=== PATIENT | male | born 1955 | race Caucasian/White ===

== ENCOUNTER 2023-09-27 21:27 | Observation (INO) | payer BC, SELFPAY ==
[2023-09-27] VITALS (19 sets, daily range): BP systolic 153–190; BP diastolic 83–103; PULSE 57–66; RESP 17–28; TEMP 36.4; O2SAT 88–98; BMI 28.4
--- NOTE | 2023-09-27 21:41 | ED_ITS ---
HPI - SOB/Dyspnea General Chief Complaint: Shortness of Breath/Dyspnea Stated Complaint: sob Time Seen by Provider: 09/27/23 21:35 History of Present Illness HPI Narrative: history of CHF and A. fib. Presents complaining of dyspnea for the past week. No fever. Frequent cough. No cigarettes for 40 years. No fever. Has chronic left shoulder pain. No chest pain MD elicited complaint: shortness of breath and cough Pertinent past history: congestive heart failure Related Data Home Medications Medication Instructions Recorded Confirmed apixaban 5 mg tablet (Eliquis) 5 mg PO BID 09/27/23 09/27/23 furosemide 20 mg tablet 20 mg PO QAM 09/27/23 09/27/23 losartan 50 mg tablet 50 mg PO QAM 09/27/23 09/27/23 metoprolol succinate 100 mg 200 mg PO BID 09/27/23 09/27/23 tablet,extended release 24 hr potassium chloride 20 mEq 20 meq PO DAILY 09/27/23 09/27/23 tablet,extended release spironolactone 25 mg tablet 25 mg PO DAILY 09/27/23 09/27/23 Allergies Allergy/AdvReac Type Severity Reaction Status Date / Time No Known Drug Allergies Allergy Verified 09/27/23 21:31 Review of Systems ROS Status of ROS 10 or more systems reviewed and unremarkable except as noted in history and below Exam Constitutional Vital Signs, click to edit/add: Last Vital Signs Temp 97.5 F L 09/27/23 21:31 Pulse 76 09/28/23 00:00 Resp 18 09/28/23 00:00 BP 153/83 H 09/27/23 23:30 Pulse Ox 98 09/28/23 00:00 O2 Del Method Nasal Cannula 09/27/23 23:48 O2 Flow Rate 4 09/27/23 23:48 Common normals: no apparent distress, average body habitus, oriented x3, healthy appearing, alert and well nourished Eye Common normals: EOMs intact bilaterally and conjunctivae normal Respiratory Common normals: normal respiratory effort, no retractions and no use of accessory muscles Effort & inspection: audible wheezes Cardio Common normals: regular rate, regular rhythm, S1 normal heart sound and S2 no rmal heart sound GI Common normals: Normal to inspection, nondistended, normoactive bowel sounds present, soft to palpation and non-tender Extremity Common normals: normal to inspection, full ROM and normal capillary refill Neuro Common normals: oriented x3, CN's II-XII intact bilaterally, moves all extremities and no focal motor deficits Psych Appearance: grossly normal Course Vital Signs Vital signs: Vital Signs Temperature 97.5 F L 09/27/23 21:31 Pulse Rate 63 09/27/23 21:31 Respiratory Rate 20 09/27/23 21:31 Blood Pressure 190/88 H 09/27/23 21:31 Pulse Oximetry 88 L 09/27/23 21:31 Oxygen Delivery Method Room Air 09/27/23 21:31 Temperature 97.5 F L 09/27/23 21:31 Pulse Rate 76 09/28/23 00:00 Respiratory Rate 18 09/28/23 00:00 Blood Pressure 153/83 H 09/27/23 23:30 Pulse Oximetry 98 09/28/23 00:00 Oxygen Delivery Method Nasal Cannula 09/27/23 23:48 Oxygen Delivery Flow Rate 4 09/27/23 23:48 MDM - SOB/Dyspnea MDM Narrative Medical decision making narrative: patient has history of CHF and A. fib . Arrives short of breath and found to have pulse ox RA 88%. Exam with mild diffuse wheeze. No complaint of chest pain. Cxray with mild cardiomegaly. Treated with solumedro and albuterol NMT x2. Wheezing improved but not resolved. Troponin neg x 2. Patient is still requiring supplemental 02. Discussed with the hospitalist and will plan admission Lab Data Labs: Lab Results 09/27/23 Range/Units 21:40 WBC 12.6 H (4.0-11.0) 10^3/uL RBC 4.67 L (4.70-6.10) 10^6/uL Hgb 15.5 (14.0-18.0) g/dL Hct 44.6 (42.0-54.0) % MCV 95.5 H (80.0-94.0) fL MCH 33.2 (25.9-34.0) pg MCHC 34.8 (29.9-35.2) g/dL RDW 13.1 (11.0-15.0) % Plt Count 199 (150-450) 10^3/uL MPV 10.1 (9.5-13.5) fL Neut % (Auto) 62.0 (43.0-75.0) % Lymph % (Auto) 20.2 L (20.5-60.0) % [place] % (Auto) 8.8 (1.7-12.0) % Eos % (Auto) 7.5 H (0.9-7.0) % Baso % (Auto) 1.2 (0.2-2.0) % Neut # (Auto) 7.8 H (1.4-6.5) 10^3/uL Lymph # (Auto) 2.6 (1.2-3.8) 10^3/uL [place] # (Auto) 1.1 H (0.3-0.8) 10^3/uL Eos # (Auto) 0.9 H (0.0-0.7) 10^3/uL Baso # (Auto) 0.2 H (0.0-0.1) 10^3/uL Abs Immat Gran (auto) 0.04 H (0.00-0.03) 10^3/uL Imm/Tot Granulo (auto) 0.3 (0.0-0.5) % Sodium 138 (136-145) mmol/L Potassium 4.2 (3.5-5.1) mmol/L Chloride 100 (98-107) mmol/L Carbon Dioxide 33.8 H (21.0-32.0) mmol/L Anion Gap 8.4 BUN 20.0 H (7.0-18.0) mg/dL Creatinine 1.04 (0.70-1.30) mg/dL Est GFR ( Amer) >60 (>=60) Est GFR (Non-Af Amer) >60 (>=60) BUN/Creatinine Ratio 19.2 Glucose 99 (74-106) mg/dL Calcium 9.6 (8.5-10.1) mg/dL Troponin I High Sens 10.2 (4.0-76.1) pg/mL NT-Pro-B Natriuret Pep 37.0 (<=900.0) pg/mL Discharge Plan Discharge Chief Complaint: Shortness of Breath/Dyspnea Clinical Impression: Congestive heart failure, Hypoxemia, Acute bronchospasm Patient Disposition: Admitted as Observation
--- NOTE | 2023-09-27 21:44 | ECG_ITS ---
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
--- NOTE | 2023-09-27 21:44 | XR_ITS ---
The [address] [address] Patient Name: GARRY STREETER MRN: [id number] date: 1955 Sex: M Assigned Patient Location: ED.MAIN Current Patient Location: ER Accession/Order Number: [id number] Exam Date: 09/27/2023 22:06 Report Date: 09/27/2023 22:34 At the request of: ASTRID GAR Procedure: XR chest 1V EXAM: XR chest 1V HISTORY: short of breath COMPARISON: Chest x-ray 01/15/2023 TECHNIQUE: Single frontal view chest x-ray FINDINGS: Newly developing abnormal 1.8 cm nodular density at the right lower lung region. Mildly enlarged cardiac silhouette. No large pleural effusion, pneumothorax, or acute bony abnormality. XR/XR chest 1V IMPRESSION: Newly developing abnormal 1.8 cm nodular density at the right lower lung region. Recommend CT chest to evaluate for any underlying pulmonary nodule, nodular lung infiltrate, versus summation artifact. Mildly enlarged cardiac silhouette, similar to prior exam. Electronically authenticated by: GARRY GALLAGHER Date: 09/27/2023 22:34
[2023-09-27 21:49] LABS: Basophils Absolute Auto 0.2 10^3/uL (0.0-0.1); Basophils Percent Auto 1.2 % (0.2-2.0); Eosinophils Absolute Auto 0.9 10^3/uL (0.0-0.7); Eosinophils Percent Auto 7.5 % (0.9-7.0); Hematocrit 44.6 % (42.0-54.0); Hemoglobin 15.5 g/dL (14.0-18.0); Immature Granulocytes Abs Auto 0.04 10^3/uL (0.00-0.03); Immature Granulocytes Pct Auto 0.3 % (0.0-0.5); Lymphocytes Absolute Auto 2.6 10^3/uL (1.2-3.8); Lymphocytes Percent Auto 20.2 % (20.5-60.0); Mean Corpuscular HGB Conc 34.8 g/dL (29.9-35.2); Mean Corpuscular Hemoglobin 33.2 pg (25.9-34.0); Mean Corpuscular Volume 95.5 fL (80.0-94.0); Mean Platelet Volume 10.1 fL (9.5-13.5); Monocytes Absolute Auto 1.1 10^3/uL (0.3-0.8); Monocytes Percent Auto 8.8 % (1.7-12.0); Neutrophils Absolute Auto 7.8 10^3/uL (1.4-6.5); Platelet Count 199 10^3/uL (150-450); Red Blood Count 4.67 10^6/uL (4.70-6.10); Red Cell Distribution Width 13.1 % (11.0-15.0); White Blood Count 12.6 10^3/uL (4.0-11.0)
[2023-09-27] MEDS: METHYLPREDNISOLONE SOD SUCC PF 125 MG/2 ML VIAL IVP (22:00)
[2023-09-27 22:10] LABS: Anion Gap 8.4; BUN Creatinine Ratio 19.2; Calcium 9.6 mg/dL (8.5-10.1); Carbon Dioxide 33.8 mmol/L (21.0-32.0); Chloride 100 mmol/L (98-107); Estimated GFR (African America >60 (>=60); Estimated GFR (Non-African Ame >60 (>=60); Glucose 99 mg/dL (74-106); Potassium 4.2 mmol/L (3.5-5.1); Sodium 138 mmol/L (136-145); Troponin I High Sensitivity 10.2 pg/mL (4.0-76.1)
[2023-09-27] MEDS: ALBUTEROL SULFATE 2.5 MG/3 ML VIAL NEB IH ×2 (23:12→23:48)
--- NOTE | 2023-09-27 23:34 | PC.NURSE ---
Pt reports productive cough after breathing treatment, reports breathing improvement. Lung sounds have improved, still wheezing throughout all lung bases.
--- NOTE | 2023-09-27 23:43 | PC.NURSE ---
RN increased O2 needs to 6L nC, pt stating around 93%. Dr Anthony made aware. Additional breathing treatment ordered. RT made aware.
[2023-09-28] VITALS (35 sets, daily range): BP systolic 116–154; BP diastolic 65–88; PULSE 62–96; RESP 13–24; TEMP 36.6–36.7; O2SAT 87–98; BMI 27.1
[2023-09-28 00:53] LABS: Troponin I High Sensitivity 9.4 pg/mL (4.0-76.1)
--- NOTE | 2023-09-28 01:24 | W.PM.TELEPN ---
Progress Note: Subjective Subjective Interval history: 68yo man with a PMHx of CHF presented to the ED with shortness of breath and wheezing. He states that his symptoms started about 2 weeks ago and have slowly been worsening. He has had wheezing, a dry cough initially and now a cough with clear sputum. He denies any fevers, chills, N/V/D/C, chest pain. He has decreased exercise tolerance and was only able to walk about 25 feet before needing to stop. He denies any exposure to chemicals or any recent viral illnesses. Exam Constitutional Vital Signs, click to edit/add: Last Vital Signs Temp 97.5 F L 09/27/23 21:31 Pulse 68 09/28/23 01:00 Resp 18 09/28/23 01:00 BP 153/83 H 09/27/23 23:30 Pulse Ox 96 09/28/23 01:00 O2 Del Method Nasal Cannula 09/27/23 23:48 O2 Flow Rate 4 09/27/23 23:48 Documenting provider has reviewed patient's vital signs: yes Common normals: no apparent distress, average body habitus, oriented x3, no limitations, healthy appearing, alert and well nourished [facility] Common normals: normocephalic, head/scalp atraumatic, hearing grossly normal bilaterally, external ears normal and external nose normal Eye Common normals: PERRL, EOMs intact bilaterally, conjunctivae normal, no scleral icterus, normal visual horn by confrontation and fundi normal bilaterally Neck & C-Spine Common normals: full ROM, no lymphadenopathy, supple, no meningeal signs and no JVD Lymph Lymphatic: no lymphadenopathy noted Chest Common normals: inspection of chest normal and palpation of chest normal Respiratory Common normals: normal respiratory effort, no retractions and no use of accessory muscles Effort & inspection: audible wheezes Cardio Common normals: no JVD, regular rate, regular rhythm, S1 normal heart sound, S2 normal heart sound, no gallops, no clicks, no murmurs, no rub and peripheral pulses 2+ throughout GI Common normals: Normal to inspection, nondistended, normoactive bowel sounds present, soft to palpation and non-tender Extremity Common normals: normal to inspection, full ROM, normal capillary refill, no joint enlargement, no clubbing, cyanosis or edema, no calf tenderness and no pedal edema Progress Note: Objective Labs Labs: Short CBC 09/27/23 Range/Units 21:40 WBC 12.6 H (4.0-11.0) 10^3/uL Hgb 15.5 (14.0-18.0) g/dL Hct 44.6 (42.0-54.0) % Plt Count 199 (150-450) 10^3/uL BMP 09/27/23 21:40 Sodium 138 Potassium 4.2 Chloride 100 Carbon Dioxide 33.8 H BUN 20.0 H Creatinine 1.04 Glucose 99 Calcium 9.6 Progress Note: A&P Assessment and Plan (1) Acute bronchospasm: Assessment and Plan: He presented with wheezing and acute respiratory failure with hypoxia. He does not appear ot be volume overloaded and there is not an obvious infiltrate on imaging. Most likely this is bronchospasm, although he is only a remote smoker. - admit to hospitalist service - c/w supplemental oxygen - c/w methylprednisolone and duonebs - wean oxygen as tolerate (2) Congestive heart failure: Assessment and Plan: Does not appear to be volume overloaded. - c/w spironolactone, losartan - c/w metoprolol - c/w furosemide - I/O, daily weights - keep K >3 and Mg >2 (3) Atrial fibrillation: (4) High blood pressure: Assessment and Plan: Stable. - c/w metoprolol - c/w apixaban Telemedicine Attestation Telemedicine Attestation I conducted this encounter from [place] via secure live, [id number] video conference with the patient, located at [facility] with [facility] . Prior to the interview, the risks and benefits of telemedicine were discussed with the patient and verbal consent was obtained.
--- NOTE | 2023-09-28 01:57 | PC.NURSE ---
Bedside report given to ZOILA Carreon. Pt transported by this RN to bed 219.
[2023-09-28] MEDS: METHYLPREDNISOLONE SOD SUCC PF 40 MG/ML VIAL IVP ×2 (05:04→14:31)
[2023-09-28 05:46] LABS: Basophils Percent Auto 0.3 % (0.2-2.0); Eosinophils Percent Auto 0.2 % (0.9-7.0); Hematocrit 43.6 % (42.0-54.0); Immature Granulocytes Abs Auto 0.07 10^3/uL (0.00-0.03); Immature Granulocytes Pct Auto 0.7 % (0.0-0.5); Lymphocytes Absolute Auto 0.8 10^3/uL (1.2-3.8); Lymphocytes Percent Auto 7.6 % (20.5-60.0); Mean Corpuscular HGB Conc 34.4 g/dL (29.9-35.2); Mean Corpuscular Hemoglobin 32.8 pg (25.9-34.0); Mean Corpuscular Volume 95.2 fL (80.0-94.0); Mean Platelet Volume 10.3 fL (9.5-13.5); Monocytes Absolute Auto 0.1 10^3/uL (0.3-0.8); Monocytes Percent Auto 0.6 % (1.7-12.0); Neutrophils Percent Auto 90.6 % (43.0-75.0); Platelet Count 194 10^3/uL (150-450); Red Blood Count 4.58 10^6/uL (4.70-6.10); Red Cell Distribution Width 12.9 % (11.0-15.0)
[2023-09-28 06:00] LABS: Anion Gap 11.1; BUN Creatinine Ratio 21.4; Calcium 9.3 mg/dL (8.5-10.1); Carbon Dioxide 31.2 mmol/L (21.0-32.0); Chloride 100 mmol/L (98-107); Estimated GFR (African America >60 (>=60); Estimated GFR (Non-African Ame >60 (>=60); Glucose 157 mg/dL (74-106); Potassium 4.3 mmol/L (3.5-5.1); Sodium 138 mmol/L (136-145)
--- NOTE | 2023-09-28 06:44 | CT_ITS ---
[address] [address] Patient Name: GARRY STREETER MRN: [id number] date: 1955 Sex: M Assigned Patient Location: MS Current Patient Location: MS Accession/Order Number: [id number] Exam Date: 09/28/2023 07:40 Report Date: 09/28/2023 08:10 At the request of: SHAIKH JOSE MARIA Procedure: CT chest wo con EXAMINATION: CT chest wo con HISTORY: SOB, abnormal CHESTxr COMPARISON: Plain film 09/27/2023 TECHNIQUE: Multi-planar CT images were created with IV contrast. Axial, Coronal, and Sagittal images. Dose reduction techniques were achieved by using automated exposure control and/or adjustment of mA and/or kV according to patient size and/or use of iterative reconstruction technique. FINDINGS: LUNGS: Scattered punctate subcentimeter pulmonary nodules the largest is subpleural measuring 5.7 mm right lower lobe axial image 58, nonspecific. No focal right basilar nodule or mass to correspond to the plain film findings. Mild peribronchial thickening with no endobronchial filling or bronchiectasis PLEURA: No mass, effusion, or pneumothorax. VASCULATURE: No abnormality. FELIPA: No mass or adenopathy. MEDIASTINUM: No mass or adenopathy. CARDIAC: No enlargement or pericardial effusion. Minimal coronary atherosclerosis AORTA: No aneurysm or dissection. CHEST WALL: No mass or axillary adenopathy. BONES: No bone lesion or fracture. LIMITED ABDOMEN: Bilateral renal cortical hypodensities possibly cysts OTHER: Negative. CT/CT chest wo con IMPRESSION: No focal nodule or mass in the right lung base to correspond to the plain film findings, likely representing resolved atelectasis Scattered subcentimeter nonspecific pulmonary nodules measuring up to 5.7 mm Electronically authenticated by: NICK CABRALES Date: 09/28/2023 08:10
[2023-09-28] MEDS: METOPROLOL SUCCINATE 100 MG TAB.ER.24H 200 MG PO (08:48)
[2023-09-28] MEDS: FUROSEMIDE 40 MG/4 ML VIAL IVP (08:48)
[2023-09-28] MEDS: SPIRONOLACTONE 25 MG TABLET PO (08:49)
[2023-09-28] MEDS: APIXABAN 5 MG TABLET PO (08:49)
[2023-09-28] MEDS: POTASSIUM CHLORIDE 10 MEQ ER TABLET 20 MEQ PO (08:49)
[2023-09-28] MEDS: LOSARTAN POTASSIUM 50 MG TABLET PO (08:49)
[2023-09-28] MEDS: IPRATROPIUM/ALBUTEROL SULFATE 3 ML AMPUL.NEB IH ×4 (11:10→23:13)
--- NOTE | 2023-09-28 11:32 | PM.HP ---
H&P: HPI History of Present Illness Chief complaint: shortness of breath Narrative: 68 y o male with no formal diagnosis of COPD, former smoker, presents with one week hx of worsening SOB, cough with sputum, chest congestion, x 1 week. 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 He was evaluated in ED and w/u indicated acute resp failure with hypoxia. Patient was admitted for it and started on inhaled bronchodilators, systemic steroids. He reports feeling slightly better compared to when he came in. Earlier today, his sats were still in 87-88% on RA. During exam, I noted he had a wet sounding cough and was struggling with intermittent cough spells. Denies fever, chills, nausea, vomiting Review of Systems ROS Status of ROS 10 or more systems reviewed and unremarkable except as noted in history and below [facility] Medical History (Updated 09/28/23 @ 11:39 by Shaikh Segun MD) Atrial fibrillation ?I48.91 - Unspecified atrial fibrillation (ICD-10) Chronic systolic HF (heart failure) ?I50.22 - Chronic systolic (congestive) heart failure (ICD-10) Congestive heart failure ?I50.9 - Heart failure, unspecified (ICD-10) High blood pressure ?I10 - Essential (primary) hypertension (ICD-10) HTN (hypertension) ?I10 - Essential (primary) hypertension (ICD-10) 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 Highest level of school completed/degree received: high school graduate Are you now , , , , never or living with a partner: In a typical week, how many times do you talk on the telephone with family, friends, or neighbors: once per week How often do you get together with friends or relatives: once per week How often do you attend sikh or adventist services: never Do you belong to any clubs or organizations such as sikh groups unions, fraternal or athletic groups, or school groups: yes Total score: 2 Score interpretation: A score of greater than or equal to 2 indicates the lowest level of social isolation. Little interest or pleasure in doing things: not at all Feeling down, depressed, or hopeless: not at all Feel stressed/tense/nervous/anxious/difficulty sleeping: not at all Do you think of yourself as: straight/heterosexual Gender Identity: male Meds Home Medications and Allergies Home Medications Medication Instructions Recorded Confirmed Type apixaban 5 mg tablet (Eliquis) 5 mg PO BID 09/27/23 09/27/23 History furosemide 20 mg tablet 20 mg PO QAM 09/27/23 09/27/23 History losartan 50 mg tablet 50 mg PO QAM 09/27/23 09/27/23 History metoprolol succinate 100 mg 200 mg PO BID 09/27/23 09/27/23 History tablet,extended release 24 hr potassium chloride 20 mEq 20 meq PO DAILY 09/27/23 09/27/23 History tablet,extended release spironolactone 25 mg tablet 25 mg PO DAILY 09/27/23 09/27/23 History Allergies Allergy/AdvReac Type Severity Reaction Status Date / Time No Known Drug Allergies Allergy Verified 09/27/23 21:31 Exam Constitutional Vital Signs, click to edit/add: Last Vital Signs Temp 97.9 F 09/28/23 04:01 Pulse 63 09/28/23 11:11 Resp 20 09/28/23 01:50 BP 139/84 09/28/23 08:50 Pulse Ox 90 L 09/28/23 11:11 O2 Del Method Nasal Cannula 09/28/23 11:11 O2 Flow Rate 1 09/28/23 11:11 Documenting provider has reviewed patient's vital signs: yes Common normals: no apparent distress and oriented x3 General appearance: cooperative HENMT Common normals: normocephalic and head/scalp atraumatic Head and scalp: normocephalic and atraumatic Eye Common normals: conjunctivae normal and no scleral icterus Conjunctiva: conjunctiva(e) normal Respiratory Common normals: normal respiratory effort Effort & inspection: able to speak in complete sentences and actively coughing Auscultation: wheezes expiratory wheezes and throughout Cardio Common normals: regular rate, S1 normal heart sound and S2 normal heart sound Rate: regular rate Heart sounds: S1 normal and S2 normal GI Common normals: Normal to inspection, nondistended, normoactive bowel sounds present, soft to palpation, non-tender and no hepatosplenomegaly Palpation: soft and no hepatosplenomegaly Extremity Common normals: no clubbing, cyanosis or edema Neuro Common normals: oriented x3, moves all extremities and no focal motor deficits Psych Common normals: mental status grossly normal, denies hallucinations, denies homicidal ideation and denies suicidal ideation Results Labs Labs: Short CBC 09/27/23 09/28/23 Range/Units 21:40 04:48 WBC 12.6 H 10.0 (4.0-11.0) 10^3/uL Hgb 15.5 15.0 (14.0-18.0) g/dL Hct 44.6 43.6 (42.0-54.0) % Plt Count 199 194 (150-450) 10^3/uL BMP 09/27/23 09/28/23 21:40 04:48 Sodium 138 138 Potassium 4.2 4.3 Chloride 100 100 Carbon Dioxide 33.8 H 31.2 BUN 20.0 H 22.0 H Creatinine 1.04 1.03 Glucose 99 157 H Calcium 9.6 9.3 Assessment and Plan Assessment and Plan (1) Acute respiratory failure with hypoxia: Assessment and Plan: 87-88 % on RA. No formal diagnosis of COPD. But based on exam, evidence of bronchospasm, wheezing. No consolidative process on CT Suspect acute bronchospasm due to exposure to dust/fumes Feeling better. But still hypoxic with generalized wheezing. Wean off O2 as tolerated. (2) Bronchospasm with bronchitis, acute: Assessment and Plan: No formal diagnosis of COPD. But based on exam, evidence of bronchospasm, wheezing. No consolidative process on CT Suspect acute bronchospasm due to exposure to dust/fumes Feeling better. But still hypoxic with generalized wheezing. Wean off O2 as tolerated. C/w solumedrol, duonebs. On Azithromycin. Mucinex to help with cough. Test for legionella, covid. (3) Atrial fibrillation: Assessment and Plan: On Eliquis for AC. Monitor. on TOprol. (4) HTN (hypertension): Assessment and Plan: BP stable. C/w home meds. (5) Chronic systolic HF (heart failure): Assessment and Plan: Was scheduled for outpatient ECHO. Does not appear to be volume overload. C/w PO lasix. C/w valsartan, aldactone and toprol.
[2023-09-28] MEDS: AZITHROMYCIN 250 MG TABLET 500 MG PO (12:14)
[2023-09-28] MEDS: GUAIFENESIN 600 MG TAB.ER.12H PO (12:14)
--- NOTE | 2023-09-28 12:36 | CM.NOTE ---
Rounded with Dr. Cast. Pt. may have need for home oxygen. international operations manager Karina to meet with patient to discuss DME provider if Oxygen is needed. No other anticipated discharge needs at this time.
[2023-09-28 12:51] LABS: SARS-CoV-2 Ag NEGATIVE (NEGATIVE)
[2023-09-28] MEDS: ACETAMINOPHEN 325 MG TABLET 650 MG PO (14:46)
[2023-09-28 16:11] LABS: SARS-CoV-2 NAA NOT DETECTED (NOT DETECTE)
[2023-09-29] VITALS (13 sets, daily range): BP systolic 121–135; BP diastolic 69–75; PULSE 54–97; RESP 16–18; TEMP 36.3; O2SAT 90–96
[2023-09-29] MEDS: ACETAMINOPHEN 325 MG TABLET 650 MG PO ×2 (00:02→06:00)
[2023-09-29] MEDS: APIXABAN 5 MG TABLET PO ×2 (00:02→08:27)
[2023-09-29] MEDS: METOPROLOL SUCCINATE 100 MG TAB.ER.24H 200 MG PO ×2 (00:02→08:26)
[2023-09-29] MEDS: GUAIFENESIN 600 MG TAB.ER.12H PO ×2 (00:02→08:27)
[2023-09-29] MEDS: METHYLPREDNISOLONE SOD SUCC PF 40 MG/ML VIAL IVP ×2 (00:03→05:57)
[2023-09-29] MEDS: IPRATROPIUM/ALBUTEROL SULFATE 3 ML AMPUL.NEB IH ×2 (06:51→11:15)
[2023-09-29] MEDS: AZITHROMYCIN 250 MG TABLET 500 MG PO (08:26)
[2023-09-29] MEDS: SPIRONOLACTONE 25 MG TABLET PO (08:27)
[2023-09-29] MEDS: LOSARTAN POTASSIUM 50 MG TABLET PO (08:27)
[2023-09-29] MEDS: FUROSEMIDE 40 MG TABLET PO (08:27)
[2023-09-29] MEDS: POTASSIUM CHLORIDE 10 MEQ ER TABLET 20 MEQ PO (08:27)
--- NOTE | 2023-09-29 11:28 | CM.NOTE ---
Anticipated discharge today. Reported to me that the patient does not qualify for home oxygen. Anticipated discharge home today, no needs
--- NOTE | 2023-09-29 11:44 | PM.DS1 ---
DS: Providers Provider Date of admission: 09/28/23 11:30 Primary care physician: PAN RODRIGUEZ Attending physician on discharge: Shaikh Segun Discharging clinician: Shaikh Segun Anticipated date of discharge: 09/29/23 DS: Diagnosis Discharge Diagnosis (1) Acute respiratory failure with hypoxia: Assessment and plan: On RA now. Acute resp failure likely sec to bronchospasm with bronchtitis. He will need outpatient PFTs to /ro COPD once he has fully recovered. (2) Bronchospasm with bronchitis, acute: Assessment and plan: No former/prior hx of COPD but former smoker, presented with increased cough, generalized wheezing with no evidence of PNA. Suspect undiagnosed COPD and will need outpatient PFTs Will d/c on oral prednisone, ventolin as needed along with PO azithroymcin (3) Atrial fibrillation: Assessment and plan: Chronic, stable. C/w Eliquis (4) HTN (hypertension): Assessment and plan: Stable. (5) Chronic systolic HF (heart failure): Assessment and plan: Euvolemic. C/w home meds. Stable (6) Pulmonary nodule: Assessment and plan: Incidental finding on CT chest. Former smoker. Repeat CT chest 6-12 months to ensure stability. Defer to PCP DS: Summary Hospital Course Hospital Course: 68 y o male with no formal diagnosis of COPD, former smoker, presented with one week hx of worsening SOB, cough with sputum, chest congestion, x 1 week. 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 He was evaluated in ED and w/u indicated acute resp failure with hypoxia. Patient was admitted for it and started on inhaled bronchodilators, systemic steroids. Negative COVID PCR. CT chest - no evidence of Pneumonia. 5.7 mm lung nodule that will need outpatient f/u and repeat CT chest in 6-12 months. Patient clinically improved and was doing well today on RA. Stable for d/c Status at Discharge Functional status at discharge: independent ambulation Time Spent with Patient Time attestation: Total time spent providing and/or coordinating discharge services: Time spent: greater than 30 minutes Exam Constitutional Vital Signs, click to edit/add: Last Vital Signs Temp 97.4 F L 09/29/23 05:22 Pulse 64 09/29/23 11:16 Resp 16 09/29/23 11:16 BP 128/69 09/29/23 08:27 Pulse Ox 90 L 09/29/23 11:16 O2 Del Method Room Air 09/29/23 11:16 O2 Flow Rate 2 09/29/23 06:52 Documenting provider has reviewed patient's vital signs: yes Common normals: no apparent distress and oriented x3 General appearance: cooperative HENMT Common normals: normocephalic and head/scalp atraumatic Head and scalp: normocephalic and atraumatic Eye Common normals: conjunctivae normal and no scleral icterus Conjunctiva: conjunctiva(e) normal Respiratory Common normals: normal respiratory effort and clear to auscultation bilaterally Effort & inspection: able to speak in complete sentences Auscultation: clear to auscultation bilaterally Cardio Common normals: regular rate, S1 normal heart sound and S2 normal heart sound Rate: regular rate Heart sounds: S1 normal and S2 normal GI Common normals: Normal to inspection, nondistended, normoactive bowel sounds present, soft to palpation, non-tender and no hepatosplenomegaly Palpation: soft and no hepatosplenomegaly Extremity Common normals: no clubbing, cyanosis or edema Neuro Common normals: oriented x3, moves all extremities and no focal motor deficits Psych Common normals: mental status grossly normal, denies hallucinations, denies homicidal ideation and denies suicidal ideation DS: Data Data Completed and Pending Labs on day of discharge: Labs from last 24 hours 09/28/23 12:10 SARS-CoV-2 (PCR) Negative SARS-CoV-2 RNA (GÓMEZ) Not detected Discharge Plan Discharge Disposition: Home, Self-Care Discharge Medications: New prednisone 20 mg tablet 20 mg PO BID 3 Days Qty: 6 0RF albuterol sulfate [Ventolin HFA] 90 mcg/actuation HFA aerosol inhaler 2 inh inhalation Q4H PRN (Reason: shortness of breath or wheezing) Qty: 6.7 0RF azithromycin 250 mg tablet 250 mg PO DAILY Qty: 3 0RF Continued metoprolol succinate 100 mg tablet extended release 24 hr 200 mg PO BID losartan 50 mg tablet 50 mg PO QAM Eliquis 5 mg tablet 5 mg PO BID potassium chloride 20 mEq tablet extended release 20 meq PO DAILY furosemide 20 mg tablet 20 mg PO QAM spironolactone 25 mg tablet 25 mg PO DAILY Activity: increase activity as tolerated and resume usual activities as tolerated Diet: advance to your usual diet Forms: Portal Instructions Follow Up Appointments: Nursing to schedule follow up appointment with PCP and ensure they address lung nodule and Dr. Cast recommends outpatient lung function testing.
== END 2023-09-29 12:45 | disposition home or self-care (01) ==
LOC: ER 09-28 01:20 → MS 09-28 11:26
PROVIDERS: Internal Medicine; Admitting Provider Internal Medicine; Emergency Provider Internal Medicine; PCP Nurse Practitioner Primary Care; Visit Provider Internal Medicine
DX: J20.9 Acute bronchitis, unspecified (principal); J96.01 Acute respiratory failure with hypoxia; I48.91 Unspecified atrial fibrillation; I11.0 Hypertensive heart disease with heart failure; I50.22 Chronic systolic (congestive) heart failure; R91.1 Solitary pulmonary nodule; Z79.01 Long term (current) use of anticoagulants; Z79.899 Other long term (current) drug therapy; Z87.891 Personal history of nicotine dependence; Z20.822 Contact with and (suspected) exposure to COVID-19
CPT/HCPCS: 36415; 71045; 71250; 80048; 83880; 84484; 85025; 87635; 87811; 93005; 94640; 94667; 94668; 94761; 96374; 96376; 99285; G0378; J2920; J2930; Q3014

== ENCOUNTER 2023-10-08 13:52 | Outpatient (OUT) | payer BC, MEDICARE, SELFPAY ==
--- OUTSIDE RECORDS SUMMARY | 2023-11-09 20:09 | XMS_ITS | CCD ---
Author Name Unknown Address [address] [place] [address] Organization [facility] Care Team Providers Care Granite Setter Name Role Phone TAVIA [place] Attending Unavailable ALGHOSYLVIAANI, MOHSHRADDHA Consulting Unavailable MISC, DR NARANJO Primary Care Unavailable ALGHOTHANI, LEANDROAMAPatience Attending Unavailable ALGHOTHANI, MOHAMAD Admitting Unavailable ALGHOTHANI, MOHAMAD Consulting Unavailable MISC, DR NARANJO Primary Care Unavailable ALGHOTHANI, MOHAMAD Attending Unavailable ALGHOTHANI, MOHAMAD Admitting Unavailable GRILLIS ., DR TAVIA Garcia Consulting Unavaila ble MISC, DR NARANJO Primary Care Unavailable GRILLIS ., DR TAVIA Garcia Attending Unavaila ble GRILLIS ., DR TAVIA Garcia Admitting Unavaila ble WESTNICK Consulting Unavailable NADERER, DR ANDREI Hermosillo Attending Unavailable NADERER, DR ANDREI Hermosillo Admitting Unavailable MISC, DR NARANJO Primary Care Unavailable NADERER, DR ANDREI Hermosillo Consulting Unavailable MOUKARBEL, DR KIRKPATRICK Consulting Unavailable SACHIN ., YANN Consulting Unavailable GRILLIS ., DR TAVIA Garcia Consulting Unavaila ble MISC, DR NARANJO Primary Care Unavailable GRILLIS ., DR TAVIA Garcia Attending Unavaila ble GRILLIS ., DR TAVIA Garcia Admitting Unavaila ble ELAN, IVONNE WESLEY Consulting Unava ilable GEMBUS, DAYNA Consulting Unavailable NEFCYLUZMA Consulting Unavailable MISC, DR NARANJO Primary Care Unavailable SHAMMO, WARREN Attending Unavailable SHAMMO, WARREN Admitting Unavailable SHAMMO, WARREN Consulting Unavailable JAMES, SARAH Consulting Unavailable SHAMMO, WARREN Primary Care Unavailable JAMES, SARAH Attending Unavailable JAMES, SARAH Admitting Unavailable MISC, DR NARANJO Consulting Unavailable MISC, DR NARANJO Primary Care Unavailable MISC, DR NARANJO Attending Unavailable MISC, DR NARANJO Admitting Unavailable ZIEBER, DR MURPHY Moore Consulting Unavailable MISC, DR NARANJO Primary Care Unavailable ALGHOTHANI, LEANDROAMAD Attending Unavailable ALGHOTHANI, MOHAMAD Admitting Unavailable SARAH RAMIREZ Attending Unavailable MEET LEE Attending Unavailable MARTIN SPENCER Attending Unavailable TACHO HOLLAND Attending Unavailable Allergies Allergy Classification Reported Allergen(s) Allergy Type Date of Onset Reaction(s) Facility (2 sources) Acetaminophen; Translations: [ACETAMINOPHEN] Drug Allergy 09-15-2022 [facility] Repository Problems Active Problems Problem Classification Problem Date Documented Da te Episodic/Chronic Cardiac dysrhythmias (10 sources) Paroxysmal atrial fibrillation; Translations: [Unspecified atrial fibrillation] Onset: 05-14-2022 Chronic Congestive heart failure; nonhypertensive (11 sources) Chronic systolic (congestive) heart failure; Translations: [Acute systolic (congestive) heart failure] Onset: 05-04-2022 Chronic Diverticulosis and diverticulitis (1 source) Diverticulosis of large intestine without perforation or abscess without bleeding; Translations: [DVRTCLOS LG INT NO PERF/ABSC W/O BL] Onset: 11-01-2022 Chronic Essential hypertension (6 sources) Essential (primary) hypertension; Translations: [ESSENTIAL PRIMARY HYPERTENSION] Onset: 01-15-2023 Chronic Heart valve disorders (1 source) Rheumatic disorders of both mitral and tricuspid valves; Translations: [RHEUMATIC D/O MITRAL TRICUSPID VALV] Onset: 08-09-2022 Chronic Other circulatory disease (1 source) Other specified symptoms and signs involving the circulatory and respiratory systems; Translations: [OTH SPEC SX SIGNS INVLV CIRC RS] Onset: 01-20-2023 Episodic Other nutritional; endocrine; and metabolic disorders (1 source) Obesity, unspecified; Translations: [OBESITY UNSPECIFIED] Onset: 05-04-2022 Chronic Other nutritional; endocrine; and metabolic disorders (1 source) Body mass index (BMI) 31.0-31.9, adult; Translations: [BODY MASS INDEX BMI 31.0-31.9 ADULT] Onset: 05-04-2022 Chronic Karla-; endo-; and myocarditis; cardiomyopathy (except that caused by tuberculosis or sexually transmitted disease) (4 sources) Other cardiomyopathies; Translations: [Endocarditis, valve unspecified] Onset: 08-30-2023 Chronic Unclassified (1 source) CONTACT W/AND (SUSP) EXPOS COVID-19; Translations: [CONTACT W/AND (SUSP) EXPOS COVID-19] Onset: 10-31-2022 Past or Other Problems Problem Classification Problem Date Documented Da te Episodic/Chronic Other aftercare (1 source) residential (current) use of anticoagulants; Translations: [SENIOR LIVING CURRNT USE ANTICOAGULANTS] Onset: 11-01-2022 Episodic Other and unspecified benign neoplasm (1 source) Benign neoplasm of sigmoid colon; Translations: [BENIGN NEOPLASM OF SIGMOID COLON] Onset: 11-01-2022 Episodic Other and unspecified benign neoplasm (1 source) Benign lipomatous neoplasm of other sites; Translations: [JOSE LUIS LIPOMATOUS NEOPLASM OTH SITES] Onset: 11-01-2022 Episodic Other gastrointestinal disorders (4 sources) Diarrhea, unspecified; Translations: [DIARRHEA UNSPECIFIED] Onset: 10-28-2022 Episodic Other lower respiratory disease (2 sources) Shortness of breath; Translations: [Shortness of breath] Onset: 07-25-2022 Episodic Other non-traumatic joint disorders (1 source) Pain in left knee; Translations: [PAIN IN LEFT KNEE] Onset: 05-19-2022 Episodic Other non-traumatic joint disorders (1 source) Effusion, left knee; Translations: [EFFUSION LEFT KNEE] Onset: 05-04-2022 Episodic Residual codes; unclassified (1 source) Family history of malignant neoplasm of digestive organs; Translations: [FAM HX MALIG NEOPLASM DIGESTIV ORGN] Onset: 11-01-2022 Episodic Residual codes; unclassified (2 sources) Localized edema; Translations: [Localized edema] Onset: 07-25-2022 Episodic Screening and history of mental health and substance abuse codes (1 source) Personal history of nicotine dependence; Translations: [PERSONAL HISTORY OF NICOTINE DEPEND] Onset: 05-04-2022 Episodic Results Test Name Value Interpretation Reference Range Facil ity 36on 11-05-2023 36 I dont see a specifi c reason why he could not be started on it so should be fine Normal [facility] Telephoneon 11-04-2023 Telephone [id number] Ben Streeter W 1955 M Date Provider Department Center 11/04/2023 MONICA BARRIENTOS C[facility] Family History Problem Relation Age of Onset Colon cancer Brother Family Status - Relation Status Age at Brother Normal [facility] Office Visiton 08-30-2023 Follow-up visit [id number] Ben Streeter rt W 1955 M Date Provider Department Center 08/30/2023 [id number] SPENCER [facility] Esha Champion Family History Problem Relation Age of Onset Colon cancer Brother Family Status - Relation Status Age at Brother Level of Service:09861 [place] OFFICE/OUTPATIENT ESTABLISHED MOD MDM 30-39 MIN Normal [facility] Office Visiton 03-22-2023 Follow-up visit [id number] Ben Streeter rt W 1955 M Date Provider Department Center 03/22/2023 [id number] LEANDROSHRADDHA [facility] Family History Problem Relation Age of Onset Colon cancer Brother Family Status - Relation Status Age at Brother Level of Service:07698 [place] OFFICE/OUTPATIENT ESTABLISHED MOD MDM 30-39 MIN Reason for Visit and Comments: Follow-up [445732] - f/u echo Normal [facility] ECHOCARDIO M/2D COMPLETEon 0 03-01-2023 ECHOCARDIO M/2D COMPLETE Patient: GARRY STREETER Exam Date: 03/01/2023 : 1955 Gender:M Ordering : SARAH RAMIREZ Admission #: [id number] Family : WARREN JOYNER SEAM STEAMER-C Order #: [id number] CLICK HERE TO VIEW EXAM ECHOCARDIOGRAM REPORT PROCEDURE: CARDIO PULMONARY ECHOCARDIO M/2D COMP INDICATIONS: Chronic systolic heart failure, Paroxysmal Afib COMPARISON: None. DESCRIPTION: COMPLETE ECHOCARDIOGRAM Real-time transthoracic echocardiography with 2D, M-mode, spectral and color flow Doppler performed. QUALITY: Technical quality was good. LEFT VENTRICLE: Normal chamber size. Mild concentric left ventricular hypertrophy. LV EF: Global left ventricular systolic function is normal. Calculated left ventricular ejection fraction is 55% DIASTOLIC: Grade 2, moderate diastolic dysfunction. ATRIAL SEPTUM: Inadequately seen. LEFT ATRIUM: Severe dilatation. RIGHT ATRIUM: Moderate dilatation. RIGHT VENTRICLE: Normal chamber size. Normal right ventricular systolic function. TRICUSPID VALVE: Normal mobility and thickness. Mild regurgitation. Mild pulmonary hypertension. RVSP 42mmHg MITRAL VALVE: Normal mobility and thickness. No mitral valve prolapse. No evidence of mitral valve stenosis. There is no mitral annular calcification. Mild mitral regurgitation. AORTIC VALVE: Normal trileaflet appearance. No visible sclerosis. Normal leaflet mobility. No evidence of aortic valve stenosis. Mild aortic regurgitation. AORTIC ROOT: Normal diameter and appearance. PULMONIC VALVE: Normal thickness and mobility. No stenosis. Mild regurgitation. PERICARDIUM: Anterior free space; trivial effusion versus fat pad. IVC: Collapses with inspirations. Normal size CONCLUSION: Global left ventricular systolic function is normal; visually estimated ejection fraction is 55 to 60%. No significant wall motion abnormalities. Mild left ventricular hypertrophy. Grade 2 diastolic dysfunction. Biatrial enlargement. Right ventricle is normal in size and systolic function. Mild tricuspid regurgitation. Mildly elevated right ventricular systolic pressure. Mild mitral, aortic, and pulmonic regurgitation. Anterior free space; trivial effusion versus fat pad. Adult Echocardiography Procedure Report Left Ventricle LVEDD (3.7 - 5.6 cm): 4.91 cm LVESD (2.2 - 4.0 cm): 3.55 cm LVIVS thickness (0.6 - 1.2 cm): 1.32 cm LVPW thickness (0.5 - 1.0 cm): 1.32 cm e': 0.09 m/s E - e': 6.73 LVOT Max Gradient: 3.24 mm[Hg] Peak Velocity (LVOT): 0.90 m/s Mean Velocity (LVOT): 0.59 m/s LVOT Diameter 2.51 cm Left Atrium LA Volume Index (2D A2C): 111.68 ml, 111.68 ml Left Atrium Systolic Dimension: 4.95 cm Mitral Valve MV E to A Ratio: 1.09 Mitral Valve A-Wave Peak Velocity: 0.58 m/s Mitral Valve E-Wave Peak Velocity: 0.63 m/s Right Ventricle RV Internal Diastolic Dimension: 3.25 cm Aorta AO Root Diam: 3.55 cm Ascending Ao Diam: 3.37 cm Aortic Valve AoV Area (Peak Jose): 4.00 cm2, 4.00 cm2 AoV Area (VTI): 4.58 cm2, 4.58 cm2 Peak Velocity(Antegrade Flow): 1.11 m/s Peak Gradient(Antegrade Flow): 4.92 mm[Hg] Mean Velocity(Antegrade Flow): 0.66 m/s Mean Gradient(Antegrade Flow): 2.02 mm[Hg] Velocity Time Integral: 22.85 cm Tricuspid Valve Peak Velocity (Regurgitant Flow): 2.56 m/s, 2.48 m/s, 3.14 m/s Peak Velocity: 0.45 m/s Pulmonic Valve Mean Gradient: 2.78 mm[Hg], 2.94 mm[Hg] Mean Velocity: 0.77 m/s, 0.78 m/s Peak Velocity: 1.28 m/s, 1.37 m/s Peak Gradient: 6.58 mm[Hg], 7.52 mm[Hg] Right Atrium Right Atrium Systolic Pressure: 60.97 ml, 60.97 ml Dictated by: Justen Baumann M.D. on 03/01/2023 at 09:17 Approved by: Justen Baumann M.D. on 03/01/2023 at 09:21 Normal [facility] Office Visiton 02-03-2023 Follow-up visit [id number] Ben Streeter rt W 1955 M Date Provider Department Center 02/03/2023 SARAH KHAN [facility] Family History Problem Relation Age of Onset Colon cancer Brother Family Status - Relation Status Age at Brother Level of Service:52222 [place] OFFICE/OUTPATIENT ESTABLISHED MOD MDM 30-39 MIN Reason for Visit and Comments: Med Refill [370818] Atrial Fibrillation [80] Congestive Heart Failure [127] Normal [facility] BNPon 01-15-2023 Natriuretic peptide B (Bld) [Mass/Vol] 20.0 pg/mL Normal <=900.0 [facility] Comment on above: Performed By: #### B SEAM STEAMER, MG, CMP #### [facility] [address] [place] [address] Dr. Miah Veloz HEMOGRAM AND PLATELon 2022 Hematocrit (Bld) [Volume fraction] 41.3 % Critically low 42.0-54.0 [facility] Comment on above: Performed By: #### B SEAM STEAMER, CMP, HSTROPN #### [facility] [address] [place] [address] Dr. Miah Veloz Hemoglobin (Bld) [Mass/Vol] 14.2 g/dL Normal 14.0-18. 0 [facility] Comment on above: Performed By: #### B SEAM STEAMER, CMP, HSTROPN #### [facility] [address] [address] [address] Miah Veloz MCH (RBC) [Entitic mass] 31.5 pg Normal 25.9-34.0 [facility] Comment on above: Performed By: #### B SEAM STEAMER, CMP, HSTROPN #### [facility] [address] [place] [address] Dr. Miah Veloz MCHC (RBC) [Mass/Vol] 34.4 g/dL Normal 29.9-35.2 [facility] Comment on above: Performed By: #### B SEAM STEAMER, CMP, HSTROPN #### [facility] [address] [place] [address] Dr. Miah Veloz MCV (RBC) [Entitic vol] 91.6 fL Normal 80.0-94.0 [facility] Comment on above: Performed By: #### B SEAM STEAMER, CMP, HSTROPN #### [facility] [address] [place] [address] Dr. Miah Veloz PLT 173 103/ul Normal 150-450 [facility] Comment on above: Performed By: #### B SEAM STEAMER, CMP, HSTROPN #### [facility] [address] [place] [address] Dr. Miah Veloz RBC 4.51 106/ul Critically low 4.70-6.10 [facility] Comment on above: Performed By: #### B SEAM STEAMER, CMP, HSTROPN #### [facility] [address] [place] [address] Dr. Miah Veloz WBC 5.8 103/ul Normal 4.0-11.0 [facility] Comment on above: Performed By: #### B SEAM STEAMER, CMP, HSTROPN #### [facility] [address] [place] [address] Dr. Miah Veloz MAGNESIUMon 01-15-2023 Magnesium [Mass/Vol] 1.9 mg/dL Normal 1.8-2.4 [facility] Comment on above: Performed By: #### B SEAM STEAMER, MG, CMP #### [facility] [address] [place] [address] Dr. Miah Veloz PROF 14(COMP METB)on 023 Albumin [Mass/Vol] 3.8 g/dL Normal 3.4-5.0 [facility] Comment on above: Performed By: #### B SEAM STEAMER, MG, CMP #### [facility] [address] [place] [address] Dr. Miah Veloz Albumin/Globulin [Mass ratio] 0.9 {ratio} Normal [facility] Comment on above: Performed By: #### B SEAM STEAMER, MG, CMP #### [facility] [address] [place] [address] Dr. Miah Veloz ALP [Catalytic activity/Vol] 86 U/L Normal 46-116 [facility] Comment on above: Performed By: #### B SEAM STEAMER, MG, CMP #### [facility] [address] [place] [address] Dr. Miah Veloz ALT [Catalytic activity/Vol] 26 U/L Normal 16-63 [facility] Comment on above: Performed By: #### B SEAM STEAMER, MG, CMP #### [facility] [address] [place] [address] Dr. Miah Veloz Anion gap [Moles/Vol] 11.3 mmol/L Normal [facility] Comment on above: Performed By: #### B SEAM STEAMER, MG, CMP #### [facility] [address] [place] [address] Dr. Miah Veloz AST [Catalytic activity/Vol] 18 U/L Normal 15-37 [facility] Comment on above: Performed By: #### B SEAM STEAMER, MG, CMP #### [facility] [address] [place] [address] Dr. Miah Veloz Bilirubin [Mass/Vol] 0.6 mg/dL Normal 0.2-1.0 [facility] Comment on above: Performed By: #### B SEAM STEAMER, MG, CMP #### [facility] [address] [place] [address] Dr. Miah Veloz Calcium [Mass/Vol] 9.4 mg/dL Normal 8.5-10.1 [facility] Comment on above: Performed By: #### B SEAM STEAMER, MG, CMP #### [facility] [address] [place] [address] Dr. Miah Veloz Chloride [Moles/Vol] 105 mmol/L Normal 98-107 [facility] Comment on above: Performed By: #### B SEAM STEAMER, MG, CMP #### [facility] [address] [place] [address] Dr. Miah Veloz CO2 [Moles/Vol] 30.2 mmol/L Normal 21.0-32.0 [facility] Comment on above: Performed By: #### B SEAM STEAMER, MG, CMP #### [facility] [address] [place] [address] Dr. Miah Veloz Creatinine [Mass/Vol] 0.88 mg/dL Normal 0.70-1.30 [facility] Comment on above: Performed By: #### B SEAM STEAMER, MG, CMP #### [facility] [address] [place] [address] Dr. Miah Veloz EGFR-AF IRANIAN >60 Normal >=60 [facility] Comment on above: Performed By: #### B SEAM STEAMER, MG, CMP #### [facility] [address] [place] [address] Dr. Miah Veloz EGFR-NON AF IRANIAN >60 Normal >=60 [facility] Comment on above: Performed By: #### B SEAM STEAMER, MG, CMP #### [facility] [address] [place] [address] Dr. Miah Veloz Globulin (S) [Mass/Vol] 4.1 g/dL Normal [facility] Comment on above: Performed By: #### B SEAM STEAMER, MG, CMP #### [facility] [address] [place] [address] Dr. Miah Veloz Glucose [Mass/Vol] 98 mg/dL Normal 74-106 [facility] Comment on above: Performed By: #### B SEAM STEAMER, MG, CMP #### [facility] [address] [place] [address] Dr. Miah Veloz Potassium [Moles/Vol] 4.5 mmol/L Normal 3.5-5.1 [facility] Comment on above: Performed By: #### B SEAM STEAMER, MG, CMP #### [facility] [address] [place] [address] Dr. Miah Veloz Protein [Mass/Vol] 7.9 g/dL Normal 6.4-8.2 [facility] Comment on above: Performed By: #### B SEAM STEAMER, MG, CMP #### [facility] [address] [place] [address] Dr. Miah Veloz Sodium [Moles/Vol] 142 mmol/L Normal 136-145 [facility] Comment on above: Performed By: #### B SEAM STEAMER, MG, CMP #### [facility] [address] [place] [address] Dr. Miah Veloz Urea nitrogen [Mass/Vol] 15.0 mg/dL Normal 7.0-18.0 [facility] Comment on above: Performed By: #### B SEAM STEAMER, MG, CMP #### [facility] [address] [place] [address] Dr. Miah Veloz Urea nitrogen/Creatinine [Mass ratio] 17.0 mg/mg Normal [facility] Comment on above: Performed By: #### B SEAM STEAMER, MG, CMP #### [facility] [address] [place] [address] Dr. Miah Veloz XR CHEST 2 Von 01-15-2023 XR CHEST 2 V EXAM: XR CHEST 2 V HISTORY: Cardiovascular symptoms COMPARISON: None. TECHNIQUE: Upright PA and lateral chest x-ray FINDINGS: The heart is borderline enlarged which may be exaggerated by shallow inspiration. The vasculature is not distended. Subtle opacity at the right lung base indicates atelectasis or infiltrate. There is no other evidence of a focal infiltrate, effusion or pneumothorax. Degenerative changes are seen in the spine. IMPRESSION: Mild cardiac enlargement which may be exaggerated by shallow inspiration. There is no evidence of overt cardiac decompensation. Subtle opacity at the right lung base suggest atelectasis or infiltrate. A follow-up study encouraging the patient to take a deep inspiration in the upright position is recommended. Electronically authenticated by: LUZMA PHAM Date: 2023-01-15 12:47 Normal [facility] SURGICAL PATH REPORTon 10-29 SURGICAL PATH REPORT [facility] Department of Pathology [address] [place] [id number] Name: GARRY STREETER : 1955 Financial [id number] Number: Gender Male Locatio INDIO MILLRY : n: Admit 67 years Attending TAVIA [place] Age: Provider: Ordering TAVIA [place] Provider: Consulti Surgical Pathology Report ng: ACCESSION: COLLECTED DATE/TIME: RECEIVED DATE/TIME: PATHOLOGIST: [id number] 10/28/2022 11:24 EST 10/28/2022 11:24 EST MATT PELAEZ MD Final Diagnosis Report for [facility] [place] (A) SIGMOID POLYP AT 40 CM: - TUBULAR ADENOMA. (B) DESCENDING COLON, BIOPSY: - COLONIC MUCOSA, NO DIAGNOSTIC ABNORMALITY RECOGNIZED. COMMENT: Evidence of microscopic colitis is not seen. (C) POLYP AT 20 CM: - SUBMUCOSAL LIPOMA. MATT PELAEZ PATHOLOGIST (Electronic Signature) Date Verified 10/29/2022 LN Clinical Data PRE-OP DIAGNOSIS: Not specified POST-OP DIAGNOSIS: Diarrhea PROCEDURES: Colonoscopy with biopsy, hot snare polypectomies SPECIMEN: (A) 40 cm sigmoid polyp (B) Descending colon biopsy (C) Polyp at 20 cm / Ambulatory surgery ____ Print 10/29/2022 14:17 EST Number: Date/Time: [facility] Department of Pathology [address] [place] [phone] Name: GARRY STREETER : 1955 Financial [id number] Number: Gender Male Dimas BORJAS MILLRY : n: Admit 67 years Attending TAVIA OH Age: Provider: Ordering TAVIA OH Provider: Mikei Surgical Pathology Report ng: ACCESSION: COLLECTED DATE/TIME: RECEIVED DATE/TIME: PATHOLOGIST: [id number] 10/28/2022 11:24 EST 10/28/2022 11:24 EST MATT PELAEZ MD Gross Description (A) Labeled 40 cm sigmoid polyp. Received in formalin on a sponge is a single irregular spencer segment of soft tissue measuring 1.0 x 0.8 x 0.8 cm bisected longitudinally. The specimen is entirely submitted in one cassette. (B) Labeled descending colon biopsy. Received in formalin on a sponge is a single irregular spencer segment of soft tissue measuring 0.5 x 0.3 x 0.3 cm. The specimen is entirely submitted in one cassette. (C) Labeled polyp at 20 cm. Received in formalin on a sponge is a single irregular spencer segment of soft tissue measuring 2.0 x 1.8 x 1.6 cm. The area of attachment is inked in blue. The segment is trisected and entirely submitted in three cassette. MP/ald 10/28/2022 Tissue pathology report for: [facility], [address] [place] [address]; PATHOLOGY SERVICES PROVIDED BY [employer] (CLIA #[id number]) in cooperation with [facility] at [address] [place] [address] ( CLIA #[id number]) Codes CPT CODE: 36177W4 ____ Print 10/29/2022 14:17 EST Number: Date/Time: [facility] Comment on above: Performed By: #### 9 [id number] #### [facility] [address] [place] [address] Support Merchandiser: Matt Pelaez MD Cov[facility]-19 [facility] ([facility]on SARS-CoV-2 (COVID-19) RNA GÓMEZ+probe Ql (Unsp spec) Not detected Normal NOT DETECTED [facility] Comment on above: Result Comment: This test is not yet approved or cleared by the [place] FDA. When there are no FDA-approved or cleared tests available, and other criteria are met, FDA can make tests available under an emergency access mechanism called an Emergency Use Authorization (EUA). The EUA for this test is supported by the [place] of Health and Human Service's (HHS's) declaration that circumstances exist to justify the emergency use of in vitro diagnostics for the detection and/or diagnosis of the virus that causes COVID-19. This EUA will remain in effect (meaning this test can be used) for the duration of the COVID-19 declaration justifying emergency of IVDs, unless it is terminated or revoked by FDA (after which the test may no longer be used). When diagnostic testing is negative, the possibility of a false negative should be considered in the context of a patient's recent exposures and the presence of clinical signs and symptoms consistent with SARS-CoV-2. Performed By: #### C VDTBH #### [facility] [address] [place] [address] Dr. Miah Veloz CBC AUTO DIFFon 08-10-2022 BASO # 0.1 103/ul Normal 0.0-0.1 [facility] Comment on above: Performed By: #### B SEAM STEAMER, CMP, HSTROPN #### [facility] [address] [address] [address] Miah Veloz Basophils/100 WBC (Bld) 0.7 % Normal 0.2-2.0 [facility] Comment on above: Performed By: #### B SEAM STEAMER, CMP, HSTROPN #### [facility] [address] [place] [address] Dr. Miah Veloz EO # 0.4 103/ul Normal 0.0-0.7 [facility] Comment on above: Performed By: #### B SEAM STEAMER, CMP, HSTROPN #### [facility] [address] [place] [address] Dr. Miah Veloz Eosinophils/100 WBC (Bld) 4.1 % Normal 0.9-7.0 [facility] Comment on above: Performed By: #### B SEAM STEAMER, CMP, HSTROPN #### [facility] [address] [place] [address] Dr. Miah Veloz Erythrocyte distribution wid th (RBC) [Ratio] 16.0 % Critically high 11.0-15.0 [facility] pital Comment on above: Performed By: #### B SEAM STEAMER, CMP, HSTROPN #### [facility] [address] [place] [address] Dr. Miah Veloz Hematocrit (Bld) [Volume fraction] 41.2 % Critically low 42.0-54.0 [facility] Comment on above: Performed By: #### B SEAM STEAMER, CMP, HSTROPN #### [facility] [address] [place] [address] Dr. Miah Veloz Hemoglobin (Bld) [Mass/Vol] 14.1 g/dL Normal 14.0-18. 0 [facility] Comment on above: Performed By: #### B SEAM STEAMER, CMP, HSTROPN #### [facility] [address] [place] [address] Dr. Miah Veloz IG # 0.03 10e3/ul Normal 0.00-0.03 [facility] Comment on above: Performed By: #### B SEAM STEAMER, CMP, HSTROPN #### [facility] [address] [place] [address] Dr. Miah Veloz IG % 0.3 % Normal 0.0-0.5 [facility]ital Comment on above: Performed By: #### B SEAM STEAMER, CMP, HSTROPN #### [facility] [address] [place] [address] Dr. Miah Veloz LYMPH # 2.8 103/ul Normal 1.2-3.8 [facility] Comment on above: Performed By: #### B SEAM STEAMER, CMP, HSTROPN #### [facility] [address] [place] [address] Dr. Miah Veloz Lymphocytes/100 WBC (Bld) 28.5 % Normal 20.5-60.0 [facility] Comment on above: Performed By: #### B SEAM STEAMER, CMP, HSTROPN #### [facility] [address] [place] [address] Dr. Miah Veloz MANUAL DIFF REQ NO Normal [facility] Comment on above: Performed By: #### B SEAM STEAMER, CMP, HSTROPN #### [facility] [address] [place] [address] Dr. Miah Veloz MCH (RBC) [Entitic mass] 32.4 pg Normal 25.9-34.0 [facility] Comment on above: Performed By: #### B SEAM STEAMER, CMP, HSTROPN #### [facility] [address] [place] [address] Dr. Miah Veloz MCHC (RBC) [Mass/Vol] 34.2 g/dL Normal 29.9-35.2 [facility] Comment on above: Performed By: #### B SEAM STEAMER, CMP, HSTROPN #### [facility] [address] [place] [address] Dr. Miah Veloz MCV (RBC) [Entitic vol] 94.7 fL Critically high 80.0-94 .0 [facility] Comment on above: Performed By: #### B SEAM STEAMER, CMP, HSTROPN #### [facility] [address] [place] [address] Dr. Miah Veloz MONO # 0.8 103/ul Normal 0.3-0.8 [facility] Comment on above: Performed By: #### B SEAM STEAMER, CMP, HSTROPN #### [facility] [address] [place] [address] Dr. Miah Veloz Monocytes/100 WBC (Bld) 7.6 % Normal 1.7-12.0 [facility] Comment on above: Performed By: #### B SEAM STEAMER, CMP, HSTROPN #### [facility] [address] [place] [address] Dr. Miah Veloz NEUT # 5.8 103/ul Normal 1.4-6.5 [facility] Comment on above: Performed By: #### B SEAM STEAMER, CMP, HSTROPN #### [facility] [address] [place] [address] Dr. Miah Veloz Neutrophils/100 WBC (Bld) 58.8 % Normal 43.0-75.0 [facility] Comment on above: Performed By: #### B SEAM STEAMER, CMP, HSTROPN #### [facility] [address] [place] [address] Dr. Miah Veloz Platelet mean volume (Bld) [ Entitic vol] 10.3 fL Normal 9.5-13.5 [facility] Comment on above: Performed By: #### B SEAM STEAMER, CMP, HSTROPN #### [facility] [address] [place] [address] Dr. Miah Veloz PLT 184 103/ul Normal 150-450 [facility] Comment on above: Performed By: #### B SEAM STEAMER, CMP, HSTROPN #### [facility] [address] [place] [address] Dr. Miah Veloz RBC 4.35 106/ul Critically low 4.70-6.10 [facility] Comment on above: Performed By: #### B SEAM STEAMER, CMP, HSTROPN #### [facility] [address] [place] [address] Dr. Miah Veloz WBC 9.9 103/ul Normal 4.0-11.0 [facility] Comment on above: Performed By: #### B SEAM STEAMER, CMP, HSTROPN #### [facility] [address] [place] [address] Dr. Miah Veloz PROF CHEM 8 (BAS METB)on Anion gap [Moles/Vol] 13.2 mmol/L Normal [facility] Comment on above: Performed By: #### B SEAM STEAMER, CMP, HSTROPN #### [facility] [address] [place] [address] Dr. Miah Veloz Calcium [Mass/Vol] 8.8 mg/dL Normal 8.5-10.1 [facility] Comment on above: Performed By: #### B SEAM STEAMER, CMP, HSTROPN #### [facility] [address] [place] [address] Dr. Miah Veloz Chloride [Moles/Vol] 107 mmol/L Normal 98-107 [facility] Comment on above: Performed By: #### B SEAM STEAMER, CMP, HSTROPN #### [facility] [address] [place] [address] Dr. Miah Veloz CO2 [Moles/Vol] 25.5 mmol/L Normal 21.0-32.0 [facility] Comment on above: Performed By: #### B SEAM STEAMER, CMP, HSTROPN #### [facility] [address] [place] [address] Dr. Miah Veloz Creatinine [Mass/Vol] 1.37 mg/dL Critically high 0.70-1.30 [facility] Comment on above: Performed By: #### B SEAM STEAMER, CMP, HSTROPN #### [facility] [address] [place] [address] Dr. Miah Veloz EGFR-AF IRANIAN >60 Normal >=60 [facility] Comment on above: Performed By: #### B SEAM STEAMER, CMP, HSTROPN #### [facility] [address] [place] [address] Dr. Miah Veloz EGFR-NON AF IRANIAN 52 mL/min/1.73m2 Critically low >=60 [facility] Comment on above: Performed By: #### B SEAM STEAMER, CMP, HSTROPN #### [facility] [address] [place] [address] Dr. Miah Veloz Glucose [Mass/Vol] 103 mg/dL Normal 74-106 [facility] Comment on above: Performed By: #### B SEAM STEAMER, CMP, HSTROPN #### [facility] [address] [place] [address] Dr. Miah Veloz Potassium [Moles/Vol] 4.7 mmol/L Normal 3.5-5.1 [facility] Comment on above: Performed By: #### B SEAM STEAMER, CMP, HSTROPN #### [facility] [address] [address] [address] Miah Veloz Sodium [Moles/Vol] 141 mmol/L Normal 136-145 [facility] Comment on above: Performed By: #### B SEAM STEAMER, CMP, HSTROPN #### [facility] [address] [address] [address] Miah Veloz Urea nitrogen [Mass/Vol] 32.0 mg/dL Critically high 7.0-18 .0 [facility] Comment on above: Performed By: #### B SEAM STEAMER, CMP, HSTROPN #### [facility] [address] [address] [address] Miah Veloz Urea nitrogen/Creatinine [Mass ratio] 23.4 mg/mg Normal [facility] Comment on above: Performed By: #### B SEAM STEAMER, CMP, HSTROPN #### [facility] [address] [address] [address] Miah Veloz ECHOCARDIO M/2D COMPLETEon 0 08-05-2022 ECHOCARDIO M/2D COMPLETE Patient: GARRY STREETER Exam Date: 08/05/2022 : 1955 Gender:M [id number] Family : Order #: [id number] CLICK HERE TO VIEW EXAM ECHOCARDIOGRAM REPORT PROCEDURE: CARDIO PULMONARY ECHOCARDIO M/2D COMP INDICATIONS: Acute systolic heart failure, Atrial Fibrillation COMPARISON: None. DESCRIPTION: COMPLETE ECHOCARDIOGRAM Real-time transthoracic echocardiography with 2D, M-mode, spectral and color flow Doppler performed. QUALITY: Technical quality was adequate. 72 204# 122/78 HR LEFT VENTRICLE: Normal chamber size. Normal left ventricular wall thickness. LV EF: Global left ventricular systolic function is severely decreased. Visual estimation of left ventricular ejection fraction is 20 - 25%. Global left ventricular hypokinesis. Apical trabeculation noted. No obvious left ventricular thrombus. DIASTOLIC: Not adequately assessed due to heart rhythm. ATRIAL SEPTUM: Inadequately seen. LEFT ATRIUM: Severe dilatation. RIGHT ATRIUM: Moderate dilatation. RIGHT VENTRICLE: Mild dilatation. Normal right ventricular systolic function. TRICUSPID VALVE: Normal mobility and thickness. Mild to moderate regurgitation. Doppler studies reveal mildly (35-45) elevated right sided pressures. RVSP 35 mmHg MITRAL VALVE: Normal mobility and thickness. No evidence of mitral valve stenosis. Mild mitral annular calcification. Mild mitral regurgitation. AORTIC VALVE: No evidence of aortic valve stenosis. Mild focal aortic valve sclerosis. Mild aortic regurgitation. AORTIC ROOT: Normal diameter and appearance. The ascending aorta is at upper normal limits in size. PULMONIC VALVE: Normal thickness and mobility. No stenosis. Trivial regurgitation. PERICARDIUM: No evidence of pericardial effusion. IVC: Collapses with inspirations. IVC is normal in size. CONCLUSION: Global left ventricular systolic function is severely reduced; visually estimated ejection fraction is 20 to 25%. Diffuse global hypokinesis. Biatrial enlargement. The right ventricle is dilated with normal systolic function. Mild to moderate tricuspid regurgitation. Mildly elevated right-sided pressures. Mild mitral regurgitation. Mild aortic regurgitation. Adult Echocardiography Procedure Report Left Ventricle LVEDD (3.7 - 5.6 cm): 5.54 cm LVESD (2.2 - 4.0 cm): 4.95 cm LVPW thickness (0.5 - 1.0 cm): 0.82 cm Left Ventricular Ejection Fraction: 22.98 %, 22.98 % Left Atrium Mitral Valve Right Ventricle Aorta Aortic Valve Peak Velocity (Antegrade Flow): 1.36 m/s Tricuspid Valve TV Mean Gradient: 0.99 mm[Hg] Peak Velocity (Regurgitant Flow): 0.54 m/s, 0.45 m/s Mean Velocity: 0.50 m/s Pulmonic Valve Right Atrium Dictated by: Justen Baumann M.D. on 08/05/2022 at 14:29 Approved by: Justen Baumann M.D. on 08/05/2022 at 14:32 Normal [facility] PROF 14(COMP METB)on 022 Albumin [Mass/Vol] 3.4 g/dL Normal 3.4-5.0 [facility] Comment on above: Performed By: #### B SEAM STEAMER, CMP, HSTROPN #### [facility] [address] [place] [address] Dr. Miah Veloz Albumin/Globulin [Mass ratio] 0.9 {ratio} Normal [facility] Comment on above: Performed By: #### B SEAM STEAMER, CMP, HSTROPN #### [facility] [address] [address] [address] Miah Veloz ALP [Catalytic activity/Vol] 73 U/L Normal 46-116 [facility] Comment on above: Performed By: #### B SEAM STEAMER, CMP, HSTROPN #### [facility] [address] [address] [address] Miah Veloz ALT [Catalytic activity/Vol] 31 U/L Normal 16-63 [facility] Comment on above: Performed By: #### B SEAM STEAMER, CMP, HSTROPN #### [facility] [address] [place] [address] Dr. Miah Veloz Anion gap [Moles/Vol] 13.6 mmol/L Normal [facility] Comment on above: Performed By: #### B SEAM STEAMER, CMP, HSTROPN #### [facility] [address] [place] [address] Dr. Miah Veloz AST [Catalytic activity/Vol] 14 U/L Critically low 15- 37 [facility] Comment on above: Performed By: #### B SEAM STEAMER, CMP, HSTROPN #### [facility] [address] [place] [address] Dr. Miah Veloz Bilirubin [Mass/Vol] 0.6 mg/dL Normal 0.2-1.0 [facility] Comment on above: Performed By: #### B SEAM STEAMER, CMP, HSTROPN #### [facility] [address] [place] [address] Dr. Miah Veloz Calcium [Mass/Vol] 8.8 mg/dL Normal 8.5-10.1 [facility] Comment on above: Performed By: #### B SEAM STEAMER, CMP, HSTROPN #### [facility] [address] [place] [address] Dr. Miah Veloz Chloride [Moles/Vol] 105 mmol/L Normal 98-107 [facility] Comment on above: Performed By: #### B SEAM STEAMER, CMP, HSTROPN #### [facility] [address] [place] [address] Dr. Miah Veloz CO2 [Moles/Vol] 27.7 mmol/L Normal 21.0-32.0 [facility] Comment on above: Performed By: #### B SEAM STEAMER, CMP, HSTROPN #### [facility] [address] [place] [address] Dr. Miah Veloz Creatinine [Mass/Vol] 1.17 mg/dL Normal 0.70-1.30 [facility] Comment on above: Performed By: #### B SEAM STEAMER, CMP, HSTROPN #### [facility] [address] [place] [address] Dr. Miah Veloz EGFR-AF IRANIAN >60 Normal >=60 [facility] Comment on above: Performed By: #### B SEAM STEAMER, CMP, HSTROPN #### [facility] [address] [place] [address] Dr. Miah Veloz EGFR-NON AF IRANIAN >60 Normal >=60 [facility] Comment on above: Performed By: #### B SEAM STEAMER, CMP, HSTROPN #### [facility] [address] [place] [address] Dr. Miah Veloz Globulin (S) [Mass/Vol] 3.9 g/dL [facility] Comment on above: Performed By: #### B SEAM STEAMER, CMP, HSTROPN #### [facility] [address] [place] [address] Dr. Miah Veloz Glucose [Mass/Vol] 138 mg/dL Critically high 74-106 [facility] Comment on above: Performed By: #### B SEAM STEAMER, CMP, HSTROPN #### [facility] [address] [place] [address] Dr. Miah Veloz Potassium [Moles/Vol] 4.3 mmol/L Normal 3.5-5.1 [facility] Comment on above: Performed By: #### B SEAM STEAMER, CMP, HSTROPN #### [facility] [address] [place] [address] Dr. Miah Veloz Protein [Mass/Vol] 7.3 g/dL Normal 6.4-8.2 [facility] Comment on above: Performed By: #### B SEAM STEAMER, CMP, HSTROPN #### [facility] [address] [address] [address] Miah Veloz Sodium [Moles/Vol] 142 mmol/L Normal 136-145 [facility] Comment on above: Performed By: #### B SEAM STEAMER, CMP, HSTROPN #### [facility] [address] [address] [address] Miah Veloz Urea nitrogen [Mass/Vol] 25.0 mg/dL Critically high 7.0-18 .0 [facility] Comment on above: Performed By: #### B SEAM STEAMER, CMP, HSTROPN #### [facility] [address] [place] [address] Dr. Miah Veloz Urea nitrogen/Creatinine [Mass ratio] 21.4 mg/mg Normal [facility] Comment on above: Performed By: #### B SEAM STEAMER, CMP, HSTROPN #### [facility] [address] [address] [address] Miah Veloz US BRANDO DOP LEG BILon 022 US BRANDO DOP LEG DELORES EXAMINATION: US BRANDO DOP LEG DELORES HISTORY: Atrial fibrillation ; left knee pain for one month COMPARISON: No relevant comparison available. FINDINGS: REGION: Bilateral lower extremities. THROMBI: None. COMPRESSIBILITY: Normal compressibility. FLOW: Normal waveform and antegrade flow between 5 and 20 cm/s. OTHER: 2.6 x 2.5 x 1.3 cm complex fluid collection posterior to the knee. IMPRESSION: 1. No deep vein thrombus within the right or left lower extremity. 2. Fluid collection posterior to left knee, nonspecific but most likely a Paredes's cyst. Consider MRI of the left knee for evaluation of soft tissues if clinically indicated. Electronically authenticated by: MURPHY GRIFFIN Date: 2022-05-14 16:51 Normal [facility] l CBC AUTO DIFFon 04-28-2022 BASO # 0.1 103/ul Normal 0.0-0.1 [facility] Comment on above: Performed By: #### C BC #### [facility] [address] [place] [address] Dr. Miah Veloz Basophils/100 WBC (Bld) 0.7 % Normal 0.2-2.0 [facility] Comment on above: Performed By: #### C BC #### [facility] [address] [place] [address] Dr. Miah Veloz EO # 0.2 103/ul Normal 0.0-0.7 [facility] Comment on above: Performed By: #### C BC #### [facility] [address] [place] [address] Dr. Miah Veloz Eosinophils/100 WBC (Bld) 2.9 % Normal 0.9-7.0 [facility] Comment on above: Performed By: #### C BC #### [facility] [address] [place] [address] Dr. Miah Veloz Erythrocyte distribution wid th (RBC) [Ratio] 13.2 % Normal 11.0-15.0 [facility] Comment on above: Performed By: #### C BC #### [facility] [address] [place] [address] Dr. Miah Veloz Hematocrit (Bld) [Volume fraction] 36.9 % Critically low 42.0-54.0 [facility] Comment on above: Performed By: #### C BC #### [facility] [address] [place] [address] Dr. Miah Veloz Hemoglobin (Bld) [Mass/Vol] 12.4 g/dL Critically low 14.0 -18.0 [facility] Comment on above: Performed By: #### C BC #### [facility] [address] [place] [address] Dr. Miah Veloz IG # 0.03 10e3/ul Normal 0.00-0.03 [facility] Comment on above: Performed By: #### C BC #### [facility] [address] [place] [address] Dr. Miah Veloz IG % 0.4 % Normal 0.0-0.5 [facility] Comment on above: Performed By: #### C BC #### [facility] [address] [address] [address] Miah Veloz LYMPH # 1.8 103/ul Normal 1.2-3.8 [facility] Comment on above: Performed By: #### C BC #### [facility] [address] [place] [address] Dr. Miah Veloz Lymphocytes/100 WBC (Bld) 23.0 % Normal 20.5-60.0 [facility] Comment on above: Performed By: #### C BC #### [facility] [address] [place] [address] Dr. Miah Veloz MANUAL DIFF REQ NO Normal [facility] Comment on above: Performed By: #### C BC #### [facility] [address] [place] [address] Dr. Miah Veloz MCH (RBC) [Entitic mass] 32.3 pg Normal 25.9-34.0 [facility] Comment on above: Performed By: #### C BC #### [facility] [address] [place] [address] Dr. Miah Veloz MCHC (RBC) [Mass/Vol] 33.6 g/dL Normal 29.9-35.2 [facility] Comment on above: Performed By: #### C BC #### [facility] [address] [place] [address] Dr. Miah Veloz MCV (RBC) [Entitic vol] 96.1 fL Critically high 80.0-94 .0 [facility] Comment on above: Performed By: #### C BC #### [facility] [address] [place] [address] Dr. Miah Veloz MONO # 0.8 103/ul Normal 0.3-0.8 [facility] Comment on above: Performed By: #### C BC #### [facility] [address] [place] [address] Dr. Miah Velzo Monocytes/100 WBC (Bld) 10.2 % Normal 1.7-12.0 [facility] Comment on above: Performed By: #### C BC #### [facility] [address] [address] [address] Miah Veloz NEUT # 4.8 103/ul Normal 1.4-6.5 [facility] Comment on above: Performed By: #### C BC #### [facility] [address] [address] [address] Miah Veloz Neutrophils/100 WBC (Bld) 62.8 % Normal 43.0-75.0 [facility] Comment on above: Performed By: #### C BC #### [facility] [address] [address] [address] Miah Veloz Platelet mean volume (Bld) [ Entitic vol] 10.2 fL Normal 9.5-13.5 [facility] Comment on above: Performed By: #### C BC #### [facility] [address] [address] [address] Miah Veloz PLT 224 103/ul Normal 150-450 [facility]al Comment on above: Performed By: #### C BC #### [facility] [address] [address] [address] Miah Veloz RBC 3.84 106/ul Critically low 4.70-6.10 [facility] Comment on above: Performed By: #### C BC #### [facility] [address] [address] [address] Miah Veloz WBC 7.7 103/ul Normal 4.0-11.0 [facility] Comment on above: Performed By: #### C BC #### [facility] [address] [address] [address] Miah Veloz PROF CHEM 8 (BAS METB)on Anion gap [Moles/Vol] 14.4 mmol/L Normal [facility] Comment on above: Performed By: #### B SEAM STEAMER, CMP, HSTROPN #### [facility] [address] [address] [address] Miah Veloz Calcium [Mass/Vol] 8.3 mg/dL Critically low 8.5-10.1 [facility] Comment on above: Performed By: #### B SEAM STEAMER, CMP, HSTROPN #### [facility] [address] [address] [address] Miah Veloz Chloride [Moles/Vol] 106 mmol/L Normal 98-107 [facility] Comment on above: Performed By: #### B SEAM STEAMER, CMP, HSTROPN #### [facility] [address] [address] [address] Miah Veloz CO2 [Moles/Vol] 27.0 mmol/L Normal 21.0-32.0 [facility] Comment on above: Performed By: #### B SEAM STEAMER, CMP, HSTROPN #### [facility] [address] [place] [address] Dr. Miah Veloz Creatinine [Mass/Vol] 1.12 mg/dL Normal 0.70-1.30 [facility] Comment on above: Performed By: #### B SEAM STEAMER, CMP, HSTROPN #### [facility] [address] [place] [address] Dr. Miah Veloz EGFR-AF IRANIAN >60 Normal >=60 [facility] Comment on above: Performed By: #### B SEAM STEAMER, CMP, HSTROPN #### [facility] [address] [place] [address] Dr. Miah Veloz EGFR-NON AF IRANIAN >60 Normal >=60 [facility] Comment on above: Performed By: #### B SEAM STEAMER, CMP, HSTROPN #### [facility] [address] [place] [address] Dr. Miah Veloz Glucose [Mass/Vol] 103 mg/dL Normal 74-106 [facility] Comment on above: Performed By: #### B SEAM STEAMER, CMP, HSTROPN #### [facility] [address] [address] [address] Miah Veloz Potassium [Moles/Vol] 3.4 mmol/L Critically low 3.5-5.1 [facility] Comment on above: Performed By: #### B SEAM STEAMER, CMP, HSTROPN #### [facility] [address] [place] [address] Dr. Miah Veloz Sodium [Moles/Vol] 144 mmol/L Normal 136-145 [facility] Comment on above: Performed By: #### B SEAM STEAMER, CMP, HSTROPN #### [facility] [address] [place] [address] Dr. Miah Veloz Urea nitrogen [Mass/Vol] 21.0 mg/dL Critically high 7.0-18 .0 [facility] Comment on above: Performed By: #### B SEAM STEAMER, CMP, HSTROPN #### [facility] [address] [place] [address] Dr. Miah Veloz Urea nitrogen/Creatinine [Mass ratio] 18.8 mg/mg Normal [facility] Comment on above: Performed By: #### B SEAM STEAMER, CMP, HSTROPN #### [facility] [address] [place] [address] Dr. Miah Veloz CBC AUTO DIFFon 04-27-2022 BASO # 0.0 103/ul Normal 0.0-0.1 [facility] Comment on above: Performed By: #### B SEAM STEAMER, CMP, HSTROPN #### [facility] [address] [place] [address] Dr. Miah Veloz Basophils/100 WBC (Bld) 0.4 % Normal 0.2-2.0 [facility] Comment on above: Performed By: #### B SEAM STEAMER, CMP, HSTROPN #### [facility] [address] [place] [address] Dr. Miah Veloz EO # 0.2 103/ul Normal 0.0-0.7 [facility] Comment on above: Performed By: #### B SEAM STEAMER, CMP, HSTROPN #### [facility] [address] [place] [address] Dr. Miah Veloz Eosinophils/100 WBC (Bld) 3.2 % Normal 0.9-7.0 [facility] Comment on above: Performed By: #### B SEAM STEAMER, CMP, HSTROPN #### [facility] [address] [place] [address] Dr. Miah Veloz Erythrocyte distribution wid th (RBC) [Ratio] 13.6 % Normal 11.0-15.0 [facility] Comment on above: Performed By: #### B SEAM STEAMER, CMP, HSTROPN #### [facility] [address] [place] [address] Dr. Miah Veloz Hematocrit (Bld) [Volume fraction] 36.7 % Critically low 42.0-54.0 [facility] Comment on above: Performed By: #### B SEAM STEAMER, CMP, HSTROPN #### [facility] [address] [place] [address] Dr. Miah Veloz Hemoglobin (Bld) [Mass/Vol] 12.0 g/dL Critically low 14.0 -18.0 [facility] Comment on above: Performed By: #### B SEAM STEAMER, CMP, HSTROPN #### [facility] [address] [place] [address] Dr. Miah Veloz IG # 0.02 10e3/ul Normal 0.00-0.03 [facility] Comment on above: Performed By: #### B SEAM STEAMER, CMP, HSTROPN #### [facility] [address] [place] [address] Dr. Miah Veloz IG % 0.3 % Normal 0.0-0.5 [facility] Comment on above: Performed By: #### B SEAM STEAMER, CMP, HSTROPN #### [facility] [address] [place] [address] Dr. Miah Veloz LYMPH # 1.6 103/ul Normal 1.2-3.8 [facility] Comment on above: Performed By: #### B SEAM STEAMER, CMP, HSTROPN #### [facility] [address] [place] [address] Dr. Miah Veloz Lymphocytes/100 WBC (Bld) 22.2 % Normal 20.5-60.0 [facility] Comment on above: Performed By: #### B SEAM STEAMER, CMP, HSTROPN #### [facility] [address] [place], [place] [address] Dr. Miah Veloz MANUAL DIFF REQ NO Normal [facility] Comment on above: Performed By: #### B SEAM STEAMER, CMP, HSTROPN #### [facility] [address] [place] [address] Dr. Miah Veloz MCH (RBC) [Entitic mass] 32.3 pg Normal 25.9-34.0 [facility] Comment on above: Performed By: #### B SEAM STEAMER, CMP, HSTROPN #### [facility] [address] [place] [address] Dr. Miah Veloz MCHC (RBC) [Mass/Vol] 32.7 g/dL Normal 29.9-35.2 [facility] Comment on above: Performed By: #### B SEAM STEAMER, CMP, HSTROPN #### [facility] [address] [place] [address] Dr. Miah Veloz MCV (RBC) [Entitic vol] 98.7 fL Critically high 80.0-94 .0 [facility] Comment on above: Performed By: #### B SEAM STEAMER, CMP, HSTROPN #### [facility] [address] [place] [address] Dr. Miah Veloz MONO # 0.7 103/ul Normal 0.3-0.8 [facility] Comment on above: Performed By: #### B SEAM STEAMER, CMP, HSTROPN #### [facility] [address] [place] [address] Dr. Miah Veloz Monocytes/100 WBC (Bld) 9.1 % Normal 1.7-12.0 [facility] Comment on above: Performed By: #### B SEAM STEAMER, CMP, HSTROPN #### [facility] [address] [place] [address] Dr. Miah Veloz NEUT # 4.6 103/ul Normal 1.4-6.5 [facility] Comment on above: Performed By: #### B SEAM STEAMER, CMP, HSTROPN #### [facility] [address] [place] [address] Dr. Miah Veloz Neutrophils/100 WBC (Bld) 64.8 % Normal 43.0-75.0 [facility] Comment on above: Performed By: #### B SEAM STEAMER, CMP, HSTROPN #### [facility] [address] [place] [address] Dr. Miah Veloz Platelet mean volume (Bld) [ Entitic vol] 10.2 fL Normal 9.5-13.5 [facility] Comment on above: Performed By: #### B SEAM STEAMER, CMP, HSTROPN #### [facility] [address] [place] [address] Dr. Miah Veloz PLT 200 103/ul Normal 150-450 [facility] Comment on above: Performed By: #### B SEAM STEAMER, CMP, HSTROPN #### [facility] [address] [place] [address] Dr. Miah Veloz RBC 3.72 106/ul Critically low 4.70-6.10 [facility] Comment on above: Performed By: #### B SEAM STEAMER, CMP, HSTROPN #### [facility] [address] [place] [address] Dr. Miah Veloz WBC 7.1 103/ul Normal 4.0-11.0 [facility] Comment on above: Performed By: #### B SEAM STEAMER, CMP, HSTROPN #### [facility] [address] [place] [address] Dr. Miah Veloz ECHOCARDIO M/2D COMPLETEon 0 04-27-2022 ECHOCARDIO M/2D COMPLETE Patient: GARRY STREETER Exam Date: 04/27/2022 : 1955 Gender:M Ordering : DR ANDREI ORONA . Admission #: [id number] Family : Order #: [id number] CLICK HERE TO VIEW EXAM ECHOCARDIOGRAM REPORT PROCEDURE: CARDIO PULMONARY ECHOCARDIO M/2D COMP INDICATIONS: Atrial fibrillation, pulmonary edema, shortness of breath COMPARISON: None. DESCRIPTION: COMPLETE ECHOCARDIOGRAM Real-time transthoracic echocardiography with 2D, M-mode, spectral and color flow Doppler performed. QUALITY: Technical quality was good. LEFT VENTRICLE: Normal chamber size. Borderline left ventricular hypertrophy. Left ventricular systolic function is difficult to assess due to rhythm but appears to be mildly to moderately reduced. LV EF: Mildly to moderately reduced left ventricular ejection fraction, (40%). DIASTOLIC: Not adequately assessed due to heart rhythm. ATRIAL SEPTUM: Visually appears intact. LEFT ATRIUM: Mild dilatation. RIGHT ATRIUM: Moderate dilatation. RIGHT VENTRICLE: Normal chamber size. Preserved right ventricular systolic function. TRICUSPID VALVE: Normal mobility and thickness. No stenosis with trivial regurgitation. Doppler studies reveal mildly (35-45) elevated right sided pressures. RVSP 44 mmHg MITRAL VALVE: Normal mobility and thickness. No evidence of mitral valve stenosis. There is no mitral annular calcification. Mild mitral regurgitation. AORTIC VALVE: Normal trileaflet appearance. No visible sclerosis. Normal leaflet mobility. No evidence of aortic valve stenosis. Trivial aortic regurgitation. AORTIC ROOT: Normal diameter and appearance. PULMONIC VALVE: Normal thickness and mobility. No stenosis. No regurgitation. PERICARDIUM: No evidence of pericardial effusion. IVC: Dilated IVC (2.47 cm), with no collapse. PLEURA: CONCLUSION: 1. Left ventricular systolic function is difficult to assess due to rhythm but appears to be mildly to moderately reduced. LVEF is 40%. 2. Mild mitral regurgitation. 3. Mildly elevated right-sided pressures. RVSP is 44 mmHg. 4. No pericardial effusion. Adult Echocardiography Procedure Report Left Ventricle LVEDD (3.7 - 5.6 cm): 5.59 cm LVESD (2.2 - 4.0 cm): 4.21 cm LVIVS thickness (0.6 - 1.2 cm): 1.14 cm LVPW thickness (0.5 - 1.0 cm): 9.13 mm LVOT Area (cm2): 4.91 cm2 LVOT Diameter 2.50 cm Left Ventricular Ejection Fraction: 40 % Left Atrium LA Volume Index (2D A2C): 35.50 ml/m2 Left Atrium Systolic Dimension: 4.60 cm Left Atrium Systolic Area(A2C): 24.80 cm2 Left Atrium Systolic Area(A4C): 22.40 cm2 Left Atrium Systolic Volume(A2C): 93703 mm3 Left Atrium Systolic Volume(A4C): 51541 mm3 Mitral Valve Mitral Valve E-Wave Peak Velocity: 76.50 cm/s Mitral Valve E-Wave Peak Velocity: 99.20 cm/s Right Ventricle Aorta AO Root Diam: 3.60 cm Aortic Valve AoV Area (Peak Jose): 2.87 cm2 Peak Velocity(Antegrade Flow): 152.00 cm/s Peak Gradient(Antegrade Flow): 9 mm[Hg] Tricuspid Valve Peak Velocity (Regurgitant Flow): 232.00 cm/s Pulmonic Valve Peak Velocity: 99.60 cm/s Peak Gradient: 4 mm[Hg] Right Atrium Dictated by: Zaki Palacios M.D. on 04/27/2022 at 16:54 Approved by: Zaki Palacios M.D. on 04/27/2022 at 16:58 Normal [facility] PROF CHEM 8 (BAS METB)on Anion gap [Moles/Vol] 13.3 mmol/L Normal [facility] Comment on above: Performed By: #### B MP #### [facility] [address] [place] [address] Dr. Miah Veloz Calcium [Mass/Vol] 8.2 mg/dL Critically low 8.5-10.1 [facility] Comment on above: Performed By: #### B MP #### [facility] [address] [place] [address] Dr. Miah Veloz Chloride [Moles/Vol] 107 mmol/L Normal 98-107 [facility] Comment on above: Performed By: #### B MP #### [facility] [address] [place] [address] Dr. Miah Veloz CO2 [Moles/Vol] 27.5 mmol/L Normal 21.0-32.0 [facility] Comment on above: Performed By: #### B MP #### [facility] [address] [place] [address] Dr. Miah Veloz Creatinine [Mass/Vol] 0.97 mg/dL Normal 0.70-1.30 [facility] Comment on above: Performed By: #### B MP #### [facility] [address] [place] [address] Dr. Miah Veloz EGFR-AF IRANIAN >60 Normal >=60 [facility] Comment on above: Performed By: #### B MP #### [facility] [address] [place] [address] Dr. Miah Veloz EGFR-NON AF IRANIAN >60 Normal >=60 [facility] Comment on above: Performed By: #### B MP #### [facility] [address] [place] [address] Dr. Miah Veloz Glucose [Mass/Vol] 102 mg/dL Normal 74-106 [facility] Comment on above: Performed By: #### B MP #### [facility] [address] [address] [address] Miah Veloz Potassium [Moles/Vol] 3.8 mmol/L Normal 3.5-5.1 [facility] Comment on above: Performed By: #### B MP #### [facility] [address] [place] [address] Dr. Miah Veloz Sodium [Moles/Vol] 144 mmol/L Normal 136-145 [facility] Comment on above: Performed By: #### B MP #### [facility] [address] [place] [address] Dr. Miah Veloz Urea nitrogen [Mass/Vol] 17.0 mg/dL Normal 7.0-18.0 [facility] Comment on above: Performed By: #### B MP #### [facility] [address] [place] [address] Dr. Miah Veloz Urea nitrogen/Creatinine [Mass ratio] 17.5 mg/mg Normal [facility] Comment on above: Performed By: #### B MP #### [facility] [address] [place] [address] Dr. Miah Veloz BNPon 04-26-2022 Natriuretic peptide B (Bld) [Mass/Vol] 1105.0 pg/mL Critically high <=900.0 [facility] Comment on above: Performed By: #### B SEAM STEAMER, CMP, HSTROPN #### [facility] [address] [place] [address] Dr. Miah Veloz CBC AUTO DIFFon 04-26-2022 BASO # 0.0 103/ul Normal 0.0-0.1 [facility] Comment on above: Performed By: #### C BC #### [facility] [address] [place] [address] Dr. Miah Veloz Basophils/100 WBC (Bld) 0.6 % Normal 0.2-2.0 [facility] Comment on above: Performed By: #### C BC #### [facility] [address] [place] [address] Dr. Miah Veloz EO # 0.2 103/ul Normal 0.0-0.7 [facility] Comment on above: Performed By: #### C BC #### [facility] [address] [place] [address] Dr. Miah Veloz Eosinophils/100 WBC (Bld) 2.1 % Normal 0.9-7.0 [facility] Comment on above: Performed By: #### C BC #### [facility] [address] [place] [address] Dr. Miah Veloz Erythrocyte distribution wid th (RBC) [Ratio] 13.7 % Normal 11.0-15.0 [facility] Comment on above: Performed By: #### C BC #### [facility] [address] [place] [address] Dr. Miah Veloz Hematocrit (Bld) [Volume fraction] 39.3 % Critically low 42.0-54.0 [facility] Comment on above: Performed By: #### C BC #### [facility] [address] [place] [address] Dr. Miah Veloz Hemoglobin (Bld) [Mass/Vol] 13.0 g/dL Critically low 14.0 -18.0 [facility] Comment on above: Performed By: #### C BC #### [facility] [address] [place] [address] Dr. Miah Veloz IG # 0.02 10e3/ul Normal 0.00-0.03 [facility] Comment on above: Performed By: #### C BC #### [facility] [address] [place] [address] Dr. Miah Veloz IG % 0.3 % Normal 0.0-0.5 [facility] Comment on above: Performed By: #### C BC #### [facility] [address] [address] [address] Miha Veloz LYMPH # 1.1 103/ul Critically low 1.2-3.[address] [facility] Comment on above: Performed By: #### C BC #### [facility] [address] [address] [address] Miah Veloz Lymphocytes/100 WBC (Bld) 16.1 % Critically low 20.5-6 0.0 [facility] Comment on above: Performed By: #### C BC #### [facility] [address] [address] [address] Miah Veloz MANUAL DIFF REQ NO Normal [facility] Comment on above: Performed By: #### C BC #### [facility] [address] [place] [address] Dr. Miah Veloz MCH (RBC) [Entitic mass] 32.7 pg Normal 25.9-34.0 [facility] Comment on above: Performed By: #### C BC #### [facility] [address] [address] [address] Miah Veloz MCHC (RBC) [Mass/Vol] 33.1 g/dL Normal 29.9-35.2 [facility] Comment on above: Performed By: #### C BC #### [facility] [address] [place] [address] Dr. Miah Veloz MCV (RBC) [Entitic vol] 98.7 fL Critically high 80.0-94 .0 [facility] Comment on above: Performed By: #### C BC #### [facility] [address] [address] [address] Miah Veloz MONO # 0.5 103/ul Normal 0.3-0.8 [facility] Comment on above: Performed By: #### C BC #### [facility] [address] [address] [address] Miah Veloz Monocytes/100 WBC (Bld) 7.6 % Normal 1.7-12.0 [facility] Comment on above: Performed By: #### C BC #### [facility] [address] [place] [address] Dr. Miah Veloz NEUT # 5.2 103/ul Normal 1.4-6.5 [facility] Comment on above: Performed By: #### C BC #### [facility] [address] [address] [address] Miah Veloz Neutrophils/100 WBC (Bld) 73.3 % Normal 43.0-75.0 [facility] Comment on above: Performed By: #### C BC #### [facility] [address] [address] [address] Miah Veloz Platelet mean volume (Bld) [ Entitic vol] 10.7 fL Normal 9.5-13.5 [facility] Comment on above: Performed By: #### C BC #### [facility] [address] [place] [address] Dr. Miah Veloz PLT 200 103/ul Normal 150-450 [facility] Comment on above: Performed By: #### C BC #### [facility] [address] [place] [address] Dr. Miah Veloz RBC 3.98 106/ul Critically low 4.70-6.10 [facility] Comment on above: Performed By: #### C BC #### [facility] [address] [place] [address] Dr. Miah Veloz WBC 7.1 103/ul Normal 4.0-11.0 [facility] Comment on above: Performed By: #### C BC #### [facility] [address] [place] [address] Dr. Miah Veloz CTA CHEST WO W CONon 022 CTA CHEST WO W CON EXAMINATION: CTA SANDRO ST WO W CON HISTORY: SHORTNESS OF BREATH COMPARISON: No relevant comparison available. TECHNIQUE: Axial, Coronal, and Sagittal images were created without and with IV contrast. Dose reduction techniques were achieved by using automated exposure control and/or adjustment of mA and/or kV according to patient size and/or use of iterative reconstruction technique. FINDINGS: LUNGS: Mild scattered groundglass opacities with a basilar and peripheral predominance. No focal infiltrate. Moderate diffuse peribronchial thickening. PLEURA: 4.3 cm right and 2.7 cm left pleural effusions without associated atelectasis VASCULATURE: Normal postcontrast opacification of the central pulmonary arterial tree FELIPA: Normal sized bilateral hilar lymph nodes MEDIASTINUM: Increased number of normal and borderline enlarged lymph nodes the largest is subcarinal measuring 3.3 x 2.2 cm CARDIAC: No cardiomegaly. No pericardial effusion. Mild coronary atherosclerosis. AORTA: No aneurysm or dissection. CHEST WALL: No mass or axillary adenopathy. BONES: No bone lesion or fracture. LIMITED ABDOMEN: Bilateral renal cortical hypodensities the larger lesions are likely cysts OTHER: Negative. IMPRESSION: No central pulmonary thromboembolic disease Scattered basilar and peripheral groundglass opacities with bilateral pleural effusions and peribronchial thickening. Consider pulmonary edema Electronically authenticated by: NICK CABRALES Date: 2022-04-26 10:50 Normal [facility] Covid-19 PCR (CVDTB)on SARS-CoV-2 (COVID-19) RNA GÓMEZ+probe Ql (Unsp spec) Not detected Normal NOT DETECTED [facility] Comment on above: Result Comment: When diagnostic testing is negative, the possibility of a false negative should be considered in the context of a patient's recent exposures and the presence of clinical signs and symptoms consistent with SARS-CoV-2. This test is not yet approved or cleared by the [place] FDA. When there are no FDA-approved or cleared tests available, and other criteria are met, FDA can make tests available under an emergency access mechanism called an Emergency Use Authorization (EUA). The EUA for this test is supported by the [place] of Health and Human Service's declaration that circumstances exist to justify the emergency use of in vitro diagnostics for the detection and/or diagnosis of the virus that causes COVID-19. This EUA will remain in effect for the duration of the COVID-19 declaration justifying emergency of IVDs, unless it is terminated or revoked by the FDA (after which the test may no longer be used). Performed By: #### B SEAM STEAMER, CMP, HSTROPN #### [facility] [address] [place] [address] Dr. Miah Veloz PROF 14(COMP METB)on 022 Albumin [Mass/Vol] 3.1 g/dL Critically low 3.4-5.0 [facility] Comment on above: Performed By: #### B SEAM STEAMER, CMP, HSTROPN #### [facility] [address] [place] [address] Dr. Miah Veloz Albumin/Globulin [Mass ratio] 0.9 {ratio} Normal [facility] Comment on above: Performed By: #### B SEAM STEAMER, CMP, HSTROPN #### [facility] [address] [place] [address] Dr. Miah Veloz ALP [Catalytic activity/Vol] 54 U/L Normal 46-116 [facility] Comment on above: Performed By: #### B SEAM STEAMER, CMP, HSTROPN #### [facility] [address] [place] [address] Dr. Miah Veloz ALT [Catalytic activity/Vol] 63 U/L Normal 16-63 [facility] Comment on above: Performed By: #### B SEAM STEAMER, CMP, HSTROPN #### [facility] [address] [place] [address] Dr. Miah Veloz Anion gap [Moles/Vol] 13.9 mmol/L Normal [facility] Comment on above: Performed By: #### B SEAM STEAMER, CMP, HSTROPN #### [facility] [address] [place] [address] Dr. Miah Veloz AST [Catalytic activity/Vol] 32 U/L Normal 15-37 [facility] Comment on above: Performed By: #### B SEAM STEAMER, CMP, HSTROPN #### [facility] [address] [place] [address] Dr. Miah Veloz Calcium [Mass/Vol] 8.7 mg/dL Normal 8.5-10.1 [facility] Comment on above: Performed By: #### B SEAM STEAMER, CMP, HSTROPN #### [facility] [address] [place] [address] Dr. Miah Veloz Chloride [Moles/Vol] 108 mmol/L Critically high 98-107 [facility] Comment on above: Performed By: #### B SEAM STEAMER, CMP, HSTROPN #### [facility] [address] [place] [address] Dr. Miah Veloz CO2 [Moles/Vol] 24.3 mmol/L Normal 21.0-32.0 [facility] Comment on above: Performed By: #### B SEAM STEAMER, CMP, HSTROPN #### [facility] [address] [place] [address] Dr. Miah Veloz Creatinine [Mass/Vol] 0.90 mg/dL Normal 0.70-1.30 [facility] Comment on above: Performed By: #### B SEAM STEAMER, CMP, HSTROPN #### [facility] [address] [place] [address] Dr. Miah Veloz EGFR-AF IRANIAN >60 Normal >=60 [facility] Comment on above: Performed By: #### B SEAM STEAMER, CMP, HSTROPN #### [facility] [address] [place] [address] Dr. Miah Veloz EGFR-NON AF IRANIAN >60 Normal >=60 [facility] Comment on above: Performed By: #### B SEAM STEAMER, CMP, HSTROPN #### [facility] [address] [place] [address] Dr. Miah Veloz Globulin (S) [Mass/Vol] 3.6 g/dL [facility] Comment on above: Performed By: #### B SEAM STEAMER, CMP, HSTROPN #### [facility] [address] [place] [address] Dr. Miah Veloz Glucose [Mass/Vol] 146 mg/dL Critically high 74-106 [facility] Comment on above: Performed By: #### B SEAM STEAMER, CMP, HSTROPN #### [facility] [address] [place] [address] Dr. Miah Veloz Potassium [Moles/Vol] 4.2 mmol/L Normal 3.5-5.1 [facility] Comment on above: Performed By: #### B SEAM STEAMER, CMP, HSTROPN #### [facility] [address] [place] [address] Dr. Miah Veloz Protein [Mass/Vol] 6.7 g/dL Normal 6.4-8.2 [facility] Comment on above: Performed By: #### B SEAM STEAMER, CMP, HSTROPN #### [facility] [address] [place] [address] Dr. Miah Veloz Sodium [Moles/Vol] 142 mmol/L Normal 136-145 [facility] [place] [facility] Comment on above: Performed By: #### B SEAM STEAMER, CMP, HSTROPN #### [facility] [address] [place] [address] Dr. Miah Veloz Urea nitrogen [Mass/Vol] 19.0 mg/dL Critically high 7.0-18 .0 [facility] Comment on above: Performed By: #### B SEAM STEAMER, CMP, HSTROPN #### [facility] [address] [place] [address] Dr. Miah Veloz Urea nitrogen/Creatinine [Mass ratio] 21.1 mg/mg Normal [facility] Comment on above: Performed By: #### B SEAM STEAMER, CMP, HSTROPN #### [facility] [address] [place] [address] Dr. Miah Veloz PROTIMEon 04-26-2022 INR Coag (PPP) [Relative time] 1.20 {INR} Normal [facility] Comment on above: Performed By: #### B SEAM STEAMER, CMP, HSTROPN #### [facility] [address] [place] [address] Dr. Miah Veloz INR GUIDELINES SEE BELOW Normal [facility] Comment on above: Result Comment: JENNIFER RED INR: 2.0 - 3.0 CONDITIONS NOT LISTED BELOW 2.5 - 3.5 FOR PROSTHETIC HEART VALVE REPLACEMENT 2.5 - 3.5 RECURRENT THROMBOSIS Performed By: #### B SEAM STEAMER, CMP, HSTROPN #### [facility] [address] [place] [address] Dr. Miah Veloz PT Coag (PPP) [Time] 12.8 s Critically high 9.0-11.6 [facility] Comment on above: Performed By: #### B SEAM STEAMER, CMP, HSTROPN #### [facility] [address] [place], [place] [address] Dr. Miah Veloz PTTon 04-26-2022 aPTT Coag (Bld) [Time] 28.5 s Normal 22.3-36.2 [facility] Comment on above: Performed By: #### B SEAM STEAMER, CMP, HSTROPN #### [facility] [address] [place], [place] [address] Dr. Miah Veloz TROPONIN, HIGH SENSITIVITYon 04-26-2022 HSTROP 24.7 pg/mL Normal 4.0-76.1 [facility] Comment on above: Result Comment: CUT- OFF POINTS HAVE BEEN ESTABLISHED BASED ON THE FOURTH UNIVERSAL DEFINITIONS OF MYOCARDIAL INFARCTION. THE UPPER REFERENCE LIMIT (URL) OF TROPONIN, DEFINED THE 99TH PERCENTILE OF cTnI DISTRIBUTION IN A REFERENCE POPULATION, HAS BEEN CONFIRMED THE DECISION THRESHOLD FOR CO DIAGNOSIS. Performed By: #### B SEAM STEAMER, CMP, HSTROPN #### [facility] [address] [place] [address] [address] Miah Veloz Encounters Encounter Date Encounter Type Care Provider Facility Start: 10-22-2023 End: 10-22-2023 ambulatory MEET [facility] Start: 08-30-2023 End: 08-30-2023 ambulatory MARTIN SPENCER [facility] Start: 03-22-2023 End: 03-22-2023 ambulatory TACHO [facility] Start: 03-01-2023 End: 03-02-2023 ambulatory SARAH RAMIREZ Facility:[facility] Start: 02-03-2023 End: 02-03-2023 ambulatory SARAH RAMIREZ [facility] Start: 01-15-2023 End: 01-16-2023 ambulatory LUZMA PHAM Facility:[facility] Start: 10-31-2022 Encounter for preprocedural laboratory examination DR TAVIA [place] . [facility] Start: 10-28-2022 End: 10-29-2022 ambulatory TAVIA [place] Facility:[facility] Start: 10-28-2022 End: 10-28-[address] [place] . Facility:[facility] Start: 10-24-2022 End: 10-25-[address] [place] . Facility:[facility] Start: 10-24-2022 End: 10-25-2022 Encounter for preprocedural laboratory examination DR TAVIA [place] . Facility:[facility] Start: 08-12-2022 Encounter for other preprocedural examination TACHO HOLLAND [facility] Start: 08-10-2022 End: 08-11-2022 ambulatory LEANDROBARPatience PRADEEPSYLVIABARBARA Facility:[facility] Start: 08-10-2022 End: 08-11-2022 Encounter for other preprocedural examination TACHO HOLLAND Facility:[facility] Start: 08-05-2022 End: 08-06-2022 ambulatory TACHO HOLLAND Facility:[facility] Start: 05-14-2022 End: 05-15-[address] DOCTOR FREED Facility:[facility] Start: 04-26-2022 End: 04-28-2022 Evaluation and management of inpatient [facility] Facility:[facility] Procedures Date Procedure Procedure Detail Performing Clinician Start: 03-22-2023 Follow-up visit Follow-up TACHO HOLLAND Payers Date Payer Category Payer Medicare [id number] 1961 Unknown [id number] 1955 Unknown [id number] .16.84 [id number] 1955 Unknown [id number] .. [id number] 1955 Unknown [id number] ..[id number] 1955 Unknown [id number] ..[id number] 1953 Unknown [id number] ..[id number] 1953 Unknown [id number] ..[id number] 1953 Unknown [id number] 2..84 [id number] 1955 Unknown [id number] 2.16.84 [id number] 1955 Unknown [id number] 2.16.84 [id number] Clinical Notes 04-26-2022 to 10-22-2023 Note Date & Type Note Facility 10-22-2023 Note Patient here for [facility] for afib w/ RVR. He was sent to the ED when he came for his echo, but HR was in the 150's. Echo was not done while inpatient. Denies syncope and bleeding on Eliquis. Does feel palpitations when HR is elevated. Gets lightheaded upon standing up. Patient thinks the pain in his left foot is from elevated HR and BP. Review of Systems Cardiovascular: Positive for dyspnea on exertion, leg swelling (LLE, gout) and palpitations. Respiratory: Positive for cough and wheezing. Skin: Positive for itching. Musculoskeletal: Positive for gout. Gastrointestinal: Positive for diarrhea. Neurological: Positive for light-headedness (upon standing up). All other systems reviewed and are negative. [facility] 08-30-2023 Note [facility] CARDIOLOGY PROGR ESS NOTE HPI: Garry Streeter is a 68 y.o. male past medical history of heart failure improved ejection fraction, paroxysmal atrial fibrillation, hypertension, and valvular heart disease seen in follow-up. Update: 03/22/2023 Pt is here for med check F/U for [facility] pt states he stopped taking some of his meds due to having Diarrhea more then 3 times a day pt also stated he was having problems walking due to gout. Patient adamantly denies any cardiac complaints or concerns. Patient denies any chest pain or shortness of breath. Patient denies any lower extremity edema, orthopnea, or proximal nocturnal dyspnea. No near-syncope or syncope. No dizziness or lightheadedness. Patient tells me he is taking all of his medications as prescribed. He is adamant about this. He said he can be forgetful of the names, but he is sure he is taking everything that is prescribed for him. Reviewed most recent echo performed after last appointment. EF has recovered to 55 to 60% Update: 08/30/2023 Has been doing well Does not monitor blood pressure at home He has been having a lot of phlegm with coughing ongoing for about a year Sleeping in a different room from his due to cough Has difficulty laying flat at night Denies chest pain, LE edema, or palpitations Review of Systems 10 point ROS is performed and is negative unless otherwise specified in HPI Visit Vitals BP (!) 171/96 (BP Location: Right arm, Patient Position: Sitting) Pulse 57 Ht 1.829 m (6') Wt 96.2 kg (212 lb) SpO2 96% BMI 28.75 kg/m??? Smoking Status Former BSA 2.21 m??? Allergies Allergen Reactions Tylenol [Acetaminophen] Other Skin bumps Medications: Current Outpatient Medications on File Prior to Visit Medication Sig Dispense Refill apixaban (Eliquis) 5 mg tablet Take 1 tablet (5 mg) by mouth in the morning and at bedtime. 60 tablet 11 fexofenadine HCl (MUCINEX ALLERGY ORAL) Take by mouth. metoprolol succinate XL (Toprol-XL) 100 mg 24 hr tablet Take 2 tablets (200 mg) by mouth in the morning and at bedtime. 180 tablet 3 spironolactone (Aldactone) 25 mg tablet Take 1 tablet by mouth in the morning. [DISCONTINUED] lisinopril 20 mg tablet Take 20 mg by mouth in the morning. [DISCONTINUED] furosemide (Lasix) 20 mg tablet Take 1 tablet by mouth in the morning. [DISCONTINUED] sacubitriL-valsartan (Entresto) 24-26 mg tablet Take 1 tablet by mouth in the morning and at bedtime. (Patient not taking: Reported on 08/30/2023) 60 tablet 11 No current facility-administered medications on file prior to visit. Physical Exam: Constitutional: Appearance: Normal appearance. Without apparent distress HENT: Head: Normocephalic and atraumatic. Nose: Nose normal. Mouth/Throat: Mouth: Mucous membranes are moist. Eyes: Extraocular Movements: Extraocular movements intact. Conjunctiva/sclera: Conjunctivae normal. Neck: Vascular: No JVD. Cardiovascular: Rate and Rhythm: Normal rate and regular rhythm. Pulses: . Heart sounds: Normal heart sounds, S1 normal and S2 normal. Pulmonary: Effort: Pulmonary effort is normal. Breath sounds: Scattered expiratory wheezes throughout Abdominal: General: Bowel sounds are normal. Palpations: Abdomen is soft. Musculoskeletal: General: Normal range of motion. Cervical back: Normal range of motion. Right lower leg: No edema. Left lower leg: No edema. Skin: General: Skin is warm and dry. Capillary Refill: Capillary refill takes less than 2 seconds. Neurological: General: No focal deficit present. Mental Status: alert and oriented to person, place, and time. Psychiatric: Mood and Affect: Mood normal. Behavior: Behavior normal. Thought Content: Thought content normal. Judgment: Judgment normal. Labs: States he just had labs drawn with his PCP 01/15/2023- CBC stable Renal function normal BUN 15, creatinine 0.88 Potassium normal 4.5 Liver function normal proBNP was normal at 20 Last lab values have been reviewed CV Testing: Echo: 03/01/2023 Global left ventricular systolic function is normal; visually estimated ejection fraction is 55 to 60%. No significant wall motion abnormalities. Mild left ventricular hypertrophy. Grade 2 diastolic dysfunction. Biatrial enlargement. Right ventricle is normal in size and systolic function. Mild tricuspid regurgitation. Mild elevated right ventricular systolic pressure. Mild mitral aortic and pulmonic regurgitation. Chest x-ray 01/15/2023- Cardiac Cath Report 08/12/2022 Performing Physicians: -Tacho Holland MD Procedures Performed: -Bilateral selective coronary angiography -Limited right radial and right subclavian angiography Final Impressions: -Patent coronary arteries Recommendations: -Optimization of medical management -Aggressive risk factor modification -Proceed with YOVANY/Cardioversion -Follow up with Cardiology as scheduled YOVANY/CV Conclusions: Biphasic cardio (more content not included)... [facility] 08-30-2023 Note Patient here for 6 m o follow up chronic systolic heart failure, PAF, and hypertension. C/o itchy spots on his skin and thinks it's his medications. C/o coughing and wheezing since being on lisinopril. He was on Entresto prior. Denies chest pain, SOB, palpitations, and bleeding on Eliquis. Review of Systems Respiratory: Positive for cough and wheezing. Skin: Positive for itching. Gastrointestinal: Positive for diarrhea. All other systems reviewed and are negative. [facility] 03-22-2023 Note [facility] CARDIOLOGY PROGR ESS NOTE HPI: Garry Streeter is a 68 y.o. male here for Follow-up (f/u echo) Known h/o Chronic systolic heart failure, Paroxysmal atrial fib Pt is here for med check F/U for [facility] pt states he stopped taking some of his meds due to having Diarrhea more then 3 times a day pt also stated he was having problems walking due to gout. Patient adamantly denies any cardiac complaints or concerns. Patient denies any chest pain or shortness of breath. Patient denies any lower extremity edema, orthopnea, or proximal nocturnal dyspnea. No near-syncope or syncope. No dizziness or lightheadedness. Patient tells me he is taking all of his medications as prescribed. He is adamant about this. He said he can be forgetful of the names, but he is sure he is taking everything that is prescribed for him. Reviewed most recent echo performed after last appointment. EF has recovered to 55 to 60% Review of Systems 10 point ROS is performed and is negative unless otherwise specified in HPI Visit Vitals BP 147/90 (BP Location: Left arm, Patient Position: Sitting, BP Cuff Size: Adult) Pulse 60 Ht 1.829 m (6') Wt 101 kg (221 lb 9.6 oz) SpO2 95% BMI 30.05 kg/m??? Smoking Status Former BSA 2.27 m??? Allergies Allergen Reactions Tylenol [Acetaminophen] Other Skin bumps Medications: Current Outpatient Medications on File Prior to Visit Medication Sig Dispense Refill apixaban (Eliquis) 5 mg tablet Take 1 tablet by mouth in the morning and at bedtime. furosemide (Lasix) 20 mg tablet Take 1 tablet by mouth in the morning. lisinopril 20 mg tablet Take 20 mg by mouth in the morning. spironolactone (Aldactone) 25 mg tablet Take 1 tablet by mouth in the morning. sacubitriL-valsartan (Entresto) 24-26 mg tablet Take 1 tablet by mouth in the morning and at bedtime. 60 tablet 11 No current facility-administered medications on file prior to visit. Physical Exam: Constitutional: Appearance: Normal appearance. Without apparent distress HENT: Head: Normocephalic and atraumatic. Nose: Nose normal. Mouth/Throat: Mouth: Mucous membranes are moist. Eyes: Extraocular Movements: Extraocular movements intact. Conjunctiva/sclera: Conjunctivae normal. Neck: Vascular: No JVD. Cardiovascular: Rate and Rhythm: Normal rate and regular rhythm. Pulses: Dorsalis pedis pulses are 3 on the right side and 3on the left side. Posterior tibial pulses are 3 on the right side and 3 on the left side. Heart sounds: Normal heart sounds, S1 normal and S2 normal. Pulmonary: Effort: Pulmonary effort is normal. Breath sounds: Scattered wheezes throughout Abdominal: General: Bowel sounds are normal. Palpations: Abdomen is soft. Musculoskeletal: General: Normal range of motion. Cervical back: Normal range of motion. Right lower leg: No edema. Left lower leg: No edema. Skin: General: Skin is warm and dry. Capillary Refill: Capillary refill takes less than 2 seconds. Neurological: General: No focal deficit present. Mental Status: alert and oriented to person, place, and time. Psychiatric: Mood and Affect: Mood normal. Behavior: Behavior normal. Thought Content: Thought content normal. Judgment: Judgment normal. Labs: States he just had labs drawn with his PCP 01/15/2023- CBC stable Renal function normal BUN 15, creatinine 0.88 Potassium normal 4.5 Liver function normal proBNP was normal at 20 Last lab values have been reviewed CV Testing: Chest x-ray 01/15/2023- Cardiac Cath Report 08/12/2022 Performing Physicians: -Tacho Holland MD Procedures Performed: -Bilateral selective coronary angiography -Limited right radial and right subclavian angiography Final Impressions: -Patent coronary arteries Recommendations: -Optimization of medical management -Aggressive risk factor modification -Proceed with YOVANY/Cardioversion -Follow up with Cardiology as scheduled YOVANY/CV Conclusions: Biphasic cardioversion was performed at 360 J, the patient was converted to sinus rhythm Valvular Assessment LVOT 0.7 - 1.1 m/sec Aortic Valve 1.0 - 1.7 m/sec Mitral Valve 0.6 - 1.3 m/sec Tricuspid Valve 0.3 - 0.7 m/sec Pulmonic Valve 0.6 - 0.9 m/sec Regurgitation Mild MildMod Trivial No Findings Left Ventricle: The left ventricle appears enlarged. Global left ventricular systolic function is severely reduced. Left ventricular wall thickness is normal. Right Ventricle: The right ventricle is normal in size. Right ventricular systolic function appears reduced. Left Atrium: The left atrium appears enlarged. Left Atrium Appendage: Normal left atrial appendage, no thrombus seen. IAS: No intracardiac shunt by Doppler color flow. Right Atrium: The right atrium appears enlarged. Chiari's network seen in right atrium. Mitral Valve: The mitral valve is normal in mobility and thickness. Mild to moderate mitral regurgitation. Aortic Valve: The aortic valve is normal. Mild aor (more content not included)... [facility] 02-03-2023 Note No edema today [facility] 02-03-2023 Note Stable [facility] 02-03-2023 Note EKG today-Sinus manny ycardia with PACs/PVCs- And artifact, Otherwise normal EKG He is adamant he is still taking Eliquis anticoagulation, Pharmacy denies that he is filled Eliquis or metoprolol in the last 6 months. Discussed with patient risk for stroke with paroxysmal atrial fib- He states he has cardia Monitor at home and he has not had any A-fib [facility] 02-03-2023 Note [facility] I-II Currently appears euvolemic, Without exacerbation Pharmacy states only medication he is taking is lisinopril Patient does not seem to understand previous diagnosis of systolic heart failure and reduced ejection fraction. This time I am unsure which of the medications caused his diarrhea as a side effect, Therefore, for now we will get echocardiogram to assess cardiac function and ejection fraction. We had discussion about uncontrolled hypertension, systolic heart failure, reduced ejection fraction and I am not sure that he will take any medications that I prescribed today because he pretty much denies any of this Previous history And is only concerned about diarrhea and being able to fish this coming summer. Provided with heart failure booklet Return to clinic with Dr. Holland for further conversation and medication management Staff To obtain recent labs from PCP [facility] 02-03-2023 Note [facility] CARDIOLOGY PROGR ESS NOTE HPI: Garry Streeter is a 67 y.o. male here for Med Refill, Atrial Fibrillation, and Congestive Heart Failure Known h/o Chronic systolic heart failure, Paroxysmal atrial fib, edema, and noncompliance to med regimen. Pt is here for med check F[facility] pt states he stopped taking some of his meds due to having Diarrhea more then 3 times a day pt also stated he was having problems walking due to gout. Patient reports last summer after starting heart failure regimenHe was having frequent diarrhea therefore he stopped almost all of his medicines. Denied any hospitalizations since last visit. Does admit shortness of breath and lung congestion at night. Denies shortness of breath with exertion, chest pain, palpitations, or bleeding tendencies. States he has continued to take Eliquis anticoagulation- And states he still takes 3 medications a day but he cannot remember what they are at this time. Staff called pharmacy- [facility] and patient states this is his only pharmacy they state the only thing he has filled in the last 6 months is lisinopril. Review of Systems Gastrointestinal: Positive for diarrhea. All other systems reviewed and are negative. Visit Vitals BP 153/76 (BP Location: Right arm, Patient Position: Sitting) Pulse 61 Ht 1.829 m (6') Wt 95.9 kg (211 lb 6.4 oz) BMI 28.67 kg/m??? Smoking Status Former BSA 2.21 m??? Allergies Allergen Reactions Tylenol [Acetaminophen] Other Skin bumps Medications: Current Outpatient Medications on File Prior to Visit Medication Sig Dispense Refill lisinopril 20 mg tablet Take 20 mg by mouth in the morning. apixaban (Eliquis) 5 mg tablet Take 1 tablet by mouth in the morning and at bedtime. furosemide (Lasix) 20 mg tablet Take 1 tablet by mouth in the morning. metoprolol succinate XL (Toprol-XL) 100 mg 24 hr tablet Take 2 tablets by mouth in the morning. Increase to 1.5 tablets daily then 2 tablets daily sacubitriL-valsartan (Entresto) 24-26 mg tablet Take 1 tablet by mouth in the morning and at bedtime. (Patient not taking: Reported on 02/03/2023) 60 tablet 11 spironolactone (Aldactone) 25 mg tablet Take 1 tablet by mouth in the morning. [DISCONTINUED] colchicine 0.6 mg tablet Take 1 tablet by mouth in the morning. No current facility-administered medications on file prior to visit. Physical Exam: Constitutional: Appearance: Normal appearance. Without apparent distress HENT: Head: Normocephalic and atraumatic. Nose: Nose normal. Mouth/Throat: Mouth: Mucous membranes are moist. Eyes: Extraocular Movements: Extraocular movements intact. Conjunctiva/sclera: Conjunctivae normal. Neck: Vascular: No JVD. Cardiovascular: Rate and Rhythm: Normal rate and regular rhythm. Pulses: Dorsalis pedis pulses are 3 on the right side and 3on the left side. Posterior tibial pulses are 3 on the right side and 3 on the left side. Heart sounds: Normal heart sounds, S1 normal and S2 normal. Pulmonary: Effort: Pulmonary effort is normal. Breath sounds: Scattered wheezes throughout Abdominal: General: Bowel sounds are normal. Palpations: Abdomen is soft. Musculoskeletal: General: Normal range of motion. Cervical back: Normal range of motion. Right lower leg: No edema. Left lower leg: No edema. Skin: General: Skin is warm and dry. Capillary Refill: Capillary refill takes less than 2 seconds. Neurological: General: No focal deficit present. Mental Status: alert and oriented to person, place, and time. Psychiatric: Mood and Affect: Mood normal. Behavior: Behavior normal. Thought Content: Thought content normal. Judgment: Judgment normal. Labs: States he just had labs drawn with his PCP 01/15/2023- CBC stable Renal function normal BUN 15, creatinine 0.88 Potassium normal 4.5 Liver function normal proBNP was normal at 20 Last lab values have been reviewed CV Testing: Chest x-ray 01/15/2023- Cardiac Cath Report 08/12/2022 Performing Physicians: -Tacho Holland MD Procedures Performed: -Bilateral selective coronary angiography -Limited right radial and right subclavian angiography Final Impressions: -Patent coronary arteries Recommendations: -Optimization of medical management -Aggressive risk factor modification -Proceed with YOVANY/Cardioversion -Follow up with Cardiology as scheduled YOVANY/CV Conclusions: Biphasic cardioversion was performed at 360 J, the patient was converted to sinus rhythm Valvular Assessment LVOT 0.7 - 1.1 m/sec Aortic Valve 1.0 - 1.7 m/sec Mitral Valve 0.6 - 1.3 m/sec Tricuspid Valve 0.3 - 0.7 m/sec Pulmonic Valve 0.6 - 0.9 m/sec Regurgitation Mild MildMod Trivial No Findings Left Ventricle: The left ventricle appears enlarged. Global left ventricular systolic function is severely reduced. Left ventricular wall thickness is normal. Right Ventricle: The right ventricle is normal in size. Right ventricular syst (more content not included)... [facility] 02-03-2023 Note Pt is here for med c heck F/U [facility] pt states he stop take some of his meds due to having Diarrhea more then 3 times a day pt also stated he was having problems walking due to gout. Review of Systems Gastrointestinal: Positive for diarrhea. All other systems reviewed and are negative. [facility] 04-26-2022 Note PROCEDURE: XR KNEE L T 4V or > COMPARISON: None. HISTORY: Swelling FINDINGS: BONES:No fracture, acute abnormality, or significant arthropathy. SOFT TISSUES:Negative. No visible soft tissue swelling. EFFUSION:Moderate suprapatellar joint effusion OTHER: Negative. IMPRESSION: Moderate joint effusion Electronically authenticated by: NICK CABRALES Date: 2022-04-26 10:09 [facility] Summary Purpose Family History No Family History Records FoundNo Family History Records FoundNo Family History Records Found Advance Directives No Advanced Directives Records FoundNo Advanced Directives Records FoundNo Advanced Directives Records Found Additional Source Comments (unrecognized sect ion and content) No Status Records FoundNo Status Records FoundNo Status Records Found INFORMATION SOURCE (unrecogn ized section and content) DATE CREATED AUTHOR 10/30/2022 [facility] DATE CREATED AUTHOR AUTHOR'S ORGANIZ ATION 03/17/2023 [facility] DATE CREATED AUTHOR AUTHOR'S ORGANIZ ATION 11/07/2023 [facility] FOR RECORDS PERTAINING TO PATIENTS WHO ARE OR HAVE BEEN ENROLLED IN A CHEMICAL DEPENDENCY/SUBSTANCEABUSE PROGRAM, SOME INFORMATION MAY BE OMITTED. This clinical summary was aggregated from multiple sources. Caution should be exercised in using it in the provision of clinical care. This summary normalizes information from multiple sources, and as a consequence, information in this document may materially change the coding, format and clinical context of patient data. In addition, data may be omitted in some cases. CLINICAL DECISIONS SHOULD BE BASED ON THE PRIMARY CLINICAL RECORDS. [facility]. provides no warranty or guarantee of the accuracy or completeness of information in this document.
== END 2023-10-08 13:53 | disposition home or self-care (01) ==
LOC: CARD 13:52
PROVIDERS: PCP Nurse Practitioner Primary Care; Visit Provider Nurse Practitioner Primary Care
DX: Z53.9 Procedure and treatment not carried out, unspecified reason (principal)

== ENCOUNTER 2023-10-08 14:09 | Observation (INO) | payer BC, SELFPAY ==
[2023-10-08] VITALS (74 sets, daily range): BP systolic 115–167; BP diastolic 82–118; PULSE 77–175; RESP 7–34; TEMP 36.4–36.7; O2SAT 93–100; BMI 29.9; BMI 28.2
--- NOTE | 2023-10-08 14:17 | ECG_ITS ---
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: : 1955 Requested By: WARREN JOYNER Order Number: [id number] Reading MD: THONY BARNES Measurements Intervals [place] Rate: 169 P: -[id number] MS: -[id number] QRS: 5 QRSD: 76 T: 15 QT: 346 QTc: 438 Interpretive Statements 62321 Atrial fibrillation with rapid ventricular response [address] depression, probably digitalis effect 33107 Twave abnormality, possible anterior ischemia or digitalis effect 9150 abnormal ECG Compared to ECG 09/27/2023 21:36:30 ST (T wave) deviation now present Possible ischemia now present Sinus rhythm no longer present First degree AV block no longer present Myocardial infarct finding no longer present Electronically Signed On 10-10-2023 19:31:16 EST by THONY BARNES
--- NOTE | 2023-10-08 14:18 | XR_ITS ---
The [address] [address] Patient Name: GARRY STREETER MRN: [id number] date: 1955 Sex: M Assigned Patient Location: ED.MAIN Current Patient Location: ER Accession/Order Number: [id number] Exam Date: 10/08/2023 14:30 Report Date: 10/08/2023 14:53 At the request of: CORINA MACE Procedure: XR chest 1V EXAM: XR chest 1V at 1428 hours HISTORY: heart racing COMPARISON: 09/27/2023 TECHNIQUE: AP upright portable chest x-ray FINDINGS: The cardiac silhouette remains borderline enlarged without evidence of overt cardiac decompensation. The vasculature is not distended. No acute infiltrate, effusion or pneumothorax is identified. The previously identified subtle nodule at the right lung base is not visualized in the current study. The osseous structures are grossly intact. XR/XR chest 1V IMPRESSION: Borderline cardiac enlargement without overt cardiac decompensation. A focal infiltrate is not identified. The overall appearance of the chest is essentially unchanged. Electronically authenticated by: LUZMA PHAM Date: 10/08/2023 14:53
[2023-10-08] MEDS: 0.9 % SODIUM CHLORIDE 1,000 ML 999 ML IV (14:35)
[2023-10-08 14:36] LABS: Basophils Absolute Auto 0.1 10^3/uL (0.0-0.1); Basophils Percent Auto 0.5 % (0.2-2.0); Eosinophils Absolute Auto 0.3 10^3/uL (0.0-0.7); Hematocrit 40.8 % (42.0-54.0); Hemoglobin 14.5 g/dL (14.0-18.0); Immature Granulocytes Abs Auto 0.04 10^3/uL (0.00-0.03); Immature Granulocytes Pct Auto 0.4 % (0.0-0.5); Lymphocytes Absolute Auto 2.3 10^3/uL (1.2-3.8); Lymphocytes Percent Auto 24.6 % (20.5-60.0); Mean Corpuscular HGB Conc 35.5 g/dL (29.9-35.2); Mean Corpuscular Hemoglobin 32.9 pg (25.9-34.0); Mean Corpuscular Volume 92.5 fL (80.0-94.0); Mean Platelet Volume 10.2 fL (9.5-13.5); Monocytes Absolute Auto 0.8 10^3/uL (0.3-0.8); Neutrophils Absolute Auto 5.8 10^3/uL (1.4-6.5); Neutrophils Percent Auto 62.5 % (43.0-75.0); Platelet Count 170 10^3/uL (150-450); Red Blood Count 4.41 10^6/uL (4.70-6.10); Red Cell Distribution Width 12.9 % (11.0-15.0); White Blood Count 9.2 10^3/uL (4.0-11.0)
[2023-10-08] MEDS: DILTIAZEM HCL 25 MG/5 ML VIAL 20 MG IV (14:50)
[2023-10-08 14:55] LABS: D Dimer 0.55 mg/L FEU (<=0.59)
[2023-10-08] MEDS: dilTIAZem HCL 125 MG in 0.9 % SODIUM CHLORIDE 100 ML IV (15:02)
[2023-10-08 15:04] LABS: Anion Gap 14.4; BUN Creatinine Ratio 22.6; Calcium 8.7 mg/dL (8.5-10.1); Carbon Dioxide 26.7 mmol/L (21.0-32.0); Chloride 104 mmol/L (98-107); Estimated GFR (African America >60 (>=60); Estimated GFR (Non-African Ame >60 (>=60); Glucose 112 mg/dL (74-106); Potassium 4.1 mmol/L (3.5-5.1); Sodium 141 mmol/L (136-145); Troponin I High Sensitivity 17.6 pg/mL (4.0-76.1)
--- NOTE | 2023-10-08 15:11 | ED_ITS ---
HPI - General Adult General Chief complaint: Chest Pain Stated complaint: HEART RACING Time Seen by Provider: 10/08/23 14:14 Source: patient Mode of arrival: walk-in Limitations: no limitations History of Present Illness HPI narrative: Patient was at [facility] to get an ECHO when he was found to have fast HR and was sent to the ED for evaluation. He told me that this morning he felt his HR increase but I didn't have any other symptoms . He told me that he was able to doa lot of vigorous work at the home yesterday and I felt good . The patient told me that he stopped taking his meds yesterday - he took some of the morning meds but not all - because he developed an itchy rash and was concerned about side effects. His PCP is Dr Joyner and he sees Dr Gillespie @[facility] cardiology. No recent illness or injury. He was evaluated in the ED and placed on antibiotic. Related Data Home Medications Medication Instructions Recorded Confirmed apixaban 5 mg tablet (Eliquis) 5 mg PO BID 09/27/23 10/08/23 furosemide 20 mg tablet 20 mg PO QAM 09/27/23 10/08/23 losartan 50 mg tablet 50 mg PO QAM 09/27/23 10/08/23 metoprolol succinate 100 mg 200 mg PO BID 09/27/23 10/08/23 tablet,extended release 24 hr potassium chloride 20 mEq 20 meq PO DAILY 09/27/23 10/08/23 tablet,extended release spironolactone 25 mg tablet 25 mg PO DAILY 09/27/23 10/08/23 Previous Rx's Medication Instructions Recorded albuterol sulfate 90 mcg/actuation 2 inh inhalation Q4H PRN shortness 09/29/23 aerosol inhaler (Ventolin HFA) of breath or wheezing #6.7 grams Allergies Allergy/AdvReac Type Severity Reaction Status Date / Time No Known Drug Allergies Allergy Verified 09/27/23 21:31 [facility] Medical History (Updated 10/08/23 @ 15:16 by Corina Mace) Atrial fibrillation ?I48.91 - Unspecified atrial fibrillation (ICD-10) Chronic systolic HF (heart failure) ?I50.22 - Chronic systolic (congestive) heart failure (ICD-10) Congestive heart failure ?I50.9 - Heart failure, unspecified (ICD-10) High blood pressure ?I10 - Essential (primary) hypertension (ICD-10) HTN (hypertension) ?I10 - Essential (primary) hypertension (ICD-10) 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 or athletic groups, or school groups: yes Total score: 2 Score interpretation: A score of greater than or equal to 2 indicates the lowest level of social isolation. Little interest or pleasure in doing things: not at all Feeling down, depressed, or hopeless: not at all Feel stressed/tense/nervous/anxious/difficulty sleeping: not at all Do you think of yourself as: straight/heterosexual Gender Identity: male Exam Narrative Exam Narrative: Nurses notes and vital signs reviewed and patient is not hypoxic. afebrile General: Well-appearing and in no apparent distress. Skin: Warm, dry, no pallor noted. No rash. Head: Normocephalic, atraumatic. Neck: Supple, non-tender. Eye: Pupils are equal, round and EOMI. No scleral icterus. Ears, Nose, Mouth, and Throat: TM are clear, no nasal mucosal hypertrophy. Oral mucosa is moist, no posterior oropharynx erythema, uvula is mid-line Cardiovascular: rapid atrial fibrillation. Respiratory: No accessory muscle use or respiratory distress. Lungs are clear to auscultation, no wheezing, rales or rhonchi Chest Wall: no tenderness Back: No midline thoracic or lumbar vertebral tenderness. No CVA tenderness Musculoskeletal: normal ROM, no calf or popliteal tenderness, no lower extremity edema/swelling GI: Abdomen is soft, non-distended. Normal bowel sounds. No masses appreciated. No tenderness to palpation. No rebound, guarding, or rigidity noted. Neurological: A&O x4. No cranial nerve dysfunction observed. No truncal ataxia. Moves all extremities. Sensation intact. Psychiatric: Cooperative and interactive. Normal mood and affect. Constitutional Vital Signs, click to edit/add: Last Vital Signs Temp 97.6 F 10/08/23 14:18 Pulse 172 H 10/08/23 14:18 Resp 18 10/08/23 14:18 BP 167/98 H 10/08/23 14:18 Pulse Ox 99 10/08/23 14:18 O2 Del Method Room Air 10/08/23 14:18 Course Vital Signs Vital signs: Vital Signs Temperature 97.6 F 10/08/23 14:18 Pulse Rate 172 H 10/08/23 14:18 Respiratory Rate 18 10/08/23 14:18 Blood Pressure 167/98 H 10/08/23 14:18 Pulse Oximetry 99 10/08/23 14:18 Oxygen Delivery Method Room Air 10/08/23 14:18 Temperature 97.6 F 10/08/23 14:18 Pulse Rate 172 H 10/08/23 14:18 Respiratory Rate 18 10/08/23 14:18 Blood Pressure 167/98 H 10/08/23 14:18 Pulse Oximetry 99 10/08/23 14:18 Oxygen Delivery Method Room Air 10/08/23 14:18 Medical Decision Making Lab Data Lab results reviewed: Yes I reviewed the patient's lab results Labs: Lab Results 10/08/23 Range/Units 14:28 WBC 9.2 (4.0-11.0) 10^3/uL RBC 4.41 L (4.70-6.10) 10^6/uL Hgb 14.5 (14.0-18.0) g/dL Hct 40.8 L (42.0-54.0) % MCV 92.5 (80.0-94.0) fL MCH 32.9 (25.9-34.0) pg MCHC 35.5 H (29.9-35.2) g/dL RDW 12.9 (11.0-15.0) % Plt Count 170 (150-450) 10^3/uL MPV 10.2 (9.5-13.5) fL Neut % (Auto) 62.5 (43.0-75.0) % Lymph % (Auto) 24.6 (20.5-60.0) % [place] % (Auto) 9.0 (1.7-12.0) % Eos % (Auto) 3.0 (0.9-7.0) % Baso % (Auto) 0.5 (0.2-2.0) % Neut # (Auto) 5.8 (1.4-6.5) 10^3/uL Lymph # (Auto) 2.3 (1.2-3.8) 10^3/uL [place] # (Auto) 0.8 (0.3-0.8) 10^3/uL Eos # (Auto) 0.3 (0.0-0.7) 10^3/uL Baso # (Auto) 0.1 (0.0-0.1) 10^3/uL Abs Immat Gran (auto) 0.04 H (0.00-0.03) 10^3/uL Imm/Tot Granulo (auto) 0.4 (0.0-0.5) % D-Dimer 0.55 (<=0.59) mg/L FEU Sodium 141 (136-145) mmol/L Potassium 4.1 (3.5-5.1) mmol/L Chloride 104 (98-107) mmol/L Carbon Dioxide 26.7 (21.0-32.0) mmol/L Anion Gap 14.4 BUN 24.0 H (7.0-18.0) mg/dL Creatinine 1.06 (0.70-1.30) mg/dL Est GFR ( Amer) >60 (>=60) Est GFR (Non-Af Amer) >60 (>=60) BUN/Creatinine Ratio 22.6 Glucose 112 H (74-106) mg/dL Calcium 8.7 (8.5-10.1) mg/dL Troponin I High Sens 17.6 (4.0-76.1) pg/mL NT-Pro-B Natriuret Pep 132.0 (<=900.0) pg/mL Imaging Data Chest x-ray: Radiologist's impression: Patient Name: GARRY STREETER MRN: [id number] date: 1955 Sex: M Assigned Patient Location: ED.MAIN Current Patient Location: ER Accession/Order Number: [id number] Exam Date: 10/08/2023 14:30 Report Date: 10/08/2023 14:53 At the request of: CORINA MACE Procedure: XR chest 1V EXAM: XR chest 1V at 1428 hours HISTORY: heart racing COMPARISON: 09/27/2023 TECHNIQUE: AP upright portable chest x-ray FINDINGS: The cardiac silhouette remains borderline enlarged without evidence of overt cardiac decompensation. The vasculature is not distended. No acute infiltrate, effusion or pneumothorax is identified. The previously identified subtle nodule at the right lung base is not visualized in the current study. The osseous structures are grossly intact. IMPRESSION: Borderline cardiac enlargement without overt cardiac decompensation. A focal infiltrate is not identified. The overall appearance of the chest is essentially unchanged. Electronically authenticated by: LUZMA PHAM Date: 10/08/2023 14:53 ECG Data Attestation: I personally reviewed and interpreted this ECG as follows: Interpretation: EKG interpretation: Emergency Department physician interpretation. rapid atrial fibrillation at 169bpm. Normal axis, Non-specific ST changes with no ST segment elevation or depression. Discharge Plan Discharge Chief Complaint: Chest Pain Clinical Impression: Atrial fibrillation with rapid ventricular response Time of Disposition Decision: 15:13 Prescriptions / Home Meds: No Action metoprolol succinate 100 mg tablet extended release 24 hr 200 mg PO BID losartan 50 mg tablet 50 mg PO QAM Eliquis 5 mg tablet 5 mg PO BID potassium chloride 20 mEq tablet extended release 20 meq PO DAILY furosemide 20 mg tablet 20 mg PO QAM spironolactone 25 mg tablet 25 mg PO DAILY albuterol sulfate [Ventolin HFA] 90 mcg/actuation HFA aerosol inhaler 2 inh inhalation Q4H PRN (Reason: shortness of breath or wheezing) Qty: 6.7 0RF Referrals: WARREN JOYNER APRN [Primary Care Provider] - 1 week
--- NOTE | 2023-10-08 15:47 | PC.NURSE ---
Pt reports not taking his Metoprolol since yesterday morning . He is supposed to take it twice a day. Pt states he has been having a lot of side effects from one of his meds and he thought it might be that one. Pt reports burning itchy skin, increased phlegm and lightheadedness. Endorsed to Dr Trevino
--- NOTE | 2023-10-08 16:29 | PM.HP ---
H&P: HPI History of Present Illness Chief complaint: HEART RACING Narrative: patient is a 68-year-old male with past medical history of atrial fibrillation, chronic congestive heart failure who presented to get an echocardiogram today and was found to have an elevated heart rate and was sent to the emergency room. Patient reports he stopped taking his medications yesterday for concern about his rash. He notes that he felt his heart racing but denied any shortness of breath, dizziness, chest pain. 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 In the emergency department patient was found to be in atrial fibrillation with RVR. ProBNP was within normal range, troponin was within normal range, electrolytes were within normal range and CBC was appropriate. Chest x-ray showed mild cardiomegaly otherwise no other acute processes. Patient was given a bolus of Cardizem and placed on a Cardizem drip. Patient was admitted to the hospital for further evaluation and treatment. patient has a history of atrial fibrillation diagnosed in with successful cardioversion that same October. Atrial fibrillation started again about a month ago. Patient's PCP is Dr Jackson and he sees Dr Gillespie @[facility] cardi[facility]. Review of Systems ROS Narrative ROS: a complete review of systems were reviewed with patient and are positive as below or listed in History of Chief Complaint. General: no fever, chills, night sweats Head: no headache, trauma, visual changes, nausea or vomiting Skin: no reported rashes, itching or sores Eyes: no blurriness of vision Ears: no reported hearing loss, vertigo, earache, or tinnitus Throat: no sore throat, hoarseness, swelling of neck, or tongue pain Heart: heart racing, no chest pain Lungs: no shortness of breath or cough GI: no diarrhea or vomiting/nausea Urinary: no urinary urgency, frequency or pain Neuro: no numbness or tingling HEM: no bleeding issues or bruising ENDO: no thyroid problems Psych: no anxiety or depression [facility] Medical History Atrial fibrillation ?I48.91 - Unspecified atrial fibrillation (ICD-10) Chronic systolic HF (heart failure) ?I50.22 - Chronic systolic (congestive) heart failure (ICD-10) Congestive heart failure ?I50.9 - Heart failure, unspecified (ICD-10) Encounter for cardioversion procedure ?Z01.89 - Encounter for other specified special examinations (ICD-10) High blood pressure ?I10 - Essential (primary) hypertension (ICD-10) HTN (hypertension) ?I10 - Essential (primary) hypertension (ICD-10) 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 Highest level of school completed/degree received: high school graduate Are you now , , , , never or living with a partner: In a typical week, how many times do you talk on the telephone with family, friends, or neighbors: once per week How often do you get together with friends or relatives: once per week How often do you attend faith or taoist services: never Do you belong to any clubs or organizations such as faith groups unions, fraternal or athletic groups, or school groups: yes Total score: 2 Score interpretation: A score of greater than or equal to 2 indicates the lowest level of social isolation. Little interest or pleasure in doing things: not at all Feeling down, depressed, or hopeless: not at all Feel stressed/tense/nervous/anxious/difficulty sleeping: not at all Do you think of yourself as: straight/heterosexual Gender Identity: male Meds Home Medications and Allergies Home Medications Medication Instructions Recorded Confirmed Type apixaban 5 mg tablet (Eliquis) 5 mg PO BID 09/27/23 10/08/23 History furosemide 20 mg tablet 20 mg PO QAM 09/27/23 10/08/23 History losartan 50 mg tablet 50 mg PO QAM 09/27/23 10/08/23 History metoprolol succinate 100 mg 200 mg PO BID 09/27/23 10/08/23 History tablet,extended release 24 hr potassium chloride 20 mEq 20 meq PO DAILY 09/27/23 10/08/23 History tablet,extended release spironolactone 25 mg tablet 25 mg PO DAILY 09/27/23 10/08/23 History albuterol sulfate 90 mcg/actuation 2 inh inhalation Q4H PRN shortness 09/29/23 10/08/23 Rx aerosol inhaler (Ventolin HFA) of breath or wheezing #6.7 grams Allergies Allergy/AdvReac Type Severity Reaction Status Date / Time No Known Drug Allergies Allergy Verified 09/27/23 21:31 Exam Narrative Exam Narrative: General: Patient is alert, and oriented to person, place and time with normal affect, proper hygiene Skin: some erythematous papules on both sides of face Head: atraumatic, acephalic Eyes: PERRLA, no nystagmus present, conjunctiva clear, no scleral icterus Ears: normal gross auditory acuity Nose: symmetric, no discharge, no maxillary or frontal sinus tenderness Mouth/Throat: no erythema, exudate, or tonsillar enlargement, normal dentition Neck: no masses palpated, normal thyroid Heart: irregular rate and irregular rhythm, no murmurs/rubs/gallops Lungs: no audible wheezes, crackles and normal breath sounds all lung horn Abdomen: Normal audible bowel sounds, no distension, No palpable masses, no organomegaly, no rebound/guarding/ or rigidity Musculoskeletal: no swelling bilateral lower extremities Neuro: CN II-X grossly intact Constitutional Vital Signs, click to edit/add: Last Vital Signs Temp 98.0 F 10/08/23 16:24 Pulse 140 H 10/08/23 16:24 Resp 16 10/08/23 16:24 BP 118/84 10/08/23 16:24 Pulse Ox 96 10/08/23 16:24 O2 Del Method Room Air 10/08/23 16:24 O2 Flow Rate 2 10/08/23 14:30 Results Labs Labs: Short CBC 10/08/23 Range/Units 14:28 WBC 9.2 (4.0-11.0) 10^3/uL Hgb 14.5 (14.0-18.0) g/dL Hct 40.8 L (42.0-54.0) % Plt Count 170 (150-450) 10^3/uL BMP 10/08/23 14:28 Sodium 141 Potassium 4.1 Chloride 104 Carbon Dioxide 26.7 BUN 24.0 H Creatinine 1.06 Glucose 112 H Calcium 8.7 Assessment and Plan Assessment and Plan (1) Atrial fibrillation with rapid ventricular response: Assessment and Plan: TSH, ha1c, lipids ordered for morning. Electrolytes, trop, proBNP normal range. Chest Xray normal. Heart rate 160's, and rhythm is Afib. Admitted to ICU for closer care, continue Cardizem drip and transition to oral once controlled, restart home meds including metoprolol. continue eliquis. (2) Chronic systolic HF (heart failure): Assessment and Plan: no signs of acute chf. continue home meds. (3) HTN (hypertension): Assessment and Plan: continue home meds (4) Psoriasiform dermatitis: Plan patient is a full code continue eliquis for DVT prophylaxis patient was placed in observation status and is not expected to stay more than 2 midnights
[2023-10-08] MEDS: METOPROLOL SUCCINATE 100 MG TAB.ER.24H 200 MG PO (21:04)
[2023-10-08] MEDS: APIXABAN 5 MG TABLET PO (21:04)
[2023-10-09] VITALS (93 sets, daily range): BP systolic 100–132; BP diastolic 62–78; PULSE 65–101; RESP 5–39; TEMP 36.4; O2SAT 97
[2023-10-09] MEDS: ACETAMINOPHEN 325 MG TABLET 650 MG PO ×2 (02:06→06:04)
[2023-10-09] MEDS: dilTIAZem HCL 125 MG in 0.9 % SODIUM CHLORIDE 100 ML 10 MG IV (02:15)
[2023-10-09 04:59] LABS: Basophils Absolute Auto 0.1 10^3/uL (0.0-0.1); Basophils Percent Auto 0.7 % (0.2-2.0); Eosinophils Absolute Auto 0.5 10^3/uL (0.0-0.7); Eosinophils Percent Auto 5.5 % (0.9-7.0); Hematocrit 38.4 % (42.0-54.0); Hemoglobin 13.1 g/dL (14.0-18.0); Immature Granulocytes Abs Auto 0.02 10^3/uL (0.00-0.03); Immature Granulocytes Pct Auto 0.2 % (0.0-0.5); Lymphocytes Absolute Auto 2.6 10^3/uL (1.2-3.8); Lymphocytes Percent Auto 29.5 % (20.5-60.0); Mean Corpuscular HGB Conc 34.1 g/dL (29.9-35.2); Mean Corpuscular Hemoglobin 32.6 pg (25.9-34.0); Mean Corpuscular Volume 95.5 fL (80.0-94.0); Mean Platelet Volume 10.3 fL (9.5-13.5); Monocytes Absolute Auto 0.6 10^3/uL (0.3-0.8); Monocytes Percent Auto 7.1 % (1.7-12.0); Neutrophils Absolute Auto 4.9 10^3/uL (1.4-6.5); Platelet Count 151 10^3/uL (150-450); Red Blood Count 4.02 10^6/uL (4.70-6.10); White Blood Count 8.7 10^3/uL (4.0-11.0)
[2023-10-09 06:07] LABS: Estimated Average Glucose 123 mg/dL; Glycohemoglobin A1C 5.9 % (4.5-6.2)
[2023-10-09 06:11] LABS: Alanine Aminotransferase 23 U/L (16-63); Albumin Globulin Ratio 0.8; Albumin Level 2.7 g/dL (3.4-5.0); Alkaline Phosphatase 60 U/L (46-116); Anion Gap 12.5; BUN Creatinine Ratio 17.8; Bilirubin Total 0.6 mg/dL (0.2-1.0); Calcium 8.4 mg/dL (8.5-10.1); Carbon Dioxide 25.7 mmol/L (21.0-32.0); Chloride 105 mmol/L (98-107); Chol HDL Ratio 4.8; Cholesterol 163 mg/dL (<=200); Estimated GFR (African America >60 (>=60); Estimated GFR (Non-African Ame >60 (>=60); Globulin 3.5 g/dL; Glucose 107 mg/dL (74-106); HDL Cholesterol 34 mg/dL (40-60); Potassium 4.2 mmol/L (3.5-5.1); Sodium 139 mmol/L (136-145); Thyroid Stimulating Hormone 1.125 uIU/mL (0.358-3.740); Total Protein 6.2 g/dL (6.4-8.2); Triglycerides 255 mg/dL (<=150)
[2023-10-09 06:12] LABS: Aspartate Amino Transferase <15 U/L (15-37)
[2023-10-09] MEDS: LOSARTAN POTASSIUM 50 MG TABLET PO (08:14)
[2023-10-09] MEDS: POTASSIUM CHLORIDE 10 MEQ ER TABLET 20 MEQ PO (08:14)
[2023-10-09] MEDS: FUROSEMIDE 20 MG TABLET PO (08:14)
[2023-10-09] MEDS: METOPROLOL SUCCINATE 100 MG TAB.ER.24H 200 MG PO (08:14)
[2023-10-09] MEDS: APIXABAN 5 MG TABLET PO (08:14)
[2023-10-09] MEDS: SPIRONOLACTONE 25 MG TABLET PO (08:15)
--- NOTE | 2023-10-09 09:27 | PM.DS1 ---
DS: Providers Provider Date of admission: 10/08/23 15:50 Primary care physician: PAN RODRIGUEZ Consults: 10/08/23 16:20 Physical Therapy Eval and Treat Routine Reason for consultation: weakness Has provider been notified: No DS: Diagnosis Discharge Diagnosis (1) Atrial fibrillation with rapid ventricular response: (2) Chronic systolic HF (heart failure): (3) HTN (hypertension): (4) Psoriasiform dermatitis: Plan (1) Atrial fibrillation with rapid ventricular response: (2) Chronic systolic HF (heart failure): (3) HTN (hypertension): (4) Psoriasiform dermatitis: (5) iron deficiency anemia (6) hyperglycemia (7) hypocalcemia (8) hypertriglyceridemia (9) moderate protein calorie malnutrition DS: Summary Hospital Course Hospital Course: Scented to the hospital to get echocardiogram, found a heart rate in the 160s, patient had been off of his metoprolol 200 mg p.o. twice daily for the last day. Patient was transferred to the ER. Given Cardizem bolus which did not improve his heart rate significantly so placed on Cardizem drip. Transferred to the ICU. Once in the ICU his heart rate did improve once restarting his oral metoprolol. This morning's been able to be weaned off of Cardizem drip. Restarted on his oral metoprolol. He feels back to his normal self. He is still in atrial fibrillation. Old echocardiogram does confirm significantly large left and right atria. Patient likely in and out of atrial fibrillation. Already anticoagulated. At this point we will discharge patient home in improving condition. Medications see list. Follow-up with PCP within the next week. Complete echocardiogram as an outpatient Time Spent with Patient Time attestation: Total time spent providing and/or coordinating discharge services: Exam Constitutional Vital Signs, click to edit/add: Last Vital Signs Temp 97.6 F 10/09/23 04:46 Pulse 80 10/09/23 09:00 Resp 18 10/09/23 04:46 BP 110/69 10/09/23 04:46 Pulse Ox 97 10/09/23 05:10 O2 Del Method Room Air 10/09/23 05:10 O2 Flow Rate 2 10/08/23 14:30 DS: Data Data Completed and Pending Labs on day of discharge: Labs from last 24 hours 10/09/23 10/08/23 04:43 14:28 WBC 8.7 9.2 RBC 4.02 L 4.41 L Hgb 13.1 L 14.5 Hct 38.4 L 40.8 L MCV 95.5 H 92.5 MCH 32.6 32.9 MCHC 34.1 35.5 H RDW 13.0 12.9 Plt Count 151 170 MPV 10.3 10.2 Neut % (Auto) 57.0 62.5 Lymph % (Auto) 29.5 24.6 [place] % (Auto) 7.1 9.0 Eos % (Auto) 5.5 3.0 Baso % (Auto) 0.7 0.5 Neut # (Auto) 4.9 5.8 Lymph # (Auto) 2.6 2.3 [place] # (Auto) 0.6 0.8 Eos # (Auto) 0.5 0.3 Baso # (Auto) 0.1 0.1 Abs Immat Gran (auto) 0.02 0.04 H Imm/Tot Granulo (auto) 0.2 0.4 D-Dimer 0.55 Sodium 139 141 Potassium 4.2 4.1 Chloride 105 104 Carbon Dioxide 25.7 26.7 Anion Gap 12.5 14.4 BUN 18.0 24.0 H Creatinine 1.01 1.06 Est GFR ( Amer) >60 >60 Est GFR (Non-Af Amer) >60 >60 BUN/Creatinine Ratio 17.8 22.6 Glucose 107 H 112 H Estimat Average Glucose 123 Hemoglobin A1c 5.9 Calcium 8.4 L 8.7 Magnesium 2.0 Total Bilirubin 0.6 AST <15 L ALT 23 Alkaline Phosphatase 60 Troponin I High Sens 17.6 NT-Pro-B Natriuret Pep 812.0 132.0 Total Protein 6.2 L Albumin 2.7 L Globulin 3.5 Albumin/Globulin Ratio 0.8 Triglycerides 255 H Cholesterol 163 LDL Cholesterol, Calc 78.0 VLDL Cholesterol 51.0 HDL Cholesterol 34 L Cholesterol/HDL Ratio 4.8 TSH 1.125 Discharge Plan Discharge Disposition: Home, Self-Care Condition: Fair Discharge Medications: Continued metoprolol succinate 100 mg tablet extended release 24 hr 200 mg PO BID losartan 50 mg tablet 50 mg PO QAM Eliquis 5 mg tablet 5 mg PO BID potassium chloride 20 mEq tablet extended release 20 meq PO DAILY furosemide 20 mg tablet 20 mg PO QAM spironolactone 25 mg tablet 25 mg PO DAILY albuterol sulfate [Ventolin HFA] 90 mcg/actuation HFA aerosol inhaler 2 inh inhalation Q4H PRN (Reason: shortness of breath or wheezing) Qty: 6.7 0RF Forms: Portal Instructions Follow Up Appointments: left message at [facility] office to call pt to schedule f/u appt.
--- NOTE | 2023-10-11 15:34 | CM.DCFOLLOWU ---
Person spoke with: Wesly How are you feeling? Much better besides working out in the cold. How is your pain? None Did you understand your discharge instructions? Yes Do you have any questions about your discharge instructions? No Were you given any prescriptions at discharge? No Were you able to get your prescriptions filled? N/A Do you understand how to take your medications as ordered? yes Do you have any questions about your follow up appointment and do you plan to keep your follow up appointment? Calling to clarify I have 2 appointments scheduled. Pt given cardiology phone number. Is there anything else that you would like to discuss? No Questions/Comments/Concerns/Other:
--- OUTSIDE RECORDS SUMMARY | 2023-11-09 20:10 | XMS_ITS | CCD ---
Author Name Unknown Address [address] [place] [address] Organization [facility] Care Team Providers Care Vamp Seamer Name Role Phone TAVIA [place] Attending Unavailable ALGHOSYLVIAANI, MOHSHRADDHA Consulting Unavailable MISC, DR NARANJO Primary Care Unavailable ALGHOTHANI, LEANDROAMAPatienec Attending Unavailable ALGHOTHANI, MOHAMAD Admitting Unavailable ALGHOTHANI, [...] WARREN Admitting Unavailable SHAMMO, WARREN Consulting Unavailable JAMSE, SARAH Consulting Unavailable SHAMMO, WARREN Primary Care [...] Acetaminophen; Translations: [ACETAMINOPHEN] Drug Allergy 09-15-2022 [facility] Problems Active Problems Problem Classification Problem [...] Da te Episodic/Chronic Other aftercare (1 source) FDC (current) use of anticoagulants; Translations: [FDC CURRNT USE ANTICOAGULANTS] Onset: 11-01-2022 Episodic Other [...] on it so should be fine Normal [facility] Telephoneon 11-04-2023 Telephone [id number] Ben Streeter W 1955 M Date Provider Department Center 11/04/2023 MONICA BARRIENTOS CARD [facility] Family History Problem Relation Age of Onset Colon cancer Brother Family Status - Relation Status Age at Brother Normal [facility] Office Visiton 08-30-2023 Follow-up visit [id number] Ben Streeter rt W 1955 M Date Provider Department Center 08/30/2023 [id number] SPENCER [facility] Esha Champion Family History Problem Relation Age of Onset Colon cancer Brother Family Status - Relation Status Age at Brother Level of Service:19580 [place] OFFICE/OUTPATIENT ESTABLISHED MOD MDM 30-39 MIN Normal [facility] Office Visiton 03-22-2023 Follow-up visit [id number] Ben Streeter rt W 1955 M Date Provider Department Center 03/22/2023 [id number] LEANDROSHRADDHA [facility] Family History Problem Relation Age of Onset Colon cancer Brother Family Status - Relation Status Age at Brother Level of Service:99471 [place] OFFICE/OUTPATIENT ESTABLISHED MOD MDM 30-39 MIN Reason for Visit and Comments: Follow-up [878602] - f/u echo Normal [facility] ECHOCARDIO M/2D COMPLETEon 0 03-01-2023 ECHOCARDIO M/2D COMPLETE Patient: GARRY STREETER Exam Date: 03/01/2023 : 1955 Gender:M Ordering : SARAH RAMIREZ Admission #: [id number] Family : WARREN JOYNER BURR BENCH OPERATOR-C Order #: [id number] CLICK HERE TO VIEW EXAM ECHOCARDIOGRAM REPORT [...] Baumann M.D. on 03/01/2023 at 09:21 Normal [facility] Office Visiton 02-03-2023 Follow-up visit [id number] Ben Streeter rt W 1955 M Date Provider Department Center 02/03/2023 SARAH KHAN [facility] Family History Problem Relation Age of Onset Colon cancer Brother Family Status - Relation Status Age at Brother Level of Service:74030 [place] OFFICE/OUTPATIENT ESTABLISHED MOD MDM 30-39 MIN Reason for Visit and Comments: Med Refill [105313] Atrial Fibrillation [80] Congestive Heart Failure [127] Normal [facility] BNPon 01-15-2023 Natriuretic peptide B (Bld) [Mass/Vol] 20.0 pg/mL Normal <=900.0 [facility] Comment on above: Performed By: #### B BURR BENCH OPERATOR, MG, CMP #### [facility] [address] [place] [address] Dr. Miah Veloz HEMOGRAM AND PLATELon 2022 Hematocrit (Bld) [Volume fraction] 41.3 % Critically low 42.0-54.0 [facility] Comment on above: Performed By: #### B BURR BENCH OPERATOR, CMP, HSTROPN #### [facility] [address] [place] [address] Dr. Miah Veloz Hemoglobin (Bld) [Mass/Vol] 14.2 g/dL Normal 14.0-18. 0 [facility] Comment on above: Performed By: #### B BURR BENCH OPERATOR, CMP, HSTROPN #### [facility] [address] [address] [address] Miah Veloz MCH (RBC) [Entitic mass] 31.5 pg Normal 25.9-34.0 [facility] Comment on above: Performed By: #### B BURR BENCH OPERATOR, CMP, HSTROPN #### [facility] [address] [place] [address] Dr. Miah Veloz MCHC (RBC) [Mass/Vol] 34.4 g/dL Normal 29.9-35.2 [facility] Comment on above: Performed By: #### B BURR BENCH OPERATOR, CMP, HSTROPN #### [facility] [address] [place] [address] Dr. Miah Veloz MCV (RBC) [Entitic vol] 91.6 fL Normal 80.0-94.0 [facility] Comment on above: Performed By: #### B BURR BENCH OPERATOR, CMP, HSTROPN #### [facility] [address] [place] [address] Dr. Miah Veloz PLT 173 103/ul Normal 150-[address] [facility] Comment on above: Performed By: #### B BURR BENCH OPERATOR, CMP, HSTROPN #### [facility] [address] [place] [address] Dr. Miah Veloz RBC 4.51 106/ul Critically low 4.70-6.10 [facility] Comment on above: Performed By: #### B BURR BENCH OPERATOR, CMP, HSTROPN #### [facility] [address] [place] [address] Dr. Miah Veloz WBC 5.8 103/ul Normal 4.0-11.[address] [facility] Comment on above: Performed By: #### B BURR BENCH OPERATOR, CMP, HSTROPN #### [facility] [address] [place] [address] Dr. Miah Veloz MAGNESIUMon 01-15-2023 Magnesium [Mass/Vol] 1.9 mg/dL Normal 1.8-2.4 [facility] Comment on above: Performed By: #### B BURR BENCH OPERATOR, MG, CMP #### [facility] [address] [place] [address] Dr. Miah Veloz PROF 14(COMP METB)on 023 Albumin [Mass/Vol] 3.8 g/dL Normal 3.4-5.0 [facility] Comment on above: Performed By: #### B BURR BENCH OPERATOR, MG, CMP #### [facility] [address] [place] [address] Dr. Miah Veloz Albumin/Globulin [Mass ratio] 0.9 {ratio} Normal [facility] Comment on above: Performed By: #### B BURR BENCH OPERATOR, MG, CMP #### [facility] [address] [place] [address] Dr. Miah Veloz ALP [Catalytic activity/Vol] 86 U/L Normal 46-116 [facility] Comment on above: Performed By: #### B BURR BENCH OPERATOR, MG, CMP #### [facility] [address] [place] [address] Dr. Miah Veloz ALT [Catalytic activity/Vol] 26 U/L Normal 16-63 [facility] Comment on above: Performed By: #### B BURR BENCH OPERATOR, MG, CMP #### [facility] [address] [place] [address] Dr. Miah Veloz Anion gap [Moles/Vol] 11.3 mmol/L Normal [facility] Comment on above: Performed By: #### B BURR BENCH OPERATOR, MG, CMP #### [facility] [address] [place] [address] Dr. Miah Veloz AST [Catalytic activity/Vol] 18 U/L Normal 15-37 [facility] Comment on above: Performed By: #### B BURR BENCH OPERATOR, MG, CMP #### [facility] [address] [place] [address] Dr. Miah Veloz Bilirubin [Mass/Vol] 0.6 mg/dL Normal 0.2-1.0 [facility] Comment on above: Performed By: #### B BURR BENCH OPERATOR, MG, CMP #### [facility] [address] [place] [address] Dr. Miah Veloz Calcium [Mass/Vol] 9.4 mg/dL Normal 8.5-10.1 [facility] Comment on above: Performed By: #### B BURR BENCH OPERATOR, MG, CMP #### [facility] [address] [place] [address] Dr. Miah Veloz Chloride [Moles/Vol] 105 mmol/L Normal 98-107 [facility] Comment on above: Performed By: #### B BURR BENCH OPERATOR, MG, CMP #### [facility] [address] [place] [address] Dr. Miah Velzo CO2 [Moles/Vol] 30.2 mmol/L Normal 21.0-32.0 [facility] Comment on above: Performed By: #### B BURR BENCH OPERATOR, MG, CMP #### [facility] [address] [place] [address] Dr. Miah Veloz Creatinine [Mass/Vol] 0.88 mg/dL Normal 0.70-1.30 [facility] Comment on above: Performed By: #### B BURR BENCH OPERATOR, MG, CMP #### [facility] [address] [place] [address] Dr. Miah Veloz EGFR-AF AUSTRIAN >60 Normal >=60 [facility] Comment on above: Performed By: #### B BURR BENCH OPERATOR, MG, CMP #### [facility] [address] [place] [address] Dr. Miah Veloz EGFR-NON AF AUSTRIAN >60 Normal >=60 [facility] Comment on above: Performed By: #### B BURR BENCH OPERATOR, MG, CMP #### [facility] [address] [place] [address] Dr. Miah Veloz Globulin (S) [Mass/Vol] 4.1 g/dL Normal [facility] Comment on above: Performed By: #### B BURR BENCH OPERATOR, MG, CMP #### [facility] [address] [place] [address] Dr. Miah Veloz Glucose [Mass/Vol] 98 mg/dL Normal 74-106 [facility] Comment on above: Performed By: #### B BURR BENCH OPERATOR, MG, CMP #### [facility] [address] [place] [address] Dr. Miah Veloz Potassium [Moles/Vol] 4.5 mmol/L Normal 3.5-5.1 [facility] Comment on above: Performed By: #### B BURR BENCH OPERATOR, MG, CMP #### [facility] [address] [place] [address] Dr. Miah Veloz Protein [Mass/Vol] 7.9 g/dL Normal 6.4-8.2 [facility] Comment on above: Performed By: #### B BURR BENCH OPERATOR, MG, CMP #### [facility] [address] [place] [address] Dr. Miah Veloz Sodium [Moles/Vol] 142 mmol/L Normal 136-145 [facility] Comment on above: Performed By: #### B BURR BENCH OPERATOR, MG, CMP #### [facility] [address] [place] [address] Dr. Miah Veloz Urea nitrogen [Mass/Vol] 15.0 mg/dL Normal 7.0-18.0 [facility] Comment on above: Performed By: #### B BURR BENCH OPERATOR, MG, CMP #### [facility] [address] [place] [address] Dr. Miah Veloz Urea nitrogen/Creatinine [Mass ratio] 17.0 mg/mg Normal [facility] Comment on above: Performed By: #### B BURR BENCH OPERATOR, MG, CMP #### [facility] [address] [place] [address] Dr. Miah Vleoz XR CHEST 2 Von 01-15-2023 XR CHEST [...] LUZMA PHAM Date: 2023-01-15 12:47 Normal [facility] SURGICAL PATH REPORTon 10-29 SURGICAL PATH REPORT [facility] Department of Pathology [address] [place] [id number] Name: GARRY STREETER : 1955 Financial [id number] Number: Gender Male Locatio [place] : n: Admit 67 years Attending TAVIA [place] Age: Provider: Ordering TAVIA [place] Provider: Consulti Surgical Pathology Report ng: ACCESSION: COLLECTED DATE/TIME: RECEIVED DATE/TIME: PATHOLOGIST: [id number] 10/28/2022 11:24 EST 10/28/2022 11:24 EST MATT PELAEZ MD Final Diagnosis Report for [facility] [place] [place] (A) SIGMOID POLYP AT 40 CM: [...] ____ Print 10/29/2022 14:17 EST Number: Date/Time: [facility] Department of Pathology [address] [place] [id number] [phone] Name: GARRY STREETER : 1955 Financial [id number] Number: Gender Male Dim[place] : n: Admit 67 years Attending TAVIA [place] Age: Provider: Ordering TAVIA [place] Provider: Mikei Surgical Pathology Report ng: ACCESSION: COLLECTED DATE/TIME: RECEIVED DATE/TIME: PATHOLOGIST: [id number] 10/28/2022 11:24 EST 10/28/2022 11:24 EST MATT [...] MP/ald 10/28/2022 Tissue pathology report for: [facility], [address] [place] [address]; PATHOLOGY SERVICES PROVIDED BY [employer] (CLIA #[id number]) in cooperation with [facility] at [address] [place] [address] ( CLIA #[id number]) Codes CPT CODE: 48084O5 ____ Print 10/29/2022 14:17 EST Number: Date/Time: [facility] Comment on above: Performed By: #### [id number] #### [facility] [address] [place] [address] Parimutuel Cashier: Matt Pelaez MD Covid-19 PCR ([facility])on SARS-CoV-2 (COVID-19) RNA GÓMEZ+probe Ql (Unsp spec) Not detected Normal NOT DETECTED [facility] Comment on above: Result Comment: This test is not yet approved or cleared by the [place] FDA. When there are no FDA-approved or cleared tests available, and other criteria are met, FDA can make tests available under an emergency access mechanism called an Emergency Use Authorization (EUA). The EUA for this test is supported by the [place] of Health and Human Service's (HHS's) declaration [...] SARS-CoV-2. Performed By: #### C VDTBH #### [facility] [address] [place] [address] Dr. Miah Veloz CBC AUTO DIFFon 08-10-2022 BASO # 0.1 103/ul Normal 0.0-0.1 [facility] Comment on above: Performed By: #### B BURR BENCH OPERATOR, CMP, HSTROPN #### [facility] [address] [address] [address] Miah Veloz Basophils/100 WBC (Bld) 0.7 % Normal 0.2-2.0 [facility] Comment on above: Performed By: #### B BURR BENCH OPERATOR, CMP, HSTROPN #### [facility] [address] [place] [address] Dr. Miah Veloz EO # 0.4 103/ul Normal 0.0-0.7 [facility] Comment on above: Performed By: #### B BURR BENCH OPERATOR, CMP, HSTROPN #### [facility] [address] [place] [address] Dr. Miah Veloz Eosinophils/100 WBC (Bld) 4.1 % Normal 0.9-7.0 [facility] Comment on above: Performed By: #### B BURR BENCH OPERATOR, CMP, HSTROPN #### [facility] [address] [place] [address] Dr. Miah Veloz Erythrocyte distribution wid th (RBC) [Ratio] 16.0 % Critically high 11.0-15.0 [facility] pital Comment on above: Performed By: #### B BURR BENCH OPERATOR, CMP, HSTROPN #### [facility] [address] [place] [address] Dr. Miah Veloz Hematocrit (Bld) [Volume fraction] 41.2 % Critically low 42.0-54.0 [facility] p[facility] Comment on above: Performed By: #### B BURR BENCH OPERATOR, CMP, HSTROPN #### [facility] [address] [place] [address] Dr. Miah Veloz Hemoglobin (Bld) [Mass/Vol] 14.1 g/dL Normal 14.0-18. 0 [facility] Comment on above: Performed By: #### B BURR BENCH OPERATOR, CMP, HSTROPN #### [facility] [address] [place] [address] Dr. Miah Veloz IG # 0.03 10e3/ul Normal 0.00-0.03 [facility] Comment on above: Performed By: #### B BURR BENCH OPERATOR, CMP, HSTROPN #### [facility] [address] [place] [address] Dr. Miah Veloz IG % 0.3 % Normal 0.0-0.[address] [facility] Comment on above: Performed By: #### B BURR BENCH OPERATOR, CMP, HSTROPN #### [facility] [address] [place] [address] Dr. Miah Veloz LYMPH # 2.8 103/ul Normal 1.2-3.[address] [facility] Comment on above: Performed By: #### B BURR BENCH OPERATOR, CMP, HSTROPN #### [facility] [address] [place] [address] Dr. Miah Veloz Lymphocytes/100 WBC (Bld) 28.5 % Normal 20.5-60.0 [facility] Comment on above: Performed By: #### B BURR BENCH OPERATOR, CMP, HSTROPN #### [facility] [address] [place] [address] Dr. Miah Veloz MANUAL DIFF REQ NO Normal [facility] Comment on above: Performed By: #### B BURR BENCH OPERATOR, CMP, HSTROPN #### [facility] [address] [place] [address] Dr. Miah Veloz MCH (RBC) [Entitic mass] 32.4 pg Normal 25.9-34.0 [facility] Comment on above: Performed By: #### B BURR BENCH OPERATOR, CMP, HSTROPN #### [facility] [address] [place] [address] Dr. Miah Veloz MCHC (RBC) [Mass/Vol] 34.2 g/dL Normal 29.9-35.2 [facility] Comment on above: Performed By: #### B BURR BENCH OPERATOR, CMP, HSTROPN #### [facility] [address] [place] [address] Dr. Miah Veloz MCV (RBC) [Entitic vol] 94.7 fL Critically high 80.0-94 .0 [facility] Comment on above: Performed By: #### B BURR BENCH OPERATOR, CMP, HSTROPN #### [facility] [address] [place] [address] Dr. Miah Veloz MONO # 0.8 103/ul Normal 0.3-0.8 [facility] Comment on above: Performed By: #### B BURR BENCH OPERATOR, CMP, HSTROPN #### [facility] [address] [place] [address] Dr. Miah Veloz Monocytes/100 WBC (Bld) 7.6 % Normal 1.7-12.0 [facility] Comment on above: Performed By: #### B BURR BENCH OPERATOR, CMP, HSTROPN #### [facility] [address] [place] [address] Dr. Miah Veloz NEUT # 5.8 103/ul Normal 1.4-6.[address] [facility] Comment on above: Performed By: #### B BURR BENCH OPERATOR, CMP, HSTROPN #### [facility] [address] [place] [address] Dr. Miah Veloz Neutrophils/100 WBC (Bld) 58.8 % Normal 43.0-75.0 [facility] Comment on above: Performed By: #### B BURR BENCH OPERATOR, CMP, HSTROPN #### [facility] [address] [place] [address] Dr. Miah Veloz Platelet mean volume (Bld) [ Entitic vol] 10.3 fL Normal 9.5-13.5 [facility] pital Comment on above: Performed By: #### B BURR BENCH OPERATOR, CMP, HSTROPN #### [facility] [address] [place] [address] Dr. Miah Veloz PLT 184 103/ul Normal 150-[address] [facility] Comment on above: Performed By: #### B BURR BENCH OPERATOR, CMP, HSTROPN #### [facility] [address] [place] [address] Dr. Miah Veloz RBC 4.35 106/ul Critically low 4.70-6.10 [facility] Comment on above: Performed By: #### B BURR BENCH OPERATOR, CMP, HSTROPN #### [facility] [address] [place] [address] Dr. Miah Veloz WBC 9.9 103/ul Normal 4.0-11.[address] [facility] Comment on above: Performed By: #### B BURR BENCH OPERATOR, CMP, HSTROPN #### [facility] [address] [place] [address] Dr. Miah Veloz PROF CHEM 8 (BAS METB)on Anion gap [Moles/Vol] 13.2 mmol/L Normal [facility] Comment on above: Performed By: #### B BURR BENCH OPERATOR, CMP, HSTROPN #### [facility] [address] [place] [address] Dr. Miah Veloz Calcium [Mass/Vol] 8.8 mg/dL Normal 8.5-10.1 [facility] Comment on above: Performed By: #### B BURR BENCH OPERATOR, CMP, HSTROPN #### [facility] [address] [place] [address] Dr. Miah Veloz Chloride [Moles/Vol] 107 mmol/L Normal 98-107 [facility] Comment on above: Performed By: #### B BURR BENCH OPERATOR, CMP, HSTROPN #### [facility] [address] [place] [address] Dr. Miah Veloz CO2 [Moles/Vol] 25.5 mmol/L Normal 21.0-32.0 [facility] Comment on above: Performed By: #### B BURR BENCH OPERATOR, CMP, HSTROPN #### [facility] [address] [place] [address] Dr. Miah Veloz Creatinine [Mass/Vol] 1.37 mg/dL Critically high 0.70-1.30 [facility] Comment on above: Performed By: #### B BURR BENCH OPERATOR, CMP, HSTROPN #### [facility] [address] [place] [address] Dr. Miah Veloz EGFR-AF AUSTRIAN >60 Normal >=60 [facility] Comment on above: Performed By: #### B BURR BENCH OPERATOR, CMP, HSTROPN #### [facility] [address] [place] [address] Dr. Miah Veloz EGFR-NON AF AUSTRIAN 52 mL/min/1.73m2 Critically low >=60 [facility] Comment on above: Performed By: #### B BURR BENCH OPERATOR, CMP, HSTROPN #### [facility] [address] [place] [address] Dr. Miah Veloz Glucose [Mass/Vol] 103 mg/dL Normal 74-106 [facility] Comment on above: Performed By: #### B BURR BENCH OPERATOR, CMP, HSTROPN #### [facility] [address] [place] [address] Dr. Miah Veloz Potassium [Moles/Vol] 4.7 mmol/L Normal 3.5-5.1 [facility] Comment on above: Performed By: #### B BURR BENCH OPERATOR, CMP, HSTROPN #### [facility] [address] [address] [address] Miah Veloz Sodium [Moles/Vol] 141 mmol/L Normal 136-145 [facility] Comment on above: Performed By: #### B BURR BENCH OPERATOR, CMP, HSTROPN #### [facility] [address] [address] [address] Miah Veloz Urea nitrogen [Mass/Vol] 32.0 mg/dL Critically high 7.0-18 .0 [facility] Comment on above: Performed By: #### B BURR BENCH OPERATOR, CMP, HSTROPN #### [facility] [address] [address] [address] Miah Veloz Urea nitrogen/Creatinine [Mass ratio] 23.4 mg/mg Normal [facility] Comment on above: Performed By: #### B BURR BENCH OPERATOR, CMP, HSTROPN #### [facility] [address] [address] [address] Miah Veloz ECHOCARDIO M/2D COMPLETEon 0 08-05-2022 ECHOCARDIO M/2D COMPLETE Patient: GARRY STREETER Exam Date: 08/05/2022 : 1955 Gender:M [facility] #: [id number] Family : Order #: [id number] CLICK HERE TO VIEW EXAM ECHOCARDIOGRAM REPORT [...] M.D. on 08/05/2022 at 14:32 Normal [facility] PROF 14(COMP METB)on 022 Albumin [Mass/Vol] 3.4 g/dL Normal 3.4-5.0 [facility] Comment on above: Performed By: #### B BURR BENCH OPERATOR, CMP, HSTROPN #### [facility] [address] [place] [address] Dr. Miah Veloz Albumin/Globulin [Mass ratio] 0.9 {ratio} Normal [facility] Comment on above: Performed By: #### B BURR BENCH OPERATOR, CMP, HSTROPN #### [facility] [address] [address] [address] Miah Veloz ALP [Catalytic activity/Vol] 73 U/L Normal 46-116 [facility] Comment on above: Performed By: #### B BURR BENCH OPERATOR, CMP, HSTROPN #### [facility] [address] [address] [address] Miah Veloz ALT [Catalytic activity/Vol] 31 U/L Normal 16-63 [facility] Comment on above: Performed By: #### B BURR BENCH OPERATOR, CMP, HSTROPN #### [facility] [address] [place] [address] Dr. Miah Veloz Anion gap [Moles/Vol] 13.6 mmol/L Normal [facility] Comment on above: Performed By: #### B BURR BENCH OPERATOR, CMP, HSTROPN #### [facility] [address] [place] [address] Dr. Miah Veloz AST [Catalytic activity/Vol] 14 U/L Critically low 15- 37 [facility] Comment on above: Performed By: #### B BURR BENCH OPERATOR, CMP, HSTROPN #### [facility] [address] [place] [address] Dr. Miah Veloz Bilirubin [Mass/Vol] 0.6 mg/dL Normal 0.2-1.0 [facility] Comment on above: Performed By: #### B BURR BENCH OPERATOR, CMP, HSTROPN #### [facility] [address] [place] [address] Dr. Miah Veloz Calcium [Mass/Vol] 8.8 mg/dL Normal 8.5-10.1 [facility] Comment on above: Performed By: #### B BURR BENCH OPERATOR, CMP, HSTROPN #### [facility] [address] [place] [address] Dr. Miah Veloz Chloride [Moles/Vol] 105 mmol/L Normal 98-107 [facility] Comment on above: Performed By: #### B BURR BENCH OPERATOR, CMP, HSTROPN #### [facility] [address] [place] [address] Dr. Miah Veloz CO2 [Moles/Vol] 27.7 mmol/L Normal 21.0-32.0 [facility] Comment on above: Performed By: #### B BURR BENCH OPERATOR, CMP, HSTROPN #### [facility] [address] [place] [address] Dr. Miah Veloz Creatinine [Mass/Vol] 1.17 mg/dL Normal 0.70-1.30 [facility] Comment on above: Performed By: #### B BURR BENCH OPERATOR, CMP, HSTROPN #### [facility] [address] [place] [address] Dr. Miah Veloz EGFR-AF AUSTRIAN >60 Normal >=60 [facility] Comment on above: Performed By: #### B BURR BENCH OPERATOR, CMP, HSTROPN #### [facility] [address] [place] [address] Dr. Miha Veloz EGFR-NON AF AUSTRIAN >60 Normal >=60 [facility] Comment on above: Performed By: #### B BURR BENCH OPERATOR, CMP, HSTROPN #### [facility] [address] [place] [address] Dr. Miah Veloz Globulin (S) [Mass/Vol] 3.9 g/dL Normal [facility] Comment on above: Performed By: #### B BURR BENCH OPERATOR, CMP, HSTROPN #### [facility] [address] [place] [address] Dr. Miah Veloz Glucose [Mass/Vol] 138 mg/dL Critically high 74-106 [facility] Comment on above: Performed By: #### B BURR BENCH OPERATOR, CMP, HSTROPN #### [facility] [address] [place] [address] Dr. Miah Veloz Potassium [Moles/Vol] 4.3 mmol/L Normal 3.5-5.1 [facility] Comment on above: Performed By: #### B BURR BENCH OPERATOR, CMP, HSTROPN #### [facility] [address] [place] [address] Dr. Miah Veloz Protein [Mass/Vol] 7.3 g/dL Normal 6.4-8.2 [facility] Comment on above: Performed By: #### B BURR BENCH OPERATOR, CMP, HSTROPN #### [facility] [address] [address] [address] Miah Veloz Sodium [Moles/Vol] 142 mmol/L Normal 136-145 [facility] Comment on above: Performed By: #### B BURR BENCH OPERATOR, CMP, HSTROPN #### [facility] [address] [address] [address] Miah Veloz Urea nitrogen [Mass/Vol] 25.0 mg/dL Critically high 7.0-18 .0 [facility] Comment on above: Performed By: #### B BURR BENCH OPERATOR, CMP, HSTROPN #### [facility] [address] [place] [address] Dr. Miah Veloz Urea nitrogen/Creatinine [Mass ratio] 21.4 mg/mg Normal [facility] Comment on above: Performed By: #### B BURR BENCH OPERATOR, CMP, HSTROPN #### [facility] [address] [address] [address] Miah Veloz US BRANDO DOP LEG [...] MURPHY GRIFFIN Date: 2022-05-14 16:51 Normal [facility] CBC AUTO DIFFon 04-28-2022 BASO # 0.1 103/ul Normal 0.0-0.[address] [facility] Comment on above: Performed By: #### C BC #### [facility] [address] [place] [address] Dr. Miah Veloz Basophils/100 WBC (Bld) 0.7 % Normal 0.2-2.0 [facility] Comment on above: Performed By: #### C BC #### [facility] [address] [place] [address] Dr. Miah Veloz EO # 0.2 103/ul Normal 0.0-0.[address] [facility] Comment on above: Performed By: #### C BC #### [facility] [address] [place] [address] Dr. Miah Veloz Eosinophils/100 WBC (Bld) 2.9 % Normal 0.9-7.0 [facility] Comment on above: Performed By: #### C BC #### [facility] [address] [place] [address] Dr. Miah Veloz Erythrocyte distribution wid th (RBC) [Ratio] 13.2 % Normal 11.0-15.0 [facility] Comment on above: Performed By: #### C BC #### [facility] [address] [place] [address] Dr. Miah Veloz Hematocrit (Bld) [Volume fraction] 36.9 % Critically low 42.0-54.0 [facility] Comment on above: Performed By: #### C BC #### [facility] [address] [place] [address] Dr. Miah Veloz Hemoglobin (Bld) [Mass/Vol] 12.4 g/dL Critically low 14.0 -18.0 [facility] Comment on above: Performed By: #### C BC #### [facility] [address] [place] [address] Dr. Miah Veloz IG # 0.03 10e3/ul Normal 0.00-0.03 [facility] Comment on above: Performed By: #### C BC #### [facility] [address] [place] [address] Dr. Miah Veloz IG % 0.4 % Normal 0.0-0.[address] [facility] Comment on above: Performed By: #### C BC #### [facility] [address] [address] [address] Miah Veloz LYMPH # 1.8 103/ul Normal 1.2-3.8 [facility] Comment on above: Performed By: #### C BC #### [facility] [address] [place] [address] Dr. Miah Veloz Lymphocytes/100 WBC (Bld) 23.0 % Normal 20.5-60.0 [facility] Comment on above: Performed By: #### C BC #### [facility] [address] [place] [address] Dr. Miah Veloz MANUAL DIFF REQ NO Normal [facility] Comment on above: Performed By: #### C BC #### [facility] [address] [place] [address] Dr. Miah Veloz MCH (RBC) [Entitic mass] 32.3 pg Normal 25.9-34.0 [facility] Comment on above: Performed By: #### C BC #### [facility] [address] [place] [address] Dr. Miah Veloz MCHC (RBC) [Mass/Vol] 33.6 g/dL Normal 29.9-35.2 [facility] Comment on above: Performed By: #### C BC #### [facility] [address] [place] [address] Dr. Miah Veloz MCV (RBC) [Entitic vol] 96.1 fL Critically high 80.0-94 .0 [facility] Comment on above: Performed By: #### C BC #### [facility] [address] [place] [address] Dr. Miah Veloz MONO # 0.8 103/ul Normal 0.3-0.8 [facility] Comment on above: Performed By: #### C BC #### [facility] [address] [place] [address] Dr. Miah Veloz Monocytes/100 WBC (Bld) 10.2 % Normal 1.7-12.0 [facility] Comment on above: Performed By: #### C BC #### [facility] [address] [address] [address] Miah Veloz NEUT # 4.8 103/ul Normal 1.4-6.[address] [facility] Comment on above: Performed By: #### C BC #### [facility] [address] [address] [address] Miah Veloz Neutrophils/100 WBC (Bld) 62.8 % Normal 43.0-75.0 [facility] Comment on above: Performed By: #### C BC #### [facility] [address] [address] [address] Miah Veloz Platelet mean volume (Bld) [ Entitic vol] 10.2 fL Normal 9.5-13.5 [facility] Comment on above: Performed By: #### C BC #### [facility] [address] [address] [address] Miah Veloz PLT 224 103/ul Normal 150-[address] [facility] Comment on above: Performed By: #### C BC #### [facility] [address] [address] [address] Miah Veloz RBC 3.84 106/ul Critically low 4.70-6.10 [facility] Comment on above: Performed By: #### C BC #### [facility] [address] [address] [address] Miah Veloz WBC 7.7 103/ul Normal 4.0-11.[address] [facility] Comment on above: Performed By: #### C BC #### [facility] [address] [address] [address] Miah Veloz PROF CHEM 8 (BAS METB)on Anion gap [Moles/Vol] 14.4 mmol/L Normal [facility] Comment on above: Performed By: #### B BURR BENCH OPERATOR, CMP, HSTROPN #### [facility] [address] [address] [address] Miah Veloz Calcium [Mass/Vol] 8.3 mg/dL Critically low 8.5-10.1 [facility] Comment on above: Performed By: #### B BURR BENCH OPERATOR, CMP, HSTROPN #### [facility] [address] [address] [address] Miah Veloz Chloride [Moles/Vol] 106 mmol/L Normal 98-107 [facility] Comment on above: Performed By: #### B BURR BENCH OPERATOR, CMP, HSTROPN #### [facility] [address] [address] [address] Miah Veloz CO2 [Moles/Vol] 27.0 mmol/L Normal 21.0-32.0 [facility] Comment on above: Performed By: #### B BURR BENCH OPERATOR, CMP, HSTROPN #### [facility] [address] [place] [address] Dr. Miah Veloz Creatinine [Mass/Vol] 1.12 mg/dL Normal 0.70-1.30 [facility] Comment on above: Performed By: #### B BURR BENCH OPERATOR, CMP, HSTROPN #### [facility] [address] [place] [address] Dr. Miah Veloz EGFR-AF AUSTRIAN >60 Normal >=60 [facility] Comment on above: Performed By: #### B BURR BENCH OPERATOR, CMP, HSTROPN #### [facility] [address] [place] [address] Dr. Miah Veloz EGFR-NON AF AUSTRIAN >60 Normal >=60 [facility] Comment on above: Performed By: #### B BURR BENCH OPERATOR, CMP, HSTROPN #### [facility] [address] [place] [address] Dr. Miah Veloz Glucose [Mass/Vol] 103 mg/dL Normal 74-106 [facility] Comment on above: Performed By: #### B BURR BENCH OPERATOR, CMP, HSTROPN #### [facility] [address] [address] [address] Miah Veloz Potassium [Moles/Vol] 3.4 mmol/L Critically low 3.5-5.1 [facility] Comment on above: Performed By: #### B BURR BENCH OPERATOR, CMP, HSTROPN #### [facility] [address] [place] [address] Dr. Miah Veloz Sodium [Moles/Vol] 144 mmol/L Normal 136-145 [facility] Comment on above: Performed By: #### B BURR BENCH OPERATOR, CMP, HSTROPN #### [facility] [address] [place] [address] Dr. Miah Veloz Urea nitrogen [Mass/Vol] 21.0 mg/dL Critically high 7.0-18 .0 [facility] Comment on above: Performed By: #### B BURR BENCH OPERATOR, CMP, HSTROPN #### [facility] [address] [place] [address] Dr. Miah Veloz Urea nitrogen/Creatinine [Mass ratio] 18.8 mg/mg Normal [facility] Comment on above: Performed By: #### B BURR BENCH OPERATOR, CMP, HSTROPN #### [facility] [address] [place] [address] Dr. Miah Veloz CBC AUTO DIFFon 04-27-2022 BASO # 0.0 103/ul Normal 0.0-0.1 [facility] Comment on above: Performed By: #### B BURR BENCH OPERATOR, CMP, HSTROPN #### [facility] [address] [place] [address] Dr. Miah Veloz Basophils/100 WBC (Bld) 0.4 % Normal 0.2-2.0 [facility] Comment on above: Performed By: #### B BURR BENCH OPERATOR, CMP, HSTROPN #### [facility] [address] [place] [address] Dr. Miah Veloz EO # 0.2 103/ul Normal 0.0-0.7 [facility] Comment on above: Performed By: #### B BURR BENCH OPERATOR, CMP, HSTROPN #### [facility] [address] [place] [address] Dr. Miah Veloz Eosinophils/100 WBC (Bld) 3.2 % Normal 0.9-7.0 [facility] Comment on above: Performed By: #### B BURR BENCH OPERATOR, CMP, HSTROPN #### [facility] [address] [place] [address] Dr. Miah Veloz Erythrocyte distribution wid th (RBC) [Ratio] 13.6 % Normal 11.0-15.0 [facility] Comment on above: Performed By: #### B BURR BENCH OPERATOR, CMP, HSTROPN #### [facility] [address] [place] [address] Dr. Miah Veloz Hematocrit (Bld) [Volume fraction] 36.7 % Critically low 42.0-54.0 [facility] Comment on above: Performed By: #### B BURR BENCH OPERATOR, CMP, HSTROPN #### [facility] [address] [place] [address] Dr. Miah Veloz Hemoglobin (Bld) [Mass/Vol] 12.0 g/dL Critically low 14.0 -18.0 [facility] Comment on above: Performed By: #### B BURR BENCH OPERATOR, CMP, HSTROPN #### [facility] [address] [place] [address] Dr. Miah Veloz IG # 0.02 10e3/ul Normal 0.00-0.03 [facility] Comment on above: Performed By: #### B BURR BENCH OPERATOR, CMP, HSTROPN #### [facility] [address] [place] [address] Dr. Miah Veloz IG % 0.3 % Normal 0.0-0.[address] [facility] Comment on above: Performed By: #### B BURR BENCH OPERATOR, CMP, HSTROPN #### [facility] [address] [place] [address] Dr. Miah Veloz LYMPH # 1.6 103/ul Normal 1.2-3.[address] [facility] Comment on above: Performed By: #### B BURR BENCH OPERATOR, CMP, HSTROPN #### [facility] [address] [place] [address] Dr. Miah Veloz Lymphocytes/100 WBC (Bld) 22.2 % Normal 20.5-60.0 [facility] Comment on above: Performed By: #### B BURR BENCH OPERATOR, CMP, HSTROPN #### [facility] [address] [place], [place] [id number] Dr. Miah Veloz MANUAL DIFF REQ NO Normal [facility] Comment on above: Performed By: #### B BURR BENCH OPERATOR, CMP, HSTROPN #### [facility] [address] [place] [address] Dr. Miah Veloz MCH (RBC) [Entitic mass] 32.3 pg Normal 25.9-34.0 [facility] Comment on above: Performed By: #### B BURR BENCH OPERATOR, CMP, HSTROPN #### [facility] [address] [place] [address] Dr. Miah Veloz MCHC (RBC) [Mass/Vol] 32.7 g/dL Normal 29.9-35.2 [facility] Comment on above: Performed By: #### B BURR BENCH OPERATOR, CMP, HSTROPN #### [facility] [address] [place] [address] Dr. Miah Veloz MCV (RBC) [Entitic vol] 98.7 fL Critically high 80.0-94 .0 [facility] Comment on above: Performed By: #### B BURR BENCH OPERATOR, CMP, HSTROPN #### [facility] [address] [place] [address] Dr. Miah Veloz MONO # 0.7 103/ul Normal 0.3-0.[address] [facility] Comment on above: Performed By: #### B BURR BENCH OPERATOR, CMP, HSTROPN #### [facility] [address] [place] [address] Dr. Miah Veloz Monocytes/100 WBC (Bld) 9.1 % Normal 1.7-12.0 [facility] Comment on above: Performed By: #### B BURR BENCH OPERATOR, CMP, HSTROPN #### [facility] [address] [place] [address] Dr. Miah Veloz NEUT # 4.6 103/ul Normal 1.4-6.[address] [facility] Comment on above: Performed By: #### B BURR BENCH OPERATOR, CMP, HSTROPN #### [facility] [address] [place] [address] Dr. Miah Veloz Neutrophils/100 WBC (Bld) 64.8 % Normal 43.0-75.0 [facility] Comment on above: Performed By: #### B BURR BENCH OPERATOR, CMP, HSTROPN #### [facility] [address] [place] [address] Dr. Miah Veloz Platelet mean volume (Bld) [ Entitic vol] 10.2 fL Normal 9.5-13.5 [facility] Comment on above: Performed By: #### B BURR BENCH OPERATOR, CMP, HSTROPN #### [facility] [address] [place] [address] Dr. Miah Veloz PLT 200 103/ul Normal 150-[address] [facility] Comment on above: Performed By: #### B BURR BENCH OPERATOR, CMP, HSTROPN #### [facility] [address] [place] [address] Dr. Miah Veloz RBC 3.72 106/ul Critically low 4.70-6.10 [facility] Comment on above: Performed By: #### B BURR BENCH OPERATOR, CMP, HSTROPN #### [facility] [address] [place] [address] Dr. Miah Veloz WBC 7.1 103/ul Normal 4.0-11.0 [facility] Comment on above: Performed By: #### B BURR BENCH OPERATOR, CMP, HSTROPN #### [facility] [address] [place] [address] Dr. Miah Veloz ECHOCARDIO M/2D COMPLETEon 0 04-27-2022 ECHOCARDIO M/2D COMPLETE Patient: GARRY STREETER Exam Date: 04/27/2022 : 1955 Gender:M Ordering : DR ANDREI ORONA . Admission #: [id number] Family : Order #: [id number] CLICK HERE TO VIEW EXAM ECHOCARDIOGRAM REPORT [...] Area(A4C): 22.40 cm2 Left Atrium Systolic Volume(A2C): 31930 mm3 Left Atrium Systolic Volume(A4C): 95219 mm3 Mitral Valve Mitral Valve E-Wave Peak [...] Palacios M.D. on 04/27/2022 at 16:58 Normal [facility] PROF CHEM 8 (BAS METB)on Anion gap [Moles/Vol] 13.3 mmol/L Normal [facility] Comment on above: Performed By: #### B MP #### [facility] [address] [place] [address] Dr. Miah Veloz Calcium [Mass/Vol] 8.2 mg/dL Critically low 8.5-10.1 [facility] Comment on above: Performed By: #### B MP #### [facility] [address] [place] [address] Dr. Miah Veloz Chloride [Moles/Vol] 107 mmol/L Normal 98-107 [facility] Comment on above: Performed By: #### B MP #### [facility] [address] [place] [address] Dr. Miah Veloz CO2 [Moles/Vol] 27.5 mmol/L Normal 21.0-32.0 [facility] Comment on above: Performed By: #### B MP #### [facility] [address] [place] [address] Dr. Miah Veloz Creatinine [Mass/Vol] 0.97 mg/dL Normal 0.70-1.30 [facility] Comment on above: Performed By: #### B MP #### [facility] [address] [place] [address] Dr. Miah Veloz EGFR-AF AUSTRIAN >60 Normal >=60 [facility] Comment on above: Performed By: #### B MP #### [facility] [address] [place] [address] Dr. Miah Veloz EGFR-NON AF AUSTRIAN >60 Normal >=60 [facility] Comment on above: Performed By: #### B MP #### [facility] [address] [place] [address] Dr. Miah Veloz Glucose [Mass/Vol] 102 mg/dL Normal 74-106 [facility] Comment on above: Performed By: #### B MP #### [facility] [address] [address] [address] Miah Veloz Potassium [Moles/Vol] 3.8 mmol/L Normal 3.5-5.1 [facility] Comment on above: Performed By: #### B MP #### [facility] [address] [place] [address] Dr. Miah Veloz Sodium [Moles/Vol] 144 mmol/L Normal 136-145 [facility] Comment on above: Performed By: #### B MP #### [facility] [address] [place] [address] Dr. Miah Veloz Urea nitrogen [Mass/Vol] 17.0 mg/dL Normal 7.0-18.0 [facility] Comment on above: Performed By: #### B MP #### [facility] [address] [place] [address] Dr. Miah Veloz Urea nitrogen/Creatinine [Mass ratio] 17.5 mg/mg Normal [facility] Comment on above: Performed By: #### B MP #### [facility] [address] [place] [address] Dr. Miah Veloz BNPon 04-26-2022 Natriuretic peptide B (Bld) [Mass/Vol] 1105.0 pg/mL Critically high <=900.0 [facility] Comment on above: Performed By: #### B BURR BENCH OPERATOR, CMP, HSTROPN #### [facility] [address] [place] [address] Dr. Miah Veloz CBC AUTO DIFFon 04-26-2022 BASO # 0.0 103/ul Normal 0.0-0.[address] [facility] Comment on above: Performed By: #### C BC #### [facility] [address] [place] [address] Dr. Miah Veloz Basophils/100 WBC (Bld) 0.6 % Normal 0.2-2.0 [facility] Comment on above: Performed By: #### C BC #### [facility] [address] [place] [address] Dr. Miah Veloz EO # 0.2 103/ul Normal 0.0-0.[address] [facility] Comment on above: Performed By: #### C BC #### [facility] [address] [place] [address] Dr. Miah Veloz Eosinophils/100 WBC (Bld) 2.1 % Normal 0.9-7.0 [facility] Comment on above: Performed By: #### C BC #### [facility] [address] [place] [address] Dr. Miah Veloz Erythrocyte distribution wid th (RBC) [Ratio] 13.7 % Normal 11.0-15.0 [facility] Comment on above: Performed By: #### C BC #### [facility] [address] [place] [address] Dr. Miah Veloz Hematocrit (Bld) [Volume fraction] 39.3 % Critically low 42.0-54.0 [facility] Comment on above: Performed By: #### C BC #### [facility] [address] [place] [address] Dr. Miah Veloz Hemoglobin (Bld) [Mass/Vol] 13.0 g/dL Critically low 14.0 -18.0 [facility] Comment on above: Performed By: #### C BC #### [facility] [address] [place] [address] Dr. Miah Veloz IG # 0.02 10e3/ul Normal 0.00-0.03 [facility] Comment on above: Performed By: #### C BC #### [facility] [address] [place] [address] Dr. Miah Veloz IG % 0.3 % Normal 0.0-0.[address] [facility] Comment on above: Performed By: #### C BC #### [facility] [address] [address] [address] Miah Veloz LYMPH # 1.1 103/ul Critically low 1.2-3.8 [facility] Comment on above: Performed By: #### C BC #### [facility] [address] [address] [address] Miah Veloz Lymphocytes/100 WBC (Bld) 16.1 % Critically low 20.5-6 0.0 [facility] Comment on above: Performed By: #### C BC #### [facility] [address] [address] [address] Miah Veloz MANUAL DIFF REQ NO Normal [facility] Comment on above: Performed By: #### C BC #### [facility] [address] [place] [address] Dr. Miah Veloz MCH (RBC) [Entitic mass] 32.7 pg Normal 25.9-34.0 [facility] Comment on above: Performed By: #### C BC #### [facility] [address] [address] [address] Miah Veloz MCHC (RBC) [Mass/Vol] 33.1 g/dL Normal 29.9-35.2 [facility] Comment on above: Performed By: #### C BC #### [facility] [address] [place] [address] Dr. Miah Veloz MCV (RBC) [Entitic vol] 98.7 fL Critically high 80.0-94 .0 [facility] Comment on above: Performed By: #### C BC #### [facility] [address] [address] [address] Miah Veloz MONO # 0.5 103/ul Normal 0.3-0.8 [facility] Comment on above: Performed By: #### C BC #### [facility] [address] [address] [address] Miah Velzo Monocytes/100 WBC (Bld) 7.6 % Normal 1.7-12.0 [facility] Comment on above: Performed By: #### C BC #### [facility] [address] [place] [address] Dr. Miah Veloz NEUT # 5.2 103/ul Normal 1.4-6.[address] [facility] Comment on above: Performed By: #### C BC #### [facility] [address] [address] [address] Miah Veloz Neutrophils/100 WBC (Bld) 73.3 % Normal 43.0-75.0 [facility] Comment on above: Performed By: #### C BC #### [facility] [address] [address] [address] Miah Veloz Platelet mean volume (Bld) [ Entitic vol] 10.7 fL Normal 9.5-13.5 [facility] Comment on above: Performed By: #### C BC #### [facility] [address] [place] [address] Dr. Miah Veloz PLT 200 103/ul Normal 150-[address] [facility] Comment on above: Performed By: #### C BC #### [facility] [address] [place] [address] Dr. Miah Veloz RBC 3.98 106/ul Critically low 4.70-6.10 [facility] Comment on above: Performed By: #### C BC #### [facility] [address] [place] [address] Dr. Miah Veloz WBC 7.1 103/ul Normal 4.0-11.[address] [facility] Comment on above: Performed By: #### C BC #### [facility] [address] [place] [address] Dr. Miah Veloz CTA CHEST WO W [...] NICK CABRALES Date: 2022-04-26 10:50 Normal [facility] Covid-19 PCR (CVDTB)on SARS-CoV-2 (COVID-19) RNA GÓMEZ+probe Ql (Unsp spec) Not detected Normal NOT DETECTED [facility] Comment on above: Result Comment: [...] for this test is supported by the [place] of Health and Human Service's declaration that [...] longer be used). Performed By: #### B BURR BENCH OPERATOR, CMP, HSTROPN #### [facility] [address] [place] [address] Dr. Miah Veloz PROF 14(COMP METB)on 022 Albumin [Mass/Vol] 3.1 g/dL Critically low 3.4-5.0 [facility] Comment on above: Performed By: #### B BURR BENCH OPERATOR, CMP, HSTROPN #### [facility] [address] [place] [address] Dr. Miah Veloz Albumin/Globulin [Mass ratio] 0.9 {ratio} Normal [facility] Comment on above: Performed By: #### B BURR BENCH OPERATOR, CMP, HSTROPN #### [facility] [address] [place] [address] Dr. Miah Veloz ALP [Catalytic activity/Vol] 54 U/L Normal 46-116 [facility] Comment on above: Performed By: #### B BURR BENCH OPERATOR, CMP, HSTROPN #### [facility] [address] [place] [address] Dr. Miah Veloz ALT [Catalytic activity/Vol] 63 U/L Normal 16-63 [facility] Comment on above: Performed By: #### B BURR BENCH OPERATOR, CMP, HSTROPN #### [facility] [address] [place] [address] Dr. Miah Veloz Anion gap [Moles/Vol] 13.9 mmol/L Normal [facility] Comment on above: Performed By: #### B BURR BENCH OPERATOR, CMP, HSTROPN #### [facility] [address] [place] [address] Dr. Miah Veloz AST [Catalytic activity/Vol] 32 U/L Normal 15-37 [facility] Comment on above: Performed By: #### B BURR BENCH OPERATOR, CMP, HSTROPN #### [facility] [address] [place] [address] Dr. Miah Veloz Calcium [Mass/Vol] 8.7 mg/dL Normal 8.5-10.1 [facility] Comment on above: Performed By: #### B BURR BENCH OPERATOR, CMP, HSTROPN #### [facility] [address] [place] [address] Dr. Miah Veloz Chloride [Moles/Vol] 108 mmol/L Critically high 98-107 [facility] Comment on above: Performed By: #### B BURR BENCH OPERATOR, CMP, HSTROPN #### [facility] [address] [place] [address] Dr. Miah Veloz CO2 [Moles/Vol] 24.3 mmol/L Normal 21.0-32.0 [facility] Comment on above: Performed By: #### B BURR BENCH OPERATOR, CMP, HSTROPN #### [facility] [address] [place] [address] Dr. Miah Veloz Creatinine [Mass/Vol] 0.90 mg/dL Normal 0.70-1.30 [facility] Comment on above: Performed By: #### B BURR BENCH OPERATOR, CMP, HSTROPN #### [facility] [address] [place] [address] Dr. Miah Veloz EGFR-AF AUSTRIAN >60 Normal >=60 [facility] Comment on above: Performed By: #### B BURR BENCH OPERATOR, CMP, HSTROPN #### [facility] [address] [place] [address] Dr. Miah Veloz EGFR-NON AF AUSTRIAN >60 Normal >=60 [facility] Comment on above: Performed By: #### B BURR BENCH OPERATOR, CMP, HSTROPN #### [facility] [address] [place] [address] Dr. Miah Veloz Globulin (S) [Mass/Vol] 3.6 g/dL Normal [facility] Comment on above: Performed By: #### B BURR BENCH OPERATOR, CMP, HSTROPN #### [facility] [address] [place] [address] Dr. Miah Veloz Glucose [Mass/Vol] 146 mg/dL Critically high 74-106 [facility] Comment on above: Performed By: #### B BURR BENCH OPERATOR, CMP, HSTROPN #### [facility] [address] [place] [address] Dr. Miah Veloz Potassium [Moles/Vol] 4.2 mmol/L Normal 3.5-5.1 [facility] Comment on above: Performed By: #### B BURR BENCH OPERATOR, CMP, HSTROPN #### [facility] [address] [place] [address] Dr. Miah Veloz Protein [Mass/Vol] 6.7 g/dL Normal 6.4-8.2 [facility] Comment on above: Performed By: #### B BURR BENCH OPERATOR, CMP, HSTROPN #### [facility] [address] [place] [address] Dr. Miah Veloz Sodium [Moles/Vol] 142 mmol/L Normal 136-145 [facility] Comment on above: Performed By: #### B BURR BENCH OPERATOR, CMP, HSTROPN #### [facility] [address] [place] [address] Dr. Miah Veloz Urea nitrogen [Mass/Vol] 19.0 mg/dL Critically high 7.0-18 .0 [facility] Comment on above: Performed By: #### B BURR BENCH OPERATOR, CMP, HSTROPN #### [facility] [address] [place] [address] Dr. Miah Veloz Urea nitrogen/Creatinine [Mass ratio] 21.1 mg/mg Normal [facility] Comment on above: Performed By: #### B BURR BENCH OPERATOR, CMP, HSTROPN #### [facility] [address] [place] [address] Dr. Miah Veloz PROTIMEon 04-26-2022 INR Coag (PPP) [Relative time] 1.20 {INR} Normal [facility] Comment on above: Performed By: #### B BURR BENCH OPERATOR, CMP, HSTROPN #### [facility] [address] [place] [address] Dr. Miah Veloz INR GUIDELINES SEE BELOW Normal [facility] Comment on above: Result Comment: JENNIFER RED INR: 2.0 - 3.0 CONDITIONS NOT LISTED BELOW 2.5 - 3.5 FOR PROSTHETIC HEART VALVE REPLACEMENT 2.5 - 3.5 RECURRENT THROMBOSIS Performed By: #### B BURR BENCH OPERATOR, CMP, HSTROPN #### [facility] [address] [place] [address] Dr. Miah Veloz PT Coag (PPP) [Time] 12.8 s Critically high 9.0-11.6 [facility] Comment on above: Performed By: #### B BURR BENCH OPERATOR, CMP, HSTROPN #### [facility] [address] [place], [place] [address] Dr. Miah Veloz PTTon 04-26-2022 aPTT Coag (Bld) [Time] 28.5 s Normal 22.3-36.2 [facility] Comment on above: Performed By: #### B BURR BENCH OPERATOR, CMP, HSTROPN #### [facility] [address] [place], [place] [address] Dr. Miah Veloz TROPONIN, HIGH SENSITIVITYon 04-26-2022 HSTROP 24.7 pg/mL Normal 4.0-76.1 [facility] Comment on above: Result Comment: CUT- OFF POINTS HAVE BEEN ESTABLISHED BASED ON THE FOURTH UNIVERSAL DEFINITIONS OF MYOCARDIAL INFARCTION. THE UPPER REFERENCE LIMIT (URL) OF TROPONIN, DEFINED THE 99TH PERCENTILE OF cTnI DISTRIBUTION IN A REFERENCE POPULATION, HAS BEEN CONFIRMED THE DECISION THRESHOLD FOR WA DIAGNOSIS. Performed By: #### B BURR BENCH OPERATOR, CMP, HSTROPN #### [facility] [address] [place] [address] [address] Miah Veloz Encounters Encounter Date Encounter Type Care Provider Facility Start: 10-22-2023 End: 10-22-2023 ambulatory [facility] [place] [facility] Start: 08-30-2023 End: 08-30-2023 ambulatory MARTIN SPENCER [facility] Start: 03-22-2023 End: 03-22-2023 ambulatory [facility] Start: 03-01-2023 End: 03-02-2023 ambulatory SARAH RAMIREZ Facility:[facility] Start: 02-03-2023 End: 02-03-2023 ambulatory SARAH RAMIREZ [facility] Start: 01-15-2023 End: 01-16-2023 ambulatory LUZMA PHAM Facility:[facility] Start: 10-31-2022 Encounter for preprocedural laboratory examination DR [place] . [facility] Start: 10-28-2022 End: 10-29-2022 ambulatory [place]AVIA [place] Facility:[facility] Start: 10-28-2022 End: 10-28-[address] [place] . Facility:[facility] Start: 10-24-2022 End: 10-25-[address] [place] . Facility:[facility] Start: 10-24-2022 End: 10-25-2022 Encounter for preprocedural laboratory examination DR [place] . Facility:[facility] Start: 08-12-2022 Encounter for other preprocedural examination TACHO HOLLAND [facility] Start: 08-10-2022 End: 08-11-2022 ambulatory LEANDROBARPatience PRADEEPSYLVIABARBARA Facility:[facility] Start: 08-10-2022 End: 08-11-2022 Encounter for other preprocedural examination TACHO HOLLAND Facility:[facility] Start: 08-05-2022 End: 08-06-2022 ambulatory TACHO HOLLAND Facility:[facility] Start: 05-14-2022 End: 05-15-[address] DOCTOR FREED Facility:[facility] Start: 04-26-2022 End: 04-28-2022 Evaluation and management of inpatient [facility] Facility:[facility] Procedures Date Procedure Procedure Detail Performing Clinician Start: 03-22-2023 Follow-up visit Follow-up TACHO HOLLAND Payers Date Payer Category Payer Medicare [id number] 1961 Unknown [id number] 1955 Unknown [id number] .16.84 [id number] 1955 Unknown [id number] .. [id number] 1955 Unknown [id number] ..[id number] 1955 Unknown [id number] ..[id number] 1953 Unknown [id number] ..[id number] 1953 Unknown [id number] ..[id number] 1953 Unknown [id number] 2..84 [id number] 1955 Unknown [id number] 2.16.84 [id number] 1955 Unknown [id number] 2.16.84 [id number] Clinical Notes 04-26-2022 to 10-22-2023 Note Date & Type Note Facility 10-22-2023 Note Patient here for [facility] for afib w/ RVR. He was sent [...] All other systems reviewed and are negative. [facility] 08-30-2023 Note [facility]TP CARDIOLOGY PROGR ESS NOTE HPI: Garry Streeter is a 68 y.o. male past medical history of heart failure improved ejection fraction, paroxysmal atrial fibrillation, hypertension, and valvular heart disease seen in follow-up. Update: 03/22/2023 Pt is here for med check F/U for [facility] pt states he stopped taking some [...] Conclusions: Biphasic cardio (more content not included)... [facility] 08-30-2023 Note Patient here for 6 [...] All other systems reviewed and are negative. [facility] 03-22-2023 Note UTP CARDIOLOGY PROGR ESS [...] normal. Mild aor (more content not included)... [facility] 02-03-2023 Note No edema today [facility] 02-03-2023 Note Stable [facility] 02-03-2023 Note EKG today-Sinus manny ycardia with PACs/PVCs- And artifact, Otherwise normal EKG He is adamant he is still taking Eliquis anticoagulation, Pharmacy denies that he is filled Eliquis or metoprolol in the last 6 months. Discussed with patient risk for stroke with paroxysmal atrial fib- He states he has cardia Monitor at home and he has not had any A-fib [facility] 02-03-2023 Note [facility] I-II Currently appears [...] Staff To obtain recent labs from PCP [facility] 02-03-2023 Note UTP CARDIOLOGY PROGR ESS NOTE HPI: Garry Streeter is a 67 y.o. male here for Med Refill, Atrial Fibrillation, and Congestive Heart Failure Known h/o Chronic systolic heart failure, Paroxysmal atrial fib, edema, and noncompliance to med regimen. Pt is here for med check F/U for [facility] pt states he stopped taking some [...] this time. Staff called pharmacy- [facility] and patient states this is his only [...] Right ventricular syst (more content not included)... [facility] 02-03-2023 Note Pt is here for med c heck F/U [facility] pt states he stop take some of his meds due to having Diarrhea more then 3 times a day pt also stated he was having problems walking due to gout. Review of Systems Gastrointestinal: Positive for diarrhea. All other systems reviewed and are negative. [facility] 04-26-2022 Note PROCEDURE: XR KNEE L T 4V or > COMPARISON: None. HISTORY: Swelling FINDINGS: BONES:No fracture, acute abnormality, or significant arthropathy. SOFT TISSUES:Negative. No visible soft tissue swelling. EFFUSION:Moderate suprapatellar joint effusion OTHER: Negative. IMPRESSION: Moderate joint effusion Electronically authenticated by: NICK CABRALES Date: 2022-04-26 10:09 [facility] Summary Purpose Family History No Family History Records FoundNo Family History Records FoundNo Family History Records Found Advance Directives No Advanced Directives Records FoundNo Advanced Directives Records FoundNo Advanced Directives Records Found Additional Source Comments (unrecognized sect ion and content) No Status Records FoundNo Status Records FoundNo Status Records Found INFORMATION SOURCE (unrecogn ized section and content) DATE CREATED AUTHOR 10/30/2022 [facility] DATE CREATED AUTHOR AUTHOR'S ORGANIZ ATION 03/17/2023 [facility] DATE CREATED AUTHOR AUTHOR'S ORGANIZ ATION 11/07/2023 [facility] FOR RECORDS PERTAINING TO PATIENTS WHO [...] BE BASED ON THE PRIMARY CLINICAL RECORDS. [employer] [facility]. provides no warranty or guarantee of the accuracy or completeness of information in this document.
--- OUTSIDE RECORDS SUMMARY | 2023-11-09 20:12 | XMS_ITS | CCD ---
Author Name Unknown Address [address] [place] [address] Organization [facility] Care Team Providers Care Tracer Clerk Name Role Phone TAVIA [place] Attending Unavailable [...] Acetaminophen; Translations: [ACETAMINOPHEN] Drug Allergy 09-15-2022 [facility] Repository Problems Active Problems Problem Classification Problem [...] Da te Episodic/Chronic Other aftercare (1 source) assisted (current) use of anticoagulants; Translations: [PRISON CURRNT USE ANTICOAGULANTS] Onset: 11-01-2022 Episodic Other [...] on it so should be fine Normal [facility] Telephoneon 11-04-2023 Telephone [id number] Ben Streeter W 1955 M Date Provider Department Center 11/04/2023 MONICA BARRIENTOS CARD [facility] Family History Problem Relation Age of Onset Colon cancer Brother Family Status - Relation Status Age at Brother Normal [facility] Office Visiton 08-30-2023 Follow-up visit [id number] Ben Streeter rt W 1955 M Date Provider Department Center 08/30/2023 [id number] SPENCER [facility] Esha Champion Family History Problem Relation Age of Onset Colon cancer Brother Family Status - Relation Status Age at Brother Level of Service:01662 [place] OFFICE/OUTPATIENT ESTABLISHED MOD MDM 30-39 MIN Normal [facility] Office Visiton 03-22-2023 Follow-up visit [id number] Ben Streeter rt W 1955 M Date Provider Department Center 03/22/2023 [id number] LEANDROSHRADDHA [facility] Family History Problem Relation Age of Onset Colon cancer Brother Family Status - Relation Status Age at Brother Level of Service:29653 [place] OFFICE/OUTPATIENT ESTABLISHED MOD MDM 30-39 MIN Reason for Visit and Comments: Follow-up [550183] - f/u echo Normal [facility] ECHOCARDIO M/2D COMPLETEon 0 03-01-2023 ECHOCARDIO M/2D COMPLETE Patient: GARRY STREETER Exam Date: 03/01/2023 : 1955 Gender:M Ordering : SARAH RAMIREZ Admission #: [id number] Family : WARREN JOYNER CAR SEAT MAKER-C Order #: [id number] CLICK HERE TO VIEW EXAM ECHOCARDIOGRAM REPORT [...] Baumann M.D. on 03/01/2023 at 09:21 Normal [facility] Office Visiton 02-03-2023 Follow-up visit [id number] Ben Streeter rt W 1955 M Date Provider Department Center 02/03/2023 SARAH KHAN [facility] Family History Problem Relation Age of Onset Colon cancer Brother Family Status - Relation Status Age at Brother Level of Service:63086 [place] OFFICE/OUTPATIENT ESTABLISHED MOD MDM 30-39 MIN Reason for Visit and Comments: Med Refill [217693] Atrial Fibrillation [80] Congestive Heart Failure [127] Normal [facility] BNPon 01-15-2023 Natriuretic peptide B (Bld) [Mass/Vol] 20.0 pg/mL Normal <=900.0 [facility] Comment on above: Performed By: #### B CAR SEAT MAKER, MG, CMP #### [facility] [address] [place] [address] Dr. Miah Veloz HEMOGRAM AND PLATELon 2022 Hematocrit (Bld) [Volume fraction] 41.3 % Critically low 42.0-54.0 [facility] Comment on above: Performed By: #### B CAR SEAT MAKER, CMP, HSTROPN #### [facility] [address] [place] [address] Dr. Miah Veloz Hemoglobin (Bld) [Mass/Vol] 14.2 g/dL Normal 14.0-18. 0 [facility] Comment on above: Performed By: #### B CAR SEAT MAKER, CMP, HSTROPN #### [facility] [address] [address] [address] Miah Veloz MCH (RBC) [Entitic mass] 31.5 pg Normal 25.9-34.0 [facility] Comment on above: Performed By: #### B CAR SEAT MAKER, CMP, HSTROPN #### [facility] [address] [place] [address] Dr. Miah Veloz MCHC (RBC) [Mass/Vol] 34.4 g/dL Normal 29.9-35.2 [facility] Comment on above: Performed By: #### B CAR SEAT MAKER, CMP, HSTROPN #### [facility] [address] [place] [address] Dr. Miah Veloz MCV (RBC) [Entitic vol] 91.6 fL Normal 80.0-94.0 [facility] Comment on above: Performed By: #### B CAR SEAT MAKER, CMP, HSTROPN #### [facility] [address] [place] [address] Dr. Miha Veloz PLT 173 103/ul Normal 150-450 [facility] Comment on above: Performed By: #### B CAR SEAT MAKER, CMP, HSTROPN #### [facility] [address] [place] [address] Dr. iMah Veloz RBC 4.51 106/ul Critically low 4.70-6.10 [facility] Comment on above: Performed By: #### B CAR SEAT MAKER, CMP, HSTROPN #### [facility] [address] [place] [address] Dr. Miah Veloz WBC 5.8 103/ul Normal 4.0-11.0 [facility] Comment on above: Performed By: #### B CAR SEAT MAKER, CMP, HSTROPN #### [facility] [address] [place] [address] Dr. Miah Veloz MAGNESIUMon 01-15-2023 Magnesium [Mass/Vol] 1.9 mg/dL Normal 1.8-2.4 [facility] Comment on above: Performed By: #### B CAR SEAT MAKER, MG, CMP #### [facility] [address] [place] [address] Dr. Miah Veloz PROF 14(COMP METB)on 023 Albumin [Mass/Vol] 3.8 g/dL Normal 3.4-5.0 [facility] Comment on above: Performed By: #### B CAR SEAT MAKER, MG, CMP #### [facility] [address] [place] [address] Dr. Miah Veloz Albumin/Globulin [Mass ratio] 0.9 {ratio} Normal [facility] Comment on above: Performed By: #### B CAR SEAT MAKER, MG, CMP #### [facility] [address] [place] [address] Dr. Miah Veloz ALP [Catalytic activity/Vol] 86 U/L Normal 46-116 [facility] Comment on above: Performed By: #### B CAR SEAT MAKER, MG, CMP #### [facility] [address] [place] [address] Dr. Miah Veloz ALT [Catalytic activity/Vol] 26 U/L Normal 16-63 [facility] Comment on above: Performed By: #### B CAR SEAT MAKER, MG, CMP #### [facility] [address] [place] [address] Dr. Miah Veloz Anion gap [Moles/Vol] 11.3 mmol/L Normal [facility] Comment on above: Performed By: #### B CAR SEAT MAKER, MG, CMP #### [facility] [address] [place] [address] Dr. Miah Veloz AST [Catalytic activity/Vol] 18 U/L Normal 15-37 [facility] Comment on above: Performed By: #### B CAR SEAT MAKER, MG, CMP #### [facility] [address] [place] [address] Dr. Miah Veloz Bilirubin [Mass/Vol] 0.6 mg/dL Normal 0.2-1.0 [facility] Comment on above: Performed By: #### B CAR SEAT MAKER, MG, CMP #### [facility] [address] [place] [address] Dr. Miah Veloz Calcium [Mass/Vol] 9.4 mg/dL Normal 8.5-10.1 [facility] Comment on above: Performed By: #### B CAR SEAT MAKER, MG, CMP #### [facility] [address] [place] [address] Dr. Miah Veloz Chloride [Moles/Vol] 105 mmol/L Normal 98-107 [facility] Comment on above: Performed By: #### B CAR SEAT MAKER, MG, CMP #### [facility] [address] [place] [address] Dr. Miah Veloz CO2 [Moles/Vol] 30.2 mmol/L Normal 21.0-32.0 [facility] Comment on above: Performed By: #### B CAR SEAT MAKER, MG, CMP #### [facility] [address] [place] [address] Dr. Miah Veloz Creatinine [Mass/Vol] 0.88 mg/dL Normal 0.70-1.30 [facility] Comment on above: Performed By: #### B CAR SEAT MAKER, MG, CMP #### [facility] [address] [place] [address] Dr. Miah Veloz EGFR-AF CYPRIOT >60 Normal >=60 [facility] Comment on above: Performed By: #### B CAR SEAT MAKER, MG, CMP #### [facility] [address] [place] [address] Dr. Miah Veloz EGFR-NON AF CYPRIOT >60 Normal >=60 [facility] Comment on above: Performed By: #### B CAR SEAT MAKER, MG, CMP #### [facility] [address] [place] [address] Dr. Miah Veloz Globulin (S) [Mass/Vol] 4.1 g/dL Normal [facility] Comment on above: Performed By: #### B CAR SEAT MAKER, MG, CMP #### [facility] [address] [place] [address] Dr. Miah Veloz Glucose [Mass/Vol] 98 mg/dL Normal 74-106 [facility] Comment on above: Performed By: #### B CAR SEAT MAKER, MG, CMP #### [facility] [address] [place] [address] Dr. Miah Veloz Potassium [Moles/Vol] 4.5 mmol/L Normal 3.5-5.1 [facility] Comment on above: Performed By: #### B CAR SEAT MAKER, MG, CMP #### [facility] [address] [place] [address] Dr. Miah Veloz Protein [Mass/Vol] 7.9 g/dL Normal 6.4-8.2 [facility] Comment on above: Performed By: #### B CAR SEAT MAKER, MG, CMP #### [facility] [address] [place] [address] Dr. Miah Veloz Sodium [Moles/Vol] 142 mmol/L Normal 136-145 [facility] Comment on above: Performed By: #### B CAR SEAT MAKER, MG, CMP #### [facility] [address] [place] [address] Dr. Miah Veloz Urea nitrogen [Mass/Vol] 15.0 mg/dL Normal 7.0-18.0 [facility] Comment on above: Performed By: #### B CAR SEAT MAKER, MG, CMP #### [facility] [address] [place] [address] Dr. Miah Veloz Urea nitrogen/Creatinine [Mass ratio] 17.0 mg/mg Normal [facility] Comment on above: Performed By: #### B CAR SEAT MAKER, MG, CMP #### [facility] [address] [place] [address] Dr. Miah Veloz XR CHEST 2 Von [...] LUZMA PHAM Date: 2023-01-15 12:47 Normal [facility] SURGICAL PATH REPORTon 10-29 SURGICAL PATH REPORT [facility] Department of Pathology [address] [place] [phone] Name: GARRY STREETER : 1955 Financial [id number] Number: Gender Male Locatio [place] : n: Admit 67 years Attending TAVIA [place] Age: Provider: Ordering TAVIA [place] Provider: Consulti Surgical Pathology Report ng: ACCESSION: COLLECTED DATE/TIME: RECEIVED DATE/TIME: PATHOLOGIST: [id number] 10/28/2022 11:24 EST 10/28/2022 11:24 EST MATT PELAEZ MD Final Diagnosis Report for [facility] [place] (A) SIGMOID POLYP AT 40 CM: [...] ____ Print 10/29/2022 14:17 EST Number: Date/Time: [facility] Department of Pathology [address] [place] [id number] [phone] Name: GARRY STREETER : 1955 Financial [id number] Number: Gender Male Dimas [place]ORJAS [place] : n: Admit 67 years Attending TAVIA [place] Age: Provider: Ordering TAVIA [place] Provider: Mikei Surgical Pathology Report ng: ACCESSION: COLLECTED DATE/TIME: RECEIVED DATE/TIME: PATHOLOGIST: [id number] 10/28/2022 11:24 EST 10/28/2022 11:24 EST MATT PEALEZ MD Gross Description (A) Labeled 40 cm [...] MP/ald 10/28/2022 Tissue pathology report for: [facility], [address] [place] [address]; PATHOLOGY SERVICES PROVIDED BY [facility] (CLIA #[id number]) in cooperation with [facility] at [address] [place] [address] ( CLIA #[id number]) Codes CPT CODE: [id number] ____ Print 10/29/2022 14:17 EST Number: Date/Time: [facility] Comment on above: Performed By: #### [id number] #### [facility] Services [address] [place] [address] Curing Pickling Packer: Matt Pelaez MD [facility]on SARS-CoV-2 (COVID-19) RNA GÓMEZ+probe Ql (Unsp spec) Not detected Normal NOT DETECTED [facility] Comment on above: Result Comment: This test is not yet approved or cleared by the [place] FDA. When there are no FDA-approved or cleared tests available, and other criteria are met, FDA can make tests available under an emergency access mechanism called an Emergency Use Authorization (EUA). The EUA for this test is supported by the [place] of Health and Human Service's (HHS's) declaration [...] SARS-CoV-2. Performed By: #### C VDTBH #### [facility] [address] [place] [address] Dr. Miah Veloz CBC AUTO DIFFon 08-10-2022 BASO # 0.1 103/ul Normal 0.0-0.1 [facility] Comment on above: Performed By: #### B CAR SEAT MAKER, CMP, HSTROPN #### [facility] [address] [address] [address] Miah Veloz Basophils/100 WBC (Bld) 0.7 % Normal 0.2-2.0 [facility] Comment on above: Performed By: #### B CAR SEAT MAKER, CMP, HSTROPN #### [facility] [address] [place] [address] Dr. Miah Veloz EO # 0.4 103/ul Normal 0.0-0.7 [facility] Comment on above: Performed By: #### B CAR SEAT MAKER, CMP, HSTROPN #### [facility] [address] [place] [address] Dr. Miah Veloz Eosinophils/100 WBC (Bld) 4.1 % Normal 0.9-7.0 [facility] Comment on above: Performed By: #### B CAR SEAT MAKER, CMP, HSTROPN #### [facility] [address] [place] [address] Dr. Miah Veloz Erythrocyte distribution wid th (RBC) [Ratio] 16.0 % Critically high 11.0-15.0 [facility] Comment on above: Performed By: #### B CAR SEAT MAKER, CMP, HSTROPN #### [facility] [address] [place] [address] Dr. Miah Veloz Hematocrit (Bld) [Volume fraction] 41.2 % Critically low 42.0-54.0 [facility] Comment on above: Performed By: #### B CAR SEAT MAKER, CMP, HSTROPN #### [facility] [address] [place] [address] Dr. Miah Veloz Hemoglobin (Bld) [Mass/Vol] 14.1 g/dL Normal 14.0-18. 0 [facility] Comment on above: Performed By: #### B CAR SEAT MAKER, CMP, HSTROPN #### [facility] [address] [place] [address] Dr. Miah Veloz IG # 0.03 10e3/ul Normal 0.00-0.03 [facility] Comment on above: Performed By: #### B CAR SEAT MAKER, CMP, HSTROPN #### [facility] [address] [place] [address] Dr. Miah Veloz IG % 0.3 % Normal 0.0-0.5 [facility] Comment on above: Performed By: #### B CAR SEAT MAKER, CMP, HSTROPN #### [facility] [address] [place] [address] Dr. Miah Veloz LYMPH # 2.8 103/ul Normal 1.2-3.8 [facility] Comment on above: Performed By: #### B CAR SEAT MAKER, CMP, HSTROPN #### [facility] [address] [place] [address] Dr. Miah Veloz Lymphocytes/100 WBC (Bld) 28.5 % Normal 20.5-60.0 [facility] Comment on above: Performed By: #### B CAR SEAT MAKER, CMP, HSTROPN #### [facility] [address] [place] [address] Dr. Miah Veloz MANUAL DIFF REQ NO Normal [facility] Comment on above: Performed By: #### B CAR SEAT MAKER, CMP, HSTROPN #### [facility] [address] [place] [address] Dr. Miah Veloz MCH (RBC) [Entitic mass] 32.4 pg Normal 25.9-34.0 [facility] Comment on above: Performed By: #### B CAR SEAT MAKER, CMP, HSTROPN #### [facility] [address] [place] [address] Dr. Miah Veloz MCHC (RBC) [Mass/Vol] 34.2 g/dL Normal 29.9-35.2 [facility] Comment on above: Performed By: #### B CAR SEAT MAKER, CMP, HSTROPN #### [facility] [address] [place] [address] Dr. Miah Veloz MCV (RBC) [Entitic vol] 94.7 fL Critically high 80.0-94 .0 [facility] Comment on above: Performed By: #### B CAR SEAT MAKER, CMP, HSTROPN #### [facility] [address] [place] [address] Dr. Miah Veloz MONO # 0.8 103/ul Normal 0.3-0.8 [facility] Comment on above: Performed By: #### B CAR SEAT MAKER, CMP, HSTROPN #### [facility] [address] [place] [address] Dr. Miah Veloz Monocytes/100 WBC (Bld) 7.6 % Normal 1.7-12.0 [facility] Comment on above: Performed By: #### B CAR SEAT MAKER, CMP, HSTROPN #### [facility] [address] [place] [address] Dr. Miah Veloz NEUT # 5.8 103/ul Normal 1.4-6.5 [facility] Comment on above: Performed By: #### B CAR SEAT MAKER, CMP, HSTROPN #### [facility] [address] [place] [address] Dr. Miah Veloz Neutrophils/100 WBC (Bld) 58.8 % Normal 43.0-75.0 [facility] Comment on above: Performed By: #### B CAR SEAT MAKER, CMP, HSTROPN #### [facility] [address] [place] [address] Dr. Miah Veloz Platelet mean volume (Bld) [ Entitic vol] 10.3 fL Normal 9.5-13.5 [facility] Comment on above: Performed By: #### B CAR SEAT MAKER, CMP, HSTROPN #### [facility] [address] [place] [address] Dr. Miah Veloz PLT 184 103/ul Normal 150-450 [facility] Comment on above: Performed By: #### B CAR SEAT MAKER, CMP, HSTROPN #### [facility] [address] [place] [address] Dr. Miah Veloz RBC 4.35 106/ul Critically low 4.70-6.10 [facility] Comment on above: Performed By: #### B CAR SEAT MAKER, CMP, HSTROPN #### [facility] [address] [place] [address] Dr. Miah Veloz WBC 9.9 103/ul Normal 4.0-11.0 [facility] Comment on above: Performed By: #### B CAR SEAT MAKER, CMP, HSTROPN #### [facility] [address] [place] [address] Dr. Miah Veloz PROF CHEM 8 (BAS METB)on Anion gap [Moles/Vol] 13.2 mmol/L Normal [facility] Comment on above: Performed By: #### B CAR SEAT MAKER, CMP, HSTROPN #### [facility] [address] [place] [address] Dr. Miah Veloz Calcium [Mass/Vol] 8.8 mg/dL Normal 8.5-10.1 [facility] Comment on above: Performed By: #### B CAR SEAT MAKER, CMP, HSTROPN #### [facility] [address] [place] [address] Dr. Miah Veloz Chloride [Moles/Vol] 107 mmol/L Normal 98-107 [facility] Comment on above: Performed By: #### B CAR SEAT MAKER, CMP, HSTROPN #### [facility] [address] [place] [address] Dr. Miah Veloz CO2 [Moles/Vol] 25.5 mmol/L Normal 21.0-32.0 [facility] Comment on above: Performed By: #### B CAR SEAT MAKER, CMP, HSTROPN #### [facility] [address] [place] [address] Dr. Miah Veloz Creatinine [Mass/Vol] 1.37 mg/dL Critically high 0.70-1.30 [facility] Comment on above: Performed By: #### B CAR SEAT MAKER, CMP, HSTROPN #### [facility] [address] [place] [address] Dr. Miah Veloz EGFR-AF CYPRIOT >60 Normal >=60 [facility] Comment on above: Performed By: #### B CAR SEAT MAKER, CMP, HSTROPN #### [facility] [address] [place] [address] Dr. Miah Veloz EGFR-NON AF CYPRIOT 52 mL/min/1.73m2 Critically low >=60 [facility] Comment on above: Performed By: #### B CAR SEAT MAKER, CMP, HSTROPN #### [facility] [address] [place] [address] Dr. Miah Veloz Glucose [Mass/Vol] 103 mg/dL Normal 74-106 [facility] Comment on above: Performed By: #### B CAR SEAT MAKER, CMP, HSTROPN #### [facility] [address] [place] [address] Dr. Miah Veloz Potassium [Moles/Vol] 4.7 mmol/L Normal 3.5-5.1 [facility] Comment on above: Performed By: #### B CAR SEAT MAKER, CMP, HSTROPN #### [facility] [address] [address] [address] Miah Veloz Sodium [Moles/Vol] 141 mmol/L Normal 136-145 [facility] Comment on above: Performed By: #### B CAR SEAT MAKER, CMP, HSTROPN #### [facility] [address] [address] [address] Miah Veloz Urea nitrogen [Mass/Vol] 32.0 mg/dL Critically high 7.0-18 .0 [facility] Comment on above: Performed By: #### B CAR SEAT MAKER, CMP, HSTROPN #### [facility] [address] [address] [address] Miah Veloz Urea nitrogen/Creatinine [Mass ratio] 23.4 mg/mg Normal [facility] Comment on above: Performed By: #### B CAR SEAT MAKER, CMP, HSTROPN #### [facility] [address] [address] [address] Miah Veloz ECHOCARDIO M/2D COMPLETEon 0 08-05-2022 ECHOCARDIO M/2D COMPLETE Patient: GARRY STREETER Exam Date: 08/05/2022 : 1955 Gender:M [facility] #: [id number] Family : Order #: [id number] CLICK HERE TO VIEW EXAM ECHOCARDIOGRAM REPORT [...] M.D. on 08/05/2022 at 14:32 Normal [facility] PROF 14(COMP METB)on 022 Albumin [Mass/Vol] 3.4 g/dL Normal 3.4-5.0 [facility] Comment on above: Performed By: #### B CAR SEAT MAKER, CMP, HSTROPN #### [facility] [address] [place] [address] Dr. Miah Veloz Albumin/Globulin [Mass ratio] 0.9 {ratio} Normal [facility] Comment on above: Performed By: #### B CAR SEAT MAKER, CMP, HSTROPN #### [facility] [address] [address] [address] Miah Veloz ALP [Catalytic activity/Vol] 73 U/L Normal 46-116 [facility] Comment on above: Performed By: #### B CAR SEAT MAKER, CMP, HSTROPN #### [facility] [address] [address] [address] Miah Veloz ALT [Catalytic activity/Vol] 31 U/L Normal 16-63 [facility] Comment on above: Performed By: #### B CAR SEAT MAKER, CMP, HSTROPN #### [facility] [address] [place] [address] Dr. Miah Veloz Anion gap [Moles/Vol] 13.6 mmol/L Normal [facility] Comment on above: Performed By: #### B CAR SEAT MAKER, CMP, HSTROPN #### [facility] [address] [place] [address] Dr. Miah Veloz AST [Catalytic activity/Vol] 14 U/L Critically low 15- 37 [facility] Comment on above: Performed By: #### B CAR SEAT MAKER, CMP, HSTROPN #### [facility] [address] [place] [address] Dr. Miah Veloz Bilirubin [Mass/Vol] 0.6 mg/dL Normal 0.2-1.0 [facility] Comment on above: Performed By: #### B CAR SEAT MAKER, CMP, HSTROPN #### [facility] [address] [place] [address] Dr. Miah Veloz Calcium [Mass/Vol] 8.8 mg/dL Normal 8.5-10.1 [facility] Comment on above: Performed By: #### B CAR SEAT MAKER, CMP, HSTROPN #### [facility] [address] [place] [address] Dr. Miah Veloz Chloride [Moles/Vol] 105 mmol/L Normal 98-107 [facility] Comment on above: Performed By: #### B CAR SEAT MAKER, CMP, HSTROPN #### [facility] [address] [place] [address] Dr. Miah Veloz CO2 [Moles/Vol] 27.7 mmol/L Normal 21.0-32.0 [facility] Comment on above: Performed By: #### B CAR SEAT MAKER, CMP, HSTROPN #### [facility] [address] [place] [address] Dr. Miah Veloz Creatinine [Mass/Vol] 1.17 mg/dL Normal 0.70-1.30 [facility] Comment on above: Performed By: #### B CAR SEAT MAKER, CMP, HSTROPN #### [facility] [facility] [address] [place] [address] Dr. Miah Veloz EGFR-AF CYPRIOT >60 Normal >=60 [facility] Comment on above: Performed By: #### B CAR SEAT MAKER, CMP, HSTROPN #### [facility] [address] [place] [address] Dr. Miah Veloz EGFR-NON AF CYPRIOT >60 Normal >=60 [facility] Comment on above: Performed By: #### B CAR SEAT MAKER, CMP, HSTROPN #### [facility] [address] [place] [address] Dr. Miah Veloz Globulin (S) [Mass/Vol] 3.9 g/dL Normal [facility] Comment on above: Performed By: #### B CAR SEAT MAKER, CMP, HSTROPN #### [facility] [address] [place] [address] Dr. Miah Veloz Glucose [Mass/Vol] 138 mg/dL Critically high 74-106 [facility] Comment on above: Performed By: #### B CAR SEAT MAKER, CMP, HSTROPN #### [facility] [address] [place] [address] Dr. Miah Veloz Potassium [Moles/Vol] 4.3 mmol/L Normal 3.5-5.1 [facility] Comment on above: Performed By: #### B CAR SEAT MAKER, CMP, HSTROPN #### [facility] [address] [place] [address] Dr. Miah Veloz Protein [Mass/Vol] 7.3 g/dL Normal 6.4-8.2 [facility] Comment on above: Performed By: #### B CAR SEAT MAKER, CMP, HSTROPN #### [facility] [address] [address] [address] Miah Veloz Sodium [Moles/Vol] 142 mmol/L Normal 136-145 [facility] Comment on above: Performed By: #### B CAR SEAT MAKER, CMP, HSTROPN #### [facility] [address] [address] [address] Miah Veloz Urea nitrogen [Mass/Vol] 25.0 mg/dL Critically high 7.0-18 .0 [facility] Comment on above: Performed By: #### B CAR SEAT MAKER, CMP, HSTROPN #### [facility] [address] [place] [address] Dr. Miah Veloz Urea nitrogen/Creatinine [Mass ratio] 21.4 mg/mg Normal [facility] Comment on above: Performed By: #### B CAR SEAT MAKER, CMP, HSTROPN #### [facility] [address] [address] [address] Miah Veloz US BRANDO DOP LEG [...] MURPHY GRIFFIN Date: 2022-05-14 16:51 Normal [facility] CBC AUTO DIFFon 04-28-2022 BASO # 0.1 103/ul Normal 0.0-0.1 [facility] Comment on above: Performed By: #### C BC #### [facility] [address] [place] [address] Dr. Miah Veloz Basophils/100 WBC (Bld) 0.7 % Normal 0.2-2.0 [facility] Comment on above: Performed By: #### C BC #### [facility] [address] [place] [address] Dr. Miah Veloz EO # 0.2 103/ul Normal 0.0-0.7 [facility] Comment on above: Performed By: #### C BC #### [facility] [address] [place] [address] Dr. Miah Veloz Eosinophils/100 WBC (Bld) 2.9 % Normal 0.9-7.0 [facility] Comment on above: Performed By: #### C BC #### [facility] [address] [place] [address] Dr. Miah Veloz Erythrocyte distribution wid th (RBC) [Ratio] 13.2 % Normal 11.0-15.0 [facility] Comment on above: Performed By: #### C BC #### [facility] [address] [place] [address] Dr. Miah Veloz Hematocrit (Bld) [Volume fraction] 36.9 % Critically low 42.0-54.0 [facility] Comment on above: Performed By: #### C BC #### [facility] [address] [place] [address] Dr. Miah Veloz Hemoglobin (Bld) [Mass/Vol] 12.4 g/dL Critically low 14.0 -18.0 [facility] Comment on above: Performed By: #### C BC #### [facility] [address] [place] [address] Dr. Miah Veloz IG # 0.03 10e3/ul Normal 0.00-0.03 [facility] Comment on above: Performed By: #### C BC #### [facility] [address] [place] [address] Dr. Miah Veloz IG % 0.4 % Normal 0.0-0.5 [facility] Comment on above: Performed By: #### C BC #### [facility] [address] [address] [address] Miah Veloz LYMPH # 1.8 103/ul Normal 1.2-3.[address] [facility] Comment on above: Performed By: #### C BC #### [facility] [address] [place] [address] Dr. Miah Veloz Lymphocytes/100 WBC (Bld) 23.0 % Normal 20.5-60.0 [facility] Comment on above: Performed By: #### C BC #### [facility] [address] [place] [address] Dr. Miah Veloz MANUAL DIFF REQ NO Normal [facility] Comment on above: Performed By: #### C BC #### [facility] [address] [place] [address] Dr. Miah Vleoz MCH (RBC) [Entitic mass] 32.3 pg Normal 25.9-34.0 [facility] Comment on above: Performed By: #### C BC #### [facility] [address] [place] [address] Dr. Miah Veloz MCHC (RBC) [Mass/Vol] 33.6 g/dL Normal 29.9-35.2 [facility] Comment on above: Performed By: #### C BC #### [facility] [address] [place] [address] Dr. Miah Veloz MCV (RBC) [Entitic vol] 96.1 fL Critically high 80.0-94 .0 [facility] Comment on above: Performed By: #### C BC #### [facility] [address] [place] [address] Dr. Miah Veloz MONO # 0.8 103/ul Normal 0.3-0.[address] [facility] Comment on above: Performed By: #### C BC #### [facility] [address] [place] [address] Dr. Miah Veloz Monocytes/100 WBC (Bld) 10.2 % Normal 1.7-12.0 [facility] Comment on above: Performed By: #### C BC #### [facility] [address] [address] [address] Miah Veloz NEUT # 4.8 103/ul Normal 1.4-6.5 [facility] Comment on above: Performed By: #### C BC #### [facility] [address] [address] [address] Miah Veloz Neutrophils/100 WBC (Bld) 62.8 % Normal 43.0-75.0 [facility] Comment on above: Performed By: #### C BC #### [facility] [address] [address] [address] Miah Veloz Platelet mean volume (Bld) [ Entitic vol] 10.2 fL Normal 9.5-13.5 [facility] Comment on above: Performed By: #### C BC #### [facility] [address] [address] [address] Miah Veloz PLT 224 103/ul Normal 150-450 [facility] Comment on above: Performed By: #### C BC #### [facility] [address] [address] [address] Miah Veloz RBC 3.84 106/ul Critically low 4.70-6.10 [facility] Comment on above: Performed By: #### C BC #### [facility] [address] [address] [address] Miah Veloz WBC 7.7 103/ul Normal 4.0-11.0 [facility] Comment on above: Performed By: #### C BC #### [facility] [address] [address] [address] Miah Veloz PROF CHEM 8 (BAS METB)on Anion gap [Moles/Vol] 14.4 mmol/L Normal [facility] Comment on above: Performed By: #### B CAR SEAT MAKER, CMP, HSTROPN #### [facility] [address] [address] [address] Miah Veloz Calcium [Mass/Vol] 8.3 mg/dL Critically low 8.5-10.1 [facility] Comment on above: Performed By: #### B CAR SEAT MAKER, CMP, HSTROPN #### [facility] [address] [address] [address] Miah Veloz Chloride [Moles/Vol] 106 mmol/L Normal 98-107 [facility] Comment on above: Performed By: #### B CAR SEAT MAKER, CMP, HSTROPN #### [facility] [address] [address] [address] Miah Veloz CO2 [Moles/Vol] 27.0 mmol/L Normal 21.0-32.0 [facility] Comment on above: Performed By: #### B CAR SEAT MAKER, CMP, HSTROPN #### [facility] [address] [place] [address] Dr. Miah Veloz Creatinine [Mass/Vol] 1.12 mg/dL Normal 0.70-1.30 [facility] Comment on above: Performed By: #### B CAR SEAT MAKER, CMP, HSTROPN #### [facility] [address] [place] [address] Dr. Miah Veloz EGFR-AF CYPRIOT >60 Normal >=60 [facility] Comment on above: Performed By: #### B CAR SEAT MAKER, CMP, HSTROPN #### [facility] [address] [place] [address] Dr. Miah Veloz EGFR-NON AF CYPRIOT >60 Normal >=60 [facility] Comment on above: Performed By: #### B CAR SEAT MAKER, CMP, HSTROPN #### [facility] [address] [place] [address] Dr. Miah Veloz Glucose [Mass/Vol] 103 mg/dL Normal 74-106 [facility] Comment on above: Performed By: #### B CAR SEAT MAKER, CMP, HSTROPN #### [facility] [address] [address] [address] Miah Veloz Potassium [Moles/Vol] 3.4 mmol/L Critically low 3.5-5.1 [facility] Comment on above: Performed By: #### B CAR SEAT MAKER, CMP, HSTROPN #### [facility] [address] [place] [address] Dr. Miah Veloz Sodium [Moles/Vol] 144 mmol/L Normal 136-145 [facility] Comment on above: Performed By: #### B CAR SEAT MAKER, CMP, HSTROPN #### [facility] [address] [place] [address] Dr. Miah Veloz Urea nitrogen [Mass/Vol] 21.0 mg/dL Critically high 7.0-18 .0 [facility] Comment on above: Performed By: #### B CAR SEAT MAKER, CMP, HSTROPN #### [facility] [address] [place] [address] Dr. Miah Veloz Urea nitrogen/Creatinine [Mass ratio] 18.8 mg/mg Normal [facility] Comment on above: Performed By: #### B CAR SEAT MAKER, CMP, HSTROPN #### [facility] [address] [place] [address] Dr. Miah Veloz CBC AUTO DIFFon 04-27-2022 BASO # 0.0 103/ul Normal 0.0-0.[address] [facility] Comment on above: Performed By: #### B CAR SEAT MAKER, CMP, HSTROPN #### [facility] [address] [place] [address] Dr. Miah Veloz Basophils/100 WBC (Bld) 0.4 % Normal 0.2-2.0 [facility] Comment on above: Performed By: #### B CAR SEAT MAKER, CMP, HSTROPN #### [facility] [address] [place] [address] Dr. Miah Veloz EO # 0.2 103/ul Normal 0.0-0.7 [facility] Comment on above: Performed By: #### B CAR SEAT MAKER, CMP, HSTROPN #### [facility] [address] [place] [address] Dr. Miah Veloz Eosinophils/100 WBC (Bld) 3.2 % Normal 0.9-7.0 [facility] Comment on above: Performed By: #### B CAR SEAT MAKER, CMP, HSTROPN #### [facility] [address] [place] [address] Dr. Miah Veloz Erythrocyte distribution wid th (RBC) [Ratio] 13.6 % Normal 11.0-15.0 [facility] Comment on above: Performed By: #### B CAR SEAT MAKER, CMP, HSTROPN #### [facility] [address] [place] [address] Dr. Miah Veloz Hematocrit (Bld) [Volume fraction] 36.7 % Critically low 42.0-54.0 [facility] Comment on above: Performed By: #### B CAR SEAT MAKER, CMP, HSTROPN #### [facility] [address] [place] [address] Dr. Miah Veloz Hemoglobin (Bld) [Mass/Vol] 12.0 g/dL Critically low 14.0 -18.0 [facility] Comment on above: Performed By: #### B CAR SEAT MAKER, CMP, HSTROPN #### [facility] [address] [place] [address] Dr. Miah Veloz IG # 0.02 10e3/ul Normal 0.00-0.03 [facility] Comment on above: Performed By: #### B CAR SEAT MAKER, CMP, HSTROPN #### [facility] [address] [place] [address] Dr. Miah Veloz IG % 0.3 % Normal 0.0-0.5 [facility] Comment on above: Performed By: #### B CAR SEAT MAKER, CMP, HSTROPN #### [facility] [address] [place] [address] Dr. Miah Veloz LYMPH # 1.6 103/ul Normal 1.2-3.8 [facility] Comment on above: Performed By: #### B CAR SEAT MAKER, CMP, HSTROPN #### [facility] [address] [place] [address] Dr. Miah Veloz Lymphocytes/100 WBC (Bld) 22.2 % Normal 20.5-60.0 [facility] Comment on above: Performed By: #### B CAR SEAT MAKER, CMP, HSTROPN #### [facility] [address] [place], [place] [id number] Dr. Miah Veloz MANUAL DIFF REQ NO Normal [facility] Comment on above: Performed By: #### B CAR SEAT MAKER, CMP, HSTROPN #### [facility] [address] [place] [address] Dr. Miah Veloz MCH (RBC) [Entitic mass] 32.3 pg Normal 25.9-34.0 [facility] Comment on above: Performed By: #### B CAR SEAT MAKER, CMP, HSTROPN #### [facility] [address] [place] [address] Dr. Miah Veloz MCHC (RBC) [Mass/Vol] 32.7 g/dL Normal 29.9-35.2 [facility] Comment on above: Performed By: #### B CAR SEAT MAKER, CMP, HSTROPN #### [facility] [address] [place] [address] Dr. Miah Veloz MCV (RBC) [Entitic vol] 98.7 fL Critically high 80.0-94 .0 [facility] Comment on above: Performed By: #### B CAR SEAT MAKER, CMP, HSTROPN #### [facility] [address] [place] [address] Dr. Miah Veloz MONO # 0.7 103/ul Normal 0.3-0.8 [facility] Comment on above: Performed By: #### B CAR SEAT MAKER, CMP, HSTROPN #### [facility] [address] [place] [address] Dr. Miah Veloz Monocytes/100 WBC (Bld) 9.1 % Normal 1.7-12.0 [facility] Comment on above: Performed By: #### B CAR SEAT MAKER, CMP, HSTROPN #### [facility] [address] [place] [address] Dr. Miah Veloz NEUT # 4.6 103/ul Normal 1.4-6.5 [facility] Comment on above: Performed By: #### B CAR SEAT MAKER, CMP, HSTROPN #### [facility] [address] [place] [address] Dr. Miah Veloz Neutrophils/100 WBC (Bld) 64.8 % Normal 43.0-75.0 [facility] Comment on above: Performed By: #### B CAR SEAT MAKER, CMP, HSTROPN #### [facility] [address] [place] [address] Dr. Miah Veloz Platelet mean volume (Bld) [ Entitic vol] 10.2 fL Normal 9.5-13.5 [facility] Comment on above: Performed By: #### B CAR SEAT MAKER, CMP, HSTROPN #### [facility] [address] [place] [address] Dr. Miah Veloz PLT 200 103/ul Normal 150-450 [facility] Comment on above: Performed By: #### B CAR SEAT MAKER, CMP, HSTROPN #### [facility] [address] [place] [address] Dr. Miah Veloz RBC 3.72 106/ul Critically low 4.70-6.10 [facility] Comment on above: Performed By: #### B CAR SEAT MAKER, CMP, HSTROPN #### [facility] [address] [place] [address] Dr. Miah Veloz WBC 7.1 103/ul Normal 4.0-11.0 [facility] Comment on above: Performed By: #### B CAR SEAT MAKER, CMP, HSTROPN #### [facility] [address] [place] [address] Dr. Miah Veloz ECHOCARDIO M/2D COMPLETEon 0 04-27-2022 ECHOCARDIO M/2D COMPLETE Patient: GARRY STREETER Exam Date: 04/27/2022 : 1955 Gender:M Ordering : DR ANDREI ORONA . Admission #: [id number] Family : Order #: [id number] CLICK HERE TO VIEW EXAM ECHOCARDIOGRAM REPORT [...] Area(A4C): 22.40 cm2 Left Atrium Systolic Volume(A2C): 75968 mm3 Left Atrium Systolic Volume(A4C): 95092 mm3 Mitral Valve Mitral Valve E-Wave Peak [...] Palacios M.D. on 04/27/2022 at 16:58 Normal [facility] PROF CHEM 8 (BAS METB)on Anion gap [Moles/Vol] 13.3 mmol/L Normal [facility] Comment on above: Performed By: #### B MP #### [facility] [address] [place] [address] Dr. Miah Veloz Calcium [Mass/Vol] 8.2 mg/dL Critically low 8.5-10.1 [facility] Comment on above: Performed By: #### B MP #### [facility] [address] [place] [address] Dr. Miah Veloz Chloride [Moles/Vol] 107 mmol/L Normal 98-107 [facility] Comment on above: Performed By: #### B MP #### [facility] [address] [place] [address] Dr. Miah Veloz CO2 [Moles/Vol] 27.5 mmol/L Normal 21.0-32.0 [facility] Comment on above: Performed By: #### B MP #### [facility] [address] [place] [address] Dr. Miah Veloz Creatinine [Mass/Vol] 0.97 mg/dL Normal 0.70-1.30 [facility] Comment on above: Performed By: #### B MP #### [facility] [address] [place] [address] Dr. Miah Veloz EGFR-AF CYPRIOT >60 Normal >=60 [facility] Comment on above: Performed By: #### B MP #### [facility] [address] [place] [address] Dr. Miah Veloz EGFR-NON AF CYPRIOT >60 Normal >=60 [facility] Comment on above: Performed By: #### B MP #### [facility] [address] [place] [address] Dr. Miah Veloz Glucose [Mass/Vol] 102 mg/dL Normal 74-106 [facility] Comment on above: Performed By: #### B MP #### [facility] [address] [address] [address] Miah Veloz Potassium [Moles/Vol] 3.8 mmol/L Normal 3.5-5.1 [facility] Comment on above: Performed By: #### B MP #### [facility] [address] [place] [address] Dr. Miah Veloz Sodium [Moles/Vol] 144 mmol/L Normal 136-145 [facility] Comment on above: Performed By: #### B MP #### [facility] [address] [place] [address] Dr. Miah Veloz Urea nitrogen [Mass/Vol] 17.0 mg/dL Normal 7.0-18.0 [facility] Comment on above: Performed By: #### B MP #### [facility] [address] [place] [address] Dr. Miah Veloz Urea nitrogen/Creatinine [Mass ratio] 17.5 mg/mg Normal [facility] Comment on above: Performed By: #### B MP #### [facility] [address] [place] [address] Dr. Miah Veloz BNPon 04-26-2022 Natriuretic peptide B (Bld) [Mass/Vol] 1105.0 pg/mL Critically high <=900.0 [facility] Comment on above: Performed By: #### B CAR SEAT MAKER, CMP, HSTROPN #### [facility] [address] [place] [address] Dr. Miah Veloz CBC AUTO DIFFon 04-26-2022 BASO # 0.0 103/ul Normal 0.0-0.1 [facility] Comment on above: Performed By: #### C BC #### [facility] [address] [place] [address] Dr. Miah Veloz Basophils/100 WBC (Bld) 0.6 % Normal 0.2-2.0 [facility] Comment on above: Performed By: #### C BC #### [facility] [address] [place] [address] Dr. Miah Veloz EO # 0.2 103/ul Normal 0.0-0.7 [facility] Comment on above: Performed By: #### C BC #### [facility] [address] [place] [address] Dr. Miah Veloz Eosinophils/100 WBC (Bld) 2.1 % Normal 0.9-7.0 [facility] Comment on above: Performed By: #### C BC #### [facility] [address] [place] [address] Dr. Miah Veloz Erythrocyte distribution wid th (RBC) [Ratio] 13.7 % Normal 11.0-15.0 [facility] Comment on above: Performed By: #### C BC #### [facility] [address] [place] [address] Dr. Miah Veloz Hematocrit (Bld) [Volume fraction] 39.3 % Critically low 42.0-54.0 [facility] Comment on above: Performed By: #### C BC #### [facility] [address] [place] [address] Dr. Miah Veloz Hemoglobin (Bld) [Mass/Vol] 13.0 g/dL Critically low 14.0 -18.0 [facility] Comment on above: Performed By: #### C BC #### [facility] [address] [place] [address] Dr. Miah Veloz IG # 0.02 10e3/ul Normal 0.00-0.03 [facility] Comment on above: Performed By: #### C BC #### [facility] [address] [place] [address] Dr. Miah Veloz IG % 0.3 % Normal 0.0-0.5 [facility] Comment on above: Performed By: #### C BC #### [facility] [address] [address] [address] Miah Veloz LYMPH # 1.1 103/ul Critically low 1.2-3.8 [facility] Comment on above: Performed By: #### C BC #### [facility] [address] [address] [address] Miah Veloz Lymphocytes/100 WBC (Bld) 16.1 % Critically low 20.5-6 0.0 [facility] Comment on above: Performed By: #### C BC #### [facility] [address] [address] [address] Miah Veloz MANUAL DIFF REQ NO Normal [facility] Comment on above: Performed By: #### C BC #### [facility] [address] [place] [address] Dr. Miah Veloz MCH (RBC) [Entitic mass] 32.7 pg Normal 25.9-34.0 [facility] Comment on above: Performed By: #### C BC #### [facility] [address] [address] [address] Miah Veloz MCHC (RBC) [Mass/Vol] 33.1 g/dL Normal 29.9-35.2 [facility] Comment on above: Performed By: #### C BC #### [facility] [address] [place] [address] Dr. Miah Veloz MCV (RBC) [Entitic vol] 98.7 fL Critically high 80.0-94 .0 [facility] Comment on above: Performed By: #### C BC #### [facility] [address] [address] [address] Miah Veloz MONO # 0.5 103/ul Normal 0.3-0.8 [facility] Comment on above: Performed By: #### C BC #### [facility] [address] [address] [address] Miah Veloz Monocytes/100 WBC (Bld) 7.6 % Normal 1.7-12.0 [facility] Comment on above: Performed By: #### C BC #### [facility] [address] [place] [address] Dr. Miah Veloz NEUT # 5.2 103/ul Normal 1.4-6.5 [facility] Comment on above: Performed By: #### C BC #### [facility] [address] [address] [address] Miah Veloz Neutrophils/100 WBC (Bld) 73.3 % Normal 43.0-75.0 [facility] Comment on above: Performed By: #### C BC #### [facility] [address] [address] [address] Miah Veloz Platelet mean volume (Bld) [ Entitic vol] 10.7 fL Normal 9.5-13.5 [facility] Comment on above: Performed By: #### C BC #### [facility] [address] [place] [address] Dr. Miah Veloz PLT 200 103/ul Normal 150-450 [facility] Comment on above: Performed By: #### C BC #### [facility] [address] [place] [address] Dr. Miah Veloz RBC 3.98 106/ul Critically low 4.70-6.10 [facility] Comment on above: Performed By: #### C BC #### [facility] [address] [place] [address] Dr. Miah Veloz WBC 7.1 103/ul Normal 4.0-11.0 [facility] Comment on above: Performed By: #### C BC #### [facility] [address] [place] [address] Dr. Miah Veloz CTA CHEST WO W [...] thickening. Consider pulmonary edema Electronically authenticated by: NCIK CABRALES Date: 2022-04-26 10:50 Normal [facility] Covid-19 PCR (CVDTB)on SARS-CoV-2 (COVID-19) RNA GÓMEZ+probe Ql (Unsp spec) Not detected Normal NOT DETECTED [facility] Comment on above: Result Comment: When diagnostic [...] for this test is supported by the [place] of Health and Human Service's declaration that [...] longer be used). Performed By: #### B CAR SEAT MAKER, CMP, HSTROPN #### [facility] [address] [place] [address] Dr. Miah Veloz PROF 14(COMP METB)on 022 Albumin [Mass/Vol] 3.1 g/dL Critically low 3.4-5.0 [facility] Comment on above: Performed By: #### B CAR SEAT MAKER, CMP, HSTROPN #### [facility] [address] [place] [address] Dr. Miah Veloz Albumin/Globulin [Mass ratio] 0.9 {ratio} Normal [facility] Comment on above: Performed By: #### B CAR SEAT MAKER, CMP, HSTROPN #### [facility] [address] [place] [address] Dr. Miah Veloz ALP [Catalytic activity/Vol] 54 U/L Normal 46-116 [facility] Comment on above: Performed By: #### B CAR SEAT MAKER, CMP, HSTROPN #### [facility] [address] [place] [address] Dr. Miah Veloz ALT [Catalytic activity/Vol] 63 U/L Normal 16-63 [facility] Comment on above: Performed By: #### B CAR SEAT MAKER, CMP, HSTROPN #### [facility] [address] [place] [address] Dr. Miah Veloz Anion gap [Moles/Vol] 13.9 mmol/L Normal [facility] Comment on above: Performed By: #### B CAR SEAT MAKER, CMP, HSTROPN #### [facility] [address] [place] [address] Dr. Miah Veloz AST [Catalytic activity/Vol] 32 U/L Normal 15-37 [facility] Comment on above: Performed By: #### B CAR SEAT MAKER, CMP, HSTROPN #### [facility] [address] [place] [address] Dr. Miah Veloz Calcium [Mass/Vol] 8.7 mg/dL Normal 8.5-10.1 [facility] Comment on above: Performed By: #### B CAR SEAT MAKER, CMP, HSTROPN #### [facility] [address] [place] [address] Dr. Miah Veloz Chloride [Moles/Vol] 108 mmol/L Critically high 98-107 [facility] Comment on above: Performed By: #### B CAR SEAT MAKER, CMP, HSTROPN #### [facility] [address] [place] [address] Dr. Miah Veloz CO2 [Moles/Vol] 24.3 mmol/L Normal 21.0-32.0 [facility] Comment on above: Performed By: #### B CAR SEAT MAKER, CMP, HSTROPN #### [facility] [address] [place] [address] Dr. Miah Veloz Creatinine [Mass/Vol] 0.90 mg/dL Normal 0.70-1.30 [facility] Comment on above: Performed By: #### B CAR SEAT MAKER, CMP, HSTROPN #### [facility] [address] [place] [address] Dr. Miah Veloz EGFR-AF CYPRIOT >60 Normal >=60 [facility] Comment on above: Performed By: #### B CAR SEAT MAKER, CMP, HSTROPN #### [facility] [address] [place] [address] Dr. Miah Veloz EGFR-NON AF CYPRIOT >60 Normal >=60 [facility] Comment on above: Performed By: #### B CAR SEAT MAKER, CMP, HSTROPN #### [facility] [address] [place] [address] Dr. Miah Veloz Globulin (S) [Mass/Vol] 3.6 g/dL Normal [facility] Comment on above: Performed By: #### B CAR SEAT MAKER, CMP, HSTROPN #### [facility] [address] [place] [address] Dr. Miah Veloz Glucose [Mass/Vol] 146 mg/dL Critically high 74-106 [facility] Comment on above: Performed By: #### B CAR SEAT MAKER, CMP, HSTROPN #### [facility] [address] [place] [address] Dr. Miah Veloz Potassium [Moles/Vol] 4.2 mmol/L Normal 3.5-5.1 [facility] Comment on above: Performed By: #### B CAR SEAT MAKER, CMP, HSTROPN #### [facility] [address] [place] [address] Dr. Miah Veloz Protein [Mass/Vol] 6.7 g/dL Normal 6.4-8.2 [facility] Comment on above: Performed By: #### B CAR SEAT MAKER, CMP, HSTROPN #### [facility] [address] [place] [address] Dr. Miah Veloz Sodium [Moles/Vol] 142 mmol/L Normal 136-145 [facility] Comment on above: Performed By: #### B CAR SEAT MAKER, CMP, HSTROPN #### [facility] [address] [place] [address] Dr. Miah Veloz Urea nitrogen [Mass/Vol] 19.0 mg/dL Critically high 7.0-18 .0 [facility] Comment on above: Performed By: #### B CAR SEAT MAKER, CMP, HSTROPN #### [facility] [address] [place] [address] Dr. Miah Veloz Urea nitrogen/Creatinine [Mass ratio] 21.1 mg/mg Normal [facility] Comment on above: Performed By: #### B CAR SEAT MAKER, CMP, HSTROPN #### [facility] [address] [place] [address] Dr. Miah Veloz PROTIMEon 04-26-2022 INR Coag (PPP) [Relative time] 1.20 {INR} Normal [facility] Comment on above: Performed By: #### B CAR SEAT MAKER, CMP, HSTROPN #### [facility] [address] [place] [address] Dr. Miah Veloz INR GUIDELINES SEE BELOW Normal [facility] Comment on above: Result Comment: JENNIFER RED INR: 2.0 - 3.0 CONDITIONS NOT LISTED BELOW 2.5 - 3.5 FOR PROSTHETIC HEART VALVE REPLACEMENT 2.5 - 3.5 RECURRENT THROMBOSIS Performed By: #### B CAR SEAT MAKER, CMP, HSTROPN #### [facility] [address] [place] [address] Dr. Miah Veloz PT Coag (PPP) [Time] 12.8 s Critically high 9.0-11.6 [facility] Comment on above: Performed By: #### B CAR SEAT MAKER, CMP, HSTROPN #### [facility] [address] [place], [place] [address] Dr. Miah Veloz PTTon 04-26-2022 aPTT Coag (Bld) [Time] 28.5 s Normal 22.3-36.[address] [facility] Comment on above: Performed By: #### B CAR SEAT MAKER, CMP, HSTROPN #### [facility] [address] [place], [place] [address] Dr. Miah Veloz TROPONIN, HIGH SENSITIVITYon 04-26-2022 HSTROP 24.7 pg/mL Normal 4.0-76.1 [place] Comment on above: Result Comment: CUT- OFF POINTS HAVE BEEN ESTABLISHED BASED ON THE FOURTH UNIVERSAL DEFINITIONS OF MYOCARDIAL INFARCTION. THE UPPER REFERENCE LIMIT (URL) OF TROPONIN, DEFINED THE 99TH PERCENTILE OF cTnI DISTRIBUTION IN A REFERENCE POPULATION, HAS BEEN CONFIRMED THE DECISION THRESHOLD FOR AL DIAGNOSIS. Performed By: #### B CAR SEAT MAKER, CMP, HSTROPN #### [facility] [address] [place] [address] [address] Miah Veloz Encounters Encounter Date Encounter Type Care Provider Facility Start: 10-22-2023 End: 10-22-2023 ambulatory MEET [facility] Start: 08-30-2023 End: 08-30-2023 ambulatory MARTIN SPENCER [facility] Start: 03-22-2023 End: 03-22-2023 ambulatory TACHO [facility] Start: 03-01-2023 End: 03-02-2023 ambulatory SARAH RAMIREZ Facility:[facility] Start: 02-03-2023 End: 02-03-2023 ambulatory SARAH RAMIREZ [facility] Start: 01-15-2023 End: 01-16-2023 ambulatory LUZMA PHAM Facility:[facility] Start: 10-31-2022 Encounter for preprocedural laboratory examination DR TAVIA [place] . [facility] Start: 10-28-2022 End: 10-29-2022 ambulatory TAVIA [place] Facility:[facility] Start: 10-28-2022 End: 10-28-[address] [place] . Facility:[facility] Start: 10-24-2022 End: 10-25-[address] [place] . Facility:[facility] Start: 10-24-2022 End: 10-25-2022 Encounter for preprocedural laboratory examination DR TAVIA [place] . Facility:[facility] Start: 08-12-2022 Encounter for other preprocedural examination TACHO HOLLAND [facility] Start: 08-10-2022 End: 08-11-2022 ambulatory LEANDROBARPatience PRADEEPSYLVIABARBARA Facility:[facility] Start: 08-10-2022 End: 08-11-2022 Encounter for other preprocedural examination TACHO HOLLAND Facility:[facility] Start: 08-05-2022 End: 08-06-2022 ambulatory TACHO HOLLAND Facility:[facility] Start: 05-14-2022 End: 05-15-[address] DOCTOR FREED Facility:[facility] Start: 04-26-2022 End: 04-28-2022 Evaluation and management of inpatient [facility] Facility:[facility] Procedures Date Procedure Procedure Detail Performing Clinician Start: 03-22-2023 Follow-up visit Follow-up TACHO HOLLAND Payers Date Payer Category Payer Medicare [id number] 1961 Unknown [id number] 1955 Unknown [id number] [id number] 1955 Unknown [id number] .. [id number] 1955 Unknown [id number] 1955 Unknown [id number] ..[id number] 1953 Unknown [id number] ..[id number] 1953 Unknown [id number] ..[id number] 1953 Unknown [id number] 2..84 [id number] 1955 Unknown [id number] 2.16.84 [id number] 1955 Unknown [id number] 2.16.84 [id number] Clinical Notes 04-26-2022 to 10-22-2023 Note Date & Type Note Facility 10-22-2023 Note Patient here for [facility] for afib w/ RVR. He was sent [...] All other systems reviewed and are negative. [facility] 08-30-2023 Note [facility]TP CARDIOLOGY PROGR ESS NOTE HPI: Garry Streeter is a 68 y.o. male past medical history of heart failure improved ejection fraction, paroxysmal atrial fibrillation, hypertension, and valvular heart disease seen in follow-up. Update: 03/22/2023 Pt is here for med check [facility] pt states he stopped taking some of [...] Conclusions: Biphasic cardio (more content not included)... [facility] 08-30-2023 Note Patient here for 6 [...] All other systems reviewed and are negative. [facility] 03-22-2023 Note UTP CARDIOLOGY PROGR ESS [...] normal. Mild aor (more content not included)... [facility] 02-03-2023 Note No edema today [facility] 02-03-2023 Note Stable [facility] 02-03-2023 Note EKG today-Sinus manny ycardia with PACs/PVCs- And artifact, Otherwise normal EKG He is adamant he is still taking Eliquis anticoagulation, Pharmacy denies that he is filled Eliquis or metoprolol in the last 6 months. Discussed with patient risk for stroke with paroxysmal atrial fib- He states he has cardia Monitor at home and he has not had any A-fib [facility] 02-03-2023 Note [facility] I-II Currently appears [...] Staff To obtain recent labs from PCP [facility] 02-03-2023 Note UTP CARDIOLOGY PROGR ESS NOTE HPI: Garry Streeter is a 67 y.o. male here for Med Refill, Atrial Fibrillation, and Congestive Heart Failure Known h/o Chronic systolic heart failure, Paroxysmal atrial fib, edema, and noncompliance to med regimen. Pt is here for med check [facility] pt states he stopped taking some of [...] this time. Staff called pharmacy- [facility] [place] and patient states this is his only [...] Right ventricular syst (more content not included)... [facility] 02-03-2023 Note Pt is here for med c heck F/U [facility] pt states he stop take some of his meds due to having Diarrhea more then 3 times a day pt also stated he was having problems walking due to gout. Review of Systems Gastrointestinal: Positive for diarrhea. All other systems reviewed and are negative. [facility] 04-26-2022 Note PROCEDURE: XR KNEE L T 4V or > COMPARISON: None. HISTORY: Swelling FINDINGS: BONES:No fracture, acute abnormality, or significant arthropathy. SOFT TISSUES:Negative. No visible soft tissue swelling. EFFUSION:Moderate suprapatellar joint effusion OTHER: Negative. IMPRESSION: Moderate joint effusion Electronically authenticated by: NICK CABRALES Date: 2022-04-26 10:09 [facility] Summary Purpose Family History No Family History Records FoundNo Family History Records FoundNo Family History Records Found Advance Directives No Advanced Directives Records FoundNo Advanced Directives Records FoundNo Advanced Directives Records Found Additional Source Comments (unrecognized sect ion and content) No Status Records FoundNo Status Records FoundNo Status Records Found INFORMATION SOURCE (unrecogn ized section and content) DATE CREATED AUTHOR 10/30/2022 [facility] DATE CREATED AUTHOR AUTHOR'S ORGANIZ ATION 03/17/2023 [facility] DATE CREATED AUTHOR AUTHOR'S ORGANIZ ATION 11/07/2023 [facility] FOR RECORDS PERTAINING TO PATIENTS WHO ARE [...] BE BASED ON THE PRIMARY CLINICAL RECORDS. [employer] [facility]. provides no warranty or guarantee of the accuracy or completeness of information in this document.
--- OUTSIDE RECORDS SUMMARY | 2023-11-09 20:16 | XMS_ITS | CCD ---
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 Name Role Phone TAVIA [place] Attending Unavailable [...] Acetaminophen; Translations: [ACETAMINOPHEN] Drug Allergy 09-15-2022 [facility] Problems Active Problems Problem Classification [...] Da te Episodic/Chronic Other aftercare (1 source) prison (current) use of anticoagulants; Translations: [CORRECTION CURRNT USE ANTICOAGULANTS] Onset: 11-01-2022 Episodic Other [...] on it so should be fine Normal [facility] Telephoneon 11-04-2023 Telephone [id number] Ben Streeter W 1955 M Date Provider Department Center 11/04/2023 [facility]OS [facility] Family History Problem Relation Age of Onset Colon cancer Brother Family Status - Relation Status Age at Brother Normal [facility] Office Visiton 08-30-2023 Follow-up visit [id number] Ben Streeter rt W 1955 M Date Provider Department Center 08/30/2023 [id number] SPENCER [facility] Esha Champion Family History Problem Relation Age of Onset Colon cancer Brother Family Status - Relation Status Age at Brother Level of Service:19103 [place] OFFICE/OUTPATIENT ESTABLISHED MOD MDM 30-39 MIN Normal [facility] Office Visiton 03-22-2023 Follow-up visit [id number] Ben Streeter rt W 1955 M Date Provider Department Center 03/22/2023 [id number] LEANDROSHRADDHA [facility] Family History Problem Relation Age of Onset Colon cancer Brother Family Status - Relation Status Age at Brother Level of Service:11650 [place] OFFICE/OUTPATIENT ESTABLISHED MOD MDM 30-39 MIN Reason for Visit and Comments: Follow-up [990974] - f/u echo Normal [facility] ECHOCARDIO M/2D COMPLETEon 0 03-01-2023 ECHOCARDIO M/2D COMPLETE Patient: GARRY STREETER Exam Date: 03/01/2023 : 1955 Gender:M Ordering : SARAH RAMIREZ Admission #: [id number] Family : WARREN JOYNER INSIDE 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 on 03/01/2023 at 09:21 Normal [facility] Office Visiton 02-03-2023 Follow-up visit [id number] Ben Streeter rt W 1955 M Date Provider Department Center 02/03/[address] [facility] Family History Problem Relation Age of Onset Colon cancer Brother Family Status - Relation Status Age at Brother Level of Service:12405 [place] OFFICE/OUTPATIENT ESTABLISHED MOD MDM 30-39 MIN Reason for Visit and Comments: Med Refill [130392] Atrial Fibrillation [80] Congestive Heart Failure [127] Normal [facility] BNPon 01-15-2023 Natriuretic peptide B (Bld) [Mass/Vol] 20.0 pg/mL Normal <=900.0 [facility]wa Comment on above: Performed By: #### B INSIDE SALES ACCOUNT MANAGER, MG, CMP #### [facility] [address] [place] [address] Dr. Miah Veloz HEMOGRAM AND PLATELon 2022 Hematocrit (Bld) [Volume fraction] 41.3 % Critically low 42.0-54.0 [facility] Comment on above: Performed By: #### B INSIDE SALES ACCOUNT MANAGER, CMP, HSTROPN #### [facility] [address] [place] [address] Dr. Miah Veloz Hemoglobin (Bld) [Mass/Vol] 14.2 g/dL Normal 14.0-18. 0 [facility] Comment on above: Performed By: #### B INSIDE SALES ACCOUNT MANAGER, CMP, HSTROPN #### [facility] [address] [address] [address] Miah Veloz MCH (RBC) [Entitic mass] 31.5 pg Normal 25.9-34.0 [facility] Comment on above: Performed By: #### B INSIDE SALES ACCOUNT MANAGER, CMP, HSTROPN #### [facility] [address] [place] [address] Dr. Miah Veloz MCHC (RBC) [Mass/Vol] 34.4 g/dL Normal 29.9-35.2 [facility] Comment on above: Performed By: #### B INSIDE SALES ACCOUNT MANAGER, CMP, HSTROPN #### [facility] [address] [place] [address] Dr. Miah Veloz MCV (RBC) [Entitic vol] 91.6 fL Normal 80.0-94.0 [facility] Comment on above: Performed By: #### B INSIDE SALES ACCOUNT MANAGER, CMP, HSTROPN #### [facility] [address] [place] [address] Dr. Miah Veloz PLT 173 103/ul Normal 150-[address] [facility] Comment on above: Performed By: #### B INSIDE SALES ACCOUNT MANAGER, CMP, HSTROPN #### [facility] [address] [place] [address] Dr. Miah Veloz RBC 4.51 106/ul Critically low 4.70-6.[address] [facility] Comment on above: Performed By: #### B INSIDE SALES ACCOUNT MANAGER, CMP, HSTROPN #### [facility] [address] [place] [address] Dr. Miah Veloz WBC 5.8 103/ul Normal 4.0-11.[address] [facility] Comment on above: Performed By: #### B INSIDE SALES ACCOUNT MANAGER, CMP, HSTROPN #### [facility] [address] [place] [address] Dr. Miah Veloz MAGNESIUMon 01-15-2023 Magnesium [Mass/Vol] 1.9 mg/dL Normal 1.8-2.4 [facility] Comment on above: Performed By: #### B INSIDE SALES ACCOUNT MANAGER, MG, CMP #### [facility] [address] [place] [address] Dr. Miah Veloz PROF 14(COMP METB)on 023 Albumin [Mass/Vol] 3.8 g/dL Normal 3.4-5.0 [facility] Comment on above: Performed By: #### B INSIDE SALES ACCOUNT MANAGER, MG, CMP #### [facility] [address] [place] [address] Dr. Miah Veloz Albumin/Globulin [Mass ratio] 0.9 {ratio} Normal [facility] Comment on above: Performed By: #### B INSIDE SALES ACCOUNT MANAGER, MG, CMP #### [facility] [address] [place] [address] Dr. Miah Veloz ALP [Catalytic activity/Vol] 86 U/L Normal 46-116 [facility] Comment on above: Performed By: #### B INSIDE SALES ACCOUNT MANAGER, MG, CMP #### [facility] [address] [place] [address] Dr. iMah Veloz ALT [Catalytic activity/Vol] 26 U/L Normal 16-63 [facility] Comment on above: Performed By: #### B INSIDE SALES ACCOUNT MANAGER, MG, CMP #### [facility] [address] [place] [address] Dr. Miah Veloz Anion gap [Moles/Vol] 11.3 mmol/L Normal [facility] Comment on above: Performed By: #### B INSIDE SALES ACCOUNT MANAGER, MG, CMP #### [facility] [address] [place] [address] Dr. Miah Veloz AST [Catalytic activity/Vol] 18 U/L Normal 15-37 [facility] Comment on above: Performed By: #### B INSIDE SALES ACCOUNT MANAGER, MG, CMP #### [facility] [address] [place] [address] Dr. Miah Veloz Bilirubin [Mass/Vol] 0.6 mg/dL Normal 0.2-1.0 [facility] Comment on above: Performed By: #### B INSIDE SALES ACCOUNT MANAGER, MG, CMP #### [facility] [address] [place] [address] Dr. Miah Veloz Calcium [Mass/Vol] 9.4 mg/dL Normal 8.5-10.1 [facility] Comment on above: Performed By: #### B INSIDE SALES ACCOUNT MANAGER, MG, CMP #### [facility] [address] [place] [address] Dr. Miah Veloz Chloride [Moles/Vol] 105 mmol/L Normal 98-107 [facility] Comment on above: Performed By: #### B INSIDE SALES ACCOUNT MANAGER, MG, CMP #### [facility] [address] [place] [address] Dr. Miah Veloz CO2 [Moles/Vol] 30.2 mmol/L Normal 21.0-32.0 [facility] Comment on above: Performed By: #### B INSIDE SALES ACCOUNT MANAGER, MG, CMP #### [facility] [address] [place] [address] Dr. Miah Veloz Creatinine [Mass/Vol] 0.88 mg/dL Normal 0.70-1.30 [facility] Comment on above: Performed By: #### B INSIDE SALES ACCOUNT MANAGER, MG, CMP #### [facility] [address] [place] [address] Dr. Miah Veloz EGFR-AF CITIZEN OF [place] >60 Normal >=60 [facility] Comment on above: Performed By: #### B INSIDE SALES ACCOUNT MANAGER, MG, CMP #### [facility] [address] [place] [address] Dr. Miah Veloz EGFR-NON AF CITIZEN OF [place] >60 Normal >=60 [facility] Comment on above: Performed By: #### B INSIDE SALES ACCOUNT MANAGER, MG, CMP #### [facility] [address] [place] [address] Dr. Miah Veloz Globulin (S) [Mass/Vol] 4.1 g/dL Normal [facility] Comment on above: Performed By: #### B INSIDE SALES ACCOUNT MANAGER, MG, CMP #### [facility] [address] [place] [address] Dr. Miah Veloz Glucose [Mass/Vol] 98 mg/dL Normal 74-106 [facility] Comment on above: Performed By: #### B INSIDE SALES ACCOUNT MANAGER, MG, CMP #### [facility] [address] [place] [address] Dr. Miah Veloz Potassium [Moles/Vol] 4.5 mmol/L Normal 3.5-5.1 [facility] Comment on above: Performed By: #### B INSIDE SALES ACCOUNT MANAGER, MG, CMP #### [facility] [address] [place] [address] Dr. Miah Veloz Protein [Mass/Vol] 7.9 g/dL Normal 6.4-8.2 [facility] Comment on above: Performed By: #### B INSIDE SALES ACCOUNT MANAGER, MG, CMP #### [facility] [address] [place] [address] Dr. Miah Veloz Sodium [Moles/Vol] 142 mmol/L Normal 136-145 [facility] Comment on above: Performed By: #### B INSIDE SALES ACCOUNT MANAGER, MG, CMP #### [facility] [address] [place] [address] Dr. Miah Veloz Urea nitrogen [Mass/Vol] 15.0 mg/dL Normal 7.0-18.0 [facility] Comment on above: Performed By: #### B INSIDE SALES ACCOUNT MANAGER, MG, CMP #### [facility] [address] [place] [address] Dr. Miah Veloz Urea nitrogen/Creatinine [Mass ratio] 17.0 mg/mg Normal [facility] Comment on above: Performed By: #### B INSIDE SALES ACCOUNT MANAGER, MG, CMP #### [facility] [address] [place] [address] Dr. Miah Veloz XR CHEST 2 Von [...] LUZMA PHAM Date: 2023-01-15 12:47 Normal [facility] SURGICAL PATH REPORTon 10-29 SURGICAL PATH REPORT [facility] Department of Pathology [address] [place] [id number] [phone] Name: GARRY STREETER : 1955 Financial [id number] Number: Gender Male Locatio [place] : n: Admit 67 years Attending TAVIA [place] Age: Provider: Ordering TAVIA [place] Provider: Consulti Surgical Pathology Report ng: ACCESSION: COLLECTED DATE/TIME: RECEIVED DATE/TIME: PATHOLOGIST: [id number] 10/28/2022 11:24 EST 10/28/2022 11:24 EST MATT PELAEZ MD Final Diagnosis Report for [facility] [place] (A) SIGMOID POLYP AT 40 CM: [...] ____ Print 10/29/2022 14:17 EST Number: Date/Time: [facility] Department of Pathology [address] [place] [id number] Name: GARRY STREETER : 1955 Financial [id number] Number: Gender Male [place] : n: Admit 67 years Attending TAVIA [place] Age: Provider: Ordering TAVIA [place] Provider: Mikei Surgical Pathology Report ng: ACCESSION: COLLECTED DATE/TIME: RECEIVED DATE/TIME: PATHOLOGIST: [id number] 10/28/2022 11:24 EST 10/28/2022 11:24 EST MATT [...] MP/ald 10/28/2022 Tissue pathology report for: [facility], [address] [place] [address]; PATHOLOGY SERVICES PROVIDED BY [employer] (CLIA #[id number]) in cooperation with [facility] at [address] [place] [address] ( CLIA #[id number]) Codes CPT CODE: [id number] ____ Print 10/29/2022 14:17 EST Number: Date/Time: [facility] Comment on above: Performed By: #### 9 [id number] #### [facility] Services [address] [place] [address] Nurse Leader: Matt Pelaez MD [facility]on SARS-CoV-2 (COVID-19) RNA GÓMEZ+probe Ql (Unsp spec) Not detected Normal NOT DETECTED [facility] Comment on above: Result Comment: This test is not yet approved or cleared by the [place] FDA. When there are no FDA-approved or cleared tests available, and other criteria are met, FDA can make tests available under an emergency access mechanism called an Emergency Use Authorization (EUA). The EUA for this test is supported by the [place] of Health and Human Service's (HHS's) declaration [...] SARS-CoV-2. Performed By: #### C VDTBH #### [facility] [address] [place] [address] Dr. Miah Veloz CBC AUTO DIFFon 08-10-2022 BASO # 0.1 103/ul Normal 0.0-0.1 [facility] ospital Comment on above: Performed By: #### B INSIDE SALES ACCOUNT MANAGER, CMP, HSTROPN #### [facility] [address] [address] [address] Miah Veloz Basophils/100 WBC (Bld) 0.7 % Normal 0.2-2.0 [facility] Comment on above: Performed By: #### B INSIDE SALES ACCOUNT MANAGER, CMP, HSTROPN #### [facility] [address] [place] [address] Dr. Miah Veloz EO # 0.4 103/ul Normal 0.0-0.7 [facility] Comment on above: Performed By: #### B INSIDE SALES ACCOUNT MANAGER, CMP, HSTROPN #### [facility] [address] [place] [address] Dr. Miah Veloz Eosinophils/100 WBC (Bld) 4.1 % Normal 0.9-7.0 [facility] Comment on above: Performed By: #### B INSIDE SALES ACCOUNT MANAGER, CMP, HSTROPN #### [facility] [address] [place] [address] Dr. Miah Veloz Erythrocyte distribution wid th (RBC) [Ratio] 16.0 % Critically high 11.0-15.0 [facility] pital Comment on above: Performed By: #### B INSIDE SALES ACCOUNT MANAGER, CMP, HSTROPN #### [facility] [address] [place] [address] Dr. Miah Veloz Hematocrit (Bld) [Volume fraction] 41.2 % Critically low 42.0-54.0 [facility] Comment on above: Performed By: #### B INSIDE SALES ACCOUNT MANAGER, CMP, HSTROPN #### [facility] [address] [place] [address] Dr. Miah Veloz Hemoglobin (Bld) [Mass/Vol] 14.1 g/dL Normal 14.0-18. 0 [facility] Comment on above: Performed By: #### B INSIDE SALES ACCOUNT MANAGER, CMP, HSTROPN #### [facility] [address] [place] [address] Dr. Miah Veloz IG # 0.03 10e3/ul Normal 0.00-0.03 [facility] Comment on above: Performed By: #### B INSIDE SALES ACCOUNT MANAGER, CMP, HSTROPN #### [facility] [address] [place] [address] Dr. Miah Veloz IG % 0.3 % Normal 0.0-0.[address] [facility]spital Comment on above: Performed By: #### B INSIDE SALES ACCOUNT MANAGER, CMP, HSTROPN #### [facility] [address] [place] [address] Dr. Miah Veloz LYMPH # 2.8 103/ul Normal 1.2-3.[address] [facility] Comment on above: Performed By: #### B INSIDE SALES ACCOUNT MANAGER, CMP, HSTROPN #### [facility] [address] [place] [address] Dr. Miah Veloz Lymphocytes/100 WBC (Bld) 28.5 % Normal 20.5-60.0 [facility] Comment on above: Performed By: #### B INSIDE SALES ACCOUNT MANAGER, CMP, HSTROPN #### [facility] [address] [place] [address] Dr. Miah Veloz MANUAL DIFF REQ NO Normal [facility] Comment on above: Performed By: #### B INSIDE SALES ACCOUNT MANAGER, CMP, HSTROPN #### [facility] [address] [place] [address] Dr. Miah Veloz MCH (RBC) [Entitic mass] 32.4 pg Normal 25.9-34.0 [facility] Comment on above: Performed By: #### B INSIDE SALES ACCOUNT MANAGER, CMP, HSTROPN #### [facility] [address] [place] [address] Dr. Miah Veloz MCHC (RBC) [Mass/Vol] 34.2 g/dL Normal 29.9-35.2 [facility] Comment on above: Performed By: #### B INSIDE SALES ACCOUNT MANAGER, CMP, HSTROPN #### [facility] [address] [place] [address] Dr. Miah Veloz MCV (RBC) [Entitic vol] 94.7 fL Critically high 80.0-94 .0 [facility] Comment on above: Performed By: #### B INSIDE SALES ACCOUNT MANAGER, CMP, HSTROPN #### [facility] [address] [place] [address] Dr. Miah Veloz MONO # 0.8 103/ul Normal 0.3-0.8 [facility] Comment on above: Performed By: #### B INSIDE SALES ACCOUNT MANAGER, CMP, HSTROPN #### [facility] [address] [place] [address] Dr. Miah Veloz Monocytes/100 WBC (Bld) 7.6 % Normal 1.7-12.0 [facility] Comment on above: Performed By: #### B INSIDE SALES ACCOUNT MANAGER, CMP, HSTROPN #### [facility] [address] [place] [address] Dr. Miah Veloz NEUT # 5.8 103/ul Normal 1.4-6.[address] [facility] Comment on above: Performed By: #### B INSIDE SALES ACCOUNT MANAGER, CMP, HSTROPN #### [facility] [address] [place] [address] Dr. Miah Veloz Neutrophils/100 WBC (Bld) 58.8 % Normal 43.0-75.0 [facility] Comment on above: Performed By: #### B INSIDE SALES ACCOUNT MANAGER, CMP, HSTROPN #### [facility] [address] [place] [address] Dr. Miah Veloz Platelet mean volume (Bld) [ Entitic vol] 10.3 fL Normal 9.5-13.5 [facility] pital Comment on above: Performed By: #### B INSIDE SALES ACCOUNT MANAGER, CMP, HSTROPN #### [facility] [address] [place] [address] Dr. Miah Veloz PLT 184 103/ul Normal 150-[address] [facility] Comment on above: Performed By: #### B INSIDE SALES ACCOUNT MANAGER, CMP, HSTROPN #### [facility] [address] [place] [address] Dr. Miah Veloz RBC 4.35 106/ul Critically low 4.70-6.[address] [facility] Comment on above: Performed By: #### B INSIDE SALES ACCOUNT MANAGER, CMP, HSTROPN #### [facility] [address] [place] [address] Dr. Miah Veloz WBC 9.9 103/ul Normal 4.0-11.[address] [facility] Comment on above: Performed By: #### B INSIDE SALES ACCOUNT MANAGER, CMP, HSTROPN #### [facility] [address] [place] [address] Dr. Miah Veloz PROF CHEM 8 (BAS METB)on Anion gap [Moles/Vol] 13.2 mmol/L Normal [facility] Comment on above: Performed By: #### B INSIDE SALES ACCOUNT MANAGER, CMP, HSTROPN #### [facility] [address] [place] [address] Dr. Miah Veloz Calcium [Mass/Vol] 8.8 mg/dL Normal 8.5-10.1 [facility] Comment on above: Performed By: #### B INSIDE SALES ACCOUNT MANAGER, CMP, HSTROPN #### [facility] [address] [place] [address] Dr. Miah Veloz Chloride [Moles/Vol] 107 mmol/L Normal 98-107 [facility] Comment on above: Performed By: #### B INSIDE SALES ACCOUNT MANAGER, CMP, HSTROPN #### [facility] [address] [place] [address] Dr. Miah Veloz CO2 [Moles/Vol] 25.5 mmol/L Normal 21.0-32.0 [facility] Comment on above: Performed By: #### B INSIDE SALES ACCOUNT MANAGER, CMP, HSTROPN #### [facility] [address] [place] [address] Dr. Miah Veloz Creatinine [Mass/Vol] 1.37 mg/dL Critically high 0.70-1.30 [facility] Comment on above: Performed By: #### B INSIDE SALES ACCOUNT MANAGER, CMP, HSTROPN #### [facility] [address] [place] [address] Dr. Miah Veloz EGFR-AF CITIZEN [place] >60 Normal >=60 [facility] Comment on above: Performed By: #### B INSIDE SALES ACCOUNT MANAGER, CMP, HSTROPN #### [facility] [address] [place] [address] Dr. Miah Veloz EGFR-NON AF CITIZEN OF [place] 52 mL/min/1.73m2 Critically low >=60 [facility] Comment on above: Performed By: #### B INSIDE SALES ACCOUNT MANAGER, CMP, HSTROPN #### [facility] [address] [place] [address] Dr. Miah Veloz Glucose [Mass/Vol] 103 mg/dL Normal 74-106 [facility] Comment on above: Performed By: #### B INSIDE SALES ACCOUNT MANAGER, CMP, HSTROPN #### [facility] [address] [place] [address] Dr. Miah Veloz Potassium [Moles/Vol] 4.7 mmol/L Normal 3.5-5.1 [facility] Comment on above: Performed By: #### B INSIDE SALES ACCOUNT MANAGER, CMP, HSTROPN #### [facility] [address] [address] [address] Miah Veloz Sodium [Moles/Vol] 141 mmol/L Normal 136-145 [facility] Comment on above: Performed By: #### B INSIDE SALES ACCOUNT MANAGER, CMP, HSTROPN #### [facility] [address] [address] [address] Miah Veloz Urea nitrogen [Mass/Vol] 32.0 mg/dL Critically high 7.0-18 .0 [facility] Comment on above: Performed By: #### B INSIDE SALES ACCOUNT MANAGER, CMP, HSTROPN #### [facility] [address] [address] [address] Miah Veloz Urea nitrogen/Creatinine [Mass ratio] 23.4 mg/mg Normal [facility] Comment on above: Performed By: #### B INSIDE SALES ACCOUNT MANAGER, CMP, HSTROPN #### [facility] [address] [address] [address] Miah Veloz ECHOCARDIO M/2D COMPLETEon 0 08-05-2022 ECHOCARDIO M/2D COMPLETE Patient: GARRY STREETER Exam Date: 08/05/2022 : 1955 Gender:M [facility] #: [id number] Family : Order #: [id number] CLICK HERE TO VIEW EXAM ECHOCARDIOGRAM REPORT [...] M.D. on 08/05/2022 at 14:32 Normal [facility] PROF 14(COMP METB)on 022 Albumin [Mass/Vol] 3.4 g/dL Normal 3.4-5.0 [facility] Comment on above: Performed By: #### B INSIDE SALES ACCOUNT MANAGER, CMP, HSTROPN #### [facility] [address] [place] [address] Dr. Miah Veloz Albumin/Globulin [Mass ratio] 0.9 {ratio} Normal [facility] Comment on above: Performed By: #### B INSIDE SALES ACCOUNT MANAGER, CMP, HSTROPN #### [facility] [address] [address] [address] Miah Veloz ALP [Catalytic activity/Vol] 73 U/L Normal 46-116 [facility] Comment on above: Performed By: #### B INSIDE SALES ACCOUNT MANAGER, CMP, HSTROPN #### [facility] [address] [address] [address] Miah Veloz ALT [Catalytic activity/Vol] 31 U/L Normal 16-63 [facility] Comment on above: Performed By: #### B INSIDE SALES ACCOUNT MANAGER, CMP, HSTROPN #### [facility] [address] [place] [address] Dr. Miah Veloz Anion gap [Moles/Vol] 13.6 mmol/L Normal [facility] Comment on above: Performed By: #### B INSIDE SALES ACCOUNT MANAGER, CMP, HSTROPN #### [facility] [address] [place] [address] Dr. Miah Veloz AST [Catalytic activity/Vol] 14 U/L Critically low 15- 37 [facility] Comment on above: Performed By: #### B INSIDE SALES ACCOUNT MANAGER, CMP, HSTROPN #### [facility] [address] [place] [address] Dr. Miah Veloz Bilirubin [Mass/Vol] 0.6 mg/dL Normal 0.2-1.0 [facility] Comment on above: Performed By: #### B INSIDE SALES ACCOUNT MANAGER, CMP, HSTROPN #### [facility] [facility] [address] [place] [address] Dr. Miah Veloz Calcium [Mass/Vol] 8.8 mg/dL Normal 8.5-10.1 [facility] Comment on above: Performed By: #### B INSIDE SALES ACCOUNT MANAGER, CMP, HSTROPN #### [facility] [address] [place] [address] Dr. Miah Veloz Chloride [Moles/Vol] 105 mmol/L Normal 98-107 [facility] Comment on above: Performed By: #### B INSIDE SALES ACCOUNT MANAGER, CMP, HSTROPN #### [facility] [address] [place] [address] Dr. Miah Veloz CO2 [Moles/Vol] 27.7 mmol/L Normal 21.0-32.0 [facility] Comment on above: Performed By: #### B INSIDE SALES ACCOUNT MANAGER, CMP, HSTROPN #### [facility] [address] [place] [address] Dr. Miah Veloz Creatinine [Mass/Vol] 1.17 mg/dL Normal 0.70-1.30 [facility] Comment on above: Performed By: #### B INSIDE SALES ACCOUNT MANAGER, CMP, HSTROPN #### [facility] [address] [place] [address] Dr. Miah Veloz EGFR-AF CITIZEN OF [place] >60 Normal >=60 [facility] Comment on above: Performed By: #### B INSIDE SALES ACCOUNT MANAGER, CMP, HSTROPN #### [facility] [address] [place] [address] Dr. Miah Veloz EGFR-NON AF CITIZEN OF [place] >60 Normal >=60 [facility] Comment on above: Performed By: #### B INSIDE SALES ACCOUNT MANAGER, CMP, HSTROPN #### [facility] [address] [place] [address] Dr. Miah Veloz Globulin (S) [Mass/Vol] 3.9 g/dL Normal [facility] Comment on above: Performed By: #### B INSIDE SALES ACCOUNT MANAGER, CMP, HSTROPN #### [facility] [address] [place] [address] Dr. Miah Veloz Glucose [Mass/Vol] 138 mg/dL Critically high 74-106 [facility] Comment on above: Performed By: #### B INSIDE SALES ACCOUNT MANAGER, CMP, HSTROPN #### [facility] [address] [place] [address] Dr. Miah Veloz Potassium [Moles/Vol] 4.3 mmol/L Normal 3.5-5.1 [facility] Comment on above: Performed By: #### B INSIDE SALES ACCOUNT MANAGER, CMP, HSTROPN #### [facility] [address] [place] [address] Dr. Miah Veloz Protein [Mass/Vol] 7.3 g/dL Normal 6.4-8.2 [facility] Comment on above: Performed By: #### B INSIDE SALES ACCOUNT MANAGER, CMP, HSTROPN #### [facility] [address] [address] [address] Miah Veloz Sodium [Moles/Vol] 142 mmol/L Normal 136-145 [facility] Comment on above: Performed By: #### B INSIDE SALES ACCOUNT MANAGER, CMP, HSTROPN #### [facility] [address] [address] [address] Miah Veloz Urea nitrogen [Mass/Vol] 25.0 mg/dL Critically high 7.0-18 .0 [facility] Comment on above: Performed By: #### B INSIDE SALES ACCOUNT MANAGER, CMP, HSTROPN #### [facility] [address] [place] [address] Dr. Miah Veloz Urea nitrogen/Creatinine [Mass ratio] 21.4 mg/mg Normal [facility] Comment on above: Performed By: #### B INSIDE SALES ACCOUNT MANAGER, CMP, HSTROPN #### [facility] [address] [address] [address] Miah Veloz US BRANDO DOP LEG [...] MURPHY GRIFFIN Date: 2022-05-14 16:51 Normal [facility] l CBC AUTO DIFFon 04-28-2022 BASO # 0.1 103/ul Normal 0.0-0.[address] [facility] Comment on above: Performed By: #### C BC #### [facility] [address] [place] [address] Dr. Miah Veloz Basophils/100 WBC (Bld) 0.7 % Normal 0.2-2.0 [facility] Comment on above: Performed By: #### C BC #### [facility] [address] [place] [address] Dr. Miah Veloz EO # 0.2 103/ul Normal 0.0-0.[address] [facility] Comment on above: Performed By: #### C BC #### [facility] [address] [place] [address] Dr. Miah Veloz Eosinophils/100 WBC (Bld) 2.9 % Normal 0.9-7.0 [facility] Comment on above: Performed By: #### C BC #### [facility] [address] [place] [address] Dr. Miah Veloz Erythrocyte distribution wid th (RBC) [Ratio] 13.2 % Normal 11.0-15.[address] [facility] Comment on above: Performed By: #### C BC #### [facility] [address] [place] [address] Dr. Miah Veloz Hematocrit (Bld) [Volume fraction] 36.9 % Critically low 42.0-54.[address] [facility] Comment on above: Performed By: #### C BC #### [facility] [address] [place] [address] Dr. Miah Veloz Hemoglobin (Bld) [Mass/Vol] 12.4 g/dL Critically low 14.0 -18.0 [facility] Comment on above: Performed By: #### C BC #### [facility] [address] [place] [address] Dr. Miah Veloz IG # 0.03 10e3/ul Normal 0.00-0.03 [facility] Comment on above: Performed By: #### C BC #### [facility] [address] [place] [address] Dr. Miah Veloz IG % 0.4 % Normal 0.0-0.[address] [facility] Comment on above: Performed By: #### C BC #### [facility] [address] [address] [address] Miah Veloz LYMPH # 1.8 103/ul Normal 1.2-3.8 [facility] Comment on above: Performed By: #### C BC #### [facility] [address] [place] [address] Dr. Miah Veloz Lymphocytes/100 WBC (Bld) 23.0 % Normal 20.5-60.0 [facility] Comment on above: Performed By: #### C BC #### [facility] [address] [place] [address] Dr. Miah Veloz MANUAL DIFF REQ NO Normal [facility] Comment on above: Performed By: #### C BC #### [facility] [address] [place] [address] Dr. Miah Veloz MCH (RBC) [Entitic mass] 32.3 pg Normal 25.9-34.0 [facility] Comment on above: Performed By: #### C BC #### [facility] [address] [place] [address] Dr. Miah Veloz MCHC (RBC) [Mass/Vol] 33.6 g/dL Normal 29.9-35.2 [facility] Comment on above: Performed By: #### C BC #### [facility] [address] [place] [address] Dr. Miah Veloz MCV (RBC) [Entitic vol] 96.1 fL Critically high 80.0-94 .0 [facility] Comment on above: Performed By: #### C BC #### [facility] [address] [place] [address] Dr. Miah Veloz MONO # 0.8 103/ul Normal 0.3-0.8 [facility] Comment on above: Performed By: #### C BC #### [facility] [address] [place] [address] Dr. Miah Veloz Monocytes/100 WBC (Bld) 10.2 % Normal 1.7-12.0 [facility] Comment on above: Performed By: #### C BC #### [facility] [address] [address] [address] Miah Veloz NEUT # 4.8 103/ul Normal 1.4-6.[address] [facility] Comment on above: Performed By: #### C BC #### [facility] [address] [address] [address] Miah Veloz Neutrophils/100 WBC (Bld) 62.8 % Normal 43.0-75.0 [facility] Comment on above: Performed By: #### C BC #### [facility] [address] [address] [address] Miah Veloz Platelet mean volume (Bld) [ Entitic vol] 10.2 fL Normal 9.5-13.[address] [facility] Comment on above: Performed By: #### C BC #### [facility] [address] [address] [address] Miah Veloz PLT 224 103/ul Normal 150-[address] [facility] Comment on above: Performed By: #### C BC #### [facility] [address] [address] [address] Miah Veloz RBC 3.84 106/ul Critically low 4.70-6.[address] [facility] Comment on above: Performed By: #### C BC #### [facility] [address] [address] [address] Miah Veloz WBC 7.7 103/ul Normal 4.0-11.[address] [facility] Comment on above: Performed By: #### C BC #### [facility] [address] [address] [address] Miah Veloz PROF CHEM 8 (BAS METB)on Anion gap [Moles/Vol] 14.4 mmol/L Normal [facility] Comment on above: Performed By: #### B INSIDE SALES ACCOUNT MANAGER, CMP, HSTROPN #### [facility] [address] [address] [address] Miah Veloz Calcium [Mass/Vol] 8.3 mg/dL Critically low 8.5-10.1 [facility] Comment on above: Performed By: #### B INSIDE SALES ACCOUNT MANAGER, CMP, HSTROPN #### [facility] [address] [address] [address] Maih Veloz Chloride [Moles/Vol] 106 mmol/L Normal 98-107 [facility] Comment on above: Performed By: #### B INSIDE SALES ACCOUNT MANAGER, CMP, HSTROPN #### [facility] [address] [address] [address] Miah Veloz CO2 [Moles/Vol] 27.0 mmol/L Normal 21.0-32.0 [facility] Comment on above: Performed By: #### B INSIDE SALES ACCOUNT MANAGER, CMP, HSTROPN #### [facility] [address] [place] [address] Dr. Miah Veloz Creatinine [Mass/Vol] 1.12 mg/dL Normal 0.70-1.30 [facility] Comment on above: Performed By: #### B INSIDE SALES ACCOUNT MANAGER, CMP, HSTROPN #### [facility] [address] [place] [address] Dr. Miah Veloz EGFR-AF CITIZEN [place] >60 Normal >=60 [facility] Comment on above: Performed By: #### B INSIDE SALES ACCOUNT MANAGER, CMP, HSTROPN #### [facility] [address] [place] [address] Dr. Miah Veloz EGFR-NON AF CITIZEN OF [place] >60 Normal >=60 [facility] Comment on above: Performed By: #### B INSIDE SALES ACCOUNT MANAGER, CMP, HSTROPN #### [facility] [address] [place] [address] Dr. iMah Veloz Glucose [Mass/Vol] 103 mg/dL Normal 74-106 [facility] Comment on above: Performed By: #### B INSIDE SALES ACCOUNT MANAGER, CMP, HSTROPN #### [facility] [address] [address] [address] Miah Veloz Potassium [Moles/Vol] 3.4 mmol/L Critically low 3.5-5.1 [facility] Comment on above: Performed By: #### B INSIDE SALES ACCOUNT MANAGER, CMP, HSTROPN #### [facility] [address] [place] [address] Dr. Miah Veloz Sodium [Moles/Vol] 144 mmol/L Normal 136-145 [facility] Comment on above: Performed By: #### B INSIDE SALES ACCOUNT MANAGER, CMP, HSTROPN #### [facility] [address] [place] [address] Dr. Miah Veloz Urea nitrogen [Mass/Vol] 21.0 mg/dL Critically high 7.0-18 .0 [facility] Comment on above: Performed By: #### B INSIDE SALES ACCOUNT MANAGER, CMP, HSTROPN #### [facility] [address] [place] [address] Dr. Miah Veloz Urea nitrogen/Creatinine [Mass ratio] 18.8 mg/mg Normal [facility] Comment on above: Performed By: #### B INSIDE SALES ACCOUNT MANAGER, CMP, HSTROPN #### [facility] [address] [place] [address] Dr. Miah Veloz CBC AUTO DIFFon 04-27-2022 BASO # 0.0 103/ul Normal 0.0-0.1 [facility] Comment on above: Performed By: #### B INSIDE SALES ACCOUNT MANAGER, CMP, HSTROPN #### [facility] [address] [place] [address] Dr. Miah Veloz Basophils/100 WBC (Bld) 0.4 % Normal 0.2-2.0 [facility] Comment on above: Performed By: #### B INSIDE SALES ACCOUNT MANAGER, CMP, HSTROPN #### [facility] [address] [place] [address] Dr. Miah Veloz EO # 0.2 103/ul Normal 0.0-0.7 [facility] Comment on above: Performed By: #### B INSIDE SALES ACCOUNT MANAGER, CMP, HSTROPN #### [facility] [address] [place] [address] Dr. Miah Veloz Eosinophils/100 WBC (Bld) 3.2 % Normal 0.9-7.0 [facility] Comment on above: Performed By: #### B INSIDE SALES ACCOUNT MANAGER, CMP, HSTROPN #### [facility] [address] [place] [address] Dr. Miah Veloz Erythrocyte distribution wid th (RBC) [Ratio] 13.6 % Normal 11.0-15.[address] [facility] Comment on above: Performed By: #### B INSIDE SALES ACCOUNT MANAGER, CMP, HSTROPN #### [facility] [address] [place] [address] Dr. Miah Veloz Hematocrit (Bld) [Volume fraction] 36.7 % Critically low 42.0-54.[address] [facility] Comment on above: Performed By: #### B INSIDE SALES ACCOUNT MANAGER, CMP, HSTROPN #### [facility] [address] [place] [address] Dr. Miah Veloz Hemoglobin (Bld) [Mass/Vol] 12.0 g/dL Critically low 14.0 -18.0 [facility] Comment on above: Performed By: #### B INSIDE SALES ACCOUNT MANAGER, CMP, HSTROPN #### [facility] [address] [place] [address] Dr. Miah Veloz IG # 0.02 10e3/ul Normal 0.00-0.03 [facility] Comment on above: Performed By: #### B INSIDE SALES ACCOUNT MANAGER, CMP, HSTROPN #### [facility] [address] [place] [address] Dr. Miah Veloz IG % 0.3 % Normal 0.0-0.[address] [facility] Comment on above: Performed By: #### B INSIDE SALES ACCOUNT MANAGER, CMP, HSTROPN #### [facility] [address] [place] [address] Dr. Miah Veloz LYMPH # 1.6 103/ul Normal 1.2-3.[address] [facility] Comment on above: Performed By: #### B INSIDE SALES ACCOUNT MANAGER, CMP, HSTROPN #### [facility] [address] [place] [address] Dr. Miah Veloz Lymphocytes/100 WBC (Bld) 22.2 % Normal 20.5-60.0 [facility] Comment on above: Performed By: #### B INSIDE SALES ACCOUNT MANAGER, CMP, HSTROPN #### [facility] [address] [place], [place] [id number] Dr. Miah Veloz MANUAL DIFF REQ NO Normal [facility] Comment on above: Performed By: #### B INSIDE SALES ACCOUNT MANAGER, CMP, HSTROPN #### [facility] [address] [place] [address] Dr. Miah Veloz MCH (RBC) [Entitic mass] 32.3 pg Normal 25.9-34.0 [facility] Comment on above: Performed By: #### B INSIDE SALES ACCOUNT MANAGER, CMP, HSTROPN #### [facility] [address] [place] [address] Dr. Miah Veloz MCHC (RBC) [Mass/Vol] 32.7 g/dL Normal 29.9-35.2 [facility] Comment on above: Performed By: #### B INSIDE SALES ACCOUNT MANAGER, CMP, HSTROPN #### [facility] [address] [place] [address] Dr. Miah Veloz MCV (RBC) [Entitic vol] 98.7 fL Critically high 80.0-94 .0 [facility] Comment on above: Performed By: #### B INSIDE SALES ACCOUNT MANAGER, CMP, HSTROPN #### [facility] [address] [place] [address] Dr. Miah Veloz MONO # 0.7 103/ul Normal 0.3-0.[address] [facility] Comment on above: Performed By: #### B INSIDE SALES ACCOUNT MANAGER, CMP, HSTROPN #### [facility] [address] [place] [address] Dr. Miah Veloz Monocytes/100 WBC (Bld) 9.1 % Normal 1.7-12.0 [facility] Comment on above: Performed By: #### B INSIDE SALES ACCOUNT MANAGER, CMP, HSTROPN #### [facility] [address] [place] [address] Dr. Miah Veloz NEUT # 4.6 103/ul Normal 1.4-6.[address] [facility] Comment on above: Performed By: #### B INSIDE SALES ACCOUNT MANAGER, CMP, HSTROPN #### [facility] [address] [place] [address] Dr. Miah Veloz Neutrophils/100 WBC (Bld) 64.8 % Normal 43.0-75.0 [facility] Comment on above: Performed By: #### B INSIDE SALES ACCOUNT MANAGER, CMP, HSTROPN #### [facility] [address] [place] [address] Dr. Miah Veloz Platelet mean volume (Bld) [ Entitic vol] 10.2 fL Normal 9.5-13.[address] [facility] Comment on above: Performed By: #### B INSIDE SALES ACCOUNT MANAGER, CMP, HSTROPN #### [facility] [address] [place] [address] Dr. Miah Veloz PLT 200 103/ul Normal 150-[address] [facility] Comment on above: Performed By: #### B INSIDE SALES ACCOUNT MANAGER, CMP, HSTROPN #### [facility] [address] [place] [address] Dr. Miah Veloz RBC 3.72 106/ul Critically low 4.70-6.[address] [facility] Comment on above: Performed By: #### B INSIDE SALES ACCOUNT MANAGER, CMP, HSTROPN #### [facility] [address] [place] [address] Dr. Miah Veloz WBC 7.1 103/ul Normal 4.0-11.0 [facility] Comment on above: Performed By: #### B INSIDE SALES ACCOUNT MANAGER, CMP, HSTROPN #### [facility] [address] [place] [address] Dr. Miah Veloz ECHOCARDIO M/2D COMPLETEon 0 04-27-2022 ECHOCARDIO M/2D COMPLETE Patient: GARRY STREETER Exam Date: 04/27/2022 : 1955 Gender:M Ordering : DR ANDREI ORONA . Admission #: [id number] Family : Order #: [id number] CLICK HERE TO VIEW EXAM ECHOCARDIOGRAM REPORT [...] Area(A4C): 22.40 cm2 Left Atrium Systolic Volume(A2C): 32939 mm3 Left Atrium Systolic Volume(A4C): 93939 mm3 Mitral Valve Mitral Valve E-Wave Peak [...] Palacios M.D. on 04/27/2022 at 16:58 Normal [facility] PROF CHEM 8 (BAS METB)on Anion gap [Moles/Vol] 13.3 mmol/L Normal [facility] Comment on above: Performed By: #### B MP #### [facility] [address] [place] [address] Dr. Miah Veloz Calcium [Mass/Vol] 8.2 mg/dL Critically low 8.5-10.1 [facility] Comment on above: Performed By: #### B MP #### [facility] [address] [place] [address] Dr. Miah Veloz Chloride [Moles/Vol] 107 mmol/L Normal 98-107 [facility] Comment on above: Performed By: #### B MP #### [facility] [address] [place] [address] Dr. Miah Veloz CO2 [Moles/Vol] 27.5 mmol/L Normal 21.0-32.0 [facility] Comment on above: Performed By: #### B MP #### [facility] [address] [place] [address] Dr. Miah Veloz Creatinine [Mass/Vol] 0.97 mg/dL Normal 0.70-1.30 [facility] Comment on above: Performed By: #### B MP #### [facility] [address] [place] [address] Dr. Miah Veloz EGFR-AF CITIZ[place] >60 Normal >=60 [facility] Comment on above: Performed By: #### B MP #### [facility] [address] [place] [address] Dr. Miah Veloz EGFR-NON AF CITIZEN OF [place] >60 Normal >=60 [facility] Comment on above: Performed By: #### B MP #### [facility] [address] [place] [address] Dr. Miah Veloz Glucose [Mass/Vol] 102 mg/dL Normal 74-106 [facility] Comment on above: Performed By: #### B MP #### [facility] [address] [address] [address] Miah Veloz Potassium [Moles/Vol] 3.8 mmol/L Normal 3.5-5.1 [facility] Comment on above: Performed By: #### B MP #### [facility] [address] [place] [address] Dr. Miah Veloz Sodium [Moles/Vol] 144 mmol/L Normal 136-145 [facility] Comment on above: Performed By: #### B MP #### [facility] [address] [place] [address] Dr. Miah Veloz Urea nitrogen [Mass/Vol] 17.0 mg/dL Normal 7.0-18.0 [facility] Comment on above: Performed By: #### B MP #### [facility] [address] [place] [address] Dr. Miah Veloz Urea nitrogen/Creatinine [Mass ratio] 17.5 mg/mg Normal [facility] Comment on above: Performed By: #### B MP #### [facility] [address] [place] [address] Dr. Miah Veloz BNPon 04-26-2022 Natriuretic peptide B (Bld) [Mass/Vol] 1105.0 pg/mL Critically high <=900.0 [facility] Comment on above: Performed By: #### B INSIDE SALES ACCOUNT MANAGER, CMP, HSTROPN #### [facility] [address] [place] [address] Dr. Miah Veloz CBC AUTO DIFFon 04-26-2022 BASO # 0.0 103/ul Normal 0.0-0.[address] [facility] Comment on above: Performed By: #### C BC #### [facility] [address] [place] [address] Dr. Miah Veloz Basophils/100 WBC (Bld) 0.6 % Normal 0.2-2.0 [facility] Comment on above: Performed By: #### C BC #### [facility] [address] [place] [address] Dr. Miah Veloz EO # 0.2 103/ul Normal 0.0-0.[address] [facility] Comment on above: Performed By: #### C BC #### [facility] [address] [place] [address] Dr. Miah Veloz Eosinophils/100 WBC (Bld) 2.1 % Normal 0.9-7.0 [facility] Comment on above: Performed By: #### C BC #### [facility] [address] [place] [address] Dr. Miah Veloz Erythrocyte distribution wid th (RBC) [Ratio] 13.7 % Normal 11.0-15.[address] [facility] Comment on above: Performed By: #### C BC #### [facility] [address] [place] [address] Dr. Miah Veloz Hematocrit (Bld) [Volume fraction] 39.3 % Critically low 42.0-54.[address] [facility] Comment on above: Performed By: #### C BC #### [facility] [address] [place] [address] Dr. Miah Veloz Hemoglobin (Bld) [Mass/Vol] 13.0 g/dL Critically low 14.0 -18.0 [facility] Comment on above: Performed By: #### C BC #### [facility] [address] [place] [address] Dr. Miah Veloz IG # 0.02 10e3/ul Normal 0.00-0.03 [facility] Comment on above: Performed By: #### C BC #### [facility] [address] [place] [address] Dr. Miah Veloz IG % 0.3 % Normal 0.0-0.[address] [facility] Comment on above: Performed By: #### C BC #### [facility] [address] [address] [address] Miah Veloz LYMPH # 1.1 103/ul Critically low 1.2-3.8 [facility] Comment on above: Performed By: #### C BC #### [facility] [address] [address] [address] Miah Veloz Lymphocytes/100 WBC (Bld) 16.1 % Critically low 20.5-6 0.0 [facility] Comment on above: Performed By: #### C BC #### [facility] [address] [address] [address] Miah Veloz MANUAL DIFF REQ NO Normal [facility] Comment on above: Performed By: #### C BC #### [facility] [address] [place] [address] Dr. Miah Veloz MCH (RBC) [Entitic mass] 32.7 pg Normal 25.9-34.0 [facility] Comment on above: Performed By: #### C BC #### [facility] [address] [address] [address] Miah Veloz MCHC (RBC) [Mass/Vol] 33.1 g/dL Normal 29.9-35.2 [facility] Comment on above: Performed By: #### C BC #### [facility] [address] [place] [address] Dr. Miah Veloz MCV (RBC) [Entitic vol] 98.7 fL Critically high 80.0-94 .0 [facility] Comment on above: Performed By: #### C BC #### [facility] [address] [address] [address] Miah Veloz MONO # 0.5 103/ul Normal 0.3-0.8 [facility] Comment on above: Performed By: #### C BC #### [facility] [address] [address] [address] Miah Veloz Monocytes/100 WBC (Bld) 7.6 % Normal 1.7-12.0 [facility] Comment on above: Performed By: #### C BC #### [facility] [address] [place] [address] Dr. Miah Veloz NEUT # 5.2 103/ul Normal 1.4-6.[address] [facility] Comment on above: Performed By: #### C BC #### [facility] [address] [address] [address] Miah Veloz Neutrophils/100 WBC (Bld) 73.3 % Normal 43.0-75.0 [facility] Comment on above: Performed By: #### C BC #### [facility] [address] [address] [address] Miah Veloz Platelet mean volume (Bld) [ Entitic vol] 10.7 fL Normal 9.5-13.[address] [facility] Comment on above: Performed By: #### C BC #### [facility] [address] [place] [address] Dr. Miah Veloz PLT 200 103/ul Normal 150-[address] [facility] Comment on above: Performed By: #### C BC #### [facility] [address] [place] [address] Dr. Miah Veloz RBC 3.98 106/ul Critically low 4.70-6.[address] [facility] Comment on above: Performed By: #### C BC #### [facility] [address] [place] [address] Dr. Miah Veloz WBC 7.1 103/ul Normal 4.0-11.[address] [facility] Comment on above: Performed By: #### C BC #### [facility] [address] [place] [address] Dr. Miah Veloz CTA CHEST WO W [...] NICK CABRALES Date: 2022-04-26 10:50 Normal [facility] Covid-19 PCR (CVDTB)on SARS-CoV-2 (COVID-19) RNA GÓMEZ+probe Ql (Unsp spec) Not detected Normal NOT DETECTED [facility] Comment on above: Result Comment: When diagnostic [...] for this test is supported by the [employer] of [employer] and Human Service's declaration that [...] longer be used). Performed By: #### B INSIDE SALES ACCOUNT MANAGER, CMP, HSTROPN #### [facility] [address] [place] [address] Dr. Miah Veloz PROF 14(COMP METB)on 022 Albumin [Mass/Vol] 3.1 g/dL Critically low 3.4-5.0 [facility] Comment on above: Performed By: #### B INSIDE SALES ACCOUNT MANAGER, CMP, HSTROPN #### [facility] [address] [place] [address] Dr. Miah Veloz Albumin/Globulin [Mass ratio] 0.9 {ratio} Normal [facility] Comment on above: Performed By: #### B INSIDE SALES ACCOUNT MANAGER, CMP, HSTROPN #### [facility] [address] [place] [address] Dr. Miah Veloz ALP [Catalytic activity/Vol] 54 U/L Normal 46-116 [facility] Comment on above: Performed By: #### B INSIDE SALES ACCOUNT MANAGER, CMP, HSTROPN #### [facility] [address] [place] [address] Dr. Miah Veloz ALT [Catalytic activity/Vol] 63 U/L Normal 16-63 [facility] Comment on above: Performed By: #### B INSIDE SALES ACCOUNT MANAGER, CMP, HSTROPN #### [facility] [address] [place] [address] Dr. Miah Veloz Anion gap [Moles/Vol] 13.9 mmol/L Normal [facility] Comment on above: Performed By: #### B INSIDE SALES ACCOUNT MANAGER, CMP, HSTROPN #### [facility] [address] [place] [address] Dr. Miah Veloz AST [Catalytic activity/Vol] 32 U/L Normal 15-37 [facility] Comment on above: Performed By: #### B INSIDE SALES ACCOUNT MANAGER, CMP, HSTROPN #### [facility] [address] [place] [address] Dr. Miah Veloz Calcium [Mass/Vol] 8.7 mg/dL Normal 8.5-10.1 [facility] Comment on above: Performed By: #### B INSIDE SALES ACCOUNT MANAGER, CMP, HSTROPN #### [facility] [address] [place] [address] Dr. Miah Veloz Chloride [Moles/Vol] 108 mmol/L Critically high 98-107 [facility] Comment on above: Performed By: #### B INSIDE SALES ACCOUNT MANAGER, CMP, HSTROPN #### [facility] [address] [place] [address] Dr. Miah Veloz CO2 [Moles/Vol] 24.3 mmol/L Normal 21.0-32.0 [facility] Comment on above: Performed By: #### B INSIDE SALES ACCOUNT MANAGER, CMP, HSTROPN #### [facility] [address] [place] [address] Dr. Miah Veloz Creatinine [Mass/Vol] 0.90 mg/dL Normal 0.70-1.30 [facility] Comment on above: Performed By: #### B INSIDE SALES ACCOUNT MANAGER, CMP, HSTROPN #### [facility] [address] [place] [address] Dr. Miah Veloz EGFR-AF CITIZEN OF [place] >60 Normal >=60 [facility] Comment on above: Performed By: #### B INSIDE SALES ACCOUNT MANAGER, CMP, HSTROPN #### [facility] [address] [place] [address] Dr. Miah Veloz EGFR-NON AF CITIZEN OF [place] >60 Normal >=60 [facility] Comment on above: Performed By: #### B INSIDE SALES ACCOUNT MANAGER, CMP, HSTROPN #### [facility] [address] [place] [address] Dr. Miah Veloz Globulin (S) [Mass/Vol] 3.6 g/dL Normal [facility] Comment on above: Performed By: #### B INSIDE SALES ACCOUNT MANAGER, CMP, HSTROPN #### [facility] [address] [place] [address] Dr. Miah Veloz Glucose [Mass/Vol] 146 mg/dL Critically high 74-106 [facility] Comment on above: Performed By: #### B INSIDE SALES ACCOUNT MANAGER, CMP, HSTROPN #### [facility] [address] [place] [address] Dr. Miah Veloz Potassium [Moles/Vol] 4.2 mmol/L Normal 3.5-5.1 [facility] Comment on above: Performed By: #### B INSIDE SALES ACCOUNT MANAGER, CMP, HSTROPN #### [facility] [address] [place] [address] Dr. Miah Veloz Protein [Mass/Vol] 6.7 g/dL Normal 6.4-8.2 [facility] Comment on above: Performed By: #### B INSIDE SALES ACCOUNT MANAGER, CMP, HSTROPN #### [facility] [address] [place] [address] Dr. Miah Veloz Sodium [Moles/Vol] 142 mmol/L Normal 136-145 [facility] Comment on above: Performed By: #### B INSIDE SALES ACCOUNT MANAGER, CMP, HSTROPN #### [facility] [address] [place] [address] Dr. Miah Veloz Urea nitrogen [Mass/Vol] 19.0 mg/dL Critically high 7.0-18 .0 [facility] Comment on above: Performed By: #### B INSIDE SALES ACCOUNT MANAGER, CMP, HSTROPN #### [facility] [address] [place] [address] Dr. Miah Veloz Urea nitrogen/Creatinine [Mass ratio] 21.1 mg/mg Normal [facility] Comment on above: Performed By: #### B INSIDE SALES ACCOUNT MANAGER, CMP, HSTROPN #### [facility] [address] [place] [address] Dr. Miah Veloz PROTIMEon 04-26-2022 INR Coag (PPP) [Relative time] 1.20 {INR} Normal [facility] Comment on above: Performed By: #### B INSIDE SALES ACCOUNT MANAGER, CMP, HSTROPN #### [facility] [address] [place] [address] Dr. Miah Veloz INR GUIDELINES SEE BELOW Normal [facility] Comment on above: Result Comment: JENNIFER RED INR: 2.0 - 3.0 CONDITIONS NOT LISTED BELOW 2.5 - 3.5 FOR PROSTHETIC HEART VALVE REPLACEMENT 2.5 - 3.5 RECURRENT THROMBOSIS Performed By: #### B INSIDE SALES ACCOUNT MANAGER, CMP, HSTROPN #### [facility] [address] [place] [address] Dr. Miah Veloz PT Coag (PPP) [Time] 12.8 s Critically high 9.0-11.6 [facility] Comment on above: Performed By: #### B INSIDE SALES ACCOUNT MANAGER, CMP, HSTROPN #### [facility] [address] [place], [place] [address] Dr. Miah Veloz PTTon 04-26-2022 aPTT Coag (Bld) [Time] 28.5 s Normal 22.3-36.2 [facility] [place] Comment on above: Performed By: #### B INSIDE SALES ACCOUNT MANAGER, CMP, HSTROPN #### [facility] [address] [place], [place] [address] Dr. Miah Veloz TROPONIN, HIGH SENSITIVITYon 04-26-2022 HSTROP 24.7 pg/mL Normal 4.0-76.1 [facility] Comment on above: Result Comment: CUT- OFF POINTS HAVE BEEN ESTABLISHED BASED ON THE FOURTH UNIVERSAL DEFINITIONS OF MYOCARDIAL INFARCTION. THE UPPER REFERENCE LIMIT (URL) OF TROPONIN, DEFINED THE 99TH PERCENTILE OF cTnI DISTRIBUTION IN A REFERENCE POPULATION, HAS BEEN CONFIRMED THE DECISION THRESHOLD FOR CA DIAGNOSIS. Performed By: #### B INSIDE SALES ACCOUNT MANAGER, CMP, HSTROPN #### [facility] [address] [address] [address] Miah Veloz Encounters Encounter Date Encounter Type Care Provider Facility Start: 10-22-2023 End: 10-22-2023 ambulatory MEET [facility] Start: 08-30-2023 End: 08-30-2023 ambulatory MARTIN SPENCER [facility] Start: 03-22-2023 End: 03-22-2023 ambulatory TACHO [facility] Start: 03-01-2023 End: 03-02-2023 ambulatory SARAH RAMIREZ Facility:[facility] Start: 02-03-2023 End: 02-03-2023 ambulatory SARAH RAMIREZ [facility] Start: 01-15-2023 End: 01-16-2023 ambulatory LUZMA PHAM Facility:[facility] Start: 10-31-2022 Encounter for preprocedural laboratory examination DR T[place]IA [place] . [facility] Start: 10-28-2022 End: 10-29-2022 ambulatory TAVIA [place] Facility:[facility] Start: 10-28-2022 End: 10-28-[address] [place] . Facility:[facility] Start: 10-24-2022 End: 10-25-[address] [place] . Facility:[facility] Start: 10-24-2022 End: 10-25-2022 Encounter for preprocedural laboratory examination DR [place] . Facility:[facility] Start: 08-12-2022 Encounter for other preprocedural examination TACHO HOLLAND [facility] Start: 08-10-2022 End: 08-11-2022 ambulatory LEANDROBARPatience PRADEEPSYLVIABARBARA Facility:[facility] Start: 08-10-2022 End: 08-11-2022 Encounter for other preprocedural examination TACHO HOLLAND Facility:[facility] Start: 08-05-2022 End: 08-06-2022 ambulatory TACHO HOLLAND Facility:[facility] Start: 05-14-2022 End: 05-15-[address] DOCTOR FREED Facility:[facility] Start: 04-26-2022 End: 04-28-2022 Evaluation and management of inpatient [facility] Facility:[facility] Procedures Date Procedure Procedure Detail Performing Clinician Start: 03-22-2023 Follow-up visit Follow-up TACHO HOLLAND Payers Date Payer Category Payer Medicare [id number] 1961 Unknown [id number] 1955 Unknown [id number] .16.84 [id number] 1955 Unknown [id number] .. [id number] 1955 Unknown [id number] ..[id number] 1953 Unknown [id number] ..[id number] 1953 Unknown [id number] ..[id number] 1953 Unknown [id number] ..[id number] 1953 Unknown [id number] 2..84 [id number] 1953 Unknown [id number] 2.16.84 [id number] 1953 Unknown [id number] 2.16.84 [id number] Clinical Notes 04-26-2022 to 10-22-2023 Note Date & Type Note Facility 10-22-2023 Note Patient here for [facility] for afib w/ RVR. He was sent [...] All other systems reviewed and are negative. [facility] 08-30-2023 Note [facility] CARDIOLOGY PROGR ESS NOTE HPI: Garry Streeter is a 68 y.o. male past medical history of heart failure improved ejection fraction, paroxysmal atrial fibrillation, hypertension, and valvular heart disease seen in follow-up. Update: 03/22/2023 Pt is here for med check F/U for [facility] pt states he stopped taking [...] Conclusions: Biphasic cardio (more content not included)... [facility] 08-30-2023 Note Patient here for 6 [...] All other systems reviewed and are negative. [facility] 03-22-2023 Note [facility]TP CARDIOLOGY PROGR ESS [...] normal. Mild aor (more content not included)... [facility] 02-03-2023 Note No edema today [facility] 02-03-2023 Note Stable [facility] 02-03-2023 Note EKG today-Sinus manny ycardia with PACs/PVCs- And artifact, Otherwise normal EKG He is adamant he is still taking Eliquis anticoagulation, Pharmacy denies that he is filled Eliquis or metoprolol in the last 6 months. Discussed with patient risk for stroke with paroxysmal atrial fib- He states he has cardia Monitor at home and he has not had any A-fib [facility] 02-03-2023 Note [facility] I-II Currently appears [...] Staff To obtain recent labs from PCP [facility] 02-03-2023 Note [facility]TP CARDIOLOGY PROGR ESS NOTE HPI: Garry Streeter is a 67 y.o. male here for Med Refill, Atrial Fibrillation, and Congestive Heart Failure Known h/o Chronic systolic heart failure, Paroxysmal atrial fib, edema, and noncompliance to med regimen. Pt is here for med check F/U for [facility] pt states he stopped taking [...] this time. Staff called pharmacy- [facility] and patient states this is his only [...] Right ventricular syst (more content not included)... [facility] 02-03-2023 Note Pt is here for med c heck F/U [facility] pt states he stop take some of his meds due to having Diarrhea more then 3 times a day pt also stated he was having problems walking due to gout. Review of Systems Gastrointestinal: Positive for diarrhea. All other systems reviewed and are negative. [facility] 04-26-2022 Note PROCEDURE: XR KNEE L T 4V or > COMPARISON: None. HISTORY: Swelling FINDINGS: BONES:No fracture, acute abnormality, or significant arthropathy. SOFT TISSUES:Negative. No visible soft tissue swelling. EFFUSION:Moderate suprapatellar joint effusion OTHER: Negative. IMPRESSION: Moderate joint effusion Electronically authenticated by: NICK CABRALES Date: 2022-04-26 10:09 [facility] Summary Purpose Family History No Family History Records FoundNo Family History Records FoundNo Family History Records Found Advance Directives No Advanced Directives Records FoundNo Advanced Directives Records FoundNo Advanced Directives Records Found Additional Source Comments (unrecognized sect ion and content) No Status Records FoundNo Status Records FoundNo Status Records Found INFORMATION SOURCE (unrecogn ized section and content) DATE CREATED AUTHOR 10/30/2022 [facility] DATE CREATED AUTHOR AUTHOR'S ORGANIZ ATION 03/17/2023 [facility] DATE CREATED AUTHOR AUTHOR'S ORGANIZ ATION 11/07/2023 [facility] FOR RECORDS PERTAINING TO PATIENTS WHO ARE [...] BE BASED ON THE PRIMARY CLINICAL RECORDS. [employer] [facility]. provides no warranty or guarantee of the accuracy or completeness of information in this document.
--- OUTSIDE RECORDS SUMMARY | 2023-11-09 21:10 | XMS_ITS | CCD ---
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 Role Phone TAVIA [place] Attending Unavailable [...] Acetaminophen; Translations: [ACETAMINOPHEN] Drug Allergy 09-15-2022 [facility] Repository Problems Active Problems Problem Classification [...] source) residential (current) use of anticoagulants; Translations: [CARE HOME CURRNT USE ANTICOAGULANTS] Onset: 11-01-2022 Episodic Other [...] on it so should be fine Normal [facility] Telephoneon 11-04-2023 Telephone [id number] Ben Streeter W 1955 M Date Provider Department Center 11/04/2023 MONICA BARRIENTOS CARD [facility] Family History Problem Relation Age of Onset Colon cancer Brother Family Status - Relation Status Age at Brother Normal [facility] Office Visiton 08-30-2023 Follow-up visit [id number] Ben Streeter rt W 1955 M Date Provider Department Center 08/30/2023 [id number] SPENCER [facility] Esha Champion Family History Problem Relation Age of Onset Colon cancer Brother Family Status - Relation Status Age at Brother Level of Service:45043 LA OFFICE/OUTPATIENT ESTABLISHED MOD MDM 30-39 MIN Normal [facility] Office Visiton 03-22-2023 Follow-up visit [id number] Ben Streeter rt W 1955 M Date Provider Department Center 03/22/2023 [id number] LEANDROSHRADDHA [facility] Family History Problem Relation Age of Onset Colon cancer Brother Family Status - Relation Status Age at Brother Level of Service:21644 LA OFFICE/OUTPATIENT ESTABLISHED MOD MDM 30-39 MIN Reason for Visit and Comments: Follow-up [795878] - f/u echo Normal [facility] ECHOCARDIO M/2D COMPLETEon 0 03-01-2023 ECHOCARDIO M/2D COMPLETE Patient: GARRY STREETER Exam Date: 03/01/2023 : 1955 Gender:M Ordering : SARAH RAMIREZ Admission #: [id number] Family : WARREN JOYNER ENDBAND SIZER-C Order #: [id number] CLICK HERE TO VIEW EXAM ECHOCARDIOGRAM REPORT [...] Baumann M.D. on 03/01/2023 at 09:21 Normal [facility] Office Visiton 02-03-2023 Follow-up visit [id number] Ben Streeter rt W 1955 M Date Provider Department Center 02/03/2023 SARAH KHAN [facility] Family History Problem Relation Age of Onset Colon cancer Brother Family Status - Relation Status Age at Brother Level of Service:59752 LA OFFICE/OUTPATIENT ESTABLISHED MOD MDM 30-39 MIN Reason for Visit and Comments: Med Refill [219043] Atrial Fibrillation [80] Congestive Heart Failure [127] Normal [facility] BNPon 01-15-2023 Natriuretic peptide B (Bld) [Mass/Vol] 20.0 pg/mL Normal <=900.0 [facility] pitri Comment on above: Performed By: #### B ENDBAND SIZER, MG, CMP #### [facility] [address] [place] [address] Dr. Miah Veloz HEMOGRAM AND PLATELon 2022 Hematocrit (Bld) [Volume fraction] 41.3 % Critically low 42.0-54.0 [facility] Comment on above: Performed By: #### B ENDBAND SIZER, CMP, HSTROPN #### [facility] [address] [place] [address] Dr. Miah Veloz Hemoglobin (Bld) [Mass/Vol] 14.2 g/dL Normal 14.0-18. 0 [facility] Comment on above: Performed By: #### B ENDBAND SIZER, CMP, HSTROPN #### [facility] [address] [address] [address] Miah Veloz MCH (RBC) [Entitic mass] 31.5 pg Normal 25.9-34.0 [facility] Comment on above: Performed By: #### B ENDBAND SIZER, CMP, HSTROPN #### [facility] [address] [place] [address] Dr. Miah Veloz MCHC (RBC) [Mass/Vol] 34.4 g/dL Normal 29.9-35.2 [facility] Comment on above: Performed By: #### B ENDBAND SIZER, CMP, HSTROPN #### [facility] [address] [place] [address] Dr. Miah Veloz MCV (RBC) [Entitic vol] 91.6 fL Normal 80.0-94.0 [facility] Comment on above: Performed By: #### B ENDBAND SIZER, CMP, HSTROPN #### [facility] [address] [place] [address] Dr. Miah Veloz PLT 173 103/ul Normal 150-450 [facility] Comment on above: Performed By: #### B ENDBAND SIZER, CMP, HSTROPN #### [facility] [address] [place] [address] Dr. Miah Veloz RBC 4.51 106/ul Critically low 4.70-6.10 [facility] Comment on above: Performed By: #### B ENDBAND SIZER, CMP, HSTROPN #### [facility] [address] [place] [address] Dr. Miah Veloz WBC 5.8 103/ul Normal 4.0-11.0 [facility] Comment on above: Performed By: #### B ENDBAND SIZER, CMP, HSTROPN #### [facility] [address] [place] [address] Dr. Miah Veloz MAGNESIUMon 01-15-2023 Magnesium [Mass/Vol] 1.9 mg/dL Normal 1.8-2.4 [facility] Comment on above: Performed By: #### B ENDBAND SIZER, MG, CMP #### [facility] [address] [place] [address] Dr. Miah Veloz PROF 14(COMP METB)on 023 Albumin [Mass/Vol] 3.8 g/dL Normal 3.4-5.0 [facility] Comment on above: Performed By: #### B ENDBAND SIZER, MG, CMP #### [facility] [address] [place] [address] Dr. Miah Veloz Albumin/Globulin [Mass ratio] 0.9 {ratio} Normal [facility] Comment on above: Performed By: #### B ENDBAND SIZER, MG, CMP #### [facility] [address] [place] [address] Dr. Miah Veloz ALP [Catalytic activity/Vol] 86 U/L Normal 46-116 [facility] Comment on above: Performed By: #### B ENDBAND SIZER, MG, CMP #### [facility] [address] [place] [address] Dr. Miah Veloz ALT [Catalytic activity/Vol] 26 U/L Normal 16-63 [facility] Comment on above: Performed By: #### B ENDBAND SIZER, MG, CMP #### [facility] [address] [place] [address] Dr. Miah Veloz Anion gap [Moles/Vol] 11.3 mmol/L Normal [facility] Comment on above: Performed By: #### B ENDBAND SIZER, MG, CMP #### [facility] [address] [place] [address] Dr. Miah Veloz AST [Catalytic activity/Vol] 18 U/L Normal 15-37 [facility] Comment on above: Performed By: #### B ENDBAND SIZER, MG, CMP #### [facility] [address] [place] [address] Dr. Miah Veloz Bilirubin [Mass/Vol] 0.6 mg/dL Normal 0.2-1.0 [facility] Comment on above: Performed By: #### B ENDBAND SIZER, MG, CMP #### [facility] [address] [place] [address] Dr. Miah Veloz Calcium [Mass/Vol] 9.4 mg/dL Normal 8.5-10.1 [facility] Comment on above: Performed By: #### B ENDBAND SIZER, MG, CMP #### [facility] [address] [place] [address] Dr. Miah Veloz Chloride [Moles/Vol] 105 mmol/L Normal 98-107 [facility] Comment on above: Performed By: #### B ENDBAND SIZER, MG, CMP #### [facility] [address] [place] [address] Dr. Miah Veloz CO2 [Moles/Vol] 30.2 mmol/L Normal 21.0-32.0 [facility] Comment on above: Performed By: #### B ENDBAND SIZER, MG, CMP #### [facility] [address] [place] [address] Dr. Miah Veloz Creatinine [Mass/Vol] 0.88 mg/dL Normal 0.70-1.30 [facility] Comment on above: Performed By: #### B ENDBAND SIZER, MG, CMP #### [facility] [address] [place] [address] Dr. Miah Veloz EGFR-AF IRISH >60 Normal >=60 [facility] Comment on above: Performed By: #### B ENDBAND SIZER, MG, CMP #### [facility] [address] [place] [address] Dr. Miah Veloz EGFR-NON AF IRISH >60 Normal >=60 [facility] Comment on above: Performed By: #### B ENDBAND SIZER, MG, CMP #### [facility] [address] [place] [address] Dr. Miah Veloz Globulin (S) [Mass/Vol] 4.1 g/dL Normal [facility] Comment on above: Performed By: #### B ENDBAND SIZER, MG, CMP #### [facility] [address] [place] [address] Dr. Miah Veloz Glucose [Mass/Vol] 98 mg/dL Normal 74-106 [facility] Comment on above: Performed By: #### B ENDBAND SIZER, MG, CMP #### [facility] [address] [place] [address] Dr. Miah Veloz Potassium [Moles/Vol] 4.5 mmol/L Normal 3.5-5.1 [facility] Comment on above: Performed By: #### B ENDBAND SIZER, MG, CMP #### [facility] [address] [place] [address] Dr. Miah Veloz Protein [Mass/Vol] 7.9 g/dL Normal 6.4-8.2 [facility] Comment on above: Performed By: #### B ENDBAND SIZER, MG, CMP #### [facility] [address] [place] [address] Dr. Miah Veloz Sodium [Moles/Vol] 142 mmol/L Normal 136-145 [facility] Comment on above: Performed By: #### B ENDBAND SIZER, MG, CMP #### [facility] [address] [place] [address] Dr. Miah Veloz Urea nitrogen [Mass/Vol] 15.0 mg/dL Normal 7.0-18.0 [facility] Comment on above: Performed By: #### B ENDBAND SIZER, MG, CMP #### [facility] [address] [place] [address] Dr. Miah Veloz Urea nitrogen/Creatinine [Mass ratio] 17.0 mg/mg Normal [facility] Comment on above: Performed By: #### B ENDBAND SIZER, MG, CMP #### [facility] [address] [place] [address] Dr. Miah Veloz XR CHEST 2 Von [...] LUZMA PHAM Date: 2023-01-15 12:47 Normal [facility] SURGICAL PATH REPORTon 10-29 SURGICAL PATH REPORT [facility] Department of Pathology [address] [place] [id number] [phone] Name: GARRY STREETER : 1955 Financial [id number] Number: Gender Male Locatio [place] : n: Admit 67 years Attending TAVIA [place] Age: Provider: Ordering TAVIA [place] Provider: Consulti Surgical Pathology Report ng: ACCESSION: COLLECTED DATE/TIME: RECEIVED DATE/TIME: PATHOLOGIST: [id number] 10/28/2022 11:24 EST 10/28/2022 11:24 EST MATT PELAEZ MD Final Diagnosis Report for [facility] [place] (A) SIGMOID POLYP AT 40 CM: [...] ____ Print 10/29/2022 14:17 EST Number: Date/Time: [facility] Department of Pathology [address] [place] [id number] Name: GARRY STREETER : 1955 Financial [id number] Number: Gender Male Dimas BORJAS [place] : n: Admit 67 years Attending TAVIA OH Age: Provider: Ordering TAVIA OH Provider: Mikei Surgical Pathology Report ng: ACCESSION: COLLECTED DATE/TIME: RECEIVED DATE/TIME: PATHOLOGIST: [id number] 10/28/2022 11:24 EST 10/28/2022 11:24 EST MATT [...] MP/ald 10/28/2022 Tissue pathology report for: [facility], [address] [place] [address]; PATHOLOGY SERVICES PROVIDED BY [employer] (CLIA #[id number]) in cooperation with [facility] at [address] [place] [address] ( CLIA #[id number]) Codes CPT CODE: 87451H2 ____ Print 10/29/2022 14:17 EST Number: Date/Time: [facility] Comment on above: Performed By: #### 9 [id number] #### [facility] [address] [place] [address] Radiation Oncology Therapist: Matt Pelaez MD Covid-19 PCR ([facility]on SARS-CoV-2 (COVID-19) RNA GÓMEZ+probe Ql (Unsp spec) Not detected Normal NOT DETECTED [facility] Comment on above: Result Comment: This test is not yet approved or cleared by the [place] FDA. When there are no FDA-approved or cleared tests available, and other criteria are met, FDA can make tests available under an emergency access mechanism called an Emergency Use Authorization (EUA). The EUA for this test is supported by the [facility] of Health and Human Service's (HHS's) declaration [...] SARS-CoV-2. Performed By: #### C VDTBH #### [facility] [address] [place] [address] Dr. Miah Veloz CBC AUTO DIFFon 08-10-2022 BASO # 0.1 103/ul Normal 0.0-0.1 [facility] ospital Comment on above: Performed By: #### B ENDBAND SIZER, CMP, HSTROPN #### [facility] [address] [address] [address] Miah Veloz Basophils/100 WBC (Bld) 0.7 % Normal 0.2-2.0 [facility] Comment on above: Performed By: #### B ENDBAND SIZER, CMP, HSTROPN #### [facility] [address] [place] [address] Dr. Miah Veloz EO # 0.4 103/ul Normal 0.0-0.7 [facility] Comment on above: Performed By: #### B ENDBAND SIZER, CMP, HSTROPN #### [facility] [address] [place] [address] Dr. Miah Veloz Eosinophils/100 WBC (Bld) 4.1 % Normal 0.9-7.0 [facility] Comment on above: Performed By: #### B ENDBAND SIZER, CMP, HSTROPN #### [facility] [address] [place] [address] Dr. Miah Veloz Erythrocyte distribution wid th (RBC) [Ratio] 16.0 % Critically high 11.0-15.0 [facility] pital Comment on above: Performed By: #### B ENDBAND SIZER, CMP, HSTROPN #### [facility] [address] [place] [address] Dr. Miah Veloz Hematocrit (Bld) [Volume fraction] 41.2 % Critically low 42.0-54.0 [facility] pital Comment on above: Performed By: #### B ENDBAND SIZER, CMP, HSTROPN #### [facility] [address] [place] [address] Dr. Miah Veloz Hemoglobin (Bld) [Mass/Vol] 14.1 g/dL Normal 14.0-18. 0 [facility] Comment on above: Performed By: #### B ENDBAND SIZER, CMP, HSTROPN #### [facility] [address] [place] [address] Dr. Miah Veloz IG # 0.03 10e3/ul Normal 0.00-0.03 [facility] Comment on above: Performed By: #### B ENDBAND SIZER, CMP, HSTROPN #### [facility] [address] [place] [address] Dr. Miah Veloz IG % 0.3 % Normal 0.0-0.5 [facility] ospital Comment on above: Performed By: #### B ENDBAND SIZER, CMP, HSTROPN #### [facility] [address] [place] [address] Dr. Miah Veloz LYMPH # 2.8 103/ul Normal 1.2-3.8 [facility] Comment on above: Performed By: #### B ENDBAND SIZER, CMP, HSTROPN #### [facility] [address] [place] [address] Dr. Miah Veloz Lymphocytes/100 WBC (Bld) 28.5 % Normal 20.5-60.0 [facility] Comment on above: Performed By: #### B ENDBAND SIZER, CMP, HSTROPN #### [facility] [address] [place] [address] Dr. Miah Veloz MANUAL DIFF REQ NO Normal [facility] Comment on above: Performed By: #### B ENDBAND SIZER, CMP, HSTROPN #### [facility] [address] [place] [address] Dr. Miah Veloz MCH (RBC) [Entitic mass] 32.4 pg Normal 25.9-34.0 [facility] Comment on above: Performed By: #### B ENDBAND SIZER, CMP, HSTROPN #### [facility] [address] [place] [address] Dr. Miah Veloz MCHC (RBC) [Mass/Vol] 34.2 g/dL Normal 29.9-35.2 [facility] Comment on above: Performed By: #### B ENDBAND SIZER, CMP, HSTROPN #### [facility] [address] [place] [address] Dr. Miah Veloz MCV (RBC) [Entitic vol] 94.7 fL Critically high 80.0-94 .0 [facility] Comment on above: Performed By: #### B ENDBAND SIZER, CMP, HSTROPN #### [facility] [address] [place] [address] Dr. Miah Veloz MONO # 0.8 103/ul Normal 0.3-0.8 [facility] Comment on above: Performed By: #### B ENDBAND SIZER, CMP, HSTROPN #### [facility] [address] [place] [address] Dr. Miah Veloz Monocytes/100 WBC (Bld) 7.6 % Normal 1.7-12.0 [facility] Comment on above: Performed By: #### B ENDBAND SIZER, CMP, HSTROPN #### [facility] [address] [place] [address] Dr. Miah Veloz NEUT # 5.8 103/ul Normal 1.4-6.5 [facility] ospital Comment on above: Performed By: #### B ENDBAND SIZER, CMP, HSTROPN #### [facility] [address] [place] [address] Dr. Miah Veloz Neutrophils/100 WBC (Bld) 58.8 % Normal 43.0-75.0 [facility] Comment on above: Performed By: #### B ENDBAND SIZER, CMP, HSTROPN #### [facility] [address] [place] [address] Dr. Miah Veloz Platelet mean volume (Bld) [ Entitic vol] 10.3 fL Normal 9.5-13.5 [facility] pital Comment on above: Performed By: #### B ENDBAND SIZER, CMP, HSTROPN #### [facility] [address] [place] [address] Dr. Miah Veloz PLT 184 103/ul Normal 150-450 [facility]ital Comment on above: Performed By: #### B ENDBAND SIZER, CMP, HSTROPN #### [facility] [address] [place] [address] Dr. Miah Veloz RBC 4.35 106/ul Critically low 4.70-6.10 [facility] Comment on above: Performed By: #### B ENDBAND SIZER, CMP, HSTROPN #### [facility] [address] [place] [address] Dr. Miah Veloz WBC 9.9 103/ul Normal 4.0-11.0 [facility] o[facility]ital Comment on above: Performed By: #### B ENDBAND SIZER, CMP, HSTROPN #### [facility] [address] [place] [address] Dr. Miah Veloz PROF CHEM 8 (BAS METB)on Anion gap [Moles/Vol] 13.2 mmol/L Normal [facility] Comment on above: Performed By: #### B ENDBAND SIZER, CMP, HSTROPN #### [facility] [address] [place] [address] Dr. Miah Veloz Calcium [Mass/Vol] 8.8 mg/dL Normal 8.5-10.1 [facility] Comment on above: Performed By: #### B ENDBAND SIZER, CMP, HSTROPN #### [facility] [address] [place] [address] Dr. Miah Veloz Chloride [Moles/Vol] 107 mmol/L Normal 98-107 [facility] Comment on above: Performed By: #### B ENDBAND SIZER, CMP, HSTROPN #### [facility] [address] [place] [address] Dr. Miah Veloz CO2 [Moles/Vol] 25.5 mmol/L Normal 21.0-32.0 [facility] Comment on above: Performed By: #### B ENDBAND SIZER, CMP, HSTROPN #### [facility] [address] [place] [address] Dr. Miah Veloz Creatinine [Mass/Vol] 1.37 mg/dL Critically high 0.70-1.30 [facility] Comment on above: Performed By: #### B ENDBAND SIZER, CMP, HSTROPN #### [facility] [address] [place] [address] Dr. Miah Veloz EGFR-AF IRISH >60 Normal >=60 [facility] Comment on above: Performed By: #### B ENDBAND SIZER, CMP, HSTROPN #### [facility] [address] [place] [address] Dr. Miah Veloz EGFR-NON AF IRISH 52 mL/min/1.73m2 Critically low >=60 [facility] Comment on above: Performed By: #### B ENDBAND SIZER, CMP, HSTROPN #### [facility] [address] [place] [address] Dr. Miah Veloz Glucose [Mass/Vol] 103 mg/dL Normal 74-106 [facility] Comment on above: Performed By: #### B ENDBAND SIZER, CMP, HSTROPN #### [facility] [address] [place] [address] Dr. Miah Veloz Potassium [Moles/Vol] 4.7 mmol/L Normal 3.5-5.1 [facility] Comment on above: Performed By: #### B ENDBAND SIZER, CMP, HSTROPN #### [facility] [address] [address] [address] Miah Veloz Sodium [Moles/Vol] 141 mmol/L Normal 136-145 [facility] Comment on above: Performed By: #### B ENDBAND SIZER, CMP, HSTROPN #### [facility] [address] [address] [address] Miah Veloz Urea nitrogen [Mass/Vol] 32.0 mg/dL Critically high 7.0-18 .0 [facility] Comment on above: Performed By: #### B ENDBAND SIZER, CMP, HSTROPN #### [facility] [address] [address] [address] Miah Veloz Urea nitrogen/Creatinine [Mass ratio] 23.4 mg/mg Normal [facility] Comment on above: Performed By: #### B ENDBAND SIZER, CMP, HSTROPN #### [facility] [address] [address] [address] Miah Veloz ECHOCARDIO M/2D COMPLETEon 0 08-05-2022 ECHOCARDIO M/2D COMPLETE Patient: GARRY STREETER Exam Date: 08/05/2022 : 1955 Gender:M [facility] #: [id number] Family : Order #: [id number] CLICK HERE TO VIEW EXAM ECHOCARDIOGRAM REPORT [...] M.D. on 08/05/2022 at 14:32 Normal [facility] PROF 14(COMP METB)on 022 Albumin [Mass/Vol] 3.4 g/dL Normal 3.4-5.0 [facility] Comment on above: Performed By: #### B ENDBAND SIZER, CMP, HSTROPN #### [facility] [address] [place] [address] Dr. Miah Veloz Albumin/Globulin [Mass ratio] 0.9 {ratio} Normal [facility] Comment on above: Performed By: #### B ENDBAND SIZER, CMP, HSTROPN #### [facility] [address] [address] [address] Miah Veloz ALP [Catalytic activity/Vol] 73 U/L Normal 46-116 [facility] Comment on above: Performed By: #### B ENDBAND SIZER, CMP, HSTROPN #### [facility] [address] [address] [address] Miah Veloz ALT [Catalytic activity/Vol] 31 U/L Normal 16-63 [facility] Comment on above: Performed By: #### B ENDBAND SIZER, CMP, HSTROPN #### [facility] [address] [place] [address] Dr. Miah Veloz Anion gap [Moles/Vol] 13.6 mmol/L Normal [facility] Comment on above: Performed By: #### B ENDBAND SIZER, CMP, HSTROPN #### [facility] [address] [place] [address] Dr. Miah Veloz AST [Catalytic activity/Vol] 14 U/L Critically low 15- 37 [facility] Comment on above: Performed By: #### B ENDBAND SIZER, CMP, HSTROPN #### [facility] [address] [place] [address] Dr. Miah Veloz Bilirubin [Mass/Vol] 0.6 mg/dL Normal 0.2-1.0 [facility] Comment on above: Performed By: #### B ENDBAND SIZER, CMP, HSTROPN #### [facility] [address] [place] [address] Dr. Miah Veloz Calcium [Mass/Vol] 8.8 mg/dL Normal 8.5-10.1 [facility] Comment on above: Performed By: #### B ENDBAND SIZER, CMP, HSTROPN #### [facility] [address] [place] [address] Dr. Miah Veloz Chloride [Moles/Vol] 105 mmol/L Normal 98-107 [facility] Comment on above: Performed By: #### B ENDBAND SIZER, CMP, HSTROPN #### [facility] [address] [place] [address] Dr. Miah Veloz CO2 [Moles/Vol] 27.7 mmol/L Normal 21.0-32.0 [facility] Comment on above: Performed By: #### B ENDBAND SIZER, CMP, HSTROPN #### [facility] [address] [place] [address] Dr. Miah Veloz Creatinine [Mass/Vol] 1.17 mg/dL Normal 0.70-1.30 [facility] [facility] Comment on above: Performed By: #### B ENDBAND SIZER, CMP, HSTROPN #### [facility] [address] [place] [address] Dr. Miah Veloz EGFR-AF IRISH >60 Normal >=60 [facility] Comment on above: Performed By: #### B ENDBAND SIZER, CMP, HSTROPN #### [facility] [address] [place] [address] Dr. Miha Veloz EGFR-NON AF IRISH >60 Normal >=60 [facility] Comment on above: Performed By: #### B ENDBAND SIZER, CMP, HSTROPN #### [facility] [address] [place] [address] Dr. Miah Veloz Globulin (S) [Mass/Vol] 3.9 g/dL Normal [facility] Comment on above: Performed By: #### B ENDBAND SIZER, CMP, HSTROPN #### [facility] [address] [place] [address] Dr. Miah Veloz Glucose [Mass/Vol] 138 mg/dL Critically high 74-106 [facility] Comment on above: Performed By: #### B ENDBAND SIZER, CMP, HSTROPN #### [facility] [address] [place] [address] Dr. Miah Veloz Potassium [Moles/Vol] 4.3 mmol/L Normal 3.5-5.1 [facility] Comment on above: Performed By: #### B ENDBAND SIZER, CMP, HSTROPN #### [facility] [address] [place] [address] Dr. Miah Veloz Protein [Mass/Vol] 7.3 g/dL Normal 6.4-8.2 [facility] Comment on above: Performed By: #### B ENDBAND SIZER, CMP, HSTROPN #### [facility] [address] [address] [address] Miah Veloz Sodium [Moles/Vol] 142 mmol/L Normal 136-145 [facility] Comment on above: Performed By: #### B ENDBAND SIZER, CMP, HSTROPN #### [facility] [address] [address] [address] Miah Veloz Urea nitrogen [Mass/Vol] 25.0 mg/dL Critically high 7.0-18 .0 [facility] Comment on above: Performed By: #### B ENDBAND SIZER, CMP, HSTROPN #### [facility] [address] [place] [address] Dr. Miah Veloz Urea nitrogen/Creatinine [Mass ratio] 21.4 mg/mg Normal [facility] Comment on above: Performed By: #### B ENDBAND SIZER, CMP, HSTROPN #### [facility] [address] [address] [address] Miah Veloz US BRANDO DOP LEG [...] MURPHY GRIFFIN Date: 2022-05-14 16:51 Normal [facility] CBC AUTO DIFFon 04-28-2022 BASO # 0.1 103/ul Normal 0.0-0.1 [facility] Comment on above: Performed By: #### C BC #### [facility] [address] [place] [address] Dr. Miah Veloz Basophils/100 WBC (Bld) 0.7 % Normal 0.2-2.0 [facility] Comment on above: Performed By: #### C BC #### [facility] [address] [place] [address] Dr. Miah Veloz EO # 0.2 103/ul Normal 0.0-0.7 [facility] Comment on above: Performed By: #### C BC #### [facility] [address] [place] [address] Dr. Miah Veloz Eosinophils/100 WBC (Bld) 2.9 % Normal 0.9-7.0 [facility] Comment on above: Performed By: #### C BC #### [facility] [address] [place] [address] Dr. Miah Veloz Erythrocyte distribution wid th (RBC) [Ratio] 13.2 % Normal 11.0-15.0 [facility] Comment on above: Performed By: #### C BC #### [facility] [address] [place] [address] Dr. Miah Veloz Hematocrit (Bld) [Volume fraction] 36.9 % Critically low 42.0-54.0 [facility] Comment on above: Performed By: #### C BC #### [facility] [address] [place] [address] Dr. Miah Veloz Hemoglobin (Bld) [Mass/Vol] 12.4 g/dL Critically low 14.0 -18.0 [facility] Comment on above: Performed By: #### C BC #### [facility] [address] [place] [address] Dr. Miah Veloz IG # 0.03 10e3/ul Normal 0.00-0.03 [facility] Comment on above: Performed By: #### C BC #### [facility] [address] [place] [address] Dr. Miah Veloz IG % 0.4 % Normal 0.0-0.5 [facility] Comment on above: Performed By: #### C BC #### [facility] [address] [address] [address] Miah Veloz LYMPH # 1.8 103/ul Normal 1.2-3.8 [facility] [place] Comment on above: Performed By: #### C BC #### [facility] [address] [place] [address] Dr. Miah Veloz Lymphocytes/100 WBC (Bld) 23.0 % Normal 20.5-60.0 [facility] Comment on above: Performed By: #### C BC #### [facility] [address] [place] [address] Dr. Miah Veloz MANUAL DIFF REQ NO Normal [facility] Comment on above: Performed By: #### C BC #### [facility] [address] [place] [address] Dr. Miah Veloz MCH (RBC) [Entitic mass] 32.3 pg Normal 25.9-34.0 [facility] Comment on above: Performed By: #### C BC #### [facility] [address] [place] [address] Dr. Miah Veloz MCHC (RBC) [Mass/Vol] 33.6 g/dL Normal 29.9-35.2 [facility] Comment on above: Performed By: #### C BC #### [facility] [address] [place] [address] Dr. Miah Veloz MCV (RBC) [Entitic vol] 96.1 fL Critically high 80.0-94 .0 [facility] Comment on above: Performed By: #### C BC #### [facility] [address] [place] [address] Dr. Miah Veloz MONO # 0.8 103/ul Normal 0.3-0.8 [facility] Comment on above: Performed By: #### C BC #### [facility] [address] [place] [address] Dr. Miah Veloz Monocytes/100 WBC (Bld) 10.2 % Normal 1.7-12.0 [facility] Comment on above: Performed By: #### C BC #### [facility] [address] [address] [address] Miah Veloz NEUT # 4.8 103/ul Normal 1.4-6.5 [facility] Comment on above: Performed By: #### C BC #### [facility] [address] [address] [address] Miah Veloz Neutrophils/100 WBC (Bld) 62.8 % Normal 43.0-75.0 [facility] Comment on above: Performed By: #### C BC #### [facility] [address] [address] [address] Miah Veloz Platelet mean volume (Bld) [ Entitic vol] 10.2 fL Normal 9.5-13.5 [facility] Comment on above: Performed By: #### C BC #### [facility] [address] [address] [address] Miah Veloz PLT 224 103/ul Normal 150-450 [facility] Comment on above: Performed By: #### C BC #### [facility] [address] [address] [address] Miah Veloz RBC 3.84 106/ul Critically low 4.70-6.10 [facility] Comment on above: Performed By: #### C BC #### [facility] [address] [address] [address] Miah Veloz WBC 7.7 103/ul Normal 4.0-11.0 [facility] Comment on above: Performed By: #### C BC #### [facility] [address] [address] [address] Miah Veloz PROF CHEM 8 (BAS METB)on Anion gap [Moles/Vol] 14.4 mmol/L Normal [facility] Comment on above: Performed By: #### B ENDBAND SIZER, CMP, HSTROPN #### [facility] [address] [address] [address] Miah Veloz Calcium [Mass/Vol] 8.3 mg/dL Critically low 8.5-10.1 [facility] Comment on above: Performed By: #### B ENDBAND SIZER, CMP, HSTROPN #### [facility] [address] [address] [address] Miah Veloz Chloride [Moles/Vol] 106 mmol/L Normal 98-107 [facility] Comment on above: Performed By: #### B ENDBAND SIZER, CMP, HSTROPN #### [facility] [address] [address] [address] Miah Veloz CO2 [Moles/Vol] 27.0 mmol/L Normal 21.0-32.0 [facility] Comment on above: Performed By: #### B ENDBAND SIZER, CMP, HSTROPN #### [facility] [address] [place] [address] Dr. Miah Veloz Creatinine [Mass/Vol] 1.12 mg/dL Normal 0.70-1.30 [facility] Comment on above: Performed By: #### B ENDBAND SIZER, CMP, HSTROPN #### [facility] [address] [place] [address] Dr. Miah Veloz EGFR-AF IRISH >60 Normal >=60 [facility] Comment on above: Performed By: #### B ENDBAND SIZER, CMP, HSTROPN #### [facility] [address] [place] [address] Dr. Miah Veloz EGFR-NON AF IRISH >60 Normal >=60 [facility] Comment on above: Performed By: #### B ENDBAND SIZER, CMP, HSTROPN #### [facility] [address] [place] [address] Dr. Miah Veloz Glucose [Mass/Vol] 103 mg/dL Normal 74-106 [facility] Comment on above: Performed By: #### B ENDBAND SIZER, CMP, HSTROPN #### [facility] [address] [address] [address] Miah Veloz Potassium [Moles/Vol] 3.4 mmol/L Critically low 3.5-5.1 [facility] Comment on above: Performed By: #### B ENDBAND SIZER, CMP, HSTROPN #### [facility] [address] [place] [address] Dr. Miah Veloz Sodium [Moles/Vol] 144 mmol/L Normal 136-145 [facility] Comment on above: Performed By: #### B ENDBAND SIZER, CMP, HSTROPN #### [facility] [address] [place] [address] Dr. Miah Veloz Urea nitrogen [Mass/Vol] 21.0 mg/dL Critically high 7.0-18 .0 [facility] Comment on above: Performed By: #### B ENDBAND SIZER, CMP, HSTROPN #### [facility] [address] [place] [address] Dr. Miah Veloz Urea nitrogen/Creatinine [Mass ratio] 18.8 mg/mg Normal [facility] Comment on above: Performed By: #### B ENDBAND SIZER, CMP, HSTROPN #### [facility] [address] [place] [address] Dr. Miah Veloz CBC AUTO DIFFon 04-27-2022 BASO # 0.0 103/ul Normal 0.0-0.1 [facility] Comment on above: Performed By: #### B ENDBAND SIZER, CMP, HSTROPN #### [facility] [address] [place] [address] Dr. Miah Veloz Basophils/100 WBC (Bld) 0.4 % Normal 0.2-2.0 [facility] Comment on above: Performed By: #### B ENDBAND SIZER, CMP, HSTROPN #### [facility] [address] [place] [address] Dr. Miah Veloz EO # 0.2 103/ul Normal 0.0-0.7 [facility] Comment on above: Performed By: #### B ENDBAND SIZER, CMP, HSTROPN #### [facility] [address] [place] [address] Dr. Miah Veloz Eosinophils/100 WBC (Bld) 3.2 % Normal 0.9-7.0 [facility] Comment on above: Performed By: #### B ENDBAND SIZER, CMP, HSTROPN #### [facility] [address] [place] [address] Dr. Miah Veloz Erythrocyte distribution wid th (RBC) [Ratio] 13.6 % Normal 11.0-15.0 [facility] Comment on above: Performed By: #### B ENDBAND SIZER, CMP, HSTROPN #### [facility] [address] [place] [address] Dr. Miah Veloz Hematocrit (Bld) [Volume fraction] 36.7 % Critically low 42.0-54.0 [facility] Comment on above: Performed By: #### B ENDBAND SIZER, CMP, HSTROPN #### [facility] [address] [place] [address] Dr. Miah Veloz Hemoglobin (Bld) [Mass/Vol] 12.0 g/dL Critically low 14.0 -18.0 [facility] Comment on above: Performed By: #### B ENDBAND SIZER, CMP, HSTROPN #### [facility] [address] [place] [address] Dr. Miah Veloz IG # 0.02 10e3/ul Normal 0.00-0.03 [facility] Comment on above: Performed By: #### B ENDBAND SIZER, CMP, HSTROPN #### [facility] [address] [place] [address] Dr. Miah Veloz IG % 0.3 % Normal 0.0-0.5 [facility] Comment on above: Performed By: #### B ENDBAND SIZER, CMP, HSTROPN #### [facility] [address] [place] [address] Dr. Miah Veloz LYMPH # 1.6 103/ul Normal 1.2-3.8 [facility] Comment on above: Performed By: #### B ENDBAND SIZER, CMP, HSTROPN #### [facility] [address] [place] [address] Dr. Miah Veloz Lymphocytes/100 WBC (Bld) 22.2 % Normal 20.5-60.0 [facility] Comment on above: Performed By: #### B ENDBAND SIZER, CMP, HSTROPN #### [facility] [address] [place], [place] [id number] Dr. Miah Veloz MANUAL DIFF REQ NO Normal [facility] Comment on above: Performed By: #### B ENDBAND SIZER, CMP, HSTROPN #### [facility] [address] [place] [address] Dr. Miah Veloz MCH (RBC) [Entitic mass] 32.3 pg Normal 25.9-34.0 [facility] Comment on above: Performed By: #### B ENDBAND SIZER, CMP, HSTROPN #### [facility] [address] [place] [address] Dr. Miah Veloz MCHC (RBC) [Mass/Vol] 32.7 g/dL Normal 29.9-35.2 [facility] Comment on above: Performed By: #### B ENDBAND SIZER, CMP, HSTROPN #### [facility] [address] [place] [address] Dr. Miah Veloz MCV (RBC) [Entitic vol] 98.7 fL Critically high 80.0-94 .0 [facility] Comment on above: Performed By: #### B ENDBAND SIZER, CMP, HSTROPN #### [facility] [address] [place] [address] Dr. Miah Veloz MONO # 0.7 103/ul Normal 0.3-0.8 [facility] Comment on above: Performed By: #### B ENDBAND SIZER, CMP, HSTROPN #### [facility] [address] [place] [address] Dr. Miah Veloz Monocytes/100 WBC (Bld) 9.1 % Normal 1.7-12.0 [facility] Comment on above: Performed By: #### B ENDBAND SIZER, CMP, HSTROPN #### [facility] [address] [place] [address] Dr. Miah Veloz NEUT # 4.6 103/ul Normal 1.4-6.5 [facility] Comment on above: Performed By: #### B ENDBAND SIZER, CMP, HSTROPN #### [facility] [address] [place] [address] Dr. Miah Veloz Neutrophils/100 WBC (Bld) 64.8 % Normal 43.0-75.0 [facility] Comment on above: Performed By: #### B ENDBAND SIZER, CMP, HSTROPN #### [facility] [address] [place] [address] Dr. Miah Veloz Platelet mean volume (Bld) [ Entitic vol] 10.2 fL Normal 9.5-13.5 [facility] Comment on above: Performed By: #### B ENDBAND SIZER, CMP, HSTROPN #### [facility] [address] [place] [address] Dr. Miah Veloz PLT 200 103/ul Normal 150-450 [facility] Comment on above: Performed By: #### B ENDBAND SIZER, CMP, HSTROPN #### [facility] [address] [place] [address] Dr. Miah Veloz RBC 3.72 106/ul Critically low 4.70-6.10 [facility] Comment on above: Performed By: #### B ENDBAND SIZER, CMP, HSTROPN #### [facility] [address] [place] [address] Dr. Miah Veloz WBC 7.1 103/ul Normal 4.0-11.0 [facility] Comment on above: Performed By: #### B ENDBAND SIZER, CMP, HSTROPN #### [facility] [address] [place] [address] Dr. Miah Veloz ECHOCARDIO M/2D COMPLETEon 0 04-27-2022 ECHOCARDIO M/2D COMPLETE Patient: GARRY STREETER Exam Date: 04/27/2022 : 1955 Gender:M Ordering : DR ANDREI ORONA . Admission #: [id number] Family : Order #: [id number] CLICK HERE TO VIEW EXAM ECHOCARDIOGRAM REPORT [...] Area(A4C): 22.40 cm2 Left Atrium Systolic Volume(A2C): 13082 mm3 Left Atrium Systolic Volume(A4C): 51053 mm3 Mitral Valve Mitral Valve E-Wave Peak [...] Palacios M.D. on 04/27/2022 at 16:58 Normal [facility] PROF CHEM 8 (BAS METB)on Anion gap [Moles/Vol] 13.3 mmol/L Normal [facility] Comment on above: Performed By: #### B MP #### [facility] [address] [place] [address] Dr. Miah Veloz Calcium [Mass/Vol] 8.2 mg/dL Critically low 8.5-10.1 [facility] Comment on above: Performed By: #### B MP #### [facility] [address] [place] [address] Dr. Miah Veloz Chloride [Moles/Vol] 107 mmol/L Normal 98-107 [facility] Comment on above: Performed By: #### B MP #### [facility] [address] [place] [address] Dr. Miah Veloz CO2 [Moles/Vol] 27.5 mmol/L Normal 21.0-32.0 [facility] Comment on above: Performed By: #### B MP #### [facility] [address] [place] [address] Dr. Miah Veloz Creatinine [Mass/Vol] 0.97 mg/dL Normal 0.70-1.30 [facility] Comment on above: Performed By: #### B MP #### [facility] [address] [place] [address] Dr. Miah Veloz EGFR-AF IRISH >60 Normal >=60 [facility] Comment on above: Performed By: #### B MP #### [facility] [address] [place] [address] Dr. Miah Veloz EGFR-NON AF IRISH >60 Normal >=60 [facility] Comment on above: Performed By: #### B MP #### [facility] [address] [place] [address] Dr. Miah Veloz Glucose [Mass/Vol] 102 mg/dL Normal 74-106 [facility] Comment on above: Performed By: #### B MP #### [facility] [address] [address] [address] Miah Veloz Potassium [Moles/Vol] 3.8 mmol/L Normal 3.5-5.1 [facility] Comment on above: Performed By: #### B MP #### [facility] [address] [place] [address] Dr. Miah Veloz Sodium [Moles/Vol] 144 mmol/L Normal 136-145 [facility] Comment on above: Performed By: #### B MP #### [facility] [address] [place] [address] Dr. Miah Veloz Urea nitrogen [Mass/Vol] 17.0 mg/dL Normal 7.0-18.0 [facility] Comment on above: Performed By: #### B MP #### [facility] [address] [place] [address] Dr. Miah Veloz Urea nitrogen/Creatinine [Mass ratio] 17.5 mg/mg Normal [facility] Comment on above: Performed By: #### B MP #### [facility] [address] [place] [address] Dr. Miah Veloz BNPon 04-26-2022 Natriuretic peptide B (Bld) [Mass/Vol] 1105.0 pg/mL Critically high <=900.0 [facility] Comment on above: Performed By: #### B ENDBAND SIZER, CMP, HSTROPN #### [facility] [address] [place] [address] Dr. Miah Veloz CBC AUTO DIFFon 04-26-2022 BASO # 0.0 103/ul Normal 0.0-0.1 [facility] Comment on above: Performed By: #### C BC #### [facility] [address] [place] [address] Dr. Miah Veloz Basophils/100 WBC (Bld) 0.6 % Normal 0.2-2.0 [facility] Comment on above: Performed By: #### C BC #### [facility] [address] [place] [address] Dr. Miah Veloz EO # 0.2 103/ul Normal 0.0-0.7 [facility] Comment on above: Performed By: #### C BC #### [facility] [address] [place] [address] Dr. Miah Veloz Eosinophils/100 WBC (Bld) 2.1 % Normal 0.9-7.0 [facility] Comment on above: Performed By: #### C BC #### [facility] [address] [place] [address] Dr. Miah Veloz Erythrocyte distribution wid th (RBC) [Ratio] 13.7 % Normal 11.0-15.0 [facility] Comment on above: Performed By: #### C BC #### [facility] [address] [place] [address] Dr. Miah Veloz Hematocrit (Bld) [Volume fraction] 39.3 % Critically low 42.0-54.0 [facility] Comment on above: Performed By: #### C BC #### [facility] [address] [place] [address] Dr. Miah Veloz Hemoglobin (Bld) [Mass/Vol] 13.0 g/dL Critically low 14.0 -18.0 [facility] Comment on above: Performed By: #### C BC #### [facility] [address] [place] [address] Dr. Miah eVloz IG # 0.02 10e3/ul Normal 0.00-0.03 [facility] Comment on above: Performed By: #### C BC #### [facility] [address] [place] [address] Dr. Miah Veloz IG % 0.3 % Normal 0.0-0.5 [facility] Comment on above: Performed By: #### C BC #### [facility] [address] [address] [address] Miah Veloz LYMPH # 1.1 103/ul Critically low 1.2-3.8 [facility] Comment on above: Performed By: #### C BC #### [facility] [address] [address] [address] Miah Veloz Lymphocytes/100 WBC (Bld) 16.1 % Critically low 20.5-6 0.0 [facility] Comment on above: Performed By: #### C BC #### [facility] [address] [address] [address] Miah Veloz MANUAL DIFF REQ NO Normal [facility] Comment on above: Performed By: #### C BC #### [facility] [address] [place] [address] Dr. Miah Veloz MCH (RBC) [Entitic mass] 32.7 pg Normal 25.9-34.0 [facility] Comment on above: Performed By: #### C BC #### [facility] [address] [address] [address] Miah Veloz MCHC (RBC) [Mass/Vol] 33.1 g/dL Normal 29.9-35.2 [facility] Comment on above: Performed By: #### C BC #### [facility] [address] [place] [address] Dr. Miah Veloz MCV (RBC) [Entitic vol] 98.7 fL Critically high 80.0-94 .0 [facility] Comment on above: Performed By: #### C BC #### [facility] [address] [address] [address] Miah Veloz MONO # 0.5 103/ul Normal 0.3-0.8 [facility] Comment on above: Performed By: #### C BC #### [facility] [address] [address] [address] Miah Veloz Monocytes/100 WBC (Bld) 7.6 % Normal 1.7-12.0 [facility] Comment on above: Performed By: #### C BC #### [facility] [address] [place] [address] Dr. Miah Veloz NEUT # 5.2 103/ul Normal 1.4-6.5 [facility] Comment on above: Performed By: #### C BC #### [facility] [address] [address] [address] Miah Veloz Neutrophils/100 WBC (Bld) 73.3 % Normal 43.0-75.0 [facility] Comment on above: Performed By: #### C BC #### [facility] [address] [address] [address] Miah Veloz Platelet mean volume (Bld) [ Entitic vol] 10.7 fL Normal 9.5-13.5 [facility] Comment on above: Performed By: #### C BC #### [facility] [address] [place] [address] Dr. Miah Veloz PLT 200 103/ul Normal 150-450 [facility] Comment on above: Performed By: #### C BC #### [facility] [address] [place] [address] Dr. Miah Veloz RBC 3.98 106/ul Critically low 4.70-6.10 [facility] Comment on above: Performed By: #### C BC #### [facility] [address] [place] [address] Dr. Miah Veloz WBC 7.1 103/ul Normal 4.0-11.0 [facility] Comment on above: Performed By: #### C BC #### [facility] [address] [place] [address] Dr. Miah Veloz CTA CHEST WO W [...] NICK CABRALES Date: 2022-04-26 10:50 Normal [facility] Covid-19 PCR (CVDTB)on SARS-CoV-2 (COVID-19) RNA GÓMEZ+probe Ql (Unsp spec) Not detected Normal NOT DETECTED [facility] Comment on above: Result Comment: When [...] for this test is supported by the [facility] [employer]'s declaration that [...] longer be used). Performed By: #### B ENDBAND SIZER, CMP, HSTROPN #### [facility] [address] [place] [address] Dr. Miah Veloz PROF 14(COMP METB)on 022 Albumin [Mass/Vol] 3.1 g/dL Critically low 3.4-5.0 [facility] Comment on above: Performed By: #### B ENDBAND SIZER, CMP, HSTROPN #### [facility] [address] [place] [address] Dr. Miah Veloz Albumin/Globulin [Mass ratio] 0.9 {ratio} Normal [facility] Comment on above: Performed By: #### B ENDBAND SIZER, CMP, HSTROPN #### [facility] [address] [place] [address] Dr. Miah Veloz ALP [Catalytic activity/Vol] 54 U/L Normal 46-116 [facility] Comment on above: Performed By: #### B ENDBAND SIZER, CMP, HSTROPN #### [facility] [address] [place] [address] Dr. Miah Veloz ALT [Catalytic activity/Vol] 63 U/L Normal 16-63 [facility] Comment on above: Performed By: #### B ENDBAND SIZER, CMP, HSTROPN #### [facility] [address] [place] [address] Dr. Miah Veloz Anion gap [Moles/Vol] 13.9 mmol/L Normal [facility] Comment on above: Performed By: #### B ENDBAND SIZER, CMP, HSTROPN #### [facility] [address] [place] [address] Dr. Miah Veloz AST [Catalytic activity/Vol] 32 U/L Normal 15-37 [facility] Comment on above: Performed By: #### B ENDBAND SIZER, CMP, HSTROPN #### [facility] [address] [place] [address] Dr. Miah Veloz Calcium [Mass/Vol] 8.7 mg/dL Normal 8.5-10.1 [facility] Comment on above: Performed By: #### B ENDBAND SIZER, CMP, HSTROPN #### [facility] [address] [place] [address] Dr. Miah Veloz Chloride [Moles/Vol] 108 mmol/L Critically high 98-107 [facility] Comment on above: Performed By: #### B ENDBAND SIZER, CMP, HSTROPN #### [facility] [address] [place] [address] Dr. Miah Veloz CO2 [Moles/Vol] 24.3 mmol/L Normal 21.0-32.0 [facility] Comment on above: Performed By: #### B ENDBAND SIZER, CMP, HSTROPN #### [facility] [address] [place] [address] Dr. Miah Veloz Creatinine [Mass/Vol] 0.90 mg/dL Normal 0.70-1.30 [facility] Comment on above: Performed By: #### B ENDBAND SIZER, CMP, HSTROPN #### [facility] [address] [place] [address] Dr. Miah Veloz EGFR-AF IRISH >60 Normal >=60 [facility] Comment on above: Performed By: #### B ENDBAND SIZER, CMP, HSTROPN #### [facility] [address] [place] [address] Dr. Miah Veloz EGFR-NON AF IRISH >60 Normal >=60 [facility] Comment on above: Performed By: #### B ENDBAND SIZER, CMP, HSTROPN #### [facility] [address] [place] [address] Dr. Miah Veloz Globulin (S) [Mass/Vol] 3.6 g/dL Normal [facility] Comment on above: Performed By: #### B ENDBAND SIZER, CMP, HSTROPN #### [facility] [address] [place] [address] Dr. Miah Veloz Glucose [Mass/Vol] 146 mg/dL Critically high 74-106 [facility] Comment on above: Performed By: #### B ENDBAND SIZER, CMP, HSTROPN #### [facility] [address] [place] [address] Dr. Miah Veloz Potassium [Moles/Vol] 4.2 mmol/L Normal 3.5-5.1 [facility] Comment on above: Performed By: #### B ENDBAND SIZER, CMP, HSTROPN #### [facility] [address] [place] [address] Dr. Miah Veloz Protein [Mass/Vol] 6.7 g/dL Normal 6.4-8.2 [facility] Comment on above: Performed By: #### B ENDBAND SIZER, CMP, HSTROPN #### [facility] [address] [place] [address] Dr. Miah Veloz Sodium [Moles/Vol] 142 mmol/L Normal 136-145 [facility] Comment on above: Performed By: #### B ENDBAND SIZER, CMP, HSTROPN #### [facility] [address] [place] [address] Dr. Miah Veloz Urea nitrogen [Mass/Vol] 19.0 mg/dL Critically high 7.0-18 .0 [facility] Comment on above: Performed By: #### B ENDBAND SIZER, CMP, HSTROPN #### [facility] [address] [place] [address] Dr. Miah Veloz Urea nitrogen/Creatinine [Mass ratio] 21.1 mg/mg Normal [facility] Comment on above: Performed By: #### B ENDBAND SIZER, CMP, HSTROPN #### [facility] [address] [place] [address] Dr. Miah Veloz PROTIMEon 04-26-2022 INR Coag (PPP) [Relative time] 1.20 {INR} Normal [facility] Comment on above: Performed By: #### B ENDBAND SIZER, CMP, HSTROPN #### [facility] [address] [place] [address] Dr. Miah Veloz INR GUIDELINES SEE BELOW Normal [facility] Comment on above: Result Comment: JENNIFER RED INR: 2.0 - 3.0 CONDITIONS NOT LISTED BELOW 2.5 - 3.5 FOR PROSTHETIC HEART VALVE REPLACEMENT 2.5 - 3.5 RECURRENT THROMBOSIS Performed By: #### B ENDBAND SIZER, CMP, HSTROPN #### [facility] [address] [place] [address] Dr. Miah Veloz PT Coag (PPP) [Time] 12.8 s Critically high 9.0-11.6 [facility] Comment on above: Performed By: #### B ENDBAND SIZER, CMP, HSTROPN #### [facility] [address] [place], [place] [address] Dr. Miah Veloz PTTon 04-26-2022 aPTT Coag (Bld) [Time] 28.5 s Normal 22.3-36.2 [facility] Comment on above: Performed By: #### B ENDBAND SIZER, CMP, HSTROPN #### [facility] [address] [place], [place] [address] Dr. Miah Veloz TROPONIN, HIGH SENSITIVITYon 04-26-2022 HSTROP 24.7 pg/mL Normal 4.0-76.1 [facility] Comment on above: Result Comment: CUT- OFF POINTS HAVE BEEN ESTABLISHED BASED ON THE FOURTH UNIVERSAL DEFINITIONS OF MYOCARDIAL INFARCTION. THE UPPER REFERENCE LIMIT (URL) OF TROPONIN, DEFINED THE 99TH PERCENTILE OF cTnI DISTRIBUTION IN A REFERENCE POPULATION, HAS BEEN CONFIRMED THE DECISION THRESHOLD FOR RI DIAGNOSIS. Performed By: #### B ENDBAND SIZER, CMP, HSTROPN #### [facility] [address] [place] [address] [address] Miah Veloz Encounters Encounter Date Encounter Type Care Provider Facility Start: 10-22-2023 End: 10-22-2023 ambulatory MEET [facility] Start: 08-30-2023 End: 08-30-2023 ambulatory MARTIN SPENCER [facility] Start: 03-22-2023 End: 03-22-2023 ambulatory TACHO [facility] [place] Start: 03-01-2023 End: 03-02-2023 ambulatory SARAH RAMIREZ Facility:[facility] Start: 02-03-2023 End: 02-03-2023 ambulatory SARAH RAMIREZ [facility] Start: 01-15-2023 End: 01-16-2023 ambulatory LUZMA PHAM Facility:[facility] Start: 10-31-2022 Encounter for preprocedural laboratory examination DR TAVIA [place] . [facility] Start: 10-28-2022 End: 10-29-2022 ambulatory TAVIA [place] Facility:[facility] Start: 10-28-2022 End: 10-28-[address] [place]IA [place] . Facility:[facility] Start: 10-24-2022 End: 10-25-[address] [place]AVIA [place] . Facility:[facility] Start: 10-24-2022 End: 10-25-2022 Encounter for preprocedural laboratory examination DR TAVIA [place] . Facility:[facility] Start: 08-12-2022 Encounter for other preprocedural examination TACHO HOLLAND [facility] Start: 08-10-2022 End: 08-11-2022 ambulatory LEANDROBARPatience PRADEEPSYLVIABARBARA Facility:[facility] Start: 08-10-2022 End: 08-11-2022 Encounter for other preprocedural examination TACHO HOLLAND Facility:[facility] Start: 08-05-2022 End: 08-06-2022 ambulatory TACHO HOLLAND Facility:[facility] Start: 05-14-2022 End: 05-15-[address] DOCTOR FREED Facility:[facility] Start: 04-26-2022 End: 04-28-2022 Evaluation and management of inpatient [facility] Facility:[facility] Procedures Date Procedure Procedure Detail Performing Clinician Start: 03-22-2023 Follow-up visit Follow-up TACHO HOLLAND Payers Date Payer Category Payer Medicare [id number] 1961 Unknown [id number] 1955 Unknown [id number] .16.84 [id number] 1955 Unknown [id number] .. [id number] 1955 Unknown [id number] ..[id number] 1955 Unknown [id number] ..[id number] 1953 Unknown [id number] ..[id number] 1953 Unknown [id number] ..[id number] 1953 Unknown [id number] 2..84 [id number] 1953 Unknown [id number] 2.16.84 [id number] 1955 Unknown [id number] 2.16.84 [id number] Clinical Notes 04-26-2022 to 10-22-2023 Note Date & Type Note Facility 10-22-2023 Note Patient here for [facility] for afib w/ RVR. He was [...] All other systems reviewed and are negative. [facility] 08-30-2023 Note [facility]TP CARDIOLOGY PROGR ESS NOTE HPI: Garry Streeter is a 68 y.o. male past medical history of heart failure improved ejection fraction, paroxysmal atrial fibrillation, hypertension, and valvular heart disease seen in follow-up. Update: 03/22/2023 Pt is here for med check F/U for [facility] pt states he stopped taking some [...] Conclusions: Biphasic cardio (more content not included)... [facility] 08-30-2023 Note Patient here for 6 m [...] All other systems reviewed and are negative. [facility] 03-22-2023 Note UTP CARDIOLOGY PROGR ESS NOTE [...] normal. Mild aor (more content not included)... [facility] 02-03-2023 Note No edema today [facility] 02-03-2023 Note Stable [facility] 02-03-2023 Note EKG today-Sinus manny ycardia with PACs/PVCs- And artifact, Otherwise normal EKG He is adamant he is still taking Eliquis anticoagulation, Pharmacy denies that he is filled Eliquis or metoprolol in the last 6 months. Discussed with patient risk for stroke with paroxysmal atrial fib- He states he has cardia Monitor at home and he has not had any A-fib [facility] 02-03-2023 Note [facility] I-II Currently appears euvolemic, [...] Staff To obtain recent labs from PCP [facility] 02-03-2023 Note UTP CARDIOLOGY PROGR ESS NOTE HPI: Garry Streeter is a 67 y.o. male here for Med Refill, Atrial Fibrillation, and Congestive Heart Failure Known h/o Chronic systolic heart failure, Paroxysmal atrial fib, edema, and noncompliance to med regimen. Pt is here for med check F/U for [facility] pt states he stopped taking some [...] this time. Staff called pharmacy- [facility] and patient states this is his only [...] Right ventricular syst (more content not included)... [facility] 02-03-2023 Note Pt is here for med c heck F/U [facility] pt states he stop take some of his meds due to having Diarrhea more then 3 times a day pt also stated he was having problems walking due to gout. Review of Systems Gastrointestinal: Positive for diarrhea. All other systems reviewed and are negative. [facility] 04-26-2022 Note PROCEDURE: XR KNEE L T 4V or > COMPARISON: None. HISTORY: Swelling FINDINGS: BONES:No fracture, acute abnormality, or significant arthropathy. SOFT TISSUES:Negative. No visible soft tissue swelling. EFFUSION:Moderate suprapatellar joint effusion OTHER: Negative. IMPRESSION: Moderate joint effusion Electronically authenticated by: NICK CABRALES Date: 2022-04-26 10:09 [facility] Summary Purpose Family History No Family History Records FoundNo Family History Records FoundNo Family History Records Found Advance Directives No Advanced Directives Records FoundNo Advanced Directives Records FoundNo Advanced Directives Records Found Additional Source Comments (unrecognized sect ion and content) No Status Records FoundNo Status Records FoundNo Status Records Found INFORMATION SOURCE (unrecogn ized section and content) DATE CREATED AUTHOR 10/30/2022 [facility] DATE CREATED AUTHOR AUTHOR'S ORGANIZ ATION 03/17/2023 [facility] DATE CREATED AUTHOR AUTHOR'S ORGANIZ ATION 11/07/2023 [facility] FOR RECORDS PERTAINING TO PATIENTS WHO [...] BE BASED ON THE PRIMARY CLINICAL RECORDS. [employer] [facility]. provides no warranty or guarantee of the accuracy or completeness of information in this document.
--- OUTSIDE RECORDS SUMMARY | 2023-11-09 21:11 | XMS_ITS | CCD ---
Author Name Unknown Address [address] [place] [address] Organization [facility] Care Team Providers Care Busgirl Name Role Phone TAVIA [place] Attending Unavailable [...] Acetaminophen; Translations: [ACETAMINOPHEN] Drug Allergy 09-15-2022 [facility] Repository Problems Active Problems Problem Classification Problem [...] source) FDC (current) use of anticoagulants; Translations: [SENIOR CARE CURRNT USE ANTICOAGULANTS] Onset: 11-01-2022 Episodic Other [...] on it so should be fine Normal [facility] Telephoneon 11-04-2023 Telephone [id number] Ben Streeter W 1955 M Date Provider Department Center 11/04/2023 MONICA BARRIENTOS CARD [facility] Family History Problem Relation Age of Onset Colon cancer Brother Family Status - Relation Status Age at Brother Normal [facility] Office Visiton 08-30-2023 Follow-up visit [id number] Ben Streeter rt W 1955 M Date Provider Department Center 08/30/2023 [id number] SPENCER [facility] Esha Champion Family History Problem Relation Age of Onset Colon cancer Brother Family Status - Relation Status Age at Brother Level of Service:21446 AL OFFICE/OUTPATIENT ESTABLISHED MOD MDM 30-39 MIN Normal [facility] Office Visiton 03-22-2023 Follow-up visit [id number] Ben Streeter rt W 1955 M Date Provider Department Center 03/22/2023 [id number] LEANDROSHRADDHA [facility] Family History Problem Relation Age of Onset Colon cancer Brother Family Status - Relation Status Age at Brother Level of Service:43673 AL OFFICE/OUTPATIENT ESTABLISHED MOD MDM 30-39 MIN Reason for Visit and Comments: Follow-up [878325] - f/u echo Normal [facility] ECHOCARDIO M/2D COMPLETEon 0 03-01-2023 ECHOCARDIO M/2D COMPLETE Patient: GARRY STREETER Exam Date: 03/01/2023 : 1955 Gender:M Ordering : SARAH RAMIREZ Admission #: [id number] Family : WARREN JOYNER DOPE SPRAYER-C Order #: [id number] CLICK HERE TO VIEW EXAM ECHOCARDIOGRAM REPORT [...] Baumann M.D. on 03/01/2023 at 09:21 Normal [facility] Office Visiton 02-03-2023 Follow-up visit [id number] Ben Streeter rt W 1955 M Date Provider Department Center 02/03/2023 SARAH KHAN [facility] Family History Problem Relation Age of Onset Colon cancer Brother Family Status - Relation Status Age at Brother Level of Service:75037 AL OFFICE/OUTPATIENT ESTABLISHED MOD MDM 30-39 MIN Reason for Visit and Comments: Med Refill [168312] Atrial Fibrillation [80] Congestive Heart Failure [127] Normal [facility] BNPon 01-15-2023 Natriuretic peptide B (Bld) [Mass/Vol] 20.0 pg/mL Normal <=900.0 [facility] pitil Comment on above: Performed By: #### B DOPE SPRAYER, MG, CMP #### [facility] [address] [place] [address] Dr. Miah Veloz HEMOGRAM AND PLATELon 2022 Hematocrit (Bld) [Volume fraction] 41.3 % Critically low 42.0-54.0 [facility] pitil Comment on above: Performed By: #### B DOPE SPRAYER, CMP, HSTROPN #### [facility] [address] [place] [address] Dr. Miah Veloz Hemoglobin (Bld) [Mass/Vol] 14.2 g/dL Normal 14.0-18. 0 [facility] Comment on above: Performed By: #### B DOPE SPRAYER, CMP, HSTROPN #### [facility] [address] [address] [address] Miah Veloz MCH (RBC) [Entitic mass] 31.5 pg Normal 25.9-34.0 [facility] Comment on above: Performed By: #### B DOPE SPRAYER, CMP, HSTROPN #### [facility] [address] [place] [address] Dr. Miah Veloz MCHC (RBC) [Mass/Vol] 34.4 g/dL Normal 29.9-35.2 [facility] Comment on above: Performed By: #### B DOPE SPRAYER, CMP, HSTROPN #### [facility] [address] [place] [address] Dr. Miah Veloz MCV (RBC) [Entitic vol] 91.6 fL Normal 80.0-94.0 [facility] Comment on above: Performed By: #### B DOPE SPRAYER, CMP, HSTROPN #### [facility] [address] [place] [address] Dr. Miah Veloz PLT 173 103/ul Normal 150-450 [facility] Comment on above: Performed By: #### B DOPE SPRAYER, CMP, HSTROPN #### [facility] [address] [place] [address] Dr. Miah Veloz RBC 4.51 106/ul Critically low 4.70-6.10 The [facility] Comment on above: Performed By: #### B DOPE SPRAYER, CMP, HSTROPN #### [facility] [address] [place] [address] Dr. Miah Veloz WBC 5.8 103/ul Normal 4.0-11.0 [facility] Comment on above: Performed By: #### B DOPE SPRAYER, CMP, HSTROPN #### [facility] [address] [place] [address] Dr. Miah Veloz MAGNESIUMon 01-15-2023 Magnesium [Mass/Vol] 1.9 mg/dL Normal 1.8-2.4 [facility] Comment on above: Performed By: #### B DOPE SPRAYER, MG, CMP #### [facility] [address] [place] [address] Dr. Miah Veloz PROF 14(COMP METB)on 023 Albumin [Mass/Vol] 3.8 g/dL Normal 3.4-5.0 [facility] Comment on above: Performed By: #### B DOPE SPRAYER, MG, CMP #### [facility] [address] [place] [address] Dr. Miah Veloz Albumin/Globulin [Mass ratio] 0.9 {ratio} Normal [facility] Comment on above: Performed By: #### B DOPE SPRAYER, MG, CMP #### [facility] [address] [place] [address] Dr. Miah Veloz ALP [Catalytic activity/Vol] 86 U/L Normal 46-116 [facility] Comment on above: Performed By: #### B DOPE SPRAYER, MG, CMP #### [facility] [address] [place] [address] Dr. Miah Veloz ALT [Catalytic activity/Vol] 26 U/L Normal 16-63 [facility] Comment on above: Performed By: #### B DOPE SPRAYER, MG, CMP #### [facility] [address] [place] [address] Dr. Miah Veloz Anion gap [Moles/Vol] 11.3 mmol/L Normal [facility] Comment on above: Performed By: #### B DOPE SPRAYER, MG, CMP #### [facility] [address] [place] [address] Dr. Miah Veloz AST [Catalytic activity/Vol] 18 U/L Normal 15-37 [facility] Comment on above: Performed By: #### B DOPE SPRAYER, MG, CMP #### [facility] [address] [place] [address] Dr. Miah Veloz Bilirubin [Mass/Vol] 0.6 mg/dL Normal 0.2-1.0 [facility] Comment on above: Performed By: #### B DOPE SPRAYER, MG, CMP #### [facility] [address] [place] [address] Dr. Miah Veloz Calcium [Mass/Vol] 9.4 mg/dL Normal 8.5-10.1 [facility] Comment on above: Performed By: #### B DOPE SPRAYER, MG, CMP #### [facility] [address] [place] [address] Dr. Miah Veloz Chloride [Moles/Vol] 105 mmol/L Normal 98-107 [facility] Comment on above: Performed By: #### B DOPE SPRAYER, MG, CMP #### [facility] [address] [place] [address] Dr. Miah Veloz CO2 [Moles/Vol] 30.2 mmol/L Normal 21.0-32.0 [facility] Comment on above: Performed By: #### B DOPE SPRAYER, MG, CMP #### [facility] [address] [place] [address] Dr. Miah Veloz Creatinine [Mass/Vol] 0.88 mg/dL Normal 0.70-1.30 [facility] Comment on above: Performed By: #### B DOPE SPRAYER, MG, CMP #### [facility] [address] [place] [address] Dr. Miah Veloz EGFR-AF TRINIDADIAN >60 Normal >=60 [facility] Comment on above: Performed By: #### B DOPE SPRAYER, MG, CMP #### [facility] [address] [place] [address] Dr. Miah Veloz EGFR-NON AF TRINIDADIAN >60 Normal >=60 [facility] Comment on above: Performed By: #### B DOPE SPRAYER, MG, CMP #### [facility] [address] [place] [address] Dr. Miah Veloz Globulin (S) [Mass/Vol] 4.1 g/dL Normal [facility] Comment on above: Performed By: #### B DOPE SPRAYER, MG, CMP #### [facility] [address] [place] [address] Dr. Miah Veloz Glucose [Mass/Vol] 98 mg/dL Normal 74-106 [facility] Comment on above: Performed By: #### B DOPE SPRAYER, MG, CMP #### [facility] [address] [place] [address] Dr. Miah Veloz Potassium [Moles/Vol] 4.5 mmol/L Normal 3.5-5.1 [facility] Comment on above: Performed By: #### B DOPE SPRAYER, MG, CMP #### [facility] [address] [place] [address] Dr. Miah Veloz Protein [Mass/Vol] 7.9 g/dL Normal 6.4-8.2 [facility] Comment on above: Performed By: #### B DOPE SPRAYER, MG, CMP #### [facility] [address] [place] [address] Dr. Miah Veloz Sodium [Moles/Vol] 142 mmol/L Normal 136-145 [facility] Comment on above: Performed By: #### B DOPE SPRAYER, MG, CMP #### [facility] [address] [place] [address] Dr. Miah Veloz Urea nitrogen [Mass/Vol] 15.0 mg/dL Normal 7.0-18.0 [facility] Comment on above: Performed By: #### B DOPE SPRAYER, MG, CMP #### [facility] [address] [place] [address] Dr. Miah Veloz Urea nitrogen/Creatinine [Mass ratio] 17.0 mg/mg Normal [facility] Comment on above: Performed By: #### B DOPE SPRAYER, MG, CMP #### [facility] [address] [place] [address] Dr. Miah Veloz XR CHEST 2 Von [...] LUZMA PHAM Date: 2023-01-15 12:47 Normal [facility] SURGICAL PATH REPORTon 10-29 SURGICAL PATH REPORT [facility] Department of Pathology [address] [place] [phone] Name: GARRY STREETER : 1955 Financial [id number] Number: Gender Male Locatio INDIO REYNOLDS : n: Admit 67 years Attending TAVIA [place] Age: Provider: Ordering TAVIA [place] Provider: Consulti Surgical Pathology Report ng: ACCESSION: COLLECTED DATE/TIME: RECEIVED DATE/TIME: PATHOLOGIST: [id number] 10/28/2022 11:24 EST 10/28/2022 11:24 EST MATT PELAEZ MD Final Diagnosis Report for THE [place], [place] (A) SIGMOID POLYP AT 40 CM: [...] ____ Print 10/29/2022 14:17 EST Number: Date/Time: [facility] Department of Pathology [address] [place] [phone] Name: GARRY STREETER : 1955 Financial [id number] Number: Gender Male Dimas BORJAS REYNOLDS : n: Admit 67 years Attending TAVIA [place] Age: Provider: Ordering TAVIA [place] Provider: Mikei Surgical Pathology Report ng: ACCESSION: COLLECTED DATE/TIME: RECEIVED DATE/TIME: PATHOLOGIST: [id number] 10/28/2022 11:24 EST 10/28/2022 11:24 EST MATT [...] MP/ald 10/28/2022 Tissue pathology report for: [facility], [address] [place] [address]; PATHOLOGY SERVICES PROVIDED BY [employer] (CLIA #[id number]) in cooperation with [facility] at [address] [place] [address] ( CLIA #[id number]) Codes CPT CODE: [id number] ____ Print 10/29/2022 14:17 EST Number: Date/Time: [facility] Comment on above: Performed By: #### 9 [id number] #### [facility] Laboratory Services [address] [place] [address] Paper Tester: Matt Pelaez MD [facility]on SARS-CoV-2 (COVID-19) RNA GÓMEZ+probe Ql (Unsp spec) Not detected Normal NOT DETECTED [facility] Comment on above: Result Comment: This test is not yet approved or cleared by the [place] FDA. When there are no FDA-approved or cleared tests available, and other criteria are met, FDA can make tests available under an emergency access mechanism called an Emergency Use Authorization (EUA). The EUA for this test is supported by the [place] of Health and Human Service's (HHS's) declaration [...] SARS-CoV-2. Performed By: #### C VDTBH #### [facility] [address] [place] [address] Dr. Miah Veloz CBC AUTO DIFFon 08-10-2022 BASO # 0.1 103/ul Normal 0.0-0.[address] [facility] ospital Comment on above: Performed By: #### B DOPE SPRAYER, CMP, HSTROPN #### [facility] [address] [address] [address] Miah Veloz Basophils/100 WBC (Bld) 0.7 % Normal 0.2-2.0 [facility] Comment on above: Performed By: #### B DOPE SPRAYER, CMP, HSTROPN #### [facility] [address] [place] [address] Dr. Miah Veloz EO # 0.4 103/ul Normal 0.0-0.7 [facility] Comment on above: Performed By: #### B DOPE SPRAYER, CMP, HSTROPN #### [facility] [address] [place] [address] Dr. Miah Veloz Eosinophils/100 WBC (Bld) 4.1 % Normal 0.9-7.0 [facility] Comment on above: Performed By: #### B DOPE SPRAYER, CMP, HSTROPN #### [facility] [address] [place] [address] Dr. Miah Veloz Erythrocyte distribution wid th (RBC) [Ratio] 16.0 % Critically high 11.0-15.0 [facility] pital Comment on above: Performed By: #### B DOPE SPRAYER, CMP, HSTROPN #### [facility] [address] [place] [address] Dr. Miah Veloz Hematocrit (Bld) [Volume fraction] 41.2 % Critically low 42.0-54.0 [facility] pital Comment on above: Performed By: #### B DOPE SPRAYER, CMP, HSTROPN #### [facility] [address] [place] [address] Dr. Miah Veloz Hemoglobin (Bld) [Mass/Vol] 14.1 g/dL Normal 14.0-18. 0 [facility] Comment on above: Performed By: #### B DOPE SPRAYER, CMP, HSTROPN #### [facility] [address] [place] [address] Dr. Miah Veloz IG # 0.03 10e3/ul Normal 0.00-0.03 [facility] Comment on above: Performed By: #### B DOPE SPRAYER, CMP, HSTROPN #### [facility] [address] [place] [address] Dr. Miah Veloz IG % 0.3 % Normal 0.0-0.5 [facility] ospital Comment on above: Performed By: #### B DOPE SPRAYER, CMP, HSTROPN #### [facility] [address] [place] [address] Dr. Miah Veloz LYMPH # 2.8 103/ul Normal 1.2-3.8 [facility] Comment on above: Performed By: #### B DOPE SPRAYER, CMP, HSTROPN #### [facility] [address] [place] [address] Dr. Miah Veloz Lymphocytes/100 WBC (Bld) 28.5 % Normal 20.5-60.0 [facility] Comment on above: Performed By: #### B DOPE SPRAYER, CMP, HSTROPN #### [facility] [address] [place] [address] Dr. Miah Veloz MANUAL DIFF REQ NO Normal [facility] Comment on above: Performed By: #### B DOPE SPRAYER, CMP, HSTROPN #### [facility] [address] [place] [address] Dr. Miah Veloz MCH (RBC) [Entitic mass] 32.4 pg Normal 25.9-34.0 [facility] Comment on above: Performed By: #### B DOPE SPRAYER, CMP, HSTROPN #### [facility] [address] [place] [address] Dr. Miah Veloz MCHC (RBC) [Mass/Vol] 34.2 g/dL Normal 29.9-35.2 [facility] Comment on above: Performed By: #### B DOPE SPRAYER, CMP, HSTROPN #### [facility] [address] [place] [address] Dr. Miah Veloz MCV (RBC) [Entitic vol] 94.7 fL Critically high 80.0-94 .0 [facility] Comment on above: Performed By: #### B DOPE SPRAYER, CMP, HSTROPN #### [facility] [address] [place] [address] Dr. Miah Veloz MONO # 0.8 103/ul Normal 0.3-0.8 [facility] Comment on above: Performed By: #### B DOPE SPRAYER, CMP, HSTROPN #### [facility] [address] [place] [address] Dr. Miah Veloz Monocytes/100 WBC (Bld) 7.6 % Normal 1.7-12.0 [facility] Comment on above: Performed By: #### B DOPE SPRAYER, CMP, HSTROPN #### [facility] [address] [place] [address] Dr. Miah Veloz NEUT # 5.8 103/ul Normal 1.4-6.5 [facility] ospital Comment on above: Performed By: #### B DOPE SPRAYER, CMP, HSTROPN #### [facility] [address] [place] [address] Dr. Miah Veloz Neutrophils/100 WBC (Bld) 58.8 % Normal 43.0-75.0 [facility] Comment on above: Performed By: #### B DOPE SPRAYER, CMP, HSTROPN #### [facility] [address] [place] [address] Dr. Miah Veloz Platelet mean volume (Bld) [ Entitic vol] 10.3 fL Normal 9.5-13.5 [facility] pital Comment on above: Performed By: #### B DOPE SPRAYER, CMP, HSTROPN #### [facility] [address] [place] [address] Dr. Miah Veloz PLT 184 103/ul Normal 150-450 [facility] Comment on above: Performed By: #### B DOPE SPRAYER, CMP, HSTROPN #### [facility] [address] [place] [address] Dr. Miah Veloz RBC 4.35 106/ul Critically low 4.70-6.10 The [facility] Comment on above: Performed By: #### B DOPE SPRAYER, CMP, HSTROPN #### [facility] [address] [place] [address] Dr. Miah Veloz WBC 9.9 103/ul Normal 4.0-11.0 [facility] Comment on above: Performed By: #### B DOPE SPRAYER, CMP, HSTROPN #### [facility] [address] [place] [address] Dr. Miah Veloz PROF CHEM 8 (BAS METB)on Anion gap [Moles/Vol] 13.2 mmol/L Normal [facility] Comment on above: Performed By: #### B DOPE SPRAYER, CMP, HSTROPN #### [facility] [address] [place] [address] Dr. Miah Veloz Calcium [Mass/Vol] 8.8 mg/dL Normal 8.5-10.1 [facility] Comment on above: Performed By: #### B DOPE SPRAYER, CMP, HSTROPN #### [facility] [address] [place] [address] Dr. Miah Veloz Chloride [Moles/Vol] 107 mmol/L Normal 98-107 [facility] Comment on above: Performed By: #### B DOPE SPRAYER, CMP, HSTROPN #### [facility] [address] [place] [address] Dr. Miah Veloz CO2 [Moles/Vol] 25.5 mmol/L Normal 21.0-32.0 [facility] Comment on above: Performed By: #### B DOPE SPRAYER, CMP, HSTROPN #### [facility] [address] [place] [address] Dr. Miah Veloz Creatinine [Mass/Vol] 1.37 mg/dL Critically high 0.70-1.30 [facility] Comment on above: Performed By: #### B DOPE SPRAYER, CMP, HSTROPN #### [facility] [address] [place] [address] Dr. Miah Veloz EGFR-AF TRINIDADIAN >60 Normal >=60 [facility] Comment on above: Performed By: #### B DOPE SPRAYER, CMP, HSTROPN #### [facility] [address] [place] [address] Dr. Miah Veloz EGFR-NON AF TRINIDADIAN 52 mL/min/1.73m2 Critically low >=60 [facility] Comment on above: Performed By: #### B DOPE SPRAYER, CMP, HSTROPN #### [facility] [address] [place] [address] Dr. Miah Veloz Glucose [Mass/Vol] 103 mg/dL Normal 74-106 [facility] Comment on above: Performed By: #### B DOPE SPRAYER, CMP, HSTROPN #### [facility] [address] [place] [address] Dr. Miah Veloz Potassium [Moles/Vol] 4.7 mmol/L Normal 3.5-5.1 [facility] Comment on above: Performed By: #### B DOPE SPRAYER, CMP, HSTROPN #### [facility] [address] [address] [address] Miah Veloz Sodium [Moles/Vol] 141 mmol/L Normal 136-145 [facility] Comment on above: Performed By: #### B DOPE SPRAYER, CMP, HSTROPN #### [facility] [address] [address] [address] Miah Veloz Urea nitrogen [Mass/Vol] 32.0 mg/dL Critically high 7.0-18 .0 [facility] Comment on above: Performed By: #### B DOPE SPRAYER, CMP, HSTROPN #### [facility] [address] [address] [address] Miah Veloz Urea nitrogen/Creatinine [Mass ratio] 23.4 mg/mg Normal [facility] Comment on above: Performed By: #### B DOPE SPRAYER, CMP, HSTROPN #### [facility] [address] [address] [address] Miah Veloz ECHOCARDIO M/2D COMPLETEon 0 08-05-2022 ECHOCARDIO M/2D COMPLETE Patient: GARRY STREETER Exam Date: 08/05/2022 : 1955 Gender:M [facility] #: [id number] Family : Order #: [id number] CLICK HERE TO VIEW EXAM ECHOCARDIOGRAM REPORT [...] M.D. on 08/05/2022 at 14:32 Normal [facility] PROF 14(COMP METB)on 022 Albumin [Mass/Vol] 3.4 g/dL Normal 3.4-5.0 [facility] Comment on above: Performed By: #### B DOPE SPRAYER, CMP, HSTROPN #### [facility] [address] [place] [address] Dr. Miah Veloz Albumin/Globulin [Mass ratio] 0.9 {ratio} Normal [facility] Comment on above: Performed By: #### B DOPE SPRAYER, CMP, HSTROPN #### [facility] [address] [address] [address] Miah Veloz ALP [Catalytic activity/Vol] 73 U/L Normal 46-116 [facility] Comment on above: Performed By: #### B DOPE SPRAYER, CMP, HSTROPN #### [facility] [address] [address] [address] Miah Veloz ALT [Catalytic activity/Vol] 31 U/L Normal 16-63 [facility] Comment on above: Performed By: #### B DOPE SPRAYER, CMP, HSTROPN #### [facility] [address] [place] [address] Dr. Miah Veloz Anion gap [Moles/Vol] 13.6 mmol/L Normal [facility] Comment on above: Performed By: #### B DOPE SPRAYER, CMP, HSTROPN #### [facility] [address] [place] [address] Dr. Miah Veloz AST [Catalytic activity/Vol] 14 U/L Critically low 15- 37 [facility] Comment on above: Performed By: #### B DOPE SPRAYER, CMP, HSTROPN #### [facility] [address] [place] [address] Dr. Miah eVloz Bilirubin [Mass/Vol] 0.6 mg/dL Normal 0.2-1.0 [facility] Comment on above: Performed By: #### B DOPE SPRAYER, CMP, HSTROPN #### [facility] [address] [place] [address] Dr. Miah Veloz Calcium [Mass/Vol] 8.8 mg/dL Normal 8.5-10.1 [facility] Comment on above: Performed By: #### B DOPE SPRAYER, CMP, HSTROPN #### [facility] [address] [place] [address] Dr. Miah Veloz Chloride [Moles/Vol] 105 mmol/L Normal 98-107 [facility] Comment on above: Performed By: #### B DOPE SPRAYER, CMP, HSTROPN #### [facility] [address] [place] [address] Dr. Miah Veloz CO2 [Moles/Vol] 27.7 mmol/L Normal 21.0-32.0 [facility] Comment on above: Performed By: #### B DOPE SPRAYER, CMP, HSTROPN #### [facility] [address] [place] [address] Dr. Miah Veloz Creatinine [Mass/Vol] 1.17 mg/dL Normal 0.70-1.30 [facility] Comment on above: Performed By: #### B DOPE SPRAYER, CMP, HSTROPN #### [facility] [address] [place] [address] Dr. Miah Veloz EGFR-AF TRINIDADIAN >60 Normal >=60 [facility] Comment on above: Performed By: #### B DOPE SPRAYER, CMP, HSTROPN #### [facility] [address] [place] [address] Dr. Miah Veloz EGFR-NON AF TRINIDADIAN >60 Normal >=60 [facility] Comment on above: Performed By: #### B DOPE SPRAYER, CMP, HSTROPN #### [facility] [address] [place] [address] Dr. Miah Veloz Globulin (S) [Mass/Vol] 3.9 g/dL Normal [facility] Comment on above: Performed By: #### B DOPE SPRAYER, CMP, HSTROPN #### [facility] [address] [place] [address] Dr. Miah Veloz Glucose [Mass/Vol] 138 mg/dL Critically high 74-106 [facility] Comment on above: Performed By: #### B DOPE SPRAYER, CMP, HSTROPN #### [facility] [address] [place] [address] Dr. Miah Veloz Potassium [Moles/Vol] 4.3 mmol/L Normal 3.5-5.1 [facility] Comment on above: Performed By: #### B DOPE SPRAYER, CMP, HSTROPN #### [facility] [address] [place] [address] Dr. Miah Veloz Protein [Mass/Vol] 7.3 g/dL Normal 6.4-8.2 [facility] Comment on above: Performed By: #### B DOPE SPRAYER, CMP, HSTROPN #### [facility] [address] [place] [address] Dr[address] Miah Veloz Sodium [Moles/Vol] 142 mmol/L Normal 136-145 [facility] Comment on above: Performed By: #### B DOPE SPRAYER, CMP, HSTROPN #### [facility] [address] [address] [address] Miah Veloz Urea nitrogen [Mass/Vol] 25.0 mg/dL Critically high 7.0-18 .0 [facility] Comment on above: Performed By: #### B DOPE SPRAYER, CMP, HSTROPN #### [facility] [address] [place] [address] Dr. Miah Veloz Urea nitrogen/Creatinine [Mass ratio] 21.4 mg/mg Normal [facility] Comment on above: Performed By: #### B DOPE SPRAYER, CMP, HSTROPN #### [facility] [address] [address] [address] Miah Veloz US BRANDO DOP LEG [...] MURPHY GRIFFIN Date: 2022-05-14 16:51 Normal The [facility] CBC AUTO DIFFon 04-28-2022 BASO # 0.1 103/ul Normal 0.0-0.1 [facility] Comment on above: Performed By: #### C BC #### [facility] [address] [place] [address] Dr. Miah Veloz Basophils/100 WBC (Bld) 0.7 % Normal 0.2-2.0 [facility] Comment on above: Performed By: #### C BC #### [facility] [address] [place] [address] Dr. Miah Veloz EO # 0.2 103/ul Normal 0.0-0.7 [facility] ostal Comment on above: Performed By: #### C BC #### [facility] [address] [place] [address] Dr. Miah Veloz Eosinophils/100 WBC (Bld) 2.9 % Normal 0.9-7.0 [facility] Comment on above: Performed By: #### C BC #### [facility] [address] [place] [address] Dr. Miah Veloz Erythrocyte distribution wid th (RBC) [Ratio] 13.2 % Normal 11.0-15.0 [facility] Comment on above: Performed By: #### C BC #### [facility] [address] [place] [address] Dr. Miah Veloz Hematocrit (Bld) [Volume fraction] 36.9 % Critically low 42.0-54.0 [facility] Comment on above: Performed By: #### C BC #### [facility] [address] [place] [address] Dr. Miah Veloz Hemoglobin (Bld) [Mass/Vol] 12.4 g/dL Critically low 14.0 -18.0 [facility] Comment on above: Performed By: #### C BC #### [facility] [address] [place] [address] Dr. Miah Veloz IG # 0.03 10e3/ul Normal 0.00-0.03 [facility] Comment on above: Performed By: #### C BC #### [facility] [address] [place] [address] Dr. Miah Veloz IG % 0.4 % Normal 0.0-0.5 [facility] Comment on above: Performed By: #### C BC #### [facility] [address] [address] [address] Miah Veloz LYMPH # 1.8 103/ul Normal 1.2-3.8 [facility] Comment on above: Performed By: #### C BC #### [facility] [address] [place] [address] Dr. Miah Veloz Lymphocytes/100 WBC (Bld) 23.0 % Normal 20.5-60.0 [facility] Comment on above: Performed By: #### C BC #### [facility] [address] [place] [address] Dr. Miah Veloz MANUAL DIFF REQ NO Normal [facility] Comment on above: Performed By: #### C BC #### [facility] [address] [place] [address] Dr. Miah Veloz MCH (RBC) [Entitic mass] 32.3 pg Normal 25.9-34.0 [facility] Comment on above: Performed By: #### C BC #### [facility] [address] [place] [address] Dr. Miah Veloz MCHC (RBC) [Mass/Vol] 33.6 g/dL Normal 29.9-35.2 [facility] Comment on above: Performed By: #### C BC #### [facility] [address] [place] [address] Dr. Miah Veloz MCV (RBC) [Entitic vol] 96.1 fL Critically high 80.0-94 .0 [facility] Comment on above: Performed By: #### C BC #### [facility] [address] [place] [address] Dr. Miah Veloz MONO # 0.8 103/ul Normal 0.3-0.8 [facility] Comment on above: Performed By: #### C BC #### [facility] [address] [place] [address] Dr. Miah Veloz Monocytes/100 WBC (Bld) 10.2 % Normal 1.7-12.0 [facility] Comment on above: Performed By: #### C BC #### [facility] [address] [address] [address] Miah Veloz NEUT # 4.8 103/ul Normal 1.4-6.5 [facility] Comment on above: Performed By: #### C BC #### [facility] [address] [address] [address] Miah Veloz Neutrophils/100 WBC (Bld) 62.8 % Normal 43.0-75.0 [facility] Comment on above: Performed By: #### C BC #### [facility] [address] [address] [address] Miah Veloz Platelet mean volume (Bld) [ Entitic vol] 10.2 fL Normal 9.5-13.5 [facility] Comment on above: Performed By: #### C BC #### [facility] [address] [address] [address] Miah Veloz PLT 224 103/ul Normal 150-450 [facility] Comment on above: Performed By: #### C BC #### [facility] [address] [address] [address] Miah Veloz RBC 3.84 106/ul Critically low 4.70-6.10 The [facility] Comment on above: Performed By: #### C BC #### [facility] [address] [address] [address] Miah Veloz WBC 7.7 103/ul Normal 4.0-11.0 [facility] Comment on above: Performed By: #### C BC #### [facility] [address] [address] [address] Miah Veloz PROF CHEM 8 (BAS METB)on Anion gap [Moles/Vol] 14.4 mmol/L Normal [facility] Comment on above: Performed By: #### B DOPE SPRAYER, CMP, HSTROPN #### [facility] [address] [address] [address] Miah Veloz Calcium [Mass/Vol] 8.3 mg/dL Critically low 8.5-10.1 [facility] Comment on above: Performed By: #### B DOPE SPRAYER, CMP, HSTROPN #### [facility] [address] [address] [address] Miah Veloz Chloride [Moles/Vol] 106 mmol/L Normal 98-107 [facility] Comment on above: Performed By: #### B DOPE SPRAYER, CMP, HSTROPN #### [facility] [address] [address] [address] Miah Veloz CO2 [Moles/Vol] 27.0 mmol/L Normal 21.0-32.0 [facility] Comment on above: Performed By: #### B DOPE SPRAYER, CMP, HSTROPN #### [facility] [address] [place] [address] Dr. Miah Veloz Creatinine [Mass/Vol] 1.12 mg/dL Normal 0.70-1.30 [facility] Comment on above: Performed By: #### B DOPE SPRAYER, CMP, HSTROPN #### [facility] [address] [place] [address] Dr. Miah Veloz EGFR-AF TRINIDADIAN >60 Normal >=60 [facility] Comment on above: Performed By: #### B DOPE SPRAYER, CMP, HSTROPN #### [facility] [address] [place] [address] Dr. Miah Veloz EGFR-NON AF TRINIDADIAN >60 Normal >=60 [facility] Comment on above: Performed By: #### B DOPE SPRAYER, CMP, HSTROPN #### [facility] [address] [place] [address] Dr. Miah Veloz Glucose [Mass/Vol] 103 mg/dL Normal 74-106 [facility] Comment on above: Performed By: #### B DOPE SPRAYER, CMP, HSTROPN #### [facility] [address] [address] [address] Miah Veloz Potassium [Moles/Vol] 3.4 mmol/L Critically low 3.5-5.1 [facility] Comment on above: Performed By: #### B DOPE SPRAYER, CMP, HSTROPN #### [facility] [address] [place] [address] Dr. Miah Veloz Sodium [Moles/Vol] 144 mmol/L Normal 136-145 [facility] Comment on above: Performed By: #### B DOPE SPRAYER, CMP, HSTROPN #### [facility] [address] [place] [address] Dr. Miah Veloz Urea nitrogen [Mass/Vol] 21.0 mg/dL Critically high 7.0-18 .0 [facility] Comment on above: Performed By: #### B DOPE SPRAYER, CMP, HSTROPN #### [facility] [address] [place] [address] Dr. Miah Veloz Urea nitrogen/Creatinine [Mass ratio] 18.8 mg/mg Normal [facility] Comment on above: Performed By: #### B DOPE SPRAYER, CMP, HSTROPN #### [facility] [address] [place] [address] Dr. Miah Veloz CBC AUTO DIFFon 04-27-2022 BASO # 0.0 103/ul Normal 0.0-0.1 [facility] Comment on above: Performed By: #### B DOPE SPRAYER, CMP, HSTROPN #### [facility] [address] [place] [address] Dr. Miah Veloz Basophils/100 WBC (Bld) 0.4 % Normal 0.2-2.0 [facility] Comment on above: Performed By: #### B DOPE SPRAYER, CMP, HSTROPN #### [facility] [address] [place] [address] Dr. Miah Veloz EO # 0.2 103/ul Normal 0.0-0.[address] [facility] Comment on above: Performed By: #### B DOPE SPRAYER, CMP, HSTROPN #### [facility] [address] [place] [address] Dr. Miah Veloz Eosinophils/100 WBC (Bld) 3.2 % Normal 0.9-7.0 [facility] Comment on above: Performed By: #### B DOPE SPRAYER, CMP, HSTROPN #### [facility] [address] [place] [address] Dr. Miah Veloz Erythrocyte distribution wid th (RBC) [Ratio] 13.6 % Normal 11.0-15.0 [facility] Comment on above: Performed By: #### B DOPE SPRAYER, CMP, HSTROPN #### [facility] [address] [place] [address] Dr. Miah Veloz Hematocrit (Bld) [Volume fraction] 36.7 % Critically low 42.0-54.0 [facility] Comment on above: Performed By: #### B DOPE SPRAYER, CMP, HSTROPN #### [facility] [address] [place] [address] Dr. Miah Veloz Hemoglobin (Bld) [Mass/Vol] 12.0 g/dL Critically low 14.0 -18.0 [facility] Comment on above: Performed By: #### B DOPE SPRAYER, CMP, HSTROPN #### [facility] [address] [place] [address] Dr. Miah Veloz IG # 0.02 10e3/ul Normal 0.00-0.03 [facility] Comment on above: Performed By: #### B DOPE SPRAYER, CMP, HSTROPN #### [facility] [address] [place] [address] Dr. Miah Veloz IG % 0.3 % Normal 0.0-0.5 [facility] Comment on above: Performed By: #### B DOPE SPRAYER, CMP, HSTROPN #### [facility] [address] [place] [address] Dr. Miah Veloz LYMPH # 1.6 103/ul Normal 1.2-3.8 [facility] Comment on above: Performed By: #### B DOPE SPRAYER, CMP, HSTROPN #### [facility] [address] [place] [address] Dr. Miah Veloz Lymphocytes/100 WBC (Bld) 22.2 % Normal 20.5-60.0 [facility] Comment on above: Performed By: #### B DOPE SPRAYER, CMP, HSTROPN #### [facility] [address] [place], [place] [id number] Dr. Miah Veloz MANUAL DIFF REQ NO Normal The [facility] Comment on above: Performed By: #### B DOPE SPRAYER, CMP, HSTROPN #### [facility] [address] [place] [address] Dr. Miah Veloz MCH (RBC) [Entitic mass] 32.3 pg Normal 25.9-34.0 [facility] Comment on above: Performed By: #### B DOPE SPRAYER, CMP, HSTROPN #### [facility] [address] [place] [address] Dr. Miah Veloz MCHC (RBC) [Mass/Vol] 32.7 g/dL Normal 29.9-35.2 [facility] Comment on above: Performed By: #### B DOPE SPRAYER, CMP, HSTROPN #### [facility] [address] [place] [address] Dr. Miah Veloz MCV (RBC) [Entitic vol] 98.7 fL Critically high 80.0-94 .0 [facility] Comment on above: Performed By: #### B DOPE SPRAYER, CMP, HSTROPN #### [facility] [address] [place] [address] Dr. Miah Veloz MONO # 0.7 103/ul Normal 0.3-0.8 [facility] Comment on above: Performed By: #### B DOPE SPRAYER, CMP, HSTROPN #### [facility] [address] [place] [address] Dr. Miah Veloz Monocytes/100 WBC (Bld) 9.1 % Normal 1.7-12.0 [facility] Comment on above: Performed By: #### B DOPE SPRAYER, CMP, HSTROPN #### [facility] [address] [place] [address] Dr. Miah Veloz NEUT # 4.6 103/ul Normal 1.4-6.5 [facility] Comment on above: Performed By: #### B DOPE SPRAYER, CMP, HSTROPN #### [facility] [address] [place] [address] Dr. Miah Veloz Neutrophils/100 WBC (Bld) 64.8 % Normal 43.0-75.0 [facility] Comment on above: Performed By: #### B DOPE SPRAYER, CMP, HSTROPN #### [facility] [address] [place] [address] Dr. Miah Veloz Platelet mean volume (Bld) [ Entitic vol] 10.2 fL Normal 9.5-13.5 [facility] Comment on above: Performed By: #### B DOPE SPRAYER, CMP, HSTROPN #### [facility] [address] [place] [address] Dr. Miah Veloz PLT 200 103/ul Normal 150-450 [facility] Comment on above: Performed By: #### B DOPE SPRAYER, CMP, HSTROPN #### [facility] [address] [place] [address] Dr. Miah Veloz RBC 3.72 106/ul Critically low 4.70-6.10 The [facility] Comment on above: Performed By: #### B DOPE SPRAYER, CMP, HSTROPN #### [facility] [address] [place] [address] Dr. Miah Veloz WBC 7.1 103/ul Normal 4.0-11.0 [facility] Comment on above: Performed By: #### B DOPE SPRAYER, CMP, HSTROPN #### [facility] [address] [place] [address] Dr. Miah Veloz ECHOCARDIO M/2D COMPLETEon 0 04-27-2022 ECHOCARDIO M/2D COMPLETE Patient: GARRY STREETER Exam Date: 04/27/2022 : 1955 Gender:M Ordering : DR ANDREI ORONA . Admission #: [id number] Family : Order #: [id number] CLICK HERE TO VIEW EXAM ECHOCARDIOGRAM REPORT [...] Area(A4C): 22.40 cm2 Left Atrium Systolic Volume(A2C): 04046 mm3 Left Atrium Systolic Volume(A4C): 68477 mm3 Mitral Valve Mitral Valve E-Wave Peak [...] Palacios M.D. on 04/27/2022 at 16:58 Normal [facility] PROF CHEM 8 (BAS METB)on Anion gap [Moles/Vol] 13.3 mmol/L Normal [facility] Comment on above: Performed By: #### B MP #### [facility] [address] [place] [address] Dr. Miah Veloz Calcium [Mass/Vol] 8.2 mg/dL Critically low 8.5-10.1 [facility] Comment on above: Performed By: #### B MP #### [facility] [address] [place] [address] Dr. Miah Veloz Chloride [Moles/Vol] 107 mmol/L Normal 98-107 [facility] Comment on above: Performed By: #### B MP #### [facility] [address] [place] [address] Dr. Miah Veloz CO2 [Moles/Vol] 27.5 mmol/L Normal 21.0-32.0 [facility] Comment on above: Performed By: #### B MP #### [facility] [address] [place] [address] Dr. Miah Veloz Creatinine [Mass/Vol] 0.97 mg/dL Normal 0.70-1.30 [facility] Comment on above: Performed By: #### B MP #### [facility] [address] [place] [address] Dr. Miah Veloz EGFR-AF TRINIDADIAN >60 Normal >=60 [facility] Comment on above: Performed By: #### B MP #### [facility] [address] [place] [address] Dr. Miah Veloz EGFR-NON AF TRINIDADIAN >60 Normal >=60 [facility] Comment on above: Performed By: #### B MP #### [facility] [address] [place] [address] Dr. Miah Veloz Glucose [Mass/Vol] 102 mg/dL Normal 74-106 [facility] Comment on above: Performed By: #### B MP #### [facility] [address] [address] [address] Miah Veloz Potassium [Moles/Vol] 3.8 mmol/L Normal 3.5-5.1 [facility] Comment on above: Performed By: #### B MP #### [facility] [address] [place] [address] Dr. Miah Veloz Sodium [Moles/Vol] 144 mmol/L Normal 136-145 [facility] Comment on above: Performed By: #### B MP #### [facility] [address] [place] [address] Dr. Miah Veloz Urea nitrogen [Mass/Vol] 17.0 mg/dL Normal 7.0-18.0 [facility] Comment on above: Performed By: #### B MP #### [facility] [address] [place] [address] Dr. Miah Veloz Urea nitrogen/Creatinine [Mass ratio] 17.5 mg/mg Normal [facility] Comment on above: Performed By: #### B MP #### [facility] [address] [place] [address] Dr. Miah Veloz BNPon 04-26-2022 Natriuretic peptide B (Bld) [Mass/Vol] 1105.0 pg/mL Critically high <=900.0 [facility] Comment on above: Performed By: #### B DOPE SPRAYER, CMP, HSTROPN #### [facility] [address] [place] [address] Dr. Miah Veloz CBC AUTO DIFFon 04-26-2022 BASO # 0.0 103/ul Normal 0.0-0.1 [facility] Comment on above: Performed By: #### C BC #### [facility] [address] [place] [address] Dr. Miah Veloz Basophils/100 WBC (Bld) 0.6 % Normal 0.2-2.0 [facility] Comment on above: Performed By: #### C BC #### [facility] [address] [place] [address] Dr. Miah Veloz EO # 0.2 103/ul Normal 0.0-0.7 [facility] Comment on above: Performed By: #### C BC #### [facility] [address] [place] [address] Dr. Miah Veloz Eosinophils/100 WBC (Bld) 2.1 % Normal 0.9-7.0 [facility] Comment on above: Performed By: #### C BC #### [facility] [address] [place] [address] Dr. Miah Veloz Erythrocyte distribution wid th (RBC) [Ratio] 13.7 % Normal 11.0-15.0 [facility] Comment on above: Performed By: #### C BC #### [facility] [address] [place] [address] Dr. Miah Veloz Hematocrit (Bld) [Volume fraction] 39.3 % Critically low 42.0-54.0 [facility] Comment on above: Performed By: #### C BC #### [facility] [address] [place] [address] Dr. Miah Veloz Hemoglobin (Bld) [Mass/Vol] 13.0 g/dL Critically low 14.0 -18.0 [facility] Comment on above: Performed By: #### C BC #### [facility] [address] [place] [address] Dr. Miah Veloz IG # 0.02 10e3/ul Normal 0.00-0.03 [facility] Comment on above: Performed By: #### C BC #### [facility] [address] [place] [address] Dr. Miah Veloz IG % 0.3 % Normal 0.0-0.5 [facility] Comment on above: Performed By: #### C BC #### [facility] [address] [address] [address] Miah Veloz LYMPH # 1.1 103/ul Critically low 1.2-3.8 [facility] Comment on above: Performed By: #### C BC #### [facility] [address] [address] [address] Miah Veloz Lymphocytes/100 WBC (Bld) 16.1 % Critically low 20.5-6 0.0 [facility] Comment on above: Performed By: #### C BC #### [facility] [address] [address] [address] Miah Veloz MANUAL DIFF REQ NO Normal [facility] Comment on above: Performed By: #### C BC #### [facility] [address] [place] [address] Dr. Miah Veloz MCH (RBC) [Entitic mass] 32.7 pg Normal 25.9-34.0 [facility] Comment on above: Performed By: #### C BC #### [facility] [address] [address] [address] Miah Veloz MCHC (RBC) [Mass/Vol] 33.1 g/dL Normal 29.9-35.2 [facility] Comment on above: Performed By: #### C BC #### [facility] [address] [place] [address] Dr. Miah Veloz MCV (RBC) [Entitic vol] 98.7 fL Critically high 80.0-94 .0 [facility] Comment on above: Performed By: #### C BC #### [facility] [address] [address] [address] Miah Veloz MONO # 0.5 103/ul Normal 0.3-0.[address] [facility] Comment on above: Performed By: #### C BC #### [facility] [address] [address] [address] Miah Veloz Monocytes/100 WBC (Bld) 7.6 % Normal 1.7-12.0 [facility] Comment on above: Performed By: #### C BC #### [facility] [address] [place] [address] Dr. Miah Veloz NEUT # 5.2 103/ul Normal 1.4-6.5 [facility] Comment on above: Performed By: #### C BC #### [facility] [address] [address] [address] Miah Veloz Neutrophils/100 WBC (Bld) 73.3 % Normal 43.0-75.0 [facility] Comment on above: Performed By: #### C BC #### [facility] [address] [address] [address] Miah Veloz Platelet mean volume (Bld) [ Entitic vol] 10.7 fL Normal 9.5-13.5 [facility] Comment on above: Performed By: #### C BC #### [facility] [address] [place] [address] Dr. Miah Veloz PLT 200 103/ul Normal 150-450 [facility] Comment on above: Performed By: #### C BC #### [facility] [address] [place] [address] Dr. Miah Veloz RBC 3.98 106/ul Critically low 4.70-6.10 [facility] Comment on above: Performed By: #### C BC #### [facility] [address] [place] [address] Dr. Miah Veloz WBC 7.1 103/ul Normal 4.0-11.0 [facility] Comment on above: Performed By: #### C BC #### [facility] [address] [place] [address] Dr. Miah Veloz CTA CHEST WO W [...] NICK CABRALES Date: 2022-04-26 10:50 Normal [facility] Covid-19 PCR (CVDTB)on SARS-CoV-2 (COVID-19) RNA GÓMEZ+probe Ql (Unsp spec) Not detected Normal NOT DETECTED [facility] Comment on above: Result Comment: [...] for this test is supported by the [employer] Service's declaration that [...] longer be used). Performed By: #### B DOPE SPRAYER, CMP, HSTROPN #### [facility] [address] [place] [address] Dr. Miah Veloz PROF 14(COMP METB)on 022 Albumin [Mass/Vol] 3.1 g/dL Critically low 3.4-5.0 [facility] Comment on above: Performed By: #### B DOPE SPRAYER, CMP, HSTROPN #### [facility] [address] [place] [address] Dr. Miah Veloz Albumin/Globulin [Mass ratio] 0.9 {ratio} Normal [facility] Comment on above: Performed By: #### B DOPE SPRAYER, CMP, HSTROPN #### [facility] [address] [place] [address] Dr. Miah Veloz ALP [Catalytic activity/Vol] 54 U/L Normal 46-116 [facility] Comment on above: Performed By: #### B DOPE SPRAYER, CMP, HSTROPN #### [facility] [address] [place] [address] Dr. Miah Veloz ALT [Catalytic activity/Vol] 63 U/L Normal 16-63 [facility] Comment on above: Performed By: #### B DOPE SPRAYER, CMP, HSTROPN #### [facility] [address] [place] [address] Dr. Miah Veloz Anion gap [Moles/Vol] 13.9 mmol/L Normal [facility] Comment on above: Performed By: #### B DOPE SPRAYER, CMP, HSTROPN #### [facility] [address] [place] [address] Dr. Miah Veloz AST [Catalytic activity/Vol] 32 U/L Normal 15-37 [facility] Comment on above: Performed By: #### B DOPE SPRAYER, CMP, HSTROPN #### [facility] [address] [place] [address] Dr. Miah Veloz Calcium [Mass/Vol] 8.7 mg/dL Normal 8.5-10.1 [facility] Comment on above: Performed By: #### B DOPE SPRAYER, CMP, HSTROPN #### [facility] [address] [place] [address] Dr. Miah Veloz Chloride [Moles/Vol] 108 mmol/L Critically high 98-107 [facility] Comment on above: Performed By: #### B DOPE SPRAYER, CMP, HSTROPN #### [facility] [address] [place] [address] Dr. Miah Veloz CO2 [Moles/Vol] 24.3 mmol/L Normal 21.0-32.0 [facility] Comment on above: Performed By: #### B DOPE SPRAYER, CMP, HSTROPN #### [facility] [address] [place] [address] Dr. Miah Veloz Creatinine [Mass/Vol] 0.90 mg/dL Normal 0.70-1.30 [facility] Comment on above: Performed By: #### B DOPE SPRAYER, CMP, HSTROPN #### [facility] [address] [place] [address] Dr. iMah Veloz EGFR-AF TRINIDADIAN >60 Normal >=60 [facility] Comment on above: Performed By: #### B DOPE SPRAYER, CMP, HSTROPN #### [facility] [address] [place] [address] Dr. Miah Veloz EGFR-NON AF TRINIDADIAN >60 Normal >=60 [facility] Comment on above: Performed By: #### B DOPE SPRAYER, CMP, HSTROPN #### [facility] [address] [place] [address] Dr. Miah Veloz Globulin (S) [Mass/Vol] 3.6 g/dL Normal [facility] Comment on above: Performed By: #### B DOPE SPRAYER, CMP, HSTROPN #### [facility] [address] [place] [address] Dr. Miah Veloz Glucose [Mass/Vol] 146 mg/dL Critically high 74-106 [facility] Comment on above: Performed By: #### B DOPE SPRAYER, CMP, HSTROPN #### [facility] [address] [place] [address] Dr. Miah Veloz Potassium [Moles/Vol] 4.2 mmol/L Normal 3.5-5.1 [facility] Comment on above: Performed By: #### B DOPE SPRAYER, CMP, HSTROPN #### [facility] [address] [place] [address] Dr. Miah Veloz Protein [Mass/Vol] 6.7 g/dL Normal 6.4-8.2 [facility] Comment on above: Performed By: #### B DOPE SPRAYER, CMP, HSTROPN #### [facility] [address] [place] [address] Dr. Miah Veloz Sodium [Moles/Vol] 142 mmol/L Normal 136-145 [facility] Comment on above: Performed By: #### B DOPE SPRAYER, CMP, HSTROPN #### [facility] [address] [place] [address] Dr. Miah Veloz Urea nitrogen [Mass/Vol] 19.0 mg/dL Critically high 7.0-18 .0 [facility] Comment on above: Performed By: #### B DOPE SPRAYER, CMP, HSTROPN #### [facility] [address] [place] [address] Dr. Miah Veloz Urea nitrogen/Creatinine [Mass ratio] 21.1 mg/mg Normal [facility] Comment on above: Performed By: #### B DOPE SPRAYER, CMP, HSTROPN #### [facility] [address] [place] [address] Dr. Miah Veloz PROTIMEon 04-26-2022 INR Coag (PPP) [Relative time] 1.20 {INR} Normal [facility] Comment on above: Performed By: #### B DOPE SPRAYER, CMP, HSTROPN #### [facility] [address] [place] [address] Dr. Miah Veloz INR GUIDELINES SEE BELOW Normal [facility] Comment on above: Result Comment: JENNIFER RED INR: 2.0 - 3.0 CONDITIONS NOT LISTED BELOW 2.5 - 3.5 FOR PROSTHETIC HEART VALVE REPLACEMENT 2.5 - 3.5 RECURRENT THROMBOSIS Performed By: #### B DOPE SPRAYER, CMP, HSTROPN #### [facility] [address] [place] [address] Dr. Miah Veloz PT Coag (PPP) [Time] 12.8 s Critically high 9.0-11.6 [facility] Comment on above: Performed By: #### B DOPE SPRAYER, CMP, HSTROPN #### [facility] [address] [place], [place] [address] Dr. Miah Veloz PTTon 04-26-2022 aPTT Coag (Bld) [Time] 28.5 s Normal 22.3-36.2 [facility] Comment on above: Performed By: #### B DOPE SPRAYER, CMP, HSTROPN #### [facility] [address] [place], [place] [address] Dr. Miah Veloz TROPONIN, HIGH SENSITIVITYon 04-26-2022 HSTROP 24.7 pg/mL Normal 4.0-76.[address] [facility] Comment on above: Result Comment: CUT- OFF POINTS HAVE BEEN ESTABLISHED BASED ON THE FOURTH UNIVERSAL DEFINITIONS OF MYOCARDIAL INFARCTION. THE UPPER REFERENCE LIMIT (URL) OF TROPONIN, DEFINED THE 99TH PERCENTILE OF cTnI DISTRIBUTION IN A REFERENCE POPULATION, HAS BEEN CONFIRMED THE DECISION THRESHOLD FOR MA DIAGNOSIS. Performed By: #### B DOPE SPRAYER, CMP, HSTROPN #### [facility] [address] [place] [address] [address] Miah Veloz Encounters Encounter Date Encounter Type Care Provider Facility Start: 10-22-2023 End: 10-22-2023 ambulatory MEET [facility] Start: 08-30-2023 End: 08-30-2023 ambulatory MARTIN SPENCER [facility] Start: 03-22-2023 End: 03-22-2023 ambulatory TACHO [facility] Start: 03-01-2023 End: 03-02-2023 ambulatory SARAH RAMIREZ Facility:[facility] Start: 02-03-2023 End: 02-03-2023 ambulatory SARAH RAMIREZ [facility] Start: 01-15-2023 End: 01-16-2023 ambulatory LUZMA PHAM Facility:[facility] Start: 10-31-2022 Encounter for preprocedural laboratory examination DR TAVIA [place] . [facility] Start: 10-28-2022 End: 10-29-2022 ambulatory TAVIA [place] Facility:[facility] Start: 10-28-2022 End: 10-28-[address] [place] . Facility:[facility] Start: 10-24-2022 End: 10-25-[address] [place] . Facility:[facility] Start: 10-24-2022 End: 10-25-2022 Encounter for preprocedural laboratory examination DR TAVIA [place] . Facility:[facility] Start: 08-12-2022 Encounter for other preprocedural examination TACHO HOLLAND [facility] Start: 08-10-2022 End: 08-11-2022 ambulatory LEANDROBARPatience PRADEEPSYLVIABARBARA Facility:[facility] Start: 08-10-2022 End: 08-11-2022 Encounter for other preprocedural examination TACHO HOLLAND Facility:[facility] Start: 08-05-2022 End: 08-06-2022 ambulatory TACHO HOLLAND Facility:[facility] Start: 05-14-2022 End: 05-15-[address] DOCTOR FREED Facility:[facility] Start: 04-26-2022 End: 04-28-2022 Evaluation and management of inpatient [facility] Facility:[facility] Procedures Date Procedure Procedure Detail Performing Clinician Start: 03-22-2023 Follow-up visit Follow-up TACHO HOLLAND Payers Date Payer Category Payer Medicare [id number] 1961 Unknown [id number] 1955 Unknown [id number] .[id number] [id number] 1955 Unknown [id number] .. [id number] 1955 Unknown [id number] ..[id number] 1953 Unknown [id number] ..[id number] 1953 Unknown [id number] ..[id number] 1953 Unknown [id number] ..84 [id number] 1953 Unknown [id number] 2..84 [id number] 1953 Unknown [id number] 2.16.84 [id number] 1953 Unknown [id number] 2.16.84 [id number] Clinical Notes 04-26-2022 to 10-22-2023 Note Date & Type Note Facility 10-22-2023 Note Patient here for [facility] for afib w/ RVR. He was [...] All other systems reviewed and are negative. [facility] 08-30-2023 Note UTP CARDIOLOGY PROGR ESS NOTE HPI: Garry Streeter is a 68 y.o. male past medical history of heart failure improved ejection fraction, paroxysmal atrial fibrillation, hypertension, and valvular heart disease seen in follow-up. Update: 03/22/2023 Pt is here for med check F/U for [facility] pt states he stopped taking some of [...] Conclusions: Biphasic cardio (more content not included)... [facility] 08-30-2023 Note Patient here for 6 [...] All other systems reviewed and are negative. [facility] 03-22-2023 Note UTP CARDIOLOGY PROGR ESS [...] normal. Mild aor (more content not included)... [facility] 02-03-2023 Note No edema today [facility] 02-03-2023 Note Stable [facility] 02-03-2023 Note EKG today-Sinus manny ycardia with PACs/PVCs- And artifact, Otherwise normal EKG He is adamant he is still taking Eliquis anticoagulation, Pharmacy denies that he is filled Eliquis or metoprolol in the last 6 months. Discussed with patient risk for stroke with paroxysmal atrial fib- He states he has cardia Monitor at home and he has not had any A-fib [facility] 02-03-2023 Note [facility] I-II Currently appears [...] Staff To obtain recent labs from PCP [facility] 02-03-2023 Note UTP CARDIOLOGY PROGR ESS NOTE HPI: Garry Streeter is a 67 y.o. male here for Med Refill, Atrial Fibrillation, and Congestive Heart Failure Known h/o Chronic systolic heart failure, Paroxysmal atrial fib, edema, and noncompliance to med regimen. Pt is here for med check F/U for [facility] pt states he stopped taking some of [...] this time. Staff called pharmacy- [facility] and patient states this is his only [...] 01/15/2023- Cardiac Cath Report 08/12/2022 Performing Physicians: -Tahco Holland MD Procedures Performed: -Bilateral selective coronary [...] Right ventricular syst (more content not included)... [facility] 02-03-2023 Note Pt is here for med c heck F/U [facility] pt states he stop take some of his meds due to having Diarrhea more then 3 times a day pt also stated he was having problems walking due to gout. Review of Systems Gastrointestinal: Positive for diarrhea. All other systems reviewed and are negative. [facility] 04-26-2022 Note PROCEDURE: XR KNEE L T 4V or > COMPARISON: None. HISTORY: Swelling FINDINGS: BONES:No fracture, acute abnormality, or significant arthropathy. SOFT TISSUES:Negative. No visible soft tissue swelling. EFFUSION:Moderate suprapatellar joint effusion OTHER: Negative. IMPRESSION: Moderate joint effusion Electronically authenticated by: NICK CABRALES Date: 2022-04-26 10:09 [facility] Summary Purpose Family History No Family History Records FoundNo Family History Records FoundNo Family History Records Found Advance Directives No Advanced Directives Records FoundNo Advanced Directives Records FoundNo Advanced Directives Records Found Additional Source Comments (unrecognized sect ion and content) No Status Records FoundNo Status Records FoundNo Status Records Found INFORMATION SOURCE (unrecogn ized section and content) DATE CREATED AUTHOR 10/30/2022 [facility] DATE CREATED AUTHOR AUTHOR'S ORGANIZ ATION 03/17/2023 [facility] DATE CREATED AUTHOR AUTHOR'S ORGANIZ ATION 11/07/2023 [facility] FOR RECORDS PERTAINING TO PATIENTS WHO [...] BE BASED ON THE PRIMARY CLINICAL RECORDS. [employer] [facility]. provides no warranty or guarantee of the accuracy or completeness of information in this document.
== END 2023-10-09 14:35 | disposition home or self-care (01) ==
LOC: ER 16:16 → ICU 10-09 07:03
PROVIDERS: Family Medicine; Admitting Provider Family Medicine; Emergency Provider Emergency Medicine; PCP Nurse Practitioner Primary Care; Visit Provider Family Medicine
DX: I48.91 Unspecified atrial fibrillation (principal); I11.0 Hypertensive heart disease with heart failure; I50.22 Chronic systolic (congestive) heart failure; L30.8 Other specified dermatitis; Z87.891 Personal history of nicotine dependence; Z79.01 Long term (current) use of anticoagulants; Z79.899 Other long term (current) drug therapy; D50.9 Iron deficiency anemia, unspecified; R73.9 Hyperglycemia, unspecified; E83.51 Hypocalcemia; E78.1 Pure hyperglyceridemia; E44.0 Moderate protein-calorie malnutrition; Z68.28 Body mass index [BMI] 28.0-28.9, adult
CPT/HCPCS: 36415; 71045; 80048; 80053; 80061; 83036; 83735; 83880; 84443; 84484; 85025; 85378; 93005; 94761; 96365; 96366; 96376; 99285; G0378

== ENCOUNTER 2023-10-27 10:50 | Outpatient (OUT) | payer BC, SELFPAY ==
[2023-10-28 06:08] LABS: HCV Ab Non Reactive (Non Reactive); HIV Ab/p24 Ag Screen Non Reactive (Non Reactive)
== END 2023-10-27 10:51 | disposition home or self-care (01) ==
LOC: LAB 10:50
PROVIDERS: PCP Nurse Practitioner Primary Care; Visit Provider Nurse Practitioner Primary Care
DX: Z11.59 Encounter for screening for other viral diseases (principal); Z11.4 Encounter for screening for human immunodeficiency virus [HIV]
CPT/HCPCS: 36415; 86803; 87389

== ENCOUNTER 2024-01-12 11:59 | Outpatient (OUT) | payer BC, SELFPAY ==
--- OUTSIDE RECORDS SUMMARY | 2024-01-12 12:19 | XMS_ITS | CCD ---
Author Name Unknown Address [address] [place] [address] Organization [facility] Care Team Providers Care Loom Starter Name Role Phone TAVIA [place] Attending Unavailable [...] LEANDROAMAD Attending Unavailable ALGHOTHANI, MOHAMAD Admitting Unavailable MEET LEE Attending Unavailable SARAH RAMIREZ Attending Unavailable EMILY LARSON Attending Unavailable MARTIN SPENCER Attending Unavailable TACHO HOLLAND Attending Unavailable Allergies Allergy Classification Reported Allergen(s) Allergy Type Date of Onset Reaction(s) Facility (2 sources) Acetaminophen; Translations: [ACETAMINOPHEN] Drug Allergy 09-15-2022 [facility] Repository Problems Active Problems Problem Classification Problem [...] Da te Episodic/Chronic 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; Translations: [PRISON CURRNT [...] Results Test Name Value Interpretation Reference Range Facility Prep for Procedureon 024 Prep for Procedure [id number] Garry Streeter 1955 Date Provider Department Center 12/14/20231986-[facility] Family History Problem Relation Age of Onset Colon cancer Brother Family Status - Relation Status Age at Brother Normal [facility] Orders Onlyon 12-13-2023 Orders Only [id number] Garry Streeter 1955 Date Provider Department Center 12/13/2023 [facility] Family History Problem Relation Age of Onset Colon cancer Brother Family Status - Relation Status Age at Brother Normal [facility] Telemedicineon 12-07-2023 Telemedicine [id number] Garry Streeter 1955 [facility] Provider Department [place] 12/07/2023 Kenneth-EMILY LARSON [facility] Family History Problem Relation Age of Onset Colon cancer Brother Family Status - Relation Status Age at Brother Level of Service:92788 ND PHYS/QHP TELEPHONE EVALUATION 11-20 MIN [facility] 36on 11-05-2023 36 I dont see a specifi c reason why he could not be started on it so should be fine Normal [facility] Telephoneon 11-04-2023 Telephone [id number] Garry Streeter 1955 [facility] Department [place] 11/04/2023 Damian-MONICA DACOSTA [facility] Family History Problem Relation Age of Onset Colon cancer Brother Family Status - Relation Status Age at Brother Normal [facility] Office Visiton 10-22-2023 Follow-up visit [id number] Angeles 1955 [facility] Provider Department [place] 10/22/2023 Chencho-MEET LEE CARD [facility] Family History Problem Relation Age of Onset Colon cancer Brother Family Status - Relation Status Age at Brother Level of Service:54014 ND OFFICE/OUTPATIENT ESTABLISHED MOD MDM 30 MIN Normal [facility] Office Visiton 08-30-2023 Follow-up visit [id number] Angeles 1955 [facility] Provider Department [place] 08/30/2023 29929-BWRYIKWUXMARTIN SPENCER CARD [facility] Family History Problem Relation Age of Onset Colon cancer Brother Family Status - Relation Status Age at Brother Level of Service:01130 ND OFFICE/OUTPATIENT ESTABLISHED MOD MDM 30-39 MIN Normal [facility] Office Visiton 03-22-2023 Follow-up visit [id number] Angeles 1955 M Date Provider Department Center 03/22/2023 3848-TACHO HOLLAND CARD Esha Champion Family History Problem Relation Age of Onset Colon cancer Brother Family Status - Relation Status Age at Brother Level of Service:71402 ND OFFICE/OUTPATIENT ESTABLISHED MOD MDM 30-39 MIN Reason for Visit and Comments: Follow-up [[id number]] - f/u echo Normal [facility] ECHOCARDIO M/2D COMPLETEon 0 03-01-2023 ECHOCARDIO M/2D COMPLETE Patient: GARRY STREETER Exam Date: 03/01/2023 : 1955 Gender:M Ordering : SARAH RAMIREZ Admission #: [id number] Family : WARREN JOYNER FLOOR ASSOCIATE-C Order #: [id number] CLICK HERE TO VIEW EXAM ECHOCARDIOGRAM REPORT [...] Baumann M.D. on 03/01/2023 at 09:[address] [facility] Office Visiton 02-03-2023 Follow-up visit [id number] Garry Streeter 1955 M Date Provider Department Center 02/03/2023 Sean-SARAH RAMIREZ CARD [facility] Family History Problem Relation Age of Onset Colon cancer Brother Family Status - Relation Status Age at Brother Level of Service:01863 ND OFFICE/OUTPATIENT ESTABLISHED MOD MDM 30-39 MIN Reason for Visit and Comments: Med Refill [[id number]] Atrial Fibrillation [80] Congestive Heart Failure [127] Normal [facility] BNPon 01-15-2023 Natriuretic peptide B (Bld) [Mass/Vol] 20.0 pg/mL Normal <=900.0 [facility] Comment on above: Performed By: #### B FLOOR ASSOCIATE, MG, CMP #### [facility] [address] [place] [address] Dr. Miah Veloz HEMOGRAM AND PLATELon 2022 Hematocrit (Bld) [Volume fraction] 41.3 % Critically low 42.0-54.0 [facility] Comment on above: Performed By: #### B FLOOR ASSOCIATE, CMP, HSTROPN #### [facility] [address] [address] [address] Miah Veloz Hemoglobin (Bld) [Mass/Vol] 14.2 g/dL Normal 14.0-18.0 [facility] Comment on above: Performed By: #### B FLOOR ASSOCIATE, CMP, HSTROPN #### [facility] [address] [address] [address] iMah Veloz MCH (RBC) [Entitic mass] 31.5 pg Normal 25.9-34.0 [facility] Comment on above: Performed By: #### B FLOOR ASSOCIATE, CMP, HSTROPN #### [facility] [address] [place] [address] Dr. Miah Veloz MCHC (RBC) [Mass/Vol] 34.4 g/dL Normal 29.9-35.2 [facility] Comment on above: Performed By: #### B FLOOR ASSOCIATE, CMP, HSTROPN #### [facility] [address] [place] [address] Dr. Miah Veloz MCV (RBC) [Entitic vol] 91.6 fL Normal 80.0-94.0 [facility] Comment on above: Performed By: #### B FLOOR ASSOCIATE, CMP, HSTROPN #### [facility] [address] [place] [address] Dr. Miah Veloz PLT 173 103/ul Normal 150-450 [facility] Comment on above: Performed By: #### B FLOOR ASSOCIATE, CMP, HSTROPN #### [facility] [address] [place] [address] Dr. Miah Veloz RBC 4.51 106/ul Critically low 4.70-6.10 [facility] Comment on above: Performed By: #### B FLOOR ASSOCIATE, CMP, HSTROPN #### [facility] [address] [place] [address] Dr. Miah Veloz WBC 5.8 103/ul Normal 4.0-11.0 [facility] Comment on above: Performed By: #### B FLOOR ASSOCIATE, CMP, HSTROPN #### [facility] [address] [place] [address] Dr. Miah Veloz MAGNESIUMon 01-15-2023 Magnesium [Mass/Vol] 1.9 mg/dL Normal 1.8-2.4 [facility] Comment on above: Performed By: #### B FLOOR ASSOCIATE, MG, CMP #### [facility] [address] [place] [address] Dr. Miah Veloz PROF 14(COMP METB)on 023 Albumin [Mass/Vol] 3.8 g/dL Normal 3.4-5.0 [facility] Comment on above: Performed By: #### B FLOOR ASSOCIATE, MG, CMP #### [facility] [address] [place] [address] Dr. Miah Veloz Albumin/Globulin [Mass ratio] 0.9 {ratio} Normal [facility] Comment on above: Performed By: #### B FLOOR ASSOCIATE, MG, CMP #### [facility] [address] [address] [address] Miah Veloz ALP [Catalytic activity/Vol] 86 U/L Normal 46-116 [facility] Comment on above: Performed By: #### B FLOOR ASSOCIATE, MG, CMP #### [facility] [address] [address] [address] Miah Veloz ALT [Catalytic activity/Vol] 26 U/L Normal 16-63 [facility] Comment on above: Performed By: #### B FLOOR ASSOCIATE, MG, CMP #### [facility] [address] [address] [address] Miah Veloz Anion gap [Moles/Vol] 11.3 mmol/L Normal [facility] Comment on above: Performed By: #### B FLOOR ASSOCIATE, MG, CMP #### [facility] [address] [place] [address] Dr. Miah Veloz AST [Catalytic activity/Vol] 18 U/L Normal 15-37 [facility] Comment on above: Performed By: #### B FLOOR ASSOCIATE, MG, CMP #### [facility] [address] [address] [address] Miah Veloz Bilirubin [Mass/Vol] 0.6 mg/dL Normal 0.2-1.0 [facility] Comment on above: Performed By: #### B FLOOR ASSOCIATE, MG, CMP #### [facility] [address] [place] [address] Dr. Miah Veloz Calcium [Mass/Vol] 9.4 mg/dL Normal 8.5-10.1 [facility] Comment on above: Performed By: #### B FLOOR ASSOCIATE, MG, CMP #### [facility] [address] [place] [address] Dr. Miah Veloz Chloride [Moles/Vol] 105 mmol/L Normal 98-107 [facility] Comment on above: Performed By: #### B FLOOR ASSOCIATE, MG, CMP #### [facility] [address] [address] [address] Miah Veloz CO2 [Moles/Vol] 30.2 mmol/L Normal 21.0-32.0 [facility] Comment on above: Performed By: #### B FLOOR ASSOCIATE, MG, CMP #### [facility] [address] [address] [address] Miah Veloz Creatinine [Mass/Vol] 0.88 mg/dL Normal 0.70-1.30 [facility] Comment on above: Performed By: #### B FLOOR ASSOCIATE, MG, CMP #### [facility] [address] [address] [address] Miah Veloz EGFR-AF SOMALI >60 Normal >=60 [facility] Comment on above: Performed By: #### B FLOOR ASSOCIATE, MG, CMP #### [facility] [address] [address] [address] Miah Veloz EGFR-NON AF SOMALI >60 Normal >=60 [facility] Comment on above: Performed By: #### B FLOOR ASSOCIATE, MG, CMP #### [facility] [address] [address] [address] Miah Veloz Globulin (S) [Mass/Vol] 4.1 g/dL Normal [facility] Comment on above: Performed By: #### B FLOOR ASSOCIATE, MG, CMP #### [facility] [address] [address] [address] Miah Veloz Glucose [Mass/Vol] 98 mg/dL Normal 74-106 [facility] Comment on above: Performed By: #### B FLOOR ASSOCIATE, MG, CMP #### [facility] [address] [address] [address] Miah Veloz Potassium [Moles/Vol] 4.5 mmol/L Normal 3.5-5.1 [facility] Comment on above: Performed By: #### B FLOOR ASSOCIATE, MG, CMP #### [facility] [address] [address] [address] Miah Veloz Protein [Mass/Vol] 7.9 g/dL Normal 6.4-8.2 [facility] Comment on above: Performed By: #### B FLOOR ASSOCIATE, MG, CMP #### [facility] [address] [address] [address] Miah Veloz Sodium [Moles/Vol] 142 mmol/L Normal 136-145 [facility] Comment on above: Performed By: #### B FLOOR ASSOCIATE, MG, CMP #### [facility] [address] [address] [address] Miah Veloz Urea nitrogen [Mass/Vol] 15.0 mg/dL Normal 7.0-18.0 [facility] Comment on above: Performed By: #### B FLOOR ASSOCIATE, MG, CMP #### [facility] [address] [address] [address] Miah Veloz Urea nitrogen/Creatinine [Mass ratio] 17.0 mg/mg Normal [facility] Comment on above: Performed By: #### B FLOOR ASSOCIATE, MG, CMP #### [facility] [id number] Miah Veloz XR CHEST 2 Von [...] by: LUZMA PHAM Date: 2023-01-15 12:[address] [facility] SURGICAL PATH REPORTon 10-29 SURGICAL PATH REPORT [facility] Department of Pathology [address] [place] [id number] [phone] Name: GARRY STREETER : 1955 [facility] [id number] Number: Gender Male Locatio [place]IO [place] : n: Admit 67 years Attending TAVIA [place] Age: Provider: Ordering TAVIA [place] Provider: Consulti Surgical Pathology Report ng: ACCESSION: COLLECTED DATE/TIME: RECEIVED DATE/TIME: PATHOLOGIST: [id number] 10/28/2022 11:24 EST 10/28/2022 11:24 EST MATT PELAEZ MD Final Diagnosis Report for [facility] [place], [place] (A) SIGMOID POLYP AT 40 CM: [...] ____ Print 10/29/2022 14:17 EST Number: Date/Time: [facility] Department of Pathology [address] [place], [place] [phone] Name: GARRY STREETER : 1955 [facility] [id number] Number: Gender Male [facility] : n: Admit 67 years Attending TAVIA [place] Age: Provider: Ordering TAVIA [place] Provider: Consulti Surgical Pathology Report ng: ACCESSION: COLLECTED DATE/TIME: RECEIVED DATE/TIME: PATHOLOGIST: [id number] 10/28/2022 11:24 EST 10/28/2022 11:24 EST MATT [...] MP/ald 10/28/2022 Tissue pathology report for: [facility], [address] [place] [address]; PATHOLOGY SERVICES PROVIDED BY [employer] , [facility] (CLIA #[id number]) in cooperation with [facility] at [address] [place] [address] ( CLIA #[id number]) Codes CPT CODE: 97463D4 ____ Print 10/29/2022 14:17 EST Number: Date/Time: Normal [facility] Comment on above: Performed By: #### 9 [id number] #### [facility] Laboratory Services [address] [place] [address] Health Safety Specialist: Matt Pelaez MD Covid-19 PCR (CVDTB)on SARS-CoV-2 (COVID-19) RNA GÓMEZ+probe Ql (Unsp spec) Not detected Normal NOT DETECTED [facility] Comment on above: Result Comment: This test is not yet approved or cleared by the [place] FDA. When there are no FDA-approved or cleared tests available, and other criteria are met, FDA can make tests available under an emergency access mechanism called an Emergency Use Authorization (EUA). The EUA for this test is supported by the [place] of Health and Human Service's (HHS's) declaration [...] SARS-CoV-2. Performed By: #### C VDTBH #### [facility] [address] [place] [address] Dr. Miah Veloz CBC AUTO DIFFon 08-10-2022 BASO # 0.1 103/ul Normal 0.0-0.1 [facility] Comment on above: Performed By: #### B FLOOR ASSOCIATE, CMP, HSTROPN #### [facility] [address] [place] [address] Dr. Miah Veloz Basophils/100 WBC (Bld) 0.7 % Normal 0.2-2.0 [facility] Comment on above: Performed By: #### B FLOOR ASSOCIATE, CMP, HSTROPN #### [facility] [address] [place] [address] Dr. Miah Veloz EO # 0.4 103/ul Normal 0.0-0.7 [facility] Comment on above: Performed By: #### B FLOOR ASSOCIATE, CMP, HSTROPN #### [facility] [address] [place] [address] Dr. Miah Veloz Eosinophils/100 WBC (Bld) 4.1 % Normal 0.9-7.0 [facility] Comment on above: Performed By: #### B FLOOR ASSOCIATE, CMP, HSTROPN #### [facility] [address] [place] [address] Dr. Miah Veloz Erythrocyte distribution width (RBC) [Ratio] 16.0 % Critically high 11.0-15.0 [facility] Comment on above: Performed By: #### B FLOOR ASSOCIATE, CMP, HSTROPN #### [facility] [address] [place] [address] Dr. Miah Veloz Hematocrit (Bld) [Volume fraction] 41.2 % Critically low 42.0-54.0 [facility] Comment on above: Performed By: #### B FLOOR ASSOCIATE, CMP, HSTROPN #### [facility] [address] [place] [address] Dr. Miah Veloz Hemoglobin (Bld) [Mass/Vol] 14.1 g/dL Normal 14.0-18.0 [facility] Comment on above: Performed By: #### B FLOOR ASSOCIATE, CMP, HSTROPN #### [facility] [address] [place] [address] Dr. Miah Veloz IG # 0.03 10e3/ul Normal 0.00-0.03 [facility] Comment on above: Performed By: #### B FLOOR ASSOCIATE, CMP, HSTROPN #### [facility] [address] [place] [address] Dr. Miah Veloz IG % 0.3 % Normal 0.0-0.5 [facility] Comment on above: Performed By: #### B FLOOR ASSOCIATE, CMP, HSTROPN #### [facility] [address] [place] [address] Dr. Miah Veloz LYMPH # 2.8 103/ul Normal 1.2-3.8 [facility] Comment on above: Performed By: #### B FLOOR ASSOCIATE, CMP, HSTROPN #### [facility] [address] [place] [address] Dr. Miah Veloz Lymphocytes/100 WBC (Bld) 28.5 % Normal 20.5-60.0 [facility] Comment on above: Performed By: #### B FLOOR ASSOCIATE, CMP, HSTROPN #### [facility] [address] [place] [address] Dr. Miah Veloz MANUAL DIFF REQ NO Normal [facility] Comment on above: Performed By: #### B FLOOR ASSOCIATE, CMP, HSTROPN #### [facility] [address] [place] [address] Dr. Miah Veloz MCH (RBC) [Entitic mass] 32.4 pg Normal 25.9-34.0 [facility] Comment on above: Performed By: #### B FLOOR ASSOCIATE, CMP, HSTROPN #### [facility] [address] [place] [address] Dr. Miah Veloz MCHC (RBC) [Mass/Vol] 34.2 g/dL Normal 29.9-35.2 [facility] Comment on above: Performed By: #### B FLOOR ASSOCIATE, CMP, HSTROPN #### [facility] [address] [place] [address] Dr. Miah Veloz MCV (RBC) [Entitic vol] 94.7 fL Critically high 80.0-94.0 [facility] Comment on above: Performed By: #### B FLOOR ASSOCIATE, CMP, HSTROPN #### [facility] [address] [place] [address] Dr. Miah Veloz MONO # 0.8 103/ul Normal 0.3-0.8 [facility] Comment on above: Performed By: #### B FLOOR ASSOCIATE, CMP, HSTROPN #### [facility] [address] [place] [address] Dr. Miah Veloz Monocytes/100 WBC (Bld) 7.6 % Normal 1.7-12.0 [facility] Comment on above: Performed By: #### B FLOOR ASSOCIATE, CMP, HSTROPN #### [facility] [address] [place] [address] Dr. Miah Veloz NEUT # 5.8 103/ul Normal 1.4-6.5 [facility] Comment on above: Performed By: #### B FLOOR ASSOCIATE, CMP, HSTROPN #### [facility] [address] [place] [address] Dr. Miah Veloz Neutrophils/100 WBC (Bld) 58.8 % Normal 43.0-75.0 [facility] Comment on above: Performed By: #### B FLOOR ASSOCIATE, CMP, HSTROPN #### [facility] [address] [place] [address] Dr. Miah Veloz Platelet mean volume (Bld) [Entitic vol] 10.3 fL Normal 9.5-13.5 [facility] Comment on above: Performed By: #### B FLOOR ASSOCIATE, CMP, HSTROPN #### [facility] [address] [address] [address] Miah Veloz PLT 184 103/ul Normal 150-450 [facility] Comment on above: Performed By: #### B FLOOR ASSOCIATE, CMP, HSTROPN #### [facility] [address] [address] [address] Miah Veloz RBC 4.35 106/ul Critically low 4.70-6.10 [facility] Comment on above: Performed By: #### B FLOOR ASSOCIATE, CMP, HSTROPN #### [facility] [address] [place] [address] Dr. Miah Veloz WBC 9.9 103/ul Normal 4.0-11.0 [facility] Comment on above: Performed By: #### B FLOOR ASSOCIATE, CMP, HSTROPN #### [facility] [address] [place] [address] Dr. Miah Veloz PROF CHEM 8 (BAS METB)on Anion gap [Moles/Vol] 13.2 mmol/L Normal [facility] Comment on above: Performed By: #### B FLOOR ASSOCIATE, CMP, HSTROPN #### [facility] [address] [place] [address] Dr. Miah Veloz Calcium [Mass/Vol] 8.8 mg/dL Normal 8.5-10.1 [facility] Comment on above: Performed By: #### B FLOOR ASSOCIATE, CMP, HSTROPN #### [facility] [address] [place] [address] Dr. Miah Veloz Chloride [Moles/Vol] 107 mmol/L Normal 98-107 [facility] Comment on above: Performed By: #### B FLOOR ASSOCIATE, CMP, HSTROPN #### [facility] [address] [place] [address] Dr. Miah Veloz CO2 [Moles/Vol] 25.5 mmol/L Normal 21.0-32.0 [facility] Comment on above: Performed By: #### B FLOOR ASSOCIATE, CMP, HSTROPN #### [facility] [address] [address] [address] Miah Veloz Creatinine [Mass/Vol] 1.37 mg/dL Critically high 0.70-1.30 [facility] Comment on above: Performed By: #### B FLOOR ASSOCIATE, CMP, HSTROPN #### [facility] [address] [place] [address] Dr. Miah Veloz EGFR-AF SOMALI >60 Normal >=[address] [facility] Comment on above: Performed By: #### B FLOOR ASSOCIATE, CMP, HSTROPN #### [facility] [address] [place] [address] Dr. Miah Veloz EGFR-NON AF SOMALI 52 mL/min/1.73m2 Critically low >=60 [facility] Comment on above: Performed By: #### B FLOOR ASSOCIATE, CMP, HSTROPN #### [facility] [address] [place] [address] Dr. Miah Veloz Glucose [Mass/Vol] 103 mg/dL Normal 74-106 [facility] Comment on above: Performed By: #### B FLOOR ASSOCIATE, CMP, HSTROPN #### [facility] [address] [address] [address] Miah Veloz Potassium [Moles/Vol] 4.7 mmol/L Normal 3.5-5.1 [facility] Comment on above: Performed By: #### B FLOOR ASSOCIATE, CMP, HSTROPN #### [facility] [address] [place] [address] Dr. Miah Veloz Sodium [Moles/Vol] 141 mmol/L Normal 136-145 [facility] Comment on above: Performed By: #### B FLOOR ASSOCIATE, CMP, HSTROPN #### [facility] [address] [address] [address] Miah Veloz Urea nitrogen [Mass/Vol] 32.0 mg/dL Critically high 7.0-18.0 [facility] Comment on above: Performed By: #### B FLOOR ASSOCIATE, CMP, HSTROPN #### [facility] [address], [place] [address] Dr. Miah Veloz Urea nitrogen/Creatinine [Mass ratio] 23.4 mg/mg Normal [facility] Comment on above: Performed By: #### B FLOOR ASSOCIATE, CMP, HSTROPN #### [facility] [address], [place] [address] Dr. Miah Veloz ECHOCARDIO M/2D COMPLETEon 0 08-05-2022 ECHOCARDIO M/2D COMPLETE Patient: GARRY STREETER Exam Date: 08/05/2022 : 1955 Gender:M Ordering : TACHO HOLLAND Admission #: [id number] Family : Order #: [id number] CLICK HERE TO VIEW EXAM ECHOCARDIOGRAM REPORT [...] M.D. on 08/05/2022 at 14:32 Normal [facility] PROF 14(COMP METB)on 022 Albumin [Mass/Vol] 3.4 g/dL Normal 3.4-5.0 [facility] Comment on above: Performed By: #### B FLOOR ASSOCIATE, CMP, HSTROPN #### [facility] [address] [place] [address] Dr. Miah Veloz Albumin/Globulin [Mass ratio] 0.9 {ratio} Normal [facility] Comment on above: Performed By: #### B FLOOR ASSOCIATE, CMP, HSTROPN #### [facility] [address] [address] [address] Miah Veloz ALP [Catalytic activity/Vol] 73 U/L Normal 46-116 [facility] Comment on above: Performed By: #### B FLOOR ASSOCIATE, CMP, HSTROPN #### [facility] [address] [address] [address] Miah Veloz ALT [Catalytic activity/Vol] 31 U/L Normal 16-63 [facility] Comment on above: Performed By: #### B FLOOR ASSOCIATE, CMP, HSTROPN #### [facility] [address] [address] [address] Miah Veloz Anion gap [Moles/Vol] 13.6 mmol/L Normal [facility] Comment on above: Performed By: #### B FLOOR ASSOCIATE, CMP, HSTROPN #### [facility] [address] [address] [address] Miah Veloz AST [Catalytic activity/Vol] 14 U/L Critically low 15-37 [facility] Comment on above: Performed By: #### B FLOOR ASSOCIATE, CMP, HSTROPN #### [facility] [address] [address] [address] Miah Veloz Bilirubin [Mass/Vol] 0.6 mg/dL Normal 0.2-1.0 [facility] Comment on above: Performed By: #### B FLOOR ASSOCIATE, CMP, HSTROPN #### [facility] [address] [address] [address] Miah Veloz Calcium [Mass/Vol] 8.8 mg/dL Normal 8.5-10.1 [facility] Comment on above: Performed By: #### B FLOOR ASSOCIATE, CMP, HSTROPN #### [facility] [address] [address] [address] Miah Veloz Chloride [Moles/Vol] 105 mmol/L Normal 98-107 [facility] Comment on above: Performed By: #### B FLOOR ASSOCIATE, CMP, HSTROPN #### [facility] [address] [place] [address] Dr. Miah Veloz CO2 [Moles/Vol] 27.7 mmol/L Normal 21.0-32.[address] [facility] Comment on above: Performed By: #### B FLOOR ASSOCIATE, CMP, HSTROPN #### [facility] [address] [address] [address] Miah Veloz Creatinine [Mass/Vol] 1.17 mg/dL Normal 0.70-1.30 [facility] Comment on above: Performed By: #### B FLOOR ASSOCIATE, CMP, HSTROPN #### [facility] [address] [address] [address] Miah Veloz EGFR-AF SOMALI >60 Normal >=[address] [facility] Comment on above: Performed By: #### B FLOOR ASSOCIATE, CMP, HSTROPN #### [facility] [address] [address] [address] Miah Veloz EGFR-NON AF SOMALI >60 Normal >=60 [facility] Comment on above: Performed By: #### B FLOOR ASSOCIATE, CMP, HSTROPN #### [facility] [address] [address] [address] Miah Veloz Globulin (S) [Mass/Vol] 3.9 g/dL Normal [facility] Comment on above: Performed By: #### B FLOOR ASSOCIATE, CMP, HSTROPN #### [facility] [address] [place] [address] Dr. Miah Veloz Glucose [Mass/Vol] 138 mg/dL Critically high 74-106 [facility] Comment on above: Performed By: #### B FLOOR ASSOCIATE, CMP, HSTROPN #### [facility] [address] [place] [address] Dr. Miah Veloz Potassium [Moles/Vol] 4.3 mmol/L Normal 3.5-5.1 [facility] Comment on above: Performed By: #### B FLOOR ASSOCIATE, CMP, HSTROPN #### [facility] [address] [place] [address] Dr. Miah Veloz Protein [Mass/Vol] 7.3 g/dL Normal 6.4-8.2 [facility] Comment on above: Performed By: #### B FLOOR ASSOCIATE, CMP, HSTROPN #### [facility] [address] [place] [address] Dr. Miah Veloz Sodium [Moles/Vol] 142 mmol/L Normal 136-145 [facility] Comment on above: Performed By: #### B FLOOR ASSOCIATE, CMP, HSTROPN #### [facility] [address] [place] [address] Dr. Miah Veloz Urea nitrogen [Mass/Vol] 25.0 mg/dL Critically high 7.0-18.0 [facility] Comment on above: Performed By: #### B FLOOR ASSOCIATE, CMP, HSTROPN #### [facility] [address] [address] [address] Maih Veloz Urea nitrogen/Creatinine [Mass ratio] 21.4 mg/mg Normal [facility] Comment on above: Performed By: #### B FLOOR ASSOCIATE, CMP, HSTROPN #### [facility] [address] [address] [address] Miah Veloz US BRANDO DOP LEG [...] MURPHY GRIFFIN Date: 2022-05-14 16:51 Normal [facility] CBC AUTO DIFFon 04-28-2022 BASO # 0.1 103/ul Normal 0.0-0.1 [facility] Comment on above: Performed By: #### C BC #### [facility] [address] [address] [address] Miah Veloz Basophils/100 WBC (Bld) 0.7 % Normal 0.2-2.0 [facility] Comment on above: Performed By: #### C BC #### [facility] [address] [address] [address] Miah Veloz EO # 0.2 103/ul Normal 0.0-0.7 [facility] Comment on above: Performed By: #### C BC #### [facility] [address] [address] [address] Miah Veloz Eosinophils/100 WBC (Bld) 2.9 % Normal 0.9-7.0 [facility] Comment on above: Performed By: #### C BC #### [facility] [address] [place] [address] Dr. Miah Veloz Erythrocyte distribution width (RBC) [Ratio] 13.2 % Normal 11.0-15.0 [facility] Comment on above: Performed By: #### C BC #### [facility] [address] [place] [address] Dr. Miah Veloz Hematocrit (Bld) [Volume fraction] 36.9 % Critically low 42.0-54.0 [facility] Comment on above: Performed By: #### C BC #### [facility] [address] [place] [address] Dr. Miah Veloz Hemoglobin (Bld) [Mass/Vol] 12.4 g/dL Critically low 14.0-18.0 [facility] Comment on above: Performed By: #### C BC #### [facility] [address] [place] [address] Dr. Miah Veloz IG # 0.03 10e3/ul Normal 0.00-0.03 [facility] Comment on above: Performed By: #### C BC #### [facility] [address] [place] [address] Dr. Miah Veloz IG % 0.4 % Normal 0.0-0.5 [facility] Comment on above: Performed By: #### C BC #### [facility] [address] [place] [address] Dr. Miah Veloz LYMPH # 1.8 103/ul Normal 1.2-3.8 [facility] Comment on above: Performed By: #### C BC #### [facility] [address] [place] [address] Dr. Miah Veloz Lymphocytes/100 WBC (Bld) 23.0 % Normal 20.5-60.0 [facility] Comment on above: Performed By: #### C BC #### [facility] [address] [place] [address] Dr. Miah Veloz MANUAL DIFF REQ NO Normal [facility] Comment on above: Performed By: #### C BC #### [facility] [address] [place] [address] Dr. Miah Veloz MCH (RBC) [Entitic mass] 32.3 pg Normal 25.9-34.0 [facility] Comment on above: Performed By: #### C BC #### [facility] [address] [place] [address] Dr. Miah Veloz MCHC (RBC) [Mass/Vol] 33.6 g/dL Normal 29.9-35.2 [facility] Comment on above: Performed By: #### C BC #### [facility] [address] [place] [address] Dr. Miah Veloz MCV (RBC) [Entitic vol] 96.1 fL Critically high 80.0-94.0 [facility] Comment on above: Performed By: #### C BC #### [facility] [address] [place] [address] Dr. Miah Veloz MONO # 0.8 103/ul Normal 0.3-0.8 [facility] Comment on above: Performed By: #### C BC #### [facility] [address] [place] [address] Dr. Miah Veloz Monocytes/100 WBC (Bld) 10.2 % Normal 1.7-12.0 [facility] Comment on above: Performed By: #### C BC #### [facility] [address] [place] [address] Dr. Miah Veloz NEUT # 4.8 103/ul Normal 1.4-6.5 [facility] Comment on above: Performed By: #### C BC #### [facility] [address] [place] [address] Dr. Miah Veloz Neutrophils/100 WBC (Bld) 62.8 % Normal 43.0-75.0 [facility] Comment on above: Performed By: #### C BC #### [facility] [address] [place] [address] Dr. Miah Veloz Platelet mean volume (Bld) [Entitic vol] 10.2 fL Normal 9.5-13.5 [facility] Comment on above: Performed By: #### C BC #### [facility] [address] [place] [address] Dr. Miah Veloz PLT 224 103/ul Normal 150-450 [facility] Comment on above: Performed By: #### C BC #### [facility] [address] [place] [address] Dr. Miah Veloz RBC 3.84 106/ul Critically low 4.70-6.10 [facility] Comment on above: Performed By: #### C BC #### [facility] [address] [place] [address] Dr. Miah Veloz WBC 7.7 103/ul Normal 4.0-11.0 [facility] Comment on above: Performed By: #### C BC #### [facility] [address] [place] [address] Dr. Miah Veloz PROF CHEM 8 (BAS METB)on Anion gap [Moles/Vol] 14.4 mmol/L Normal [facility] Comment on above: Performed By: #### B FLOOR ASSOCIATE, CMP, HSTROPN #### [facility] [address] [place] [address] Dr. Miah Veloz Calcium [Mass/Vol] 8.3 mg/dL Critically low 8.5-10.1 [facility] Comment on above: Performed By: #### B FLOOR ASSOCIATE, CMP, HSTROPN #### [facility] [address] [place] [address] Dr. Miah Veloz Chloride [Moles/Vol] 106 mmol/L Normal 98-107 [facility] Comment on above: Performed By: #### B FLOOR ASSOCIATE, CMP, HSTROPN #### [facility] [address] [place] [address] Dr. Miah Veloz CO2 [Moles/Vol] 27.0 mmol/L Normal 21.0-32.0 [facility] Comment on above: Performed By: #### B FLOOR ASSOCIATE, CMP, HSTROPN #### [facility] [address] [place] [address] Dr. Miah Veloz Creatinine [Mass/Vol] 1.12 mg/dL Normal 0.70-1.30 [facility] Comment on above: Performed By: #### B FLOOR ASSOCIATE, CMP, HSTROPN #### [facility] [address] [place] [address] Dr. Miah Veloz EGFR-AF SOMALI >60 Normal >=60 [facility] Comment on above: Performed By: #### B FLOOR ASSOCIATE, CMP, HSTROPN #### [facility] [address] [place] [address] Dr. Miah Veloz EGFR-NON AF SOMALI >60 Normal >=60 [facility] Comment on above: Performed By: #### B FLOOR ASSOCIATE, CMP, HSTROPN #### [facility] [address] [place] [address] Dr. Miah Veloz Glucose [Mass/Vol] 103 mg/dL Normal 74-106 [facility] Comment on above: Performed By: #### B FLOOR ASSOCIATE, CMP, HSTROPN #### [facility] [address] [place] [address] Dr. Miah Veloz Potassium [Moles/Vol] 3.4 mmol/L Critically low 3.5-5.1 [facility] Comment on above: Performed By: #### B FLOOR ASSOCIATE, CMP, HSTROPN #### [facility] [address] [place] [address] Dr. Miah Veloz Sodium [Moles/Vol] 144 mmol/L Normal 136-145 [facility] Comment on above: Performed By: #### B FLOOR ASSOCIATE, CMP, HSTROPN #### [facility] [address] [place] [address] Dr. Miah Veloz Urea nitrogen [Mass/Vol] 21.0 mg/dL Critically high 7.0-18.0 [facility] Comment on above: Performed By: #### B FLOOR ASSOCIATE, CMP, HSTROPN #### [facility] [address] [place] [address] Dr. Miah Veloz Urea nitrogen/Creatinine [Mass ratio] 18.8 mg/mg Normal [facility] Comment on above: Performed By: #### B FLOOR ASSOCIATE, CMP, HSTROPN #### [facility] [address] [place] [address] Dr. Miah Veloz CBC AUTO DIFFon 04-27-2022 BASO # 0.0 103/ul Normal 0.0-0.1 [facility] Comment on above: Performed By: #### B FLOOR ASSOCIATE, CMP, HSTROPN #### [facility] [address] [place] [address] Dr. Miah Veloz Basophils/100 WBC (Bld) 0.4 % Normal 0.2-2.0 [facility] Comment on above: Performed By: #### B FLOOR ASSOCIATE, CMP, HSTROPN #### [facility] [address] [place] [address] Dr. Miah Veloz EO # 0.2 103/ul Normal 0.0-0.7 [facility] Comment on above: Performed By: #### B FLOOR ASSOCIATE, CMP, HSTROPN #### [facility] [address] [place] [address] Dr. Miah Veloz Eosinophils/100 WBC (Bld) 3.2 % Normal 0.9-7.0 [facility] Comment on above: Performed By: #### B FLOOR ASSOCIATE, CMP, HSTROPN #### [facility] [address] [place] [address] Dr. Miah Veloz Erythrocyte distribution width (RBC) [Ratio] 13.6 % Normal 11.0-15.0 [facility] Comment on above: Performed By: #### B FLOOR ASSOCIATE, CMP, HSTROPN #### [facility] [address] [place] [address] Dr. Miah Veloz Hematocrit (Bld) [Volume fraction] 36.7 % Critically low 42.0-54.0 [facility] Comment on above: Performed By: #### B FLOOR ASSOCIATE, CMP, HSTROPN #### [facility] [address] [place] [address] Dr. Miah Veloz Hemoglobin (Bld) [Mass/Vol] 12.0 g/dL Critically low 14.0-18.0 [facility] Comment on above: Performed By: #### B FLOOR ASSOCIATE, CMP, HSTROPN #### [facility] [address] [place] [address] Dr. Miah Veloz IG # 0.02 10e3/ul Normal 0.00-0.03 [facility] Comment on above: Performed By: #### B FLOOR ASSOCIATE, CMP, HSTROPN #### [facility] [address] [place] [address] Dr. Miah Veloz IG % 0.3 % Normal 0.0-0.5 [facility] Comment on above: Performed By: #### B FLOOR ASSOCIATE, CMP, HSTROPN #### [facility] [address] [place] [address] Dr. Miah Veloz LYMPH # 1.6 103/ul Normal 1.2-3.8 [facility] Comment on above: Performed By: #### B FLOOR ASSOCIATE, CMP, HSTROPN #### [facility] [address] [place] [address] Dr. Miah Veloz Lymphocytes/100 WBC (Bld) 22.2 % Normal 20.5-60.0 [facility] Comment on above: Performed By: #### B FLOOR ASSOCIATE, CMP, HSTROPN #### [facility] [address] [place] [address] Dr. Miah Veloz MANUAL DIFF REQ NO Normal [facility] Comment on above: Performed By: #### B FLOOR ASSOCIATE, CMP, HSTROPN #### [facility] [address] [place] [address] Dr. Miah Veloz MCH (RBC) [Entitic mass] 32.3 pg Normal 25.9-34.0 [facility] Comment on above: Performed By: #### B FLOOR ASSOCIATE, CMP, HSTROPN #### [facility] [address] [place] [address] Dr. Miah Veloz MCHC (RBC) [Mass/Vol] 32.7 g/dL Normal 29.9-35.2 [facility] Comment on above: Performed By: #### B FLOOR ASSOCIATE, CMP, HSTROPN #### [facility] [address] [place] [address] Dr. Miah Veloz MCV (RBC) [Entitic vol] 98.7 fL Critically high 80.0-94.0 [facility] Comment on above: Performed By: #### B FLOOR ASSOCIATE, CMP, HSTROPN #### [facility] [address] [place] [address] Dr. Miah Veloz MONO # 0.7 103/ul Normal 0.3-0.8 [facility] Comment on above: Performed By: #### B FLOOR ASSOCIATE, CMP, HSTROPN #### [facility] [address] [place] [address] Dr. Miah Veloz Monocytes/100 WBC (Bld) 9.1 % Normal 1.7-12.0 [facility] Comment on above: Performed By: #### B FLOOR ASSOCIATE, CMP, HSTROPN #### [facility] [address] [place] [address] Dr. Miah Veloz NEUT # 4.6 103/ul Normal 1.4-6.5 [facility] Comment on above: Performed By: #### B FLOOR ASSOCIATE, CMP, HSTROPN #### [facility] [address] [place] [address] Dr. Miah Veloz Neutrophils/100 WBC (Bld) 64.8 % Normal 43.0-75.0 [facility] Comment on above: Performed By: #### B FLOOR ASSOCIATE, CMP, HSTROPN #### [facility] [address] [place] [address] Dr. Miah Veloz Platelet mean volume (Bld) [Entitic vol] 10.2 fL Normal 9.5-13.5 [facility] Comment on above: Performed By: #### B FLOOR ASSOCIATE, CMP, HSTROPN #### [facility] [address] [place] [address] Dr. Miah Veloz PLT 200 103/ul Normal 150-450 [facility] Comment on above: Performed By: #### B FLOOR ASSOCIATE, CMP, HSTROPN #### [facility] [address] [place] [address] Dr. Miah Veloz RBC 3.72 106/ul Critically low 4.70-6.10 [facility] Comment on above: Performed By: #### B FLOOR ASSOCIATE, CMP, HSTROPN #### [facility] [address] [address] [address] Miah Veloz WBC 7.1 103/ul Normal 4.0-11.0 [facility] Comment on above: Performed By: #### B FLOOR ASSOCIATE, CMP, HSTROPN #### [facility] [address] [id number] Miah Veloz ECHOCARDIO M/2D COMPLETEon 0 04-27-2022 ECHOCARDIO M/2D COMPLETE Patient: GARRY STREETER Exam Date: 04/27/2022 : 1955 Gender:M Ordering : DR ANDREI ORONA . Admission #: [id number] Family : Order #: [id number] CLICK HERE TO VIEW EXAM ECHOCARDIOGRAM REPORT [...] Area(A4C): 22.40 cm2 Left Atrium Systolic Volume(A2C): 58266 mm3 Left Atrium Systolic Volume(A4C): 13141 mm3 Mitral Valve Mitral Valve E-Wave Peak [...] Palacios M.D. on 04/27/2022 at 16:58 Normal [facility] PROF CHEM 8 (BAS METB)on Anion gap [Moles/Vol] 13.3 mmol/L Normal [facility] Comment on above: Performed By: #### B MP #### [facility] [address] [place] [address] Dr. Miah Veloz Calcium [Mass/Vol] 8.2 mg/dL Critically low 8.5-10.1 [facility] Comment on above: Performed By: #### B MP #### [facility] [address] [place] [address] Dr. Miah Veloz Chloride [Moles/Vol] 107 mmol/L Normal 98-107 [facility] Comment on above: Performed By: #### B MP #### [facility] [address] [address] [address] Miah Veloz CO2 [Moles/Vol] 27.5 mmol/L Normal 21.0-32.0 [facility] Comment on above: Performed By: #### B MP #### [facility] [address] [address] [address] Miah Veloz Creatinine [Mass/Vol] 0.97 mg/dL Normal 0.70-1.30 [facility] Comment on above: Performed By: #### B MP #### [facility] [address] [address] [address] Miah Veloz EGFR-AF SOMALI >60 Normal >=[address] [facility] Comment on above: Performed By: #### B MP #### [facility] [address] [address] [address] Miah Veloz EGFR-NON AF SOMALI >60 Normal >=60 [facility] Comment on above: Performed By: #### B MP #### [facility] [address] [address] [address] Miah Veloz Glucose [Mass/Vol] 102 mg/dL Normal 74-106 [facility] Comment on above: Performed By: #### B MP #### [facility] [address] [address] [address] Miah Veloz Potassium [Moles/Vol] 3.8 mmol/L Normal 3.5-5.1 [facility] Comment on above: Performed By: #### B MP #### [facility] [address] [address] [address] Miah Veloz Sodium [Moles/Vol] 144 mmol/L Normal 136-145 [facility] Comment on above: Performed By: #### B MP #### [facility] [address] [address] [address] Miah Veloz Urea nitrogen [Mass/Vol] 17.0 mg/dL Normal 7.0-18.0 [facility] Comment on above: Performed By: #### B MP #### [facility] [address] [place] [address] Dr. Miah Veloz Urea nitrogen/Creatinine [Mass ratio] 17.5 mg/mg Normal [facility] Comment on above: Performed By: #### B MP #### [facility] [address] [place] [address] Dr. Miah Veloz BNPon 04-26-2022 Natriuretic peptide B (Bld) [Mass/Vol] 1105.0 pg/mL Critically high <=900.0 [facility] Comment on above: Performed By: #### B FLOOR ASSOCIATE, CMP, HSTROPN #### [facility] [address] [place] [address] Dr. Miah Veloz CBC AUTO DIFFon 04-26-2022 BASO # 0.0 103/ul Normal 0.0-0.1 [facility] Comment on above: Performed By: #### C BC #### [facility] [address] [place] [address] Dr. Miah Veloz Basophils/100 WBC (Bld) 0.6 % Normal 0.2-2.0 [facility] Comment on above: Performed By: #### C BC #### [facility] [address] [place] [address] Dr. Miah Veloz EO # 0.2 103/ul Normal 0.0-0.7 [facility] Comment on above: Performed By: #### C BC #### [facility] [address] [place] [address] Dr. Miah Veloz Eosinophils/100 WBC (Bld) 2.1 % Normal 0.9-7.0 [facility] Comment on above: Performed By: #### C BC #### [facility] [address] [place] [address] Dr. Miah Veloz Erythrocyte distribution width (RBC) [Ratio] 13.7 % Normal 11.0-15.0 [facility] Comment on above: Performed By: #### C BC #### [facility] [address] [place] [address] Dr. Miah Veloz Hematocrit (Bld) [Volume fraction] 39.3 % Critically low 42.0-54.0 [facility] Comment on above: Performed By: #### C BC #### [facility] [address] [place] [address] Dr. Miah Veloz Hemoglobin (Bld) [Mass/Vol] 13.0 g/dL Critically low 14.0-18.0 [facility] Comment on above: Performed By: #### C BC #### [facility] [address] [address] [address] Miah Veloz IG # 0.02 10e3/ul Normal 0.00-0.03 [facility] Comment on above: Performed By: #### C BC #### [facility] [address] [place] [address] Dr. Miah Veloz IG % 0.3 % Normal 0.0-0.5 [facility] Comment on above: Performed By: #### C BC #### [facility] [address] [place] [address] Dr. Miah Veloz LYMPH # 1.1 103/ul Critically low 1.2-3.8 [facility] Comment on above: Performed By: #### C BC #### [facility] [address] [place] [address] Dr. Miah Veloz Lymphocytes/100 WBC (Bld) 16.1 % Critically low 20.5-60.0 [facility] Comment on above: Performed By: #### C BC #### [facility] [address] [place] [address] Dr. Miah Veloz MANUAL DIFF REQ NO Normal [facility] Comment on above: Performed By: #### C BC #### [facility] [address] [address] [address] Miah Veloz MCH (RBC) [Entitic mass] 32.7 pg Normal 25.9-34.0 [facility] Comment on above: Performed By: #### C BC #### [facility] [address] [place] [address] Dr. Miah Veloz MCHC (RBC) [Mass/Vol] 33.1 g/dL Normal 29.9-35.2 [facility] Comment on above: Performed By: #### C BC #### [facility] [address] [place] [address] Dr. Miah Veloz MCV (RBC) [Entitic vol] 98.7 fL Critically high 80.0-94.0 [facility] Comment on above: Performed By: #### C BC #### [facility] [address] [place] [address] Dr. Miah Veloz MONO # 0.5 103/ul Normal 0.3-0.8 [facility] Comment on above: Performed By: #### C BC #### [facility] [address] [place] [address] Dr. Miah Veloz Monocytes/100 WBC (Bld) 7.6 % Normal 1.7-12.0 [facility] Comment on above: Performed By: #### C BC #### [facility] [address] [place] [address] Dr. Miah Veloz NEUT # 5.2 103/ul Normal 1.4-6.5 [facility] Comment on above: Performed By: #### C BC #### [facility] [address] [place] [address] Dr. Miah Veloz Neutrophils/100 WBC (Bld) 73.3 % Normal 43.0-75.0 [facility] Comment on above: Performed By: #### C BC #### [facility] [address] [place] [address] Dr. Miah Veloz Platelet mean volume (Bld) [Entitic vol] 10.7 fL Normal 9.5-13.5 [facility] Comment on above: Performed By: #### C BC #### [facility] [address] [place] [address] Dr. Miah Veloz PLT 200 103/ul Normal 150-450 [facility] Comment on above: Performed By: #### C BC #### [facility] [address] [place] [address] Dr. Miah Veloz RBC 3.98 106/ul Critically low 4.70-6.10 [facility] Comment on above: Performed By: #### C BC #### [facility] [address], [place] [address] Dr. Miah Veloz WBC 7.1 103/ul Normal 4.0-11.0 [facility] Comment on above: Performed By: #### C BC #### [facility] [address], [place] [address] Dr. Miah Veloz CTA CHEST WO W CONon 022 CTA CHEST WO W CON EXAMINATION: CTA CHEST WO W CON HISTORY: SHORTNESS OF BREATH [...] NICK CABRALES Date: 2022-04-26 10:50 Normal [facility] Covid-19 PCR (CVDTB)on SARS-CoV-2 (COVID-19) RNA GÓMEZ+probe Ql (Unsp spec) Not detected Normal NOT DETECTED [facility] Comment on above: Result Comment: When diagnostic [...] for this test is supported by the Emergency Dispatcher of Health and Human Service's declaration that [...] longer be used). Performed By: #### B FLOOR ASSOCIATE, CMP, HSTROPN #### [facility] [address] [place] [address] Dr. Miah Veloz PROF 14(COMP METB)on 022 Albumin [Mass/Vol] 3.1 g/dL Critically low 3.4-5.0 [facility] Comment on above: Performed By: #### B FLOOR ASSOCIATE, CMP, HSTROPN #### [facility] [address] [place] [address] Dr. Miah Veloz Albumin/Globulin [Mass ratio] 0.9 {ratio} Normal [facility] Comment on above: Performed By: #### B FLOOR ASSOCIATE, CMP, HSTROPN #### [facility] [address] [place] [address] Dr. Miah Veloz ALP [Catalytic activity/Vol] 54 U/L Normal 46-116 [facility] Comment on above: Performed By: #### B FLOOR ASSOCIATE, CMP, HSTROPN #### [facility] [address] [place] [address] Dr. Miah Veloz ALT [Catalytic activity/Vol] 63 U/L Normal 16-63 [facility] Comment on above: Performed By: #### B FLOOR ASSOCIATE, CMP, HSTROPN #### [facility] [address] [place] [address] Dr. Miah Veloz Anion gap [Moles/Vol] 13.9 mmol/L Normal [facility] Comment on above: Performed By: #### B FLOOR ASSOCIATE, CMP, HSTROPN #### [facility] [address] [address] [address] Miah Veloz AST [Catalytic activity/Vol] 32 U/L Normal 15-37 [facility] Comment on above: Performed By: #### B FLOOR ASSOCIATE, CMP, HSTROPN #### [facility] [address] [place] [address] Dr. Miah Veloz Calcium [Mass/Vol] 8.7 mg/dL Normal 8.5-10.1 [facility] Comment on above: Performed By: #### B FLOOR ASSOCIATE, CMP, HSTROPN #### [facility] [address] [place] [address] Dr. Miah Veloz Chloride [Moles/Vol] 108 mmol/L Critically high 98-107 [facility] Comment on above: Performed By: #### B FLOOR ASSOCIATE, CMP, HSTROPN #### [facility] [address] [place] [address] Dr. Miah Veloz CO2 [Moles/Vol] 24.3 mmol/L Normal 21.0-32.0 [facility] Comment on above: Performed By: #### B FLOOR ASSOCIATE, CMP, HSTROPN #### [facility] [address] [place] [address] Dr. Miah Veloz Creatinine [Mass/Vol] 0.90 mg/dL Normal 0.70-1.30 [facility] Comment on above: Performed By: #### B FLOOR ASSOCIATE, CMP, HSTROPN #### [facility] [address] [place] [address] Dr. Miah Veloz EGFR-AF SOMALI >60 Normal >=60 [facility] Comment on above: Performed By: #### B FLOOR ASSOCIATE, CMP, HSTROPN #### [facility] [address] [place] [address] Dr. Miah Veloz EGFR-NON AF SOMALI >60 Normal >=60 [facility] Comment on above: Performed By: #### B FLOOR ASSOCIATE, CMP, HSTROPN #### [facility] [address] [place] [address] Dr. Miah Veloz Globulin (S) [Mass/Vol] 3.6 g/dL Normal [facility] Comment on above: Performed By: #### B FLOOR ASSOCIATE, CMP, HSTROPN #### [facility] [address] [address] [address] Miah Veloz Glucose [Mass/Vol] 146 mg/dL Critically high 74-106 T [facility] Comment on above: Performed By: #### B FLOOR ASSOCIATE, CMP, HSTROPN #### [facility] [address] [address] [address] Miah Veloz Potassium [Moles/Vol] 4.2 mmol/L Normal 3.5-5.1 [facility] Comment on above: Performed By: #### B FLOOR ASSOCIATE, CMP, HSTROPN #### [facility] [address] [place] [address] Dr. Miah Veloz Protein [Mass/Vol] 6.7 g/dL Normal 6.4-8.2 [facility] Comment on above: Performed By: #### B FLOOR ASSOCIATE, CMP, HSTROPN #### [facility] [address] [place] [address] Dr. Miah Veloz Sodium [Moles/Vol] 142 mmol/L Normal 136-145 [facility] Comment on above: Performed By: #### B FLOOR ASSOCIATE, CMP, HSTROPN #### [facility] [address] [place] [address] Dr. Miah Veloz Urea nitrogen [Mass/Vol] 19.0 mg/dL Critically high 7.0-18.0 [facility] Comment on above: Performed By: #### B FLOOR ASSOCIATE, CMP, HSTROPN #### [facility] [address] [address] [address] Miah Veloz Urea nitrogen/Creatinine [Mass ratio] 21.1 mg/mg Normal [facility] Comment on above: Performed By: #### B FLOOR ASSOCIATE, CMP, HSTROPN #### [facility] [address] [place] [address] Dr. Miah Veloz PROTIMEon 04-26-2022 INR Coag (PPP) [Relative time] 1.20 {INR} Normal [facility] Comment on above: Performed By: #### B FLOOR ASSOCIATE, CMP, HSTROPN #### [facility] [address] [place] [address] Dr. Miah Veloz INR GUIDELINES SEE BELOW Normal [facility] Comment on above: Result Comment: JENNIFER RED INR: 2.0 - 3.0 CONDITIONS NOT LISTED BELOW 2.5 - 3.5 FOR PROSTHETIC HEART VALVE REPLACEMENT 2.5 - 3.5 RECURRENT THROMBOSIS Performed By: #### B FLOOR ASSOCIATE, CMP, HSTROPN #### [facility] [address] [address] [address] Miah Veloz PT Coag (PPP) [Time] 12.8 s Critically high 9.0-11.6 [facility] Comment on above: Performed By: #### B FLOOR ASSOCIATE, CMP, HSTROPN #### [facility] [address] [place] [address] Dr. Miah Veloz PTTon 04-26-2022 aPTT Coag (Bld) [Time] 28.5 s Normal 22.3-36.2 [facility] Comment on above: Performed By: #### B FLOOR ASSOCIATE, CMP, HSTROPN #### [facility] [address] [place] [address] Dr. Miah Veloz TROPONIN, HIGH SENSITIVITYon 04-26-2022 HSTROP 24.7 pg/mL Normal 4.0-76.1 [facility] Comment on above: Result Comment: CUT- OFF POINTS HAVE BEEN ESTABLISHED BASED ON THE FOURTH UNIVERSAL DEFINITIONS OF MYOCARDIAL INFARCTION. THE UPPER REFERENCE LIMIT (URL) OF TROPONIN, DEFINED THE 99TH PERCENTILE OF cTnI DISTRIBUTION IN A REFERENCE POPULATION, HAS BEEN CONFIRMED THE DECISION THRESHOLD FOR MS DIAGNOSIS. Performed By: #### B FLOOR ASSOCIATE, CMP, HSTROPN #### [facility] [address] [place] [address] Dr. Miah Veloz Encounters Encounter Date Encounter Type Care Provider Facility Start: 12-07-2023 End: 12-07-2023 ambulatory [facility] Start: 10-22-2023 End: 10-22-2023 ambulatory MEET [facility] Start: 08-30-2023 End: 08-30-2023 ambulatory MARTIN ADKINSLISET [facility] Start: 03-22-2023 End: 03-22-2023 ambulatory TACHO SHAYBARBARA [facility] Start: 03-01-2023 End: 03-02-2023 ambulatory SARAH JAMES Facility:[facility] Start: 02-03-2023 End: 02-03-2023 ambulatory SARAH DEL CASTILLOS [facility] Start: 01-15-2023 End: 01-16-2023 ambulatory LUZMA PHAM Facility:[facility] Start: 10-31-2022 Encounter for preprocedural laboratory examination DR TAVIA [place] . [facility] Start: 10-28-2022 End: 10-29-2022 ambulatory TAVIA [place] Facility:[facility] Start: 10-28-2022 End: 10-28-[address] TAVIA [place] . Facility:[facility] Start: 10-24-2022 End: 10-25-[address] TAVIA [place] . Facility:[facility] Start: 10-24-2022 End: 10-25-2022 Encounter for preprocedural laboratory examination DR TAVIA [place] . Facility:[facility] Start: 08-12-2022 Encounter for other preprocedural examination TACHO HOLLAND [facility] Start: 08-10-2022 End: 08-11-2022 ambulatory TACHO HOLLAND Facility:[facility] Start: 08-10-2022 End: 08-11-2022 Encounter for other preprocedural examination TACHO HOLLAND Facility:[facility] Start: 08-05-2022 End: 08-06-2022 ambulatory TAHCO HOLLAND Facility:[facility] Start: 05-14-2022 End: 05-15-[address] DOCTOR FREED Facility:[facility] Start: 04-26-2022 End: 04-28-2022 Evaluation and management of inpatient NICK O'FALLON Facility:[facility] Procedures Date Procedure Procedure Detail Performing Clinician Start: 03-22-2023 Follow-up visit Follow-up TACHO HOLLAND Payers Date Payer Category Payer Medicare [id number] 1961 Unknown [id number] 1955 Unknown [id number] 2.16.84 [id number] 1955 Unknown [id number] 2.16.84 [id number] 1955 Unknown [id number] 2.16.84 [id number] 1953 Unknown [id number] 2.16.84 [id number] 1953 Unknown [id number] 2.16.84 [id number] 1953 Unknown [id number] 2.16.84 [id number] 1953 Unknown [id number] 2.16.84 [id number] 1955 Unknown [id number] 2.16.84 [id number] 1955 Unknown [id number] 2.16.84 [id number] Clinical Notes 04-26-2022 to 12-07-2023 Note Date & Type Note Facility 12-07-2023 Note [facility] Consul t Note Reason for Consultation: Afib Date of Telehealth Visit: 12/07/23 The patient was notified that using 3rd green party telecommunication application (e.g., [employer]) is not HIPPA compliant and may carry some privacy risks. Yes The visit was conducted [id number] with the use of audio and video technology Mary. between patient and provider for a virtual visit. Verbal consent to provide and bill this service was obtained on 12/07/23 . No signature was obtained due to the COVID-19 pandemic. Patient Location: Patient Home I spent 11 minutes of total time on the day of the visit. This time was spent preparing for the visit, obtaining and reviewing any outside history/data, taking a history, performing an exam/evaluation, counseling and educating patient/family about the diagnosis and plan, performing medical decision making, referring to and communicating with other health care referrals, independently interpreting results and documenting in the EMR, and coordinating care. Please see the additional documentation in this note for specific details. 12/07/22 Patient in the office today to determine if he needs DCCV in 2 weeks. Sometimes gets epistaxis and coughs up pink phlegm. Did not take any of his medications today. EKG 12/07/23 SR 10/22/23: He is here for follow-up regarding his A-fib. He has history of nonischemic cardiomyopathy likely induced by tachyarrhythmia recently was admitted to the [facility] 10/08/2023 with A-fib RVR Has been noted he was recently off of his metoprolol for only about a day. They restarted oral Toprol and he was discharged while in A-fib. Labs 10/09/2023 sodium 139, K4.2, chloride 105, BUN 18, creatinine 1.01, GFR greater than 60, hemoglobin A1c 5.9, unremarkable liver function, unremarkable BNP and high-sensitivity troponin TTE 03/01/2023 shows severely enlarged LA, normal LVEF, grade 2 moderate diastolic dysfunction. ECG 10/22/2023 atrial flutter RVR 10/08/2023 A-fib RVR 08/2022 dr. larson HPI: Garry Streeter is a 68 y.o. year old with past medical history of NICMP, Afib with a recent cardiac cath and YOVANY/CV'n. He never knew he was in A. fib and still does not know if he is in A. fib or not. He denies complaints of chest pain, dyspnea, orthopnea, PND, lower extremity edema, palpitations, bleeding issues, syncope. He has had issues with gout, he stopped ASA. Patient was prescribed colchicine. Gout improved. Then he ran out of the medication and his gout symptoms returned, PCP refilled colchicine. He denies feeling any different after his cardioversion in regards to shortness of breath. 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 PMH: Past Medical History: Diagnosis Date CHF (congestive heart failure) (CMS/HCC) Dyspnea PAF (paroxysmal atrial fibrillation) (CMS/HCC) Systolic heart failure (CMS/HCC) PSH: No past surgical history on file. SH: Social Determinants of Health Tobacco Use: Medium Risk (10/22/2023) Patient History Smoking Tobacco Use: Former Smokeless Tobacco Use: Never Passive Exposure: Not on file Alcohol Use: Not on file Financial Resource Strain: Not on file Food Insecurity: Not on file Transportation Needs: Not on file Physical Activity: Not on file Stress: Not on file Social Connections: Not on file Intimate Partner Violence: Not on file Depression: Not on file Housing Stability: Not on file Utilities: Not on file Meds: Current Outpatient Medications on File Prior to Visit Medication Sig Dispense Refill allopurinol (Zyloprim) 300 mg tablet Take 300 mg by mouth in the morning. amiodarone (Pacerone) 200 mg tablet Take 2 tablets (400 mg) by mouth in the morning and at bedtime for 14 days, THEN 1 tablet (200 mg) in the morning. (Patient taking differently: 1 tablet daily) 86 tablet 3 apixaban (Eliquis) 5 mg tablet Take 1 tablet (5 mg) by mouth in the morning and at bedtime. 60 tablet 11 colchicine 0.6 mg tablet Take 0.6 mg by mouth if needed for muscle/joint pain. fexofenadine HCl (MUCINEX ALLERGY ORAL) Take by mouth. losartan (Cozaar) 25 mg tablet Take 1 tablet (25 mg) by mouth in the morning. 30 tablet 3 metoprolol succinate XL (Toprol-XL) 100 mg 24 hr tablet Take 2 tablets (200 mg) by mouth in the morning and at bedtime. (Patient taking differently: Take 100 mg by mouth in the morning.) 180 tablet 3 spironolactone (Aldactone) 25 mg tablet Take 1 tablet (25 mg) by mouth once daily as directed. 90 tablet 3 furosemide (Lasix) 20 mg tablet TAKE 1 TABLET BY MOUTH IN THE MORNING (Patient not taking: Reported on 12/07/2023) 60 tablet 3 potassium chloride CR (K-Tab) 20 mEq ER tablet 1 (one) time each day at the same time. No current facility-administered medications on file prior to visit. ROS: Review of Systems HENT: Positive for hearing loss and nosebleeds. Cardiovascular: Positive for dyspnea on exertion, leg (more content not included)... [facility] 10-22-2023 Note Patient here for [facility] for afib w/ RVR. He [...] All other systems reviewed and are negative. [facility] 10-22-2023 Note [facility] Consul t Note Reason for Consultation: Afib 10/22/23: He is here for follow-up regarding his A-fib. He has history of nonischemic cardiomyopathy likely induced by tachyarrhythmia recently was admitted to the [facility] 10/08/2023 with A-fib RVR Has been noted he was recently off of his metoprolol for only about a day. They restarted oral Toprol and he was discharged while in A-fib. Labs 10/09/2023 sodium 139, K4.2, chloride 105, BUN 18, creatinine 1.01, GFR greater than 60, hemoglobin A1c 5.9, unremarkable liver function, unremarkable BNP and high-sensitivity troponin TTE 03/01/2023 shows severely enlarged LA, normal LVEF, grade 2 moderate diastolic dysfunction. ECG 10/22/2023 atrial flutter RVR 10/08/2023 A-fib RVR 08/2022 dr. larson HPI: Garry Streeter is a 68 y.o. year old with past medical history of NICMP, Afib with a recent cardiac cath and YOVANY/CV'n. He never knew he was in A. fib and still does not know if he is in A. fib or not. He denies complaints of chest pain, dyspnea, orthopnea, PND, lower extremity edema, palpitations, bleeding issues, syncope. He has had issues with gout, he stopped ASA. Patient was prescribed colchicine. Gout improved. Then he ran out of the medication and his gout symptoms returned, PCP refilled colchicine. He denies feeling any different after his cardioversion in regards to shortness of breath. 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 PMH: Past Medical History: Diagnosis Date CHF (congestive heart failure) ([facility]) Dyspnea PAF (paroxysmal atrial fibrillation) ([facility]) Systolic heart failure ([facility]) PSH: No past surgical history on file. SH: Social Determinants of Health Tobacco Use: Medium Risk (03/22/2023) Patient History Smoking Tobacco Use: Former Smokeless Tobacco Use: Never Passive Exposure: Not on file Alcohol Use: Not on file Financial Resource Strain: Not on file Food Insecurity: Not on file Transportation Needs: Not on file Physical Activity: Not on file Stress: Not on file Social Connections: Not on file Intimate Partner Violence: Not on file Depression: Not on file Housing Stability: Not on file Meds: Current Outpatient Medications on File Prior to Visit Medication Sig Dispense Refill apixaban (Eliquis) 5 mg tablet Take 1 tablet (5 mg) by mouth in the morning and at bedtime. 60 tablet 11 fexofenadine HCl (MUCINEX ALLERGY ORAL) Take by mouth. furosemide (Lasix) 20 mg tablet TAKE 1 TABLET BY MOUTH IN THE MORNING 60 tablet 3 losartan (Cozaar) 50 mg tablet TAKE 1 TABLET BY MOUTH IN THE MORNING 90 tablet 3 metoprolol succinate XL (Toprol-XL) 100 mg 24 hr tablet Take 2 tablets (200 mg) by mouth in the morning and at bedtime. 180 tablet 3 spironolactone (Aldactone) 25 mg tablet Take 1 tablet (25 mg) by mouth once daily as directed. 90 tablet 3 No current facility-administered medications on file prior to visit. ROS: Cardio Basic Cardiovascular Symptoms: no lightheadedness, no leg edema, no syncope, no orthopnea, no PND, no claudication, Constitutional Constitutional: no fever, no night sweats, no significant weight gain, no significant weight loss, no exercise intolerance Eyes Eyes: no dry eyes, no irritation, no vision change ENMT Ears: no difficulty hearing, no ear pain Nose: no frequent nosebleeds, Mouth/Throat: no sore throat, no bleeding gums, no snoring, no dry mouth, no mouth ulcers, no oral abnormalities, no teeth problems Respiratory Respiratory: no cough, no wheezing, no coughing up blood, no sleep apnea Musculoskeletal Positive for gout and joint pain. Integumentary Skin no rash, no ulcer, no varicosities, no discoloration, no pruritus Neurologic Neurologic: no loss of consciousness, no weakness, no numbness, no seizures, no dizziness, no headaches Psychiatric Psych: no depression, feeling safe in relationship, no alcohol abuse, Hematologic/Lymphatic Hematologic/Lymphatic no swollen glands, no bruising Physical Exam: Telemed Labs: No visits with results within 1 Day(s) from this visit. Latest known visit with results is: Admission on 08/12/2022, Discharged on 08/12/2022 Component Date Value Ref Range Status Creatine, Serum 08/10/2022 1.37 Final Glucose, Bld 08/10/2022 103 Final BUN, Bld 08/10/2022 32 Final Sodium 08/10/2022 141 Final Potassium, Bld 08/10/2022 4.7 Final Chloride 08/10/2022 107 Final WBC 08/10/2022 9.9 Final Hemoglobin, Serum 08/10/2022 14.1 Final Hematocrit 08/10/2022 41.2 39.0 - 55.0 % Final Platelets 08/10/2022 184 Final SARS-CoV-2 Ag POC 08/12/2022 Negative Negative Final ID NOW COVID-19 assay performed on the ID NOW Instrument is a rapid molecular in vitro diagnostic test utilizing an isothermal nucleic acid amplification technology intended for the qualitative detection of nucleic acid from the SARS-CoV-2 virus in direct anterior nasal( (more content not included)... [facility] 08-30-2023 Note [facility] CARDIOLOGY PROGR ESS NOTE HPI: Garry Streeter is a 68 y.o. male past medical history of heart failure improved ejection fraction, paroxysmal atrial fibrillation, hypertension, and valvular heart disease seen in follow-up. Update: 03/22/2023 Pt is here for med check F/U for [facility] pt states he stopped taking some [...] Conclusions: Biphasic cardio (more content not included)... [facility] 08-30-2023 Note Patient here for 6 [...] All other systems reviewed and are negative. [facility] 03-22-2023 Note [facility]TP CARDIOLOGY PROGR ESS [...] normal. Mild aor (more content not included)... [facility] 02-03-2023 Note No edema today [facility] 02-03-2023 Note Stable [facility] 02-03-2023 Note EKG today-Sinus manny ycardia with PACs/PVCs- And artifact, Otherwise normal EKG He is adamant he is still taking Eliquis anticoagulation, Pharmacy denies that he is filled Eliquis or metoprolol in the last 6 months. Discussed with patient risk for stroke with paroxysmal atrial fib- He states he has cardia Monitor at home and he has not had any A-fib [facility] 02-03-2023 Note [facility] I-II Currently appears [...] Staff To obtain recent labs from PCP [facility] 02-03-2023 Note Pt is here for med c heck F/U fpr [facility] pt states he stop take some of his meds due to having Diarrhea more then 3 times a day pt also stated he was having problems walking due to gout. Review of Systems Gastrointestinal: Positive for diarrhea. All other systems reviewed and are negative. [facility] 02-03-2023 Note [facility]TP CARDIOLOGY PROGR ESS NOTE HPI: Garry Streeter is a 67 y.o. male here for Med Refill, Atrial Fibrillation, and Congestive Heart Failure Known h/o Chronic systolic heart failure, Paroxysmal atrial fib, edema, and noncompliance to med regimen. Pt is here for med check F/U for [facility] pt states he stopped taking some [...] this time. Staff called pharmacy- [facility] and patient states this is his only [...] Right ventricular syst (more content not included)... [facility] 04-26-2022 Note PROCEDURE: XR KNEE L T 4V or > COMPARISON: None. HISTORY: Swelling FINDINGS: BONES:No fracture, acute abnormality, or significant arthropathy. SOFT TISSUES:Negative. No visible soft tissue swelling. EFFUSION:Moderate suprapatellar joint effusion OTHER: Negative. IMPRESSION: Moderate joint effusion Electronically authenticated by: NICK CABRALES Date: 2022-04-26 10:09 [facility] Summary Purpose Family History No Family History Records FoundNo Family History Records FoundNo Family History Records Found Advance Directives No Advanced Directives Records FoundNo Advanced Directives Records FoundNo Advanced Directives Records Found Additional Source Comments (unrecognized sect ion and content) No Status Records FoundNo Status Records FoundNo Status Records Found INFORMATION SOURCE (unrecogn ized section and content) DATE CREATED AUTHOR 10/30/2022 [facility] DATE CREATED AUTHOR AUTHOR'S ORGANIZ ATION 03/17/2023 [facility] DATE CREATED AUTHOR AUTHOR'S ORGANIZ ATION 12/22/2023 [facility] FOR RECORDS PERTAINING TO PATIENTS WHO [...] BE BASED ON THE PRIMARY CLINICAL RECORDS. [employer] provides no warranty or guarantee of the accuracy or completeness of information in this document.
[2024-01-12 13:58] LABS: Prostate Specific Antigen Scrn 1.29 ng/mL (<=4.00)
== END 2024-01-12 12:00 | disposition home or self-care (01) ==
LOC: LAB 12:01
PROVIDERS: PCP Nurse Practitioner Primary Care; Visit Provider Nurse Practitioner Primary Care
DX: Z12.5 Encounter for screening for malignant neoplasm of prostate (principal); I48.0 Paroxysmal atrial fibrillation
CPT/HCPCS: 36415; G0103

== ENCOUNTER 2024-01-12 12:05 | Outpatient (OUT) | payer BC, SELFPAY ==
--- OUTSIDE RECORDS SUMMARY | 2024-01-12 12:20 | XMS_ITS | CCD ---
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; Translations: [LONG-TERM CURRNT USE ANTICOAGULANTS] Onset: 11-01-2022 Episodic Other [...] Prep for Procedureon 024 Prep for Procedure [id number] Garry Streeter 1955 Date Provider Department Center 12/14/20231986-[facility] Family History Problem Relation Age of Onset Colon cancer Brother Family Status - Relation Status Age at Brother Normal [facility] Orders Onlyon 12-13-2023 Orders Only [id number] Garry Streeter 1955 Date Provider Department Center 12/13/2023 [facility] Family History Problem Relation Age of Onset Colon cancer Brother Family Status - Relation Status Age at Brother Normal [facility] Telemedicineon 12-07-2023 Telemedicine [id number] Garry Streeter [address] [facility] Provider Department [place] 12/07/2023 Kenneth-EMILY LARSON [facility] Family History Problem Relation Age of Onset Colon cancer Brother Family Status - Relation Status Age at Brother Level of Service:46540 HI PHYS/QHP TELEPHONE EVALUATION 11-20 MIN [facility] 36on 11-05-2023 36 I dont see a specifi c reason why he could not be started on it so should be fine Normal [facility] Telephoneon 11-04-2023 Telephone [id number] Garry Streeter 1955 [facility] Department [place] 11/04/2023 Damian-MONICA DACOSTA [facility] Family History Problem Relation Age of Onset Colon cancer Brother Family Status - Relation Status Age at Brother Normal [facility] Office Visiton 10-22-2023 Follow-up visit [id number] Angeles [address] [facility] Provider Department [place] 10/22/2023 Chencho-MEET LEE CARD [facility] Family History Problem Relation Age of Onset Colon cancer Brother Family Status - Relation Status Age at Brother Level of Service:15375 HI OFFICE/OUTPATIENT ESTABLISHED MOD MDM 30 MIN Normal [facility] Office Visiton 08-30-2023 Follow-up visit [id number] Angeles [address] [facility] Provider Department [place] 08/30/2023 [id number]-BKPDRSGGIMARTIN SPENCER CARD [facility] Family History Problem Relation Age of Onset Colon cancer Brother Family Status - Relation Status Age at Brother Level of Service:63981 HI OFFICE/OUTPATIENT ESTABLISHED MOD MDM 30-39 MIN Normal [facility] Office Visiton 03-22-2023 Follow-up visit [id number] Angeles 1955 M Date Provider Department Center 03/22/2023 3848-TACHO HOLLAND CARD Esha Champion Family History Problem Relation Age of Onset Colon cancer Brother Family Status - Relation Status Age at Brother Level of Service:57144 HI OFFICE/OUTPATIENT ESTABLISHED MOD MDM 30-39 MIN Reason for Visit and Comments: Follow-up [594442] - f/u echo Normal [facility] ECHOCARDIO M/2D COMPLETEon 0 03-01-2023 ECHOCARDIO M/2D COMPLETE Patient: GARRY STREETER Exam Date: 03/01/2023 : 1955 Gender:M Ordering : SARAH RAMIREZ Admission #: [id number] Family : WARREN JOYNER DOT NET ARCHITECT-C Order #: [id number] CLICK HERE TO VIEW EXAM ECHOCARDIOGRAM REPORT [...] Baumann M.D. on 03/01/2023 at 09:21 Normal [facility] Office Visiton 02-03-2023 Follow-up visit [id number] Garry Streeter 1955 M Date Provider Department Center 02/03/2023 Sean-SARAH RAMIREZ CARD [facility] Family History Problem Relation Age of Onset Colon cancer Brother Family Status - Relation Status Age at Brother Level of Service:43897 HI OFFICE/OUTPATIENT ESTABLISHED MOD MDM 30-39 MIN Reason for Visit and Comments: Med Refill [009043] Atrial Fibrillation [80] Congestive Heart Failure [127] Normal [facility] BNPon 01-15-2023 Natriuretic peptide B (Bld) [Mass/Vol] 20.0 pg/mL Normal <=900.0 [facility] Comment on above: Performed By: #### B DOT NET ARCHITECT, MG, CMP #### [facility] [address] [place] [address] Dr. Miah Veloz HEMOGRAM AND PLATELon 2022 Hematocrit (Bld) [Volume fraction] 41.3 % Critically low 42.0-54.0 [facility] Comment on above: Performed By: #### B DOT NET ARCHITECT, CMP, HSTROPN #### [facility] [address] [address] [address] Miah Veloz Hemoglobin (Bld) [Mass/Vol] 14.2 g/dL Normal 14.0-18.0 [facility] Comment on above: Performed By: #### B DOT NET ARCHITECT, CMP, HSTROPN #### [facility] [address] [address] [address] Miah Veloz MCH (RBC) [Entitic mass] 31.5 pg Normal 25.9-34.0 [facility] Comment on above: Performed By: #### B DOT NET ARCHITECT, CMP, HSTROPN #### [facility] [address] [place] [address] Dr. Miah Veloz MCHC (RBC) [Mass/Vol] 34.4 g/dL Normal 29.9-35.2 [facility] Comment on above: Performed By: #### B DOT NET ARCHITECT, CMP, HSTROPN #### [facility] [address] [place] [address] Dr. Miah Veloz MCV (RBC) [Entitic vol] 91.6 fL Normal 80.0-94.0 [facility] Comment on above: Performed By: #### B DOT NET ARCHITECT, CMP, HSTROPN #### [facility] [address] [place] [address] Dr. Miah Veloz PLT 173 103/ul Normal 150-450 [facility] Comment on above: Performed By: #### B DOT NET ARCHITECT, CMP, HSTROPN #### [facility] [address] [place] [address] Dr. Miah Veloz RBC 4.51 106/ul Critically low 4.70-6.10 [facility] Comment on above: Performed By: #### B DOT NET ARCHITECT, CMP, HSTROPN #### [facility] [address] [place] [address] Dr. Miah Veloz WBC 5.8 103/ul Normal 4.0-11.0 [facility] Comment on above: Performed By: #### B DOT NET ARCHITECT, CMP, HSTROPN #### [facility] [address] [place] [address] Dr. Miah Veloz MAGNESIUMon 01-15-2023 Magnesium [Mass/Vol] 1.9 mg/dL Normal 1.8-2.4 [facility] Comment on above: Performed By: #### B DOT NET ARCHITECT, MG, CMP #### [facility] [address] [place] [address] Dr. Miah Veloz PROF 14(COMP METB)on 023 Albumin [Mass/Vol] 3.8 g/dL Normal 3.4-5.0 [facility] Comment on above: Performed By: #### B DOT NET ARCHITECT, MG, CMP #### [facility] [address] [place] [address] Dr. Miah Veloz Albumin/Globulin [Mass ratio] 0.9 {ratio} Normal [facility] Comment on above: Performed By: #### B DOT NET ARCHITECT, MG, CMP #### [facility] [address] [address] [address] Miah Veloz ALP [Catalytic activity/Vol] 86 U/L Normal 46-116 [facility] Comment on above: Performed By: #### B DOT NET ARCHITECT, MG, CMP #### [facility] [address] [address] [address] Miah Veloz ALT [Catalytic activity/Vol] 26 U/L Normal 16-63 [facility] Comment on above: Performed By: #### B DOT NET ARCHITECT, MG, CMP #### [facility] [address] [address] [address] Miah Veloz Anion gap [Moles/Vol] 11.3 mmol/L Normal [facility] Comment on above: Performed By: #### B DOT NET ARCHITECT, MG, CMP #### [facility] [address] [place] [address] Dr. Miah Veloz AST [Catalytic activity/Vol] 18 U/L Normal 15-37 [facility] Comment on above: Performed By: #### B DOT NET ARCHITECT, MG, CMP #### [facility] [address] [address] [address] Miah Veloz Bilirubin [Mass/Vol] 0.6 mg/dL Normal 0.2-1.0 [facility] Comment on above: Performed By: #### B DOT NET ARCHITECT, MG, CMP #### [facility] [address] [place] [address] Dr. Miah Veloz Calcium [Mass/Vol] 9.4 mg/dL Normal 8.5-10.1 [facility] Comment on above: Performed By: #### B DOT NET ARCHITECT, MG, CMP #### [facility] [address] [place] [address] Dr. Miah Veloz Chloride [Moles/Vol] 105 mmol/L Normal 98-107 [facility] Comment on above: Performed By: #### B DOT NET ARCHITECT, MG, CMP #### [facility] [address] [address] [address] Miah Veloz CO2 [Moles/Vol] 30.2 mmol/L Normal 21.0-32.0 [facility] Comment on above: Performed By: #### B DOT NET ARCHITECT, MG, CMP #### [facility] [address] [address] [address] Miah Veloz Creatinine [Mass/Vol] 0.88 mg/dL Normal 0.70-1.30 [facility] Comment on above: Performed By: #### B DOT NET ARCHITECT, MG, CMP #### [facility] [address] [address] [address] Miah Veloz EGFR-AF CITIZEN [place] >60 Normal >=60 [facility] Comment on above: Performed By: #### B DOT NET ARCHITECT, MG, CMP #### [facility] [address] [address] [address] Miah Veloz EGFR-NON AF CITIZEN OF [place] >60 Normal >=60 [facility] Comment on above: Performed By: #### B DOT NET ARCHITECT, MG, CMP #### [facility] [address] [address] [address] Miah Veloz Globulin (S) [Mass/Vol] 4.1 g/dL Normal [facility] Comment on above: Performed By: #### B DOT NET ARCHITECT, MG, CMP #### [facility] [address] [address] [address] Miah Veloz Glucose [Mass/Vol] 98 mg/dL Normal 74-106 [facility] Comment on above: Performed By: #### B DOT NET ARCHITECT, MG, CMP #### [facility] [address] [address] [address] Miah Veloz Potassium [Moles/Vol] 4.5 mmol/L Normal 3.5-5.1 [facility] Comment on above: Performed By: #### B DOT NET ARCHITECT, MG, CMP #### [facility] [address] [address] [address] Miah Veloz Protein [Mass/Vol] 7.9 g/dL Normal 6.4-8.2 [facility] Comment on above: Performed By: #### B DOT NET ARCHITECT, MG, CMP #### [facility] [address] [address] [address] Miah Veloz Sodium [Moles/Vol] 142 mmol/L Normal 136-145 [facility] Comment on above: Performed By: #### B DOT NET ARCHITECT, MG, CMP #### [facility] [address] [address] [address] Miah Veloz Urea nitrogen [Mass/Vol] 15.0 mg/dL Normal 7.0-18.0 [facility] Comment on above: Performed By: #### B DOT NET ARCHITECT, MG, CMP #### [facility] [address] [address] [address] Miah Veloz Urea nitrogen/Creatinine [Mass ratio] 17.0 mg/mg Normal [facility] Comment on above: Performed By: #### B DOT NET ARCHITECT, MG, CMP #### [facility] [address] [id number] Miah Veloz XR CHEST 2 Von [...] by: LUZMA PHAM Date: 2023-01-15 12:47 Normal [facility] SURGICAL PATH REPORTon 10-29 SURGICAL PATH REPORT [facility] Department of Pathology [address] [place] [phone] Name: GARRY STREETER : 1955 [facility] [id number] Number: Gender Male Locatio INDIO MARLETTE : n: Admit 67 years Attending TAVIA [place] Age: Provider: Ordering TAVIA [place] Provider: Consulti Surgical Pathology Report ng: ACCESSION: COLLECTED DATE/TIME: RECEIVED DATE/TIME: PATHOLOGIST: [id number] 10/28/2022 11:24 EST 10/28/2022 11:24 EST MATT PELAEZ MD Final Diagnosis Report for [facility] [place], [place] (A) SIGMOID POLYP AT 40 CM: [...] Number: Date/Time: [facility] Department of Pathology [address] [place], [place] [id number] Name: GARRY STREETER : 1955 [facility] [id number] Number: Gender Male [facility] : n: Admit 67 years Attending TAVIA [place] Age: Provider: Ordering TAVIA [place] Provider: Consulti Surgical Pathology Report ng: ACCESSION: COLLECTED DATE/TIME: RECEIVED DATE/TIME: PATHOLOGIST: [id number] 10/28/2022 11:24 EST 10/28/2022 11:24 EST MATT [...] MP/ald 10/28/2022 Tissue pathology report for: [facility], [address] [place] [address]; PATHOLOGY SERVICES PROVIDED BY [facility] , [facility] (CLIA #[id number]) in cooperation with [facility] [place] [facility] at [address] [place] [address] ( CLIA #[id number]) Codes CPT CODE: [id number] ____ Print 10/29/2022 14:17 EST Number: Date/Time: Normal [facility] [place] [facility] Comment on above: Performed By: #### [id number] #### [facility] Laboratory Services [address] [place] [address] Practicing Dermatologist: Matt Pelaez MD Covid-19 PCR (CVDTB)on SARS-CoV-2 (COVID-19) RNA GÓMEZ+probe Ql (Unsp spec) Not detected Normal NOT DETECTED [facility] Comment on above: Result Comment: This test is not yet approved or cleared by the [place] FDA. When there are no FDA-approved or cleared tests available, and other criteria are met, FDA can make tests available under an emergency access mechanism called an Emergency Use Authorization (EUA). The EUA for this test is supported by the [place] of Health and Human Service's (HHS's) declaration [...] Performed By: #### C VDTBH #### [facility] [address] [place] [address] Dr. Miah Veloz CBC AUTO DIFFon 08-10-2022 BASO # 0.1 103/ul Normal 0.0-0.1 [facility] Comment on above: Performed By: #### B DOT NET ARCHITECT, CMP, HSTROPN #### [facility] [address] [place] [address] Dr. Miah Veloz Basophils/100 WBC (Bld) 0.7 % Normal 0.2-2.0 [facility] Comment on above: Performed By: #### B DOT NET ARCHITECT, CMP, HSTROPN #### [facility] [address] [place] [address] Dr. Miah Veloz EO # 0.4 103/ul Normal 0.0-0.7 [facility] Comment on above: Performed By: #### B DOT NET ARCHITECT, CMP, HSTROPN #### [facility] [address] [place] [address] Dr. Miah Veloz Eosinophils/100 WBC (Bld) 4.1 % Normal 0.9-7.0 [facility] Comment on above: Performed By: #### B DOT NET ARCHITECT, CMP, HSTROPN #### [facility] [address] [place] [address] Dr. Miah Veloz Erythrocyte distribution width (RBC) [Ratio] 16.0 % Critically high 11.0-15.0 [facility] Comment on above: Performed By: #### B DOT NET ARCHITECT, CMP, HSTROPN #### [facility] [address] [place] [address] Dr. Miah Veloz Hematocrit (Bld) [Volume fraction] 41.2 % Critically low 42.0-54.0 [facility] Comment on above: Performed By: #### B DOT NET ARCHITECT, CMP, HSTROPN #### [facility] [address] [place] [address] Dr. Miah Veloz Hemoglobin (Bld) [Mass/Vol] 14.1 g/dL Normal 14.0-18.0 [facility] Comment on above: Performed By: #### B DOT NET ARCHITECT, CMP, HSTROPN #### [facility] [address] [place] [address] Dr. Miah Veloz IG # 0.03 10e3/ul Normal 0.00-0.03 [facility] Comment on above: Performed By: #### B DOT NET ARCHITECT, CMP, HSTROPN #### [facility] [address] [place] [address] Dr. Miah Veloz IG % 0.3 % Normal 0.0-0.5 [facility] Comment on above: Performed By: #### B DOT NET ARCHITECT, CMP, HSTROPN #### [facility] [address] [place] [address] Dr. Miah Veloz LYMPH # 2.8 103/ul Normal 1.2-3.8 [facility] Comment on above: Performed By: #### B DOT NET ARCHITECT, CMP, HSTROPN #### [facility] [address] [place] [address] Dr. Miah Veloz Lymphocytes/100 WBC (Bld) 28.5 % Normal 20.5-60.0 [facility] Comment on above: Performed By: #### B DOT NET ARCHITECT, CMP, HSTROPN #### [facility] [address] [place] [address] Dr. Miah Veloz MANUAL DIFF REQ NO Normal [facility] Comment on above: Performed By: #### B DOT NET ARCHITECT, CMP, HSTROPN #### [facility] [address] [place] [address] Dr. Miah Veloz MCH (RBC) [Entitic mass] 32.4 pg Normal 25.9-34.0 [facility] Comment on above: Performed By: #### B DOT NET ARCHITECT, CMP, HSTROPN #### [facility] [address] [place] [address] Dr. Miah Veloz MCHC (RBC) [Mass/Vol] 34.2 g/dL Normal 29.9-35.2 [facility] Comment on above: Performed By: #### B DOT NET ARCHITECT, CMP, HSTROPN #### [facility] [address] [place] [address] Dr. Miah Veloz MCV (RBC) [Entitic vol] 94.7 fL Critically high 80.0-94.0 [facility] Comment on above: Performed By: #### B DOT NET ARCHITECT, CMP, HSTROPN #### [facility] [address] [place] [address] Dr. Miah Veloz MONO # 0.8 103/ul Normal 0.3-0.8 [facility] Comment on above: Performed By: #### B DOT NET ARCHITECT, CMP, HSTROPN #### [facility] [address] [place] [address] Dr. Miah Veloz Monocytes/100 WBC (Bld) 7.6 % Normal 1.7-12.0 [facility] Comment on above: Performed By: #### B DOT NET ARCHITECT, CMP, HSTROPN #### [facility] [address] [place] [address] Dr. Miah Veloz NEUT # 5.8 103/ul Normal 1.4-6.5 [facility] Comment on above: Performed By: #### B DOT NET ARCHITECT, CMP, HSTROPN #### [facility] [address] [place] [address] Dr. Miah Veloz Neutrophils/100 WBC (Bld) 58.8 % Normal 43.0-75.0 [facility] Comment on above: Performed By: #### B DOT NET ARCHITECT, CMP, HSTROPN #### [facility] [address] [place] [address] Dr. Miah Veloz Platelet mean volume (Bld) [Entitic vol] 10.3 fL Normal 9.5-13.5 [facility] Comment on above: Performed By: #### B DOT NET ARCHITECT, CMP, HSTROPN #### [facility] [address] [address] [address] Miah Veloz PLT 184 103/ul Normal 150-450 [facility] Comment on above: Performed By: #### B DOT NET ARCHITECT, CMP, HSTROPN #### [facility] [address] [address] [address] Miah Veloz RBC 4.35 106/ul Critically low 4.70-6.10 [facility] Comment on above: Performed By: #### B DOT NET ARCHITECT, CMP, HSTROPN #### [facility] [address] [place] [address] Dr. Miah Veloz WBC 9.9 103/ul Normal 4.0-11.0 [facility] Comment on above: Performed By: #### B DOT NET ARCHITECT, CMP, HSTROPN #### [facility] [address] [place] [address] Dr. Miah Veloz PROF CHEM 8 (BAS METB)on Anion gap [Moles/Vol] 13.2 mmol/L Normal [facility] Comment on above: Performed By: #### B DOT NET ARCHITECT, CMP, HSTROPN #### [facility] [address] [place] [address] Dr. Miah Veloz Calcium [Mass/Vol] 8.8 mg/dL Normal 8.5-10.1 [facility] Comment on above: Performed By: #### B DOT NET ARCHITECT, CMP, HSTROPN #### [facility] [address] [place] [address] Dr. Miah Veloz Chloride [Moles/Vol] 107 mmol/L Normal 98-107 [facility] Comment on above: Performed By: #### B DOT NET ARCHITECT, CMP, HSTROPN #### [facility] [address] [place] [address] Dr. Miah Veloz CO2 [Moles/Vol] 25.5 mmol/L Normal 21.0-32.0 [facility] Comment on above: Performed By: #### B DOT NET ARCHITECT, CMP, HSTROPN #### [facility] [address] [address] [address] Miah Veloz Creatinine [Mass/Vol] 1.37 mg/dL Critically high 0.70-1.30 [facility] Comment on above: Performed By: #### B DOT NET ARCHITECT, CMP, HSTROPN #### [facility] [address] [place] [address] Dr. Miah Veloz EGFR-AF CITIZEN [place] >60 Normal >=60 [facility] Comment on above: Performed By: #### B DOT NET ARCHITECT, CMP, HSTROPN #### [facility] [address] [place] [address] Dr. Miah Veloz EGFR-NON AF CITIZEN OF [place] 52 mL/min/1.73m2 Critically low >=60 [facility] Comment on above: Performed By: #### B DOT NET ARCHITECT, CMP, HSTROPN #### [facility] [address] [place] [address] Dr. Miah Veloz Glucose [Mass/Vol] 103 mg/dL Normal 74-106 [facility] Comment on above: Performed By: #### B DOT NET ARCHITECT, CMP, HSTROPN #### [facility] [address] [address] [address] Miah Veloz Potassium [Moles/Vol] 4.7 mmol/L Normal 3.5-5.1 [facility] Comment on above: Performed By: #### B DOT NET ARCHITECT, CMP, HSTROPN #### [facility] [address] [place] [address] Dr. Miah Veloz Sodium [Moles/Vol] 141 mmol/L Normal 136-145 [facility] Comment on above: Performed By: #### B DOT NET ARCHITECT, CMP, HSTROPN #### [facility] [address] [address] [address] Miah Veloz Urea nitrogen [Mass/Vol] 32.0 mg/dL Critically high 7.0-18.0 [facility] Comment on above: Performed By: #### B DOT NET ARCHITECT, CMP, HSTROPN #### [facility] [address] [place], [place] [address] Dr. Miah Veloz Urea nitrogen/Creatinine [Mass ratio] 23.4 mg/mg Normal [facility] Comment on above: Performed By: #### B DOT NET ARCHITECT, CMP, HSTROPN #### [facility] [address] [place], [place] [address] Dr. Miah Veloz ECHOCARDIO M/2D COMPLETEon 0 08-05-2022 ECHOCARDIO M/2D COMPLETE Patient: GARRY STREETER Exam Date: 08/05/2022 : 1955 Gender:M Ordering : TACHO HOLLAND Admission #: [id number] Family : Order #: [id number] CLICK HERE TO VIEW EXAM ECHOCARDIOGRAM REPORT [...] on 08/05/2022 at 14:32 Normal [facility] PROF 14(COMP METB)on 022 Albumin [Mass/Vol] 3.4 g/dL Normal 3.4-5.0 [facility] Comment on above: Performed By: #### B DOT NET ARCHITECT, CMP, HSTROPN #### [facility] [address] [place] [address] Dr. Miah Veloz Albumin/Globulin [Mass ratio] 0.9 {ratio} Normal [facility] Comment on above: Performed By: #### B DOT NET ARCHITECT, CMP, HSTROPN #### [facility] [address] [address] [address] Miah Veloz ALP [Catalytic activity/Vol] 73 U/L Normal 46-116 [facility] Comment on above: Performed By: #### B DOT NET ARCHITECT, CMP, HSTROPN #### [facility] Laboratory [address] [address] [address] Miah Veloz ALT [Catalytic activity/Vol] 31 U/L Normal 16-63 [facility] Comment on above: Performed By: #### B DOT NET ARCHITECT, CMP, HSTROPN #### [facility] [address] [address] [address] Miah Veloz Anion gap [Moles/Vol] 13.6 mmol/L Normal [facility] Comment on above: Performed By: #### B DOT NET ARCHITECT, CMP, HSTROPN #### [facility] [address] [address] [address] Miah Veloz AST [Catalytic activity/Vol] 14 U/L Critically low 15-37 [facility] Comment on above: Performed By: #### B DOT NET ARCHITECT, CMP, HSTROPN #### [facility] [address] [address] [address] Miah Veloz Bilirubin [Mass/Vol] 0.6 mg/dL Normal 0.2-1.0 [facility] Comment on above: Performed By: #### B DOT NET ARCHITECT, CMP, HSTROPN #### [facility] [address] [address] [address] Miah Veloz Calcium [Mass/Vol] 8.8 mg/dL Normal 8.5-10.1 [facility] Comment on above: Performed By: #### B DOT NET ARCHITECT, CMP, HSTROPN #### [facility] [address] [address] [address] Miah Veloz Chloride [Moles/Vol] 105 mmol/L Normal 98-107 [facility] Comment on above: Performed By: #### B DOT NET ARCHITECT, CMP, HSTROPN #### [facility] Laboratory [address] [place] [address] Dr. Miah Veloz CO2 [Moles/Vol] 27.7 mmol/L Normal 21.0-32.0 [facility] Comment on above: Performed By: #### B DOT NET ARCHITECT, CMP, HSTROPN #### [facility] [address] [address] [address] Miah Veloz Creatinine [Mass/Vol] 1.17 mg/dL Normal 0.70-1.30 [facility] Comment on above: Performed By: #### B DOT NET ARCHITECT, CMP, HSTROPN #### [facility] [address] [address] [address] Miah Veloz EGFR-AF CITIZ[place] >60 Normal >=60 [facility] Comment on above: Performed By: #### B DOT NET ARCHITECT, CMP, HSTROPN #### [facility] [address] [address] [address] Miah Veloz EGFR-NON AF CITIZEN [place] >60 Normal >=60 [facility] Comment on above: Performed By: #### B DOT NET ARCHITECT, CMP, HSTROPN #### [facility] [address] [address] [address] Miah Veloz Globulin (S) [Mass/Vol] 3.9 g/dL Normal [facility] Comment on above: Performed By: #### B DOT NET ARCHITECT, CMP, HSTROPN #### [facility] [address] [place] [address] Dr. Miah Veloz Glucose [Mass/Vol] 138 mg/dL Critically high 74-106 [facility] Comment on above: Performed By: #### B DOT NET ARCHITECT, CMP, HSTROPN #### [facility] [address] [place] [address] Dr. Miah Veloz Potassium [Moles/Vol] 4.3 mmol/L Normal 3.5-5.1 [facility] Comment on above: Performed By: #### B DOT NET ARCHITECT, CMP, HSTROPN #### [facility] [address] [place] [address] Dr. Miah Veloz Protein [Mass/Vol] 7.3 g/dL Normal 6.4-8.2 [facility] Comment on above: Performed By: #### B DOT NET ARCHITECT, CMP, HSTROPN #### [facility] [address] [place] [address] Dr. Miah Veloz Sodium [Moles/Vol] 142 mmol/L Normal 136-145 [facility] Comment on above: Performed By: #### B DOT NET ARCHITECT, CMP, HSTROPN #### [facility] [address] [place] [address] Dr. Miah Veloz Urea nitrogen [Mass/Vol] 25.0 mg/dL Critically high 7.0-18.0 [facility] Comment on above: Performed By: #### B DOT NET ARCHITECT, CMP, HSTROPN #### [facility] [address] [address] [address] Miah Veloz Urea nitrogen/Creatinine [Mass ratio] 21.4 mg/mg Normal [facility] Comment on above: Performed By: #### B DOT NET ARCHITECT, CMP, HSTROPN #### [facility] [address] [address] [address] Miah Veloz US BRANDO DOP LEG [...] Date: 2022-05-14 16:51 Normal [facility] CBC AUTO DIFFon 04-28-2022 BASO # 0.1 103/ul Normal 0.0-0.1 [facility] Comment on above: Performed By: #### C BC #### [facility] [address] [address] [address] Miah Veloz Basophils/100 WBC (Bld) 0.7 % Normal 0.2-2.0 [facility] Comment on above: Performed By: #### C BC #### [facility] [address] [address] [address] Miah Veloz EO # 0.2 103/ul Normal 0.0-0.7 [facility] Comment on above: Performed By: #### C BC #### [facility] [address] [address] [address] Miah Veloz Eosinophils/100 WBC (Bld) 2.9 % Normal 0.9-7.0 [facility] Comment on above: Performed By: #### C BC #### [facility] [address] [place] [address] Dr. Miah Veloz Erythrocyte distribution width (RBC) [Ratio] 13.2 % Normal 11.0-15.0 [facility] Comment on above: Performed By: #### C BC #### [facility] [address] [place] [address] Dr. Miah Veloz Hematocrit (Bld) [Volume fraction] 36.9 % Critically low 42.0-54.0 [facility] Comment on above: Performed By: #### C BC #### [facility] [address] [place] [address] Dr. Miah Veloz Hemoglobin (Bld) [Mass/Vol] 12.4 g/dL Critically low 14.0-18.0 [facility] Comment on above: Performed By: #### C BC #### [facility] [address] [place] [address] Dr. Miah Veloz IG # 0.03 10e3/ul Normal 0.00-0.03 [facility] Comment on above: Performed By: #### C BC #### [facility] [address] [place] [address] Dr. Miah Veloz IG % 0.4 % Normal 0.0-0.5 [facility] Comment on above: Performed By: #### C BC #### [facility] [address] [place] [address] Dr. Miah Veloz LYMPH # 1.8 103/ul Normal 1.2-3.8 [facility] Comment on above: Performed By: #### C BC #### [facility] [address] [place] [address] Dr. Miah Veloz Lymphocytes/100 WBC (Bld) 23.0 % Normal 20.5-60.0 [facility] Comment on above: Performed By: #### C BC #### [facility] [address] [place] [address] Dr. Miah Veloz MANUAL DIFF REQ NO Normal [facility] Comment on above: Performed By: #### C BC #### [facility] [address] [place] [address] Dr. Miah Veloz MCH (RBC) [Entitic mass] 32.3 pg Normal 25.9-34.0 [facility] Comment on above: Performed By: #### C BC #### [facility] [address] [place] [address] Dr. Miah Veloz MCHC (RBC) [Mass/Vol] 33.6 g/dL Normal 29.9-35.2 [facility] Comment on above: Performed By: #### C BC #### [facility] [address] [place] [address] Dr. Miah Veloz MCV (RBC) [Entitic vol] 96.1 fL Critically high 80.0-94.0 [facility] Comment on above: Performed By: #### C BC #### [facility] [address] [place] [address] Dr. Miah Veloz MONO # 0.8 103/ul Normal 0.3-0.8 [facility] Comment on above: Performed By: #### C BC #### [facility] [address] [place] [address] Dr. Miah Veloz Monocytes/100 WBC (Bld) 10.2 % Normal 1.7-12.0 [facility] Comment on above: Performed By: #### C BC #### [facility] [address] [place] [address] Dr. Miah Veolz NEUT # 4.8 103/ul Normal 1.4-6.5 [facility] Comment on above: Performed By: #### C BC #### [facility] [address] [place] [address] Dr. Miah Veloz Neutrophils/100 WBC (Bld) 62.8 % Normal 43.0-75.0 [facility] Comment on above: Performed By: #### C BC #### [facility] [address] [place] [address] Dr. Miah Veloz Platelet mean volume (Bld) [Entitic vol] 10.2 fL Normal 9.5-13.5 [facility] Comment on above: Performed By: #### C BC #### [facility] [address] [place] [address] Dr. Miah Veloz PLT 224 103/ul Normal 150-450 [facility] Comment on above: Performed By: #### C BC #### [facility] [address] [place] [address] Dr. Miah Veloz RBC 3.84 106/ul Critically low 4.70-6.10 [facility] Comment on above: Performed By: #### C BC #### [facility] [address] [place] [address] Dr. Miah Veloz WBC 7.7 103/ul Normal 4.0-11.0 [facility] Comment on above: Performed By: #### C BC #### [facility] [address] [place] [address] Dr. Miah Veloz PROF CHEM 8 (BAS METB)on Anion gap [Moles/Vol] 14.4 mmol/L Normal [facility] Comment on above: Performed By: #### B DOT NET ARCHITECT, CMP, HSTROPN #### [facility] [address] [place] [address] Dr. Miah eVloz Calcium [Mass/Vol] 8.3 mg/dL Critically low 8.5-10.1 [facility] Comment on above: Performed By: #### B DOT NET ARCHITECT, CMP, HSTROPN #### [facility] [address] [place] [address] Dr. Miah Veloz Chloride [Moles/Vol] 106 mmol/L Normal 98-107 [facility] Comment on above: Performed By: #### B DOT NET ARCHITECT, CMP, HSTROPN #### [facility] [address] [place] [address] Dr. Miah Veloz CO2 [Moles/Vol] 27.0 mmol/L Normal 21.0-32.0 [facility] Comment on above: Performed By: #### B DOT NET ARCHITECT, CMP, HSTROPN #### [facility] [address] [place] [address] Dr. Miah Veloz Creatinine [Mass/Vol] 1.12 mg/dL Normal 0.70-1.30 [facility] Comment on above: Performed By: #### B DOT NET ARCHITECT, CMP, HSTROPN #### [facility] [address] [place] [address] Dr. Miah Veloz EGFR-AF CITIZ[place] >60 Normal >=60 [facility] Comment on above: Performed By: #### B DOT NET ARCHITECT, CMP, HSTROPN #### [facility] [address] [place] [address] Dr. Miah Veloz EGFR-NON AF CITIZ[place] >60 Normal >=60 [facility] Comment on above: Performed By: #### B DOT NET ARCHITECT, CMP, HSTROPN #### [facility] [address] [place] [address] Dr. Miah Veloz Glucose [Mass/Vol] 103 mg/dL Normal 74-106 [facility] Comment on above: Performed By: #### B DOT NET ARCHITECT, CMP, HSTROPN #### [facility] [address] [place] [address] Dr. Miah Veloz Potassium [Moles/Vol] 3.4 mmol/L Critically low 3.5-5.1 [facility] Comment on above: Performed By: #### B DOT NET ARCHITECT, CMP, HSTROPN #### [facility] [address] [place] [address] Dr. Miah Veloz Sodium [Moles/Vol] 144 mmol/L Normal 136-145 [facility] Comment on above: Performed By: #### B DOT NET ARCHITECT, CMP, HSTROPN #### [facility] [address] [place] [address] Dr. Miah Veloz Urea nitrogen [Mass/Vol] 21.0 mg/dL Critically high 7.0-18.0 [facility] Comment on above: Performed By: #### B DOT NET ARCHITECT, CMP, HSTROPN #### [facility] [address] [place] [address] Dr. Miah Veloz Urea nitrogen/Creatinine [Mass ratio] 18.8 mg/mg Normal [facility] Comment on above: Performed By: #### B DOT NET ARCHITECT, CMP, HSTROPN #### [facility] [address] [place] [address] Dr. Miah Veloz CBC AUTO DIFFon 04-27-2022 BASO # 0.0 103/ul Normal 0.0-0.1 [facility] Comment on above: Performed By: #### B DOT NET ARCHITECT, CMP, HSTROPN #### [facility] [address] [place] [address] Dr. Miah Veloz Basophils/100 WBC (Bld) 0.4 % Normal 0.2-2.0 [facility] Comment on above: Performed By: #### B DOT NET ARCHITECT, CMP, HSTROPN #### [facility] [address] [place] [address] Dr. Miah Veloz EO # 0.2 103/ul Normal 0.0-0.7 [facility] Comment on above: Performed By: #### B DOT NET ARCHITECT, CMP, HSTROPN #### [facility] [address] [place] [address] Dr. Miah Veloz Eosinophils/100 WBC (Bld) 3.2 % Normal 0.9-7.0 [facility] Comment on above: Performed By: #### B DOT NET ARCHITECT, CMP, HSTROPN #### [facility] [address] [place] [address] Dr. Miah Veloz Erythrocyte distribution width (RBC) [Ratio] 13.6 % Normal 11.0-15.0 [facility] Comment on above: Performed By: #### B DOT NET ARCHITECT, CMP, HSTROPN #### [facility] [address] [place] [address] Dr. Miah Veloz Hematocrit (Bld) [Volume fraction] 36.7 % Critically low 42.0-54.0 [facility] Comment on above: Performed By: #### B DOT NET ARCHITECT, CMP, HSTROPN #### [facility] [address] [place] [address] Dr. Miah Veloz Hemoglobin (Bld) [Mass/Vol] 12.0 g/dL Critically low 14.0-18.0 [facility] Comment on above: Performed By: #### B DOT NET ARCHITECT, CMP, HSTROPN #### [facility] [address] [place] [address] Dr. Miah Veloz IG # 0.02 10e3/ul Normal 0.00-0.03 [facility] Comment on above: Performed By: #### B DOT NET ARCHITECT, CMP, HSTROPN #### [facility] [address] [place] [address] Dr. Miah Veloz IG % 0.3 % Normal 0.0-0.5 [facility] Comment on above: Performed By: #### B DOT NET ARCHITECT, CMP, HSTROPN #### [facility] [address] [place] [address] Dr. Miah Veloz LYMPH # 1.6 103/ul Normal 1.2-3.8 [facility] Comment on above: Performed By: #### B DOT NET ARCHITECT, CMP, HSTROPN #### [facility] [address] [place] [address] Dr. Miah Veloz Lymphocytes/100 WBC (Bld) 22.2 % Normal 20.5-60.0 [facility] Comment on above: Performed By: #### B DOT NET ARCHITECT, CMP, HSTROPN #### [facility] [address] [place] [address] Dr. Miah Veloz MANUAL DIFF REQ NO Normal [facility] Comment on above: Performed By: #### B DOT NET ARCHITECT, CMP, HSTROPN #### [facility] [address] [place] [address] Dr. Miah Veloz MCH (RBC) [Entitic mass] 32.3 pg Normal 25.9-34.0 [facility] Comment on above: Performed By: #### B DOT NET ARCHITECT, CMP, HSTROPN #### [facility] [address] [place] [address] Dr. Miah Veloz MCHC (RBC) [Mass/Vol] 32.7 g/dL Normal 29.9-35.2 [facility] Comment on above: Performed By: #### B DOT NET ARCHITECT, CMP, HSTROPN #### [facility] [address] [place] [address] Dr. Miah Veloz MCV (RBC) [Entitic vol] 98.7 fL Critically high 80.0-94.0 [facility] Comment on above: Performed By: #### B DOT NET ARCHITECT, CMP, HSTROPN #### [facility] [address] [place] [address] Dr. Miah Veloz MONO # 0.7 103/ul Normal 0.3-0.8 [facility] Comment on above: Performed By: #### B DOT NET ARCHITECT, CMP, HSTROPN #### [facility] [address] [place] [address] Dr. Miah Veloz Monocytes/100 WBC (Bld) 9.1 % Normal 1.7-12.0 [facility] Comment on above: Performed By: #### B DOT NET ARCHITECT, CMP, HSTROPN #### [facility] [address] [place] [address] Dr. Miah Veloz NEUT # 4.6 103/ul Normal 1.4-6.5 [facility] Comment on above: Performed By: #### B DOT NET ARCHITECT, CMP, HSTROPN #### [facility] [address] [place] [address] Dr. Miah Veloz Neutrophils/100 WBC (Bld) 64.8 % Normal 43.0-75.0 [facility] Comment on above: Performed By: #### B DOT NET ARCHITECT, CMP, HSTROPN #### [facility] [address] [place] [address] Dr. Miah Veloz Platelet mean volume (Bld) [Entitic vol] 10.2 fL Normal 9.5-13.5 [facility] Comment on above: Performed By: #### B DOT NET ARCHITECT, CMP, HSTROPN #### [facility] [address] [place] [address] Dr. Miah Veloz PLT 200 103/ul Normal 150-450 [facility] Comment on above: Performed By: #### B DOT NET ARCHITECT, CMP, HSTROPN #### [facility] [address] [place] [address] Dr. iMah Veloz RBC 3.72 106/ul Critically low 4.70-6.10 [facility] Comment on above: Performed By: #### B DOT NET ARCHITECT, CMP, HSTROPN #### [facility] [address] [address] [address] Miah Veloz WBC 7.1 103/ul Normal 4.0-11.0 [facility] Comment on above: Performed By: #### B DOT NET ARCHITECT, CMP, HSTROPN #### [facility] [id number] Miah Veloz ECHOCARDIO M/2D COMPLETEon 0 04-27-2022 ECHOCARDIO M/2D COMPLETE Patient: GARRY STREETER Exam Date: 04/27/2022 : 1955 Gender:M Ordering : DR ANDREI ORONA . Admission #: [id number] Family : Order #: [id number] CLICK HERE TO VIEW EXAM ECHOCARDIOGRAM REPORT [...] Area(A4C): 22.40 cm2 Left Atrium Systolic Volume(A2C): 17544 mm3 Left Atrium Systolic Volume(A4C): 43556 mm3 Mitral Valve Mitral Valve E-Wave Peak [...] M.D. on 04/27/2022 at 16:58 Normal [facility] PROF CHEM 8 (BAS METB)on Anion gap [Moles/Vol] 13.3 mmol/L Normal [facility] Comment on above: Performed By: #### B MP #### [facility] [address] [place] [address] Dr. Miah Veloz Calcium [Mass/Vol] 8.2 mg/dL Critically low 8.5-10.1 [facility] Comment on above: Performed By: #### B MP #### [facility] [address] [place] [address] Dr. Miah Veloz Chloride [Moles/Vol] 107 mmol/L Normal 98-107 [facility] Comment on above: Performed By: #### B MP #### [facility] [address] [address] [address] Miah Veloz CO2 [Moles/Vol] 27.5 mmol/L Normal 21.0-32.0 [facility] Comment on above: Performed By: #### B MP #### [facility] [address] [address] [address] Miah Veloz Creatinine [Mass/Vol] 0.97 mg/dL Normal 0.70-1.30 [facility] Comment on above: Performed By: #### B MP #### [facility] [address] [address] [address] Miah Veloz EGFR-AF [place]IZ[place] >60 Normal >=60 [facility] Comment on above: Performed By: #### B MP #### [facility] [address] [address] [address] Miah Veloz EGFR-NON AF [place]IZ[place] >60 Normal >=60 [facility] Comment on above: Performed By: #### B MP #### [facility] [address] [address] [address] Miah Veloz Glucose [Mass/Vol] 102 mg/dL Normal 74-106 [facility] Comment on above: Performed By: #### B MP #### [facility] [address] [address] [address] Miah Veloz Potassium [Moles/Vol] 3.8 mmol/L Normal 3.5-5.1 [facility] Comment on above: Performed By: #### B MP #### [facility] [address] [address] [address] Miah Veloz Sodium [Moles/Vol] 144 mmol/L Normal 136-145 [facility] Comment on above: Performed By: #### B MP #### [facility] [address] [address] [address] Miah Veloz Urea nitrogen [Mass/Vol] 17.0 mg/dL Normal 7.0-18.0 [facility] Comment on above: Performed By: #### B MP #### [facility] [address] [place] [address] Dr. Miah Veloz Urea nitrogen/Creatinine [Mass ratio] 17.5 mg/mg Normal [facility] Comment on above: Performed By: #### B MP #### [facility] [address] [place] [address] Dr. Miah Veloz BNPon 04-26-2022 Natriuretic peptide B (Bld) [Mass/Vol] 1105.0 pg/mL Critically high <=900.0 [facility] Comment on above: Performed By: #### B DOT NET ARCHITECT, CMP, HSTROPN #### [facility] [address] [place] [address] Dr. Miah Veloz CBC AUTO DIFFon 04-26-2022 BASO # 0.0 103/ul Normal 0.0-0.1 [facility] Comment on above: Performed By: #### C BC #### [facility] [address] [place] [address] Dr. Miah Veloz Basophils/100 WBC (Bld) 0.6 % Normal 0.2-2.0 [facility] Comment on above: Performed By: #### C BC #### [facility] [address] [place] [address] Dr. Miah Veloz EO # 0.2 103/ul Normal 0.0-0.7 [facility] Comment on above: Performed By: #### C BC #### [facility] [address] [place] [address] Dr. Miah Veloz Eosinophils/100 WBC (Bld) 2.1 % Normal 0.9-7.0 [facility] Comment on above: Performed By: #### C BC #### [facility] [address] [place] [address] Dr. Miah Veloz Erythrocyte distribution width (RBC) [Ratio] 13.7 % Normal 11.0-15.0 [facility] Comment on above: Performed By: #### C BC #### [facility] [address] [place] [address] Dr. Miah Veloz Hematocrit (Bld) [Volume fraction] 39.3 % Critically low 42.0-54.0 [facility] Comment on above: Performed By: #### C BC #### [facility] [address] [place] [address] Dr. Miah Veloz Hemoglobin (Bld) [Mass/Vol] 13.0 g/dL Critically low 14.0-18.0 [facility] Comment on above: Performed By: #### C BC #### [facility] [address] [address] [address] Miah Veloz IG # 0.02 10e3/ul Normal 0.00-0.03 [facility] Comment on above: Performed By: #### C BC #### [facility] [address] [place] [address] Dr. Miah Veloz IG % 0.3 % Normal 0.0-0.5 [facility] Comment on above: Performed By: #### C BC #### [facility] [address] [place] [address] Dr. Miah Veloz LYMPH # 1.1 103/ul Critically low 1.2-3.8 [facility] Comment on above: Performed By: #### C BC #### [facility] [address] [place] [address] Dr. Miah Veloz Lymphocytes/100 WBC (Bld) 16.1 % Critically low 20.5-60.0 [facility] [facility] Comment on above: Performed By: #### C BC #### [facility] [address] [place] [address] Dr. Miah Veloz MANUAL DIFF REQ NO Normal [facility] Comment on above: Performed By: #### C BC #### [facility] [address] [address] [address] Miah Veloz MCH (RBC) [Entitic mass] 32.7 pg Normal 25.9-34.0 [facility] Comment on above: Performed By: #### C BC #### [facility] [address] [place] [address] Dr. Miah Veloz MCHC (RBC) [Mass/Vol] 33.1 g/dL Normal 29.9-35.2 [facility] Comment on above: Performed By: #### C BC #### [facility] [address] [place] [address] Dr. Miah Veloz MCV (RBC) [Entitic vol] 98.7 fL Critically high 80.0-94.0 [facility] Comment on above: Performed By: #### C BC #### [facility] [address] [place] [address] Dr. Miah Veloz MONO # 0.5 103/ul Normal 0.3-0.8 [facility] Comment on above: Performed By: #### C BC #### [facility] [address] [place] [address] Dr. Miah Veloz Monocytes/100 WBC (Bld) 7.6 % Normal 1.7-12.0 [facility] Comment on above: Performed By: #### C BC #### [facility] [address] [place] [address] Dr. Miah Veloz NEUT # 5.2 103/ul Normal 1.4-6.5 [facility] Comment on above: Performed By: #### C BC #### [facility] [address] [place] [address] Dr. Miah Veloz Neutrophils/100 WBC (Bld) 73.3 % Normal 43.0-75.0 [facility] Comment on above: Performed By: #### C BC #### [facility] [address] [place] [address] Dr. Miah Veloz Platelet mean volume (Bld) [Entitic vol] 10.7 fL Normal 9.5-13.5 [facility] Comment on above: Performed By: #### C BC #### [facility] [address] [place] [address] Dr. Miah Veloz PLT 200 103/ul Normal 150-450 [facility] Comment on above: Performed By: #### C BC #### [facility] [address] [place] [address] Dr. Miah Veloz RBC 3.98 106/ul Critically low 4.70-6.10 [facility] Comment on above: Performed By: #### C BC #### [facility] [address] [place], [place] [address] Dr. Miah Veloz WBC 7.1 103/ul Normal 4.0-11.0 [facility] Comment on above: Performed By: #### C BC #### [facility] [address] [place], [place] [address] Dr. Miah Veloz CTA CHEST WO W [...] Consider pulmonary edema Electronically authenticated by: NICK CABRALSE Date: 2022-04-26 10:50 Normal [facility] Covid-19 PCR (CVDTB)on SARS-CoV-2 (COVID-19) RNA GÓMEZ+probe Ql (Unsp spec) Not detected Normal NOT DETECTED [facility] Comment on above: Result Comment: [...] for this test is supported by the Campaign Manager of Health and Human Service's declaration that [...] longer be used). Performed By: #### B DOT NET ARCHITECT, CMP, HSTROPN #### [facility] [address] [place] [address] Dr. Miah Veloz PROF 14(COMP METB)on 022 Albumin [Mass/Vol] 3.1 g/dL Critically low 3.4-5.0 [facility] Comment on above: Performed By: #### B DOT NET ARCHITECT, CMP, HSTROPN #### [facility] [address] [place] [address] Dr. Miah Veloz Albumin/Globulin [Mass ratio] 0.9 {ratio} Normal [facility] Comment on above: Performed By: #### B DOT NET ARCHITECT, CMP, HSTROPN #### [facility] [address] [place] [address] Dr. Miah Veloz ALP [Catalytic activity/Vol] 54 U/L Normal 46-116 [facility] Comment on above: Performed By: #### B DOT NET ARCHITECT, CMP, HSTROPN #### [facility] [address] [place] [address] Dr. Miah Veloz ALT [Catalytic activity/Vol] 63 U/L Normal 16-63 [facility] Comment on above: Performed By: #### B DOT NET ARCHITECT, CMP, HSTROPN #### [facility] [address] [place] [address] Dr. Miah Veloz Anion gap [Moles/Vol] 13.9 mmol/L Normal [facility] Comment on above: Performed By: #### B DOT NET ARCHITECT, CMP, HSTROPN #### [facility] [address] [address] [address] Miah Veloz AST [Catalytic activity/Vol] 32 U/L Normal 15-37 [facility] Comment on above: Performed By: #### B DOT NET ARCHITECT, CMP, HSTROPN #### [facility] [address] [place] [address] Dr. Miah Veloz Calcium [Mass/Vol] 8.7 mg/dL Normal 8.5-10.1 [facility] Comment on above: Performed By: #### B DOT NET ARCHITECT, CMP, HSTROPN #### [facility] [address] [place] [address] Dr. Miah Veloz Chloride [Moles/Vol] 108 mmol/L Critically high 98-107 [facility] Comment on above: Performed By: #### B DOT NET ARCHITECT, CMP, HSTROPN #### [facility] [address] [place] [address] Dr. Miah Veloz CO2 [Moles/Vol] 24.3 mmol/L Normal 21.0-32.0 [facility] Comment on above: Performed By: #### B DOT NET ARCHITECT, CMP, HSTROPN #### [facility] [address] [place] [address] Dr. Miah Veloz Creatinine [Mass/Vol] 0.90 mg/dL Normal 0.70-1.30 [facility] Comment on above: Performed By: #### B DOT NET ARCHITECT, CMP, HSTROPN #### [facility] [address] [place] [address] Dr. Miah Veloz EGFR-AF CITIZEN [place] >60 Normal >=60 [facility] Comment on above: Performed By: #### B DOT NET ARCHITECT, CMP, HSTROPN #### [facility] [address] [place] [address] Dr. Miah Veloz EGFR-NON AF CITIZEN OF [place] >60 Normal >=60 [facility] Comment on above: Performed By: #### B DOT NET ARCHITECT, CMP, HSTROPN #### [facility] [address] [place] [address] Dr. Miah Veloz Globulin (S) [Mass/Vol] 3.6 g/dL Normal [facility] Comment on above: Performed By: #### B DOT NET ARCHITECT, CMP, HSTROPN #### [facility] [address] [address] [address] Miah Veloz Glucose [Mass/Vol] 146 mg/dL Critically high 74-106 [facility] Comment on above: Performed By: #### B DOT NET ARCHITECT, CMP, HSTROPN #### [facility] [address] [address] [address] Miah Veloz Potassium [Moles/Vol] 4.2 mmol/L Normal 3.5-5.1 [facility] Comment on above: Performed By: #### B DOT NET ARCHITECT, CMP, HSTROPN #### [facility] [address] [place] [address] Dr. Miah Veloz Protein [Mass/Vol] 6.7 g/dL Normal 6.4-8.2 [facility] Comment on above: Performed By: #### B DOT NET ARCHITECT, CMP, HSTROPN #### [facility] [address] [place] [address] Dr. Miah Veloz Sodium [Moles/Vol] 142 mmol/L Normal 136-145 [facility] Comment on above: Performed By: #### B DOT NET ARCHITECT, CMP, HSTROPN #### [facility] [address] [place] [address] Dr. Miah Veloz Urea nitrogen [Mass/Vol] 19.0 mg/dL Critically high 7.0-18.0 [facility] Comment on above: Performed By: #### B DOT NET ARCHITECT, CMP, HSTROPN #### [facility] [address] [address] [address] Miah Veloz Urea nitrogen/Creatinine [Mass ratio] 21.1 mg/mg Normal [facility] Comment on above: Performed By: #### B DOT NET ARCHITECT, CMP, HSTROPN #### [facility] [address] [place] [address] Dr. Miah Veloz PROTIMEon 04-26-2022 INR Coag (PPP) [Relative time] 1.20 {INR} Normal [facility] Comment on above: Performed By: #### B DOT NET ARCHITECT, CMP, HSTROPN #### [facility] [address] [place] [address] Dr. Miah Veloz INR GUIDELINES SEE BELOW Normal [facility] Comment on above: Result Comment: JENNIFER RED INR: 2.0 - 3.0 CONDITIONS NOT LISTED BELOW 2.5 - 3.5 FOR PROSTHETIC HEART VALVE REPLACEMENT 2.5 - 3.5 RECURRENT THROMBOSIS Performed By: #### B DOT NET ARCHITECT, CMP, HSTROPN #### [facility] [address] [address] [address] Miah Veloz PT Coag (PPP) [Time] 12.8 s Critically high 9.0-11.6 [facility] Comment on above: Performed By: #### B DOT NET ARCHITECT, CMP, HSTROPN #### [facility] [address] [place] [address] Dr. Miah Veloz PTTon 04-26-2022 aPTT Coag (Bld) [Time] 28.5 s Normal 22.3-36.2 [facility] Comment on above: Performed By: #### B DOT NET ARCHITECT, CMP, HSTROPN #### [facility] [address] [place] [address] Dr. Miah Veloz TROPONIN, HIGH SENSITIVITYon 04-26-2022 HSTROP 24.7 pg/mL Normal 4.0-76.1 [facility] Comment on above: Result Comment: CUT- OFF POINTS HAVE BEEN ESTABLISHED BASED ON THE FOURTH UNIVERSAL DEFINITIONS OF MYOCARDIAL INFARCTION. THE UPPER REFERENCE LIMIT (URL) OF TROPONIN, DEFINED THE 99TH PERCENTILE OF cTnI DISTRIBUTION IN A REFERENCE POPULATION, HAS BEEN CONFIRMED THE DECISION THRESHOLD FOR [place] DIAGNOSIS. Performed By: #### B DOT NET ARCHITECT, CMP, HSTROPN #### [facility] [address] [place] [address] Dr. Miah Veloz Encounters Encounter Date Encounter Type Care Provider Facility Start: 12-07-2023 End: 12-07-2023 ambulatory [facility] Start: 10-22-2023 End: 10-22-2023 ambulatory MEET [facility] Start: 08-30-2023 End: 08-30-2023 ambulatory MARTIN ADKINSLISET [facility] Start: 03-22-2023 End: 03-22-2023 ambulatory TACHO SHAYBARBARA [facility] Start: 03-01-2023 End: 03-02-2023 ambulatory SARAH JAMES Facility:[facility] Start: 02-03-2023 End: 02-03-2023 ambulatory SARAH DEL CASTILLOS [facility] Start: 01-15-2023 End: 01-16-2023 ambulatory LUZMA PHAM Facility:[facility] Start: 10-31-2022 Encounter for preprocedural laboratory examination DR [place]IA [place] . [facility] Start: 10-28-2022 End: 10-29-2022 ambulatory [place]AVIA [place] Facility:[facility] Start: 10-28-2022 End: 10-28-[address] [place] . Facility:[facility] Start: 10-24-2022 End: 10-25-[address] [place] . Facility:[facility] Start: 10-24-2022 End: 10-25-2022 Encounter for preprocedural laboratory examination DR TAVIA [place] . Facility:[facility] Start: 08-12-2022 Encounter for other preprocedural examination TACHO HOLLAND [facility] Start: 08-10-2022 End: 08-11-2022 ambulatory TACHO HOLLAND Facility:[facility] Start: 08-10-2022 End: 08-11-2022 Encounter for other preprocedural examination TACHO HOLLAND Facility:[facility] Start: 08-05-2022 End: 08-06-2022 ambulatory TACHO HOLLAND Facility:[facility] Start: 05-14-2022 End: 05-15-[address] DOCTOR FREED Facility:[facility] Start: 04-26-2022 End: 04-28-2022 Evaluation and management of inpatient NICK ARROYO HONDO Facility:[facility] Procedures Date Procedure Procedure Detail Performing Clinician Start: 03-22-2023 Follow-up visit Follow-up TACHO HOLLAND Payers Date Payer Category Payer Medicare [id number] 1961 Unknown [id number] 1955 Unknown [id number] 2.16.84 [id number] 1955 Unknown [id number] 2.16.84 [id number] 1955 Unknown [id number] 2.16.84 [id number] 1953 Unknown [id number] 2.16.84 [id number] 1953 Unknown [id number] 2.16.84 [id number] 1953 Unknown [id number] 2.16.84 [id number] 1953 Unknown [id number] 2.16.84 [id number] 1953 Unknown [id number] 2.16.84 [id number] 1955 Unknown [id number] 2.16.84 [id number] Clinical Notes 04-26-2022 to 12-07-2023 Note Date & Type Note Facility 12-07-2023 Note MD Cardiology Consul t Note Reason for Consultation: Afib Date of Telehealth Visit: 12/07/23 The patient was notified that using 3rd libertarian telecommunication application (e.g., [employer]) is not HIPPA compliant and may carry some privacy risks. Yes The visit was conducted cuvu-cu-beja with the use of audio and video [...] by tachyarrhythmia recently was admitted to the [facility] 10/08/2023 with A-fib RVR Has been noted [...] on exertion, leg (more content not included)... [facility] 10-22-2023 Note Patient here for [facility] for afib w/ RVR. He [...] All other systems reviewed and are negative. [facility] 10-22-2023 Note MD Cardiology Consul t Note Reason for Consultation: Afib 10/22/23: He is here for follow-up regarding his A-fib. He has history of nonischemic cardiomyopathy likely induced by tachyarrhythmia recently was admitted to the [facility] 10/08/2023 with A-fib RVR Has been noted [...] History: Diagnosis Date CHF (congestive heart failure) ([facility]) Dyspnea PAF (paroxysmal atrial fibrillation) ([facility]) Systolic heart failure ([facility]) PSH: No past surgical history on file. [...] direct anterior nasal( (more content not included)... [facility] 08-30-2023 Note [facility] CARDIOLOGY PROGR ESS NOTE HPI: Garry Streeter is a 68 y.o. male past medical history of heart failure improved ejection fraction, paroxysmal atrial fibrillation, hypertension, and valvular heart disease seen in follow-up. Update: 03/22/2023 Pt is here for med check F/U for [facility] pt states he stopped taking some of [...] Cardiac Cath Report 08/12/2022 Performing Physicians: -Tacho Holladn MD Procedures Performed: -Bilateral selective coronary angiography -Limited right radial and right subclavian angiography Final Impressions: -Patent coronary arteries Recommendations: -Optimization of medical management -Aggressive risk factor modification -Proceed with YOVANY/Cardioversion -Follow up with Cardiology as scheduled YOVANY/CV Conclusions: Biphasic cardio (more content not included)... [facility] 08-30-2023 Note Patient here for 6 m [...] All other systems reviewed and are negative. [facility] 03-22-2023 Note [facility]TP CARDIOLOGY PROGR ESS NOTE [...] normal. Mild aor (more content not included)... [facility] 02-03-2023 Note No edema today [facility] 02-03-2023 Note Stable [facility] 02-03-2023 Note EKG today-Sinus manny ycardia with PACs/PVCs- And artifact, Otherwise normal EKG He is adamant he is still taking Eliquis anticoagulation, Pharmacy denies that he is filled Eliquis or metoprolol in the last 6 months. Discussed with patient risk for stroke with paroxysmal atrial fib- He states he has cardia Monitor at home and he has not had any A-fib [facility] 02-03-2023 Note [facility] I-II Currently appears euvolemic, [...] Staff To obtain recent labs from PCP [facility] 02-03-2023 Note Pt is here for med c heck F/U fpr [facility] pt states he stop take some of his meds due to having Diarrhea more then 3 times a day pt also stated he was having problems walking due to gout. Review of Systems Gastrointestinal: Positive for diarrhea. All other systems reviewed and are negative. [facility] 02-03-2023 Note [facility]TP CARDIOLOGY PROGR ESS NOTE HPI: Garry Streeter is a 67 y.o. male here for Med Refill, Atrial Fibrillation, and Congestive Heart Failure Known h/o Chronic systolic heart failure, Paroxysmal atrial fib, edema, and noncompliance to med regimen. Pt is here for med check F/U for [facility] pt states he stopped taking some of [...] this time. Staff called pharmacy- [facility] and patient states this is his only [...] Right ventricular syst (more content not included)... [facility] 04-26-2022 Note PROCEDURE: XR KNEE L T 4V or > COMPARISON: None. HISTORY: Swelling FINDINGS: BONES:No fracture, acute abnormality, or significant arthropathy. SOFT TISSUES:Negative. No visible soft tissue swelling. EFFUSION:Moderate suprapatellar joint effusion OTHER: Negative. IMPRESSION: Moderate joint effusion Electronically authenticated by: NICK CABRALES Date: 2022-04-26 10:09 [facility] Summary Purpose Family History No Family History Records FoundNo Family History Records FoundNo Family History Records Found Advance Directives No Advanced Directives Records FoundNo Advanced Directives Records FoundNo Advanced Directives Records Found Additional Source Comments (unrecognized sect ion and content) No Status Records FoundNo Status Records FoundNo Status Records Found INFORMATION SOURCE (unrecogn ized section and content) DATE CREATED AUTHOR 10/30/2022 [facility] DATE CREATED AUTHOR AUTHOR'S ORGANIZ ATION 03/17/2023 [facility] DATE CREATED AUTHOR AUTHOR'S ORGANIZ ATION 12/22/2023 [facility] FOR RECORDS PERTAINING TO PATIENTS WHO [...] BE BASED ON THE PRIMARY CLINICAL RECORDS. [employer] provides no warranty or guarantee of the accuracy or completeness of information in this document.
[2024-01-12 12:39] LABS: Anion Gap 12.3; Calcium 9.2 mg/dL (8.5-10.1); Carbon Dioxide 27.9 mmol/L (21.0-32.0); Chloride 103 mmol/L (98-107); Estimated GFR (African America >60 (>=60); Estimated GFR (Non-African Ame >60 (>=60); Glucose 78 mg/dL (74-106); Potassium 4.2 mmol/L (3.5-5.1); Sodium 139 mmol/L (136-145)
[2024-01-12 13:03] LABS: Basophils Absolute Auto 0.1 10^3/uL (0.0-0.1); Basophils Percent Auto 1.5 % (0.2-2.0); Eosinophils Absolute Auto 0.4 10^3/uL (0.0-0.7); Eosinophils Percent Auto 7.4 % (0.9-7.0); Hematocrit 40.3 % (42.0-54.0); Hemoglobin 13.9 g/dL (14.0-18.0); Immature Granulocytes Abs Auto 0.04 10^3/uL (0.00-0.03); Immature Granulocytes Pct Auto 0.7 % (0.0-0.5); Lymphocytes Absolute Auto 1.4 10^3/uL (1.2-3.8); Lymphocytes Percent Auto 25.3 % (20.5-60.0); Mean Corpuscular HGB Conc 34.5 g/dL (29.9-35.2); Mean Corpuscular Hemoglobin 32.9 pg (25.9-34.0); Mean Corpuscular Volume 95.3 fL (80.0-94.0); Mean Platelet Volume 9.6 fL (9.5-13.5); Monocytes Absolute Auto 0.6 10^3/uL (0.3-0.8); Monocytes Percent Auto 11.6 % (1.7-12.0); Neutrophils Absolute Auto 2.9 10^3/uL (1.4-6.5); Neutrophils Percent Auto 53.5 % (43.0-75.0); Platelet Count 173 10^3/uL (150-450); Red Blood Count 4.23 10^6/uL (4.70-6.10); Red Cell Distribution Width 14.2 % (11.0-15.0); White Blood Count 5.4 10^3/uL (4.0-11.0)
== END 2024-01-12 12:06 | disposition home or self-care (01) ==
LOC: CARD 12:06
PROVIDERS: PCP Nurse Practitioner Primary Care; Visit Provider Internal Medicine Cardiovascular Disease
DX: Z12.5 Encounter for screening for malignant neoplasm of prostate (principal); I48.0 Paroxysmal atrial fibrillation; I48.4 Atypical atrial flutter; I50.22 Chronic systolic (congestive) heart failure
CPT/HCPCS: 36415; 80048; 85025; G0103

== ENCOUNTER 2024-01-13 08:47 | Outpatient (OUT) | payer BC, SELFPAY ==
--- OUTSIDE RECORDS SUMMARY | 2024-01-13 08:56 | XMS_ITS | CCD ---
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; Translations: [MCC CURRNT USE ANTICOAGULANTS] Onset: 11-01-2022 Episodic Other [...] Prep for Procedureon 024 Prep for Procedure [id number] Garry Streeter 1955 Date Provider Department Center 12/14/20231986-BLAKE JASON [facility] Family History Problem Relation Age of Onset Colon cancer Brother Family Status - Relation Status Age at Brother Normal [facility] Orders Onlyon 12-13-2023 Orders Only [id number] Garry Streeter 1955 Date Provider Department Center 12/13/2023 SYLVESTER ORELLANA [facility] Family History Problem Relation Age of Onset Colon cancer Brother Family Status - Relation Status Age at Brother Normal [facility] Telemedicineon 12-07-2023 Telemedicine [id number] Garry Streeter 1955 [facility] Provider Department [place] 12/07/2023 Kenneth-EMILY LARSON [facility] Family History Problem Relation Age of Onset Colon cancer Brother Family Status - Relation Status Age at Brother Level of Service:60526 [place] PHYS/QHP TELEPHONE EVALUATION 11-20 MIN [facility] 36on 11-05-2023 36 I dont see a specifi c reason why he could not be started on it so should be fine Normal [facility] Telephoneon 11-04-2023 Telephone [id number] Garry Streeter 1955 [facility] Department [place] 11/04/2023 Damian-MONICA DACOSTA CARD [facility] Family History Problem Relation Age of Onset Colon cancer Brother Family Status - Relation Status Age at Brother Normal [facility] Office Visiton 10-22-2023 Follow-up visit [id number] Angeles 1955 [facility] Provider Department [place] 10/22/2023 Chencho-MEET LEE CARD [facility] Family History Problem Relation Age of Onset Colon cancer Brother Family Status - Relation Status Age at Brother Level of Service:57969 [place] OFFICE/OUTPATIENT ESTABLISHED MOD MDM 30 MIN Normal [facility] Office Visiton 08-30-2023 Follow-up visit [id number] Angeles 1955 [facility] Provider Department [place] 08/30/2023 [id number] SPENCER CARD [facility] Family History Problem Relation Age of Onset Colon cancer Brother Family Status - Relation Status Age at Brother Level of Service:10406 [place] OFFICE/OUTPATIENT ESTABLISHED MOD MDM 30-39 MIN Normal [facility] Office Visiton 03-22-2023 Follow-up visit [id number] Angeles 1955 M Date Provider Department Center 03/22/2023 3848-TACHO HOLLAND CARD Esha Champion Family History Problem Relation Age of Onset Colon cancer Brother Family Status - Relation Status Age at Brother Level of Service:38726 [place] OFFICE/OUTPATIENT ESTABLISHED MOD MDM 30-39 MIN Reason for Visit and Comments: Follow-up [215115] - f/u echo Normal [facility] ECHOCARDIO M/2D COMPLETEon 0 03-01-2023 ECHOCARDIO M/2D COMPLETE Patient: GARRY STREETER Exam Date: 03/01/2023 : 1955 Gender:M Ordering : SARAH RAMIREZ Admission #: [id number] Family : WARREN JOYNER RADIOGRAPHER TECHNOLOGIST-C Order #: [id number] CLICK HERE TO VIEW EXAM ECHOCARDIOGRAM REPORT [...] at 09:21 Normal [facility] Office Visiton 02-03-2023 Follow-up visit [id number] Garry Streeter 1955 M Date Provider Department Center 02/03/2023 Sean-SARAH RAMIREZ CARD [facility] Family History Problem Relation Age of Onset Colon cancer Brother Family Status - Relation Status Age at Brother Level of Service:45608 [place] OFFICE/OUTPATIENT ESTABLISHED MOD MDM 30-39 MIN Reason for Visit and Comments: Med Refill [766066] Atrial Fibrillation [80] Congestive Heart Failure [127] Normal [facility] BNPon 01-15-2023 Natriuretic peptide B (Bld) [Mass/Vol] 20.0 pg/mL Normal <=900.0 [facility] Comment on above: Performed By: #### B RADIOGRAPHER TECHNOLOGIST, MG, CMP #### [facility] [address] [place] [address] Dr. Miah Veloz HEMOGRAM AND PLATELon 2022 Hematocrit (Bld) [Volume fraction] 41.3 % Critically low 42.0-54.0 [facility] Comment on above: Performed By: #### B RADIOGRAPHER TECHNOLOGIST, CMP, HSTROPN #### [facility] [address] [address] [address] Miah Veloz Hemoglobin (Bld) [Mass/Vol] 14.2 g/dL Normal 14.0-18.0 [facility] Comment on above: Performed By: #### B RADIOGRAPHER TECHNOLOGIST, CMP, HSTROPN #### [facility] [address] [address] [address] Miah Veloz MCH (RBC) [Entitic mass] 31.5 pg Normal 25.9-34.0 [facility] Comment on above: Performed By: #### B RADIOGRAPHER TECHNOLOGIST, CMP, HSTROPN #### [facility] [address] [place] [address] Dr. Miah Veloz MCHC (RBC) [Mass/Vol] 34.4 g/dL Normal 29.9-35.2 [facility] Comment on above: Performed By: #### B RADIOGRAPHER TECHNOLOGIST, CMP, HSTROPN #### [facility] [address] [place] [address] Dr. Miah Veloz MCV (RBC) [Entitic vol] 91.6 fL Normal 80.0-94.0 [facility] Comment on above: Performed By: #### B RADIOGRAPHER TECHNOLOGIST, CMP, HSTROPN #### [facility] [address] [place] [address] Dr. Miah Veloz PLT 173 103/ul Normal 150-450 [facility] Comment on above: Performed By: #### B RADIOGRAPHER TECHNOLOGIST, CMP, HSTROPN #### [facility] [address] [place] [address] Dr. Miah Veloz RBC 4.51 106/ul Critically low 4.70-6.10 [facility] Comment on above: Performed By: #### B RADIOGRAPHER TECHNOLOGIST, CMP, HSTROPN #### [facility] [address] [place] [address] Dr. Miah Veloz WBC 5.8 103/ul Normal 4.0-11.0 [facility] Comment on above: Performed By: #### B RADIOGRAPHER TECHNOLOGIST, CMP, HSTROPN #### [facility] [address] [place] [address] Dr. Miah Veloz MAGNESIUMon 01-15-2023 Magnesium [Mass/Vol] 1.9 mg/dL Normal 1.8-2.4 [facility] Comment on above: Performed By: #### B RADIOGRAPHER TECHNOLOGIST, MG, CMP #### [facility] [address] [place] [address] Dr. Miah Veloz PROF 14(COMP METB)on 023 Albumin [Mass/Vol] 3.8 g/dL Normal 3.4-5.0 [facility] Comment on above: Performed By: #### B RADIOGRAPHER TECHNOLOGIST, MG, CMP #### [facility] [address] [place] [address] Dr. Miah Veloz Albumin/Globulin [Mass ratio] 0.9 {ratio} Normal [facility] Comment on above: Performed By: #### B RADIOGRAPHER TECHNOLOGIST, MG, CMP #### [facility] [address] [address] [address] Miah Veloz ALP [Catalytic activity/Vol] 86 U/L Normal 46-116 [facility] Comment on above: Performed By: #### B RADIOGRAPHER TECHNOLOGIST, MG, CMP #### [facility] [address] [address] [address] Miah Veloz ALT [Catalytic activity/Vol] 26 U/L Normal 16-63 [facility] Comment on above: Performed By: #### B RADIOGRAPHER TECHNOLOGIST, MG, CMP #### [facility] [address] [address] [address] Miah Veloz Anion gap [Moles/Vol] 11.3 mmol/L Normal [facility] Comment on above: Performed By: #### B RADIOGRAPHER TECHNOLOGIST, MG, CMP #### [facility] [address] [place] [address] Dr. Miah Veloz AST [Catalytic activity/Vol] 18 U/L Normal 15-37 [facility] Comment on above: Performed By: #### B RADIOGRAPHER TECHNOLOGIST, MG, CMP #### [facility] [address] [address] [address] Miah Veloz Bilirubin [Mass/Vol] 0.6 mg/dL Normal 0.2-1.0 [facility] Comment on above: Performed By: #### B RADIOGRAPHER TECHNOLOGIST, MG, CMP #### [facility] [address] [place] [address] Dr. Miah Veloz Calcium [Mass/Vol] 9.4 mg/dL Normal 8.5-10.1 [facility] Comment on above: Performed By: #### B RADIOGRAPHER TECHNOLOGIST, MG, CMP #### [facility] [address] [place] [address] Dr. Miah Veloz Chloride [Moles/Vol] 105 mmol/L Normal 98-107 [facility] Comment on above: Performed By: #### B RADIOGRAPHER TECHNOLOGIST, MG, CMP #### [facility] [address] [address] [address] Miah Veloz CO2 [Moles/Vol] 30.2 mmol/L Normal 21.0-32.0 [facility] Comment on above: Performed By: #### B RADIOGRAPHER TECHNOLOGIST, MG, CMP #### [facility] [address] [address] [address] Miah Veloz Creatinine [Mass/Vol] 0.88 mg/dL Normal 0.70-1.30 [facility] Comment on above: Performed By: #### B RADIOGRAPHER TECHNOLOGIST, MG, CMP #### [facility] [address] [address] [address] Miah Veloz EGFR-AF CITIZEN [place] >60 Normal >=60 [facility] Comment on above: Performed By: #### B RADIOGRAPHER TECHNOLOGIST, MG, CMP #### [facility] [address] [address] [address] Miah Veloz EGFR-NON AF CITIZEN OF [place] >60 Normal >=60 [facility] Comment on above: Performed By: #### B RADIOGRAPHER TECHNOLOGIST, MG, CMP #### [facility] [address] [address] [address] Miah Veloz Globulin (S) [Mass/Vol] 4.1 g/dL Normal [facility] Comment on above: Performed By: #### B RADIOGRAPHER TECHNOLOGIST, MG, CMP #### [facility] [address] [address] [address] Miah Veloz Glucose [Mass/Vol] 98 mg/dL Normal 74-106 [facility] Comment on above: Performed By: #### B RADIOGRAPHER TECHNOLOGIST, MG, CMP #### [facility] [address] [address] [address] Miah Veloz Potassium [Moles/Vol] 4.5 mmol/L Normal 3.5-5.1 [facility] Comment on above: Performed By: #### B RADIOGRAPHER TECHNOLOGIST, MG, CMP #### [facility] [address] [address] [address] Miah Veloz Protein [Mass/Vol] 7.9 g/dL Normal 6.4-8.2 [facility] Comment on above: Performed By: #### B RADIOGRAPHER TECHNOLOGIST, MG, CMP #### [facility] [address] [address] [address] Miah Veloz Sodium [Moles/Vol] 142 mmol/L Normal 136-145 [facility] Comment on above: Performed By: #### B RADIOGRAPHER TECHNOLOGIST, MG, CMP #### [facility] [address] [address] [address] Miah Veloz Urea nitrogen [Mass/Vol] 15.0 mg/dL Normal 7.0-18.0 [facility] Comment on above: Performed By: #### B RADIOGRAPHER TECHNOLOGIST, MG, CMP #### [facility] [address] [address] [address] Miah Veloz Urea nitrogen/Creatinine [Mass ratio] 17.0 mg/mg Normal [facility] Comment on above: Performed By: #### B RADIOGRAPHER TECHNOLOGIST, MG, CMP #### [facility] [id number] Miah Veloz XR CHEST 2 Von [...] by: LUZMA PHAM Date: 2023-01-15 12:47 Normal [facility] SURGICAL PATH REPORTon 10-29 SURGICAL PATH REPORT [facility] Department of Pathology [address] [place] [id number] Name: GARRY STREETER : 1955 [facility] [id number] Number: Gender Male Locatio [employer] : n: Admit 67 years Attending TAVIA [place] Age: Provider: Ordering TAVIA [place] Provider: Consulti Surgical Pathology Report ng: ACCESSION: COLLECTED DATE/TIME: RECEIVED DATE/TIME: PATHOLOGIST: [id number] 10/28/2022 11:24 EST 10/28/2022 11:24 EST MATT PELAEZ MD Final Diagnosis Report for [facility], [place], [place] (A) SIGMOID POLYP AT 40 CM: [...] ____ Print 10/29/2022 14:17 EST Number: Date/Time: [facility] Department of Pathology [address] [place], [place] [id number] Name: GARRY STREETER : 1955 [facility] [id number] Number: Gender Male [facility] : n: Admit 67 years Attending TAVIA [place] Age: Provider: Ordering TAVIA [place] Provider: Consulti Surgical Pathology Report ng: ACCESSION: COLLECTED DATE/TIME: RECEIVED DATE/TIME: PATHOLOGIST: [id number] 10/28/2022 11:24 EST 10/28/2022 11:24 EST MATT [...] MP/ald 10/28/2022 Tissue pathology report for: [facility], [address] [place] [address]; PATHOLOGY SERVICES PROVIDED BY [facility] , [facility] (CLIA #[id number]) in cooperation with [facility] at [address] [place] [address] ( CLIA #[id number]) Codes CPT CODE: 64129D7 ____ Print 10/29/2022 14:17 EST Number: Date/Time: Normal [facility] Comment on above: Performed By: #### [id number] #### [facility] Laboratory Services [address] [place] [address] Retail Assistant: Matt Pelaez MD Covid-19 PCR (CVDTB)on SARS-CoV-2 (COVID-19) RNA GÓMEZ+probe Ql (Unsp spec) Not detected Normal NOT DETECTED [facility] Comment on above: Result Comment: This test is not yet approved or cleared by the [place] FDA. When there are no FDA-approved or cleared tests available, and other criteria are met, FDA can make tests available under an emergency access mechanism called an Emergency Use Authorization (EUA). The EUA for this test is supported by the [place] of Health and Human Service's (HHS's) declaration [...] SARS-CoV-2. Performed By: #### C VDTBH #### [facility] [address] [place] [address] Dr. Miah Veloz CBC AUTO DIFFon 08-10-2022 BASO # 0.1 103/ul Normal 0.0-0.1 [facility] Comment on above: Performed By: #### B RADIOGRAPHER TECHNOLOGIST, CMP, HSTROPN #### [facility] [address] [place] [address] Dr. Miah Veloz Basophils/100 WBC (Bld) 0.7 % Normal 0.2-2.0 [facility] Comment on above: Performed By: #### B RADIOGRAPHER TECHNOLOGIST, CMP, HSTROPN #### [facility] [address] [place] [address] Dr. Miah Veloz EO # 0.4 103/ul Normal 0.0-0.7 [facility] Comment on above: Performed By: #### B RADIOGRAPHER TECHNOLOGIST, CMP, HSTROPN #### [facility] [address] [place] [address] Dr. Miah Veloz Eosinophils/100 WBC (Bld) 4.1 % Normal 0.9-7.0 [facility] Comment on above: Performed By: #### B RADIOGRAPHER TECHNOLOGIST, CMP, HSTROPN #### [facility] [address] [place] [address] Dr. Miah Veloz Erythrocyte distribution width (RBC) [Ratio] 16.0 % Critically high 11.0-15.0 [facility] Comment on above: Performed By: #### B RADIOGRAPHER TECHNOLOGIST, CMP, HSTROPN #### [facility] [address] [place] [address] Dr. Miah Veloz Hematocrit (Bld) [Volume fraction] 41.2 % Critically low 42.0-54.0 [facility] Comment on above: Performed By: #### B RADIOGRAPHER TECHNOLOGIST, CMP, HSTROPN #### [facility] [address] [place] [address] Dr. Miah Veloz Hemoglobin (Bld) [Mass/Vol] 14.1 g/dL Normal 14.0-18.0 [facility] Comment on above: Performed By: #### B RADIOGRAPHER TECHNOLOGIST, CMP, HSTROPN #### [facility] [address] [place] [address] Dr. Miah Veloz IG # 0.03 10e3/ul Normal 0.00-0.03 [facility] Comment on above: Performed By: #### B RADIOGRAPHER TECHNOLOGIST, CMP, HSTROPN #### [facility] [address] [place] [address] Dr. Miah Veloz IG % 0.3 % Normal 0.0-0.5 [facility] Comment on above: Performed By: #### B RADIOGRAPHER TECHNOLOGIST, CMP, HSTROPN #### [facility] [address] [place] [address] Dr. Miah Veloz LYMPH # 2.8 103/ul Normal 1.2-3.8 [facility] Comment on above: Performed By: #### B RADIOGRAPHER TECHNOLOGIST, CMP, HSTROPN #### [facility] [address] [place] [address] Dr. Miah Veloz Lymphocytes/100 WBC (Bld) 28.5 % Normal 20.5-60.0 [facility] Comment on above: Performed By: #### B RADIOGRAPHER TECHNOLOGIST, CMP, HSTROPN #### [facility] [address] [place] [address] Dr. Miah Veloz MANUAL DIFF REQ NO Normal [facility] Comment on above: Performed By: #### B RADIOGRAPHER TECHNOLOGIST, CMP, HSTROPN #### [facility] [address] [place] [address] Dr. Miah Veloz MCH (RBC) [Entitic mass] 32.4 pg Normal 25.9-34.0 [facility] Comment on above: Performed By: #### B RADIOGRAPHER TECHNOLOGIST, CMP, HSTROPN #### [facility] [address] [place] [address] Dr. Miah Veloz MCHC (RBC) [Mass/Vol] 34.2 g/dL Normal 29.9-35.2 [facility] Comment on above: Performed By: #### B RADIOGRAPHER TECHNOLOGIST, CMP, HSTROPN #### [facility] [address] [place] [address] Dr. Miah Veloz MCV (RBC) [Entitic vol] 94.7 fL Critically high 80.0-94.0 [facility] Comment on above: Performed By: #### B RADIOGRAPHER TECHNOLOGIST, CMP, HSTROPN #### [facility] [address] [place] [address] Dr. Miah Veloz MONO # 0.8 103/ul Normal 0.3-0.8 [facility] Comment on above: Performed By: #### B RADIOGRAPHER TECHNOLOGIST, CMP, HSTROPN #### [facility] [address] [place] [address] Dr. Miah Veloz Monocytes/100 WBC (Bld) 7.6 % Normal 1.7-12.0 [facility] Comment on above: Performed By: #### B RADIOGRAPHER TECHNOLOGIST, CMP, HSTROPN #### [facility] [address] [place] [address] Dr. Miah Veloz NEUT # 5.8 103/ul Normal 1.4-6.5 [facility] Comment on above: Performed By: #### B RADIOGRAPHER TECHNOLOGIST, CMP, HSTROPN #### [facility] [address] [place] [address] Dr. Miah Veloz Neutrophils/100 WBC (Bld) 58.8 % Normal 43.0-75.0 [facility] Comment on above: Performed By: #### B RADIOGRAPHER TECHNOLOGIST, CMP, HSTROPN #### [facility] [address] [place] [address] Dr. Miah Veloz Platelet mean volume (Bld) [Entitic vol] 10.3 fL Normal 9.5-13.5 [facility] Comment on above: Performed By: #### B RADIOGRAPHER TECHNOLOGIST, CMP, HSTROPN #### [facility] [address] [address] [address] Miah Veloz PLT 184 103/ul Normal 150-450 [facility] Comment on above: Performed By: #### B RADIOGRAPHER TECHNOLOGIST, CMP, HSTROPN #### [facility] [address] [address] [address] Miah Veloz RBC 4.35 106/ul Critically low 4.70-6.10 [facility] Comment on above: Performed By: #### B RADIOGRAPHER TECHNOLOGIST, CMP, HSTROPN #### [facility] [address] [place] [address] Dr. Miah Veloz WBC 9.9 103/ul Normal 4.0-11.0 [facility] Comment on above: Performed By: #### B RADIOGRAPHER TECHNOLOGIST, CMP, HSTROPN #### [facility] [address] [place] [address] Dr. Miah Veloz PROF CHEM 8 (BAS METB)on Anion gap [Moles/Vol] 13.2 mmol/L Normal [facility] Comment on above: Performed By: #### B RADIOGRAPHER TECHNOLOGIST, CMP, HSTROPN #### [facility] [address] [place] [address] Dr. Miah Veloz Calcium [Mass/Vol] 8.8 mg/dL Normal 8.5-10.1 [facility] Comment on above: Performed By: #### B RADIOGRAPHER TECHNOLOGIST, CMP, HSTROPN #### [facility] [address] [place] [address] Dr. Miah Veloz Chloride [Moles/Vol] 107 mmol/L Normal 98-107 [facility] Comment on above: Performed By: #### B RADIOGRAPHER TECHNOLOGIST, CMP, HSTROPN #### [facility] [address] [place] [address] Dr. Miah Veloz CO2 [Moles/Vol] 25.5 mmol/L Normal 21.0-32.0 [facility] Comment on above: Performed By: #### B RADIOGRAPHER TECHNOLOGIST, CMP, HSTROPN #### [facility] [address] [address] [address] Miah Veloz Creatinine [Mass/Vol] 1.37 mg/dL Critically high 0.70-1.30 [facility] Comment on above: Performed By: #### B RADIOGRAPHER TECHNOLOGIST, CMP, HSTROPN #### [facility] [address] [place] [address] Dr. Miah Veloz EGFR-AF CITIZEN [place] >60 Normal >=60 [facility] Comment on above: Performed By: #### B RADIOGRAPHER TECHNOLOGIST, CMP, HSTROPN #### [facility] [address] [place] [address] Dr. Miah Veloz EGFR-NON AF CITIZEN OF [place] 52 mL/min/1.73m2 Critically low >=60 [facility] Comment on above: Performed By: #### B RADIOGRAPHER TECHNOLOGIST, CMP, HSTROPN #### [facility] [address] [place] [address] Dr. Miah Veloz Glucose [Mass/Vol] 103 mg/dL Normal 74-106 [facility] Comment on above: Performed By: #### B RADIOGRAPHER TECHNOLOGIST, CMP, HSTROPN #### [facility] [address] [address] [address] Miah Veloz Potassium [Moles/Vol] 4.7 mmol/L Normal 3.5-5.1 [facility] Comment on above: Performed By: #### B RADIOGRAPHER TECHNOLOGIST, CMP, HSTROPN #### [facility] [address] [place] [address] Dr. Miah Veloz Sodium [Moles/Vol] 141 mmol/L Normal 136-145 [facility] Comment on above: Performed By: #### B RADIOGRAPHER TECHNOLOGIST, CMP, HSTROPN #### [facility] [address] [address] [address] Miah Veloz Urea nitrogen [Mass/Vol] 32.0 mg/dL Critically high 7.0-18.0 [facility] Comment on above: Performed By: #### B RADIOGRAPHER TECHNOLOGIST, CMP, HSTROPN #### [facility] [address] [place], [place] [address] Dr. Miah Veloz Urea nitrogen/Creatinine [Mass ratio] 23.4 mg/mg Normal [facility] Comment on above: Performed By: #### B RADIOGRAPHER TECHNOLOGIST, CMP, HSTROPN #### [facility] [address] [place], [place] [address] Dr. Miah Veloz ECHOCARDIO M/2D COMPLETEon 0 08-05-2022 ECHOCARDIO M/2D COMPLETE Patient: GARRY STREETER Exam Date: 08/05/2022 : 1955 Gender:M Ordering : TACHO HOLLAND Admission #: [id number] Family : Order #: [id number] CLICK HERE TO VIEW EXAM ECHOCARDIOGRAM REPORT [...] m/s Pulmonic Valve Right [facility]rium Dictated by: Justne Baumann M.D. on 08/05/2022 at 14:29 Approved by: Justen Baumann M.D. on 08/05/2022 at 14:32 Normal [facility] PROF 14(COMP METB)on 022 Albumin [Mass/Vol] 3.4 g/dL Normal 3.4-5.0 [facility] Comment on above: Performed By: #### B RADIOGRAPHER TECHNOLOGIST, CMP, HSTROPN #### [facility] [address] [place] [address] Dr. Miah Veloz Albumin/Globulin [Mass ratio] 0.9 {ratio} Normal [facility] Comment on above: Performed By: #### B RADIOGRAPHER TECHNOLOGIST, CMP, HSTROPN #### [facility] [address] [address] [address] Miah Veloz ALP [Catalytic activity/Vol] 73 U/L Normal 46-116 [facility] Comment on above: Performed By: #### B RADIOGRAPHER TECHNOLOGIST, CMP, HSTROPN #### [facility] [address] [address] [address] Miah Veloz ALT [Catalytic activity/Vol] 31 U/L Normal 16-63 [facility] Comment on above: Performed By: #### B RADIOGRAPHER TECHNOLOGIST, CMP, HSTROPN #### [facility] [address] [address] [address] Miah Veloz Anion gap [Moles/Vol] 13.6 mmol/L Normal [facility] Comment on above: Performed By: #### B RADIOGRAPHER TECHNOLOGIST, CMP, HSTROPN #### [facility] [address] [address] [address] Miah Veloz AST [Catalytic activity/Vol] 14 U/L Critically low 15-37 [facility] Comment on above: Performed By: #### B RADIOGRAPHER TECHNOLOGIST, CMP, HSTROPN #### [facility] [address] [address] [address] Miah Veloz Bilirubin [Mass/Vol] 0.6 mg/dL Normal 0.2-1.0 [facility] Comment on above: Performed By: #### B RADIOGRAPHER TECHNOLOGIST, CMP, HSTROPN #### [facility] [address] [address] [address] Miah Veloz Calcium [Mass/Vol] 8.8 mg/dL Normal 8.5-10.1 [facility] Comment on above: Performed By: #### B RADIOGRAPHER TECHNOLOGIST, CMP, HSTROPN #### [facility] [address] [address] [address] Miah Veloz Chloride [Moles/Vol] 105 mmol/L Normal 98-107 [facility] Comment on above: Performed By: #### B RADIOGRAPHER TECHNOLOGIST, CMP, HSTROPN #### [facility] [address] [place] [address] Dr. Miah Veloz CO2 [Moles/Vol] 27.7 mmol/L Normal 21.0-32.0 [facility] Comment on above: Performed By: #### B RADIOGRAPHER TECHNOLOGIST, CMP, HSTROPN #### [facility] [address] [address] [address] Miah Veloz Creatinine [Mass/Vol] 1.17 mg/dL Normal 0.70-1.30 [facility] Comment on above: Performed By: #### B RADIOGRAPHER TECHNOLOGIST, CMP, HSTROPN #### [facility] [address] [address] [address] Miah Veloz EGFR-AF CITIZEN OF [place] >60 Normal >=60 [facility] Comment on above: Performed By: #### B RADIOGRAPHER TECHNOLOGIST, CMP, HSTROPN #### [facility] [address] [address] [address] Miah Veloz EGFR-NON AF CITIZEN OF [place] >60 Normal >=60 [facility] Comment on above: Performed By: #### B RADIOGRAPHER TECHNOLOGIST, CMP, HSTROPN #### [facility] [address] [address] [address] Miah Veloz Globulin (S) [Mass/Vol] 3.9 g/dL Normal [facility] Comment on above: Performed By: #### B RADIOGRAPHER TECHNOLOGIST, CMP, HSTROPN #### [facility] [address] [place] [address] Dr. Miah Veloz Glucose [Mass/Vol] 138 mg/dL Critically high 74-106 [facility] Comment on above: Performed By: #### B RADIOGRAPHER TECHNOLOGIST, CMP, HSTROPN #### [facility] [address] [place] [address] Dr. Miah Veloz Potassium [Moles/Vol] 4.3 mmol/L Normal 3.5-5.1 [facility] Comment on above: Performed By: #### B RADIOGRAPHER TECHNOLOGIST, CMP, HSTROPN #### [facility] [address] [place] [address] Dr. Miah Veloz Protein [Mass/Vol] 7.3 g/dL Normal 6.4-8.2 [facility] Comment on above: Performed By: #### B RADIOGRAPHER TECHNOLOGIST, CMP, HSTROPN #### [facility] [address] [place] [address] Dr. Miah Veloz Sodium [Moles/Vol] 142 mmol/L Normal 136-145 [facility] Comment on above: Performed By: #### B RADIOGRAPHER TECHNOLOGIST, CMP, HSTROPN #### [facility] [address] [place] [address] Dr. Miah Veloz Urea nitrogen [Mass/Vol] 25.0 mg/dL Critically high 7.0-18.0 [facility] Comment on above: Performed By: #### B RADIOGRAPHER TECHNOLOGIST, CMP, HSTROPN #### [facility] [address] [address] [address] Miah Veloz Urea nitrogen/Creatinine [Mass ratio] 21.4 mg/mg Normal [facility] Comment on above: Performed By: #### B RADIOGRAPHER TECHNOLOGIST, CMP, HSTROPN #### [facility] [address] [address] [address] Miah Veloz US BRANDO DOP LEG [...] MURPHY GRIFFIN Date: 2022-05-14 16:51 Normal [facility] CBC AUTO DIFFon 04-28-2022 BASO # 0.1 103/ul Normal 0.0-0.1 [facility] Comment on above: Performed By: #### C BC #### [facility] [address] [address] [address] Miah Veloz Basophils/100 WBC (Bld) 0.7 % Normal 0.2-2.0 [facility] Comment on above: Performed By: #### C BC #### [facility] [address] [address] [address] Miah Veloz EO # 0.2 103/ul Normal 0.0-0.7 [facility] Comment on above: Performed By: #### C BC #### [facility] [address] [address] [address] Miah Veloz Eosinophils/100 WBC (Bld) 2.9 % Normal 0.9-7.0 [facility] Comment on above: Performed By: #### C BC #### [facility] [address] [place] [address] Dr. Miah Veloz Erythrocyte distribution width (RBC) [Ratio] 13.2 % Normal 11.0-15.0 [facility] Comment on above: Performed By: #### C BC #### [facility] [address] [place] [address] Dr. Miah Veloz Hematocrit (Bld) [Volume fraction] 36.9 % Critically low 42.0-54.0 [facility] Comment on above: Performed By: #### C BC #### [facility] [address] [place] [address] Dr. Miah Veloz Hemoglobin (Bld) [Mass/Vol] 12.4 g/dL Critically low 14.0-18.0 [facility] Comment on above: Performed By: #### C BC #### [facility] [address] [place] [address] Dr. Miah Veloz IG # 0.03 10e3/ul Normal 0.00-0.03 [facility] Comment on above: Performed By: #### C BC #### [facility] [address] [place] [address] Dr. Miah Veloz IG % 0.4 % Normal 0.0-0.5 [facility] Comment on above: Performed By: #### C BC #### [facility] [address] [place] [address] Dr. Miah Veloz LYMPH # 1.8 103/ul Normal 1.2-3.8 [facility] Comment on above: Performed By: #### C BC #### [facility] [address] [place] [address] Dr. Miah Veloz Lymphocytes/100 WBC (Bld) 23.0 % Normal 20.5-60.0 [facility] Comment on above: Performed By: #### C BC #### [facility] [address] [place] [address] Dr. Miah Veloz MANUAL DIFF REQ NO Normal [facility] Comment on above: Performed By: #### C BC #### [facility] [address] [place] [address] Dr. Miah Veloz MCH (RBC) [Entitic mass] 32.3 pg Normal 25.9-34.0 [facility] Comment on above: Performed By: #### C BC #### [facility] [address] [place] [address] Dr. Miah Veloz MCHC (RBC) [Mass/Vol] 33.6 g/dL Normal 29.9-35.2 [facility] Comment on above: Performed By: #### C BC #### [facility] [address] [place] [address] Dr. Miah Veloz MCV (RBC) [Entitic vol] 96.1 fL Critically high 80.0-94.0 [facility] Comment on above: Performed By: #### C BC #### [facility] [address] [place] [address] Dr. Miah Veloz MONO # 0.8 103/ul Normal 0.3-0.8 [facility] Comment on above: Performed By: #### C BC #### [facility] [address] [place] [address] Dr. Miah Veloz Monocytes/100 WBC (Bld) 10.2 % Normal 1.7-12.0 [facility] Comment on above: Performed By: #### C BC #### [facility] [address] [place] [address] Dr. Miah Veloz NEUT # 4.8 103/ul Normal 1.4-6.5 [facility] Comment on above: Performed By: #### C BC #### [facility] [address] [place] [address] Dr. Miah Veloz Neutrophils/100 WBC (Bld) 62.8 % Normal 43.0-75.0 [facility] Comment on above: Performed By: #### C BC #### [facility] [address] [place] [address] Dr. Miah Veloz Platelet mean volume (Bld) [Entitic vol] 10.2 fL Normal 9.5-13.5 [facility] Comment on above: Performed By: #### C BC #### [facility] [address] [place] [address] Dr. Miah Veloz PLT 224 103/ul Normal 150-450 [facility] Comment on above: Performed By: #### C BC #### [facility] [address] [place] [address] Dr. Miah Veloz RBC 3.84 106/ul Critically low 4.70-6.10 [facility] Comment on above: Performed By: #### C BC #### [facility] [address] [place] [address] Dr. Miah Veloz WBC 7.7 103/ul Normal 4.0-11.0 [facility] Comment on above: Performed By: #### C BC #### [facility] [address] [place] [address] Dr. Miah Veloz PROF CHEM 8 (BAS METB)on Anion gap [Moles/Vol] 14.4 mmol/L Normal [facility] Comment on above: Performed By: #### B RADIOGRAPHER TECHNOLOGIST, CMP, HSTROPN #### [facility] [address] [place] [address] Dr. Miah Veloz Calcium [Mass/Vol] 8.3 mg/dL Critically low 8.5-10.1 [facility] Comment on above: Performed By: #### B RADIOGRAPHER TECHNOLOGIST, CMP, HSTROPN #### [facility] [address] [place] [address] Dr. Miah Veloz Chloride [Moles/Vol] 106 mmol/L Normal 98-107 [facility] Comment on above: Performed By: #### B RADIOGRAPHER TECHNOLOGIST, CMP, HSTROPN #### [facility] [address] [place] [address] Dr. Miah Veloz CO2 [Moles/Vol] 27.0 mmol/L Normal 21.0-32.0 [facility] Comment on above: Performed By: #### B RADIOGRAPHER TECHNOLOGIST, CMP, HSTROPN #### [facility] [address] [place] [address] Dr. Miah Veloz Creatinine [Mass/Vol] 1.12 mg/dL Normal 0.70-1.30 [facility] Comment on above: Performed By: #### B RADIOGRAPHER TECHNOLOGIST, CMP, HSTROPN #### [facility] [address] [place] [address] Dr. Miah Veloz EGFR-AF CITIZEN OF [place] >60 Normal >=60 [facility] Comment on above: Performed By: #### B RADIOGRAPHER TECHNOLOGIST, CMP, HSTROPN #### [facility] [address] [place] [address] Dr. Miah Veloz EGFR-NON AF CITIZEN OF [place] >60 Normal >=60 [facility] Comment on above: Performed By: #### B RADIOGRAPHER TECHNOLOGIST, CMP, HSTROPN #### [facility] [address] [place] [address] Dr. Miah Veloz Glucose [Mass/Vol] 103 mg/dL Normal 74-106 [facility] Comment on above: Performed By: #### B RADIOGRAPHER TECHNOLOGIST, CMP, HSTROPN #### [facility] [address] [place] [address] Dr. Miah Veloz Potassium [Moles/Vol] 3.4 mmol/L Critically low 3.5-5.1 [facility] Comment on above: Performed By: #### B RADIOGRAPHER TECHNOLOGIST, CMP, HSTROPN #### [facility] [address] [place] [address] Dr. Miah Veloz Sodium [Moles/Vol] 144 mmol/L Normal 136-145 [facility] Comment on above: Performed By: #### B RADIOGRAPHER TECHNOLOGIST, CMP, HSTROPN #### [facility] [address] [place] [address] Dr. Miah Veloz Urea nitrogen [Mass/Vol] 21.0 mg/dL Critically high 7.0-18.0 [facility] Comment on above: Performed By: #### B RADIOGRAPHER TECHNOLOGIST, CMP, HSTROPN #### [facility] [address] [place] [address] Dr. Miah Veloz Urea nitrogen/Creatinine [Mass ratio] 18.8 mg/mg Normal [facility] Comment on above: Performed By: #### B RADIOGRAPHER TECHNOLOGIST, CMP, HSTROPN #### [facility] [address] [place] [address] Dr. Miah Veloz CBC AUTO DIFFon 04-27-2022 BASO # 0.0 103/ul Normal 0.0-0.1 [facility] Comment on above: Performed By: #### B RADIOGRAPHER TECHNOLOGIST, CMP, HSTROPN #### [facility] [address] [place] [address] Dr. Miah Veloz Basophils/100 WBC (Bld) 0.4 % Normal 0.2-2.0 [facility] Comment on above: Performed By: #### B RADIOGRAPHER TECHNOLOGIST, CMP, HSTROPN #### [facility] [address] [place] [address] Dr. Miah Veloz EO # 0.2 103/ul Normal 0.0-0.7 [facility] Comment on above: Performed By: #### B RADIOGRAPHER TECHNOLOGIST, CMP, HSTROPN #### [facility] [address] [place] [address] Dr. Miah Veloz Eosinophils/100 WBC (Bld) 3.2 % Normal 0.9-7.0 [facility] Comment on above: Performed By: #### B RADIOGRAPHER TECHNOLOGIST, CMP, HSTROPN #### [facility] [address] [place] [address] Dr. Miah Veloz Erythrocyte distribution width (RBC) [Ratio] 13.6 % Normal 11.0-15.0 [facility] Comment on above: Performed By: #### B RADIOGRAPHER TECHNOLOGIST, CMP, HSTROPN #### [facility] [address] [place] [address] Dr. Miah Veloz Hematocrit (Bld) [Volume fraction] 36.7 % Critically low 42.0-54.0 [facility] Comment on above: Performed By: #### B RADIOGRAPHER TECHNOLOGIST, CMP, HSTROPN #### [facility] [address] [place] [address] Dr. Miah Veloz Hemoglobin (Bld) [Mass/Vol] 12.0 g/dL Critically low 14.0-18.0 [facility] Comment on above: Performed By: #### B RADIOGRAPHER TECHNOLOGIST, CMP, HSTROPN #### [facility] [address] [place] [address] Dr. Miah Veloz IG # 0.02 10e3/ul Normal 0.00-0.03 [facility] Comment on above: Performed By: #### B RADIOGRAPHER TECHNOLOGIST, CMP, HSTROPN #### [facility] [address] [place] [address] Dr. Miah Veloz IG % 0.3 % Normal 0.0-0.5 [facility] Comment on above: Performed By: #### B RADIOGRAPHER TECHNOLOGIST, CMP, HSTROPN #### [facility] [address] [place] [address] Dr. Miah Veloz LYMPH # 1.6 103/ul Normal 1.2-3.8 [facility] Comment on above: Performed By: #### B RADIOGRAPHER TECHNOLOGIST, CMP, HSTROPN #### [facility] [address] [place] [address] Dr. Miah Veloz Lymphocytes/100 WBC (Bld) 22.2 % Normal 20.5-60.0 [facility] Comment on above: Performed By: #### B RADIOGRAPHER TECHNOLOGIST, CMP, HSTROPN #### [facility] [address] [place] [address] Dr. Miah Veloz MANUAL DIFF REQ NO Normal [facility] Comment on above: Performed By: #### B RADIOGRAPHER TECHNOLOGIST, CMP, HSTROPN #### [facility] [address] [place] [address] Dr. Miah Veloz MCH (RBC) [Entitic mass] 32.3 pg Normal 25.9-34.0 [facility] Comment on above: Performed By: #### B RADIOGRAPHER TECHNOLOGIST, CMP, HSTROPN #### [facility] [address] [place] [address] Dr. Miah Veloz MCHC (RBC) [Mass/Vol] 32.7 g/dL Normal 29.9-35.2 [facility] Comment on above: Performed By: #### B RADIOGRAPHER TECHNOLOGIST, CMP, HSTROPN #### [facility] [address] [place] [address] Dr. Miah Veloz MCV (RBC) [Entitic vol] 98.7 fL Critically high 80.0-94.0 [facility] Comment on above: Performed By: #### B RADIOGRAPHER TECHNOLOGIST, CMP, HSTROPN #### [facility] [address] [place] [address] Dr. Miah Veloz MONO # 0.7 103/ul Normal 0.3-0.8 [facility] Comment on above: Performed By: #### B RADIOGRAPHER TECHNOLOGIST, CMP, HSTROPN #### [facility] [address] [place] [address] Dr. Miah Veolz Monocytes/100 WBC (Bld) 9.1 % Normal 1.7-12.0 [facility] Comment on above: Performed By: #### B RADIOGRAPHER TECHNOLOGIST, CMP, HSTROPN #### [facility] [address] [place] [address] Dr. Miah Veloz NEUT # 4.6 103/ul Normal 1.4-6.5 [facility] Comment on above: Performed By: #### B RADIOGRAPHER TECHNOLOGIST, CMP, HSTROPN #### [facility] [address] [place] [address] Dr. Miah Veloz Neutrophils/100 WBC (Bld) 64.8 % Normal 43.0-75.0 [facility] Comment on above: Performed By: #### B RADIOGRAPHER TECHNOLOGIST, CMP, HSTROPN #### [facility] [address] [place] [address] Dr. Miah Veloz Platelet mean volume (Bld) [Entitic vol] 10.2 fL Normal 9.5-13.5 [facility] Comment on above: Performed By: #### B RADIOGRAPHER TECHNOLOGIST, CMP, HSTROPN #### [facility] [address] [place] [address] Dr. Miah Veloz PLT 200 103/ul Normal 150-450 [facility] Comment on above: Performed By: #### B RADIOGRAPHER TECHNOLOGIST, CMP, HSTROPN #### [facility] [address] [place] [address] Dr. Miah Veloz RBC 3.72 106/ul Critically low 4.70-6.10 [facility] Comment on above: Performed By: #### B RADIOGRAPHER TECHNOLOGIST, CMP, HSTROPN #### [facility] [address] [address] [address] Miah Veloz WBC 7.1 103/ul Normal 4.0-11.0 [facility] Comment on above: Performed By: #### B RADIOGRAPHER TECHNOLOGIST, CMP, HSTROPN #### [facility] [id number] Miah Veloz ECHOCARDIO M/2D COMPLETEon 0 04-27-2022 ECHOCARDIO M/2D COMPLETE Patient: GARRY STREETER Exam Date: 04/27/2022 : 1955 Gender:M Ordering : DR ANDREI ORONA . Admission #: [id number] Family : Order #: [id number] CLICK HERE TO VIEW EXAM ECHOCARDIOGRAM REPORT [...] Area(A4C): 22.40 cm2 Left Atrium Systolic Volume(A2C): 86930 mm3 Left Atrium Systolic Volume(A4C): 49935 mm3 Mitral Valve Mitral Valve E-Wave Peak [...] M.D. on 04/27/2022 at 16:58 Normal [facility] PROF CHEM 8 (BAS METB)on Anion gap [Moles/Vol] 13.3 mmol/L Normal [facility] Comment on above: Performed By: #### B MP #### [facility] [address] [place] [address] Dr. Miah Veloz Calcium [Mass/Vol] 8.2 mg/dL Critically low 8.5-10.1 [facility] Comment on above: Performed By: #### B MP #### [facility] [address] [place] [address] Dr. Miah Veloz Chloride [Moles/Vol] 107 mmol/L Normal 98-107 [facility] Comment on above: Performed By: #### B MP #### [facility] [address] [address] [address] Miah Veloz CO2 [Moles/Vol] 27.5 mmol/L Normal 21.0-32.0 [facility] Comment on above: Performed By: #### B MP #### [facility] [address] [address] [address] Miah Veloz Creatinine [Mass/Vol] 0.97 mg/dL Normal 0.70-1.30 [facility] Comment on above: Performed By: #### B MP #### [facility] [address] [address] [address] Miah Veloz EGFR-AF CITIZEN OF [place] >60 Normal >=60 [facility] Comment on above: Performed By: #### B MP #### [facility] [address] [address] [address] Miah Veloz EGFR-NON AF CITIZEN OF [place] >60 Normal >=60 [facility] Comment on above: Performed By: #### B MP #### [facility] [address] [address] [address] Miah Veloz Glucose [Mass/Vol] 102 mg/dL Normal 74-106 [facility] Comment on above: Performed By: #### B MP #### [facility] [address] [address] [address] Miah Veloz Potassium [Moles/Vol] 3.8 mmol/L Normal 3.5-5.1 [facility] Comment on above: Performed By: #### B MP #### [facility] [address] [address] [address] Miah Veloz Sodium [Moles/Vol] 144 mmol/L Normal 136-145 [facility] Comment on above: Performed By: #### B MP #### [facility] [address] [address] [address] Miah Veloz Urea nitrogen [Mass/Vol] 17.0 mg/dL Normal 7.0-18.0 [facility] Comment on above: Performed By: #### B MP #### [facility] [address] [place] [address] Dr. Miah Veloz Urea nitrogen/Creatinine [Mass ratio] 17.5 mg/mg Normal [facility] Comment on above: Performed By: #### B MP #### [facility] [address] [place] [address] Dr. Miah Veloz BNPon 04-26-2022 Natriuretic peptide B (Bld) [Mass/Vol] 1105.0 pg/mL Critically high <=900.0 [facility] Comment on above: Performed By: #### B RADIOGRAPHER TECHNOLOGIST, CMP, HSTROPN #### [facility] [address] [place] [address] Dr. Miah Veloz CBC AUTO DIFFon 04-26-2022 BASO # 0.0 103/ul Normal 0.0-0.1 [facility] Comment on above: Performed By: #### C BC #### [facility] [address] [place] [address] Dr. Miah Veloz Basophils/100 WBC (Bld) 0.6 % Normal 0.2-2.0 [facility] Comment on above: Performed By: #### C BC #### [facility] [address] [place] [address] Dr. Miah Veloz EO # 0.2 103/ul Normal 0.0-0.7 [facility] Comment on above: Performed By: #### C BC #### [facility] [address] [place] [address] Dr. Miah Veloz Eosinophils/100 WBC (Bld) 2.1 % Normal 0.9-7.0 [facility] Comment on above: Performed By: #### C BC #### [facility] [address] [place] [address] Dr. Miah Veloz Erythrocyte distribution width (RBC) [Ratio] 13.7 % Normal 11.0-15.0 [facility] Comment on above: Performed By: #### C BC #### [facility] [address] [place] [address] Dr. Miah Veloz Hematocrit (Bld) [Volume fraction] 39.3 % Critically low 42.0-54.0 [facility] Comment on above: Performed By: #### C BC #### [facility] [address] [place] [address] Dr. Miah Veloz Hemoglobin (Bld) [Mass/Vol] 13.0 g/dL Critically low 14.0-18.0 [facility] Comment on above: Performed By: #### C BC #### [facility] [address] [address] [address] Miah Veloz IG # 0.02 10e3/ul Normal 0.00-0.03 [facility] Comment on above: Performed By: #### C BC #### [facility] [address] [place] [address] Dr. Miah Veloz IG % 0.3 % Normal 0.0-0.5 [facility] Comment on above: Performed By: #### C BC #### [facility] [address] [place] [address] Dr. Miah Veloz LYMPH # 1.1 103/ul Critically low 1.2-3.8 [facility] Comment on above: Performed By: #### C BC #### [facility] [address] [place] [address] Dr. Miah Veloz Lymphocytes/100 WBC (Bld) 16.1 % Critically low 20.5-60.0 [facility] Comment on above: Performed By: #### C BC #### [facility] [address] [place] [address] Dr. Miah Veloz MANUAL DIFF REQ NO Normal [facility] Comment on above: Performed By: #### C BC #### [facility] [address] [address] [address] Miah Veloz MCH (RBC) [Entitic mass] 32.7 pg Normal 25.9-34.0 [facility] Comment on above: Performed By: #### C BC #### [facility] [address] [place] [address] Dr. Miah Veloz MCHC (RBC) [Mass/Vol] 33.1 g/dL Normal 29.9-35.2 [facility] Comment on above: Performed By: #### C BC #### [facility] [address] [place] [address] Dr. Miah Veloz MCV (RBC) [Entitic vol] 98.7 fL Critically high 80.0-94.0 [facility] Comment on above: Performed By: #### C BC #### [facility] [address] [place] [address] Dr. Miah Veloz MONO # 0.5 103/ul Normal 0.3-0.8 [facility] Comment on above: Performed By: #### C BC #### [facility] [address] [place] [address] Dr. Miah Veloz Monocytes/100 WBC (Bld) 7.6 % Normal 1.7-12.0 [facility] Comment on above: Performed By: #### C BC #### [facility] [address] [place] [address] Dr. Miah Veloz NEUT # 5.2 103/ul Normal 1.4-6.5 [facility] Comment on above: Performed By: #### C BC #### [facility] [address] [place] [address] Dr. Miah Veloz Neutrophils/100 WBC (Bld) 73.3 % Normal 43.0-75.0 [facility] Comment on above: Performed By: #### C BC #### [facility] [address] [place] [address] Dr. Miah Veloz Platelet mean volume (Bld) [Entitic vol] 10.7 fL Normal 9.5-13.5 [facility] Comment on above: Performed By: #### C BC #### [facility] [address] [place] [address] Dr. Miah Veloz PLT 200 103/ul Normal 150-450 [facility] Comment on above: Performed By: #### C BC #### [facility] [address] [place] [address] Dr. Miah Veloz RBC 3.98 106/ul Critically low 4.70-6.10 [facility] Comment on above: Performed By: #### C BC #### [facility] [address] [place], [place] [address] Dr. Miah Veloz WBC 7.1 103/ul Normal 4.0-11.0 [facility] Comment on above: Performed By: #### C BC #### [facility] [address] [place], [place] [address] Dr. Miah Veloz CTA CHEST WO W [...] NICK CABRALES Date: 2022-04-26 10:50 Normal [facility] Covid-19 PCR (CVDTB)on SARS-CoV-2 (COVID-19) RNA GÓMEZ+probe Ql (Unsp spec) Not detected Normal NOT DETECTED [facility] Comment on above: Result Comment: When [...] for this test is supported by the [place] and Human Service's declaration that [...] longer be used). Performed By: #### B RADIOGRAPHER TECHNOLOGIST, CMP, HSTROPN #### [facility] [address] [place] [address] Dr. Miah Veloz PROF 14(COMP METB)on 022 Albumin [Mass/Vol] 3.1 g/dL Critically low 3.4-5.0 [facility] Comment on above: Performed By: #### B RADIOGRAPHER TECHNOLOGIST, CMP, HSTROPN #### [facility] [address] [place] [address] Dr. Miah Veloz Albumin/Globulin [Mass ratio] 0.9 {ratio} Normal [facility] Comment on above: Performed By: #### B RADIOGRAPHER TECHNOLOGIST, CMP, HSTROPN #### [facility] [address] [place] [address] Dr. Miah Veloz ALP [Catalytic activity/Vol] 54 U/L Normal 46-116 [facility] Comment on above: Performed By: #### B RADIOGRAPHER TECHNOLOGIST, CMP, HSTROPN #### [facility] [address] [place] [address] Dr. Miah Veloz ALT [Catalytic activity/Vol] 63 U/L Normal 16-63 [facility] Comment on above: Performed By: #### B RADIOGRAPHER TECHNOLOGIST, CMP, HSTROPN #### [facility] [address] [place] [address] Dr. Miah Veloz Anion gap [Moles/Vol] 13.9 mmol/L Normal [facility] Comment on above: Performed By: #### B RADIOGRAPHER TECHNOLOGIST, CMP, HSTROPN #### [facility] [address] [address] [address] Miah Veloz AST [Catalytic activity/Vol] 32 U/L Normal 15-37 [facility] Comment on above: Performed By: #### B RADIOGRAPHER TECHNOLOGIST, CMP, HSTROPN #### [facility] [address] [place] [address] Dr. Miah Veloz Calcium [Mass/Vol] 8.7 mg/dL Normal 8.5-10.1 [facility] Comment on above: Performed By: #### B RADIOGRAPHER TECHNOLOGIST, CMP, HSTROPN #### [facility] [address] [place] [address] Dr. Miah Veloz Chloride [Moles/Vol] 108 mmol/L Critically high 98-107 [facility] Comment on above: Performed By: #### B RADIOGRAPHER TECHNOLOGIST, CMP, HSTROPN #### [facility] [address] [place] [address] Dr. Miah Veloz CO2 [Moles/Vol] 24.3 mmol/L Normal 21.0-32.0 [facility] Comment on above: Performed By: #### B RADIOGRAPHER TECHNOLOGIST, CMP, HSTROPN #### [facility] [address] [place] [address] Dr. Miah Veloz Creatinine [Mass/Vol] 0.90 mg/dL Normal 0.70-1.30 [facility] Comment on above: Performed By: #### B RADIOGRAPHER TECHNOLOGIST, CMP, HSTROPN #### [facility] [address] [place] [address] Dr. Miah Veloz EGFR-AF CITIZEN OF [place] >60 Normal >=60 [facility] Comment on above: Performed By: #### B RADIOGRAPHER TECHNOLOGIST, CMP, HSTROPN #### [facility] [address] [place] [address] Dr. Miah Veloz EGFR-NON AF CITIZEN OF [place] >60 Normal >=60 [facility] Comment on above: Performed By: #### B RADIOGRAPHER TECHNOLOGIST, CMP, HSTROPN #### [facility] [address] [place] [address] Dr. Miah Veloz Globulin (S) [Mass/Vol] 3.6 g/dL Normal [facility] Comment on above: Performed By: #### B RADIOGRAPHER TECHNOLOGIST, CMP, HSTROPN #### [facility] [address] [address] [address] Miah Veloz Glucose [Mass/Vol] 146 mg/dL Critically high 74-106 [facility] Comment on above: Performed By: #### B RADIOGRAPHER TECHNOLOGIST, CMP, HSTROPN #### [facility] [address] [address] [address] Miah Veloz Potassium [Moles/Vol] 4.2 mmol/L Normal 3.5-5.1 [facility] Comment on above: Performed By: #### B RADIOGRAPHER TECHNOLOGIST, CMP, HSTROPN #### [facility] [address] [place] [address] Dr. Miah Veloz Protein [Mass/Vol] 6.7 g/dL Normal 6.4-8.2 [facility] Comment on above: Performed By: #### B RADIOGRAPHER TECHNOLOGIST, CMP, HSTROPN #### [facility] [address] [place] [address] Dr. iMah Veloz Sodium [Moles/Vol] 142 mmol/L Normal 136-145 [facility] Comment on above: Performed By: #### B RADIOGRAPHER TECHNOLOGIST, CMP, HSTROPN #### [facility] [address] [place] [address] Dr. Miah Veloz Urea nitrogen [Mass/Vol] 19.0 mg/dL Critically high 7.0-18.0 [facility] Comment on above: Performed By: #### B RADIOGRAPHER TECHNOLOGIST, CMP, HSTROPN #### [facility] [address] [address] [address] Miah Veloz Urea nitrogen/Creatinine [Mass ratio] 21.1 mg/mg Normal [facility] Comment on above: Performed By: #### B RADIOGRAPHER TECHNOLOGIST, CMP, HSTROPN #### [facility] [address] [place] [address] Dr. Miah Veloz PROTIMEon 04-26-2022 INR Coag (PPP) [Relative time] 1.20 {INR} Normal [facility] Comment on above: Performed By: #### B RADIOGRAPHER TECHNOLOGIST, CMP, HSTROPN #### [facility] [address] [place] [address] Dr. Miah Veloz INR GUIDELINES SEE BELOW Normal [facility] Comment on above: Result Comment: JENNIFER RED INR: 2.0 - 3.0 CONDITIONS NOT LISTED BELOW 2.5 - 3.5 FOR PROSTHETIC HEART VALVE REPLACEMENT 2.5 - 3.5 RECURRENT THROMBOSIS Performed By: #### B RADIOGRAPHER TECHNOLOGIST, CMP, HSTROPN #### [facility] [address] [address] [address] Miah Veloz PT Coag (PPP) [Time] 12.8 s Critically high 9.0-11.6 [facility] Comment on above: Performed By: #### B RADIOGRAPHER TECHNOLOGIST, CMP, HSTROPN #### [facility] [address] [place] [address] Dr. Miah Veloz PTTon 04-26-2022 aPTT Coag (Bld) [Time] 28.5 s Normal 22.3-36.2 [facility] Comment on above: Performed By: #### B RADIOGRAPHER TECHNOLOGIST, CMP, HSTROPN #### [facility] [address] [place] [address] Dr. Miah Veloz TROPONIN, HIGH SENSITIVITYon 04-26-2022 HSTROP 24.7 pg/mL Normal 4.0-76.1 [facility] Comment on above: Result Comment: CUT- OFF POINTS HAVE BEEN ESTABLISHED BASED ON THE FOURTH UNIVERSAL DEFINITIONS OF MYOCARDIAL INFARCTION. THE UPPER REFERENCE LIMIT (URL) OF TROPONIN, DEFINED THE 99TH PERCENTILE OF cTnI DISTRIBUTION IN A REFERENCE POPULATION, HAS BEEN CONFIRMED THE DECISION THRESHOLD FOR CO DIAGNOSIS. Performed By: #### B RADIOGRAPHER TECHNOLOGIST, CMP, HSTROPN #### [facility] [address] [place] [address] Dr. Miah Veloz Encounters Encounter Date Encounter Type Care Provider Facility Start: 12-07-2023 End: 12-07-2023 ambulatory [facility] Start: 10-22-2023 End: 10-22-2023 ambulatory MEET [facility] Start: 08-30-2023 End: 08-30-2023 ambulatory MARTIN ADKINSLISET [facility] Start: 03-22-2023 End: 03-22-2023 ambulatory TACHO SHAYBARBARA [facility] Start: 03-01-2023 End: 03-02-2023 ambulatory SARAH JAMES Facility:[facility] Start: 02-03-2023 End: 02-03-2023 ambulatory SARAH DEL CASTILLOS [facility] Start: 01-15-2023 End: 01-16-2023 ambulatory LUZMA PHAM Facility:[facility] Start: 10-31-2022 Encounter for preprocedural laboratory examination DR TAVIA [place] . [facility] Start: 10-28-2022 End: 10-29-2022 ambulatory TAVIA [place] Facility:[facility] Start: 10-28-2022 End: 10-28-[address] [place] . Facility:[facility] Start: 10-24-2022 End: 10-25-[address] [place] . Facility:[facility] Start: 10-24-2022 End: 10-25-2022 Encounter for preprocedural laboratory examination DR TAVIA [place] . Facility:[facility] Start: 08-12-2022 Encounter for other preprocedural examination TACHO HOLLAND [facility] Start: 08-10-2022 End: 08-11-2022 ambulatory TACHO HOLLAND Facility:[facility] Start: 08-10-2022 End: 08-11-2022 Encounter for other preprocedural examination TACHO HOLLAND Facility:[facility] Start: 08-05-2022 End: 08-06-2022 ambulatory TACHO HOLLAND Facility:[facility] Start: 05-14-2022 End: 05-15-[address] DOCTOR FREED Facility:[facility] Start: 04-26-2022 End: 04-28-2022 Evaluation and management of inpatient NICK [place] Facility:[facility] Procedures Date Procedure Procedure Detail Performing Clinician Start: 03-22-2023 Follow-up visit Follow-up TACHO HOLLAND Payers Date Payer Category Payer Medicare [id number] 1961 Unknown [id number] 1955 Unknown [id number] 2.16.84 [id number] 1955 Unknown [id number] 2.16.84 [id number] 1955 Unknown [id number] 2.16.84 [id number] 1955 Unknown [id number] 2.16.84 [id number] 1955 Unknown [id number] 2.16.84 [id number] 1955 Unknown [id number] 2.16.84 [id number] 1955 Unknown [id number] 2.16.84 [id number] 1955 Unknown [id number] 2.16.84 [id number] 1955 Unknown [id number] 2.16.84 [id number] Clinical Notes 04-26-2022 to 12-07-2023 Note Date & Type Note Facility 12-07-2023 Note [facility] Consul t Note Reason for Consultation: Afib Date of Telehealth Visit: 12/07/23 The patient was notified that using 3rd democrat telecommunication application (e.g., [employer]) is not HIPPA compliant and may carry some privacy risks. Yes The visit was conducted [id number] with the use of audio and video [...] by tachyarrhythmia recently was admitted to the [facility] 10/08/2023 with A-fib RVR Has been noted [...] on exertion, leg (more content not included)... [facility] 10-22-2023 Note Patient here for [facility] for afib w/ RVR. He was [...] All other systems reviewed and are negative. [facility] 10-22-2023 Note [facility] Consul t Note Reason for Consultation: Afib 10/22/23: He is here for follow-up regarding his A-fib. He has history of nonischemic cardiomyopathy likely induced by tachyarrhythmia recently was admitted to the [facility] 10/08/2023 with A-fib RVR Has been noted [...] History: Diagnosis Date CHF (congestive heart failure) ([facility]) Dyspnea PAF (paroxysmal atrial fibrillation) ([facility]) Systolic heart failure ([facility]) PSH: No past surgical history on [...] direct anterior nasal( (more content not included)... [facility] 08-30-2023 Note [facility] CARDIOLOGY PROGR ESS NOTE HPI: Garry Streeter is a 68 y.o. male past medical history of heart failure improved ejection fraction, paroxysmal atrial fibrillation, hypertension, and valvular heart disease seen in follow-up. Update: 03/22/2023 Pt is here for med check F/U for [facility] pt states he stopped taking some [...] Conclusions: Biphasic cardio (more content not included)... [facility] 08-30-2023 Note Patient here for [...] All other systems reviewed and are negative. [facility] 03-22-2023 Note [facility] CARDIOLOGY PROGR [...] normal. Mild aor (more content not included)... [facility] 02-03-2023 Note No edema today [facility] 02-03-2023 Note Stable [facility] 02-03-2023 Note EKG today-Sinus manny ycardia with PACs/PVCs- And artifact, Otherwise normal EKG He is adamant he is still taking Eliquis anticoagulation, Pharmacy denies that he is filled Eliquis or metoprolol in the last 6 months. Discussed with patient risk for stroke with paroxysmal atrial fib- He states he has cardia Monitor at home and he has not had any A-fib [facility] 02-03-2023 Note [facility] I-II Currently [...] Staff To obtain recent labs from PCP [facility] 02-03-2023 Note Pt is here for med c heck F/U fpr [facility] pt states he stop take some of his meds due to having Diarrhea more then 3 times a day pt also stated he was having problems walking due to gout. Review of Systems Gastrointestinal: Positive for diarrhea. All other systems reviewed and are negative. [facility] 02-03-2023 Note [facility] CARDIOLOGY PROGR ESS NOTE HPI: Garry Streeter is a 67 y.o. male here for Med Refill, Atrial Fibrillation, and Congestive Heart Failure Known h/o Chronic systolic heart failure, Paroxysmal atrial fib, edema, and noncompliance to med regimen. Pt is here for med check F/U for [facility] pt states he stopped taking some [...] this time. Staff called pharmacy- [facility] [place] and patient states this is his only [...] Right ventricular syst (more content not included)... [facility] 04-26-2022 Note PROCEDURE: XR KNEE L T 4V or > COMPARISON: None. HISTORY: Swelling FINDINGS: BONES:No fracture, acute abnormality, or significant arthropathy. SOFT TISSUES:Negative. No visible soft tissue swelling. EFFUSION:Moderate suprapatellar joint effusion OTHER: Negative. IMPRESSION: Moderate joint effusion Electronically authenticated by: NICK CABRALES Date: 2022-04-26 10:09 [facility] Summary Purpose Family History No Family History Records FoundNo Family History Records FoundNo Family History Records Found Advance Directives No Advanced Directives Records FoundNo Advanced Directives Records FoundNo Advanced Directives Records Found Additional Source Comments (unrecognized sect ion and content) No Status Records FoundNo Status Records FoundNo Status Records Found INFORMATION SOURCE (unrecogn ized section and content) DATE CREATED AUTHOR 10/30/2022 [facility] DATE CREATED AUTHOR AUTHOR'S ORGANIZ ATION 03/17/2023 [facility] DATE CREATED AUTHOR AUTHOR'S ORGANIZ ATION 12/22/2023 [facility] FOR RECORDS PERTAINING TO PATIENTS WHO [...] BE BASED ON THE PRIMARY CLINICAL RECORDS. [employer] provides no warranty or guarantee of the accuracy or completeness of information in this document.
--- NOTE | 2024-01-13 09:00 | CA_ITS ---
Patient Name: GARRY STREETER MR#: [id number] : 1955 Exam Date: 01/13/2024 Ordering Doctor: EMILY SAAB ECHOCARDIOGRAM REPORT PROCEDURE: CA ECHO DOPPLER COMPLETE INDICATIONS: Atrial flutter, chronic systolic heart failure, hypertension COMPARISON: None. DESCRIPTION: COMPLETE ECHOCARDIOGRAM Real-time transthoracic echocardiography with 2D, M-mode, spectral and color flow Doppler performed. QUALITY: Technical quality was good. 72 , 210#, BSA 2.18 m2 LEFT VENTRICLE: Normal chamber size. Mild concentric left ventricular hypertrophy. Normal systolic function. LV EF: Normal left ventricular ejection fraction, (>55%). DIASTOLIC: Normal diastolic function. ATRIAL SEPTUM: Color Doppler flow shows evidence of [id number]-td-[id number] shunt suggestive of ASD versus PFO. LEFT ATRIUM: Normal chamber size. RIGHT ATRIUM: Mild dilatation. RIGHT VENTRICLE: Normal chamber size. Normal right ventricular systolic function. TRICUSPID VALVE: Normal mobility and thickness. No stenosis with trivial regurgitation. Doppler studies reveal mildly (35-45) elevated right sided pressures. RVSP 42 mmHg MITRAL VALVE: Mildly thickened with normal mobility. No evidence of mitral valve stenosis. There is no mitral annular calcification. Trivial mitral regurgitation. AORTIC VALVE: Normal trileaflet appearance. Normal leaflet mobility. No evidence of aortic valve stenosis. Multifocal calcification. Mild aortic regurgitation. AORTIC ROOT: Normal diameter and appearance. PULMONIC VALVE: Normal thickness and mobility. No stenosis. Trivial regurgitation. PERICARDIUM: No evidence of pericardial effusion. IVC: Collapses with inspirations. IVC is normal in size. PLEURA: CONCLUSION: 1. Mild concentric left ventricular hypertrophy with normal systolic function. LVEF is estimated at 60 to 65%. 2. Normal right ventricular size and systolic function. 3. Normal diastolic function. 4. Mild right atrial dilatation. 5. Mild aortic regurgitation. 6. Mildly elevated right-sided pressures. RVSP is 42 mmHg. 7. Color Doppler flow shows evidence of zynk-nz-enjsr shunt suggestive of ASD versus PFO. 8. A transesophageal echocardiogram is recommended for better assessment of the interatrial septum. Adult Echocardiography Procedure Report Left Ventricle LVEDD (3.7 - 5.6 cm): 5.03 cm LVESD (2.2 - 4.0 cm): 3.20 cm LVIVS thickness (0.6 - 1.2 cm): 1.12 cm LVPW thickness (0.5 - 1.0 cm): 1.07 cm e': 0.11 m/s E - e': 5.03 LVOT Max Gradient: 2.40 mm[Hg] LVOT Area (cm2): 0.78 m/s Peak Velocity (LVOT): 0.78 m/s Mean Velocity (LVOT): 0.58 m/s LVOT Diameter 2.76 cm Left Atrium LA Volume Index (2D A2C): 34.11 ml/m2 Left Atrium Systolic Dimension: 4.65 cm Mitral Valve MV E to A Ratio: 1.03 Mitral Valve A-Wave Peak Velocity: 0.52 m/s Mitral Valve E-Wave Peak Velocity: 0.54 m/s Right Ventricle Aorta AO Root Diam: 3.48 cm Ascending Ao Diam: 3.45 cm Aortic Valve AoV Area (Peak Jose): 2.77 cm2, 2.77 cm2 AoV Area (VTI): 2.57 cm2, 2.57 cm2 Deceleration Carbon: 0.93 m/s2 Pressure Half-Time: 1.36 s Peak Velocity(Antegrade Flow): 1.67 m/s Peak Gradient(Antegrade Flow): 11.09 mm[Hg] Mean Velocity(Antegrade Flow): 1.05 m/s Mean Gradient(Antegrade Flow): 5.39 mm[Hg] Velocity Time Integral: 40.45 cm Tricuspid Valve Peak Velocity (Regurgitant Flow): 3.11 m/s Pulmonic Valve Mean Gradient: 1.74 mm[Hg] Mean Velocity: 0.60 m/s Peak Velocity: 1.02 m/s, 0.92 m/s Peak Gradient: 4.20 mm[Hg], 3.40 mm[Hg] Right Atrium Right Atrium Systolic Pressure: 47.04 ml, 47.04 ml Dictated by: Zaki Palacios M.D. on 01/13/2024 at 12:55 Approved by: Zaki Palacios M.D. on 01/13/2024 at 12:59
== END 2024-01-13 08:48 | disposition home or self-care (01) ==
PROVIDERS: PCP Nurse Practitioner Primary Care; Visit Provider Internal Medicine Cardiovascular Disease
DX: I48.4 Atypical atrial flutter (principal); I50.22 Chronic systolic (congestive) heart failure
CPT/HCPCS: 93306

== ENCOUNTER 2024-08-01 09:21 | Outpatient (OUT) | payer MEDICARE, SELFPAY ==
--- OUTSIDE RECORDS SUMMARY | 2024-08-01 09:28 | XMS_ITS | CCD ---
Author Organization [facility] Care Team Providers Care Senior Counsel Name Role Phone TAVIA [place] Attending Unavailable ALGHOSYLVIAANITACHO Consulting Unavailable MISC, DR NARANJO Primary Care Unavailable ALGHOTHANITACHO Attending Unavailable ALGHOTHANI, MOHAMAD Admitting Unavailable ALGHOTHANI, MOHAMAD Consulting Unavailable MISC, DR NARANJO Primary Care Unavailable ALGHOTACHO JACKSON Attending Unavailable ALGHOTHANI, MOHAMAD Admitting Unavailable GRILLIS ., DR TAVIA Salazar Consulting Unavaila ble MISC, DR NARANJO Primary Care Unavailable GRILLIS ., DR TAVIA Salazar Attending Unavaila ble GRILLIS ., DR TAVIA Salazar Admitting Unavaila ble WESTNICK Consulting Unavailable NADERER, DR ANDREI Hermosillo Attending Unavailable NADERER, DR ANDREI Hermosillo Admitting Unavailable MISC, DR NARANJO Primary Care Unavailable NADERER, DR ANDREI Hermosillo Consulting Unavailable MOUKARBEL, DR KIRKPATRICK Consulting Unavailable SACHIN ., YANN Consulting Unavailable GRILLIS ., DR TAVIA Salazar Consulting Unavaila ble MISC, DR NARANJO Primary Care Unavailable GRILLIS ., DR TAVIA Salazar Attending Unavaila ble GRILLIS ., DR TAVIA Salazar Admitting Unavaila ble ELAN, IVONNE WESLEY Consulting [...] Unavailable MISC, DR NARANJO Primary Care Unavailable PRINCESS, TACHO Attending Unavailable ALGHOMANUEL, MOHAMAD Admitting Unavailable HOOD FELICIANO Admitting Unavailable KAISER, HOOD Attending Unavailable KAISER, HOOD Referring Unavailable KAISER, HOOD Referring Unavailable KAISER, HOOD Attending Unavailable KAISER, HOOD Referring Unavailable KAISER, HOOD Attending Unavailable KAISER, HOOD Referring Unavailable MEET SCHMIDT Attending Unavailable JESUS, MEET Attending Unavailable JOSE EDUARDO HIDALGO Attending Unavailable TEZ BAHENA Attending Unavailable KAISER, HOOD Admitting Unavailable KAISER, HOOD Attending Unavailable Allergies Allergy Classification Reported Allergen(s) Allergy Type Date of Onset Reaction(s) Facility (2 sources) Acetaminophen; Translations: [ACETAMINOPHEN] Drug Allergy 09-15-2022 [facility] Repository Problems Active Problems Problem [...] [CONTACT W/AND (SUSP) EXPOS COVID-19] Onset: 10-31-2022 Unclassified (2 sources) Other persistent atrial fibrillation; Translations: [Other persistent atrial fibrillation] Onset: 03-01-2024 Past or Other Problems Problem Classification Problem Date Documented Da te Episodic/Chronic Other aftercare (1 source) long term (current) use of anticoagulants; Translations: [ESTHETICIAN SPA CURRNT USE ANTICOAGULANTS] Onset: 11-01-2022 Episodic Other [...] Translations: [DIARRHEA UNSPECIFIED] Onset: 10-28-2022 Episodic Other non-traumatic joint disorders (1 source) Pain in left knee; Translations: [PAIN IN LEFT KNEE] Onset: 05-19-2022 Episodic Other non-traumatic joint disorders (1 source) Effusion, left knee; Translations: [EFFUSION LEFT KNEE] Onset: 05-04-2022 Episodic Residual codes; unclassified (1 source) Family history of malignant neoplasm of digestive organs; Translations: [FAM HX MALIG NEOPLASM DIGESTIV ORGN] Onset: 11-01-2022 Episodic Screening and history of mental health and substance abuse codes (1 source) Personal history of nicotine dependence; Translations: [PERSONAL HISTORY OF NICOTINE DEPEND] Onset: 05-04-2022 Episodic Results Test Name Value Interpretation Reference Range Facility Follow-Upon 05-03-2024 Follow-Up [id number] Ben Streeter W 1955 M Date Provider Department Center 05/03/2024 [id number] [facility] Family History Problem Relation Age of Onset Colon cancer Brother Family Status - Relation Status Age at Brother Level of Service:20958 [place] OFFICE/OUTPATIENT ESTABLISHED MOD MDM 30 MIN Normal [facility] Orders Onlyon 05-03-2024 Orders Only [id number] Ben Streeter rt W 1955 M Date Provider Department Center 05/03/2024 MONICA BARRIENTOS TIM [facility] Family History Problem Relation Age of Onset Colon cancer Brother Family Status - Relation Status Age at Brother Normal [facility] Telephoneon 03-24-2024 Telephone [id number] Ben Streeter rt W 1955 M Date Provider Department Center 03/24/2024 1987-BLAKE JASON [facility] MD [facility] Family History Problem Relation Age of Onset Colon cancer Brother Family Status - Relation Status Age at Brother Reason for Visit and Comments: 3 week post ablation f/u [Other] Normal [facility] Telephoneon 03-10-2024 Telephone [id number] Ben Streeter rt W 1955 M Date Provider Department Center 03/10/2024 1987-[facility] J[facility] MD [facility] Family History Problem Relation Age of Onset Colon cancer Brother Family Status - Relation Status Age at Brother Reason for Visit and Comments: post ablation f/u [Other] Normal [facility] Telephoneon 03-09-2024 Telephone [id number] Ben Streeter rt W 1955 M Provider Department Center 03/09/2024 1987-[facility] J[facility] MD [facility] Family History Problem Relation Age of Onset Colon cancer Brother Family Status - Relation Status Age at Brother Reason for Visit and Comments: post ablation f/u [Other] Normal [facility] NURSNOTEon 03-02-2024 NURSNOTE Pt sat up 45 degrees . Tolerated well. Right groin dressing with small amt pink drng, new dressing placed. 1600 left radial mariah Dc'd, pressure x10 minutes. No bleeding. Pressure dressing applied. IV and pennington catheter Dc'd. Pt tolerated well. DC instructions reviewed with patient and , copy given. 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 Normal [facility] POCT GLUCOSE METER UNSOLICIT ED RESULTSon 03-02-2024 Glucose [Mass/Vol] 128 mg/dL High 70-105 [facility] Comment on above: Order Comment: Waive d Testing in the ED is performed under the ED CLIA certificate #[id number]. Result Comment: sina [email or web address] Performed By: #### L [id number] ####[facility] (HCI)[address] [place] [address] PROTIME-INRon 03-02-2024 INR IN PPP BY COAGULATION ASSAY 0.99 Normal 0.90-1.10 [facility] Comment on above: Result Comment: ACCC P RECOMMENDED INR FOR WARFARIN THERAPY CONDITION INR PROPHYLAXIS OF VENOUS THROMBOSIS 2-3 (HIGH-RISK SURGERY) TREATMENT OF VENOUS THROMBOSIS 2-3 TREATMENT OF PULMONARY EMBOLISM 2-3 PREVENTION OF SYSTEMIC EMBOLISM: 2-3 ACUTE MYOCARDIAL INFARCTION TISSUE HEART VALVES VALVULAR HEART DISEASE ATRIAL FIBRILLATION RECURRENT SYSTEMIC EMBOLISM MECHANICAL HEART VALVE 2.5-3.5 FROM: ORAL ANTICOAGULANTS. MECHANISM OF ACTION, CLINICAL EFFECTIVENESS, AND OPTIMAL THERAPEUTIC RANGE. CHEST 1995;108:231S-246S. Performed By: #### L [id number] ####[facility] ([id number])[address] [place] [address] PROTHROMBIN TIME (PT) IN PPP BY COAGULATION ASSAY 13.1 Seconds Normal 12.3-14.8 [facility] Comment on above: Performed By: #### L [id number] ####[facility] ([employer])[address] [place] [address] Prep for Procedureon 024 Prep for Procedure [id number] Ben Streeter rt W 1955 Date Provider Department Center 03/02/20241986-[facility] Problem Relation Age of Onset Colon cancer Brother Family Status - Relation Status Age at Brother Normal [facility] BASIC METABOLIC PANELon 02-20 Anion gap [Moles/Vol] 13 mmol/L Normal 7-20 [facility] Comment on above: Performed By: #### L [id number] #### [facility] ([facility]) [address] [place] [address] Calcium [Mass/Vol] 9.7 mg/dL Normal 8.6-10.[address] [facility] Comment on above: Performed By: #### L [id number] #### [facility] ([facility]) [address] [place] [address] Chloride [Moles/Vol] 102 mmol/L Normal 98-107 [facility] Comment on above: Performed By: #### L [id number] #### [facility] ([facility]) [address] [place] [address] CO2 [Moles/Vol] 26 mmol/L Normal 21-31 [facility] Comment on above: Performed By: #### L [id number] #### [facility] ([facility]) [address] [place] [address] Creatinine [Mass/Vol] 1.05 mg/dL Normal 0.70-1.30 [facility] Comment on above: Performed By: #### L [id number] #### [facility] ([facility]) [address] [place] [address] GLOMERULAR FILTRATION RATE ML/MIN/1.73 SQ M.PREDICTED 76.4 mL/min/1.73m*2 Normal >60.0 [facility] Comment on above: Result Comment: The [facility]???s estimated glomerular filtration rate (eGFR) will no longer include consideration of race in its calculation. The National Kidney Foundation???s eGFR Task Force developed new recommendations for the estimation of the glomerular filtration rate in the [place] They recommend immediate implementation of the new equation refit without the race variable in all laboratories because the calculation does not include race. In addition to not including race in the calculation and reporting, it included diversity in its development, and has acceptable performance characteristics and potential consequences that do not disproportionately affect any one group of individuals. Performed By: #### L [id number] #### [facility] ([facility]) [address] [place] [address] Glucose [Mass/Vol] 92 mg/dL Normal 70-[address] [facility] Comment on above: Performed By: #### L [id number] #### [facility] ([facility]) [address] [place] [address] Potassium [Moles/Vol] 4.2 mmol/L Normal 3.5-5.1 [facility] Comment on above: Performed By: #### L [id number] #### [facility] ([facility]) [address] [place] [address] Sodium [Moles/Vol] 137 mmol/L Normal 136-[address] [facility] Comment on above: Performed By: #### L [id number] #### [facility] ([facility]) [address] [place] [address] Urea nitrogen [Mass/Vol] 16 mg/dL Normal 7-25 [facility] Comment on above: Performed By: #### L [id number] #### [facility] ([facility]) [address] [place] [address] UREA NITROGEN/CREATININE (MASS RATIO) IN SER/PLAS 15.2 Normal [facility] Comment on above: Performed By: #### L [id number] #### [facility] ([facility]) [address] [place] [address] CBCon 03-01-2024 Erythrocyte distribution width (RBC) [Ratio] 15.4 % High 11.5-15.0 [facility] Comment on above: Performed By: #### L [id number] #### [facility] ([facility]) [address] [place] [address] ERYTHROCYTE MEAN CORPUSCULAR HEMOGLOBIN CONCENTRATION (G/DL) BY AUTOMATED 35.6 g/dL High 32.0-35.0 [facility] Comment on above: Performed By: #### L [id number] #### [facility] ([facility]) [address] [place] [address] Hematocrit (Bld) [Volume fraction] 40.7 % Normal 39.0-55.0 [facility] Comment on above: Performed By: #### L [id number] #### [facility] ([facility]) [address] [place] [address] Hemoglobin (Bld) [Mass/Vol] 14.5 g/dL Normal 13.0-17.0 [facility] Comment on above: Performed By: #### L [id number] #### [facility] ([facility]) [address] [place] [address] MCH (RBC) [Entitic mass] 32.6 pg Normal 27.0-33.0 [facility] Comment on above: Performed By: #### L [id number] #### [facility] ([facility]) [address] [place] [address] MCV (RBC) [Entitic vol] 91.5 fL Normal 82.0-98.0 [facility] Comment on above: Performed By: #### L [id number] #### [facility] ([facility]) [address] [place] [address] PLATELETS (10*3/UL) IN BLOOD AUTOMATED COUNT 141 10*3/uL Low 150-400 [facility] Comment on above: Performed By: #### L [id number] #### [facility] ([facility]) [address] [place] [address] RBC (Bld) [#/Vol] 4.45 10*6/uL Normal 4.20-5.70 [facility] Comment on above: Performed By: #### L [id number] #### [facility] ([facility]) [address] [place] [address] WBC (Bld) [#/Vol] 5.22 10*3/uL Normal 4.00-10.60 [facility] Comment on above: Performed By: #### L [id number] #### [facility] (BEROBERT) [address] [place] [address] Labon 03-01-2024 Lab [id number] Ben Streeter rt W 1955 M Date Provider Department Center 03/01/2024 2245-[facility] OPD LAB RESOURCE [facility] OPD MD Medical C Family History Problem Relation Age of Onset Colon cancer Brother Family Status - Relation Status Age at Brother Normal [facility] Office Visiton 03-01-2024 Follow-up visit [id number] Ben Streeter rt W 1955 M Date Provider Department Center 03/01/2024 241-[facility] C[facility] MD [facility] Family History Problem Relation Age of Onset Colon cancer Brother Family Status - Relation Status Age at Brother Level of Service:58798 [place] OFFICE/OUTPATIENT ESTABLISHED HIGH MDM 40 MIN Normal [facility] PROTIME-INRon 03-01-2024 INR IN PPP BY COAGULATION ASSAY 1.01 Normal 0.90-1.10 [facility] Comment on above: Result Comment: ACCC P RECOMMENDED INR FOR WARFARIN THERAPY CONDITION INR PROPHYLAXIS OF VENOUS THROMBOSIS 2-3 (HIGH-RISK SURGERY) TREATMENT OF VENOUS THROMBOSIS 2-3 TREATMENT OF PULMONARY EMBOLISM 2-3 PREVENTION OF SYSTEMIC EMBOLISM: 2-3 ACUTE MYOCARDIAL INFARCTION TISSUE HEART VALVES VALVULAR HEART DISEASE ATRIAL FIBRILLATION RECURRENT SYSTEMIC EMBOLISM MECHANICAL HEART VALVE 2.5-3.5 FROM: ORAL ANTICOAGULANTS. MECHANISM OF ACTION, CLINICAL EFFECTIVENESS, AND OPTIMAL THERAPEUTIC RANGE. CHEST 1995;108:231S-246S. Performed By: #### L [id number] ####[facility] (BEAKER)[address] [place] [address] PROTHROMBIN TIME (PT) IN PPP BY COAGULATION ASSAY 13.3 Seconds Normal 12.3-14.8 [facility] Comment on above: Performed By: #### L [id number] ####[facility] (BEAKER)[address] [place] [address] Letter (Out)on 02-29-2024 Letter (Out) [id number] Ben Streeter rt W 1955 M Date Provider Department Center 02/29/2024 None-None [facility] AUTH MD Medical C Family History Problem Relation Age of Onset Colon cancer Brother Family Status - Relation Status Age at Brother Normal [facility] Prep for Procedureon 024 Prep for Procedure [id number] Ben Streeter rt W 1955 M Date Provider Department Center 02/04/2024 Michael-BLAKE JASON [facility] MD [facility] Family History Problem Relation Age of Onset Colon cancer Brother Family Status - Relation Status Age at Brother Normal [facility] [id number] 01-26-2024 [id number] ARRIVAL TIME 1030 GI BRANDO HOLD ELIQUIS 01/31 MEDICATIONS TO TAKE DAY OF SURGERY WITH SIP OF WATER ALLOPURINOL AMIODARONE METOPROLOL HOLD VITAMINS AND SUPPLEMENTS 5 DAYS PRIOR TO PROCEDURE HOLD ALL ANTI INFLAMMATORIES ETC:MOTRIN, ADVIL, ALEVE, FOR 5 DAYS PRIOR TO PROCEDURE IF YOU ARE GOING HOME AFTER YOUR SURGERY OR PROCEDURE, FOR YOUR SAFETY, YOUR SURGERY WILL BE CANCELLED IF BOTH OF THE FOLLOWING ARE NOT AVAILABLE: An adult class a regional drivers over the age of 18, that can receive information about your care after surgery, and drive you home. A responsible adult to stay with you for 24 hours in case of an emergency. Can be same as above. The highest risk of complications is within the first 24 hours after sedation/anesthesia. Nothing to eat or drink after midnight the night before surgery. This includes gum, candy, mints, and lozenges. No alcohol, marijuana, or tobacco products including vaping for 24 hours. Please brush your teeth; don't swallow the toothpaste or water. If you use dentures, wear them but do not use paste. Please leave any other removable dental hardware at home. Do not put in contact lenses. Do not wear perfume, make-up, nail maltese, or lotions on the day of your surgery or procedure. Follow skin-prep/wipe instructions as below if required. Bring with you: *Insurance card *Photo ID *Medication list *Co-pay for visit/prescriptions If applicable: *Rescue inhalers *Green bracelet from lab *CPAP or BiPAP machine, if staying overnight *Any braces, splints, or equipment ordered preoperatively *Remote controls for implanted devices Leave at home: *Purse/Wallet/Blue- unless needed for co-pay *Cell phone (can leave with family/friend or place in locker if needed) *Jewelry (including piercings and wedding bands) *If not possible, ask the person who is waiting with you to keep them Children under the age of 12 will not be allowed into patient care areas. We will call you between 3pm and 4pm the day before your surgery to give you an arrival time. If you do not receive this call, have any questions, or need to make any changes, please call [phone]. Notify your surgeon if you develop any illness such as a cold, cough, fever, sore throat or vomiting between now and your surgery. Thank you for entrusting us with your care. [facility] Surgical Services Team Normal [facility] CTA CHEST W IV CONTRASTon CTA CHEST W IV CONTRAST CTA CHEST W IV CONTRAST 01/26/2024 9:27 AM CLINICAL INDICATIONS: Paroxysmal atrial fibrillation. Preablation evaluation. PROTOCOL: Gated chest CTA CONTRAST: 100 mL Omnipaque 350 TECHNIQUE: Multidetector CT axial slices of the chest were obtained with IV contrast. Multiplanar reformats were performed and viewed on a separate workstation and reviewed to further define anatomy and possible pathology. 3-D volume rendered images of the left atrium and draining pulmonary veins as well as left atrial appendage are obtained in various projections and saved on PACS All CT scans at this facility use dose modulation, iterative reconstruction, and/or weight based dosing when appropriate to reduce radiation dose to as low as reasonably achievable. COMPARISON: None. FINDINGS: Lower neck: Visualized part of the Thyroid gland within normal limits, no supraclavicle adenopathy. Vessels: Pulmonary arteries are Within normal limits. Minimal atherosclerotic changes in the aorta. and coronary arteries. Mediastinum and Rocío: Few small nonspecific mediastinal lymph nodes are visualized, none pathologic by size criteria. No hilar adenopathy. Small calcified right hilar granulomatous lymph node. Heart: Normal size. No pericardial effusion. Airways: Within normal limits Lungs: 5 mm calcified granuloma in the superior segment of the right lower lobe in axial image 170 series 8. Otherwise, unremarkable bilateral lungs. Pleura: Within normal limits. Chest Wall: Within normal limits. Upper Abdomen: Bilateral renal cysts and the largest is seen on the right side. Diffuse diminished attenuation of the liver suggesting hepatic steatosis. Bones: Bony spurring in the lower cervical and thoracic spine suggesting mild spondylosis. No acute bony abnormality. There is normal size and confirmation of the left atrium which measures maximum transverse dimensions of 6.9 x 4.1 cm. Left atrial appendage is visualized with no filling defects appreciated. The ostium of the appendage measures 1.6 cm in diameter and it measures 5.2 cm in length. Left superior pulmonary vein is 1.3 cm in diameter and first branch is approximately 4 cm from the ostium. The left inferior pulmonary vein ostium is 1.6 cm in diameter and first branch is approximately 3.9 cm from the ostium. The right superior pulmonary vein ostium is 1.6 cm in diameter and first branch is approximately 3.9 cm from the ostium. The right inferior pulmonary vein ostium is 1.6 cm in diameter and first branch is approximately 2 cm from the ostium. Contrast-filled esophagus is seen immediately posterior to the left atrium and adjacent to the ostium of the left inferior pulmonary vein. IMPRESSION: 3-D volume rendered images of the left atrium, pulmonary veins and left atrial appendage are obtained in various projections. Measurements as listed above. Small calcified granuloma in the superior segment of the right lower lobe with small calcified right hilar granulomatous lymph node. Mild thoracic spondylosis. Bilateral renal cysts. Electronically signed: Ivan Sequeira. [facility] Comment on above: Order Comment: Matias salazar schedule prior to February 02 Office Visiton 01-12-2024 Follow-up visit [id number] Ben Streeter 1955 [facility] Provider Department Center 01/12/2024 Chencho-MEET SCHMIDT [facility] Family History Problem Relation Age of Onset Colon cancer Brother Family Status - Relation Status Age at Brother Level of Service:12986 [place] OFFICE/OUTPATIENT ESTABLISHED HIGH MDM 40 MIN Normal [facility] Prep for Procedureon 024 Prep for Procedure [id number] Ben Streeter rt W 1955 M Date Provider Department Center 12/14/2023 1987-[facility]LA[facility] JASON [facility] MD [facility] Family History Problem Relation Age of Onset Colon cancer Brother Family Status - Relation Status Age at Brother Normal [facility] Orders Onlyon 12-13-2023 Orders Only [id number] Ben Streeter rt W 1955 M Date Provider Department [place] 12/13/2023 Alayna-[facility] MD [facility] Family History Problem Relation Age of Onset Colon cancer Brother Family Status - Relation Status Age at Brother Normal [facility] Telemedicineon 12-07-2023 Telemedicine [id number] Ben Streeter rt W 1955 M Date Provider Department Center 12/07/2023 241-HOOD FELICIANO CARD [facility] Family History Problem Relation Age of Onset Colon cancer Brother Family Status - Relation Status Age at Brother Level of Service:53067 [place] PHYS/QHP TELEPHONE EVALUATION 11-20 MIN [facility] 36on 11-05-2023 36 I dont see a specifi c reason why he could not be started on it so should be fine Normal [facility] Telephoneon 11-04-2023 Telephone [id number] Ben Streeter rt W 1955 M Date Provider Department Center 11/04/2023 Arash5-MONICA DACOSTA CARD [facility] Family History Problem Relation Age of Onset Colon cancer Brother Family Status - Relation Status Age at Brother Normal [facility] Office Visiton 10-22-2023 Follow-up visit [id number] Ben Streeter rt W 1955 M Date Provider Department Center 10/22/2023 1596-MEET SCHMIDT CARD [facility] Family History Problem Relation Age of Onset Colon cancer Brother Family Status - Relation Status Age at Brother Level of Service:34935 [place] OFFICE/OUTPATIENT ESTABLISHED MOD MDM 30 MIN Normal [facility] Office Visiton 08-30-2023 Follow-up visit [id number] Ben Streeter rt W 1955 M Date Provider Department Center 08/30/2023 [id number] EDUARDO HIDALGO CARD [facility] Family History Problem Relation Age of Onset Colon cancer Brother Family Status - Relation Status Age at Brother Level of Service:02811 [place] OFFICE/OUTPATIENT ESTABLISHED MOD MDM 30-39 MIN Normal [facility] ECHOCARDIO M/2D COMPLETEon 0 03-01-2023 ECHOCARDIO M/2D COMPLETE Patient: GARRY STREETER Exam Date: 03/01/2023 : 1955 Gender:M Ordering : SARAH RAMIREZ Admission #: [id number] Family : WARREN 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 on 03/01/2023 at 09:21 Normal [facility] BNPon 01-15-2023 Natriuretic peptide B (Bld) [Mass/Vol] 20.0 pg/mL Normal <=900.0 [facility] [facility] Comment on above: Performed By: #### B HAM ROLLING MACHINE OPERATOR, MG, CMP #### [facility] [address] [place] [address] Dr. Miah Veloz HEMOGRAM AND PLATELon 2022 Hematocrit (Bld) [Volume fraction] 41.3 % Critically low 42.0-54.0 [facility] Comment on above: Performed By: #### B HAM ROLLING MACHINE OPERATOR, CMP, HSTROPN #### [facility] [address] [place] [address] Dr. Miah Veloz Hemoglobin (Bld) [Mass/Vol] 14.2 g/dL Normal 14.0-18.0 [facility] Comment on above: Performed By: #### B HAM ROLLING MACHINE OPERATOR, CMP, HSTROPN #### [facility] [address] [place] [address] Dr. Miah Veloz MCH (RBC) [Entitic mass] 31.5 pg Normal 25.9-34.0 [facility] Comment on above: Performed By: #### B HAM ROLLING MACHINE OPERATOR, CMP, HSTROPN #### [facility] [address] [place] [address] Dr. Miah Veloz MCHC (RBC) [Mass/Vol] 34.4 g/dL Normal 29.9-35.2 [facility] Comment on above: Performed By: #### B HAM ROLLING MACHINE OPERATOR, CMP, HSTROPN #### [facility] [address] [place] [address] Dr. Miah Veloz MCV (RBC) [Entitic vol] 91.6 fL Normal 80.0-94.0 [facility] Comment on above: Performed By: #### B HAM ROLLING MACHINE OPERATOR, CMP, HSTROPN #### [facility] [address] [place] [address] Dr. iMah Veloz PLT 173 103/ul Normal 150-450 [facility] Comment on above: Performed By: #### B HAM ROLLING MACHINE OPERATOR, CMP, HSTROPN #### [facility] [address] [place] [address] Dr. Miah Veloz RBC 4.51 106/ul Critically low 4.70-6.10 [facility] Comment on above: Performed By: #### B HAM ROLLING MACHINE OPERATOR, CMP, HSTROPN #### [facility] [address] [place] [address] Dr. Miah Veloz WBC 5.8 103/ul Normal 4.0-11.0 [facility] Comment on above: Performed By: #### B HAM ROLLING MACHINE OPERATOR, CMP, HSTROPN #### [facility] [address] [place] [address] Dr. Miah Veloz MAGNESIUMon 01-15-2023 Magnesium [Mass/Vol] 1.9 mg/dL Normal 1.8-2.4 [facility] Comment on above: Performed By: #### B HAM ROLLING MACHINE OPERATOR, MG, CMP #### [facility] [address] [place] [address] Dr. Miah Veloz PROF 14(COMP METB)on 023 Albumin [Mass/Vol] 3.8 g/dL Normal 3.4-5.0 [facility] Comment on above: Performed By: #### B HAM ROLLING MACHINE OPERATOR, MG, CMP #### [facility] [address] [place] [address] Dr. Miah Veloz Albumin/Globulin [Mass ratio] 0.9 {ratio} Normal [facility] Comment on above: Performed By: #### B HAM ROLLING MACHINE OPERATOR, MG, CMP #### [facility] [address] [place] [address] Dr. Miah Veloz ALP [Catalytic activity/Vol] 86 U/L Normal 46-116 [facility] Comment on above: Performed By: #### B HAM ROLLING MACHINE OPERATOR, MG, CMP #### [facility] [address] [address] [address] Miah Veloz ALT [Catalytic activity/Vol] 26 U/L Normal 16-63 [facility] Comment on above: Performed By: #### B HAM ROLLING MACHINE OPERATOR, MG, CMP #### [facility] [address] [place] [address] Dr. Miah Veloz Anion gap [Moles/Vol] 11.3 mmol/L Normal [facility] Comment on above: Performed By: #### B HAM ROLLING MACHINE OPERATOR, MG, CMP #### [facility] [address] [place] [address] Dr. Miah Veloz AST [Catalytic activity/Vol] 18 U/L Normal 15-37 [facility] Comment on above: Performed By: #### B HAM ROLLING MACHINE OPERATOR, MG, CMP #### [facility] [address] [place] [address] Dr. Miah Veloz Bilirubin [Mass/Vol] 0.6 mg/dL Normal 0.2-1.0 [facility] Comment on above: Performed By: #### B HAM ROLLING MACHINE OPERATOR, MG, CMP #### [facility] [address] [place] [address] Dr. Miah Veloz Calcium [Mass/Vol] 9.4 mg/dL Normal 8.5-10.1 [facility] Comment on above: Performed By: #### B HAM ROLLING MACHINE OPERATOR, MG, CMP #### [facility] [address] [place] [address] Dr. Miah Veloz Chloride [Moles/Vol] 105 mmol/L Normal 98-107 [facility] Comment on above: Performed By: #### B HAM ROLLING MACHINE OPERATOR, MG, CMP #### [facility] [address] [place] [address] Dr. Miah Veloz CO2 [Moles/Vol] 30.2 mmol/L Normal 21.0-32.0 [facility] Comment on above: Performed By: #### B HAM ROLLING MACHINE OPERATOR, MG, CMP #### [facility] [address] [place] [address] Dr. Miah Veloz Creatinine [Mass/Vol] 0.88 mg/dL Normal 0.70-1.30 [facility] Comment on above: Performed By: #### B HAM ROLLING MACHINE OPERATOR, MG, CMP #### [facility] [address] [address] [address] Miah Veloz EGFR-AF BHUTANESE >60 Normal >=60 [facility] Comment on above: Performed By: #### B HAM ROLLING MACHINE OPERATOR, MG, CMP #### [facility] [address] [address] [address] Miah Veloz EGFR-NON AF BHUTANESE >60 Normal >=60 [facility] Comment on above: Performed By: #### B HAM ROLLING MACHINE OPERATOR, MG, CMP #### [facility] [address] [address] [address] Miah Veloz Globulin (S) [Mass/Vol] 4.1 g/dL Normal [facility] Comment on above: Performed By: #### B HAM ROLLING MACHINE OPERATOR, MG, CMP #### [facility] [address] [place] [address] Dr. Miah Veloz Glucose [Mass/Vol] 98 mg/dL Normal 74-106 [facility] Comment on above: Performed By: #### B HAM ROLLING MACHINE OPERATOR, MG, CMP #### [facility] [address] [place] [address] Dr. Miah Veloz Potassium [Moles/Vol] 4.5 mmol/L Normal 3.5-5.1 [facility] Comment on above: Performed By: #### B HAM ROLLING MACHINE OPERATOR, MG, CMP #### [facility] [address] [address] [address] Miah Veloz Protein [Mass/Vol] 7.9 g/dL Normal 6.4-8.2 [facility] Comment on above: Performed By: #### B HAM ROLLING MACHINE OPERATOR, MG, CMP #### [facility] [address] [address] [address] Miah Veloz Sodium [Moles/Vol] 142 mmol/L Normal 136-145 [facility] Comment on above: Performed By: #### B HAM ROLLING MACHINE OPERATOR, MG, CMP #### [facility] [address] [address] [address] Miah Veloz Urea nitrogen [Mass/Vol] 15.0 mg/dL Normal 7.0-18.0 [facility] Comment on above: Performed By: #### B HAM ROLLING MACHINE OPERATOR, MG, CMP #### [facility] [address] [place], [place] [address] Dr. Miah Veloz Urea nitrogen/Creatinine [Mass ratio] 17.0 mg/mg Normal [facility] Comment on above: Performed By: #### B HAM ROLLING MACHINE OPERATOR, MG, CMP #### [facility] [address] [place], [place] [address] Dr. Miah Veloz XR CHEST 2 Von [...] LUZMA PHAM Date: 2023-01-15 12:47 Normal [facility] SURGICAL PATH REPORTon 10-29 SURGICAL PATH REPORT [facility] Department of Pathology [address] [place] [id number] Name: GARRY STREETER : 1955 [facility] [phone] Number: Gender Male [facility] : n: Admit 67 years Attending [place] Age: Provider: Ordering TAVIA [place] Provider: Consulti Surgical Pathology Report ng: ACCESSION: COLLECTED DATE/TIME: RECEIVED DATE/TIME: PATHOLOGIST: [id number] 10/28/2022 11:24 EST 10/28/2022 11:24 EST MATT PELAEZ MD Final Diagnosis Report for [facility], [place] (A) SIGMOID POLYP AT 40 CM: [...] ____ Print 10/29/2022 14:17 EST Number: Date/Time: [facility] Department of Pathology [address] [place], [place] [id number] [phone] Name: GARRY STREETER : 1955 [facility] [phone] Number: [facility] : n: Admit 67 years Attending TAVIA [place] Age: Provider: Ordering TAVIA [place] Provider: Consulti Surgical Pathology Report ng: ACCESSION: COLLECTED DATE/TIME: RECEIVED DATE/TIME: PATHOLOGIST: [id number] 10/28/2022 11:24 EST 10/28/2022 11:24 EST MATT [...] MP/ald 10/28/2022 Tissue pathology report for: [facility], [address] [place] [address], [place] [address]; PATHOLOGY SERVICES PROVIDED BY [employer] (CLIA #[id number]) in cooperation with [facility] at [address] [place] [address] ( CLIA #[id number]) Codes CPT CODE: 53937B1 ____ Print 10/29/2022 14:17 EST Number: Date/Time: Normal [facility] Comment on above: Performed By: #### [id number] #### [facility] [address] [place] [address] Tab Builder: Matt Pelaez MD [facility]on SARS-CoV-2 (COVID-19) RNA GÓMEZ+probe Ql (Unsp spec) Not detected Normal NOT DETECTED [facility] Comment on above: Result Comment: This test is not yet approved or cleared by the [place] FDA. When there are no FDA-approved or cleared tests available, and other criteria are met, FDA can make tests available under an emergency access mechanism called an Emergency Use Authorization (EUA). The EUA for this test is supported by the Guy of Health and Human Service's (HHS's) declaration [...] SARS-CoV-2. Performed By: #### C VDTBH #### [facility] [address] [place] [address] Dr. Miah Veloz CBC AUTO DIFFon 08-10-2022 BASO # 0.1 103/ul Normal 0.0-0.1 [facility] Comment on above: Performed By: #### B HAM ROLLING MACHINE OPERATOR, CMP, HSTROPN #### [facility] [address] [place] [address] Dr. Miah Veloz Basophils/100 WBC (Bld) 0.7 % Normal 0.2-2.0 [facility] Comment on above: Performed By: #### B HAM ROLLING MACHINE OPERATOR, CMP, HSTROPN #### [facility] [address] [place] [address] Dr. Miah Veloz EO # 0.4 103/ul Normal 0.0-0.7 [facility] Comment on above: Performed By: #### B HAM ROLLING MACHINE OPERATOR, CMP, HSTROPN #### [facility] [address] [place] [address] Dr. Miah Veloz Eosinophils/100 WBC (Bld) 4.1 % Normal 0.9-7.0 [facility] Comment on above: Performed By: #### B HAM ROLLING MACHINE OPERATOR, CMP, HSTROPN #### [facility] [address] [place] [address] Dr. Miah Veloz Erythrocyte distribution width (RBC) [Ratio] 16.0 % Critically high 11.0-15.0 [facility] Comment on above: Performed By: #### B HAM ROLLING MACHINE OPERATOR, CMP, HSTROPN #### [facility] [address] [place] [address] Dr. Miah Veloz Hematocrit (Bld) [Volume fraction] 41.2 % Critically low 42.0-54.0 [facility] Comment on above: Performed By: #### B HAM ROLLING MACHINE OPERATOR, CMP, HSTROPN #### [facility] [address] [place] [address] Dr. Miah Veloz Hemoglobin (Bld) [Mass/Vol] 14.1 g/dL Normal 14.0-18.0 [facility] Comment on above: Performed By: #### B HAM ROLLING MACHINE OPERATOR, CMP, HSTROPN #### [facility] [address] [place] [address] Dr. Miah Veloz IG # 0.03 10e3/ul Normal 0.00-0.03 [facility] Comment on above: Performed By: #### B HAM ROLLING MACHINE OPERATOR, CMP, HSTROPN #### [facility] [address] [place] [address] Dr. Miah Velzo IG % 0.3 % Normal 0.0-0.5 [facility] Comment on above: Performed By: #### B HAM ROLLING MACHINE OPERATOR, CMP, HSTROPN #### [facility] [address] [place] [address] Dr. Miah Veloz LYMPH # 2.8 103/ul Normal 1.2-3.8 [facility] Comment on above: Performed By: #### B HAM ROLLING MACHINE OPERATOR, CMP, HSTROPN #### [facility] [address] [place] [address] Dr. Miah Veloz Lymphocytes/100 WBC (Bld) 28.5 % Normal 20.5-60.0 [facility] Comment on above: Performed By: #### B HAM ROLLING MACHINE OPERATOR, CMP, HSTROPN #### [facility] [address] [place] [address] Dr. Miah Veloz MANUAL DIFF REQ NO Normal [facility] Comment on above: Performed By: #### B HAM ROLLING MACHINE OPERATOR, CMP, HSTROPN #### [facility] [address] [place] [address] Dr. Miah Veloz MCH (RBC) [Entitic mass] 32.4 pg Normal 25.9-34.0 [facility] Comment on above: Performed By: #### B HAM ROLLING MACHINE OPERATOR, CMP, HSTROPN #### [facility] [address] [place] [address] Dr. Miah Veloz MCHC (RBC) [Mass/Vol] 34.2 g/dL Normal 29.9-35.2 [facility] Comment on above: Performed By: #### B HAM ROLLING MACHINE OPERATOR, CMP, HSTROPN #### [facility] [address] [place] [address] Dr. Miah Veloz MCV (RBC) [Entitic vol] 94.7 fL Critically high 80.0-94.0 [facility] Comment on above: Performed By: #### B HAM ROLLING MACHINE OPERATOR, CMP, HSTROPN #### [facility] [address] [place] [address] Dr. Miah Veloz MONO # 0.8 103/ul Normal 0.3-0.8 [facility] Comment on above: Performed By: #### B HAM ROLLING MACHINE OPERATOR, CMP, HSTROPN #### [facility] [address] [place] [address] Dr. Miah Veloz Monocytes/100 WBC (Bld) 7.6 % Normal 1.7-12.0 [facility] Comment on above: Performed By: #### B HAM ROLLING MACHINE OPERATOR, CMP, HSTROPN #### [facility] [address] [place] [address] Dr. Miah Veloz NEUT # 5.8 103/ul Normal 1.4-6.5 [facility] Comment on above: Performed By: #### B HAM ROLLING MACHINE OPERATOR, CMP, HSTROPN #### [facility] [address] [place] [address] Dr. Miah Veloz Neutrophils/100 WBC (Bld) 58.8 % Normal 43.0-75.0 [facility] Comment on above: Performed By: #### B HAM ROLLING MACHINE OPERATOR, CMP, HSTROPN #### [facility] [address] [place] [address] Dr. Miah Veloz Platelet mean volume (Bld) [Entitic vol] 10.3 fL Normal 9.5-13.5 [facility] Comment on above: Performed By: #### B HAM ROLLING MACHINE OPERATOR, CMP, HSTROPN #### [facility] [address] [place] [address] Dr. Miah Veloz PLT 184 103/ul Normal 150-450 [facility] Comment on above: Performed By: #### B HAM ROLLING MACHINE OPERATOR, CMP, HSTROPN #### [facility] [address] [address] [address] Miah Veloz RBC 4.35 106/ul Critically low 4.70-6.10 [facility] Comment on above: Performed By: #### B HAM ROLLING MACHINE OPERATOR, CMP, HSTROPN #### [facility] [address] [address] [address] Miah Veloz WBC 9.9 103/ul Normal 4.0-11.0 [facility] Comment on above: Performed By: #### B HAM ROLLING MACHINE OPERATOR, CMP, HSTROPN #### [facility] [address] [address] [address] Miah Veloz PROF CHEM 8 (BAS METB)on Anion gap [Moles/Vol] 13.2 mmol/L Normal [facility] Comment on above: Performed By: #### B HAM ROLLING MACHINE OPERATOR, CMP, HSTROPN #### [facility] [address] [address] [address] Miah Veloz Calcium [Mass/Vol] 8.8 mg/dL Normal 8.5-10.1 [facility] Comment on above: Performed By: #### B HAM ROLLING MACHINE OPERATOR, CMP, HSTROPN #### [facility] [address] [address] [address] Miah Veloz Chloride [Moles/Vol] 107 mmol/L Normal 98-107 [facility] Comment on above: Performed By: #### B HAM ROLLING MACHINE OPERATOR, CMP, HSTROPN #### [facility] [address] [address] [address] Miah Veloz CO2 [Moles/Vol] 25.5 mmol/L Normal 21.0-32.0 [facility] Comment on above: Performed By: #### B HAM ROLLING MACHINE OPERATOR, CMP, HSTROPN #### [facility] [address] [address] [address] Miah Veloz Creatinine [Mass/Vol] 1.37 mg/dL Critically high 0.70-1.30 [facility] Comment on above: Performed By: #### B HAM ROLLING MACHINE OPERATOR, CMP, HSTROPN #### [facility] [address] [address] [address] Miah Veloz EGFR-AF BHUTANESE >60 Normal >=60 [facility] Comment on above: Performed By: #### B HAM ROLLING MACHINE OPERATOR, CMP, HSTROPN #### [facility] [address] [address] [address] Miah Veloz EGFR-NON AF BHUTANESE 52 mL/min/1.73m2 Critically low >=60 [facility] Comment on above: Performed By: #### B HAM ROLLING MACHINE OPERATOR, CMP, HSTROPN #### [facility] [address] [place] [address] Dr. Miah Veloz Glucose [Mass/Vol] 103 mg/dL Normal 74-106 [facility] Comment on above: Performed By: #### B HAM ROLLING MACHINE OPERATOR, CMP, HSTROPN #### [facility] [address] [place] [address] Dr. Miah Veloz Potassium [Moles/Vol] 4.7 mmol/L Normal 3.5-5.1 [facility] Comment on above: Performed By: #### B HAM ROLLING MACHINE OPERATOR, CMP, HSTROPN #### [facility] [address] [place] [address] Dr. Miah Veloz Sodium [Moles/Vol] 141 mmol/L Normal 136-145 [facility] Comment on above: Performed By: #### B HAM ROLLING MACHINE OPERATOR, CMP, HSTROPN #### [facility] [address] [place] [address] Dr. Miah Veloz Urea nitrogen [Mass/Vol] 32.0 mg/dL Critically high 7.0-18.0 [facility] Comment on above: Performed By: #### B HAM ROLLING MACHINE OPERATOR, CMP, HSTROPN #### [facility] [address] [place] [address] Dr. Miah Veloz Urea nitrogen/Creatinine [Mass ratio] 23.4 mg/mg Normal [facility] Comment on above: Performed By: #### B HAM ROLLING MACHINE OPERATOR, CMP, HSTROPN #### [facility] [address] [place], [place] [address] Dr. Miah Veloz ECHOCARDIO M/2D COMPLETEon 0 08-05-2022 ECHOCARDIO M/2D COMPLETE Patient: GARRY STREETER Exam Date: 08/05/2022 : 1955 Gender:M Ordering : TACHO HOLLAND Admission #: [id number] Family : Order #: [id number] CLICK HERE TO VIEW EXAM ECHOCARDIOGRAM REPORT [...] M.D. on 08/05/2022 at 14:32 Normal [facility] PROF 14(COMP METB)on 022 Albumin [Mass/Vol] 3.4 g/dL Normal 3.4-5.0 [facility] Comment on above: Performed By: #### B HAM ROLLING MACHINE OPERATOR, CMP, HSTROPN #### [facility] [address] [place] [address] Dr. Miah Veloz Albumin/Globulin [Mass ratio] 0.9 {ratio} Normal [facility] Comment on above: Performed By: #### B HAM ROLLING MACHINE OPERATOR, CMP, HSTROPN #### [facility] [address] [place] [address] Dr. Miah Veloz ALP [Catalytic activity/Vol] 73 U/L Normal 46-116 [facility] Comment on above: Performed By: #### B HAM ROLLING MACHINE OPERATOR, CMP, HSTROPN #### [facility] [address] [address] [address] Miah Veloz ALT [Catalytic activity/Vol] 31 U/L Normal 16-63 [facility] Comment on above: Performed By: #### B HAM ROLLING MACHINE OPERATOR, CMP, HSTROPN #### [facility] [address] [place] [address] Dr. Miah Veloz Anion gap [Moles/Vol] 13.6 mmol/L Normal [facility] Comment on above: Performed By: #### B HAM ROLLING MACHINE OPERATOR, CMP, HSTROPN #### [facility] [address] [place] [address] Dr. Miah Veloz AST [Catalytic activity/Vol] 14 U/L Critically low 15-37 [facility] Comment on above: Performed By: #### B HAM ROLLING MACHINE OPERATOR, CMP, HSTROPN #### [facility] [address] [address] [address] Miah Veloz Bilirubin [Mass/Vol] 0.6 mg/dL Normal 0.2-1.0 [facility] Comment on above: Performed By: #### B HAM ROLLING MACHINE OPERATOR, CMP, HSTROPN #### [facility] [address] [place] [address] Dr. Miah Veloz Calcium [Mass/Vol] 8.8 mg/dL Normal 8.5-10.1 [facility] Comment on above: Performed By: #### B HAM ROLLING MACHINE OPERATOR, CMP, HSTROPN #### [facility] [address] [place] [address] Dr. Miah Veloz Chloride [Moles/Vol] 105 mmol/L Normal 98-107 [facility] Comment on above: Performed By: #### B HAM ROLLING MACHINE OPERATOR, CMP, HSTROPN #### [facility] [address] [place] [address] Dr. Miah Veloz CO2 [Moles/Vol] 27.7 mmol/L Normal 21.0-32.0 [facility] Comment on above: Performed By: #### B HAM ROLLING MACHINE OPERATOR, CMP, HSTROPN #### [facility] [address] [place] [address] Dr. Miah Veloz Creatinine [Mass/Vol] 1.17 mg/dL Normal 0.70-1.30 [facility] Comment on above: Performed By: #### B HAM ROLLING MACHINE OPERATOR, CMP, HSTROPN #### [facility] [address] [place] [address] Dr. Miah Veloz EGFR-AF BHUTANESE >60 Normal >=60 [facility] Comment on above: Performed By: #### B HAM ROLLING MACHINE OPERATOR, CMP, HSTROPN #### [facility] [address] [place] [address] Dr. Miah Veloz EGFR-NON AF BHUTANESE >60 Normal >=60 [facility] Comment on above: Performed By: #### B HAM ROLLING MACHINE OPERATOR, CMP, HSTROPN #### [facility] [address] [address] [address] Miah Veloz Globulin (S) [Mass/Vol] 3.9 g/dL Normal [facility] Comment on above: Performed By: #### B HAM ROLLING MACHINE OPERATOR, CMP, HSTROPN #### [facility] [address] [address] [address] Miah Veloz Glucose [Mass/Vol] 138 mg/dL Critically high 74-106 [facility] Comment on above: Performed By: #### B HAM ROLLING MACHINE OPERATOR, CMP, HSTROPN #### [facility] [address] [place] [address] Dr. Miah Veloz Potassium [Moles/Vol] 4.3 mmol/L Normal 3.5-5.1 [facility] Comment on above: Performed By: #### B HAM ROLLING MACHINE OPERATOR, CMP, HSTROPN #### [facility] [address] [place] [address] Dr. Miah Veloz Protein [Mass/Vol] 7.3 g/dL Normal 6.4-8.2 [facility] Comment on above: Performed By: #### B HAM ROLLING MACHINE OPERATOR, CMP, HSTROPN #### [facility] [address] [place] [address] Dr. Miah Veloz Sodium [Moles/Vol] 142 mmol/L Normal 136-145 [facility] Comment on above: Performed By: #### B HAM ROLLING MACHINE OPERATOR, CMP, HSTROPN #### [facility] [address] [address] [address] Miah Veloz Urea nitrogen [Mass/Vol] 25.0 mg/dL Critically high 7.0-18.0 [facility] Comment on above: Performed By: #### B HAM ROLLING MACHINE OPERATOR, CMP, HSTROPN #### [facility] [address] [place] [address] Dr. Miah Veloz Urea nitrogen/Creatinine [Mass ratio] 21.4 mg/mg Normal [facility] Comment on above: Performed By: #### B HAM ROLLING MACHINE OPERATOR, CMP, HSTROPN #### [facility] [address] [place] [address] [address] Miah Veloz [place] BRANDO DOP LEG [...] MURPHY GRIFFIN Date: 2022-05-14 16:51 Normal [facility] CBC AUTO DIFFon 04-28-2022 BASO # 0.1 103/ul Normal 0.0-0.1 [facility] Comment on above: Performed By: #### C BC #### [facility] [address] [place] [address] Dr. Miah Veloz Basophils/100 WBC (Bld) 0.7 % Normal 0.2-2.0 [facility] Comment on above: Performed By: #### C BC #### [facility] [address] [place] [address] Dr. Miah Veloz EO # 0.2 103/ul Normal 0.0-0.7 [facility] Comment on above: Performed By: #### C BC #### [facility] [address] [address] [address] Miah Veloz Eosinophils/100 WBC (Bld) 2.9 % Normal 0.9-7.0 [facility] Comment on above: Performed By: #### C BC #### [facility] [address] [place] [address] Dr. Miah Veloz Erythrocyte distribution width (RBC) [Ratio] 13.2 % Normal 11.0-15.0 [facility] Comment on above: Performed By: #### C BC #### [facility] [address] [place] [address] Dr. Miah Veloz Hematocrit (Bld) [Volume fraction] 36.9 % Critically low 42.0-54.0 [facility] Comment on above: Performed By: #### C BC #### [facility] [address] [place] [address] Dr. Miah Veloz Hemoglobin (Bld) [Mass/Vol] 12.4 g/dL Critically low 14.0-18.0 [facility] Comment on above: Performed By: #### C BC #### [facility] [address] [place] [address] Dr. Miah Veloz IG # 0.03 10e3/ul Normal 0.00-0.03 [facility] Comment on above: Performed By: #### C BC #### [facility] [address] [place] [address] Dr. Miah Veloz IG % 0.4 % Normal 0.0-0.5 [facility] Comment on above: Performed By: #### C BC #### [facility] [address] [place] [address] Dr. Miah Veloz LYMPH # 1.8 103/ul Normal 1.2-3.8 [facility] Comment on above: Performed By: #### C BC #### [facility] [address] [place] [address] Dr. Miah Veloz Lymphocytes/100 WBC (Bld) 23.0 % Normal 20.5-60.0 [facility] Comment on above: Performed By: #### C BC #### [facility] [address] [place] [address] Dr. Miah Veloz MANUAL DIFF REQ NO Normal [facility] Comment on above: Performed By: #### C BC #### [facility] [address] [place] [address] Dr. Miah Veloz MCH (RBC) [Entitic mass] 32.3 pg Normal 25.9-34.0 [facility] Comment on above: Performed By: #### C BC #### [facility] [address] [place] [address] Dr. iMah Veloz MCHC (RBC) [Mass/Vol] 33.6 g/dL Normal 29.9-35.2 [facility] Comment on above: Performed By: #### C BC #### [facility] [address] [address] [address] Miah Veloz MCV (RBC) [Entitic vol] 96.1 fL Critically high 80.0-94.0 [facility] Comment on above: Performed By: #### C BC #### [facility] [address] [address] [address] Miah Veloz MONO # 0.8 103/ul Normal 0.3-0.8 [facility] Comment on above: Performed By: #### C BC #### [facility] [address] [place] [address] Dr. Miah Veloz Monocytes/100 WBC (Bld) 10.2 % Normal 1.7-12.0 [facility] Comment on above: Performed By: #### C BC #### [facility] [address] [place] [address] Dr. Miah Veloz NEUT # 4.8 103/ul Normal 1.4-6.5 [facility] Comment on above: Performed By: #### C BC #### [facility] [address] [place] [address] Dr. Miah Veloz Neutrophils/100 WBC (Bld) 62.8 % Normal 43.0-75.0 [facility] Comment on above: Performed By: #### C BC #### [facility] [address] [place] [address] Dr. Miah Veloz Platelet mean volume (Bld) [Entitic vol] 10.2 fL Normal 9.5-13.5 [facility] Comment on above: Performed By: #### C BC #### [facility] [address] [place] [address] Dr. Miah Veloz PLT 224 103/ul Normal 150-450 [facility] Comment on above: Performed By: #### C BC #### [facility] [address] [place] [address] Dr. Miah Veloz RBC 3.84 106/ul Critically low 4.70-6.10 [facility] Comment on above: Performed By: #### C BC #### [facility] [address] [place] [address] Dr. Miah Veloz WBC 7.7 103/ul Normal 4.0-11.0 [facility] Comment on above: Performed By: #### C BC #### [facility] [address] [place] [address] Dr. Miah Veloz PROF CHEM 8 (BAS METB)on Anion gap [Moles/Vol] 14.4 mmol/L Normal [facility] Comment on above: Performed By: #### B HAM ROLLING MACHINE OPERATOR, CMP, HSTROPN #### [facility] [address] [place] [address] Dr. Miah Veloz Calcium [Mass/Vol] 8.3 mg/dL Critically low 8.5-10.1 [facility] Comment on above: Performed By: #### B HAM ROLLING MACHINE OPERATOR, CMP, HSTROPN #### [facility] [address] [place] [address] Dr. Miah Veloz Chloride [Moles/Vol] 106 mmol/L Normal 98-107 [facility] Comment on above: Performed By: #### B HAM ROLLING MACHINE OPERATOR, CMP, HSTROPN #### [facility] [address] [place] [address] Dr. Miah Veloz CO2 [Moles/Vol] 27.0 mmol/L Normal 21.0-32.0 [facility] Comment on above: Performed By: #### B HAM ROLLING MACHINE OPERATOR, CMP, HSTROPN #### [facility] [address] [place] [address] Dr. Miah Veloz Creatinine [Mass/Vol] 1.12 mg/dL Normal 0.70-1.30 [facility] Comment on above: Performed By: #### B HAM ROLLING MACHINE OPERATOR, CMP, HSTROPN #### [facility] [address] [place] [address] Dr. Miah Veloz EGFR-AF BHUTANESE >60 Normal >=60 [facility] Comment on above: Performed By: #### B HAM ROLLING MACHINE OPERATOR, CMP, HSTROPN #### [facility] [address] [place] [address] Dr. Miah Veloz EGFR-NON AF BHUTANESE >60 Normal >=60 [facility] Comment on above: Performed By: #### B HAM ROLLING MACHINE OPERATOR, CMP, HSTROPN #### [facility] [address] [address] [address] Miah Veloz Glucose [Mass/Vol] 103 mg/dL Normal 74-106 [facility] Comment on above: Performed By: #### B HAM ROLLING MACHINE OPERATOR, CMP, HSTROPN #### [facility] [address] [place] [address] Dr. Miah Veloz Potassium [Moles/Vol] 3.4 mmol/L Critically low 3.5-5.1 [facility] Comment on above: Performed By: #### B HAM ROLLING MACHINE OPERATOR, CMP, HSTROPN #### [facility] [address] [place] [address] Dr. Miah Veloz Sodium [Moles/Vol] 144 mmol/L Normal 136-145 [facility] Comment on above: Performed By: #### B HAM ROLLING MACHINE OPERATOR, CMP, HSTROPN #### [facility] [address] [place] [address] Dr. Miah Veloz Urea nitrogen [Mass/Vol] 21.0 mg/dL Critically high 7.0-18.0 [facility] Comment on above: Performed By: #### B HAM ROLLING MACHINE OPERATOR, CMP, HSTROPN #### [facility] [address] [place] [address] Dr. Miah Veloz Urea nitrogen/Creatinine [Mass ratio] 18.8 mg/mg Normal [facility] Comment on above: Performed By: #### B HAM ROLLING MACHINE OPERATOR, CMP, HSTROPN #### [facility] [address] [place] [address] Dr. Miah Veloz CBC AUTO DIFFon 04-27-2022 BASO # 0.0 103/ul Normal 0.0-0.1 [facility] Comment on above: Performed By: #### B HAM ROLLING MACHINE OPERATOR, CMP, HSTROPN #### [facility] [address] [place] [address] Dr. Miah Veloz Basophils/100 WBC (Bld) 0.4 % Normal 0.2-2.0 [facility] Comment on above: Performed By: #### B HAM ROLLING MACHINE OPERATOR, CMP, HSTROPN #### [facility] [address] [place] [address] Dr. Miah Veloz EO # 0.2 103/ul Normal 0.0-0.7 [facility] Comment on above: Performed By: #### B HAM ROLLING MACHINE OPERATOR, CMP, HSTROPN #### [facility] [address] [place] [address] Dr. Miah Veloz Eosinophils/100 WBC (Bld) 3.2 % Normal 0.9-7.0 [facility] Comment on above: Performed By: #### B HAM ROLLING MACHINE OPERATOR, CMP, HSTROPN #### [facility] [address] [place] [address] Dr. Miah Veloz Erythrocyte distribution width (RBC) [Ratio] 13.6 % Normal 11.0-15.0 [facility] Comment on above: Performed By: #### B HAM ROLLING MACHINE OPERATOR, CMP, HSTROPN #### [facility] [address] [place] [address] Dr. Miah Veloz Hematocrit (Bld) [Volume fraction] 36.7 % Critically low 42.0-54.0 [facility] Comment on above: Performed By: #### B HAM ROLLING MACHINE OPERATOR, CMP, HSTROPN #### [facility] [address] [place] [address] Dr. Miah Veloz Hemoglobin (Bld) [Mass/Vol] 12.0 g/dL Critically low 14.0-18.0 [facility] Comment on above: Performed By: #### B HAM ROLLING MACHINE OPERATOR, CMP, HSTROPN #### [facility] [address] [place] [address] Dr. Miah Veloz IG # 0.02 10e3/ul Normal 0.00-0.03 [facility] Comment on above: Performed By: #### B HAM ROLLING MACHINE OPERATOR, CMP, HSTROPN #### [facility] [address] [place] [address] Dr. Miah Veloz IG % 0.3 % Normal 0.0-0.5 [facility] Comment on above: Performed By: #### B HAM ROLLING MACHINE OPERATOR, CMP, HSTROPN #### [facility] [address] [place] [address] Dr. Miah Veloz LYMPH # 1.6 103/ul Normal 1.2-3.8 [facility] Comment on above: Performed By: #### B HAM ROLLING MACHINE OPERATOR, CMP, HSTROPN #### [facility] [address] [place] [address] Dr. Miah Veloz Lymphocytes/100 WBC (Bld) 22.2 % Normal 20.5-60.0 [facility] Comment on above: Performed By: #### B HAM ROLLING MACHINE OPERATOR, CMP, HSTROPN #### [facility] [address] [place] [address] Dr. Miah Veloz MANUAL DIFF REQ NO Normal [facility] Comment on above: Performed By: #### B HAM ROLLING MACHINE OPERATOR, CMP, HSTROPN #### [facility] [address] [place] [address] Dr. Miah Veloz MCH (RBC) [Entitic mass] 32.3 pg Normal 25.9-34.0 [facility] Comment on above: Performed By: #### B HAM ROLLING MACHINE OPERATOR, CMP, HSTROPN #### [facility] [address] [place] [address] Dr. Miah Veloz MCHC (RBC) [Mass/Vol] 32.7 g/dL Normal 29.9-35.2 [facility] Comment on above: Performed By: #### B HAM ROLLING MACHINE OPERATOR, CMP, HSTROPN #### [facility] [address] [place] [address] Dr. Miah Veloz MCV (RBC) [Entitic vol] 98.7 fL Critically high 80.0-94.0 [facility] Comment on above: Performed By: #### B HAM ROLLING MACHINE OPERATOR, CMP, HSTROPN #### [facility] [address] [place] [address] Dr. Miah Veloz MONO # 0.7 103/ul Normal 0.3-0.8 [facility] Comment on above: Performed By: #### B HAM ROLLING MACHINE OPERATOR, CMP, HSTROPN #### [facility] [address] [place] [address] Dr. Miah Veloz Monocytes/100 WBC (Bld) 9.1 % Normal 1.7-12.0 [facility] Comment on above: Performed By: #### B HAM ROLLING MACHINE OPERATOR, CMP, HSTROPN #### [facility] [address] [place] [address] Dr. Miah Veloz NEUT # 4.6 103/ul Normal 1.4-6.5 [facility] Comment on above: Performed By: #### B HAM ROLLING MACHINE OPERATOR, CMP, HSTROPN #### [facility] [address] [place] [address] Dr. Miah Veloz Neutrophils/100 WBC (Bld) 64.8 % Normal 43.0-75.0 [facility] Comment on above: Performed By: #### B HAM ROLLING MACHINE OPERATOR, CMP, HSTROPN #### [facility] [address] [place] [address] Dr. Miah Veloz Platelet mean volume (Bld) [Entitic vol] 10.2 fL Normal 9.5-13.5 [facility] Comment on above: Performed By: #### B HAM ROLLING MACHINE OPERATOR, CMP, HSTROPN #### [facility] [address] [place] [address] Dr. Miah Veloz PLT 200 103/ul Normal 150-450 [facility] Comment on above: Performed By: #### B HAM ROLLING MACHINE OPERATOR, CMP, HSTROPN #### [facility] [address] [place] [address] Dr. Miah Veloz RBC 3.72 106/ul Critically low 4.70-6.10 [facility] Comment on above: Performed By: #### B HAM ROLLING MACHINE OPERATOR, CMP, HSTROPN #### [facility] [address] [place] [address] Dr. Miah Veloz WBC 7.1 103/ul Normal 4.0-11.0 [facility] Comment on above: Performed By: #### B HAM ROLLING MACHINE OPERATOR, CMP, HSTROPN #### [facility] [address] [place] [address] Dr. Miah Veloz ECHOCARDIO M/2D COMPLETEon 0 04-27-2022 ECHOCARDIO M/2D COMPLETE Patient: GARRY STREETER Exam Date: 04/27/2022 : 1955 Gender:M Ordering : DR ANDREI ORONA . Admission #: [id number] Family : Order #: [id number] CLICK HERE TO VIEW EXAM ECHOCARDIOGRAM REPORT [...] Area(A4C): 22.40 cm2 Left Atrium Systolic Volume(A2C): 39834 mm3 Left Atrium Systolic Volume(A4C): 58908 mm3 Mitral Valve Mitral Valve E-Wave Peak [...] Palacios M.D. on 04/27/2022 at 16:58 Normal [facility] PROF CHEM 8 (BAS METB)on Anion gap [Moles/Vol] 13.3 mmol/L Normal [facility] Comment on above: Performed By: #### B MP #### [facility] [address] [place] [address] Dr. Miah Veloz Calcium [Mass/Vol] 8.2 mg/dL Critically low 8.5-10.1 [facility] Comment on above: Performed By: #### B MP #### [facility] [address] [place] [address] Dr. Miah Veloz Chloride [Moles/Vol] 107 mmol/L Normal 98-107 [facility] Comment on above: Performed By: #### B MP #### [facility] [address] [place] [address] Dr. Miah Veloz CO2 [Moles/Vol] 27.5 mmol/L Normal 21.0-32.0 [facility] Comment on above: Performed By: #### B MP #### [facility] [address] [address] [address] Miah Veloz Creatinine [Mass/Vol] 0.97 mg/dL Normal 0.70-1.30 [facility] Comment on above: Performed By: #### B MP #### [facility] [address] [address] [address] Miah Veloz EGFR-AF BHUTANESE >60 Normal >=60 [facility] Comment on above: Performed By: #### B MP #### [facility] [address] [address] [address] Miah Veloz EGFR-NON AF BHUTANESE >60 Normal >=60 [facility] Comment on above: Performed By: #### B MP #### [facility] [address] [place] [address] Dr. Miah Veloz Glucose [Mass/Vol] 102 mg/dL Normal 74-106 [facility] Comment on above: Performed By: #### B MP #### [facility] [address] [place] [address] Dr. Miah Veloz Potassium [Moles/Vol] 3.8 mmol/L Normal 3.5-5.1 [facility] Comment on above: Performed By: #### B MP #### [facility] [address] [place] [address] Dr. Miah Veloz Sodium [Moles/Vol] 144 mmol/L Normal 136-145 [facility] Comment on above: Performed By: #### B MP #### [facility] [address] [place] [address] Dr. Miah Veloz Urea nitrogen [Mass/Vol] 17.0 mg/dL Normal 7.0-18.0 [facility] Comment on above: Performed By: #### B MP #### [facility] [address] [place] [address] Dr. Miah Veloz Urea nitrogen/Creatinine [Mass ratio] 17.5 mg/mg Normal [facility] Comment on above: Performed By: #### B MP #### [facility] [address] [place] [address] Dr. Miah Veloz BNPon 04-26-2022 Natriuretic peptide B (Bld) [Mass/Vol] 1105.0 pg/mL Critically high <=900.0 [facility] Comment on above: Performed By: #### B HAM ROLLING MACHINE OPERATOR, CMP, HSTROPN #### [facility] [address] [place] [address] Dr. Miah Veloz CBC AUTO DIFFon 04-26-2022 BASO # 0.0 103/ul Normal 0.0-0.1 [facility] Comment on above: Performed By: #### C BC #### [facility] [address] [place] [address] Dr. Miah Veloz Basophils/100 WBC (Bld) 0.6 % Normal 0.2-2.0 [facility] Comment on above: Performed By: #### C BC #### [facility] [address] [place] [address] Dr. Miah Veloz EO # 0.2 103/ul Normal 0.0-0.7 [facility] Comment on above: Performed By: #### C BC #### [facility] [address] [place] [address] Dr. Miah Veloz Eosinophils/100 WBC (Bld) 2.1 % Normal 0.9-7.0 [facility] Comment on above: Performed By: #### C BC #### [facility] [address] [place] [address] Dr. Miah Veloz Erythrocyte distribution width (RBC) [Ratio] 13.7 % Normal 11.0-15.0 [facility] Comment on above: Performed By: #### C BC #### [facility] [address] [place] [address] Dr. Miah Veloz Hematocrit (Bld) [Volume fraction] 39.3 % Critically low 42.0-54.0 [facility] Comment on above: Performed By: #### C BC #### [facility] [address] [place] [address] Dr. Miah Veloz Hemoglobin (Bld) [Mass/Vol] 13.0 g/dL Critically low 14.0-18.0 [facility] Comment on above: Performed By: #### C BC #### [facility] [address] [place] [address] Dr. Miah Veloz IG # 0.02 10e3/ul Normal 0.00-0.03 [facility] Comment on above: Performed By: #### C BC #### [facility] [address] [place] [address] Dr. Miah Veloz IG % 0.3 % Normal 0.0-0.5 [facility] Comment on above: Performed By: #### C BC #### [facility] [address] [place] [address] Dr. Miah Veloz LYMPH # 1.1 103/ul Critically low 1.2-3.8 [facility] Comment on above: Performed By: #### C BC #### [facility] [address] [place] [address] Dr. Miah Veloz Lymphocytes/100 WBC (Bld) 16.1 % Critically low 20.5-60.0 [facility] Comment on above: Performed By: #### C BC #### [facility] [address] [place] [address] Dr. Miah Veloz MANUAL DIFF REQ NO Normal [facility] Comment on above: Performed By: #### C BC #### [facility] [address] [place] [address] Dr. Miah Veloz MCH (RBC) [Entitic mass] 32.7 pg Normal 25.9-34.0 [facility] Comment on above: Performed By: #### C BC #### [facility] [address] [place] [address] Dr. Miah Veloz MCHC (RBC) [Mass/Vol] 33.1 g/dL Normal 29.9-35.2 [facility] Comment on above: Performed By: #### C BC #### [facility] [address] [place] [address] Dr. Miah Veloz MCV (RBC) [Entitic vol] 98.7 fL Critically high 80.0-94.0 [facility] Comment on above: Performed By: #### C BC #### [facility] [address] [place] [address] Dr. Miah Veloz MONO # 0.5 103/ul Normal 0.3-0.8 [facility] Comment on above: Performed By: #### C BC #### [facility] [address] [address] [address] Miah Veloz Monocytes/100 WBC (Bld) 7.6 % Normal 1.7-12.0 [facility] Comment on above: Performed By: #### C BC #### [facility] [address] [place] [address] Dr. Miah Veloz NEUT # 5.2 103/ul Normal 1.4-6.5 [facility] Comment on above: Performed By: #### C BC #### [facility] [address] [place] [address] Dr. Miah Veloz Neutrophils/100 WBC (Bld) 73.3 % Normal 43.0-75.0 [facility] Comment on above: Performed By: #### C BC #### [facility] [address] [place] [address] Dr. Miah Veloz Platelet mean volume (Bld) [Entitic vol] 10.7 fL Normal 9.5-13.5 [facility] Comment on above: Performed By: #### C BC #### [facility] [address] [place] [address] Dr. Miah Veloz PLT 200 103/ul Normal 150-450 [facility] Comment on above: Performed By: #### C BC #### [facility] [address] [place] [address] Dr. Miah Veloz RBC 3.98 106/ul Critically low 4.70-6.10 [facility] Comment on above: Performed By: #### C BC #### [facility] [address] [place] [address] Dr. Miah Veloz WBC 7.1 103/ul Normal 4.0-11.0 [facility] Comment on above: Performed By: #### C #### [facility] [address] [address] [address] Miah Veloz CTA CHEST WO W [...] opacification of the central pulmonary arterial tree ROCÍO: Normal sized bilateral hilar lymph nodes MEDIASTINUM: [...] NICK CABRALES Date: 2022-04-26 10:50 Normal [facility] Covid-19 PCR (CVDTB)on SARS-CoV-2 (COVID-19) RNA GÓMEZ+probe Ql (Unsp spec) Not detected Normal NOT DETECTED [facility] Comment on above: Result Comment: [...] for this test is supported by the Field Investigator of Health and Human Service's declaration that [...] longer be used). Performed By: #### B HAM ROLLING MACHINE OPERATOR, CMP, HSTROPN #### [facility] [address] [place] [address] Dr. Miah eVloz PROF 14(COMP METB)on 022 Albumin [Mass/Vol] 3.1 g/dL Critically low 3.4-5.0 [facility] Comment on above: Performed By: #### B HAM ROLLING MACHINE OPERATOR, CMP, HSTROPN #### [facility] [address] [place] [address] Dr. Miah Veloz Albumin/Globulin [Mass ratio] 0.9 {ratio} Normal [facility] Comment on above: Performed By: #### B HAM ROLLING MACHINE OPERATOR, CMP, HSTROPN #### [facility] [address] [place] [address] Dr. Miah Veloz ALP [Catalytic activity/Vol] 54 U/L Normal 46-116 [facility] Comment on above: Performed By: #### B HAM ROLLING MACHINE OPERATOR, CMP, HSTROPN #### [facility] [address] [place] [address] Dr. Miah Veloz ALT [Catalytic activity/Vol] 63 U/L Normal 16-63 [facility] Comment on above: Performed By: #### B HAM ROLLING MACHINE OPERATOR, CMP, HSTROPN #### [facility] [address] [place] [address] Dr. Miah Veloz Anion gap [Moles/Vol] 13.9 mmol/L Normal [facility] Comment on above: Performed By: #### B HAM ROLLING MACHINE OPERATOR, CMP, HSTROPN #### [facility] [address] [place] [address] Dr. Miah Veloz AST [Catalytic activity/Vol] 32 U/L Normal 15-37 [facility] Comment on above: Performed By: #### B HAM ROLLING MACHINE OPERATOR, CMP, HSTROPN #### [facility] [address] [address] [address] Miah Veloz Calcium [Mass/Vol] 8.7 mg/dL Normal 8.5-10.1 [facility] Comment on above: Performed By: #### B HAM ROLLING MACHINE OPERATOR, CMP, HSTROPN #### [facility] [address] [place] [address] Dr. Miah Veloz Chloride [Moles/Vol] 108 mmol/L Critically high 98-107 [facility] Comment on above: Performed By: #### B HAM ROLLING MACHINE OPERATOR, CMP, HSTROPN #### [facility] [address] [place] [address] Dr. Miah Veloz CO2 [Moles/Vol] 24.3 mmol/L Normal 21.0-32.0 [facility] Comment on above: Performed By: #### B HAM ROLLING MACHINE OPERATOR, CMP, HSTROPN #### [facility] [address] [place] [address] Dr. Miah Veloz Creatinine [Mass/Vol] 0.90 mg/dL Normal 0.70-1.30 [facility] Comment on above: Performed By: #### B HAM ROLLING MACHINE OPERATOR, CMP, HSTROPN #### [facility] [address] [place] [address] Dr. Miah Velzo EGFR-AF BHUTANESE >60 Normal >=60 [facility] Comment on above: Performed By: #### B HAM ROLLING MACHINE OPERATOR, CMP, HSTROPN #### [facility] [address] [place] [address] Dr. Miah Veloz EGFR-NON AF BHUTANESE >60 Normal >=60 [facility] Comment on above: Performed By: #### B HAM ROLLING MACHINE OPERATOR, CMP, HSTROPN #### [facility] [address] [place] [address] Dr. Miah Veloz Globulin (S) [Mass/Vol] 3.6 g/dL Normal [facility] Comment on above: Performed By: #### B HAM ROLLING MACHINE OPERATOR, CMP, HSTROPN #### [facility] [address] [place] [address] Dr. Miah Veloz Glucose [Mass/Vol] 146 mg/dL Critically high 74-106 [facility] Comment on above: Performed By: #### B HAM ROLLING MACHINE OPERATOR, CMP, HSTROPN #### [facility] [address] [address] [address] Miah Veloz Potassium [Moles/Vol] 4.2 mmol/L Normal 3.5-5.1 [facility] Comment on above: Performed By: #### B HAM ROLLING MACHINE OPERATOR, CMP, HSTROPN #### [facility] [address] [place] [address] Dr. Miah Veloz Protein [Mass/Vol] 6.7 g/dL Normal 6.4-8.2 [facility] Comment on above: Performed By: #### B HAM ROLLING MACHINE OPERATOR, CMP, HSTROPN #### [facility] [address] [place] [address] Dr. Miah Veloz Sodium [Moles/Vol] 142 mmol/L Normal 136-145 [facility] Comment on above: Performed By: #### B HAM ROLLING MACHINE OPERATOR, CMP, HSTROPN #### [facility] [address] [address] [address] Miah Veloz Urea nitrogen [Mass/Vol] 19.0 mg/dL Critically high 7.0-18.0 [facility] Comment on above: Performed By: #### B HAM ROLLING MACHINE OPERATOR, CMP, HSTROPN #### [facility] [address] [place] [address] Dr. Miah Veloz Urea nitrogen/Creatinine [Mass ratio] 21.1 mg/mg Normal [facility] Comment on above: Performed By: #### B HAM ROLLING MACHINE OPERATOR, CMP, HSTROPN #### [facility] [address] [place] [address] Dr. Miah Veloz PROTIMEon 04-26-2022 INR Coag (PPP) [Relative time] 1.20 {INR} Normal [facility] Comment on above: Performed By: #### B HAM ROLLING MACHINE OPERATOR, CMP, HSTROPN #### [facility] [address] [place] [address] Dr. Miah Veloz INR GUIDELINES SEE BELOW Normal [facility] Comment on above: Result Comment: JENNIFER RED INR: 2.0 - 3.0 CONDITIONS NOT LISTED BELOW 2.5 - 3.5 FOR PROSTHETIC HEART VALVE REPLACEMENT 2.5 - 3.5 RECURRENT THROMBOSIS Performed By: #### B HAM ROLLING MACHINE OPERATOR, CMP, HSTROPN #### [facility] [address] [address] [address] Miah Veloz PT Coag (PPP) [Time] 12.8 s Critically high 9.0-11.6 [facility] Comment on above: Performed By: #### B HAM ROLLING MACHINE OPERATOR, CMP, HSTROPN #### [facility] [address] [address] [address] Miah Veloz PTTon 04-26-2022 aPTT Coag (Bld) [Time] 28.5 s Normal 22.3-36.2 [facility] Comment on above: Performed By: #### B HAM ROLLING MACHINE OPERATOR, CMP, HSTROPN #### [facility] [address] [address] [address] Miah Veloz TROPONIN, HIGH SENSITIVITYon 04-26-2022 HSTROP 24.7 pg/mL Normal 4.0-76.1 [facility] Comment on above: Result Comment: CUT- OFF POINTS HAVE BEEN ESTABLISHED BASED ON THE FOURTH UNIVERSAL DEFINITIONS OF MYOCARDIAL INFARCTION. THE UPPER REFERENCE LIMIT (URL) OF TROPONIN, DEFINED THE 99TH PERCENTILE OF cTnI DISTRIBUTION IN A REFERENCE POPULATION, HAS BEEN CONFIRMED THE DECISION THRESHOLD FOR MD DIAGNOSIS. Performed By: #### B HAM ROLLING MACHINE OPERATOR, CMP, HSTROPN #### [facility] [address] [place] [address] Dr. Miah Veloz Encounters Encounter Date Encounter Type Care Provider Facility Start: 05-03-2024 End: 05-03-2024 ambulatory [facility] Start: 03-02-2024 ambulatory [facility] Start: 03-02-2024 End: 03-02-2024 ambulatory [facility] Start: 03-01-2024 ambulatory [facility] Start: 02-03-2024 End: 02-03-2024 ambulatory [facility] Start: 01-26-2024 End: 01-26-2024 ambulatory [facility] Start: 01-12-2024 End: 01-12-2024 ambulatory [facility] Start: 12-07-2023 End: 12-07-2023 ambulatory [facility] Start: 10-22-2023 End: 10-22-2023 ambulatory [facility] Start: 08-30-2023 End: 08-30-2023 ambulatory JOSE EDUARDO HIDALGO [facility] Start: 03-01-2023 End: 03-02-2023 ambulatory SARAH RAMIREZ Facility:[facility] Start: 01-15-2023 End: 01-16-2023 ambulatory LUZMA PHAM Facility:[facility] Start: 10-31-2022 Encounter for preprocedural laboratory examination DR TAVIA [place] . [facility] Start: 10-28-2022 End: 10-29-2022 ambulatory TAVIA [place] Facility:[facility] Start: 10-28-2022 End: 10-28-[address] TAVIA [place] . Facility:[facility] Start: 10-24-2022 End: 10-25-[address] TAVIA [place] . Facility:[facility] Start: 10-24-2022 End: 10-25-2022 Encounter for preprocedural laboratory examination DR TAVIA [place] . Facility:[facility] Start: 08-12-2022 Encounter for other preprocedural examination TACHO HOLLAND [facility] Start: 08-10-2022 End: 08-11-2022 ambulatory TACHO HOLLAND Facility:[facility] Start: 08-10-2022 End: 08-11-2022 Encounter for other preprocedural examination TACHO HOLLAND Facility:[facility] Start: 08-05-2022 End: 08-06-2022 ambulatory TACHO HOLLAND Facility:[facility] Start: 05-14-2022 End: 05-15-[address] DOCTOR FREED Facility:[facility] Start: 04-26-2022 End: 04-28-2022 Evaluation and management of inpatient [facility] Facility:[facility] Payers Date Payer Category Payer Private Health Insurance CLI [id number] 1961 Medicare [id number] 1961 Unknown [id number] 1955 Unknown [id number] 2.16.84 [id number] 1955 Unknown [id number] 2.16.84 [id number] 1953 Unknown [id number] 2.16.84 [id number] 1953 Unknown [id number] 2.16.84 [id number] 1953 Unknown [id number] 2.16.84 [id number] 1953 Unknown [id number] 2.16.84 [id number] 1953 Unknown [id number] 2.16.84 [id number] 1953 Unknown [id number] 2.16.84 [id number] 1955 Unknown [id number] 2.16.84 [id number] Clinical Notes 04-26-2022 to 05-03-2024 Note Date & Type Note Facility 05-03-2024 Note Patient here for [facility] up s/p afib ablation on 03/02/[address] Feliciano. Denies chest pain, SOB, and palpitations. Denies bleeding with Eliquis. Says he sometimes forgets to take his evening dose of Eliquis. Review of Systems Respiratory: Positive for wheezing. Skin: Positive for itching. Musculoskeletal: Positive for gout, joint pain and myalgias. All other systems reviewed and are negative. [facility] 05-03-2024 Note MD Cardiology - [facility] Subjective Garry Streeter is a 69 y.o. year old male patient being seen for follow-up post A-fib ablation 03/02/2024 Patient Active Problem List Diagnosis Chronic systolic heart failure (CMS/HCC) Dyspnea Edema of lower extremity Paroxysmal atrial fibrillation (CMS/HCC) Pulmonary edema Psoriasis Typical atrial flutter (CMS/HCC) Hypertension Alcohol use HPI Patient has history of A-fib/atrial flutter s/p recent pulmonary vein isolation ablation 03/02/[address] Feliciano, tachycardia induced nonischemic cardiomyopathy, he has normal coronary arteries on cardiac catheterization 08/12/2022 ROS Past Medical History: Diagnosis Date Abnormal ECG Arrhythmia CHF (congestive heart failure) (CMS/HCC) Dyspnea PAF (paroxysmal atrial fibrillation) (CMS/HCC) Systolic heart failure (CMS/HCC) Past Surgical History: Procedure Laterality Date ABLATION OF DYSRHYTHMIC FOCUS COLONOSCOPY Family History Problem Relation Name Age of Onset Colon cancer Brother Social History Tobacco Use Smoking status: Former Packs/day: 1.00 Years: 10.00 Additional pack years: 0.00 Total pack years: 10.00 Types: Cigarettes Start date: 05/05/1971 Quit date: 05/05/1981 Years since quittin.0 Smokeless tobacco: Never Vaping Use Vaping Use: Never used Substance Use Topics Alcohol use: Yes Alcohol/week: 16.0 standard drinks of alcohol Types: 8 Glasses of wine, 8 Shots of liquor per week Comment: daily/occ Drug use: Never Allergies Allergies Allergen Reactions Tylenol [Acetaminophen] Other Skin bumps Medications Current Outpatient Medications: allopurinol (Zyloprim) 300 mg tablet, Take 300 mg by mouth in the morning., Disp: , Rfl: amiodarone (Pacerone) 200 mg tablet, Take 2 tablets (400 mg) by mouth in the morning and at bedtime for 14 days, THEN 1 tablet (200 mg) in the morning. (Patient taking differently: 1 tablet daily), Disp: 86 tablet, Rfl: 3 apixaban (Eliquis) 5 mg tablet, Take 1 tablet (5 mg) by mouth in the morning and at bedtime., Disp: 60 tablet, Rfl: 11 fexofenadine HCl (MUCINEX ALLERGY ORAL), Take by mouth., Disp: , Rfl: losartan (Cozaar) 25 mg tablet, Take 1 tablet (25 mg) by mouth in the morning., Disp: 30 tablet, Rfl: 3 metoprolol succinate XL (Toprol-XL) 100 mg 24 hr tablet, Take 1 tablet (100 mg) by mouth in the morning., Disp: 30 tablet, Rfl: 11 spironolactone (Aldactone) 25 mg tablet, Take 1 tablet (25 mg) by mouth once daily as directed., Disp: 90 tablet, Rfl: 3 famotidine (Pepcid) 20 mg tablet, Take 1 tablet (20 mg) by mouth in the morning and at bedtime., Disp: 60 tablet, Rfl: 0 omeprazole (PriLOSEC) [address] capsule, Take 1 capsule (40 mg) by mouth before breakfast. Do not crush or chew., Disp: 30 capsule, Rfl: 0 Objective Visit Vitals BP 162/80 (BP Location: Left arm, Patient Position: Sitting) Pulse 53 Ht 1.829 m (6') Wt 101 kg (222 lb) SpO2 97% BMI 30.11 kg/m??? Smoking Status Former BSA 2.27 m??? Physical exam: GENERAL: alert and oriented x3, well developed, in no acute distress. HEAD: atraumatic, normocephalic. EYES: CONNIE, EOMI. NECK: trachea midline, no JVD present, no carotid bruits present. CARDIAC: S1, S2 present. RRR. No murmur, rubs, or gallops. RESPIRATORY: CTAB, no increased effort of breathing, no rales, rhonchi, or wheezing. ABDOMEN: soft, nontender, nondistended. EXTREMITIES: no lower extremity edema, peripheral pulses are 2+ bilaterally. No rash/skin discoloration present. NEURO: strength/sensation equal and symmetric in bilateral upper and lower extremities. PSYCH: appropriate mood, affect, and judgement. Recent Labs Lab Results Component Value Date GLUCOSE 92 03/01/2024 CALCIUM 9.7 03/01/2024 NA 137 03/01/2024 K 4.2 03/01/2024 CO2 26 03/01/2024 CL 102 03/01/2024 BUN 16 03/01/2024 CREATININE 1.05 03/01/2024 Lab Results Component Value Date WBC 5.22 03/01/2024 HGB 14.5 03/01/2024 HCT 40.7 03/01/2024 MCV 91.5 03/01/2024 PLT 141 (L) 03/01/2024 Lipid profile 05/14/2020 Cholesterol 166, triglycerides 300, HDL 37, LDL 69 Imaging and other tests EK03/02/2024 showed sinus bradycardia otherwise normal EKG Echo 01/13/2024 at [facility] ECHO 03/01/2023 at [facility] YOVANY and cardioversion 08/12/2022 Left Ventricle: The left ventricle appears enlarged. Global left ventricular systolic function is severely reduced. Left ventricular wall thickness is normal. Right Ventricle: The right ventricle is normal in size. Right ventricular systolic function appears reduced. Left Atrium: The left atrium appears enlarged. Left Atrium Appendage: Normal left atrial appendage, no thrombus seen. Overall Conclusions: Biphasic cardioversion was performed at 360 J, the patient was converted to sinus rhyth Echo 04/27/2022 Cardiac cath: 08/12/2022 Procedures Performed: -Bilateral selective coronary angiography -Li (more content not included)... [facility] 03-02-2024 Note Patient: Wero riggins Procedure Summary Date: 03/02/24 Room / Location: [facility] 1 / [facility] (Cath) Anesthesia Start: 0843 Anesthesia Stop: 1207 Procedure: Ablation a-fib paroxysmal Diagnosis: Paroxysmal A-fib (CMS/HCC) (afib) Providers: Hood Feliciano MD Responsible Provider: Toño Kan MD Anesthesia Type: general ASA Status: 3 Anesthesia Type: general Vitals Value Taken Time BP 146/96 03/02/24 1214 Temp 36.5 03/02/24 1214 Pulse 52 03/02/24 1214 Resp 16 03/02/24 1214 SpO2 94 03/02/24 1214 Anesthesia Post Evaluation Patient location during evaluation: PACU Patient participation: complete - patient participated Level of consciousness: awake Pain score: 1 Pain management: adequate Airway patency: patent Cardiovascular status: stable Respiratory status: acceptable Hydration status: balanced Patient is hemodynamically stable and is able to be discharged from PACU per anesthesia protocol. There were no known notable events for this encounter. [facility] 03-02-2024 Note Patient: Wero riggins Procedure Summary Date: 03/02/24 Room / Location: [facility] EP / [facility] (Cath) Anesthesia Start: 842 Anesthesia Stop: Procedure: Ablation a-fib paroxysmal Diagnosis: Paroxysmal A-fib (CMS/HCC) (afib) Providers: Hood Feliciano MD Responsible Provider: Toño Kan MD Anesthesia Type: general ASA Status: 3 Anesthesia Post Transport Note Transport to: PACU O2 Route: room air Patient Monitor: transport monitor Transport monitor type: ECG, NIBP, SpO2 and Art Line Transport: uneventful Patient condition is: stable [facility] 03-02-2024 Note ATRIAL FIBRILLATION ABLATION PROCEDURE NOTE DATE OF PROCEDURE: 03/02/2024 PERFORMING PHYSICIAN: Dr. Hood Feliciano TRANSPORTATION MAINTENANCE SPECIALIST:JOJO CONSENT: Patient NAME OF THE PROCEDURE: Pulmonary Vein Isolation and Comprehensive EP study. INDICATIONS FOR PROCEDURE: 1. Persistent atrial fibrillation. FLUROSCOPY: 1.5minutes/ 15mGy. EBL: 25cc SPECIMEN REMOVED: None PROCEDURES PERFORMED: 1. Sonosite guided venous access as noted below and images stored in PACS. 2. Comprehensive EP study and catheter ablation for persistent atrial fibrillation through the pulmonary vein isolation technique. This includes right atrial recording and pacing, His bundle recording and right ventricular recording and pacing. 3. Intracardiac EP 3D mapping. 4. Intracardiac echocardiogram 5. Left atrial and coronary sinus recording and pacing to assess ablation results. 6. Left heart pressure measurements and LV pacing and recording. 7. Induction of arrhythmia and testing of ablation results using intravenous adenosine infusion. 8. Fluroscopy. INDICATION: 68yr old with PMH of nonischemic cardiomyopathy likely induced by tachyarrhythmia recently was admitted to the [facility] 10/08/2023 with A-fib RVR. His EF improved and he has come for PVI to maintain SR. PROCEDURE NOTE: On the day of presentation, he was noted to be in SR and so YOVANY was deferred. Risks, benefits and alternatives of the procedure were discussed with the patient and family who agreed to proceed. Please refer to my consult note for details of the discussion and of indications. The patient was prepped and draped following which four venous access was procured on right side as noted below. Ultrasound was used to determine the course and patency of the femoral veins on both sides and they were noted to be patent and the image stored in PACS. After infiltration with 1% lidocaine, 4 venous sheaths were placed in the right as noted below and a radial arterial line was placed by Anesthesia team. RFV: 8Fx3, [employer] ThermoCool SF Bi-Directional over SL1/ Vizigo, SL1: Pentaray, CS Catheter (EZ Steer). 9F: ICE catheter. Following venous access, heparin bolus was given followed by continuous intravenous drip to target ACT around 350. An intracardiac ultrasound catheter was inserted into the right atrium to examine the right atrial anatomy, atrial septum, pulmonary vein anatomy and to monitor for pericardial effusion and guide transseptal access. The LA and RA was significantly dilated. At baseline, there was no pericardial effusion and no TI clot but noted a very prominent Coumadin ridge and chiari network was noted. Esophagus was mapped using the Scalado 3D mapping software and noted to be towards the RIPV. Transeptal access was procured with ICE guidance using a SL-1 sheath and Tyrone needle. Following this, pentaray catheter was advanced and the multipolar mapping performed of the LA creating a geometry as well as bipolar voltage assessment was made. The LA was noted to be scarred in the posterior wall next to the LSPV. After FAM geometry was performed, a 2nd transseptal was performed with an SL1 sheath using a Tyrone needle.But with catheter movement, patient went atrial tachycardia of CL 490ms which terminated. Following transseptal, the SL1 sheath was removed and Vizigo sheath was advanced over which the ablation catheter ST-SF thermocol ablation catheter was advanced. Ablation was then performed. A temperature probe was advanced to the middle of the LA to monitor the temperature. Ablation was performed using 40 hodge for 10-12s in the anterior LA and 5-8seconds in the posterior wall and roof area. After completion of the left sided WACA, no signals were noted in the LSPV or LIPV and entrance block was noted. After this, I proceeded to perform ablation of the right-sided vein. Following right WACA, the veins were isolated. I ensured that on the anterior aspect of right WACA and in estefania area, phrenic capture was ruled out before any ablation was performed. A temperature elevation was noted from a baseline of 36.1 with minimal change to 36.2F. I decided to perform focal ablation of the scarring of the LA and placed a quadrant where substrate modification is performed. No reconnection was seen with adenosine. LV pacing revealed no left sided accessory pathway. I then went over to the right atrium and performed CTI ablation. Using ICE, the His and IVC junctions were marked with 3D CARTO mapping software. ICE revealed a small subeustachian pouch. Vizigo sheath was carlos to the right side. Ablation was performed on the CTI line starting at the tricuspid valve aspect. 40W was utilized and I extended the ablation from the TV to the IVC aspect. I verified CTI block, the patient did have bidirectional block. Bidirectional block was noted with medial to lateral pacing with a timing of 184ms. Differential pacing confirmed bidirectional block. EP s (more content not included)... [facility] 03-02-2024 Note Arterial Line: Date/Time: 03/02/2024 7:40 AM An arterial line was placed Procedure performed using surface landmarks.in the pre-op for the following indication(s): continuous blood pressure monitoring and blood sampling needed. A 20 gauge (size), 1 and 3/4 inch (length), Arrow (type) catheter was placed, into the Left radial artery, secured by tape and Tegaderm. Events: patient tolerated procedure well with no complications. Medications Administered Lidocaine (XYLOCAINE) 1 % SubQ, 2 mL Staffing Performed: resident/SECOND BALLER/CAA Anesthesiologist: Toño Kan MD Resident/SECOND BALLER: Amandeep Wisdom MD Performed by: Amandeep Wisdom MD Authorized by: Toño Kan MD [facility] 03-02-2024 Note Airway Date/Time: 03/02/2024 9:04 AM Urgency: elective General Information and Staff Patient location during procedure: OR Anesthesiologist: Toño Kan MD Performed: anesthesiologist Learner assisted: David Holley [email or web address] Indications and Patient Condition Indications for airway management: anesthesia Spontaneous Ventilation: absent Sedation level: deep Preoxygenated: yes Patient position: sniffing Mask difficulty assessment: 1 - vent by mask Final Airway Details Final airway type: endotracheal airway Successful airway: ETT Cuffed: yes Successful intubation technique: video laryngoscopy Facilitating devices/methods: intubating stylet Endotracheal tube insertion site: oral Blade: Mccallum Blade size: #4 ETT size (mm): 7.5 Cormack-Lehane Classification: grade I - full view of glottis Placement verified by: chest auscultation and capnometry Inital cuff pressure (cm H2O): 22 Measured from: lips Number of attempts at approach: 1 Number of other approaches attempted: 0 [facility] 03-02-2024 Note MD Cardiology Consul t Note Reason for Consultation: Afib 03/01/24 Pt here to discuss about ablation. 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 Sometimes gets epistaxis and coughs up pink phlegm. Did not take any of his medications today. EKG 12/07/23 SR 10/22/23: He is here for follow-up regarding his A-fib. He has history of nonischemic cardiomyopathy likely induced by tachyarrhythmia recently was admitted to the [facility] 10/08/2023 with A-fib RVR Has been [...] flutter RVR 10/08/2023 A-fib RVR 08/2022 dr. feliciano HPI: Garry Streeter is a 68 y.o. [...] History: Diagnosis Date CHF (congestive heart failure) ([facility]) Dyspnea PAF (paroxysmal atrial fibrillation) ([facility]) Systolic heart failure ([facility]) PSH: Past Surgical History: Procedure Laterality Date COLONOSCOPY SH: Social Determinants of Health Tobacco Use: Medium Risk (03/02/2024) Patient History Smoking Tobacco Use: Former Smokeless Tobacco Use: Never Passive Exposure: Not on file Alcohol Use: Not on file Financial Resource Strain: Not on file Food Insecurity: Not on file Transportation Needs: Not on file Physical Activity: Not on file Stress: Not on file Social Connections: Not on file Intimate Partner Violence: Not At Risk (03/01/2024) Humiliation, Afraid, Rape, and Kick questionnaire Fear of Current or Ex-Partner: No Emotionally Abused: No Physically Abused: No Sexually Abused: No Depression: Not at risk (03/01/2024) PHQ-2 PHQ-2 Score: 0 Housing Stability: Not on file Utilities: Not on file Meds: No current facility-administered medications on file prior to encounter. Current Outpatient Medications on File Prior to Encounter Medication Sig Dispense Refill allopurinol (Zyloprim) 300 [...] (Toprol-XL) 100 mg 24 hr tablet Take 1 tablet (100 mg) by mouth in the morning. 30 tablet 11 spironolactone (Aldactone) 25 mg tablet Take 1 tablet (25 mg) by mouth once daily as directed. 90 tablet 3 losartan (Cozaar) 25 mg tablet Take 1 tablet (25 mg) by mouth in the morning. 30 tablet 3 ROS: Review of Systems HENT: Positive for hearing loss and nosebleeds. Cardiovascular: Positive for dyspnea on exertion, leg swelling (LLE, gout) and palpitations. Respiratory: Positive for cough and wheezing. Skin: Positive for itching. Musculoskeletal: Positive for gout. Gastrointestinal: Positive for diarrhea. Neurological: Positive for light-headedness (upon standing up). Psychiatric/Behavioral: Positive for memory loss. All other systems reviewed and are negative. Physical Exam: Telemed Labs: Admission on 03/02/2024 Component Date Value Ref Range Status Ventricular Rate 03/02/2024 59 BPM Incomplete Atrial Rate 03/02/2024 59 BPM Incomplete OH Interval 03/02/2024 190 ms Incomplete QRS DURATION 03/02/2024 90 ms Incomplete QT Interval 03/02/2024 442 (more content not included)... [facility] 03-02-2024 Note Patient: Wero riggins Procedure Information Date/Time: 03/02/24 0800 Procedure: Ablation a-fib paroxysmal Location: [facility] 1 EP / [facility] (Cath) Providers: Hood Feliciano MD Relevant Problems Cardio (+) Hypertension (+) Paroxysmal atrial fibrillation (CMS/HCC) (+) Typical atrial flutter (CMS/HCC) Pulmonary Some minor productive cough over the last 3 months, no fever/chills; no CARBALLO Circulatory (+) Chronic systolic heart failure (CMS/HCC) (08/2022 EF 40%) Other (+) Alcohol use (Several shots a day) YOVANY 08/12/2022 Left Ventricle: The left ventricle appears enlarged. Global left ventricular systolic function is severely reduced. Left ventricular wall thickness is normal. Right Ventricle: The right ventricle is normal in size. Right ventricular systolic function appears reduced. Left Atrium: The left atrium appears enlarged. Left Atrium Appendage: Normal left atrial appendage, no thrombus seen. Overall Conclusions: Biphasic cardioversion was performed at 360 J, the patient was converted to sinus rhythm Clinical information reviewed: Meds Physical Exam Airway Mallampati: I TM distance: >3 FB Neck ROM: full Cardiovascular - normal exam Rhythm: regular Dental (+) upper dentures Comments: Chipped and missing front teeth on the bottom Pulmonary - normal exam Abdominal Anesthesia Plan ASA 3 general (Arterial line) The patient is not a current smoker. Patient did not smoke on day of procedure. intravenous induction Anesthetic plan and risks discussed with patient. Use of blood products discussed with patient who consented to blood products. Additional Equipment Requests Prior to Admission medications Medication Sig Start Date End Date Taking? Authorizing Provider allopurinol (Zyloprim) 300 mg tablet Take 300 mg by mouth in the morning. 11/09/23 Historical Provider, amiodarone (Pacerone) 200 mg tablet Take 2 tablets (400 mg) by mouth in the morning and at bedtime for 14 days, THEN 1 tablet (200 mg) in the morning. Patient taking differently: 1 tablet daily 10/22/23 11/04/24 Meet Schmidt NP apixaban (Eliquis) 5 mg tablet Take 1 tablet (5 mg) by mouth in the morning and at bedtime. 07/27/23 Tacho Holland MD fexofenadine HCl (MUCINEX ALLERGY ORAL) Take by mouth. Historical Provider, losartan (Cozaar) 25 mg tablet Take 1 tablet (25 mg) by mouth in the morning. 10/22/23 03/01/24 Meet Schmidt NP metoprolol succinate XL (Toprol-XL) 100 mg 24 hr tablet Take 1 tablet (100 mg) by mouth in the morning. 01/12/24 01/06/25 Meet Schmidt NP spironolactone (Aldactone) 25 mg tablet Take 1 tablet (25 mg) by mouth once daily as directed. 09/06/23 Jose Eduardo Hidalgo NP [facility] 03-01-2024 Note [facility] Consul t Note Reason for Consultation: Afib 03/01/24 Pt here to discuss about ablation. EKG SR 01/12/24: He is here for afib ablation HP and consent He has noticed joint paint since starting amiodarone Discussed goal of ablation is hopefully come off amiodarone completely halfway He watched the educational videos sent to him regarding A-fib and ablations PMH: HTN, AF with RVR on amio, NICM / systolic HF induced by tachyarrhythmia, gout Medications: Toprol xl 100mg daily, aldactone 25mg daily, lasix 20mg daily, losartan 25mg daily 12/07/22 Patient in the office today to determine if he needs DCCV in 2 weeks. Sometimes gets epistaxis and coughs up pink phlegm. Did not take any of his medications today. EKG 12/07/23 SR 10/22/23: He is here for follow-up regarding his A-fib. He has history of nonischemic cardiomyopathy likely induced by tachyarrhythmia recently was admitted to the [facility] 10/08/2023 with A-fib RVR Has been [...] flutter RVR 10/08/2023 A-fib RVR 08/2022 dr. feliciano HPI: Garry Streeter is a 68 y.o. [...] Determinants of Health Tobacco Use: Medium Risk (03/01/2024) Patient History Smoking Tobacco Use: Former Smokeless Tobacco Use: Never Passive Exposure: Not on file Alcohol Use: Not on file Financial Resource Strain: Not on file Food Insecurity: Not on file Transportation Needs: Not on file Physical Activity: Not on file Stress: Not on file Social Connections: Not on file Intimate Partner Violence: Not At Risk (03/01/2024) Humiliation, Afraid, Rape, and Kick questionnaire Fear of Current or Ex-Partner: No Emotionally Abused: No Physically Abused: No Sexually Abused: No Depression: Not on file Housing Stability: Not [...] (Toprol-XL) 100 mg 24 hr tablet Take 1 tablet (100 mg) by mouth in the morning. 30 tablet 11 spironolactone (Aldactone) 25 mg tablet [...] Neurological: Positive for light-headedness (upon standing up). Psychiatric/Behavioral: Positive for memory loss. All other systems reviewed and are negative. Physical Exam: Telemed Labs: Lab on 03/01/2024 Component Date Value Ref Range Status Protime 03/01/2024 13.3 12.3 - 14.8 Seconds Final INR 03/01/2024 1.01 0.90 - 1.10 Final [facility] RECOMMENDED INR FOR WARFARIN THERAPY --- CONDITION INR PROPHYLAXIS OF VENOUS THROMBOSIS 2-3 (HIGH-RISK PERICO (more content not included)... [facility] 02-28-2024 Note ARRIVAL TIME GIVEN 0 630 FOR PROCEDURE DATE 03/02 HOLD ELIQUIS 02/28 MEDICATIONS TO TAKE DAY OF SURGERY ALLOPURINOL AMIODARONE METOPROLOL MEDS TO TAKE DAY OF PROCEDURE: HOLD ALL ANTI INFLAMMATORIES ETC:MOTRIN, ADVIL, ALEVE, FOR 5 DAYS PRIOR TO PROCEDURE IF YOU ARE GOING HOME AFTER YOUR SURGERY OR PROCEDURE, FOR YOUR SAFETY, YOUR SURGERY WILL BE CANCELLED IF BOTH OF THE FOLLOWING ARE NOT AVAILABLE: An adult class a regional drivers over the age of 18, that can receive information about your care after surgery, and drive you home. A responsible adult to stay with you for 24 hours in case of an emergency. Can be same as above. The highest risk of complications is within the first 24 hours after sedation/anesthesia. Nothing to eat or drink after midnight the night before surgery. This includes gum, candy, mints, and lozenges. No alcohol, marijuana, or tobacco products including vaping for 24 hours. Please brush your teeth; don't swallow the toothpaste or water. If you use dentures, wear them but do not use paste. Please leave any other removable dental hardware at home. Do not put in contact lenses. Do not wear perfume, make-up, nail maltese, or lotions on the day of your surgery or procedure. Follow skin-prep/wipe instructions as below if required. Bring with you: *Insurance card *Photo ID *Medication list *Co-pay for visit/prescriptions If applicable: *Rescue inhalers *Green bracelet from lab *CPAP or BiPAP machine, if staying overnight *Any braces, splints, or equipment ordered preoperatively *Remote controls for implanted devices Leave at home: *Purse/Wallet/Blue- unless needed for co-pay *Cell phone (can leave with family/friend or place in locker if needed) *Jewelry (including piercings and wedding bands) *If not possible, ask the person who is waiting with you to keep them Children under the age of 12 will not be allowed into patient care areas. We will call you between 3pm and 4pm the day before your surgery to give you an arrival time. If you do not receive this call, have any questions, or need to make any changes, please call [phone]. Notify your surgeon if you develop any illness such as a cold, cough, fever, sore throat or vomiting between now and your surgery. Thank you for entrusting us with your care. [facility] Surgical Services Team [facility] 02-03-2024 Note Pt states had cereal and coffee at 0830. 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 [facility] 02-03-2024 Note MD Cardiology Consul t Note Reason for Consultation: Afib 02/03/24 Pt here for Afib ablation 01/12/24: He is here for afib ablation HP and consent He has noticed joint paint since starting amiodarone Discussed goal of ablation is hopefully come off amiodarone completely halfway He watched the educational videos sent to him regarding A-fib and ablations PMH: HTN, AF with RVR on amio, NICM / systolic HF induced by tachyarrhythmia, gout Medications: Toprol xl 100mg daily, aldactone 25mg daily, lasix 20mg daily, losartan 25mg daily 12/07/22 Patient in the office today to determine if he needs DCCV in 2 weeks. Sometimes gets epistaxis and coughs up pink phlegm. Did not take any of his medications today. EKG 12/07/23 SR 10/22/23: He is here for follow-up regarding his A-fib. He has history of nonischemic cardiomyopathy likely induced by tachyarrhythmia recently was admitted to the [facility] 10/08/2023 with A-fib RVR Has been [...] flutter RVR 10/08/2023 A-fib RVR 08/2022 dr. feliciano HPI: Garry Streeter is a 68 y.o. [...] History: Diagnosis Date CHF (congestive heart failure) ([facility]) Dyspnea PAF (paroxysmal atrial fibrillation) ([facility]) Systolic heart failure ([facility]) PSH: History reviewed. No pertinent surgical history. SH: Social Determinants of Health Tobacco Use: Medium Risk (02/03/2024) Patient History Smoking Tobacco Use: Former Smokeless Tobacco Use: Never Passive Exposure: Not on file Alcohol Use: Not on file Financial Resource Strain: Not on file Food Insecurity: Not on file Transportation Needs: Not on file Physical Activity: Not on file Stress: Not on file Social Connections: Not on file Intimate Partner Violence: Unknown (01/13/2024) MD Safety & Environment Fear of Current or Ex-Partner: Not on file Emotionally Abused: Not on file Physically Abused: Not on file Sexually Abused: Not on file Physically or Sexually Abused: Not on file Depression: Not on file Housing Stability: Not on file Utilities: Not on file Meds: No current facility-administered medications on file prior to encounter. Current Outpatient Medications on File Prior to Encounter Medication Sig Dispense Refill allopurinol (Zyloprim) 300 [...] mouth in the morning. 30 tablet 3 spironolactone (Aldactone) 25 mg tablet Take 1 tablet (25 mg) by mouth once daily as directed. 90 tablet 3 ROS: Review of Systems HENT: Positive for hearing loss and nosebleeds. Cardiovascular: Positive for dyspnea on exertion, leg swelling (LLE, gout) and palpitations. Respiratory: Positive for cough and wheezing. Skin: Positive for itching. Musculoskeletal: Positive for gout. Gastrointestinal: Positive for diarrhea. Neurological: Positive for light-headedness (upon standing up). Psychiatric/Behavioral: Positive for memory loss. All other systems reviewed and are negative. Physical Exam: Telemed Labs: No visits with results within 1 Day(s) from this visit. Latest known visit with results is: Admission on 08/12/2022, Discharged on 08/12/2022 Component Date Value Ref Range Status Creatine, Serum 08/10/2022 1.37 Final Glucose, Bld 08/10/2022 103 Final BUN, Bld 08/10/2022 32 Final Sodium 08/10/2022 141 Final Potassium, Bld 08/10/2022 4.7 Final Chloride 08/10/2022 107 Final WBC 08/10/2022 9.9 (more content not included)... [facility] 01-12-2024 Note Patient here for H&P and consent prior to afib ablation scheduled on 02/03/[address] Feliciano. Denies chest pain, SOB, palpitations, and bleeding on Eliquis. Review of Systems Cardiovascular: Positive for leg swelling (LLE, gout). Respiratory: Positive for cough and wheezing. Skin: Positive for itching. Musculoskeletal: Positive for gout. Gastrointestinal: Positive for diarrhea. All other systems reviewed and are negative. [facility] 01-12-2024 Note [facility] Consul t Note Reason for Consultation: Afib 01/12/24: He is here for afib ablation HP and consent He has noticed joint paint since starting amiodarone Discussed goal of ablation is hopefully come off amiodarone completely halfway He watched the educational videos sent to him regarding A-fib and ablations PMH: HTN, AF with RVR on amio, NICM / systolic HF induced by tachyarrhythmia, gout Medications: Toprol xl 100mg daily, aldactone 25mg daily, lasix 20mg daily, losartan 25mg daily 12/07/22 Patient in the office today to determine if he needs DCCV in 2 weeks. Sometimes gets epistaxis and coughs up pink phlegm. Did not take any of his medications today. EKG 12/07/23 SR 10/22/23: He is here for follow-up regarding his A-fib. He has history of nonischemic cardiomyopathy likely induced by tachyarrhythmia recently was admitted to the [facility] 10/08/2023 with A-fib RVR Has been [...] flutter RVR 10/08/2023 A-fib RVR 08/2022 dr. feliciano HPI: Garry Streeter is a 68 y.o. [...] History: Diagnosis Date CHF (congestive heart failure) ([facility]) Dyspnea PAF (paroxysmal atrial fibrillation) ([facility]) Systolic heart failure ([facility]) PSH: No past surgical history on file. [...] MOUTH IN THE MORNING 60 tablet 3 [DISCONTINUED] colchicine 0.6 mg tablet Take 0.6 mg by mouth if needed for muscle/joint pain. [DISCONTINUED] potassium chloride CR (K-Tab) 20 mEq ER [...] Neurological: Positive for light-headedness (upon standing up). Psychiatric/Behavioral: Positive for memory loss. All other systems reviewed and are negative. Physical Exam: Telemed Labs: No visits with results within 1 Day(s) from this visit. Latest known visit with results is: Admission on 08/12/2022, Discharged on 08/12/2022 Component Date Value Ref Range Status Creatine, Se (more content not included)... [facility] 12-07-2023 Note MD Cardiology Consul t Note Reason for Consultation: Afib Date of Telehealth Visit: 12/07/23 The patient was notified that using 3rd green party telecommunication application (e.g., [employer]) is not HIPPA compliant and may carry some privacy risks. Yes The visit was conducted [id number] with the use of audio and video [...] by tachyarrhythmia recently was admitted to the [facility] 10/08/2023 with A-fib RVR Has been [...] flutter RVR 10/08/2023 A-fib RVR 08/2022 dr. feliciano HPI: Grary Streeter is a 68 y.o. year old [...] History: Diagnosis Date CHF (congestive heart failure) ([facility]) Dyspnea PAF (paroxysmal atrial fibrillation) (CMS/HCC) Systolic [...] on exertion, leg (more content not included)... [facility] 10-22-2023 Note Patient here for [facility] for afib w/ RVR. He was sent [...] All other systems reviewed and are negative. [facility] 10-22-2023 Note [facility] Consul t Note Reason for Consultation: Afib 10/22/23: He is here for follow-up regarding his A-fib. He has history of nonischemic cardiomyopathy likely induced by tachyarrhythmia recently was admitted to the [facility] 10/08/2023 with A-fib RVR Has been [...] flutter RVR 10/08/2023 A-fib RVR 08/2022 dr. feliciano HPI: Garry Streeter is a 68 y.o. [...] direct anterior nasal( (more content not included)... [facility] 08-30-2023 Note Patient here for 6 [...] All other systems reviewed and are negative. [facility] 08-30-2023 Note [facility] CARDIOLOGY PROGR ESS NOTE HPI: Garry Streeter is a 68 y.o. male past medical history of heart failure improved ejection fraction, paroxysmal atrial fibrillation, hypertension, and valvular heart disease seen in follow-up. Update: 03/22/2023 Pt is here for med check F/U for [facility] pt states he stopped taking some [...] Conclusions: Biphasic cardio (more content not included)... [facility] 04-26-2022 Note PROCEDURE: XR KNEE L T 4V or > COMPARISON: None. HISTORY: Swelling FINDINGS: BONES:No fracture, acute abnormality, or significant arthropathy. SOFT TISSUES:Negative. No visible soft tissue swelling. EFFUSION:Moderate suprapatellar joint effusion OTHER: Negative. IMPRESSION: Moderate joint effusion Electronically authenticated by: NICK CABRALES Date: 2022-04-26 10:09 [facility] Summary Purpose Family History No Family History Records FoundNo Family History Records FoundNo Family History Records Found Advance Directives No Advanced Directives Records FoundNo Advanced Directives Records FoundNo Advanced Directives Records Found Additional Source Comments (unrecognized sect ion and content) No Status Records FoundNo Status Records FoundNo Status Records Found INFORMATION SOURCE (unrecogn ized section and content) DATE CREATED AUTHOR 10/30/2022 [facility] DATE CREATED AUTHOR AUTHOR'S ORGANIZ ATION 03/17/2023 [facility] DATE CREATED AUTHOR AUTHOR'S ORGANIZ ATION 05/08/2024 [facility] FOR RECORDS PERTAINING TO PATIENTS [...] BE BASED ON THE PRIMARY CLINICAL RECORDS. [email or web address] provides no warranty or guarantee of the accuracy or completeness of information in this document.
[2024-08-01 10:12] LABS: Alanine Aminotransferase 33 U/L (16-63); Anion Gap 12.3; Aspartate Amino Transferase 16 U/L (15-37); BUN Creatinine Ratio 16.5; Calcium 8.7 mg/dL (8.5-10.1); Carbon Dioxide 28.8 mmol/L (21.0-32.0); Chloride 103 mmol/L (98-107); Chol HDL Ratio 5.1; Cholesterol 168 mg/dL (<=200); Estimated GFR (African America >60 (>=60); Estimated GFR (Non-African Ame >60 (>=60); Glucose 107 mg/dL (74-106); HDL Cholesterol 33 mg/dL (40-60); Potassium 4.1 mmol/L (3.5-5.1); Sodium 140 mmol/L (136-145); Triglycerides 185 mg/dL (<=150)
== END 2024-08-01 09:22 | disposition home or self-care (01) ==
PROVIDERS: PCP Nurse Practitioner Primary Care; Visit Provider Internal Medicine Cardiovascular Disease
DX: E78.1 Pure hyperglyceridemia (principal); I10 Essential (primary) hypertension
CPT/HCPCS: 36415; 80048; 80061; 84450; 84460

== ENCOUNTER 2025-03-16 13:17 | Outpatient (OUT) | payer MEDICARE, SELFPAY ==
[2025-03-16] MEDS: ALBUTEROL SULFATE 2.5 MG/3 ML VIAL NEB IH (14:17)
--- NOTE | 2025-03-16 14:18 | RT_ITS ---
[facility] Test Date: 2025-03-16 Pat Name: GARRY STREETER Department: Room: - Gender: Male Chief Construction Inspector: Reggie Martins RRT : 1955 Requested By: Harriett Curtis Order Number: [id number] Reading MD: Elian Shi Interpretive Statements Pulmonary function testing was completed according to ATS criteria. Findings were considered accurate and reproducible. Both pre- and post-bronchodilator values utilized for spirometry. Spirometry (based on pre-bronchodilator values): -FEV1/FVC: Low normal @ 70% -FEV1: Moderately reduced @ 74% -FVC: Reduced @ 77% -There is a positive bronchodilator response in FEV1 and FVC. Lung volumes by plethysmography (based on pre-bronchodilator values): -RV: Increased @ 159% -TLC: High normal @ 120% Diffusion capacity: -DLCO: Normal @ 90% when corrected for Hb 15g/dL Impressions: -Spirometry trends towards moderate obstruction with a positive bronchodilator response. An elevated RV suggests air trapping. The diffusion capacity is normal. Overall study is compatible with asthma. Clinical correlation required. Electronically Signed On 03-19-2025 16:15:33 EDT by Eilan Shi
== END 2025-03-16 13:18 | disposition home or self-care (01) ==
LOC: CARD 13:23
PROVIDERS: PCP Nurse Practitioner Primary Care; Visit Provider Nurse Practitioner Family
DX: R06.02 Shortness of breath (principal)
CPT/HCPCS: 36415; 85018; 94060; 94726; 94729

== ENCOUNTER 2025-07-12 13:07 | Outpatient (OUT) | payer MEDICARE, SELFPAY ==
--- NOTE | 2025-07-12 13:10 | CA_ITS ---
Patient Name: GARRY STREETER MR#: [id number] : 1955 Exam Date: 07/12/2025 Ordering Doctor: JALEN AMEZCUA OFFSET MACHINE OPERATOR ECHOCARDIOGRAM REPORT PROCEDURE: CA ECHO DOPPLER COMPLETE INDICATIONS: Abnormal EKG, hypertension COMPARISON: None. DESCRIPTION: COMPLETE ECHOCARDIOGRAM Real-time transthoracic echocardiography with 2D, M-mode, spectral and color flow Doppler performed. QUALITY: Technical quality was good. LEFT VENTRICLE: Normal chamber size. Mild concentric left ventricular hypertrophy. LV EF: Global ventricular systolic function is normal; visually estimated ejection fraction is 55 to 60%. No significant wall motion abnormalities. DIASTOLIC: Diastolic function is indeterminate. ATRIAL SEPTUM: Visually appears intact. LEFT ATRIUM: Mild dilatation. RIGHT ATRIUM: Normal chamber size. RIGHT VENTRICLE: Normal chamber size. Normal right ventricular systolic function. TRICUSPID VALVE: Normal mobility and thickness. No stenosis with mild regurgitation. No evidence of pulmonary hypertension. RVSP 33 mmHg MITRAL VALVE: Normal mobility and thickness. No evidence of mitral valve stenosis. There is no mitral annular calcification. Mild mitral regurgitation. AORTIC VALVE: Normal trileaflet appearance. Thickened aortic valve. Normal leaflet mobility. No evidence of aortic valve stenosis. Mild aortic regurgitation. AORTIC ROOT: Normal diameter and appearance. Ascending aorta is normal in size (3.6 cm) PULMONIC VALVE: Normal thickness and mobility. No stenosis. Mild regurgitation. PERICARDIUM: No evidence of pericardial effusion. IVC: Collapses with inspiration. IVC is normal in size. CONCLUSION: 1. Global left ventricular systolic function is normal; visually estimated ejection fraction is 55 to 60% 2. Normal right ventricular size and systolic function 3. Mild left ventricular hypertrophy 4. Diastolic function is indeterminate 5. The left atrium is mildly dilated 6. Mild mitral regurgitation 7. Mild aortic valve regurgitation 8. Mild pulmonic regurgitation Adult Echocardiography Procedure Report Left Ventricle LVEDD (3.7 - 5.6 cm): 4.85 cm LVESD (2.2 - 4.0 cm): 3.27 cm LVIVS thickness (0.6 - 1.2 cm): 1.21 cm LVPW thickness (0.5 - 1.0 cm): 1.16 cm e': 0.07 m/s E - e': 9.01 LVOT Max Gradient: 2.07 mm[Hg] LVOT Area (cm2): 0.72 m/s Peak Velocity (LVOT): 0.72 m/s Mean Velocity (LVOT): 0.37 m/s LVOT Diameter 2.55 cm Left Ventricular Ejection Fraction: 56.71 % Left Atrium LA Volume Index (2D A2C): 41.47 ml/m2 Left Atrium Systolic Dimension: 4.64 cm Mitral Valve MV E to A Ratio: 1.17 Mitral Valve A-Wave Peak Velocity: 0.55 m/s Mitral Valve E-Wave Peak Velocity: 0.65 m/s Right Ventricle Aorta AO Root Diam: 3.82 cm Ascending Ao Diam: 3.62 cm Aortic Valve AoV Area (Peak Jose): 2.64 cm2, 2.64 cm2 AoV Area (VTI): 2.42 cm2, 2.42 cm2 Deceleration Irwin: 2.38 m/s2 Pressure Half-Time: 578.48 ms Peak Velocity(Antegrade Flow): 1.38 m/s Peak Gradient(Antegrade Flow): 7.65 mm[Hg] Mean Velocity(Antegrade Flow): 0.94 m/s Mean Gradient(Antegrade Flow): 4.08 mm[Hg] Velocity Time Integral: 30.67 cm Tricuspid Valve Peak Velocity (Regurgitant Flow): 2.74 m/s Pulmonic Valve Peak Velocity: 1.35 m/s Peak Gradient: 7.24 mm[Hg] Right Atrium Right Atrium Systolic Pressure: 27.14 ml, 27.14 ml Dictated by: Justen Baumann M.D. on 07/12/2025 at 16:04 Approved by: Justen Baumann M.D. on 07/12/2025 at 16:07
--- OUTSIDE RECORDS SUMMARY | 2025-07-12 13:19 | XMS_ITS | CCD ---
Author Organization [facility] Care Team Providers [employer] Director Name Role Phone TAVIA [place] Attending Unavailable ALGHOTHANI, MOHAMAD Consulting Unavailable MISC, DR NARANJO Primary Care Unavailable ALGHOTHANI, MOHAMAPatience Attending Unavailable ALGHOTHANI, MOHAMAD Admitting Unavailable ALGHOTHANI, [...] Unavailable MISC, DR NARANJO Primary Care Unavailable NADERETeresa, DR ANDREI Hermosillo Consulting Unavailable MOUKARBEL, DR [...] MOHAMAD Attending Unavailable ALGHOTHANI, MOHAMAD Admitting Unavailable JALEN AMEZCUA Attending Unavailable TEZ BAHENA Attending Unavailable EMILY FELICIANO Attending Unavailable JALEN AMEZCUA Attending Unavailable JALEN AMEZCUA Attending Unavailable CORINNE GARCIA Referring Unavailable RUMSCHLAG, KWAME K Primary Care Unavailable RUMSCHLAG, KWAME K Referring Unavailable RUMSCHLAG, KWAME K Primary Care Unavailable CORINNE GARCIA Referring Unavailable AAMIRG, KWAME K Primary Care Unavailable Corinne Garcia MD Primary Care Provider Allergies Allergy Classification Reported Allergen(s) Allergy Type Date of Onset Reaction(s) Facility (3 sources) Acetaminophen; Translations: [ACETAMINOPHEN] Drug Allergy 2 [facility] Repository (2 sources) Acetaminophen Drug Allergy 2 Other (See Comments) [facility] Medications Current Medications Medication Drug Class(es) Dates Sig (Normalized) Sig (Original) apixaban 5 mg oral tablet (2 sources) Factor Xa Inhibitor take 1 tablet by mouth in the morning, then take 1 tablet by mouth at bedtime apixaban (ELIQUIS) 5 mg tablet Take 1 tablet (5 mg total) by mouth in the morning and 1 tablet (5 mg total) before bedtime. Active furosemide 20 mg oral tablet (2 sources) Loop Diuretic Start: 07-30-2022 take 1 tablet by mouth once daily furosemide (LASIX) 20 mg tablet Take 1 tablet (20 mg total) by mouth daily. 07/30/2022 Active ibuprofen 800 mg oral tablet (2 sources) Nonsteroidal Anti-inflammatory Drug Start: 01-10-2018 take 1 tablet by mouth three times daily as needed for pain ibuprofen (ADVIL,MOTRIN) 800 mg tablet Take 1 tablet (800 mg total) by mouth 3 (three) times a day as needed for pain for up to 30 doses. 30 tablet 01/10/2018 Active 24 hr metoprolol succinate 100 mg extended release oral tablet (2 sources) beta-Adrenergic Jia Start: 09-09-2022 take 1 tablet by mouth every twenty-four hours in the morning metoprolol succinate XL (TOPROL XL) 100 mg 24 hr tablet Take 1 tablet (100 mg total) by mouth in the morning. 09/09/2022 Active sacubitril 24 mg / valsartan 26 mg oral tablet (2 sources) Angiotensin 2 Receptor Jia Start: 08-07-2022 take 1 tablet by mouth twice daily at bedtime ENTRESTO 24-26 mg tablet TAKE 1 TABLET BY MOUTH TWICE DAILY (IN THE MORNING & AT BEDTIME) 08/07/2022 Active sod sulf-pot chloride-mag sulf 1.479-0.188- 0.225 gram tablet (4 sources) Start: 09-28-2022 sod sulf-pot chloride-mag sulf 1.479-0.188- 0.225 gram tablet See instructional sheet given by office. Patient was given a [employer] coupon voucher to use, this is not to be ran through patients insurance. 24 tablet 09/28/2022 Active Problems Active Problems Problem Classification Problem Date Documented Da te Episodic/Chronic Cardiac dysrhythmias (10 sources) Paroxysmal atrial fibrillation; Translations: [Unspecified atrial fibrillation] Onset: 04-27-2022 Chronic Congestive heart failure; nonhypertensive (11 sources) Chronic systolic (congestive) heart failure; Translations: [Acute systolic (congestive) heart failure] Onset: 05-04-2022 Chronic Diverticulosis and diverticulitis (1 source) Diverticulosis of large intestine without perforation or abscess without bleeding; Translations: [DVRTCLOS LG INT NO PERF/ABSC W/O BL] Onset: 11-01-2022 Chronic Essential hypertension (7 sources) Essential (primary) hypertension; Translations: [ESSENTIAL PRIMARY HYPERTENSION] Onset: 01-15-2023 Chronic Heart valve disorders (1 source) Rheumatic disorders of both mitral and tricuspid valves; Translations: [RHEUMATIC D/O MITRAL TRICUSPID VALV] Onset: 08-09-2022 Chronic Hypertension with complications and secondary hypertension (2 sources) Hypertensive heart disease with heart failure; Translations: [Hypertensive heart disease with heart failure] Onset: 04-05-2025 Chronic Other circulatory disease (1 source) Other specified symptoms and signs involving the circulatory and respiratory systems; Translations: [OTH SPEC SX SIGNS INVLV CIRC RS] Onset: 01-20-2023 Episodic Other connective tissue disease (1 source) Other specified soft tissue disorders; Translations: [Other specified soft tissue disorders] Onset: 04-18-2025 Episodic Other inflammatory condition of skin (2 sources) Psoriasis; Translations: [Psoriasis, unspecified] Onset: 09-28-2022 09-28-2022 Chronic Other lower respiratory disease (2 sources) Wheezing; Translations: [Wheezing] Onset: 04-05-2025 Episodic Other lower respiratory disease (2 sources) Shortness of breath; Translations: [Shortness of breath] Onset: 07-25-2022 Episodic Other lower respiratory disease (1 source) Chronic cough; Translations: [Chronic cough] Onset: 05-04-2025 Episodic Other nutritional; endocrine; and metabolic disorders (1 source) Obesity, unspecified; Translations: [OBESITY UNSPECIFIED] Onset: 05-04-2022 Chronic Other nutritional; endocrine; and metabolic disorders (1 source) Body mass index (BMI) 31.0-31.9, adult; Translations: [BODY MASS INDEX BMI 31.0-31.9 ADULT] Onset: 05-04-2022 Chronic Karla-; endo-; and myocarditis; cardiomyopathy (except that caused by tuberculosis or sexually transmitted disease) (2 sources) Other cardiomyopathies; Translations: [Other cardiomyopathies] Onset: 05-03-2024 Chronic Residual codes; unclassified (2 sources) Other specified postprocedural states; Translations: [Other specified postprocedural states] Onset: 04-05-2025 Episodic Unclassified (1 source) CONTACT W/AND (SUSP) EXPOS COVID-19; Translations: [CONTACT W/AND (SUSP) EXPOS COVID-19] Onset: 10-31-2022 Unclassified (2 sources) Other persistent atrial fibrillation; Translations: [Other persistent atrial fibrillation] Onset: 08-01-2024 Past or Other Problems Problem Classification Problem Date Documented Da te Episodic/Chronic Other aftercare (1 source) alf (current) use of anticoagulants; 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 USE ANTICOAGULANTS] Onset: 11-01-2022 Episodic Other and unspecified benign neoplasm (1 source) Benign neoplasm of sigmoid colon; Translations: [BENIGN NEOPLASM OF SIGMOID COLON] Onset: 11-01-2022 Episodic Other and unspecified benign neoplasm (1 source) Benign lipomatous neoplasm of other sites; Translations: [JOSE ULIS LIPOMATOUS NEOPLASM OTH SITES] Onset: 11-01-2022 Episodic [...] Test Name Value Interpretation Reference Range Facility CBC WITH AUTO DIFFERENTIALon 05-02-2025 BASOPHILS ABSOLUTE COUNT (10*3/UL) BY AUTOMATED COUNT 0.1 10*3/uL Normal 0.0-0.2 [facility] Comment on above: Performed By: #### C BCA #### [facility] ([facility]) [address] [place] [address] VIR BASOPHILS RELATIVE PERCENT BY AUTOMATED COUNT 0.8 % Normal [facility] Comment on above: Performed By: #### C BCA #### [facility] ([facility]) [address] [place] [address] VIR CELLAVISION DIFFERENTIAL TYPE AUTOMATED DIFFERENTIAL Normal [facility] Comment on above: Performed By: #### C BCA #### [facility] ([facility]) [address] [place] [address] VIR Eosinophils (Bld) [#/Vol] 0.4 10*3/uL Normal 0.0-0.4 [facility] Comment on above: Performed By: #### C BCA #### [facility] ([facility]) [address] [place] [address] VIR EOSINOPHILS RELATIVE PERCENT BY AUTOMATED COUNT 6.4 % Normal [facility] Comment on above: Performed By: #### C BCA #### [facility] ([facility]) [address] [place] [address] VIR Erythrocyte distribution width (RBC) [Ratio] 13.4 % Normal 11.5-15 [facility] Comment on above: Performed By: #### C BCA #### [facility] ([facility]) [address] [place] [address] VIR Hematocrit (Bld) [Volume fraction] 39.7 % Normal 39-50 [facility] Comment on above: Performed By: #### C BCA #### [facility] ([facility]) [address] [place] [address] VIR Hemoglobin (Bld) [Mass/Vol] 13.8 g/dL Normal 13-17 [facility] Comment on above: Performed By: #### C BCA #### [facility] ([facility]) [address] [place] [address] VIR LYMPHOCYTES ABSOLUTE COUNT (10*3/UL) BY AUTOMATED COUNT 1.3 10*3/uL Normal 1.0-3.5 [facility] Comment on above: Performed By: #### C BCA #### [facility] ([facility]) [address] [place] [address] VIR LYMPHOCYTES RELATIVE PERCENT BY AUTOMATED COUNT 18.6 % Normal [facility] Comment on above: Performed By: #### C BCA #### [facility] ([facility]) [address] [place] [address] VIR MCH (RBC) [Entitic mass] 33.0 pg Normal 27-34 [facility] Comment on above: Performed By: #### C BCA #### [facility] ([facility]) [address] [place] [address] VIR MCHC (RBC) [Mass/Vol] 34.7 g/dL Normal 32-36 [facility] Comment on above: Performed By: #### C BCA #### [facility] ([facility]) [address] [place] [address] VIR MCV (RBC) [Entitic vol] 95 fL Normal 80-100 [facility] Comment on above: Performed By: #### C BCA #### [facility] ([facility]) [address] [place] [address] VIR MONOCYTES ABSOLUTE COUNT (10*3/UL) BY AUTOMATED COUNT 0.5 10*3/uL Normal 0.0-0.9 [facility] Comment on above: Performed By: #### C BCA #### [facility] ([facility]) [address] [place] [address] VIR MONOCYTES RELATIVE PERCENT BY AUTOMATED COUNT 7.2 % Normal [facility] Comment on above: Performed By: #### C BCA #### [facility] ([facility]) [address] [place] [address] VIR NEUTROPHILS ABSOLUTE COUNT BY AUTOMATED COUNT 4.7 10*3/uL Normal 1.5-6.6 [facility] Comment on above: Performed By: #### C BCA #### [facility] ([facility]) [address] [place] [address] VIR NEUTROPHILS RELATIVE PERCENT BY AUTOMATED COUNT 67.0 % Normal [facility] Comment on above: Performed By: #### C BCA #### [facility] ([facility]) [address] [place] [address] VIR Platelet mean volume (Bld) [Entitic vol] 8.5 fL Normal 7-12 [facility] Comment on above: Performed By: #### C BCA #### [facility] ([facility]) [address] [place] [address] VIR Platelets (Bld) [#/Vol] 168 10*3/uL Normal 150-450 [facility] Comment on above: Performed By: #### C BCA #### [facility] ([facility]) [address] [place] [address] VIR RBC COUNT 4.17 X10E12/L Normal 4.1-5.7 [facility] Comment on above: Performed By: #### C BCA #### [facility] ([facility]) [address] [place] [address] VIR WBC (Bld) [#/Vol] 6.9 10*3/uL Normal 4-11 [facility] Comment on above: Performed By: #### C BCA #### [facility] ([facility]) [address] [place] [address] VIR COMPREHENSIVE METABOLIC PANE Marshall 05-02-2025 Albumin [Mass/Vol] 4.2 g/dL Normal 3.2-5.3 [facility] Comment on above: Performed By: #### C MP #### [facility] ([facility]) [address] [place] [address] VIR ALP [Catalytic activity/Vol] 78 U/L Normal 39-130 [facility] Comment on above: Performed By: #### C MP #### [facility] ([facility]) [address] [place] [address] VIR ALT [Catalytic activity/Vol] 13 U/L Normal <=40 [facility] Comment on above: Performed By: #### C MP #### [facility] ([facility]) [address] [place] [address] VIR Anion gap [Moles/Vol] 11 mmol/L Normal 5-15 [facility] Comment on above: Performed By: #### C MP #### [facility] ([facility]) [address] [place] [address] VIR AST [Catalytic activity/Vol] 16 U/L Normal <=41 [facility] Comment on above: Performed By: #### C MP #### [facility] ([facility]) [address] [place] [address] VIR Bilirubin [Mass/Vol] 0.9 mg/dL Normal 0.3-1.2 [facility] Comment on above: Performed By: #### C MP #### [facility] ([facility]) [address] [place] [address] VIR Calcium [Mass/Vol] 9.3 mg/dL Normal 8.5-10.5 [facility] Comment on above: Performed By: #### C MP #### [facility] ([facility]) [address] [place] [address] VIR Chloride [Moles/Vol] 105 mmol/L Normal 98-109 [facility] Comment on above: Performed By: #### C MP #### [facility] ([facility]) [address] [place] [address] VIR CO2 [Moles/Vol] 26 mmol/L Normal 22-32 [facility] Comment on above: Performed By: #### C MP #### [facility] ([facility]) [address] [place] [address] VIR Creatinine [Mass/Vol] 0.91 mg/dL Normal 0.60-1.30 [facility] Comment on above: Result Comment: METH OD TRACEABLE TO IDMS STANDARD Performed By: #### C MP #### [facility] ([facility]) [address] [place] [address] VIR GFR/1.73 sq M.predicted among non-blacks MDRD (S/P/Bld) [Vol rate/Area] 90 mL/min/{1.73_m2} Normal >=60 [facility] Comment on above: Result Comment: Repo rted eGFR is based on the CKD-EPI 2020 equation that does not use a race coefficient. Performed By: #### C MP #### [facility] ([facility]) [address] [place] [address] VIR Glucose [Mass/Vol] 127 mg/dL High 65-99 [facility] Comment on above: Performed By: #### C MP #### [facility] ([facility]) [address] [place] [address] VIR Potassium [Moles/Vol] 4.0 mmol/L Normal 3.5-5.0 [facility] Comment on above: Performed By: #### C MP #### [facility] ([facility]) [address] [place] [address] VIR Protein [Mass/Vol] 7.3 g/dL Normal 6.0-8.0 [facility] Comment on above: Performed By: #### C MP #### [facility] ([facility]) [address] [place] [address] VIR Sodium [Moles/Vol] 142 mmol/L Normal 134-146 [facility] Comment on above: Performed By: #### C MP #### [facility] ([facility]) [address] [place] [address] VIR Urea nitrogen [Mass/Vol] 15 mg/dL Normal 5-27 [facility] Comment on above: Performed By: #### C MP #### [facility] ([facility]) [address] [place] [address] VIR LIPID PROFILEon 05-02-2025 Cholesterol [Mass/Vol] 148 mg/dL Low 150-200 [facility] Comment on above: Performed By: #### L IPR #### [facility] ([facility]) [address] [place] [address] VIR Cholesterol in HDL [Mass/Vol] 35 mg/dL Low >39 [facility] Comment on above: Result Comment: HDL <40 mg/dL - High Risk HDL > or = 40mg/dL- Desirable HDL >60 mg/dL - Negative Risk Performed By: #### L IPR #### [facility] ([facility]) [address] [place] [address] VIR Cholesterol in LDL [Mass/Vol] 93 mg/dL Normal <130 [facility] Comment on above: Result Comment: LDL <100 mg/dL - Desirable LDL >160 mg/dL - High Risk Performed By: #### L IPR #### [facility] ([facility]) [address] [place] [address] VIR CHOLESTEROL:HDL 4.2 Normal 1.0-5.0 [facility] Comment on above: Performed By: #### L IPR #### [facility] ([facility]) [address] [place] [address] VIR Triglyceride [Mass/Vol] 101 mg/dL Normal 27-150 [facility] Comment on above: Performed By: #### L IPR #### [facility] ([facility]) [address] [place] [address] VIR VERY LOW LIPOPROTEIN 20 mg/dL Normal 0-30 [facility] Comment on above: Performed By: #### L IPR #### [facility] ([facility]) [address] [place] [address] VIR 37on 04-05-2025 37 *you can try to take some mucinex (Guaifenesin) without the D (no decongestant) along with flonase over the counter to see if this can help with some of your phlegm. Normal [facility] Office Visiton 04-05-2025 Follow-up visit [id number] Garry Streeter 1955 M Date Provider Department Center 04/05/2025 JALEN CROWE Family History Problem Relation Age of Onset Cancer Father Colon cancer Brother Family Status - Relation Status Age at Mother Father Sister Brother Level of Service:[address] [place] OFFICE/OUTPATIENT ESTABLISHED LOW MDM 20 MIN Reason for Visit and Comments: Hypertension [238480] Normal [facility] Orders Onlyon 04-05-2025 Orders Only [id number] Garry Streeter 1955 M Date Provider Department Center 04/05/2025 MONICA BARRIENTOS Family History Problem Relation Age of Onset Cancer Father Colon cancer Brother Family Status - Relation Status Age at Mother Father Sister Brother Normal [facility] 36on 03-26-2025 36 Regarding PFT result s from 03/16/2025: RACHANA Marcial MA PFTs are abnormal. Please send results to his PCP and ask pt to follow-up with them if he has not already. Thanks! SHADI letting him know I will fax results to his PCP and he should follow up with them. Asked him to call me with questions. Normal [facility] Office Visiton 03-06-2025 Follow-up visit [id number] Garry Streeter 1955 Date Provider Department Center 03/06/2025 JALEN CROWE Family History Problem Relation Age of Onset Cancer Father Colon cancer Brother Family Status - Relation Status Age at Mother Father Sister Brother Level of Service:[address] [place] OFFICE/OUTPATIENT ESTABLISHED MOD MDM 30 MIN Reason for Visit and Comments: Hypertension [595604] Atrial Fibrillation [80] Cardiomyopathy [104] Normal [facility] Office Visiton 02-06-2025 Follow-up visit [id number] Garry Streeter 1955 Provider Department Center 02/06/2025 JALEN CROWE Family History Problem Relation Age of Onset Colon cancer Brother Family Status - Relation Status Age at Brother Level of Service:26714 [place] OFFICE/OUTPATIENT ESTABLISHED MOD MDM 30 MIN Reason for Visit and Comments: Atrial Fibrillation [80] Hypertension [488320] Congestive Heart Failure [127] [facility] 36on 08-21-2024 36 Regarding lab result s from 08/01/2024: MD Sosa English MA Please inform patient that his lipids as well as BMP are normal. Continue current medications and current diet. LM on VM. Normal [facility] Office Visiton 08-01-2024 Follow-up visit [id number] Garry Streeter 1955 Date Provider Department Center 08/01/2024 EMILY VELEZ Family History Problem Relation Age of Onset Colon cancer Brother Family Status - Relation Status Age at Brother Level of Service:45728 [place] OFFICE/OUTPATIENT ESTABLISHED LOW MDM 20 MIN [facility] Follow-Upon 05-03-2024 Follow-Up [id number] Angeles 1955 M Date Provider Department Center 05/03/2024 [id number] [place]LEY TIM Balbuena [facility] Family History Problem Relation Age of Onset Colon cancer Brother Family Status - Relation Status Age at Brother Level of Service:59255 [place] OFFICE/OUTPATIENT ESTABLISHED MOD MDM 30 MIN Normal [facility] Orders Onlyon 05-03-2024 Orders Only [id number] Garry Streeter 1955 M Date Provider Department Center 05/03/2024 MONICA BARRIENTOS [facility] Esha [facility] Family History Problem Relation Age of Onset Colon cancer Brother Family Status - Relation Status Age at Brother Normal [facility] ECHOCARDIO M/2D COMPLETEon 0 03-01-2023 ECHOCARDIO M/2D COMPLETE Patient: GARRY STREETER. Exam Date: 03/01/2023 : 1955 Gender:M Ordering : SARAH SaraMichelle RAMIREZ Admission #: [id number] Family : WARREN JOYNER CAT SITTER-C Order #: [id number] CLICK HERE TO VIEW EXAM ECHOCARDIOGRAM REPORT [...] M.D. on 03/01/2023 at 09:21 Normal [facility] BNPon 01-15-2023 Natriuretic peptide B (Bld) [Mass/Vol] 20.0 pg/mL Normal <=900.0 [facility] Comment on above: Performed By: #### B CAT SITTER, MG, CMP #### [facility] [address] [place] [address] Dr. Miah Veloz HEMOGRAM AND PLATELon 2022 Hematocrit (Bld) [Volume fraction] 41.3 % Critically low 42.0-54.0 [facility] Comment on above: Performed By: #### B CAT SITTER, CMP, HSTROPN #### [facility] [address] [place] [address] Dr. Miah Veloz Hemoglobin (Bld) [Mass/Vol] 14.2 g/dL Normal 14.0-18.0 [facility] Comment on above: Performed By: #### B CAT SITTER, CMP, HSTROPN #### [facility] [address] [place] [address] Dr. Miah Veloz MCH (RBC) [Entitic mass] 31.5 pg Normal 25.9-34.0 [facility] Comment on above: Performed By: #### B CAT SITTER, CMP, HSTROPN #### [facility] [address] [place] [address] Dr. Miah Veloz MCHC (RBC) [Mass/Vol] 34.4 g/dL Normal 29.9-35.2 [facility] Comment on above: Performed By: #### B CAT SITTER, CMP, HSTROPN #### [facility] [address] [place] [address] Dr. Miah Veloz MCV (RBC) [Entitic vol] 91.6 fL Normal 80.0-94.0 [facility] Comment on above: Performed By: #### B CAT SITTER, CMP, HSTROPN #### [facility] [address] [place] [address] Dr. Miah Veloz PLT 173 103/ul Normal 150-450 [facility] Comment on above: Performed By: #### B CAT SITTER, CMP, HSTROPN #### [facility] [address] [place] [address] Dr. Miah Veloz RBC 4.51 106/ul Critically low 4.70-6.10 [facility] Comment on above: Performed By: #### B CAT SITTER, CMP, HSTROPN #### [facility] [address] [place] [address] Dr. Miah Veloz WBC 5.8 103/ul Normal 4.0-11.0 [facility] Comment on above: Performed By: #### B CAT SITTER, CMP, HSTROPN #### [facility] [address] [place] [address] Dr. Miah Veloz MAGNESIUMon 01-15-2023 Magnesium [Mass/Vol] 1.9 mg/dL Normal 1.8-2.4 [facility] Comment on above: Performed By: #### B CAT SITTER, MG, CMP #### [facility] [address] [place] [address] Dr. Miah Veloz PROF 14(COMP METB)on 023 Albumin [Mass/Vol] 3.8 g/dL Normal 3.4-5.0 [facility] Comment on above: Performed By: #### B CAT SITTER, MG, CMP #### [facility] [address] [place] [address] Dr. Miah Veloz Albumin/Globulin [Mass ratio] 0.9 {ratio} Normal [facility] Comment on above: Performed By: #### B CAT SITTER, MG, CMP #### [facility] [address] [place] [address] Dr. Miah Veloz ALP [Catalytic activity/Vol] 86 U/L Normal 46-116 [facility] Comment on above: Performed By: #### B CAT SITTER, MG, CMP #### [facility] [address] [address] [address] Miah Veloz ALT [Catalytic activity/Vol] 26 U/L Normal 16-63 [facility] Comment on above: Performed By: #### B CAT SITTER, MG, CMP #### [facility] [address] [address] [address] Miah Veloz Anion gap [Moles/Vol] 11.3 mmol/L Normal [facility] Comment on above: Performed By: #### B CAT SITTER, MG, CMP #### [facility] [address] [address] [address] Miah Veloz AST [Catalytic activity/Vol] 18 U/L Normal 15-37 [facility] Comment on above: Performed By: #### B CAT SITTER, MG, CMP #### [facility] [address] [place] [address] Dr. Miah Veloz Bilirubin [Mass/Vol] 0.6 mg/dL Normal 0.2-1.0 [facility] Comment on above: Performed By: #### B CAT SITTER, MG, CMP #### [facility] [address] [place] [address] Dr. Miah Veloz Calcium [Mass/Vol] 9.4 mg/dL Normal 8.5-10.1 [facility] Comment on above: Performed By: #### B CAT SITTER, MG, CMP #### [facility] [address] [place] [address] Dr. Miah Veloz Chloride [Moles/Vol] 105 mmol/L Normal 98-107 [facility] Comment on above: Performed By: #### B CAT SITTER, MG, CMP #### [facility] [address] [place] [address] Dr. Miah Veloz CO2 [Moles/Vol] 30.2 mmol/L Normal 21.0-32.0 [facility] Comment on above: Performed By: #### B CAT SITTER, MG, CMP #### [facility] [address] [place] [address] Dr. Miah Veloz Creatinine [Mass/Vol] 0.88 mg/dL Normal 0.70-1.30 [facility] Comment on above: Performed By: #### B CAT SITTER, MG, CMP #### [facility] [address] [address] [address] Miah Veloz EGFR-AF BRITISH >60 Normal >=60 [facility] Comment on above: Performed By: #### B CAT SITTER, MG, CMP #### [facility] [address] [address] [address] Miah Veloz EGFR-NON AF BRITISH >60 Normal >=60 [facility] Comment on above: Performed By: #### B CAT SITTER, MG, CMP #### [facility] [address] [address] [address] Miah Veloz Globulin (S) [Mass/Vol] 4.1 g/dL Normal [facility] Comment on above: Performed By: #### B CAT SITTER, MG, CMP #### [facility] [address] [address] [address] Miah Veloz Glucose [Mass/Vol] 98 mg/dL Normal 74-106 [facility] Comment on above: Performed By: #### B CAT SITTER, MG, CMP #### [facility] [address] [address] [address] Miah Veloz Potassium [Moles/Vol] 4.5 mmol/L Normal 3.5-5.1 [facility] Comment on above: Performed By: #### B CAT SITTER, MG, CMP #### [facility] [address] [address] [address] Miah Velzo Protein [Mass/Vol] 7.9 g/dL Normal 6.4-8.2 [facility] Comment on above: Performed By: #### B CAT SITTER, MG, CMP #### [facility] [address] [address] [address] Miah Veloz Sodium [Moles/Vol] 142 mmol/L Normal 136-145 [facility] Comment on above: Performed By: #### B CAT SITTER, MG, CMP #### [facility] [address] [address] [address] Miah Veloz Urea nitrogen [Mass/Vol] 15.0 mg/dL Normal 7.0-18.0 [facility] Comment on above: Performed By: #### B CAT SITTER, MG, CMP #### [facility] [address] [place], [place] [address] Dr. Miah Veloz Urea nitrogen/Creatinine [Mass ratio] 17.0 mg/mg Normal [facility] Comment on above: Performed By: #### B CAT SITTER, MG, CMP #### [facility] [address] [place], [place] [address] Dr. Miah Veloz XR CHEST 2 Von [...] LUZMA PHAM Date: 2023-01-15 12:47 Normal [facility] SURGICAL PATH REPORTon 10-29 SURGICAL PATH REPORT [facility] Department of Pathology [address] [place], [place] [id number] Name: GARRY STREETER : 1955 [facility] [id number] Number: Gender Male [facility] : n: Admit 67 years Attending TAVIA [place] Age: Provider: Ordering TAVIA [place] Provider: Consulti Surgical Pathology Report ng: ACCESSION: COLLECTED DATE/TIME: RECEIVED DATE/TIME: PATHOLOGIST: [id number] 10/28/2022 11:24 EST 10/28/2022 11:24 EST MATT PELAEZ MD Final Diagnosis Report for [facility] [place] [place] (A) SIGMOID POLYP AT 40 CM: [...] ____ Print 10/29/2022 14:17 EST Number: Date/Time: [facility] Department of Pathology [address] [place], [place] [id number] Name: GARRY STREETER : 1955 [facility] [id number] Number: [facility] n: Admit 67 years Attending TAVIA [place] Age: Provider: Ordering TAVIA [place] Provider: Consulti Surgical Pathology Report ng: ACCESSION: COLLECTED DATE/TIME: RECEIVED DATE/TIME: PATHOLOGIST: [id number] 10/28/2022 11:24 EST 10/28/2022 11:24 EST MATT [...] trisected and entirely submitted in three cassette. MP/jan 10/28/2022 Tissue pathology report for: [facility], [address] [place] [address], [place] [address]; PATHOLOGY SERVICES PROVIDED BY [employer] (CLIA #[id number]) in cooperation with [facility] at [address] [place] [address] ( CLIA #[id number]) Codes CPT CODE: 23154C9 ____ Print 10/29/2022 14:17 EST Number: Date/Time: Normal [facility] Comment on above: Performed By: #### [id number] #### [facility] Services [address] [place] [address] Inside Outside Sales Representative: Matt Pelaez MD [facility]on SARS-CoV-2 (COVID-19) RNA GÓMEZ+probe Ql (Unsp spec) Not detected Normal NOT DETECTED [facility] Comment on above: Result Comment: This test is not yet approved or cleared by the [place] FDA. When there are no FDA-approved or cleared tests available, and other criteria are met, FDA can make tests available under an emergency access mechanism called an Emergency Use Authorization (EUA). The EUA for this test is supported by the Radiology Tech of Health and Human Service's (HHS's) declaration [...] SARS-CoV-2. Performed By: #### C VDTBH #### [facility] [address] [place] [address] Dr. Miah Veloz CBC AUTO DIFFon 08-10-2022 BASO # 0.1 103/ul Normal 0.0-0.1 [facility] Comment on above: Performed By: #### B CAT SITTER, CMP, HSTROPN #### [facility] [address] [place] [address] Dr. Miah Veloz Basophils/100 WBC (Bld) 0.7 % Normal 0.2-2.0 [facility] Comment on above: Performed By: #### B CAT SITTER, CMP, HSTROPN #### [facility] [address] [place] [address] Dr. Miah Veloz EO # 0.4 103/ul Normal 0.0-0.7 [facility] Comment on above: Performed By: #### B CAT SITTER, CMP, HSTROPN #### [facility] [address] [place] [address] Dr. Miah Veloz Eosinophils/100 WBC (Bld) 4.1 % Normal 0.9-7.0 [facility] Comment on above: Performed By: #### B CAT SITTER, CMP, HSTROPN #### [facility] [address] [place] [address] Dr. Miah Veloz Erythrocyte distribution width (RBC) [Ratio] 16.0 % Critically high 11.0-15.0 [facility] Comment on above: Performed By: #### B CAT SITTER, CMP, HSTROPN #### [facility] [address] [place] [address] Dr. Miah Veloz Hematocrit (Bld) [Volume fraction] 41.2 % Critically low 42.0-54.0 [facility] Comment on above: Performed By: #### B CAT SITTER, CMP, HSTROPN #### [facility] [address] [place] [address] Dr. Miah Veloz Hemoglobin (Bld) [Mass/Vol] 14.1 g/dL Normal 14.0-18.0 [facility] Comment on above: Performed By: #### B CAT SITTER, CMP, HSTROPN #### [facility] [address] [place] [address] Dr. Miah Veloz IG # 0.03 10e3/ul Normal 0.00-0.03 [facility] Comment on above: Performed By: #### B CAT SITTER, CMP, HSTROPN #### [facility] [address] [place] [address] Dr. Miah Veloz IG % 0.3 % Normal 0.0-0.5 [facility] Comment on above: Performed By: #### B CAT SITTER, CMP, HSTROPN #### [facility] [address] [place] [address] Dr. Miah Veloz LYMPH # 2.8 103/ul Normal 1.2-3.8 [facility] Comment on above: Performed By: #### B CAT SITTER, CMP, HSTROPN #### [facility] [address] [place] [address] Dr. Miah Veloz Lymphocytes/100 WBC (Bld) 28.5 % Normal 20.5-60.0 [facility] Comment on above: Performed By: #### B CAT SITTER, CMP, HSTROPN #### [facility] [address] [place] [address] Dr. Miah Veloz MANUAL DIFF REQ NO Normal [facility] Comment on above: Performed By: #### B CAT SITTER, CMP, HSTROPN #### [facility] [address] [place] [address] Dr. Miah Veloz MCH (RBC) [Entitic mass] 32.4 pg Normal 25.9-34.0 [facility] Comment on above: Performed By: #### B CAT SITTER, CMP, HSTROPN #### [facility] [address] [place] [address] Dr. Miah Veloz MCHC (RBC) [Mass/Vol] 34.2 g/dL Normal 29.9-35.2 [facility] Comment on above: Performed By: #### B CAT SITTER, CMP, HSTROPN #### [facility] [address] [place] [address] Dr. Miah Veloz MCV (RBC) [Entitic vol] 94.7 fL Critically high 80.0-94.0 [facility] Comment on above: Performed By: #### B CAT SITTER, CMP, HSTROPN #### [facility] [address] [place] [address] Dr. Miah Veloz MONO # 0.8 103/ul Normal 0.3-0.8 [facility] Comment on above: Performed By: #### B CAT SITTER, CMP, HSTROPN #### [facility] [address] [place] [address] Dr. Miah Veloz Monocytes/100 WBC (Bld) 7.6 % Normal 1.7-12.0 [facility] Comment on above: Performed By: #### B CAT SITTER, CMP, HSTROPN #### [facility] [address] [place] [address] Dr. Miah Veloz NEUT # 5.8 103/ul Normal 1.4-6.5 [facility] Comment on above: Performed By: #### B CAT SITTER, CMP, HSTROPN #### [facility] [address] [place] [address] Dr. Miah Veloz Neutrophils/100 WBC (Bld) 58.8 % Normal 43.0-75.0 [facility] Comment on above: Performed By: #### B CAT SITTER, CMP, HSTROPN #### [facility] [address] [place] [address] Dr. Miah Veloz Platelet mean volume (Bld) [Entitic vol] 10.3 fL Normal 9.5-13.5 [facility] Comment on above: Performed By: #### B CAT SITTER, CMP, HSTROPN #### [facility] [address] [place] [address] Dr. Miah Veloz PLT 184 103/ul Normal 150-450 [facility] Comment on above: Performed By: #### B CAT SITTER, CMP, HSTROPN #### [facility] [address] [address] [address] Miah Veloz RBC 4.35 106/ul Critically low 4.70-6.10 [facility] Comment on above: Performed By: #### B CAT SITTER, CMP, HSTROPN #### [facility] [address] [address] [address] Miah Veloz WBC 9.9 103/ul Normal 4.0-11.0 [facility] Comment on above: Performed By: #### B CAT SITTER, CMP, HSTROPN #### [facility] [address] [place] [address] Dr. Miah Veloz PROF CHEM 8 (BAS METB)on Anion gap [Moles/Vol] 13.2 mmol/L Normal [facility] Comment on above: Performed By: #### B CAT SITTER, CMP, HSTROPN #### [facility] [address] [address] [address] Miah Veloz Calcium [Mass/Vol] 8.8 mg/dL Normal 8.5-10.1 [facility] Comment on above: Performed By: #### B CAT SITTER, CMP, HSTROPN #### [facility] [address] [address] [address] Miah Veloz Chloride [Moles/Vol] 107 mmol/L Normal 98-107 [facility] Comment on above: Performed By: #### B CAT SITTER, CMP, HSTROPN #### [facility] [address] [address] [address] Miah Veloz CO2 [Moles/Vol] 25.5 mmol/L Normal 21.0-32.0 [facility] Comment on above: Performed By: #### B CAT SITTER, CMP, HSTROPN #### [facility] [address] [address] [address] Miah Veloz Creatinine [Mass/Vol] 1.37 mg/dL Critically high 0.70-1.30 [facility] Comment on above: Performed By: #### B CAT SITTER, CMP, HSTROPN #### [facility] [address] [place] [address] Dr. Miah Veloz EGFR-AF BRITISH >60 Normal >=60 [facility] Comment on above: Performed By: #### B CAT SITTER, CMP, HSTROPN #### [facility] [address] [address] [address] Miah Veloz EGFR-NON AF BRITISH 52 mL/min/1.73m2 Critically low >=60 [facility] Comment on above: Performed By: #### B CAT SITTER, CMP, HSTROPN #### [facility] [address] [place] [address] Dr. Miah Veloz Glucose [Mass/Vol] 103 mg/dL Normal 74-106 [facility] Comment on above: Performed By: #### B CAT SITTER, CMP, HSTROPN #### [facility] [address] [place] [address] Dr. Miah Veloz Potassium [Moles/Vol] 4.7 mmol/L Normal 3.5-5.1 [facility] Comment on above: Performed By: #### B CAT SITTER, CMP, HSTROPN #### [facility] [address] [place] [address] Dr. Miah Veloz Sodium [Moles/Vol] 141 mmol/L Normal 136-145 [facility] Comment on above: Performed By: #### B CAT SITTER, CMP, HSTROPN #### [facility] [address] [place] [address] Dr. Miah Veloz Urea nitrogen [Mass/Vol] 32.0 mg/dL Critically high 7.0-18.0 [facility] Comment on above: Performed By: #### B CAT SITTER, CMP, HSTROPN #### [facility] [address] [place] [address] Dr. Miah Veloz Urea nitrogen/Creatinine [Mass ratio] 23.4 mg/mg Normal [facility] Comment on above: Performed By: #### B CAT SITTER, CMP, HSTROPN #### [facility] [address] [address] [address] Miah Veloz ECHOCARDIO M/2D COMPLETEon 0 08-05-2022 ECHOCARDIO M/2D COMPLETE Patient: GARRY STREETER Exam Date: 08/05/2022 : 1955 Gender:M Ordering : TACHO SÁNCHEZ Admission #: [id number] Family : Order #: [id number] CLICK HERE TO VIEW EXAM ECHOCARDIOGRAM REPORT [...] Baumann M.D. on 08/05/2022 at 14:32 Normal [facility] PROF 14(COMP METB)on 022 Albumin [Mass/Vol] 3.4 g/dL Normal 3.4-5.0 [facility] Comment on above: Performed By: #### B CAT SITTER, CMP, HSTROPN #### [facility] [address] [place] [address] Dr. Miah Veloz Albumin/Globulin [Mass ratio] 0.9 {ratio} [facility] Comment on above: Performed By: #### B CAT SITTER, CMP, HSTROPN #### [facility] [address] [place] [address] Dr. Miah Veloz ALP [Catalytic activity/Vol] 73 U/L Normal 46-116 [facility] Comment on above: Performed By: #### B CAT SITTER, CMP, HSTROPN #### [facility] [address] [address] [address] Miah Veloz ALT [Catalytic activity/Vol] 31 U/L Normal 16-63 [facility] Comment on above: Performed By: #### B CAT SITTER, CMP, HSTROPN #### [facility] [address] [address] [address] Miah Veloz Anion gap [Moles/Vol] 13.6 mmol/L Normal [facility] Comment on above: Performed By: #### B CAT SITTER, CMP, HSTROPN #### [facility] [address] [place] [address] Dr. Miah Veloz AST [Catalytic activity/Vol] 14 U/L Critically low 15-37 [facility] Comment on above: Performed By: #### B CAT SITTER, CMP, HSTROPN #### [facility] [address] [address] [address] Miah Veloz Bilirubin [Mass/Vol] 0.6 mg/dL Normal 0.2-1.0 [facility] Comment on above: Performed By: #### B CAT SITTER, CMP, HSTROPN #### [facility] [address] [address] [address] Miah Veloz Calcium [Mass/Vol] 8.8 mg/dL Normal 8.5-10.1 [facility] Comment on above: Performed By: #### B CAT SITTER, CMP, HSTROPN #### [facility] [address] [place] [address] Dr. Miah Veloz Chloride [Moles/Vol] 105 mmol/L Normal 98-107 [facility] Comment on above: Performed By: #### B CAT SITTER, CMP, HSTROPN #### [facility] [address] [address] [address] Miah Veloz CO2 [Moles/Vol] 27.7 mmol/L Normal 21.0-32.0 [facility] Comment on above: Performed By: #### B CAT SITTER, CMP, HSTROPN #### [facility] [address] [place] [address] Dr. Miah Veloz Creatinine [Mass/Vol] 1.17 mg/dL Normal 0.70-1.30 [facility] Comment on above: Performed By: #### B CAT SITTER, CMP, HSTROPN #### [facility] [address] [address] [address] Miah Veloz EGFR-AF BRITISH >60 Normal >=60 [facility] Comment on above: Performed By: #### B CAT SITTER, CMP, HSTROPN #### [facility] [address] [address] [address] Miah Veloz EGFR-NON AF BRITISH >60 Normal >=60 [facility] Comment on above: Performed By: #### B CAT SITTER, CMP, HSTROPN #### [facility] [address] [address] [address] Miah Veloz Globulin (S) [Mass/Vol] 3.9 g/dL Normal [facility] Comment on above: Performed By: #### B CAT SITTER, CMP, HSTROPN #### [facility] [address] [place] [address] Dr. Miah Veloz Glucose [Mass/Vol] 138 mg/dL Critically high 74-106 [facility] Comment on above: Performed By: #### B CAT SITTER, CMP, HSTROPN #### [facility] [address] [place] [address] Dr. Miah Veloz Potassium [Moles/Vol] 4.3 mmol/L Normal 3.5-5.1 [facility] Comment on above: Performed By: #### B CAT SITTER, CMP, HSTROPN #### [facility] [address] [place] [address] Dr. Miah Veloz Protein [Mass/Vol] 7.3 g/dL Normal 6.4-8.2 [facility] Comment on above: Performed By: #### B CAT SITTER, CMP, HSTROPN #### [facility] [address] [place] [address] Dr. Miah Veloz Sodium [Moles/Vol] 142 mmol/L Normal 136-145 [facility] Comment on above: Performed By: #### B CAT SITTER, CMP, HSTROPN #### [facility] [address] [place] [address] Dr. Miah Velzo Urea nitrogen [Mass/Vol] 25.0 mg/dL Critically high 7.0-18.0 [facility] Comment on above: Performed By: #### B CAT SITTER, CMP, HSTROPN #### [facility] [address] [place] [address] Dr. Miah Veloz Urea nitrogen/Creatinine [Mass ratio] 21.4 mg/mg Normal [facility] Comment on above: Performed By: #### B CAT SITTER, CMP, HSTROPN #### [facility] [address] [address] [address] Miah Veloz US BRANDO DOP LEG [...] MURPHY GRIFFIN Date: 2022-05-14 16:51 Normal [facility] CBC AUTO DIFFon 04-28-2022 BASO # 0.1 103/ul Normal 0.0-0.1 [facility] Comment on above: Performed By: #### C BC #### [facility] [address] [place] [address] Dr. Miah Veloz Basophils/100 WBC (Bld) 0.7 % Normal 0.2-2.0 [facility] Comment on above: Performed By: #### C BC #### [facility] [address] [place] [address] Dr. Miah Veloz EO # 0.2 103/ul Normal 0.0-0.7 [facility] Comment on above: Performed By: #### C BC #### [facility] [address] [place] [address] Dr. Miah Veloz Eosinophils/100 WBC (Bld) 2.9 % Normal 0.9-7.0 [facility] Comment on above: Performed By: #### C BC #### [facility] [address] [place] [address] Dr. Miah Veloz Erythrocyte distribution width (RBC) [Ratio] 13.2 % Normal 11.0-15.0 [facility] Comment on above: Performed By: #### C BC #### [facility] [address] [place] [address] Dr. Miah Veloz Hematocrit (Bld) [Volume fraction] 36.9 % Critically low 42.0-54.0 [facility] Comment on above: Performed By: #### C BC #### [facility] [address] [place] [address] Dr. Miah Veloz Hemoglobin (Bld) [Mass/Vol] 12.4 g/dL Critically low 14.0-18.0 [facility] Comment on above: Performed By: #### C BC #### [facility] [address] [place] [address] Dr. Miah Veloz IG # 0.03 10e3/ul Normal 0.00-0.03 [facility] Comment on above: Performed By: #### C BC #### [facility] [address] [place] [address] Dr. Miah Veloz IG % 0.4 % Normal 0.0-0.5 [facility] Comment on above: Performed By: #### C BC #### [facility] [address] [place] [address] Dr. Miah Veloz LYMPH # 1.8 103/ul Normal 1.2-3.8 [facility] Comment on above: Performed By: #### C BC #### [facility] [address] [place] [address] Dr. Miah Veloz Lymphocytes/100 WBC (Bld) 23.0 % Normal 20.5-60.0 [facility] Comment on above: Performed By: #### C BC #### [facility] [address] [place] [address] Dr. Miah Veloz MANUAL DIFF REQ NO Normal [facility] Comment on above: Performed By: #### C BC #### [facility] [address] [place] [address] Dr. Miah Veloz MCH (RBC) [Entitic mass] 32.3 pg Normal 25.9-34.0 [facility] Comment on above: Performed By: #### C BC #### [facility] [address] [place] [address] Dr. Miah Veloz MCHC (RBC) [Mass/Vol] 33.6 g/dL Normal 29.9-35.2 [facility] Comment on above: Performed By: #### C BC #### [facility] [address] [place] [address] Dr. Miah Veloz MCV (RBC) [Entitic vol] 96.1 fL Critically high 80.0-94.0 [facility] Comment on above: Performed By: #### C BC #### [facility] [address] [place] [address] Dr. Miah Veloz MONO # 0.8 103/ul Normal 0.3-0.8 [facility] Comment on above: Performed By: #### C BC #### [facility] [address] [place] [address] Dr. Miah Veloz Monocytes/100 WBC (Bld) 10.2 % Normal 1.7-12.0 [facility] Comment on above: Performed By: #### C BC #### [facility] [address] [place] [address] Dr. Miah Veloz NEUT # 4.8 103/ul Normal 1.4-6.5 [facility] Comment on above: Performed By: #### C BC #### [facility] [facility] [address] [place] [address] Dr. Miah Veloz Neutrophils/100 WBC (Bld) 62.8 % Normal 43.0-75.0 [facility] Comment on above: Performed By: #### C BC #### [facility] [address] [place] [address] Dr. Miah Veloz Platelet mean volume (Bld) [Entitic vol] 10.2 fL Normal 9.5-13.5 [facility] Comment on above: Performed By: #### C BC #### [facility] [address] [place] [address] Dr. Miah Veloz PLT 224 103/ul Normal 150-450 [facility] Comment on above: Performed By: #### C BC #### [facility] [address] [place] [address] Dr. Miah Veloz RBC 3.84 106/ul Critically low 4.70-6.10 [facility] Comment on above: Performed By: #### C BC #### [facility] [address] [place] [address] Dr. Miah Veloz WBC 7.7 103/ul Normal 4.0-11.0 [facility] Comment on above: Performed By: #### C BC #### [facility] [address] [place] [address] Dr. Miah Veloz PROF CHEM 8 (BAS METB)on Anion gap [Moles/Vol] 14.4 mmol/L Normal [facility] Comment on above: Performed By: #### B CAT SITTER, CMP, HSTROPN #### [facility] [address] [place] [address] Dr. Miah Veloz Calcium [Mass/Vol] 8.3 mg/dL Critically low 8.5-10.1 [facility] Comment on above: Performed By: #### B CAT SITTER, CMP, HSTROPN #### [facility] [address] [place] [address] Dr. Miah Veloz Chloride [Moles/Vol] 106 mmol/L Normal 98-107 [facility] Comment on above: Performed By: #### B CAT SITTER, CMP, HSTROPN #### [facility] [address] [place] [address] Dr. Miah Veloz CO2 [Moles/Vol] 27.0 mmol/L Normal 21.0-32.0 [facility] Comment on above: Performed By: #### B CAT SITTER, CMP, HSTROPN #### [facility] [address] [place] [address] Dr. Miah Veloz Creatinine [Mass/Vol] 1.12 mg/dL Normal 0.70-1.30 [facility] Comment on above: Performed By: #### B CAT SITTER, CMP, HSTROPN #### [facility] [address] [place] [address] Dr. Miah Veloz EGFR-AF BRITISH >60 Normal >=60 [facility] Comment on above: Performed By: #### B CAT SITTER, CMP, HSTROPN #### [facility] [address] [place] [address] Dr. Miah Veloz EGFR-NON AF BRITISH >60 Normal >=60 [facility] Comment on above: Performed By: #### B CAT SITTER, CMP, HSTROPN #### [facility] [address] [place] [address] Dr. Miah Veloz Glucose [Mass/Vol] 103 mg/dL Normal 74-106 [facility] Comment on above: Performed By: #### B CAT SITTER, CMP, HSTROPN #### [facility] [address] [place] [address] Dr. Miah Veloz Potassium [Moles/Vol] 3.4 mmol/L Critically low 3.5-5.1 [facility] Comment on above: Performed By: #### B CAT SITTER, CMP, HSTROPN #### [facility] [address] [place] [address] Dr. Miah Veloz Sodium [Moles/Vol] 144 mmol/L Normal 136-145 [facility] Comment on above: Performed By: #### B CAT SITTER, CMP, HSTROPN #### [facility] [address] [place] [address] Dr. Miah Veloz Urea nitrogen [Mass/Vol] 21.0 mg/dL Critically high 7.0-18.0 [facility] Comment on above: Performed By: #### B CAT SITTER, CMP, HSTROPN #### [facility] [address] [place] [address] Dr. Miah Veloz Urea nitrogen/Creatinine [Mass ratio] 18.8 mg/mg Normal [facility] Comment on above: Performed By: #### B CAT SITTER, CMP, HSTROPN #### [facility] [address] [place] [address] Dr. Miah Veloz CBC AUTO DIFFon 04-27-2022 BASO # 0.0 103/ul Normal 0.0-0.1 [facility] Comment on above: Performed By: #### B CAT SITTER, CMP, HSTROPN #### [facility] [address] [place] [address] Dr. Miah Veloz Basophils/100 WBC (Bld) 0.4 % Normal 0.2-2.0 [facility] Comment on above: Performed By: #### B CAT SITTER, CMP, HSTROPN #### [facility] [address] [place] [address] Dr. Miah Veloz EO # 0.2 103/ul Normal 0.0-0.7 [facility] Comment on above: Performed By: #### B CAT SITTER, CMP, HSTROPN #### [facility] [address] [place] [address] Dr. Miah Veloz Eosinophils/100 WBC (Bld) 3.2 % Normal 0.9-7.0 [facility] Comment on above: Performed By: #### B CAT SITTER, CMP, HSTROPN #### [facility] [address] [place] [address] Dr. Miah Veloz Erythrocyte distribution width (RBC) [Ratio] 13.6 % Normal 11.0-15.0 [facility] Comment on above: Performed By: #### B CAT SITTER, CMP, HSTROPN #### [facility] [address] [place] [address] Dr. Miah Veloz Hematocrit (Bld) [Volume fraction] 36.7 % Critically low 42.0-54.0 [facility] Comment on above: Performed By: #### B CAT SITTER, CMP, HSTROPN #### [facility] [address] [place] [address] Dr. Miah Veloz Hemoglobin (Bld) [Mass/Vol] 12.0 g/dL Critically low 14.0-18.0 [facility] Comment on above: Performed By: #### B CAT SITTER, CMP, HSTROPN #### [facility] [address] [place] [address] Dr. Miah Veloz IG # 0.02 10e3/ul Normal 0.00-0.03 [facility] Comment on above: Performed By: #### B CAT SITTER, CMP, HSTROPN #### [facility] [address] [place] [address] Dr. Miah Veloz IG % 0.3 % Normal 0.0-0.5 [facility] Comment on above: Performed By: #### B CAT SITTER, CMP, HSTROPN #### [facility] [address] [place] [address] Dr. Miah Veloz LYMPH # 1.6 103/ul Normal 1.2-3.8 [facility] Comment on above: Performed By: #### B CAT SITTER, CMP, HSTROPN #### [facility] [address] [place] [address] Dr. Miah Veloz Lymphocytes/100 WBC (Bld) 22.2 % Normal 20.5-60.0 [facility] Comment on above: Performed By: #### B CAT SITTER, CMP, HSTROPN #### [facility] [address] [place] [address] Dr. Miah Veloz MANUAL DIFF REQ NO Normal [facility] Comment on above: Performed By: #### B CAT SITTER, CMP, HSTROPN #### [facility] [address] [place] [address] Dr. Miah Veloz MCH (RBC) [Entitic mass] 32.3 pg Normal 25.9-34.0 [facility] Comment on above: Performed By: #### B CAT SITTER, CMP, HSTROPN #### [facility] [address] [place] [address] Dr. Miah Veloz MCHC (RBC) [Mass/Vol] 32.7 g/dL Normal 29.9-35.2 [facility] Comment on above: Performed By: #### B CAT SITTER, CMP, HSTROPN #### [facility] [address] [place] [address] Dr. Miah Veloz MCV (RBC) [Entitic vol] 98.7 fL Critically high 80.0-94.0 [facility] Comment on above: Performed By: #### B CAT SITTER, CMP, HSTROPN #### [facility] [address] [place] [address] Dr. Miah Veloz MONO # 0.7 103/ul Normal 0.3-0.8 [facility] Comment on above: Performed By: #### B CAT SITTER, CMP, HSTROPN #### [facility] [address] [address] [address] Miah Veloz Monocytes/100 WBC (Bld) 9.1 % Normal 1.7-12.0 [facility] Comment on above: Performed By: #### B CAT SITTER, CMP, HSTROPN #### [facility] [address] [place] [address] Dr. Miah Veloz NEUT # 4.6 103/ul Normal 1.4-6.5 [facility] Comment on above: Performed By: #### B CAT SITTER, CMP, HSTROPN #### [facility] [address] [place] [address] Dr. Miah Veloz Neutrophils/100 WBC (Bld) 64.8 % Normal 43.0-75.0 [facility] Comment on above: Performed By: #### B CAT SITTER, CMP, HSTROPN #### [facility] [address] [place] [address] Dr. Miah Veloz Platelet mean volume (Bld) [Entitic vol] 10.2 fL Normal 9.5-13.5 [facility] Comment on above: Performed By: #### B CAT SITTER, CMP, HSTROPN #### [facility] [address] [place] [address] Dr. Miah Veloz PLT 200 103/ul Normal 150-450 [facility] Comment on above: Performed By: #### B CAT SITTER, CMP, HSTROPN #### [facility] [address] [place] [address] Dr. Miah Veloz RBC 3.72 106/ul Critically low 4.70-6.10 [facility] Comment on above: Performed By: #### B CAT SITTER, CMP, HSTROPN #### [facility] [address] [place] [address] Dr. Miah Veloz WBC 7.1 103/ul Normal 4.0-11.0 [facility] Comment on above: Performed By: #### B CAT SITTER, CMP, HSTROPN #### [facility] [address] [address] [address] Miah Veloz ECHOCARDIO M/2D COMPLETEon 0 04-27-2022 ECHOCARDIO M/2D COMPLETE Patient: GARRY STREETER Exam Date: 04/27/2022 : 1955 Gender:M Ordering : DR ANDREI ORONA . Admission #: [id number] Family : Order #: [id number] CLICK HERE TO VIEW EXAM ECHOCARDIOGRAM REPORT [...] Area(A4C): 22.40 cm2 Left Atrium Systolic Volume(A2C): 32676 mm3 Left Atrium Systolic Volume(A4C): 00773 mm3 Mitral Valve Mitral Valve E-Wave Peak [...] M.D. on 04/27/2022 at 16:58 Normal [facility] PROF CHEM 8 (BAS METB)on Anion gap [Moles/Vol] 13.3 mmol/L Normal [facility] Comment on above: Performed By: #### B MP #### [facility] [address] [place] [address] Dr. Miah Veloz Calcium [Mass/Vol] 8.2 mg/dL Critically low 8.5-10.1 [facility] Comment on above: Performed By: #### B MP #### [facility] [address] [place] [address] Dr. Miah Veloz Chloride [Moles/Vol] 107 mmol/L Normal 98-107 [facility] Comment on above: Performed By: #### B MP #### [facility] [address] [place] [address] Dr. Miah Veloz CO2 [Moles/Vol] 27.5 mmol/L Normal 21.0-32.0 [facility] Comment on above: Performed By: #### B MP #### [facility] [address] [address] [address] Miah Veloz Creatinine [Mass/Vol] 0.97 mg/dL Normal 0.70-1.30 [facility] Comment on above: Performed By: #### B MP #### [facility] [address] [address] [address] Miah Veloz EGFR-AF BRITISH >60 Normal >=60 [facility] Comment on above: Performed By: #### B MP #### [facility] [address] [address] [address] Miah Veloz EGFR-NON AF BRITISH >60 Normal >=60 [facility] Comment on above: Performed By: #### B MP #### [facility] [address] [place] [address] Dr. Miah Veloz Glucose [Mass/Vol] 102 mg/dL Normal 74-106 [facility] Comment on above: Performed By: #### B MP #### [facility] [address] [address] [address] Miah Veloz Potassium [Moles/Vol] 3.8 mmol/L Normal 3.5-5.1 [facility] Comment on above: Performed By: #### B MP #### [facility] [address] [place] [address] Dr. Miah Veloz Sodium [Moles/Vol] 144 mmol/L Normal 136-145 [facility] Comment on above: Performed By: #### B MP #### [facility] [address] [place] [address] Dr. Miah Veloz Urea nitrogen [Mass/Vol] 17.0 mg/dL Normal 7.0-18.0 [facility] Comment on above: Performed By: #### B MP #### [facility] [address] [place] [address] Dr. Miah Veloz Urea nitrogen/Creatinine [Mass ratio] 17.5 mg/mg Normal [facility] Comment on above: Performed By: #### B MP #### [facility] [address] [place] [address] Dr. Miah Veloz BNPon 04-26-2022 Natriuretic peptide B (Bld) [Mass/Vol] 1105.0 pg/mL Critically high <=900.0 [facility] Comment on above: Performed By: #### B CAT SITTER, CMP, HSTROPN #### [facility] [address] [place] [address] Dr. Miah Veloz CBC AUTO DIFFon 04-26-2022 BASO # 0.0 103/ul Normal 0.0-0.1 [facility] Comment on above: Performed By: #### C BC #### [facility] [address] [place] [address] Dr. Miah Veloz Basophils/100 WBC (Bld) 0.6 % Normal 0.2-2.0 [facility] Comment on above: Performed By: #### C BC #### [facility] [address] [place] [address] Dr. Miah Veloz EO # 0.2 103/ul Normal 0.0-0.7 [facility] Comment on above: Performed By: #### C BC #### [facility] [address] [place] [address] Dr. Miah Veloz Eosinophils/100 WBC (Bld) 2.1 % Normal 0.9-7.0 [facility] Comment on above: Performed By: #### C BC #### [facility] [address] [place] [address] Dr. Miah Veloz Erythrocyte distribution width (RBC) [Ratio] 13.7 % Normal 11.0-15.0 [facility] Comment on above: Performed By: #### C BC #### [facility] [address] [place] [address] Dr. Miah Veloz Hematocrit (Bld) [Volume fraction] 39.3 % Critically low 42.0-54.0 [facility] Comment on above: Performed By: #### C BC #### [facility] [address] [place] [address] Dr. Miah Veloz Hemoglobin (Bld) [Mass/Vol] 13.0 g/dL Critically low 14.0-18.0 [facility] Comment on above: Performed By: #### C BC #### [facility] [address] [place] [address] Dr. Miah Veloz IG # 0.02 10e3/ul Normal 0.00-0.03 [facility] Comment on above: Performed By: #### C BC #### [facility] [address] [place] [address] Dr. Miah Veloz IG % 0.3 % Normal 0.0-0.5 [facility] Comment on above: Performed By: #### C BC #### [facility] [address] [place] [address] Dr. Miah Veloz LYMPH # 1.1 103/ul Critically low 1.2-3.8 [facility] Comment on above: Performed By: #### C BC #### [facility] [address] [place] [address] Dr. Miah Veloz Lymphocytes/100 WBC (Bld) 16.1 % Critically low 20.5-60.0 [facility] Comment on above: Performed By: #### C BC #### [facility] [address] [place] [address] Dr. Miah Veloz MANUAL DIFF REQ NO Normal [facility] Comment on above: Performed By: #### C BC #### [facility] [address] [place] [address] Dr. Miah Veloz MCH (RBC) [Entitic mass] 32.7 pg Normal 25.9-34.0 [facility] Comment on above: Performed By: #### C BC #### [facility] [address] [place] [address] Dr. Miah Veloz MCHC (RBC) [Mass/Vol] 33.1 g/dL Normal 29.9-35.2 [facility] Comment on above: Performed By: #### C BC #### [facility] [address] [place] [address] Dr. Miah Veloz MCV (RBC) [Entitic vol] 98.7 fL Critically high 80.0-94.0 [facility] Comment on above: Performed By: #### C BC #### [facility] [address] [place] [address] Dr. Miah Veloz MONO # 0.5 103/ul Normal 0.3-0.8 [facility] Comment on above: Performed By: #### C BC #### [facility] [address] [place] [address] Dr. Miah Veloz Monocytes/100 WBC (Bld) 7.6 % Normal 1.7-12.0 [facility] Comment on above: Performed By: #### C BC #### [facility] [address] [place] [address] Dr. Miah Veloz NEUT # 5.2 103/ul Normal 1.4-6.5 [facility] Comment on above: Performed By: #### C BC #### [facility] [address] [place] [address] Dr. Miah Veloz Neutrophils/100 WBC (Bld) 73.3 % Normal 43.0-75.0 [facility] Comment on above: Performed By: #### C BC #### [facility] [address] [place] [address] Dr. Miah Veloz Platelet mean volume (Bld) [Entitic vol] 10.7 fL Normal 9.5-13.5 [facility] Comment on above: Performed By: #### C BC #### [facility] [address] [place] [address] Dr. Miah Veloz PLT 200 103/ul Normal 150-450 [facility] Comment on above: Performed By: #### C BC #### [facility] [address] [place] [address] Dr. Miah Veloz RBC 3.98 106/ul Critically low 4.70-6.10 [facility] Comment on above: Performed By: #### C BC #### [facility] [address] [place] [address] Dr. Miah Veloz WBC 7.1 103/ul Normal 4.0-11.0 [facility] Comment on above: Performed By: #### C #### [facility] [address] [address] [address] Miah Veloz CTA CHEST WO W [...] opacification of the central pulmonary arterial tree DONELL: Normal sized bilateral hilar lymph nodes MEDIASTINUM: [...] NICK CABRALES Date: 2022-04-26 10:50 Normal [facility] Covid-19 PCR (CVDTB)on SARS-CoV-2 (COVID-19) RNA GÓMEZ+probe Ql (Unsp spec) Not detected Normal NOT DETECTED [facility] Comment on above: Result Comment: When [...] for this test is supported by the [place] of [employer] and [employer]'s declaration that [...] longer be used). Performed By: #### B CAT SITTER, CMP, HSTROPN #### [facility] [address] [place] [address] Dr. Miah Veloz PROF 14(COMP METB)on 022 Albumin [Mass/Vol] 3.1 g/dL Critically low 3.4-5.0 [facility] Comment on above: Performed By: #### B CAT SITTER, CMP, HSTROPN #### [facility] [address] [place] [address] Dr. Miah Veloz Albumin/Globulin [Mass ratio] 0.9 {ratio} Normal [facility] Comment on above: Performed By: #### B CAT SITTER, CMP, HSTROPN #### [facility] [address] [place] [address] Dr. Miah Veloz ALP [Catalytic activity/Vol] 54 U/L Normal 46-116 [facility] Comment on above: Performed By: #### B CAT SITTER, CMP, HSTROPN #### [facility] [address] [place] [address] Dr. Miah Vleoz ALT [Catalytic activity/Vol] 63 U/L Normal 16-63 [facility] Comment on above: Performed By: #### B CAT SITTER, CMP, HSTROPN #### [facility] [address] [place] [address] Dr. Miah Veloz Anion gap [Moles/Vol] 13.9 mmol/L Normal [facility] Comment on above: Performed By: #### B CAT SITTER, CMP, HSTROPN #### [facility] [address] [place] [address] Dr. Miah Veloz AST [Catalytic activity/Vol] 32 U/L Normal 15-37 [facility] Comment on above: Performed By: #### B CAT SITTER, CMP, HSTROPN #### [facility] [address] [address] [address] Miah Veloz Calcium [Mass/Vol] 8.7 mg/dL Normal 8.5-10.1 [facility] Comment on above: Performed By: #### B CAT SITTER, CMP, HSTROPN #### [facility] [address] [place] [address] Dr. Miah Veloz Chloride [Moles/Vol] 108 mmol/L Critically high 98-107 [facility] Comment on above: Performed By: #### B CAT SITTER, CMP, HSTROPN #### [facility] [address] [place] [address] Dr. Miah Veloz CO2 [Moles/Vol] 24.3 mmol/L Normal 21.0-32.0 [facility] Comment on above: Performed By: #### B CAT SITTER, CMP, HSTROPN #### [facility] [address] [place] [address] Dr. Miah Veloz Creatinine [Mass/Vol] 0.90 mg/dL Normal 0.70-1.30 [facility] Comment on above: Performed By: #### B CAT SITTER, CMP, HSTROPN #### [facility] [address] [place] [address] Dr. Miah Veloz EGFR-AF BRITISH >60 Normal >=60 [facility] Comment on above: Performed By: #### B CAT SITTER, CMP, HSTROPN #### [facility] [address] [place] [address] Dr. Miah Veloz EGFR-NON AF BRITISH >60 Normal >=60 [facility] Comment on above: Performed By: #### B CAT SITTER, CMP, HSTROPN #### [facility] [address] [place] [address] Dr. Miah Veloz Globulin (S) [Mass/Vol] 3.6 g/dL Normal [facility] Comment on above: Performed By: #### B CAT SITTER, CMP, HSTROPN #### [facility] [address] [place] [address] Dr. Miah Veloz Glucose [Mass/Vol] 146 mg/dL Critically high 74-106 [facility] Comment on above: Performed By: #### B CAT SITTER, CMP, HSTROPN #### [facility] [address] [address] [address] Miah Veloz Potassium [Moles/Vol] 4.2 mmol/L Normal 3.5-5.1 [facility] Comment on above: Performed By: #### B CAT SITTER, CMP, HSTROPN #### [facility] [address] [address] [address] Miah Veloz Protein [Mass/Vol] 6.7 g/dL Normal 6.4-8.2 [facility] Comment on above: Performed By: #### B CAT SITTER, CMP, HSTROPN #### [facility] [address] [address] [address] Miah Veloz Sodium [Moles/Vol] 142 mmol/L Normal 136-145 [facility] Comment on above: Performed By: #### B CAT SITTER, CMP, HSTROPN #### [facility] [address] [address] [address] Miah Veloz Urea nitrogen [Mass/Vol] 19.0 mg/dL Critically high 7.0-18.0 [facility] Comment on above: Performed By: #### B CAT SITTER, CMP, HSTROPN #### [facility] [address] [address] [address] Miah Veloz Urea nitrogen/Creatinine [Mass ratio] 21.1 mg/mg Normal [facility] Comment on above: Performed By: #### B CAT SITTER, CMP, HSTROPN #### [facility] [address] [address] [address] Miah Veloz PROTIMEon 04-26-2022 INR Coag (PPP) [Relative time] 1.20 {INR} Normal [facility] Comment on above: Performed By: #### B CAT SITTER, CMP, HSTROPN #### [facility] [address] [place] [address] Dr. Miah Veloz INR GUIDELINES SEE BELOW Normal [facility] Comment on above: Result Comment: JENNIFER RED INR: 2.0 - 3.0 CONDITIONS NOT LISTED BELOW 2.5 - 3.5 FOR PROSTHETIC HEART VALVE REPLACEMENT 2.5 - 3.5 RECURRENT THROMBOSIS Performed By: #### B CAT SITTER, CMP, HSTROPN #### [facility] [address] [address] [address] Miah Veloz PT Coag (PPP) [Time] 12.8 s Critically high 9.0-11.6 [facility] Comment on above: Performed By: #### B CAT SITTER, CMP, HSTROPN #### [facility] [address] [address] [address] Miah Veloz PTTon 04-26-2022 aPTT Coag (Bld) [Time] 28.5 s Normal 22.3-36.2 [facility] Comment on above: Performed By: #### B CAT SITTER, CMP, HSTROPN #### [facility] [address] [address] [address] Miah Velzo TROPONIN, HIGH SENSITIVITYon 04-26-2022 HSTROP 24.7 pg/mL Normal 4.0-76.1 [facility] Comment on above: Result Comment: CUT- OFF POINTS HAVE BEEN ESTABLISHED BASED ON THE FOURTH UNIVERSAL DEFINITIONS OF MYOCARDIAL INFARCTION. THE UPPER REFERENCE LIMIT (URL) OF TROPONIN, DEFINED THE 99TH PERCENTILE OF cTnI DISTRIBUTION IN A REFERENCE POPULATION, HAS BEEN CONFIRMED THE DECISION THRESHOLD FOR VA DIAGNOSIS. Performed By: #### B CAT SITTER, CMP, HSTROPN #### [facility] [address] [address] [address] Miah Veloz Encounters Encounter Date Encounter Type Care Provider Facility Start: 06-11-2025 End: 06-18-2025 Telephone encounter Emani Thorntno APRN-HORSE RACING ANALYST Work Phone: [facility] Start: 05-21-2025 End: 05-23-2025 Telephone encounter Emani Thornton APRN-HORSE RACING ANALYST Work Phone: [facility] Start: 05-04-2025 End: 05-04-2025 ambulatory [facility] Start: 05-02-2025 ambulatory KWAME BLACKWOOD [facility] Start: 04-18-2025 End: 04-18-2025 ambulatory CORINNE Lancaster [facility] Start: 04-05-2025 End: 04-05-2025 ambulatory [facility] Start: 03-06-2025 End: 03-06-2025 ambulatory [facility] Start: 02-06-2025 End: 02-06-2025 ambulatory [facility] Start: 08-01-2024 End: 08-01-2024 ambulatory [facility] Start: 05-03-2024 End: 05-03-2024 ambulatory [facility] Start: 03-01-2023 End: 03-02-2023 ambulatory SARAH RAMIREZ Facility:[facility] Start: 01-15-2023 End: 01-16-2023 ambulatory LUZMA PHAM Facility:[facility] Start: 10-31-2022 Encounter for preprocedural laboratory examination DR TAVIA OH . [facility] Start: 10-28-2022 End: 10-29-2022 ambulatory TAVIA OH Facility:[facility] Start: 10-28-2022 End: 10-28-[address] TAVIA OH . Facility:[facility] Start: 10-24-2022 End: 10-25-[address] TAVIA OH . Facility:[facility] Start: 10-24-2022 End: 10-25-2022 Encounter for preprocedural laboratory examination DR TAVIA OH . Facility:[facility] Start: 08-12-2022 Encounter for other preprocedural examination TACHO SÁNCHEZ [facility] Start: 08-10-2022 End: 08-11-2022 ambulatory TACHO SÁNCHEZ Facility:[facility] Start: 08-10-2022 End: 08-11-2022 Encounter for other preprocedural examination TACHO SÁNCHEZ Facility:[facility] Start: 08-05-2022 End: 08-06-2022 ambulatory TACHO SÁNCHEZ Facility:[facility] Start: 05-14-2022 End: 05-15-[address] DOCTOR FREED Facility:[facility] Start: 04-26-2022 End: 04-28-2022 Evaluation and management of inpatient NICK CABRALES Facility:[facility] Procedures Date Procedure Procedure Detail Performing Clinician Start: 10-28-2022 Colonoscopy Emani kaye SPINNING LATHE OPERATOR HYDRAULIC-HORSE RACING ANALYST Work Phone: Plan of Treatment Date Care Activity Detail Author Start: 10-04-2033 DTaP,Tdap and Td Vaccines (2 - Td or Tdap) DTaP,Tdap and Td Vaccines (2 - Td or Tdap) [facility] Start: 10-28-2027 Screening for malignant neoplasm of colon Colonoscopy [facility] Start: 07-23-2025 Influenza vaccination Influenza Vaccine [facility] Start: 07-23-2024 COVID-19 Vaccine ( season) COVID-19 Vaccine () [facility] Start: 09-28-2023 Adult BMI Screening Adult BMI Screening [facility] Start: 2018 Abdominal aortic aneurysm screening Abdominal Aortic Aneurysm (AAA) Screen [facility] Start: 2018 Fall Risk Screening Fall Risk Screening [facility] Start: 2003 Administration of varicella zoster vaccine Zoster (Shingles) Vaccine (1 of 2) [facility] Start: 1965 Depression Screening Depression Screening [facility] Start: 1965 Tobacco Screening Tobacco Screening [facility] Immunizations Immunization Date Immunization Notes Care Provider Fa cility 10-04-2023 influenza virus vaccine, unspecified formulation Emani Thornton SPINNING LATHE OPERATOR HYDRAULIC-HORSE RACING ANALYST Work Phone: [facility] Payers Date Payer Category Payer Commercial Managed C are - POS [employer] [id number] 2024 Private Health Insurance [facility] [id number] 2020 Medicare MEDICARE [id number] 1959 Medicare [id number] 1959 Unknown [id number] 1953 Unknown [id number] [id number]. 2.593 1953 Unknown [id number] [id number]. 2.59 1953 Unknown [id number] [id number]. 2.593 1953 Unknown [id number] [id number]. 2.593 1953 Unknown [id number] [id number]. 2.593 1953 Unknown [id number] [id number]. 2.59 1953 Unknown [id number] [id number]. 2.593 1953 Unknown [id number] [id number]. 2.59 1953 Unknown [id number] [id number]. 2.593 1953 Unknown [id number] [id number]. 2.1286 1953 Unknown [id number] [id number]. 2.1286 1953 Unknown [id number] [id number]. 2.1286 Social History Date Type Detail Facility Start: 09-28-2022 Tobacco smoking stat [facility] Ex-smoker [facility] History of tobacco use Current smoker [facility] History of tobacco use Cigarette Smoker P [facility] Start: 09-28-2022 Tobacco use and exposure Smokeless tobacco non-user [facility] Start: 09-28-2022 Alcoholic beverage intake Current drinker of alcohol (finding) [facility] Start: 01-02-2021 End: 09-28-2022 History of Social function [facility] Start: 01-02-2021 End: 09-28-2022 Tobacco use panel [facility] Childcare Unknown [facility] Start: 09-28-2022 Alcohol Comment occasional [facility] Start: 1955 Sex assigned at Not on file [facility] Start: 06-27-2015 Sex Male (finding) [facility] Clinical Notes 04-26-2022 to 06-11-2025 Telephone Encounter - Kenyetta Ross - 06/11/2025 11:44 AM EDTTelephone Encounter - Kenyetta Ross - 06/11/2025 11:44 AM EDTTelephone Encounter - Kenyetta Ross - 06/11/2025 11:44 AM EDT Note Date & Type Note Facility 06-11-2025 Miscellaneous Notes Called Wero regarding the positive cologuard referral that our office received from Dr Garcia, left a message on his voicemail to call the office back to schedule an appointment. Had previously tried to schedule an appointment but Wero wanted to discuss with PCP to make sure that he needs another colonoscopy. Called Wero regarding the referral that our office received, left a message on his voicemail to call the office back to schedule an appointment. Called Wero regarding the referral that our office received, left a message on his voicemail to call the office back to schedule an appointment. documented in this encounter [facility] 06-11-2025 Telephone encounter Note Called Wero regarding the positive cologuard referral that our office received from Dr Garcia, left a message on his voicemail to call the office back to schedule an appointment. Had previously tried to schedule an appointment but Wero wanted to discuss with PCP to make sure that he needs another colonoscopy. [facility] 06-11-2025 Telephone encounter Note Called Wero regarding the referral that our office received, left a message on his voicemail to call the office back to schedule an appointment. [facility] 06-11-2025 Telephone encounter Note Called Wero regarding the referral that our office received, left a message on his voicemail to call the office back to schedule an appointment. [facility] 05-21-2025 Miscellaneous Notes Called Garry regarding the positive cologuard referral that our office received from Dr Garcia, left a message to call the office back to schedule an appointment. Also: 5 YEAR RECALL, LAST COLONOSCOPY 10/28/2022 @ [facility] Called Wero regarding the referral that our office received, left a message on voicemail to call the office back to schedule an appointment. Wero called the office back, was not told of the positive cologuard results from PCP, told him to please call them for the full results. He is not sure that he wants to have another colonoscopy as he had one done 10/2022 with a 5 year recall. Wero states that he will call his PCP and discuss with them if he needs a colonoscopy, he states that he feels like they are just wanting him to be seen so that his insurance has to pay more. Told him to call us to schedule an appointment if wants to have a colonoscopy done. documented in this encounter [facility] 05-21-2025 Telephone encounter Note Called Garry regarding the positive cologuard referral that our office received from Dr Garcia, left a message to call the office back to schedule an appointment. Also: 5 YEAR RECALL, LAST COLONOSCOPY 10/28/2022 @ [facility] 05-21-2025 Telephone encounter Note Called Wero regarding the referral that our office received, left a message on voicemail to call the office back to schedule an appointment. [facility] 05-21-2025 Telephone encounter Note Wero called the office back, was not told of the positive cologuard results from PCP, told him to please call them for the full results. He is not sure that he wants to have another colonoscopy as he had one done 10/2022 with a 5 year recall. Wero states that he will call his PCP and discuss with them if he needs a colonoscopy, he states that he feels like they are just wanting him to be seen so that his insurance has to pay more. Told him to call us to schedule an appointment if wants to have a colonoscopy done. [facility] 05-04-2025 Note XR CHEST 2 VWS Procedure: Chest x-ray performed Number of views:2 History:Chronic cough Comparison:None Findings: The heart and lungs show no acute findings, and the mediastinum and donell are grossly negative . Impression: 1. No acute change. Finalized by Arthur Bray MD on 05/04/2025 10:13 AM [facility] 04-05-2025 Note Cardiovascular Medic ine [facility] SUBJECTIVE Chief Complaint Patient presents with Hypertension Garry Streeter is a 70 y.o. male here for follow-up. HPI PMHx: A-fib/atrial flutter s/p recent pulmonary vein isolation ablation 03/02/[address] Feliciano, tachycardia induced nonischemic cardiomyopathy, he has normal coronary arteries on cardiac catheterization 08/12/2022, HTN 04/05/2025 He is feeling well overall. He reports his BP has been doing better at home. His breathing, chest tightness, and palpitations have been improved. He notes continued chest congestion. PFTs were done and were abnormal. He needs to establish care with a new PCP. Denies c/o CP, dyspnea, orthopnea, PND, LE edema, dizziness/LH, palpitations, syncope. 03/06/2025 BP at home running 160s/90s. He has been feeling well. Denies c/o cp, dyspnea, neuro sx's. He has continued cough in the AM/chest congestion. PFTs space scheduler unable to get a hold of patient. We were able to get him scheduled today. 02/06/2025 He c/o worsened chest congestion along with wheezing in the past 5 months or so. Its affecting his sleep. He may sleep for 4 hours or so and then he will wake up and need to cough to try to clear out his chest congestion. He has only been taking eliquis once daily as he thought it may have contributed to his worsened chest congestion. Sx's did not improve with once daily. We discussed increased stroke risk with taking once daily - he agreed to resume taking twice daily. His BP is uncontrolled today. He notes that he felt like losartan was making his psoriasis worse - he stopped taking the losartan and his psoriasis improved. He was previously on spironolactone. He is not sure why he stopped taking it. Educated him on what its indication was for. He notes that he stays active. He cut down a tree by his house the day before. Denies c/o CP, dyspnea, orthopnea, PND, LE edema, dizziness/LH, palpitations, syncope. Patient Active Problem List Diagnosis Chronic systolic heart failure (CMS/HCC) Dyspnea Edema of lower extremity Paroxysmal atrial fibrillation (CMS/HCC) Pulmonary edema Psoriasis Typical atrial flutter (CMS/HCC) Essential hypertension Alcohol use NICM (nonischemic cardiomyopathy) (CMS/HCC) Pure hypertriglyceridemia Past Medical History: Diagnosis Date Abnormal ECG Arrhythmia CHF (congestive heart failure) (CMS/HCC) Dyspnea PAF (paroxysmal atrial fibrillation) (CMS/HCC) Systolic heart failure (CMS/HCC) Family History Problem Relation Name Age of Onset Cancer Father Colon cancer Brother Social History Tobacco Use Smoking status: Former Current packs/day: 0.00 Average packs/day: 1 pack/day for 10.0 years (10.0 ttl pk-yrs) Types: Cigarettes Start date: 05/05/1971 Quit date: 05/05/1981 Years since quittin.9 Smokeless tobacco: Never Vaping Use Vaping status: Never Used Substance Use Topics Alcohol use: Yes Alcohol/week: 16.0 standard drinks of alcohol Types: 8 Glasses of wine, 8 Shots of liquor per week Comment: beer daily evening mixed drinks Drug use: Never Allergies Allergen Reactions Tylenol [Acetaminophen] Other Skin bumps Review of Systems Constitutional: Negative for chills, decreased appetite, fever, malaise/fatigue and weight gain. Cardiovascular: Positive for dyspnea on exertion. Negative for chest pain, irregular heartbeat, leg swelling, near-syncope, orthopnea, palpitations, paroxysmal nocturnal dyspnea and syncope. Respiratory: Positive for sputum production. Hematologic/Lymphatic: Negative for bleeding problem. Does not bruise/bleed easily. OBJECTIVE Visit Vitals BP 149/90 (BP Location: Right arm, Patient Position: Sitting) Pulse 66 Ht 1.829 m (6') Wt 91.2 kg (201 lb) SpO2 97% BMI 27.26 kg/m??? Smoking Status Former BSA 2.15 m??? Medications: Current Outpatient Medications: metoprolol succinate XL (Toprol-XL) 100 mg 24 hr tablet, Take 1 tablet (100 mg) by mouth in the morning., Disp: 30 tablet, Rfl: 11 amLODIPine (Norvasc) 5 mg tablet, Take 1 tablet (5 mg) by mouth two times daily., Disp: 180 tablet, Rfl: 3 apixaban (Eliquis) 5 mg tablet, Take 1 tablet (5 mg) by mouth two times daily., Disp: 180 tablet, Rfl: 3 Physical Exam Constitutional: Appearance: Normal appearance. He is normal weight. HENT: Head: Normocephalic and atraumatic. Right Ear: External ear normal. Left Ear: External ear normal. Eyes: Extraocular Movements: Extraocular movements intact. Pupils: Pupils are equal, round, and reactive to light. Neck: Vascular: No carotid bruit. Cardiovascular: Rate and Rhythm: Normal rate and regular rhythm. Pulses: Normal pulses. Heart sounds: Normal heart sounds. Pulmonary: Effort: Pulmonary effort is normal. Breath sounds: Wheezing and rhonchi present. Abdominal: General: Bowel sounds are normal. Palpations: Abdomen is soft. Musculoskeletal: General: Normal ra (more content not included)... [facility] 04-05-2025 Note Patient is here toda y for a 1 month follow up appointment. Patient states he is feeling good cardiac kyle. Patient states he had his PFT done recently. Patient states he would like to talk about getting off the Metoproolo due to muscle pain and feeling like bugs crawling on him. Review of Systems Constitutional: Negative. [facility] 03-06-2025 Note Cardiovascular Medic [facility] SUBJECTIVE Chief Complaint Patient presents with Hypertension Atrial Fibrillation Cardiomyopathy Garry Streeter is a 70 y.o. male here for follow-up. HPI PMHx: A-fib/atrial flutter s/p recent pulmonary vein isolation ablation 03/02/[address] Feliciano, tachycardia induced nonischemic cardiomyopathy, he has normal coronary arteries on cardiac catheterization 08/12/2022, HTN 03/06/2025 BP at home running 160s/90s. He has been feeling well. Denies c/o cp, dyspnea, neuro sx's. He has continued cough in the AM/chest congestion. PFTs space scheduler unable to get a hold of patient. We were able to get him scheduled today. 02/06/2025 He c/o worsened chest congestion along with wheezing in the past 5 months or so. Its affecting his sleep. He may sleep for 4 hours or so and then he will wake up and need to cough to try to clear out his chest congestion. He has only been taking eliquis once daily as he thought it may have contributed to his worsened chest congestion. Sx's did not improve with once daily. We discussed increased stroke risk with taking once daily - he agreed to resume taking twice daily. His BP is uncontrolled today. He notes that he felt like losartan was making his psoriasis worse - he stopped taking the losartan and his psoriasis improved. He was previously on spironolactone. He is not sure why he stopped taking it. Educated him on what its indication was for. He notes that he stays active. He cut down a tree by his house the day before. Denies c/o CP, dyspnea, orthopnea, PND, LE edema, dizziness/LH, palpitations, syncope. Patient Active Problem List Diagnosis Chronic systolic heart failure (CMS/HCC) Dyspnea Edema of lower extremity Paroxysmal atrial fibrillation (CMS/HCC) Pulmonary edema Psoriasis Typical atrial flutter (CMS/HCC) Essential hypertension Alcohol use NICM (nonischemic cardiomyopathy) (CMS/HCC) Pure hypertriglyceridemia Past Medical History: Diagnosis Date Abnormal ECG Arrhythmia CHF (congestive heart failure) (CMS/HCC) Dyspnea PAF (paroxysmal atrial fibrillation) (CMS/HCC) Systolic heart failure (CMS/HCC) Family History Problem Relation Name Age of Onset Cancer Father Colon cancer Brother Social History Tobacco Use Smoking status: Former Current packs/day: 0.00 Average packs/day: 1 pack/day for 10.0 years (10.0 ttl pk-yrs) Types: Cigarettes Start date: 05/05/1971 Quit date: 05/05/1981 Years since quittin.8 Smokeless tobacco: Never Vaping Use Vaping status: Never Used Substance Use Topics Alcohol use: Yes Alcohol/week: 16.0 standard drinks of alcohol Types: 8 Glasses of wine, 8 Shots of liquor per week Comment: beer daily evening mixed drinks Drug use: Never Allergies Allergen Reactions Tylenol [Acetaminophen] Other Skin bumps ROS HENT: Positive for congestion (in the chest and head). Respiratory: Positive for cough, shortness of breath (with coughing spells), sleep disturbances due to breathing, sputum production and wheezing. Skin: Positive for dry skin and itching. Musculoskeletal: Positive for gout, joint pain and myalgias. All other systems reviewed and are negative. OBJECTIVE Visit Vitals BP (!) 164/97 (BP Location: Left arm, Patient Position: Sitting) Pulse 65 Ht 1.829 m (6') Wt 92.5 kg (204 lb) SpO2 96% BMI 27.67 kg/m??? Smoking Status Former BSA 2.17 m??? Medications: Current Outpatient Medications: amLODIPine (Norvasc) 5 mg tablet, Take 1 tablet (5 mg) by mouth in the morning., Disp: 30 tablet, Rfl: 11 apixaban (Eliquis) 5 mg tablet, Take 1 tablet (5 mg) by mouth two times daily., Disp: 60 tablet, Rfl: 11 metoprolol succinate XL (Toprol-XL) 100 mg 24 hr tablet, Take 1 tablet (100 mg) by mouth in the morning., Disp: 30 tablet, Rfl: 11 Physical Exam Constitutional: Appearance: Normal appearance. He is normal weight. HENT: Head: Normocephalic and atraumatic. Right Ear: External ear normal. Left Ear: External ear normal. Eyes: Extraocular Movements: Extraocular movements intact. Pupils: Pupils are equal, round, and reactive to light. Neck: Vascular: No carotid bruit. Cardiovascular: Rate and Rhythm: Normal rate and regular rhythm. Pulses: Normal pulses. Heart sounds: Normal heart sounds. Pulmonary: Effort: Pulmonary effort is normal. Breath sounds: Wheezing and rhonchi present. Abdominal: General: Bowel sounds are normal. Palpations: Abdomen is soft. Musculoskeletal: General: Normal range of motion. Cervical back: Neck supple. Right lower leg: No edema. Left lower leg: No edema. Skin: General: Skin is warm and dry. Neurological: General: No focal deficit present. Mental Status: He is alert and oriented to person, place, and time. Psychiatric: Mood and Affect: Mood normal. Behavior: Behavior normal. Thought Content: Thought content normal. Judgment: Judgment normal. Lab (more content not included)... [facility] 03-06-2025 Note Patient here for a f ollow up appointment. Patient did not have his PFT done. Patient states he was never called to do the PFT. Patient states he has been feeling pretty good. Patient denies chest pain, SOB. Patient states he had lots of phlegm and coughing at night patient states he take lots of [place] cough drops to clear up the phlegm so he can go back to sleep. Patient wonders if this could be from the metoprolol. Patient states he is not taking the Losartan, patient states when the does was increased he broke out with psoriasis. Review of Systems Constitutional: Negative. [facility] 02-06-2025 Note Patient here for 6 m o follow up persistent afib, valve disorder, hypertension, and NICM. Had routine labs with lipid panel last Jul. Says he stopped taking losartan because it gave him 50+ new patches of psoriasis. Says after stopping this his psoriasis is improving. He usually only takes Eliquis once daily. C/o chest/head congestion and trouble sleeping because of it. He is not taking spironolactone and he says someone ended it . Review of Systems HENT: Positive for congestion (in the chest and head). Respiratory: Positive for cough, shortness of breath (with coughing spells), sleep disturbances due to breathing, sputum production and wheezing. Skin: Positive for dry skin and itching. Musculoskeletal: Positive for gout, joint pain and myalgias. All other systems reviewed and are negative. [facility] 02-06-2025 Note Cardiovascular Medic [facility] SUBJECTIVE Chief Complaint Patient presents with Atrial Fibrillation Hypertension Congestive Heart Failure Garry Streeter is a 69 y.o. male here for follow-up. HPI PMHx: A-fib/atrial flutter s/p recent pulmonary vein isolation ablation 03/02/[address] Feliciano, tachycardia induced nonischemic cardiomyopathy, he has normal coronary arteries on cardiac catheterization 08/12/2022, HTN 02/06/2025 He c/o worsened chest congestion along with wheezing in the past 5 months or so. Its affecting his sleep. He may sleep for 4 hours or so and then he will wake up and need to cough to try to clear out his chest congestion. He has only been taking eliquis once daily as he thought it may have contributed to his worsened chest congestion. Sx's did not improve with once daily. We discussed increased stroke risk with taking once daily - he agreed to resume taking twice daily. His BP is uncontrolled today. He notes that he felt like losartan was making his psoriasis worse - he stopped taking the losartan and his psoriasis improved. He was previously on spironolactone. He is not sure why he stopped taking it. Educated him on what its indication was for. He notes that he stays active. He cut down a tree by his house the day before. Denies c/o CP, dyspnea, orthopnea, PND, LE edema, dizziness/LH, palpitations, syncope. Patient Active Problem List Diagnosis Chronic systolic heart failure (CMS/HCC) Dyspnea Edema of lower extremity Paroxysmal atrial fibrillation (CMS/HCC) Pulmonary edema Psoriasis Typical atrial flutter (CMS/HCC) Essential hypertension Alcohol use NICM (nonischemic cardiomyopathy) (CMS/HCC) Pure hypertriglyceridemia Past Medical History: Diagnosis Date Abnormal ECG Arrhythmia CHF (congestive heart failure) (CMS/HCC) Dyspnea PAF (paroxysmal atrial fibrillation) (CMS/HCC) Systolic heart failure (CMS/HCC) Family History Problem Relation Name Age of Onset Colon cancer Brother Social History Tobacco Use Smoking status: Former Current packs/day: 0.00 Average packs/day: 1 pack/day for 10.0 years (10.0 ttl pk-yrs) Types: Cigarettes Start date: 05/05/1971 Quit date: 05/05/1981 Years since quittin.7 Smokeless tobacco: Never Vaping Use Vaping status: Never Used Substance Use Topics Alcohol use: Yes Alcohol/week: 16.0 standard drinks of alcohol Types: 8 Glasses of wine, 8 Shots of liquor per week Comment: daily/occ Drug use: Never Allergies Allergen Reactions Tylenol [Acetaminophen] Other Skin bumps ROS HENT: Positive for congestion (in the chest and head). Respiratory: Positive for cough, shortness of breath (with coughing spells), sleep disturbances due to breathing, sputum production and wheezing. Skin: Positive for dry skin and itching. Musculoskeletal: Positive for gout, joint pain and myalgias. All other systems reviewed and are negative. OBJECTIVE Visit Vitals BP (!) 180/96 (BP Location: Right arm, Patient Position: Sitting) Pulse 59 Ht 1.829 m (6') Wt 96.2 kg (212 lb) SpO2 97% BMI 28.75 kg/m??? Smoking Status Former BSA 2.21 m??? Medications: Current Outpatient Medications: apixaban (Eliquis) 5 mg tablet, Take 1 tablet (5 mg) by mouth two times daily., Disp: 60 tablet, Rfl: 11 metoprolol succinate XL (Toprol-XL) 100 mg 24 hr tablet, Take 1 tablet (100 mg) by mouth in the morning., Disp: 30 tablet, Rfl: 11 amLODIPine (Norvasc) 5 mg tablet, Take 1 tablet (5 mg) by mouth in the morning., Disp: 30 tablet, Rfl: 11 spironolactone (Aldactone) 25 mg tablet, Take 1 tablet (25 mg) by mouth once daily as directed., Disp: 90 tablet, Rfl: 3 Physical Exam Constitutional: Appearance: Normal appearance. He is normal weight. HENT: Head: Normocephalic and atraumatic. Right Ear: External ear normal. Left Ear: External ear normal. Eyes: Extraocular Movements: Extraocular movements intact. Pupils: Pupils are equal, round, and reactive to light. Neck: Vascular: No carotid bruit. Cardiovascular: Rate and Rhythm: Normal rate and regular rhythm. Pulses: Normal pulses. Heart sounds: Normal heart sounds. Pulmonary: Effort: Pulmonary effort is normal. Breath sounds: Wheezing and rhonchi present. Abdominal: General: Bowel sounds are normal. Palpations: Abdomen is soft. Musculoskeletal: General: Normal range of motion. Cervical back: Neck supple. Right lower leg: No edema. Left lower leg: No edema. Skin: General: Skin is warm and dry. Neurological: General: No focal deficit present. Mental Status: He is alert and oriented to person, place, and time. Psychiatric: Mood and Affect: Mood normal. Behavior: Behavior normal. Thought Content: Thought content normal. Judgment: Judgment normal. Labs: Admission on 03/02/2024, Discharged on 03/02/2024 Component Date Value Ref Range Status Ventricular Rate 03/02/2024 59 BPM Final Atrial Rate 0 (more content not included)... [facility] 08-01-2024 Note [place] [facility] Consul t Note Reason for Consultation: Afib 08/01/24 Pt is here for a 3 month follow up, he had his labs drawn this morning.Pt has HTN, and mild MR, AI and KS. Pt is not taking his medications, he says he is taking side effects such as feelings of bugs crawling on his skin, being sensitive to sun. He says since he has stopped the meds he has a lot of flem. Pt says wheezing is the same. He underwent A-fib ablation on 03/02/2024 he was noted to have focal scarring In the LA which was ablated to perform substrate modification Along with PVI+ CTI plus substrate modification of the focal scarring. I did not perform a posterior box isolation. Subsequent EKGs performed on 05/05/2024 has revealed sinus rhythm with PAC. Pulse check today reveals sinus rhythm. 03/01/24 Pt here to discuss about ablation. EKG SR 01/12/24: He is here for afib ablation HP and consent He has noticed joint paint since starting amiodarone Discussed goal of ablation is hopefully come off amiodarone completely penitentiary He watched the educational videos sent to [...] by tachyarrhythmia recently was admitted to the [facility] 10/08/2023 with A-fib RVR Has been [...] dr. feliciano HPI: Garry Streeter is a 69 y.o. year old with past medical history [...] time. PMH: Past Medical History: Diagnosis Date Abnormal ECG Arrhythmia CHF (congestive heart failure) ([facility]) Dyspnea PAF (paroxysmal atrial fibrillation) ([facility]) Systolic heart failure ([facility]) PSH: Past Surgical History: Procedure Laterality Date ABLATION OF DYSRHYTHMIC FOCUS COLONOSCOPY SH: Social Determinants of Health Tobacco Use: Medium Risk (05/03/2024) Patient History Smoking Tobacco Use: Former Smokeless [...] Prior to Visit Medication Sig Dispense Refill amiodarone (Pacerone) 200 mg tablet Take 2 tablets (400 mg) by mouth in the morning and at bedtime for 14 days, THEN 1 tablet (200 mg) in the morning. (Patient taking differently: 1 tablet daily) 86 tablet 3 apixaban (Eliquis) 5 mg tablet Take 1 tablet (5 mg) by mouth in the morning and at bedtime. 60 tablet 11 losartan (Cozaar) 50 mg tablet Take 1 tablet (50 mg) by mouth in the morning. 30 tablet 3 metoprolol succinate XL (Toprol-XL) 100 mg 24 hr tablet Take 1 tablet (100 mg) by mouth in the morning. 30 tablet 11 spironolactone (Aldactone) 25 mg tablet Take 1 tablet (25 mg) by mouth once daily as directed. 90 tablet 3 allopurinol (Zyloprim) 300 mg tablet Take 300 mg by mouth in the morning. famotidine (Pepcid) 20 mg tablet Take 1 tablet (20 mg) by mouth in the morning and at bedtime. 60 tablet 0 fexofenadine HCl (MUCINEX SAVANNAH (more content not included)... [facility] 05-03-2024 Note [place] [facility] - [facility] Subjective Garry Streeter [...] bradycardia otherwise normal EKG Echo 01/13/2024 at [facility] ECHO 03/01/2023 at [facility] YOVANY and cardioversion 08/12/2022 Left Ventricle: [...] 08/12/2022 Procedures Performed: -Bilateral selective coronary angiography -Janet (more content not included)... [facility] 05-03-2024 Note Patient here for fol low up s/p afib ablation on 03/02/[address] Feliciano. Denies chest pain, SOB, and palpitations. Denies bleeding with Eliquis. Says he sometimes forgets to take his evening dose of Eliquis. Review of Systems Respiratory: Positive for wheezing. Skin: Positive for itching. Musculoskeletal: Positive for gout, joint pain and myalgias. All other systems reviewed and are negative. [facility] 04-26-2022 Note PROCEDURE: XR KNEE L T 4V or > COMPARISON: None. HISTORY: Swelling FINDINGS: BONES:No fracture, acute abnormality, or significant arthropathy. SOFT TISSUES:Negative. No visible soft tissue swelling. EFFUSION:Moderate suprapatellar joint effusion OTHER: Negative. IMPRESSION: Moderate joint effusion Electronically authenticated by: NICK CABRALES Date: 2022-04-26 10:09 [facility] Instructions Not on filedocumente d in this encounter [facility] Summary Purpose Family History No Family History Records FoundNo Family History Records FoundNo Family History Records FoundNo Family History Records Found Advance Directives No Advanced Directives Records FoundNo Advanced Directives Records FoundNo Advanced Directives Records FoundNo Advanced Directives Records Found Additional Source Comments (unrecognized sect ion and content) No Status Records FoundNo Status Records FoundNo Status Records FoundNo Status Records Found INFORMATION SOURCE (unrecogn ized section and content) DATE CREATED AUTHOR 10/30/2022 [facility] DATE CREATED AUTHOR AUTHOR'S ORGANIZ ATION 03/17/2023 [facility] DATE CREATED AUTHOR AUTHOR'S ORGANIZ ATION 04/09/2025 [facility] DATE CREATED AUTHOR AUTHOR'S ORGANIZ ATION 05/07/2025 [facility] Care Teams (unrecognized sec tion and content) Elementary School Director Relationship Specialty Start Date End Date Corinne Garcia MD [address] [place] [address] PCP - General Family Medicine 05/17/25 Elementary School Director Relationship Specialty Start Date End Date Corinne Garcia MD [address] [place], [place] [id number] PCP - General Family Medicine 05/17/25 FOR RECORDS PERTAINING TO PATIENTS WHO ARE [...] BE BASED ON THE PRIMARY CLINICAL RECORDS. [facility]. provides no warranty or guarantee of the accuracy or completeness of information in this document.
== END 2025-07-12 13:08 | disposition home or self-care (01) ==
LOC: CARD 13:07
PROVIDERS: Visit Provider Nurse Practitioner Family
DX: R94.31 Abnormal electrocardiogram [ECG] [EKG] (principal)
CPT/HCPCS: 93306

== ENCOUNTER 2025-10-05 10:50 | Emergency (ER) | payer MEDICARE, SELFPAY ==
--- OUTSIDE RECORDS SUMMARY | 2025-04-18 03:15 | XMS_ITS ---
Author Organization [facility] vices Address [address] [place], [place] [id number] Care Team Providers Care Fence Setter Name Role Rizwana Cochran Hernan Primary Care Provider Jose, Corinne Unavailable [phone] REASON FOR VISIT gout f/u Social History Sex Assigned At : Social History Observation Description Sex Assigned At Male Encounters Encounter Location Date Provider Diagnosis Third [address] [facility] [place] [address] [place] [address] 04/18/2025 Corinne Jose Plan Of Treatment Next Appt Details Provider Name:Hernan Cochran, 10/08/2025 07:30:00 AM, [address], [id number], Progress Notes * Wesly STREETERDOB:1955 (70 yo M)Acc No.[id number]:04/18/2025 Medical Note Patient: Wesly MAGANA :?Corinne C Jose, MDDOB:1955???Age:70 Y ???Sex:MaleDate:04/18/2025Phone:[phone]:[address] [place] [id number]:Hernan Cochran Subjective: * Chief Complaints: * 1 . Gout f/u. * Medical History: Objective: * Vitals: Assessment: Plan: * Treatment: * Billing Information: * Visit Code: * Procedure Codes: * Electronic signature of Corinne Garcia MD on 10/05/2025 at 10:57 AM ESTSign off status: Pending * Provider: Karie Gacria MD Date: 0 04/18/2025 Generated for Printing/Faxing/eTransmitting on:?10/05/2025 10:57 AM EST
--- OUTSIDE RECORDS SUMMARY | 2025-09-24 03:39 | XMS_ITS ---
Author Organization [facility] vices Address [address] [place], [place] [id number] Care Team Providers Care Assistant Credit Manager Name Role Phone Hernan Cochran Primary Care Provider Reason For Referral Reason chronic gout Diagnosis 1 Gout (M10.9) Referral Organization Main Referring Provider First Name Hernan Referring Provider Last Name Dimas Referring Provider Speciality Physician Heel Reducer Referred Provider Anand Rheumatolog y Referred Provider Specialty Rheumatology Referral Priority Routine REASON FOR VISIT Referral Social History Sex Assigned At : Social History Observation Description Sex Assigned At Male Encounters Encounter Location Date Provider Diagnosis Main [address], [place] [id number] 09/24/2025 Hernan Cochran Gout M10.9 Assessments Encounter Date Diagnosis (ICD Code) Assessment Notes Treatment Notes Treatment Clinical Notes Section Notes 09/24/2025 Gout (ICD-10 - M10.9) Plan Of Treatment Referrals Referral Date Details 09/25/2025 09/25/2025, chronic gout, [facility] Next Appt Details Provider Name:Hernan Cochran, 10/08/2025 07:30:00 AM, [address], [place], [id number], Progress Notes * Landon STREETER:1955 (70 yo M)Acc No.[id number]:09/24/2025 Patient:?SYLWesly :1955???Age:70 Y???Sex:MalePhone:[phone] Address:[address] [place] [address], [address] Subjective: * Chief Complaints: * R eferral * Medical History: * Surgical History: * Hospitalization/Major Diagno stic Procedure: * Medications: Objective: * Vitals: * Physical Examination: ??? Assessment: * Assessment: 1.?Gout - M10.9 (Primary)??? Plan: * Treatment: ? Referral To: [facility] Rheumat[facility]??Rheumatology ?Reason:chronic gout * Procedure Codes: * true * Date:?Generated for Printing/Faxing/eTransmitting on:?10/05/2025 10:56 AM EST Consultation Request Notes Referral Date Referring Provider Referred Provider Not marielle 09/25/2025 Hernan Cochran Rheumatology, changeover operator fabian gout
--- OUTSIDE RECORDS SUMMARY | 2025-09-24 15:30 | XMS_ITS | Encounter Summary ---
Author Organization [employer] Address [id number] [address] [place] [address] Care Team Providers Care Audit Spec Name Role Phone Corinne Garcia MD Primary Care Provider [phone] Reason for Visit * ReasonCommentsNew PatientReferral: from Dr Garcia, PCP, for bronchospasmSays bronchospasms are better since using Smoker: formerHow lon yearsPacks per Day: 1 pack per daySOB: rarelyO2: noneSleep Apnea: noneImaging: CXR PFT: ordered did not due. Had one in past and said he would not do again * Consultation (Routine) - Pending ReviewSpecialtyDiagnoses / ProceduresReferred By ContactReferred To ContactPulmonary Disease / Pulmonary Medicine Diagnoses Bronchospasm Corinne Garcia MD [address] [facility] [place] [address] Phone: tel: fax: [facility] Pul[facility] [address] [address] [place] [address] Phone: tel: fax: Referral IDStatusReasonStart DateExpiration DateVisits RequestedVisits [id number] Review Specialty Services Required Encounter Details DateTypeDepartmentCare Team (Latest Contact Info)Dksqpincndl45/03/2025 3:30 PM ESTOffice Visit [facility] [address] [place] [address] Neri Corona MD [address] [place], [place] [id number] Bronchospasm (Primary Dx); Shortness of breath; Nodule of lower lobe of right lung; History of smoking Social History Tobacco UseTypesPacks/DayYears UsedDateSmoking Tobacco: FormerCigarettes Smokeless Tobacco: NeverAlcohol UseStandard Drinks/WeekCommentsYes0 (1 standard drink = 0.6 oz pure alcohol)occasionalAUDIT-CAnswerDate RecordedQ1: How often do you have a drink containing alcohol?Never09/24/2025Q2: How many drinks containing alcohol do you have on a typical day when you are drinking?Patient does not drink09/24/2025Q3: How often do you have six or more drinks on one occasion?Never5ChildcareAnswerDate VzdehrmuEidgkzvbiJemoeod00/02/2019 EmploymentAnswerDate YhaqtpfjKqtooxfrwqVvlbmdg23/02/2019Purpose - LifeAnswerDate RecordedPurpose and direction in idujVnculyh70/11/2021ex and Gender Information ValueDate RecordedSex Assigned at BirthNot on fileLegal RnhZvog5006/27/2015 11:49 AM EDTGender IdentityNot on fileSexual OrientationNot on filedocumented as of this encounter Last Filed Vital Signs Vital SignReadingTime TakenCommentsBlood Rfezvqjd042/7811 3:25 PM EST Xgnhx147209/24/2025 3:25 PM ESTTemperature--Respiratory Rate--Oxygen Lkrqfyxglo82% 09/24/2025 3:25 PM ESTInhaled Oxygen Concentration--Bkvbii40.5 kg (195 lb) 09/24/2025 3:25 PM DTGWzjmtc733.9 cm (6')09/24/2025 3:25 PM ESTBody Mass Index 26.4511 3:25 PM ESTdocumented in this encounter Functional Status * AUDIT-C ScoreAnswerDate of PzgbrirlnnXolqym632/03/2025 3:25 PM Aubrie Merchant CMA * QuestionAnswerDate of AssessmentAuthorQ1: How often do you have a drink containing alcohol?Never09/24/2025 3:25 PM Aubrie Merchant CMAQ2: How many drinks containing alcohol do you have on a typical day when you are drinking?Patient does not drink09/24/2025 3:25 PM Aubrie Merchant CMA Q3: How often do you have six or more drinks on one occasion?Never09/24/2025 3:25 PM Aubrie Merchant CMA documented as of this encounter Progress Notes * Neri Corona MD - 09/24/2025 3:30 PM EST Images from the original note were not included. [facility] [address] [address] Subjective: Chief Complaint Bronchospasm HPI The patient is a 70-year-old male who was referred to us because of bronchospasm He has past medical history of congestive heart failure, atrial fibrillation/flutter status post ablation on 03/02/2024, essential hypertension, nonischemic cardiomyopathy, hyperlipidemia, gout. The patient stated that he was on some medications that caused a lot of coughing and productive phlegm 1-2 years ago. The medications were switched and he did not have these problems since a year. The patient feels great today. He denies any shortness of breath. He states that he is very active and does not get short of breath with exertion. He stated that he had this congestion in his chest and he was given albuterol inhaler that helped. He denies any nasal congestion or chest congestion. He had a chest x-ray on 05/04/2025 that is unremarkable. Patient is a former smoker, he smoked 1 packet per day for around 15 years and quit more than 30 years ago. 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 Very active. Review of Systems Allergies: Acetaminophen Past Medical History: Diagnosis Date A-fib ([facility]) 04/27/2022 Hx of gout Psoriasis History reviewed. No pertinent surgical history. ? Social History Tobacco Use Smoking Status Former Types: Cigarettes Smokeless Tobacco Never Social History Substance and Sexual Activity Alcohol Use Yes Comment: occasional Social History Substance and Sexual Activity Drug Use Never Social History Substance and Sexual Activity Sexual Activity Not on file ? Family History Problem Relation Age of Onset Cancer Father Hodgkin's lymphoma Father Social History Tobacco Use Smoking status: Former Types: Cigarettes Smokeless tobacco: Never Substance Use Topics Alcohol use: Yes Comment: occasional Objective: Vitals: 09/24/25 1525 BP: 131/78 Pulse: 62 SpO2: 98% Physical Exam Vitals and nursing note reviewed. Constitutional: General: He is not in acute distress. Appearance: Normal appearance. He is not ill-appearing, toxic-appearing or diaphoretic. HENT: Head: Normocephalic and atraumatic. Nose: No congestion. Mouth/Throat: Mouth: Mucous membranes are moist. Eyes: Extraocular Movements: Extraocular movements intact. Cardiovascular: Rate and Rhythm: Normal rate and regular rhythm. Heart sounds: Normal heart sounds. Pulmonary: Effort: Pulmonary effort is normal. No respiratory distress. Breath sounds: Normal breath sounds. No stridor. No wheezing, rhonchi or rales. Chest: Chest wall: No tenderness. Abdominal: Palpations: Abdomen is soft. Musculoskeletal: Cervical back: Neck supple. Skin: General: Skin is warm and dry. Coloration: Skin is not jaundiced. Neurological: Mental Status: He is alert and oriented to person, place, and time. Mental status is at baseline. Psychiatric: Mood and Affect: Mood normal. Most recent Labs, images were reviewed and independently verified. Assessment/Plan: Impression Bronchospasm Right lower lobe calcified granuloma 5 mm, no need for follow up. History of smoking Atrial fibrillation status post ablation Essential hypertension Nonischemic cardiomyopathy Recommendations Okay to continue albuterol inhaler as needed. The pulmonary function test that he had on 03/16/2025 in [facility] showed FEV1 of 74% with improvement by 20% after bronchodilators, FEV1/FVC ratio at 0.7 before and after bronchodilators, the flow volume loops is consistent with obstructive pattern that improved with bronchodilators. The response to bronchodilators is positive. Also showed residual volume of 159% of predicted indicating gas trapping and total lung capacity of 120% indicating hyperinflation. The patient denies any history of wheezing, asthma in childhood or adult onset asthma. Patient has no symptoms. I think it is reasonable to repeat spirometry and lung volumes and go from there Patient was advised to stay active. Discussed the plan of care in details with the patient. Follow up after the PFT. Thank you for involving me in this patient's care. Neri Corona MD. Pulmonary and Critical Care Physician 09/24/25. Please note that portions of this note were generated using voice recognition [employer] dictation software. Although every effort was made to ensure the accuracy of this automated triple air valve tester, some errors in triple air valve tester may have occurred. documented in this encounter Plan of Treatment DateTypeDepartmentCare Team (Latest Contact Info)Ltyuesdjzhn75/20/2025 8:30 AM ESTAppointment [facility] [address] [place] [phone] Neri Corona MD [address] [place] [address] 11/05/2025 10:00 AM ESTOffice Visit [facility] [address] [facility] [address] [address] [place] [phone] [place] [address] [place] [address], [address] [place], [place] [id number] NameTypePriorityAssociated DiagnosesOrder SchedulePulmonary function test Spirometry (Flow Volume Loop) pre/post short acting bronchodilator w/ Lung V olumePFTRoutine Bronchospasm 1 Occurrences starting 09/24/2025 until 09/24/2026documented as of this encounter Visit Diagnoses Diagnosis Bronchospasm- Primary Acute bronchospasm Shortness of breath Nodule of lower lobe of right lung History of smoking Personal history of tobacco use, presenting hazards to health documented in this encounter Care Teams Team MemberRelationshipSpecialtyStart DateEnd Date Corinne Garcia MD [address] [place], [place] [id number] PCP - GeneralFamily Medicine05/17/25documented as of this encounter
[2025-10-05 10:51] VITALS: BP 148/71; PULSE 78; TEMP 36.5; O2SAT 95; BMI 26.4
--- OUTSIDE RECORDS SUMMARY | 2025-10-05 10:57 | XMS_ITS | Patient Health Record ---
Author Organization [facility] vices Address [address] [place], [place] [id number] Care Team Providers Care Java Sybase Developer Name Role Phone Hernan Cochran Primary Care Provider Moriah Allred Unavailable [phone] Shonda Morton Unavailable Corinne Garcia Unavailable [phone] Allergies Allergen (clinical drug ingredient) Drug/Non Drug Allergy documented on EMR Reaction Allergy Type Onset Date Status losartan Losartan psoriasis Drug Allergy Active Results Component Value Reference Range Notes Cologuard Reviewed date:07/11/2025 03:00:28 PM Interpretation: Performing Lab: Notes/Report: Cologuard positive POCT A1C Reviewed date:05/02/2025 10:40:08 AM Interpretation: Performing Lab: Notes/Report:SED RATE, AUTOMATED Reviewed date:04/18/2025 08:42:12 AM Interpretation: Performing Lab: Notes/Report:SED RATE, XJLWEWFRB38-04 MM/HRURIC ACID Reviewed date:04/18/2025 08:42:09 AM Interpretation: Performing Lab: Notes/Report:URIC ACID7.73.4-7.0 mg/dLTherapeutic target for gout patients: <6.0 C REACTIVE PROTEIN (INFLAMMATORY) Reviewed date:04/18/2025 08:42:18 AM Interpretation: Performing Lab: Notes/Report:C REACTIVE PROTEIN1.1<0.5 mg/dL UNLESS OTHERWISE INDICATED, ALL TESTING PERFORMED AT: [employer] [address] [place] [address] GROUP CONTROLLER: ABRAHAN YEN M.D. CLIA NUMBER [id number] [facility] ACCREDITATION AUID [id number] Ultrasound : Doppler : Veins Leg Right Reviewed date:04/18/2025 01:52:23 PM Interpretation: Performing Lab: Notes/Report: CBC AND AUTOMATED DIFFERENTIAL Reviewed date:05/02/2025 02:11:49 PM Interpretation: Performing Lab: Notes/Report:WBC6.94-11 x10E9/LRBC COUNT4.174.1-5.7 X10E12/DKGXNWWTQYX28.813-17 g/kQCIKNLJEZZV23.739-50 %DCL1269-866 fLMCH33.027-34 ldMBLU65.732-36 g/dLRDW13.4 11.5-15 %PLATELET IBORM596431-620 X10E9/LMPV8.57-12 fLEOSINOPHILS RELATIVE PERCENT BY AUTOMATED COUNT6.4BASOPHILS RELATIVE PERCENT BY AUTOMATED COUNT0.8 NEUTROPHILS ABSOLUTE COUNT BY AUTOMATED COUNT4.71.5-6.6 10*3/uLLYMPHOCYTES ABSOLUTE COUNT (10*3/UL) BY AUTOMATED COUNT1.31.0-3.5 10*3/uLMONOCYTES ABSOLUTE COUNT (10*3/UL) BY AUTOMATED COUNT0.50.0-0.9 10*3/uLEOSINOPHILS ABSOLUTE COUNT (10*3/UL) BY AUTOMATED COUNT0.40.0-0.4 10*3/uLCELLAVISION DIFFERENTIAL TYPE AUTOMATED DIFFERENTIAL PERFORMED AT [address] [place] [address] NEUTROPHILS RELATIVE PERCENT BY AUTOMATED COUNT67.0LYMPHOCYTES RELATIVE PERCENT BY AUTOMATED COUNT18.6MONOCYTES RELATIVE PERCENT BY AUTOMATED COUNT7.2BASOPHILS ABSOLUTE COUNT (10*3/UL) BY AUTOMATED COUNT0.10.0-0.2 10*3/uLCOMPREHENSIVE METABOLIC PANEL Reviewed date:05/02/2025 02:11:37 PM Interpretation: Performing Lab: Notes/Report: PERFORMED AT [address], [place] [address] not use a race coefficient. CKD-EPI 2020 equation that does Reported eGFR is based on odgRPEWOD556594-977 mmol/LPOTASSIUM4.03.5-5.0 mmol/L JBLWBZIT63074-613 mmol/LCARBON PTOGZTU3386-43 mmol/LANION YAE026-27 mmol/LBLOOD UREA QNFPNEET593-54 mg/dLCREATININE0.910.60-1.30 mg/dLMETHOD TRACEABLE TO IDMS KJOOGHWZNXJXHAS35783-58 mg/dLCALCIUM9.38.5-10.5 mg/dLTOTAL PROTEIN7.36.0-8.0 g/dLALBUMIN4.23.2-5.3 g/dLALKALINE AGAXCPIUTIR8356-933 U/LAST16<=41 U/L BILIRUBIN,TOTAL0.90.3-1.2 mg/dLALT13<=40 U/LEGFR (CKD-EPI) NON-RACE TEMTZTLER12 >=60 ml/min/1.73sq.mLIPID PROFILE Reviewed date:05/02/2025 02:11:13 PM Interpretation: Performing Lab: Notes/Report:TXRTXIJPHWR501950-206 mg/vQWQQNZFVMLAPR68401-659 mg/dLHDL LYMDHABETTI33>39 mg/dL HDL <40 mg/dL - High Risk HDL > or = 40mg/dL- Desirable HDL >60 mg/dL - Negative Risk LDL (CALC)93<130 mg/dL LDL <100 mg/dL - Desirable LDL >160 mg/dL - High Risk CHOLESTEROL:HDL4.21.0-5.0 NAVERY LOW PALMEWZPUQR543-87 mg/dL PERFORMED AT [facility] [address],[place] [address] CHEST 2 VWS Reviewed date:05/04/2025 11:05:08 AM Interpretation: Performing Lab: Notes/Report: SEE RESULTS BELOW Procedure: Chest x-ray performed Reason For Referral Reason COPD vs ASTHMA EVAL Diagnosis 1 Bronchospasm (J98.01 ) Referral Organization Third Referring Provider First Name Corinne Referring Provider Last Name Jose Referring Provider Speciality Family Med icine Referred Provider [facility] Referred Provider Specialty Pulmonology General Notes Shameka Ag 06/04/20 03:19:33 PM >Referral office did recieve fax but stated they have not reached out., I sent pt referral txt.Yahaira Jeff 06/06/2025 03:29:49 PM >Sent fax asking office if appt scheduled yet. Yahaira aquino Jeff 06/14/2025 08:45:31 AM >Sent 2nd fax to office requesting appt date. Given til 06/21 before contacting pt. Yahaira aquino Jeff 06/22/2025 09:10:59 AM >sent text to pt to call and f/u with [facility]. Ancelmo aquino Kasie 07/05/2025 09:34:20 AM >Closing due to policy and no response from pt Referral Priority Routine Reason positive cologuard.. pls schedule for colonoscopy Diagnosis 1 Positive colorectal cancer screening using Cologuard test (R19.5) Referral Organization Third Referring Provider First Name Corinne Referring Provider Last Name Jose [facility] Referred Provider Skyler Brown Referred Provider Specialty General Surg honorio General Notes Shameka Ag 06/05/20 10:04:36 AM >Sent pt referral followup [place] Shameka Ag 06/07/2025 10:01:31 AM >Spoke with referral office and they stated they had spoke with pt and pt was unsure why he was being referred for a colonoscopy. Stated he was not contacted by PCP. Referral office stated that pt was not due for another 2026 and if they did one before pt was due then pt would be responsible for the bill. Referral Priority Routine Reason chronic gout Diagnosis 1 Gout (M10.9) Referral Organization Main Referring Provider First Name Hernan Referring Provider Last Name Dimas Referring Provider Speciality Physician Paper Machine Supervisor Referred Provider Anand Rheumatolog kim Referred Provider Specialty Rheumatology Referral Priority Routine Medications Medication SIG (Take, Route, Frequency, Duration) Notes Start Date End Date Status Colchicine 0.6 MG day 1: take two tabl et and one tablet one hour later, day 2-4 take one tablet twice a day Orally Twice a day; Duration: 5 days 5ActiveAllopurinol 100 mgTAKE 1 TABLET BY MOUTH ONCE DAILY; Duration: 30ActiveColchicine 0.6 MG1 tablet Orally Twice a day; Duration: 5 daysActive Metoprolol Succinate ER 100 MGTAKE 1 TABLET BY MOUTH IN THE MORNING Oral; Duration: 30 DaysNot-TakingXarelto 20 MGOral; Duration: 30 DaysNot-Taking Colchicine 0.6 MGday 1: take two tablet and one tablet one hour later, day 2-4 take one tablet twice a day Orally Twice a day; Duration: 5 days5Active amLODIPine Besylate 5 MG2 tablet Orally Once a dayNot-TakingXarelto 20 MGOral; Duration: 30 DaysNot-Taking Immunizations Vaccine Route Administration Date Status Comme nts *Tuoaxmsmh-Axpnxspdh-Suphd te IM Intramuscular 10/04/2023 Administered *Pneumococcal polysaccharide ZIP99-BydjrloVjbcmis99/16/2018Administered*Tdap (Adacel)-PrivateIM Gmurvsfxuqtaj66/13/2023dministered Social History Tobacco Use: Social History Observation Description Date Details (start date - stop date) Former Smoker NA - NA Sex Assigned At : Social History Observation Description Sex Assigned At Male Tobacco Use/Smoking Question Answer Notes Tobacco use: nonsmoker patient enter ed data When did you start smoking? 05/28/1969 p atient entered data When did you stop smoking? 11/22/1991 reynaldo marsh entered data How long has it been since you last smoked? > 10 years patient entered data CAGE-AID Questionnaire (2018 Edition) Question Answer Notes Have you ever felt that you ought to cut down on your drinking or drug use? No patient entered data Have people annoyed you by c riticizing your drinking or drug use? No patient entered data Have you ever felt bad or gu ilty about your drinking or drug use? No patient entered data Have you ever had a drink or used drugs first thing in the morning to steady your nerves or to get rid of a hangover? No patient entered data CAGE-AID Score 0 InterpretationNegativePRAPARE Question Answer Notes Date Completed/Updated: 04/11/2025 hcristo nt entered data What is your current housing situation? I have housing patient entered data Are you worried about losing your housing? No patient entered data What is the highest level of school that you have finished? 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 Check all that apply I do not have problems meeting my needs Has lack of transportation kept you from medical appointments, meetings, work or from getting things needed for daily living?NoHow often do you see or talk to people that you care about and feel close to? (For example: talkingto friends on the phone, visiting friends or family, going to synagogue or club meetings)Less than once a weekpatient entered dataHow stressed are you? Stress is when someone feels tense, nervous, anxious, or can't sleep at nightbecause their mind is troubledA little bitpatient entered dataIn the past year have you spent more than 2 nights in a row in a usp, skilled nursing, group home center, orjuvenile correctional facility?Nopatient entered dataAre you a refugee?Nopatient entered dataWhat country are you from?[place] Statespatient entered dataDo you feel physically and emotionally safe where you currently live?Yespatient entered dataIn the past year, have you been afraid of your partner or ex-partner?Nopatient entered dataPRAPARE Score:5Tobacco Control (Standard) Question Answer Notes Tobacco use: Former smoker How long has it been since you last smoked?Greater than 10 years Problems Problem Type SNOMED Code ICD Code Onset Dates Problem Status W/U Status Risk Notes Problem Essential hypertension (58297384) Essenti al hypertension (I10) ActiveconfirmedProblemSolitary nodule of lung (595451542)Lung nodule seen on imaging study (R91.1)ActiveconfirmedProblemOverweight (635227708)Overweight (BMI 25.0-29.9) (E66.3)ActiveconfirmedProblemGout (87629633)Gout (M10.9)Active confirmedProblemAtrial fibrillation (85921605)Atrial fibrillation, unspecified type (I48.91)ActiveconfirmedProblemGout of ankle and/or foot caused by drug (785511766809382)Acute drug-induced gout involving toe of left foot (M10.272) Activeconfirmed Vital Signs Heart Rate 61 /min 09/06/2025 Leeanne Euceda 09/06/2025 09:22:38 AM EDT > Temperature 98.2 degrees Fahrenheit 09/06/2025 Leeanne Adler 09/06/2025 09:22:38 AM EDT > Respiratory Rate 18 /min 09/06/2025 Jensen Euceda 09/06/2025 09:22:38 AM EDT > Height-cm 182.88 cm 09/06/2025 Leeanne Euceda 09/06/2025 09:22:38 AM EDT > Oximetry 99 % 09/06/2025 Leeanne Euceda 09/06/2025 09:22:38 AM EDT > Blood pressure diastolic 82 mm Hg 09/06/2025 Leeanne Goldberg 09/06/2025 09:22:38 AM EDT > Weight-kg 89.27 kg 09/06/2025 Leeanne Euceda 09/06/2025 09:22:38 AM EDT > Height 72.00 in 09/06/2025 Leeanne Euceda 09/06/2025 09:22:38 AM EDT > Blood pressure systolic 140 mm Hg 09/06/2025 Leeanne Adler 09/06/2025 09:22:38 AM EDT > Weight 196.8 lbs 09/06/2025 Leeanne Euecda 09/06/2025 09:22:38 AM EDT > BMI 26.69 kg/m2 09/06/2025 Leeanne Euceda 09/06/2025 09:22:38 AM EDT > Encounters Encounter Location Date Provider Diagnosis [facility] [address] [place] [id number] 04/11/2025 Corinne Jose Gout flare M10.9 and Leg swelling M79.[address] [phone] 04/18/2025 Corinne Jose Gout M10.9 and Es sential (primary) hypertension I10 [facility] [address] [place] [phone] 05/02/2025 Corinne Jose Encounter for wel lness examination Z00.00 ; Screening for diabetes mellitus Z13.1 ; Encounter for screening for HIV Z11.4 ; Screening for colon cancer Z12.11 ; Screening for abdominal aortic aneurysm Z13.6 ; Encounter for screening for cardiovascular disorders Z13.6 ; Dietary counseling Z71.3 ; Exercise counseling Z71.82 ; Overweight (BMI 25.0-29.9) E66.3 and Cough R05.9 [facility] [address] [facility] [place] [address] 05/04/2025 Corinne Jose Chronic cough R05 .3 ; Bronchospasm J98.01 and Ankle pain M25.[address] [place] , [place] [id number] 07/19/2025 Hernan Studd Acute drug-induced g out involving toe of left foot M10.272 ; Atrial fibrillation, unspecified type I48.91 and Essential hypertension I10 [address] [place] , [place] [id number] 08/02/2025 Hernan Studd Gout M10.[address] [place] , [place] [id number] 09/06/2025 Hernan Studd Gout M10.9 ; Essenti al hypertension I10 and Atrial fibrillation, unspecified type I48.[address] [place], [place] [id number] 05/04/2025 Corinne Jose [address] AVRadha [facility] [address]/26/2025Ogechi OnuohaPositive colorectal cancer screening using Cologuard test R19.3Xyju4993 [address] [facility] [address]/24/2025Justin StuddGout M10.5Fvji[address] [place], [place] [address]/03/2025Justin StuddGout M10.2Qtxk[address] [facility] [place] [address]/11/2025Justin HgwqrGvtw0[address] AVRadha [facility] [id number] 10/03/2025[address] [facility] [address]/12/2025[address]in [address] [facility] [address]/14/2025Shonda Morton Assessments Encounter Date Diagnosis (ICD Code) Assessment Notes Treatment Notes Treatment Clinical Notes Section Notes 07/19/2025 Acute drug-induced g out involving toe of left foot (ICD-10 - M10.272) At this time I will refill colchine and give one refill to have on hand for another flare up in thefuture i have asked to reschedule in 2 weeks to discuss a uric acid lowering therapy pt is agreeable 08/02/2025Gout (ICD-10 - M10.9)greatly improved at this time as he is able to walk in int with no crutches I will start allopurinol explained the risks to the patient and he verbalized understandingwill also start a colchine to have on hand for first signs of a flare up pt. follow in 4 weeks will consider the increase of the allopurinol if kzmhhb0109/06/2025Essential hypertension (ICD-10 - I10) Encouraged to restart medications that are prescribed by the scaffolding helper including restarting the amlodipine as his BP was elevated today in office 09/06/2025Gout (ICD-10 - M10.9) At this point appears to be improving I will order colchine as needed to continue the allopurinol for the patient at this time follow in 6 weeks for resolution if improved at that time can increase frequency between appointments 09/14/2025Gout (ICD-10 - M10.9)09/24/2025Gout (ICD-10 - M10.9)04/18/2025Gout (ICD-10 - M10.9) The patient was instructed on the criteria for starting allopurinol, which include: Uric acid level above 9 mg/dL or persistently above 6mg/dl Chronic kidney disease (CKD) A history of kidney stones Two or more gout flare-ups per year The patient has only experienced this single flare-up, and he demonstrated an understanding of the situation. He was advised that allopurinol can be considered if he experiences a second flare-up. Hewas given a list of gout trigger foods. 05/02/2025Screening for diabetes mellitus (ICD-10 - Z13.1)05/02/2025Encounter for wellness examination (ICD-10 - Z00.00) Pt is here for wellness today. Overall health is okay. I advised to get baseline tests and pt is agreeable for that. I advised regular exercise and eating a balanced diet with focus on eating less fried and fatty foods and eating more fresh fruits and vegetable in an attempt to achieve and maintain a healthy BMI and PVU 05/04/2025ronchospasm (ICD-10 - J98.01)Use albuterol as needed for increased symptoms. If daily use becomes necessary, inform the clinic, as we may need to escalate therapy. A referral to pulmonology will be made for further evaluation. 05/04/2025hronic cough (ICD-10 - R05.3)chest X-ray (CXR) has been ordered to rule out infection. if fever, SOB, chest pain seek ER care. pt voiced understanding.05/17/2025Positive colorectal cancer screening using Cologuard test (ICD-10 - R19.5)07/19/2025Essential hypertension (ICD-10 - I10) Discussed restarting metoprolol or amlodipine pt declined stating that they are causing the gout, and he will discuss with cardiology educated on the risks of elevated BP pt and verbalized understanding pt will go to the Er with any new or worsening symptoms of but not limited to chest pain, shortnessof breath, blurry vision, or headaches 07/19/2025trial fibrillation, unspecified type (ICD-10 - I48.91)educated that he shouldd be t[facility]ain [facility] until he sees the caridolgist as the risk of UT, storke and other complications due to Afib are possible depsite having an /21/2025Leg swelling (ICD-10 - M79.89)Patient presents with significant swelling from the knee down to the entire foot. A venous ultrasound has been ordered to rule out deep vein thrombosis (DVT). The swelling may also be secondary to ongoing inflammation.04/11/2025Gout flare (ICD-10 - M10.9) Notes: DDX: gout flare up, trauma, arthitis, cellulitis, bursitis. Labs sent for inflammator markers, pt was advised to take OTC Nsaids pain relief meds as needed, will send colchine to pharmacy. if pain persist or no improvement on meds will get imaging studies. f/u one week Advised to rest leg, keep leg elevated and ice soaks to reduce inflammation 04/18/2025Essential (primary) hypertension (ICD-10 - I10)Follows with scaffolding helper.05/04/2025nkle pain (ICD-10 - M25.579)pt advised to rest the ankle and apply ice to reduce swelling. Use anti-inflammatory medication with food. If symptoms worsen, an X-ray will be considered. RTC if symptom worsens.05/02/2025 Encounter for screening for HIV (ICD-10 - Z11.4)09/06/2025trial fibrillation, unspecified type (ICD-10 - I48.91) Follow with cardiology encouraged to take the Xarelto pt will go to the Er with any new or worsening symptoms of but not limited to chest pain, shortnessof breath, blurry vision, or headaches 05/02/2025Screening for colon cancer (ICD-10 - Z12.11)05/02/2025Screening for abdominal aortic aneurysm (ICD-10 - Z13.6)05/02/2025Encounter for screening for cardiovascular disorders (ICD-10 - Z13.6)05/02/2025Dietary counseling (ICD-10 - Z71.3)05/02/2025Exercise counseling (ICD-10 - Z71.82)05/02/2025Overweight (BMI 25.0-29.9) (ICD-10 - E66.3)05/02/2025ough (ICD-10 - R05.9)will address at nxt appt in 2-3 days The patient was advised to continue using Mucinex and Flonase, and provided with home remedies. He was also instructed on when to seek immediate ER care, including symptoms such as fever, greenish sputum, or shortness of breath. Plan Of Treatment Next Appt Details Provider Name:Hernan Cochran, 10/08/2025 07:30:00 AM, [address], [place], [id number], Insurance Providers Payer Name Payer Address Payer Phone Subscriber Number Group Number Insured Name Patient Relationship to Insured Coverage Start Date Coverage End Date Medicare NGS PPS [address] [place], [place] [id number] Stephanie Luelf - patient is the [id number] 2020Bailey Senior Supplement[address] [address] [place], [place] [id number], Stephanieelf - patient is the [id number] 2024 Medical (General) History Medical History History ICD Code Atrial fibrillation, unspecified type I4 8.91 Acute drug-induced gout involving toe of left foot M10.272 Essential (primary) hypertension I10 Surgical History Surgery Date(Month/Year) COLONOSCOPY AND BIOPSY 10/2022 Heart catheterization 08/12/22 Heart ablation 03/02/24 Hospitalization History Reason Date(Month/Year) breathing 09/2023 Atrial Fibrillation 04/2022
--- OUTSIDE RECORDS SUMMARY | 2025-10-05 10:57 | XMS_ITS | Clinical Summary ---
Author Organization [facility] Address [address] [place] [address] Care Team Providers Care Infertility Medical Assistant Name Role Phone Hernan Cochran Primary Care Provider [phone] Allergies Active AllergyReactionsCriticalityNoted VvwrFmykcsihRqdaotsuQszdygg23/04/2025 UcvpprtfwnrpjVmhsbUlv09/25/2022 Skin bumps Medications MedicationSigDispense QuantityRefillsLast FilledStart DateEnd DateStatus acetaminophen (Tylenol) 500 mg tablet Take 500 mg by mouth every 6 (six) hours if needed for mild pain (1-3 pain score).Active rivaroxaban (Xarelto) 20 mg tablet Indications:Paroxysmal atrial fibrillation (CMS/HCC)Take 1 tablet (20 mg) by mouth daily with evening meal. Take with food. 90 tablet 5Active Additional Information Patient not taking.Reported on 09/11/2025 amLODIPine (Norvasc) 5 mg tablet Indications:Essential hypertensionTake 1 tablet (5 mg) by mouth in the morning. 6Active allopurinol (Zyloprim) 100 mg tablet Take 100 mg by mouth in the morning.5Active rivaroxaban (Xarelto) 10 mg tablet Indications:Paroxysmal atrial fibrillation (CMS/HCC)Take 1 tablet (10 mg) by mouth in the morning. 30 tablet 5Active Active Problems ProblemNoted DateDiagnosed DateDrug-induced gout, left ankle and foot07/26/2025 Gout kpphko0707/26/2025Lung nodule seen on imaging study07/26/2025Overweight 07/26/2025NICM (nonischemic cardiomyopathy)05/03/2024ure hypertriglyceridemia 05/03/2024Essential uszmtcejtmxe40/11/2024lcohol use03/02/2024Typical atrial iofwzrb3010/22/20235834Uboxgoiwy42/07/2022hronic systolic heart jwqydsu4605/04/2022 Assessment & Plan (02/03/2023 12:16 PM EDT): [facility] I-II Currently appears euvolemic, Without exacerbation Pharmacy [...] that I prescribed today because he pretty muchdenies any of this Previous history And is only concerned about diarrhea and being able to fish this coming summer. Provided with heart failure booklet Return to clinic with Dr. Holland for further conversation and medication management Staff To obtain recent labs from PCP Qaoasdp0005/04/2022 Assessment & Plan (02/03/2023 12:17 PM EDT): Stable Edema of lower muuznfeys67/13/2022 Assessment & Plan (02/03/2023 12:17 PM EDT): No edema today Paroxysmal atrial /13/2022 Assessment & Plan (02/03/2023 12:17 PM EDT): EKG today-Sinus bradycardia with PACs/PVCs- And artifact, Otherwise normal EKG He is adamant he is still taking Eliquis anticoagulation, Pharmacy denies that he is filled Eliquisor metoprolol in the last 6 months. Discussed with patient risk for stroke with paroxysmal atrial fib- He states he has cardia Monitor at home and he has not had any A-fib Pulmonary edema05/04/2022 Encounters DateTypeDepartmentCare CouuUnjegiahbnn67/21/2025 10:00 AM EDTOffice Visit [facility] [address] [facility] [place] [address] Harriett Curtis CNP Paroxysmal atrial fibrillation (CMS/HCC) (Primary Dx); Essential hypertension; NICM (nonischemic cardiomyopathy) (CMS/HCC); LVH (left ventricular hypertrophy); Heart failure with recovered ejection fraction (HFrecEF) (CMS/HCC); History of cardiac radiofrequency sheipxnd97/04/2025 2:00 PM EDTOffice Visit [facility] [address] [facility] [place] [address] Harriett Curtis CNP Paroxysmal atrial fibrillation (CMS/HCC) (Primary Dx); Essential hypertension; LVH (left ventricular hypertrophy); NICM (nonischemic cardiomyopathy) (CMS/HCC); Heart failure with recovered ejection fraction (HFrecEF) (CMS/HCC); Benign hypertensive heart disease with heart failure (CMS/HCC); History of cardiac radiofrequency ablation; Pure hypertriglyceridemiafrom Last 3 Months Immunizations ImmunizationAdministration DatesNext DueInfluenza, High-dose Seasonal, Quadrivalent, Preservative Free1Pneumococcal Polysaccharide PPV23 04/06/2018Unspecified Sars-Cov-2 Dgsdjuzzvgd13/19/2021,02/12/2021,01/23/2021 Family History Medical HistoryRelationNameCommentsColon cancerBrotherCancerFatherRelationName StatusCommentsBrotherDeceasedFatherDeceasedMotherDeceasedSisterDeceased Social History Tobacco UseTypesPacks/DayYears UsedDateSmoking Tobacco: GbdxxhMilnloyxhe283 05/05/1971 - 05/05/1981Smokeless Tobacco: Never Tobacco Cessation:Counseling Given: Not Answered Alcohol UseStandard Drinks/AbxbWaxebqwwMuj51 (1 standard drink = 0.6 oz pure alcohol)beer daily evening mixed drinksHumiliation, Afraid, Rape, and Kick questionnaireAnswerDate RecordedWithin the last year, have you been afraid of your partner or ex-partner?No03/01/2024Within the last year, have you been humiliated or emotionally abused in other ways by your partner or ex-partner?No 03/01/2024Within the last year, have you been kicked, hit, slapped, or otherwise physically hurt by your partner or ex-partner?No03/01/2024Within the last year, have you been raped or forced to have any kind of sexual activity by your part ner or ex-partner?No03/01/2024HQ-2AnswerDate RecordedPatient Health Questionnaire-2 Cqedp785UT Safety & EnvironmentAnswerDate RecordedWithin the last year, have you been afraid of your partner or ex-partner?No03/01/2024 Within the last year, have you been humiliated or emotionally abused in other ways by your partner or ex-partner?No03/01/2024Within the last year, have you been kicked, hit, slapped, or otherwise physically hurt by your partner or ex-partner?03/01/2024Within the last year, have you been raped or forced to have any kind of sexual activity by your partner or ex-partner?No03/01/2024 Physically or Sexually AbusedNot on file03/01/2024Sex and Gender Information ValueDate RecordedSex Assigned at CwilvLiwm99/21/2022 7:38 AM EDTLegal SexMale 05/21/2022 12:45 AM EDTGender TiesfogsOjtl27/21/2022 7:38 AM EDTSexual OrientationHeterosexual or Mylalwci17/21/2022 7:38 AM EDT Last Filed Vital Signs Vital SignReadingTime TakenCommentsBlood Ccdxbjqz363/8509/11/2025 10:13 AM EDT Xxtme679609/11/2025 10:13 AM OICEeamicedsfv60.3 ??C (97.3 ??F)03/02/2024 3:30 PM EDTRespiratory Yqmk803703/02/2024 3:30 PM EDTOxygen Zryvhonees87%09/11/2025 10:13 AM EDTInhaled Oxygen Concentration--Rzwrct88.5 kg (195 lb)09/11/2025 10:13 AM HDIHsnhwt520.9 cm (6')09/11/2025 10:13 AM EDTBody Mass Index26.451 10:13 AM EDT Plan of Treatment DateTypeDepartmentCare Team (Latest Contact Info)Irlfqqufqjz15/26/2025 9:40 AM ESTOffice Visit [facility] [address] [place] [address] Harriett Curtis, [employer] MECHANIC [address] [place] [address] Health MaintenanceDue DateLast DoneCommentsCT Unfyiysbpamr1953Colonoscopy 1955olorectal Cancer Jwgxrmohz1953FIT-DNA1953FIT1955 FOBT1955Medicare Annual Wellness (AWV)03/07/19538267Qmkrqzfyclhot1953 Depression Tssppaula53/16/1965Zoster Vaccines (1 of 2)2003Fall Risk Qbepayicy60/16/2018Pneumococcal Vaccine: 50+ Years (2 of 2 - PCV)04/06/2019 04/06/2018COVID-19 Vaccine (4 - season), 09/09/2021, 02/12/2021, Additional history existsInfluenza Vaccine (#1)5112/04/2022, 09/09/2021dult Ygfqycr47HIB VaccinesAged OutNo longer eligible based on patient's age to complete this topicHPV VaccinesAged OutNo longer eligible based on patient's age to complete this topicIPV VaccinesAged OutNo longer eligible based on patient's age to complete this topicMeningococcal B VaccineAged OutNo longer eligible based on patient's age to complete this topicMeningococcal VaccineAged OutNo longer eligible based on patient's age to complete this topicRotavirus VaccinesAged OutNo longer eligible based on patient's age to complete this topic Insurance * Guarantor: Wesly Lu TypeRelation to PatientDate of BirthPhone Billing AddressPersonal/HutuvjSxsj1955 [address] [address] [place] [address] Advance Directives * Full Code (Latest Code Status on File) Date ActivatedDate InactivatedComments03/02/2024 12:32 PM03/02/2024 6:33 PM * Full Code Date ActivatedDate InactivatedComments03/02/2024 12:32 PM03/02/2024 12:32 PM * Full Code Date ActivatedDate InactivatedComments08/12/2022 11:51 AM08/12/2022 6:37 PM Care Teams Team MemberRelationshipSpecialtyStart DateEnd Date Hernan Cochran PA [address] [place] [id number] PCP - GeneralPhysician Assistant07/26/25 [facility] [address] [place], [place] [id number] Primary Care Provider08/06/22
--- OUTSIDE RECORDS SUMMARY | 2025-10-05 10:57 | XMS_ITS | Encounter Summary ---
Author Organization [facility] Address [facility] [id number] [address] [place] [address] Care Team Providers Care Telegraphic Typewriter Installer Name Role Phone Corinne Garcia MD Primary Care Provider [phone] Encounter Details DateTypeDepartmentCare Team (Latest Contact Info)Erabotuvqty62/03/2025Travel Social History Tobacco UseTypesPacks/DayYears UsedDateSmoking Tobacco: FormerCigarettes Smokeless Tobacco: NeverAlcohol UseStandard Drinks/WeekCommentsYes0 (1 standard drink = 0.6 oz pure alcohol)occasionalAUDIT-CAnswerDate RecordedQ1: How often do you have a drink containing alcohol?Never09/24/2025Q2: How many drinks containing alcohol do you have on a typical day when you are drinking?Patient does not drink09/24/2025Q3: How often do you have six or more drinks on one occasion?Never5ChildcareAnswerDate BpfaidhyTbmsiuiagQyewgsq37/02/2019 EmploymentAnswerDate TsytcnqkLokhcwppylAcqzuct10/02/2019Purpose - LifeAnswerDate RecordedPurpose and direction in lppvYuqdbmt24/11/2021ex and Gender Information ValueDate RecordedSex Assigned at BirthNot on fileLegal HuwSlpt6706/27/2015 11:49 AM EDTGender IdentityNot on fileSexual OrientationNot on filedocumented as of this encounter Functional Status * AUDIT-C ScoreAnswerDate of TzpsothaznIhmfyb597/03/2025 3:25 PM Aubrie Merchant CMA * QuestionAnswerDate [...] Merchant CMA documented as of this encounter Plan of Treatment DateTypeDepartmentCare Team (Latest Contact Info)Gbrvhctujfi51/20/2025 8:30 AM ESTAppointment [facility] - [facility] [address] [place] [address] Neri Corona MD [address] [facility] [place] [address] 11/05/2025 10:00 AM ESTOffice Visit [facility] [place] [address] Neri Corona MD [address] [facility] [place], [place] [address] documented as of this encounter Visit Diagnoses Not on filedocumented in this encounter Care Teams Team MemberRelationshipSpecialtyStart DateEnd Date Corinne Garcia MD [address] [place] [address] PCP - GeneralFamily Medicine05/17/25documented as of this encounter
--- OUTSIDE RECORDS SUMMARY | 2025-10-05 10:57 | XMS_ITS | Encounter Summary ---
Author Organization [facility] [facility] Address [facility] [id number] [address] [place] [address] Care Team Providers Care Oilseed Meat Presser Name Role Phone Corinne Garcia MD Primary Care Provider [phone] Encounter Details DateTypeDepartmentCare Team (Latest Contact Info)Khghpihxwiu39/03/2025Orders Only [facility] Pulmonary/Sleep Medicine [address] [facility] [place] [phone] External, Scanning Provider Social History Tobacco UseTypesPacks/DayYears UsedDateSmoking Tobacco: FormerCigarettes Smokeless Tobacco: NeverAlcohol UseStandard Drinks/WeekCommentsYes0 (1 standard drink = 0.6 oz pure alcohol)occasionalAUDIT-CAnswerDate RecordedQ1: How often do you have a drink containing alcohol?Never09/24/2025Q2: How many drinks containing alcohol do you have on a typical day when you are drinking?Patient does not drink09/24/2025Q3: How often do you have six or more drinks on one occasion?Never5ChildcareAnswerDate DcthmyenVtltmilejTzokgfg05/02/2019 EmploymentAnswerDate OqmscnklArzfejurcaUnfopmb64/02/2019Purpose - LifeAnswerDate RecordedPurpose and direction in vsvoOcgtitc17/11/2021ex and Gender Information ValueDate RecordedSex Assigned at BirthNot on fileLegal EglMnpp0106/27/2015 11:49 AM EDTGender IdentityNot on fileSexual OrientationNot on filedocumented as of this encounter Functional Status * AUDIT-C ScoreAnswerDate of QvfmkkgdpkGorhdz515/01/2025 3:25 PM Aubrie Merchant CMA * QuestionAnswerDate [...] Plan of Treatment DateTypeDepartmentCare Team (Latest Contact Info)Vmnvzblvwns35/20/2025 8:30 AM ESTAppointment [facility] - [facility] [address] [place] [address] Neri Corona MD [address] [facility] [place] [address] 11/05/2025 10:00 AM ESTOffice Visit [facility] Pulmonary[facility]Sleep Medicine [facility], [facility] [facility] [address] [place] [address] [place] [address] [place] [address], [address] [place] [address] documented as of this encounter Procedures Procedure NamePriorityDate/TimeAssociated DiagnosisCommentsPULMONARY FUNCTION HRWMXvahsfh85/25/2025 4:28 PM EDTdocumented in this encounter Results * Pulmonary function test (03/16/2025 4:28 PM EDT) Narrative Authorizing ProviderResult TypeResult StatusScanning Provider ExternalPFT ORDERABLESFinal ResultPerforming OrganizationAddressCity/State/ZIP CodePhone Number MANUALLY TRANSCRIBED RESULTS documented in this encounter Visit Diagnoses Not on filedocumented in this encounter Care Teams Team MemberRelationshipSpecialtyStart DateEnd Date Corinne Garcia MD [address] [facility] [place] [address] PCP - GeneralFamily Medicine05/17/25documented as of this encounter
--- OUTSIDE RECORDS SUMMARY | 2025-10-05 10:57 | XMS_ITS | Clinical Summary ---
Author Organization [employer] Address [facility] [id number] [address] [place] [address] Care Team Providers Care Receiving Operator Name Role Phone Corinne Garcia MD Primary Care Provider [phone] Allergies Active AllergyReactionsCriticalityNoted DateCommentsAcetaminophenOther (See Comments)09/15/2022 Skin bumps Medications MedicationSigDispense QuantityRefillsLast FilledStart DateEnd DateStatus ibuprofen (ADVIL,MOTRIN) 800 mg tablet Take 1 tablet (800 mg total) by mouth 3 (three) times a day as needed for pain for up to 30 doses. 30 tablet 01/10/2018Active Additional Information Patient not taking.Reported on 09/24/2025 sod sulf-pot chloride-mag sulf 1.479-0.188- 0.225 gram tablet See instructional sheet given by office. Patient was given a [employer] coupon voucher to use, this is not to be ran through patients insurance. 24 tablet 09/28/2022ctive Additional Information Patient not taking.Reason: Not effective, Reported on 09/24/2025 apixaban (ELIQUIS) 5 mg tablet Take 1 tablet (5 mg total) by mouth in the morning and 1 tablet (5 mg total) before bedtime.Active furosemide (LASIX) 20 mg tablet Take 1 tablet (20 mg total) by mouth daily.07/30/2022ctive metoprolol succinate XL (TOPROL XL) 100 mg 24 hr tablet Take 1 tablet (100 mg total) by mouth in the morning.09/09/2022ctive ENTRESTO 24-26 mg tablet TAKE 1 TABLET BY MOUTH TWICE DAILY (IN THE MORNING & AT BEDTIME)2Active sod sulf-pot chloride-mag sulf 1.479-0.188- 0.225 gram tablet See instructional sheet given by office. Patient was given a [employer] coupon voucher to use, this is not to be ran through patients insurance. 24 tablet 09/28/2022ctive Additional Information Patient not taking.Reason: Not effective, Reported on 09/24/2025 acetaminophen (TYLENOL EXTRA STRENGTH) 500 mg tablet Take 1 tablet (500 mg total) by mouth every 6 (six) hours as needed.Active albuterol (PROVENTIL HFA;VENTOLIN HFA) 90 mcg/actuation inhaler INHALE 1 PUFF BY MOUTH EVERY 4 HOURS NEEDEDActive allopurinoL (ZYLOPRIM) 100 mg tablet TAKE 1 TABLET BY MOUTH ONCE DAILY; Duration: 5Active amLODIPine (NORVASC) 5 mg tablet Take 1 tablet (5 mg total) by mouth in the morning.506Active colchicine (COLCRYS) 0.6 mg tablet ON DAY 1 TAKE 2 TABLETS BY MOUTH THEN 1 TABLET 1 HOUR LATER. ON DAYS 2-4 TAKE 1 TABLET BY MOUTH TWICE DAILYActive naproxen (EC NAPROSYN) 500 mg EC tablet 1 tablet as needed with meal Orally every 12 hrs for 5 days5Active Active Problems ProblemNoted DateDiagnosed NreeOgdbpxeds99/07/2022-fib04/27/2022 Encounters DateTypeDepartmentCare JhxtTbxcexnvczk98/03/2025 3:30 PM ESTOffice Visit [facility] [address] [place] [address] Neri Corona MD Bronchospasm (Primary Dx); Shortness of breath; Nodule of lower lobe of right lung; History of obcvckw1209/24/2025Orders Only [facility] Pulmonary/Sleep Medicine [address] [place] [address] External, Scanning Provider 09/24/20256904Drggfu99/05/2025Orders Only [facility] Pulmonary/Sleep Medicine [address] [address] Neri Corona MD Dyspnea on exertion (Primary Dx)07/27/2025Telephone [facility] Pulmonary/Sleep Medicine [address] [address] Carmen Phillip from Last 3 Months Family History Medical HistoryRelationNameCommentsCancerFatherHodgkin's lymphomaFatherRelation NameStatusCommentsFatherDeceasedMotherDeceased Social History Tobacco UseTypesPacks/DayYears UsedDateSmoking Tobacco: FormerCigarettes Smokeless Tobacco: Never Tobacco Cessation:Counseling Given: Not Answered Alcohol UseStandard Drinks/WeekCommentsYes0 (1 standard drink = 0.6 oz pure alcohol)occasionalAUDIT-CAnswerDate RecordedQ1: How often do you have a drink containing alcohol?Never09/24/2025Q2: How many drinks containing alcohol do you have on a typical day when you are drinking?Patient does not drink09/24/2025Q3: How often do you have six or more drinks on one occasion?Never09/24/2025 ChildcareAnswerDate BxweaxajKfmxonpqgAoudgot31/02/2019EmploymentAnswerDate ImdzmowoShwgmtgiumFsvozfd76/02/2019Purpose - LifeAnswerDate RecordedPurpose and direction in tfcpVdxttcm65/11/2021ex and Gender InformationValueDate Recorded Sex Assigned at BirthNot on fileLegal AbmJfsa7806/27/2015 11:49 AM EDTGender IdentityNot on fileSexual OrientationNot on file Last Filed Vital Signs Vital SignReadingTime TakenCommentsBlood Gxoydejs891/7809/24/2025 3:25 PM EST Nobsj100709/24/2025 3:25 PM IROKebmoydkovj51.2 ??C (97.1 ??F)09/28/2022 2:31 PM ESTRespiratory Xsth480804/23/2019 6:00 PM EDTOxygen Hqitzmnqzv29%09/24/2025 3:25 PM ESTInhaled Oxygen Concentration--Uwgwjd86.5 kg (195 lb)09/24/2025 3:25 PM EST Jhbyge971.9 cm (6')09/24/2025 3:25 PM ESTBody Mass Index26.45111/24/2024 3:25 PM EST Plan of Treatment DateTypeDepartmentCare Team (Latest Contact Info)Ggxapkzqjlf04/20/2025 8:30 AM ESTAppointment [facility] [address] [facility] [place] [address] Neri Corona MD [address] [facility] [place] [address] 11/05/2025 10:00 AM ESTOffice Visit [facility] Pul[facility]Sleep Medicine [address] [facility] [place] [address] Neri Corona MD [address] [facility] [place] [address] Health MaintenanceDue DateLast DoneCommentsDepression Mokydriaz50/16/1965Adult BMI Follow Up Plan1971Zoster (Shingles) Vaccine (1 of 2)2003 Abdominal Aortic Aneurysm (AAA) Nnzcpx5303/07/2018Fall Risk Jrtwsgehq81/16/2018 COVID-19 Vaccine ( season), 02/12/2021, 01/23/2021Influenza Vicrqum06, 09/09/2021dult BMI Screening Tobacco Dvfmvhvbd29olonoscopy10/28/2027 10/28/2022SV ( or age 60+ yrs) (1 - 1-dose 75+ series)2028 DTaP,Tdap and Td Vaccines (2 - Td or Tdap) Medical Devices Not on file Procedures Procedure NamePriorityDate/TimeAssociated DiagnosisCommentsCOLONOSCOPYRoutine 10/28/2022 Diarrhea, unspecified type Family history of colon cancer from Last 3 Months or Most Recently Relevant to Health Maintenance Results * Colonoscopy (10/28/2022) Narrative Authorizing ProviderResult TypeResult StatusMichael Radha BYRNE PROCEDURE ORDERABLESFinal ResultPerforming OrganizationAddressCity/State/ZIP CodePhone Number MANUALLY TRANSCRIBED RESULTS from Last 3 Months or Most Recently Relevant to Health Maintenance Insurance * Guarantor: Wesly Lu TypeRelation to PatientDate of BirthPhone Billing AddressPersonal/LozqdnLola1955 [address] [address] Care Teams Team MemberRelationshipSpecialtyStart DateEnd Date Corinne Garcia MD [address] [place] [address] PCP - GeneralFamily Medicine05/17/25
[2025-10-05 10:59] VITALS: O2SAT 98
[2025-10-05 11:26] LABS: Hematocrit 35.8 % (42.0-54.0); Hemoglobin 12.2 g/dL (14.0-18.0); Immature Granulocytes Abs Auto 0.04 10^3/uL (0.00-0.03); Immature Granulocytes Pct Auto 0.4 % (0.0-0.5); Lymphocytes Absolute Auto 1.2 10^3/uL (1.2-3.8); Mean Corpuscular HGB Conc 34.1 g/dL (29.9-35.2); Mean Corpuscular Hemoglobin 30.9 pg (25.9-34.0); Mean Corpuscular Volume 90.6 fL (80.0-94.0); Platelet Count 193 10^3/uL (150-450); Red Blood Count 3.95 10^6/uL (4.70-6.10); White Blood Count 9.9 10^3/uL (4.0-11.0)
[2025-10-05 11:43] LABS: Alanine Aminotransferase 16 U/L (16-63); Albumin Globulin Ratio 0.7; Albumin Level 3.0 g/dL (3.4-5.0); Alkaline Phosphatase 85 U/L (46-116); Anion Gap 12.2; Aspartate Amino Transferase 10 U/L (15-37); Blood Urea Nitrogen 14.0 mg/dL (7.0-18.0); Calcium 9.1 mg/dL (8.5-10.1); Carbon Dioxide 30.7 mmol/L (21.0-32.0); Chloride 96 mmol/L (98-107); Estimated GFR (African America >60 (>=60 mL/min/1.73m^2); Estimated GFR (Non-African Ame >60 (>=60 mL/min/1.73m^2); Globulin 4.4 g/dL; Glucose 101 mg/dL (74-106); Potassium 3.9 mmol/L (3.5-5.1); Sodium 135 mmol/L (136-145); Total Protein 7.4 g/dL (6.4-8.2); Uric Acid 4.3 mg/dL (3.5-7.2)
--- NOTE | 2025-10-05 12:29 | ED.EXTPRO1 ---
HPI - Extremity Problem General Chief complaint: Extremity Problem, Nontraumatic Stated complaint: SHOULDER PAIN Time Seen by Provider: 10/05/25 10:53 Source: patient Mode of arrival: ambulance Limitations: no limitations History of Present Illness HPI Narrative: 71-year-old male presenting to the ER by the EMS after he has been having some swelling in his ankle as well as his knee and recently he just started having his right shoulder swollen as well. Had a diagnosis of possible gout at the end of August when he was started on allopurinol but since then he had at least 2 flareup during which he gets treated with. Colchicine but when she is done with it he gets worse The patient denies any fever chills or any other concern no history of fall or trauma Related Data Home Medications ?Medication ?Instructions ?Recorded ?Confirmed apixaban 5 mg tablet (Eliquis) 5 mg PO BID 09/27/23 10/08/23 furosemide 20 mg tablet 20 mg PO QAM 09/27/23 10/08/23 losartan 50 mg tablet 50 mg PO QAM 09/27/23 10/08/23 metoprolol succinate 100 mg 200 mg PO BID 09/27/23 10/08/23 tablet,extended release 24 hr potassium chloride 20 mEq 20 meq PO DAILY 09/27/23 10/08/23 tablet,extended release spironolactone 25 mg tablet 25 mg PO DAILY 09/27/23 10/08/23 Previous Rx's ?Medication ?Instructions ?Recorded albuterol sulfate 90 mcg/actuation 2 inh inhalation Q4H PRN shortness 09/29/23 aerosol inhaler (Ventolin HFA) of breath or wheezing #6.7 grams acetaminophen 650 mg 650 mg PO Q8H PRN pain #20 tabs 10/05/25 tablet,extended release (Tylenol 8 Hour) colchicine 0.6 mg tablet 0.6 mg PO BID PRN pain #10 tabs 10/05/25 prednisone 20 mg tablet 40 mg (2 x 20 mg) PO DAILY 5 days 10/05/25 #10 tabs Allergies Allergy/AdvReac Type Severity Reaction Status Date / Time No Known Drug Allergies Allergy Verified 10/05/25 10:55 Review of Systems ROS Status of ROS 10 or more systems reviewed and unremarkable except as noted in history and below 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 Highest level of school completed/degree received: high school graduate Are you now , , , , never or living with a partner: In a typical week, how many times do you talk on the telephone with family, friends, or neighbors: once per week How often do you get together with friends or relatives: once per week How often do you attend orthodox or yazidi services: never Do you belong to any clubs or organizations such as orthodox groups unions, fraternal or athletic groups, or school groups: yes Total score: 2 Score interpretation: A score of greater than or equal to 2 indicates the lowest level of social isolation. Little interest or pleasure in doing things: not at all Feeling down, depressed, or hopeless: not at all Feel stressed/tense/nervous/anxious/difficulty sleeping: not at all Do you think of yourself as: straight/heterosexual Gender Identity: male Exam Narrative Exam Narrative: Nurses notes and vital signs reviewed and patient is not hypoxic. General: Well-appearing and in no apparent distress. Skin: Warm, dry, no pallor noted. No rash. The patient had bilateral lower extremity exam show: No vascular injury detected the patient have a good anterior tibial pulse but he also have a significant effusion of the left knee as well as left ankle with no redness and there is no hotness and there is no open wound or any signs of bacterial infection. There is limitation of movement due to swelling Neurological: A&O x4. No cranial nerve dysfunction observed. No truncal ataxia. Moves all extremities. Sensation intact. Psychiatric: Cooperative and interactive. Normal mood and affect. Constitutional Vital Signs, click to edit/add: Last Vital Signs Temp 97.7 F 10/05/25 10:51 Pulse 73 10/05/25 12:53 Resp 18 10/05/25 12:53 BP 138/75 10/05/25 12:53 Pulse Ox 99 10/05/25 12:53 O2 Del Method Room Air 10/05/25 12:53 Course Vital Signs Vital signs: Vital Signs Temperature 97.7 F 10/05/25 10:51 Pulse Rate 78 10/05/25 10:51 Respiratory Rate 20 10/05/25 10:51 Blood Pressure 148/71 H 10/05/25 10:51 Pulse Oximetry 95 10/05/25 10:51 Temperature 97.7 F 10/05/25 10:51 Pulse Rate 73 10/05/25 12:53 Respiratory Rate 18 10/05/25 12:53 Blood Pressure 138/75 10/05/25 12:53 Pulse Oximetry 99 10/05/25 12:53 Oxygen Delivery Method Room Air 10/05/25 12:53 MDM - Extremity (Nontraumatic) MDM Narrative Medical decision making narrative: The patient CBC and chemistry showed no acute pathology Right now I did explain to the patient that his presentation could be secondary to something other than gout because there is also other diseases can present with a similar picture The patient was started on Solu-Medrol here in the ER discharged home with prednisone for the next 5 days with Abram wrap as well as Tylenol He will be discharged also with colchicine as a backup for pain control and he was referred to orthopedic as outpatient He was instructed about coming back to the ER in case of any redness or any hotness or any signs of active infection The patient to follow-up with the primary care within 2 to 3 days and to come back to the ER in case of any worsening of the current symptoms or any new symptoms or concerns Lab Data Labs: Lab Results 11/14/25 Range/Units 11:19 WBC 9.9 (4.0-11.0) 10^3/uL RBC 3.95 L (4.70-6.10) 10^6/uL Hgb 12.2 L (14.0-18.0) g/dL Hct 35.8 L (42.0-54.0) % MCV 90.6 (80.0-94.0) fL MCH 30.9 (25.9-34.0) pg MCHC 34.1 (29.9-35.2) g/dL RDW 13.3 (11.0-15.0) % Plt Count 193 (150-450) 10^3/uL MPV 10.0 (9.5-13.5) fL Neut % (Auto) 75.1 H (43.0-75.0) % Lymph % (Auto) 12.6 L (20.5-60.0) % [place] % (Auto) 11.1 (1.7-12.0) % Eos % (Auto) 0.4 L (0.9-7.0) % Baso % (Auto) 0.4 (0.2-2.0) % Neut # (Auto) 7.4 H (1.4-6.5) 10^3/uL Lymph # (Auto) 1.2 (1.2-3.8) 10^3/uL [place] # (Auto) 1.1 H (0.3-0.8) 10^3/uL Eos # (Auto) 0.0 (0.0-0.7) 10^3/uL Baso # (Auto) 0.0 (0.0-0.1) 10^3/uL Abs Immat Gran (auto) 0.04 H (0.00-0.03) 10^3/uL Imm/Tot Granulo (auto) 0.4 (0.0-0.5) % Sodium 135 L (136-145) mmol/L Potassium 3.9 (3.5-5.1) mmol/L Chloride 96 L (98-107) mmol/L Carbon Dioxide 30.7 (21.0-32.0) mmol/L Anion Gap 12.2 BUN 14.0 (7.0-18.0) mg/dL Creatinine 0.86 (0.70-1.30) mg/dL Est GFR ( Amer) >60 (>=60 mL/min/1.73m^2) Est GFR (Non-Af Amer) >60 (>=60 mL/min/1.73m^2) BUN/Creatinine Ratio 16.3 Glucose 101 (74-106) mg/dL Uric Acid 4.3 (3.5-7.2) mg/dL Calcium 9.1 (8.5-10.1) mg/dL Total Bilirubin 1.1 H (0.2-1.0) mg/dL AST 10 L (15-37) U/L ALT 16 (16-63) U/L Alkaline Phosphatase 85 (46-116) U/L Total Protein 7.4 (6.4-8.2) g/dL Albumin 3.0 L (3.4-5.0) g/dL Globulin 4.4 g/dL Albumin/Globulin Ratio 0.7 Discharge Plan Discharge Chief Complaint: Extremity Problem, Nontraumatic Clinical Impression: Arthritis involving multiple sites Patient Disposition: Home, Self-Care Time of Disposition Decision: 12:29 Condition: Good Prescriptions / Home Meds: New prednisone 20 mg tablet 40 mg PO DAILY 5 Days Qty: 10 0RF acetaminophen [Tylenol 8 Hour] 650 mg tablet extended release 650 mg PO Q8H PRN (Reason: pain) Qty: 20 0RF colchicine 0.6 mg tablet 0.6 mg PO BID PRN (Reason: pain) Qty: 10 0RF No Action metoprolol succinate 100 mg tablet extended release 24 hr 200 mg PO BID losartan 50 mg tablet 50 mg PO QAM Eliquis 5 mg tablet 5 mg PO BID potassium chloride 20 mEq tablet extended release 20 meq PO DAILY furosemide 20 mg tablet 20 mg PO QAM spironolactone 25 mg tablet 25 mg PO DAILY albuterol sulfate [Ventolin HFA] 90 mcg/actuation HFA aerosol inhaler 2 inh inhalation Q4H PRN (Reason: shortness of breath or wheezing) Qty: 6.7 0RF Print Language: Setswana Instructions: Gout (ED), Arthritis (ED) Referrals: [facility] [Primary Care Provider, Unknown] - 1 week Arnulfo Montemayor DO [Physician, Orthopedics] - 1 week Discharge Date/Time: 10/05/25 12:54
[2025-10-05] MEDS: METHYLPREDNISOLONE SOD SUCC PF 125 MG/2 ML VIAL IVP (12:30)
[2025-10-05 12:53] VITALS: BP 138/75; PULSE 73; O2SAT 99
== END 2025-10-05 12:54 | disposition home or self-care (01) ==
PROVIDERS: Emergency Provider Emergency Medicine
DX: M13.89 Other specified arthritis, multiple sites (principal); Z87.891 Personal history of nicotine dependence
CPT/HCPCS: 36415; 80053; 84550; 85025; 96374; 99284; J2919

== ENCOUNTER 2025-10-30 10:41 | Outpatient (OUT) | payer MEDICARE, SELFPAY ==
--- OUTSIDE RECORDS SUMMARY | 2025-10-30 05:05 | XMS_ITS | Continuity of Care Document ---
Author Organization [facility] Address [address] [place] [address] Phone Care Team Providers Care Associate Teacher Name Role Phone Ry John MD Attending Provider NON STAFF Primary Care Provider Bryson Romero MD Attending Provider Unavailable Hernan Cochran PA-C Primary Care Provider [phone] Care Teams Patient Care Team Team Status: Active Member Role/Relationship Status Dates Hernan Cochran PA-C Primary Care Provider Active Visit Care Team Team Status: Inactive Member Role/Relationship Status Dates Ry John MD Attending Provider Active Star t: October 09, 2025 End: October 09, 2025NON STAFFPrimary Care ProviderActiveStart: October 09, 2025 End: October 09, 2025 Visit Care Team Team Status: Inactive Member Role/Relationship Status Dates Ry John MD Attending Provider Active Star t: October 09, 2025 End: October 09, 2025NON STAFFPrimary Care ProviderActiveStart: October 09, 2025 End: October 09, 2025 Visit Care Team Team Status: Inactive Member Role/Relationship Status Dates NON STAFF Primary Care Provider Active Start: October 22, 2025 End: October 22, 2025Thanthony John MDAttending ProviderActiveStart: October 22, 2025 End: October 22, 2025 Patient Care Team Team Status: Inactive Member Role/Relationship Status Dates Bryson Handy MD Attending Provider Active Sta rt: October 30, 2025 End: October 30, 2025JuKristina Zhangimaezio Care ProviderActiveStart: October 30, 2025 End: October 30, 2025 Chief Complaint and Reason for Visit Chief Complaint Admit Date ER [facility] LT KNEE AND RT SHOULDER PAIN NX N ovember 2024 9:15am M25.511 - Pain in right shoulder M25.562 - Pain in October 09, 2025 9:19am 2 WEEKS October 22, 2025 9 :31am REF DR JOHN MONOARTHRITIS, LT KNEE Dece mber 2024 9:16am Reason for Visit Admit Date Arthritis of left knee October 09 9:15am Hx of gout October 09, 2025 9:15am Inflammation of joint of left knee Novem 2024 9:15am Multiple joint pain October 09, 2025 9:15am Right shoulder tendonitis October 09, 2025 9:15am Arthritis of left knee October 22 9:31am Hx of gout October 22, 2025 9 :31am Inflammation of joint of left knee Decem 2024 9:31am Multiple joint pain October 22, 2025 9 :31am Right shoulder tendonitis October 22, 2025 9:31am Chronic idiopathic gout October 30 9:16am Hand arthritis October 30, 2025 9 :16am Psoriasis October 30, 2025 9 :16am Reason for Referral Type Reason(s) Provider Provider Contact Information P rovider Address Start Date Inflammation of joint of left knee Arthralgia of multiple joints History of goutM13.162 - Monoarthritis, not elsewhere classified, left knee,M25.50 - Pain in unspecified joint,Z87.39 - Personal history of other diseases of the musculoskeletal system and connective tissueBryson Handy MD[address] [facility] [address]o 2024 Allergies, Adverse Reactions, Alerts Allergen Type Severity Reaction Last Updated Verified Status No Known Allergies Allergy Unknown October 30, 2025 9:29amYesActive Social History Smoking Status Status Start Date End Date Date of Observa tion Never smoked tobacco (finding) October 30, 2025 9:31am Observation Status Observation Response Date of Response Legal Sex Male (finding) Sex Assigned At BirthMaleApril 1954 Problems Active Problems Problem Diagnosis/Recorded Date Onset Date Stat Hand arthritis October 30, 2025 9:58am Unknown Active Multiple joint pain October 09, 2025 9:55am Unknown Active Inflammation of joint of left knee October 09, 2025 9:49am Unknown Active Acute pain of left knee October 08, 2025 1:41pm Unk nown Active Psoriasis October 09, 2025 9:47am Unknown A ctive Chronic idiopathic gout October 30, 2025 9:58am Unkn own Active Hx of gout October 09, 2025 9:55am Unknown A ctive Right shoulder pain October 08, 2025 1:42pm Unknown Active Hypertension October 09, 2025 9:48am Unknown A ctive Arthritis of left knee October 09, 2025 9:45am Unkn own Active Right shoulder tendonitis October 09, 2025 10:07am Unknown Active Medications Medication Status Dose Units Route Directions Qty Days Refills S tart Date Stop Date End Date Reason(s) Instructions Adherence Amlodipine 5 mg tablet Active [facility] 2024 12:00amComplies with drug therapyAllopurinol 100 mg tabletActiveMGPONbanner 2024 12:00amComplies with drug therapyAlbuterol Sulfate 90 mcg/actuation HFA aerosol inhalerActiveINHALATIONBaptist [facility] 2024 12:00amComplies with drug therapyColchicine 0.6 mg tabletDiscontinuedMGPO October 09, 2025 12:00amDecember 2024 9:30amRivaroxaban (Xarelto) 10 mg tabletActiveMGPONoveveterans health administration [facility] [place] 2024 12:00amComplies with drug therapyPrednisone 10 mg iijtbmGhlrgo08DULPFg Copdpmft4684Xmvuhjqy 2024 12:00amtake 30 mg daily for 2 days, 20 mg daily for 2 days, 10 mg daily for 2 daysComplies with drug therapyColchicine 0.6 mg tabletActive0.0MXTEIokfl31127Jpanccue 2024 12:00amComplies with drug therapy Procedures Procedure Date Performed Status XR knee LT 2V October 09, 2025 9:19am compl eted XR shoulder RT min 2V* October 09, 2025 9:19a m completed Aerobic Culture October 09, 2025 completed Anaerobic Culture October 09, 2025 completed Gram Stain October 09, 2025 completed Aerobic Culture October 09, 2025 cancelled Anaerobic Culture October 09, 2025 cancelled Gram Stain October 09, 2025 cancelled Gram Stain October 09, 2025 cancelled Relevant Diagnostic Tests and/or Laboratory Data Laboratory Results Test Collection Date/Time Result Date/Time Result Interpretation Reference Range Result Comment Performing Site Synovial Fluid Color October 09, 2025 9:50am October 09, 2025 12:08pm Yellow Abnormal (applies to non-numeric results) Clrless-Str [facility] [id number] [address] [facility] [address]Gvfpulws Fluid AppearanceOctober 09, 2025 9:50amNovember 2024 12:08pmCloudyAbnormal (applies to non-numeric results)ClearSelect [facility] [id number] [address] [facility] [address]Exfrbfwu Fluid Supernatant ColorOctober 09, 2025 9:50am October 09, 2025 12:08pmYellowThe reference interval and other method performance specifications have not been established for this body fluid. The test result must be integrated into the clinical context for interpretation. [facility] [id number] [address] [facility] [address] [facility] [address]Vhjredgt Fluid RBCOctober 09, 2025 9:50amNove2024 12:34if8640 /uLAbove high normal0-0Body fluid is partially clotted and/or cell clumps or debris are present. Fluid cell count and differential results may not be reliable. Clinical correlation is recommended.[facility] [id number] [address] [facility] [address] [facility] [address]Pgxmockl Fluid Tot Nucleated CellsOctober 09, 2025 9:50am October 09, 2025 12:08be2065 mm^3Above high normal0-150Body fluid is partially clotted and/or cell clumps or debris are present. Fluid cell count and differential results may not be reliable. Clinical correlation is recommended.The reference interval andother method performance specifications have not been established for this body fluid. The test result must be integrated into the clinical context for interpretation.[facility] [id number] [address] [facility] [address]Rcwzvsaj Fluid Lymphocytes %October 09, 2025 9:50amNovemb2024 12:33pm9 %0-74[facility] [id number] [address] [facility] [address] [facility] [address]Bindexlr Fluid NeutrophilsNovember 2024 9:50amNovember 2024 12:33pm70 %Above high normal0-24[facility] [id number] [address] [facility] [address] [facility] [address]Qtwltaje Fld Monocytes/HistiocytesNov2024 9:50am October 09, 2025 12:33pm21 %0-69[facility] [id number] [address] [facility] [address] [facility] [address]Xxysjwvj Fluid EosinophilsNovember 2024 9:50amNovemb2024 12:33pm0 %0-2FPome[facility] [id number] [address] [facility] [address] [facility] [address]Uybtxqzk Fluid CrystalsNov2024 9:50amNovemb2024 11:32amMonosodium urateAbove high normalNone SeenSelect [facility] [id number] [address] [facility] [address]Uvtr Fluid GlucoseNov2024 9:50amNovember 2024 2:36pm76 mg/dL. : BODY FLUID TYPE : GLUCOSE : : : : : Amniotic Fluid : 45 - 76 : : : : : Bile, Clear : < 5 : : : : : Bile, Yellow : < 8 : : : : : Lymph : 48 - 200 : : : : : Nasal Secretion : < 10 : : : : : Pleural Fluid : 65 - 99 : :__ : : : Saliva : < 2 : : (Mixed Glands) : : : : : : Sweat : < 7 : : : : : SynovialFluid : 65 - 99 : : : : : Tears : 76 - 288 : : : : Jayleen Nance V. Reference Intervals for Adults and Children 2007. th edition (V9.1) [facility]; [place]: May 2009.[facility] Fluid Total ProteinNovember 2024 9:50amNovember 2024 2:36pm3.9 g/dL. : BODY FLUID TYPE : TOTAL PROTEIN : : : : : Amniotic Fluid : <0.4 : : : : : :Nonmalignant: <3.0 : : Ascitic Fluid : Malignant: >3.0 : : : : : Bile, Clear : <0.9 : : : : : Bile, Yellow : 0.2 -0.6 : : : : : Lymph : 2.2 - 6.0 : : : : : Human Milk : 1.9 - 2.0 : : : : : Nasal Secretion : 0.1 - 3.5 : : : : : Pancreatic : 0.0 - 0.1 : : Juice : (post stimulation) : : : : : : Transudate: <3.0 : : Pleural Fluid : Exudate: >3.0 : : : : : Saliva : 0.1 - 0.2 : : (Mixed Glands) : : : : : : Synovial Fluid : <2.5 : : : : : Tears : 0.8 - 0.9 : : : :Héctor WJayleen V. Reference Intervals for Adults and Children 2008. Ninth Edition (V9.1) [facility], [facility]; [place]: May 2009.Performed at: [address] [id number] Director: Toni Rutherford PhD, Phone: [phone] Microbiology Results Procedure Source Result Collection Date/Time Result Date/Time Result Comment Performing Site Aerobic Culture Knee,Left, Other No Growth 2 Days Nove mber 2024 9:50am October 11, 2025 12:50pm [facility] [id number] [address] [facility] [address]Hjvtabgec CultureKnee,Left, OtherNo Anaerobes Isolated 3 Days October 09, 2025 9:50amNovember 2024 10:34am[facility] [id number] [address] [facility] [address]Yikd StainKnee,Left, OtherNovember 2024 9:50amNovember 2024 1:41pmBrown [facility] [id number] [address] [place] [address] Diagnostic Imaging Reports Author Jamaal Baker [facility] DaytonAuthoredNovbanner rehabilitation hospital west 2024 1:26pmReport Dictated Date/TimeDictated ByStatusRadiology ReportNov2024 1:26pm Mona MillerMer[facility] Health [facility] [address] [place] [address] XRay Report Signed Patient: Wesly Lu MR#: [id number] : 1955 Acct:[id number] Age/Sex: 70 / M ADM Date: 5 Loc: [facility] Room: Type: [facility] Attending Dr: Ry John MD Copies to: Ry John MD~ Ordering Provider: Ry John MD Date of Service: 10/09/25 XR/XR knee LT 2V: M25.562 - Pain in left knee ([id number]) XR/XR shoulder RT min 2V*: M25.511 - Pain in right shoulder History: Left knee pain for one month. Generalized right shoulder pain for months. 4 views right shoulder. Adequate alignment without acute displaced fracture. Acromioclavicular spurring. Adequate glenohumeral joint. 2 views left knee. Small joint effusion. Adequate bony alignment without acute displaced fracture. Mild medial joint space narrowing. XR/XR shoulder RT min 2V* IMPRESSION: Mild right shoulder and left knee degeneration. Impression dictated by: Jamaal Baker M.D. 10/09/2025 1:27 PM Dictation Location: [place] [address] Transcribed By: [facility] 10/09/25 1327 Dictated By: Jamaal Baker DO 10/09/25 1326 Signed By: <Electronically signed by Jamaal Baker DO in OV> 10/09/25 1327 Vital Signs Vital Reading Result Reference Range Collection Date/Time Height 72 [in_i] October 30, 2025 9:56bbQalcpt46.45 kgDecember 2024 9:31amBody Temperature 98.5 [degF]97.6-99.0December 2024 9:31amHeart Rate86 /aol65-854Kvvflesv 2024 9:31amRespiratory rate16 /pdb58-31Mcvzrivn 2024 9:31amOxygen saturation by Pulse ksneyvos85 %95-1002024 9:31amBP Htpxgsyy718 mm[Hg]100-140Deflagstaff [facility] 2024 9:31amBP Oaekilcko59 mm[Hg]60-100Deceer 2024 9:31amBMI (Body Mass Index)26.4 kg/q6Kbivtmrl 2024 9:31am Advance Directives Advance Directive Response Recorded Date/ Time Advance Directives No September 8:50am Insurance Providers Guarantor Wesly Lu Address [address] [address]Gvmsqty Info.Home Phone: Coverage Status Update:2025 Payer Group Member ID Coverage Type Subscriber Relationship to Subscriber Effective Date Expiration Date Medicare [id number] W Wu[place]z Id: [id number] [address] [place] [phone] Home Phone: Email: [email or web address] [facility] [address] [address] [place] [address] Work Phone: Id: Ban [id number] W Wuertz Id: [id number] [address] [address] Home Phone: Email: [email or web address] Encounters Encounter Location(s) Arrival/Admit Date Discharge/Departure Date Discharge/Departure Disposition Provider(s) Departed Physician/ Provider Office Visit -[facility] October 09, 2025 9:15am October 09, 2025 9:59am Discharged to home care or self care (routine discharge) Ry John MD Departed Clinical -Neeta Blunt October 09, 2025 9:19am October 09, 2025 9:20am Discharged to home care or self care (routine discharge) Ry John MD Departed Physician/ Provider Office Visit -[facility] October 22, 2025 9:31am October 22, 2025 9:55am Discharged to home care or self care (routine discharge) Ry John MD Departed Physician/ Provider Office Visit -[facility] October 30, 2025 9:16am October 30, 2025 10:03am Discharged to home care or self care (routine discharge) Bryson Handy MD Recent Diagnosis Onset Date Admit Date Arthritis of left knee Unknown October 09, 2025 9:15am Hx of gout Unknown October 09, 2 025 9:15am Inflammation of joint of left knee Unknown October 09, 2025 9:15am Multiple joint pain Unknown September 9:15am Right shoulder tendonitis Unknown Novem er 2024 9:15am Arthritis of left knee Unknown October 22, 2025 9:31am Hx of gout Unknown October 22 9:31am Inflammation of joint of left knee Unknown October 22, 2025 9:31am Multiple joint pain Unknown October 9:31am Right shoulder tendonitis Unknown Dece er 2024 9:31am Chronic idiopathic gout Unknown October 30, 2025 9:16am Hand arthritis Unknown October 30 9:16am Psoriasis Unknown October 30 9:16am Assessments Diagnosis Onset Date Resolution Status Admit Date Arthritis of left knee acuteNovember 2024 9:15amHx of goutacuteNovember 2024 9:15am Inflammation of joint of left kneeacuteNovember 2024 9:15amMultiple joint painacuteNovember 2024 9:15amRight shoulder tendonitisacuteNovember 2024 9:15amArthritis of left kneeacuteDecember 2024 9:31amHx of goutacute October 22, 2025 9:31amInflammation of joint of left kneeacuteDecember 2024 9:31amMultiple joint painacuteDecember 2024 9:31amRight shoulder tendonitisacuteDecember 2024 9:31amChronic idiopathic goutacuteDecember 2024 9:16amHand arthritisacuteDecember 2024 9:16amPsoriasisacute October 30, 2025 9:16am Plan of Treatment Author Fiorella Fong [facility] 2024 10:09amRadiographs reviewed in detail with patient. Extensive discussion about current condition and treatment options available. Patient was prepped and knee was aspirated of approx 22 mls of normal appearing joint fluid with visible fragments of articular cartilage. Knee was then injected with 1cc kenalog/2 cc marcaine under sterile conditions. Patient tolerated well with no adverse reactions. Fluid will be sent for synovial fluid panel. Sent referral to rheumatology for further evaluation of multiple joint pain. Radiographs reviewed in detail with patient. This appears to be pain secondary to subacromial bursitis / rotator cuff tendonitis. We discussed and demonstrated gentle motion exercise and rotator cuff strengthening exercise. Discussed the use of non-steroidal anti- inflammatory medication. As patient has minimal pain at this time, will continue to monitor. Author Fani Sams [facility] 2024 9:43amPatient is progressing well from the aspiration and cortisone injection. We discussed the conservative treatment options which can be beneficial in relieving pain, including gentle non-impact motion exercise and non-steroidal anti-inflammatory medication. Note scribed by AG Boss, reviewed and amended by Ry John M.D. Future Tests Future scheduled test information is unavailable Pending Tests Test Name Ordered Date Scheduled Date Cyclic Citrulliated Pep Ab October 30, 2025 9: 50am XR hand BI 2VDecember 2024 9:55amRheumatoid FactorDecember 2024 9:50am Future Visits Future appointment information is unavailable Future Procedures Procedure Name Ordered Date Scheduled Date Uric Acid October 30, 2025 9:50am Future Medications Future medication information is unavailable Patient Instructions Patient instructions are unavailable
--- OUTSIDE RECORDS SUMMARY | 2025-10-30 10:50 | XMS_ITS | CCD ---
Author Organization [facility] Care Team Providers Care Court Recorder Name Role Phone TAVIA OH Attending Unavailable ALGHOTHANI, MOHAMAD Consulting Unavailable MISC, DR NARANJO Primary Care Unavailable ALGHOTHANI, MOHAMAVidal Attending Unavailable ALGHOTHANI, MOHAMAD Admitting Unavailable ALGHOTHANI, [...] MOHAMAD Attending Unavailable ALGHOTHANI, MOHAMAD Admitting Unavailable JOSE MIGUEL, CORINNE C Referring Unavailable RUMSCHLAG, KWAME K Primary Care Unavailable RUMSCHLAG, KWAME K Referring Unavailable RUMSCHLAG, KWAME K Primary Care Unavailable JOSE MIGUEL, CORINNE C Referring Unavailable RUMSCHLAG, KWAME K Primary Care Unavailable Corinne Garcia MD Primary Care Provider JALEN AMEZCUA Attending Unavailable JALEN AMEZCUA Attending Unavailable JALEN AMEZCUA Attending Unavailable JALEN AMEZCUA Attending Unavailable JALEN AMEZCUA Attending Unavailable DAKSHA CORONA Attending Unavailable JOSE MIGUEL, CORINNE C Referring Unavailable JOSE MIGUEL, CORINNE C Primary Care Unavailable Allergies Allergy ClassificationReported Allergen(s)Allergy TypeDate of OnsetReaction(s) Facility (4 sources)Acetaminophen; Translations: [ACETAMINOPHEN]Drug Nmbbnal13-86-7708Hkb [facility] Repository (4 sources)AcetaminophenDrug Ncnxpao97-15-0985Bqtvc (See Comments)Raidarrr (1 source)Losartan; Translations: [LOSARTAN]Drug Xkbuuvt68-01-9343RhwctmbngyWay[facility] Medications Current Medications MedicationDrug Class(es)DatesSig (Normalized)Sig (Original)acetaminophen 500 mg oral tablet (1 source)take 1 tablet by mouth every six hours as neededacetaminophen (TYLENOL EXTRA STRENGTH) 500 mg tablet Take 1 tablet (500 mg total) by mouth every 6 ( six) hours as needed. [id number] 200 actuat albuterol 0.09 mg/actuat metered dose inhaler (1 source)beta2-Adrenergic Agonisttake 1 puff(s) by mouth every four hours as neededalbuterol (PROVENTIL HFA;VENTOLIN HFA) 90 mcg/actuation inhaler INHALE 1 PUFF BY MOUTH EVERY 4 HOURS NEEDED Activeallopurinol 100 mg oral tablet (1 source)Xanthine Oxidase InhibitorStart: 21-48-3723wnlc 1 tablet by mouth once dailyallopurinoL (ZYLOPRIM) 100 mg tablet TAKE 1 TABLET BY MOUTH ONCE DAILY; Duration: 30 08/02/2025 ActiveamLODIPine 5 mg oral tablet (1 source)Dihydropyridine Calcium Channel BlockerStart: 07-26-2025 End: 91-31-6509qdfx 1 tablet by mouth in the morningamLODIPine (NORVASC) 5 mg tablet Take 1 tablet (5 mg total) by mouth in the morning. 07/26/2025 07/26/2026 Activeapixaban 5 mg oral tablet (4 sources)Factor Xa Inhibitortake 1 tablet by mouth in the morning, then take 1 tablet by mouth at bedtimeapixaban (ELIQUIS) 5 mg tablet Take 1 tablet (5 mg total) by mouth in the morning and 1 tablet (5 mg total) before bedtime. Active colchicine 0.6 mg oral tablet (1 source)colchicine (COLCRYS) 0.6 mg tablet ON DAY 1 TAKE 2 TABLETS BY MOUTH THEN 1 TABLET 1 HOUR LATER. ON DAYS 2-4 TAKE 1 TABLET BY MOUTH TWICE DAILY Activefurosemide 20 mg oral tablet (4 sources)Loop DiureticStart: 90-53-1062stwg 1 tablet by mouth once daily furosemide (LASIX) 20 mg tablet Take 1 tablet (20 mg total) by mouth daily. 07/30/2022 Activeibuprofen 800 mg oral tablet (4 sources)Nonsteroidal Anti-inflammatory DrugStart: 19-02-3665noca 1 tablet by mouth three times daily as needed for painibuprofen (ADVIL,MOTRIN) 800 mg tablet Take 1 tablet (800 mg total) by mouth 3 (three) times a day as needed for pain for up to 30 doses. 30 tablet 01/10/2018 Cyopnf03 hr metoprolol succinate 100 mg extended release oral tablet (4 sources)beta-Adrenergic BlockerStart: 91-38-9356wdki 1 tablet by mouth every twenty-four hours in the morningmetoprolol succinate XL (TOPROL XL) 100 mg 24 hr tablet Take 1 tablet (100 mg total) by mouth in the morning. 09/09/2022 Active naproxen 500 mg delayed release oral tablet (1 source)Nonsteroidal Anti-inflammatory DrugStart: 28-63-4475rben 1 tablet by mouth every twelve hours as needednaproxen (EC NAPROSYN) 500 mg EC tablet 1 tablet as needed with meal Orally every 12 hrs for 5 days05/04/2025 Active sacubitril 24 mg / valsartan 26 mg oral tablet (4 sources)Angiotensin 2 Receptor BlockerStart: 59-96-9510xhis 1 tablet by mouth twice daily at bedtimeENTRESTO 24-26 mg tablet TAKE 1 TABLET BY MOUTH TWICE DAILY (IN THE MORNING & AT BEDTIME) 08/07/2022 Activesod sulf-pot chloride-mag sulf 1.479-0.188- 0.225 gram tablet (8 sources)Start: 17-44-2261lcu sulf-pot chloride-mag sulf 1.479-0.188- 0.225 gram tablet See instructional sheet given by office. Patient was given a [employer] coupon voucher to use, this is not to be ran through patients insurance. 24 tablet 09/28/2022 Active Problems Active Problems Problem ClassificationProblemDateDocumented DateEpisodic/ChronicCardiac dysrhythmias (16 sources)Paroxysmal atrial fibrillation; Translations: [Unspecified atrial fibrillation]Onset: 26-78-0924TjtnnkbDmtkyjbwji heart failure; nonhypertensive (13 sources)Chronic systolic (congestive) heart failure; Translations: [Acute systolic (congestive) heart failure]Onset: 60-20-4651PpubfezDkcpcszye of lipid metabolism (2 sources)Hyperlipidemia; Translations: [Hyperlipidemia]Onset: 09-11-2025 ChronicDiverticulosis and diverticulitis (1 source)Diverticulosis of large intestine without perforation or abscess without bleeding; Translations: [DVRTCLOS LG INT NO PERF/ABSC W/O BL]Onset: 24-04-1254IrproqlWviibyqut hypertension (9 sources)Essential (primary) hypertension; Translations: [Hypertensive disorder]Onset: 23-36-6214BcufzvlZejaf valve disorders (1 source)Rheumatic disorders of both mitral and tricuspid valves; Translations: [RHEUMATIC D/O MITRAL TRICUSPID VALV]Onset: 66-23-3238QfmzpjsFavsnzptxvbt with complications and secondary hypertension (2 sources)Hypertensive heart disease with heart failure; Translations: [Hypertensive heart disease with heartfailure]Onset: 62-90-3119QgkinhwUifya circulatory disease (1 source)Other specified symptoms and signs involving the circulatory and respiratory systems; Translations:[OTH SPEC SX SIGNS INVLV CIRC RS]Onset: 40-31-7644YzolgwmpCgnwe connective tissue disease (1 source)Other specified soft tissue disorders; Translations: [Other specified soft tissue disorders]Onset: 70-62-8853OeehsdsaGocor inflammatory condition of skin (4 sources)Psoriasis; Translations: [Psoriasis, unspecified]Onset: 09-28-2022 00-17-8088PfkaqsmWwycn lower respiratory disease (1 source)Chronic cough; Translations: [Chronic cough]Onset: 87-45-1716Gbedscgn Other lower respiratory disease (1 source)Dyspnea on exertion; Translations: [Other forms of dyspnea]07-27-2025 EpisodicOther lower respiratory disease (3 sources)Shortness of breath; Translations: [Shortness of breath]Onset: 03-48-0857OyursbzhPelze lower respiratory disease (1 source)Dyspnea; Translations: [Shortness of breath]34-87-2302QifjwvxeQaxmg lower respiratory disease (1 source)Nodule of lung; Translations: [Solitary pulmonary nodule]09-24-2025 EpisodicOther lower respiratory disease (1 source)Solitary pulmonary nodule; Translations: [Solitary pulmonary nodule] Onset: 40-62-8728JkgblqjwThzuy nutritional; endocrine; and metabolic disorders (1 source)Obesity, unspecified; Translations: [OBESITY UNSPECIFIED]Onset: 34-64-7813KbpnfnwTudvc nutritional; endocrine; and metabolic disorders (1 source)Body mass index (BMI) 31.0-31.9, adult; Translations: [BODY MASS INDEX BMI 31.0-31.9 ADULT]Onset: 13-34-8880ZjaftsfMsfnt upper respiratory disease (1 source)Bronchospasm; Translations: [Acute bronchospasm]24-07-1201Kjcsqfay Other upper respiratory disease (1 source)Acute bronchospasm; Translations: [Acute bronchospasm]Onset: 61-24-5471BsivtyxqEgas-; endo-; and myocarditis; cardiomyopathy (except that caused by tuberculosis or sexually transmitted disease) (4 sources)Cardiomyopathy; Translations: [Other cardiomyopathies]Onset: 67-18-3165HnawcedOonybtii codes; unclassified (2 sources)Edema; Translations: [Edema]Onset: 60-19-5028RuzhiliiUpcbjfugb and history of mental health and substance abuse codes (3 sources)Personal history of nicotine dependence; Translations: [Tobacco use and exposure - finding]Onset: 970317-98-5082ZjcophicFllmejwfwsrs (1 source)CONTACT W/AND (SUSP) EXPOS COVID-19; Translations: [CONTACT W/AND (SUSP) EXPOS COVID-19]Onset: 71-83-7874Vvikrgedajwj (1 source)New PatientOnset: 09-24-2025 Past or Other Problems Problem ClassificationProblemDateDocumented DateEpisodic/ChronicOther aftercare (1 source)care home (current) use of anticoagulants; Translations: [COMMISSIONING AGENT CURRNT USE ANTICOAGULANTS]Onset: 09-36-0336NqqrvgbbKmqtf and unspecified benign neoplasm (1 source)Benign neoplasm of sigmoid colon; Translations: [BENIGN NEOPLASM OF SIGMOID COLON]Onset: 83-90-1080PnxswtawUogkc and unspecified benign neoplasm (1 source)Benign lipomatous neoplasm of other sites; Translations: [JOSE LUIS LIPOMATOUS NEOPLASM OTH SITES]Onset: 36-26-8932MlgvopeeVrwmi gastrointestinal disorders (4 sources)Diarrhea, unspecified; Translations: [DIARRHEA UNSPECIFIED]Onset: 03-92-9147MbrnihmcEzqdj lower respiratory disease (2 sources)Wheezing; Translations: [Wheezing]Onset: 75-45-8651UvvxiacnFnjrm non- traumatic joint disorders (1 source)Pain in left knee; Translations: [PAIN IN LEFT KNEE]Onset: 05-19-2022 EpisodicOther non-traumatic joint disorders (1 source)Effusion, left knee; Translations: [EFFUSION LEFT KNEE]Onset: 03-54-2306CrosxczsRbhgrffa codes; unclassified (1 source)Family history of malignant neoplasm of digestive organs; Translations: [FAM HX MALIG NEOPLASM DIGESTIV ORGN]Onset: 65-62-3050Pqzoxibv Residual codes; unclassified (2 sources)Other specified postprocedural states; Translations: [Other specified postprocedural states]Onset: 38-62-9301Mpzhxhlg Results Test NameValueInterpretationReference RangeFacilityOffice Visiton 09-11-2025 Follow-up [id number] Garry Lu 1955 M Date Provider Department Center 09/11/2025 JALEN CROWE Hos Family History Problem Relation Age of Onset Cancer Father Colon cancer Brother Family Status - Relation Status Age at Mother Father Sister Brother Level of Service:48270 DE OFFICE/OUTPATIENT ESTABLISHED MOD MDM 30 MIN Reason for Visit and Comments: Follow-up [383186] - 6 week follow up appointment. Patient had a recent flare up gout and was given allopurinol and colchicine. Patient states he had in both feet. Patient states if he has pain for the gout he has been taking aleve. 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 Patient denies chest pain, sob/drake, fatigue. Patient complains of occasional dizziness/lightheaded with position changes. Patient is no longer on Eliquis or Xarelto patient stopped on his own due to it not mixing well with alco Congestive Heart Failure [127] Atrial Fibrillation [80] Hypertension [700290] Cardiomyopathy [104] - Non ischemic Hyperlipidemia [182] Atrial Flutter [101] Edema [[id number]] - Due to the gout.[facility] Office Visiton 60-09-7047Yrspoe-up [id number] Garry Lu 1955 M Date Provider Department Center 07/26/2025 Elena-JALEN AMEZCUA TIM [facility] Family History Problem Relation Age of Onset Cancer Father Colon cancer Brother Family Status - Relation Status Age at Mother Father Sister Brother Level of Service:80168 DE OFFICE/OUTPATIENT ESTABLISHED MOD MDM 30 MIN Reason for Visit and Comments: Congestive Heart Failure [127] Atrial Fibrillation [80] Hypertension [637940] Nonischemic cardiomyopathy [Other] Typical atrial flutter [Other] Hyperlipidemia [182] 3 month follow up [Other] - With recent EchoNormalUniversity [facility] WITH AUTO DIFFERENTIALon 90-40-6875QAVYPUBBT ABSOLUTE COUNT (10*3/UL) BY AUTOMATED COUNT0.1 10*3/uLNormal0.0-0.2Pro[facility] Medical CenterComment on above:Performed By: #### CBCA #### [facility] ([facility]) [address] [place] [address] VIRBASOPHILS RELATIVE PERCENT BY AUTOMATED COUNT0.8 %Normal [facility] Alliance Medical CenterComment on above:Performed By: #### CBCA #### [facility] ([facility]) [address] [place] [address] VIRCELLAVISION DIFFERENTIAL TYPEAUTOMATED DIFFERENTIALNormal [facility] AkronComment on above:Performed By: #### CBCA #### [facility] ([facility]) [address] [place] [address] VIREosinophils (Bld) [#/Vol]0.4 10*3/uLNormal0.0-0.4[facility]ronCome[facility] on above:Performed By: #### CBCA #### [facility] ([facility]) [address] [place] [address] VIREOSINOPHILS RELATIVE PERCENT BY AUTOMATED COUNT6.4 %Normal [facility] on above:Performed By: #### CBCA #### [facility] ([facility]) [address] [place] [address] VIRErythrocyte distribution width (RBC) [Ratio]13.4 %Normal 11.5-15Pro[facility] HospitalCome[facility] on above:Performed By: #### CBCA #### [facility] ([facility]) [address] [place] [address] VIRHematocrit (Bld) [Volume fraction]39.7 %Xdxovl51-58HyyYmucwsUt Southwestern [facility] University HospitalComment on above:Performed By: #### CBCA #### [facility] ([facility]) [address] [place] [address] VIRHemoglobin (Bld) [Mass/Vol]13.8 g/lJCrznph84-21XjgRpyrltUt [facility] HospitalCome[facility] on above:Performed By: #### CBCA #### [facility] ([facility]) [address] [place] [address] VIRLYMPHOCYTES ABSOLUTE COUNT (10*3/UL) BY AUTOMATED COUNT1.3 10*3/uLNormal1.0-3.5Pro[facility]common HospitalComment on above:Performed By: #### CBCA #### [facility] ([facility]) [address] [place] [address] VIRLYMPHOCYTES RELATIVE PERCENT BY AUTOMATED COUNT18.6 %Normal [facility] - AkronComment on above:Performed By: #### CBCA #### [facility] ([facility]) [address] [place] [address] VIRMCH (RBC) [Entitic mass]33.0 ibZqivmh16-17WziNcpzhwUt South[facility] University HospitalComment on above:Performed By: #### CBCA #### [facility] ([facility]) [address] [place] [address] VIRMCHC (RBC) [Mass/Vol]34.7 g/mGOmsvzf88-10PfdTmevusUt Southwestern [facility] University HospitalComment on above:Performed By: #### CBCA #### [facility] ([facility]) [address] [place] [address] VIRMCV (RBC) [Entitic vol]95 bSRblgax48-445JboYezqxu [facility]ont HospitalComment on above:Performed By: #### CBCA #### [facility] ([facility]) [address] [place] [address] VIRMONOCYTES ABSOLUTE COUNT (10*3/UL) BY AUTOMATED COUNT0.5 10*3/uLNormal0.0-0.9[facility]Come[facility] on above:Performed By: #### CBCA #### [facility] ([facility]) [address] [place] [address] VIRMONOCYTES RELATIVE PERCENT BY AUTOMATED COUNT7.2 %Normal [facility] on above:Performed By: #### CBCA #### [facility] ([facility]) [address] [place] [address] VIRNEUTROPHILS ABSOLUTE COUNT BY AUTOMATED COUNT4.7 10*3/uL Normal1.5-6.6Pro[facility] Daytonca [facility] HospitalComment on above:Performed By: #### CBCA #### [facility] ([facility]) [address] [place] [address] VIRNEUTROPHILS RELATIVE PERCENT BY AUTOMATED COUNT67.0 %Normal [facility] - AkronComment on above:Performed By: #### CBCA #### [facility] ([facility]) [address] [place] [address] VIRPlatelet mean volume (Bld) [Entitic vol]8.5 fLNormal7-12 [facility] - AkronComment on above:Performed By: #### CBCA #### [facility] ([facility]) [address] [place] [address] VIRPlatelets (Bld) [#/Vol]168 10*3/dPZbeleo279-694PzbTwswtc [facility] HospitalComment on above:Performed By: #### CBCA #### [facility] ([facility]) [address] [place] [address] VIRRBC COUNT4.17 X10E12/LNormal4.1-5.7[facility] - AkronComment on above:Performed By: #### CBCA #### [facility] ([facility]) [address] [place] [address] VIRWBC (Bld) [#/Vol]6.9 10*3/uLNormal4-11[facility] - AkronComment on above:Performed By: #### CBCA #### [facility] ([facility]) [address] [place] [address] VIRCOMPREHENSIVE METABOLIC PANELon 74-83-9923Ybycdpp [Mass/Vol] 4.2 g/dLNormal3.2-5.3PMercy Health Lorain HospitalComment on above:Performed By: #### CMP #### [facility] ([facility]) [address] [place] [address] VIRALP [Catalytic activity/Vol]78 U/JMhrqzf62-352AfmHnrrexUt [facility] HospitalComment on above:Performed By: #### CMP #### [facility] ([facility]) [address] [place] [address] VIRALT [Catalytic activity/Vol]13 U/LNormal<=40Pro[facility] HospitalComment on above:Performed By: #### CMP #### [facility] ([facility]) [address] [place] [address] VIRAnion gap [Moles/Vol]11 mmol/LNormal5-15Pro[facility] HospitalComment on above:Performed By: #### CMP #### [facility] ([facility]) [address] [place] [address] VIRAST [Catalytic activity/Vol]16 U/LNormal<=41Pro[facility] HospitalComment on above:Performed By: #### CMP #### [facility] ([facility]) [address] [place] [address] VIRBilirubin [Mass/Vol]0.9 mg/dLNormal0.3-1.2PMercy Health Lorain HospitalComment on above:Performed By: #### CMP #### [facility] ([facility]) [address] [place] [address] VIRCalcium [Mass/Vol]9.3 mg/dLNormal8.5-10.5PMercy Health Lorain HospitalComment on above:Performed By: #### CMP #### [facility] ([facility]) [address] [place] [address] VIRChloride [Moles/Vol]105 mmol/OWlryqu51-726MtiDedeyyUt [facility] HospitalComment on above:Performed By: #### CMP #### [facility] ([facility]) [address] [place] [address] VIRCO2 [Moles/Vol]26 mmol/UYmpnon58-65GbuUmuhpbMercy Health Lorain HospitalComment on above:Performed By: #### CMP #### [facility] ([facility]) [address] [place] [address] VIRCreatinine [Mass/Vol]0.91 mg/dLNormal0.60-1.30Pro[facility] HospitalComment on above:Result Comment: METHOD TRACEABLE TO IDMS STANDARDPerformed By: #### CMP #### [facility] ([facility]) [address] [place] [address] VIRGFR/1.73 sq M.predicted among non-blacks MDRD (S/P/Bld) [Vol rate/Area]90 mL/min/{1.73_m2}Normal>=60Pro[facility] HospitalComment on above:Result Comment: Reported eGFR is based on the CKD-EPI 2020 equation that does not use a race coefficient.Performed By: #### CMP #### [facility] ([facility]) [address] [place] [address] VIRGlucose [Mass/Vol]127 mg/xEPxii00-65WojPakwtnUt [facility] HospitalComment on above:Performed By: #### CMP #### [facility] ([facility]) [address] [place] [address] VIRPotassium [Moles/Vol]4.0 mmol/LNormal3.5-5.0[facility] - AkronComment on above:Performed By: #### CMP #### [facility] ([facility]) [address] [place] [address] VIRProtein [Mass/Vol]7.3 g/dLNormal6.0-8.0[facility] HospitalComment on above:Performed By: #### CMP #### [facility] ([facility]) [address] [place] [address] VIRSodium [Moles/Vol]142 mmol/FFlhliz442-808SsvHznszj [facility] HospitalComment on above:Performed By: #### CMP #### [facility] ([facility]) [address] [place] [address] VIRUrea nitrogen [Mass/Vol]15 mg/dLNormal5-27Pro[facility] HospitalComment on above:Performed By: #### CMP #### [facility] ([facility]) [address] [place] [address] VIRLIPID PROFILEon 65-14-8402Vizuscnfzcb [Mass/Vol]148 mg/dLLow 150-200Pro[facility] HospitalComment on above:Performed By: #### LIPR #### [facility] ([facility]) [address] [place] [address] VIRCholesterol in HDL [Mass/Vol]35 mg/dLLow>39Pro[facility] HospitalComment on above:Result Comment: HDL <40 mg/dL - High Risk HDL > or = 40mg/dL- Desirable HDL >60 mg/dL - Negative RiskPerformed By: #### LIPR #### [facility] ([facility]) [address] [place] [address] VIRCholesterol in LDL [Mass/Vol]93 mg/dLNormal<130Pro[facility] HospitalComment on above:Result Comment: LDL <100 mg/dL - Desirable LDL >160 mg/dL - High RiskPerformed By: #### LIPR #### [facility] ([facility]) [address] [place] [address] VIRCHOLESTEROL:HDL4.8Rhdtla5.0-5.0[facility] Comment on above:Performed By: #### LIPR #### [facility] ([facility]) [address] [place] [address] VIRTriglyceride [Mass/Vol]101 mg/mZPhglzl23-742NgaXltlhn [facility] HospitalComment on above:Performed By: #### LIPR #### [facility] ([facility]) [address] [place] [address] VIRVERY LOW PYOQYUDKEQG62 mg/dLNormal0-30[facility] Medical CenterComment on above:Performed By: #### LIPR #### [facility] ([facility]) [address] [place] [address] [id number] *you can try to take some mucinex (Guaifenesin) without the D (no decongestant) along with flonase over the counter to see if this can help with some of your phlegm.NormalUnNationwide Children's HospitalOffice Visiton 81-97-7423Stqrjo- up [id number] AlyGarry Marques 1955 M Date Provider Department Center 04/05/2025 JALEN CROWE Family History Problem Relation Age of Onset Cancer Father Colon cancer Brother Family Status - Relation Status Age at Mother Father Sister Brother Level of Service:89686 DE OFFICE/OUTPATIENT ESTABLISHED LOW [facility] 20 MIN Reason for Visit and Comments: Hypertension [834159]NormalUnNationwide Children[facility] HospitalOrders Onlyon [id number] [id number] AlyGarry Shelli 1955 Date Provider Department Center 04/05/2025 MONICA BARRIENTOS Family History Problem Relation Age of Onset Cancer Father Colon cancer Brother Family Status - Relation Status Age at Mother Father Sister Brother DeceasedNormalUniTrinity Health System [facility] Campus36 Regarding PFT results from 03/16/2025: RACHANA Marcial MA PFTs are abnormal. Please send results to his PCP and ask pt to follow-up with them if he has not already. Thanks! LM letting him know I will fax results to his PCP and he should follow up with them. Asked him to call me with questions.NormalUnNationwide Children's HospitalOffice Visiton [id number]-up [id number] Garry Lu 1955 M Date Provider Department Center 03/06/2025 JALEN CROWE Family History Problem Relation Age of Onset Cancer Father Colon cancer Brother Family Status - Relation Status Age at Mother Father Sister Brother Level of Service:79809 DE OFFICE/OUTPATIENT ESTABLISHED MOD MDM 30 MIN Reason for Visit and Comments: Hypertension [360947] Atrial Fibrillation [80] Cardiomyopathy [104]NormalWayne HealthCare Main CampusOffice Visiton [id number]-up [id number] Garry Lu 1955 M Date Provider Department Center 02/06/2025 JALEN CROWE [facility] Family History Problem Relation Age of Onset Colon cancer Brother Family Status - Relation Status Age at Brother Level of Service:39305 DE OFFICE/OUTPATIENT ESTABLISHED MOD MDM 30 MIN Reason for Visit and Comments: Atrial Fibrillation [80] Hypertension [497450] Congestive Heart Failure [127]NormalWayne HealthCare Main Campus ECHOCARDIO M/2D COMPLETEon 59-72-5271NYHASKJHQA M/2D COMPLETEPatient: GARRY LU. Exam Date: 03/01/2023 : 1955 Gender:M Ordering : SARAH RAMIREZ Admission #: [id number] Family : WARREN JOYNER SAP TECHNICAL ARCHITECT-C Order #: [id number] CLICK HERE TO VIEW EXAM ECHOCARDIOGRAM REPORT [...] by: Justen Baumann M.D. on 03/01/2023 at 09:21Marymount HospitalBNPon 41-98-5313Ifigwjpnyva peptide B (Bld) [Mass/Vol]20.0 pg/mLNormal <=900.0The [facility] CenterComment on above:Performed By: #### BNP, MG, CMP #### [facility] [address] [place] [address] Dr. Miah VelozHEMOGRAM AND PLATELon 25-63-6432Uiwsqefvdb (Bld) [Volume fraction]41.3 %Critically low42.0-54.0The [facility] CenterComment on above: Performed By: #### BNP, CMP, HSTROPN #### [facility] [address] [place] [address] Dr. Miah VelozHemoglobin (Bld) [Mass/Vol]14.2 g/yWVghtkb62.0-18.0The [facility] CenterComment on above:Performed By: #### BNP, CMP, HSTROPN #### [facility] [address] [place] [address] Dr. Miah Roe (RBC) [Entitic mass]31.5 ibEkkxsq36.9-34.0The [facility] CenterComment on above:Performed By: #### BNP, CMP, HSTROPN #### [facility] [address] [place] [address] Dr. Miah Roe (RBC) [Mass/Vol]34.4 g/wMLsnuva87.9-35.2The [facility] HospitalComment on above:Performed By: #### BNP, CMP, HSTROPN #### [facility] [address] [place] [address] Dr. Miah RoeV (RBC) [Entitic vol]91.6 mSLdinuc65.0-94.0The [facility] CenterComment on above:Performed By: #### BNP, CMP, HSTROPN #### [facility] [address] [place] [address] Dr. Miah VelozPLT173 103/lvPsiksg351-059Ygc [facility] CenterComment on above: Performed By: #### BNP, CMP, HSTROPN #### [facility] [address] [place] [address] Dr. Miah VelozRBC4.51 106/ulCritically low4.70-6.10The [facility] Campusment on above:Performed By: #### BNP, CMP, HSTROPN #### [facility] [address] [place] [address] Dr. Miah VelozWBC5.8 103/ulNormal4.0-11.0The [facility] CenterComment on above: Performed By: #### BNP, CMP, HSTROPN #### [facility] [address] [place] [address] Dr. Miah VelozMAGNESIUMon 61-14-4998Jfsxdsuim [Mass/Vol]1.9 mg/dLNormal1.8-2.4 The [facility] CenterComment on above:Performed By: #### BNP, MG, CMP #### [facility] [address] [place] [address] Dr. Miah VelozPROF 14(COMP METB)on 92-77-2971Hrhhlpq [Mass/Vol]3.8 g/dLNormal 3.4-5.0The [facility] CenterComment on above:Performed By: #### BNP, MG, CMP #### [facility] [address] [place] [address] Dr. Miah VelozAlbumin/Globulin [Mass ratio]0.9 {ratio}NormalThe [facility] CenterComment on above:Performed By: #### BNP, MG, CMP #### [facility] [address] [address] [address] Miah Meier [Catalytic activity/Vol]86 U/QXbrscu93-351Crs [facility] CenterComment on above:Performed By: #### BNP, MG, CMP #### [facility] [address] [address] [address] Miah Fontenot [Catalytic activity/Vol]26 U/JBexjxr31-76Ezq [facility] CenterComment on above:Performed By: #### BNP, MG, CMP #### [facility] [address] [address] [address] Miah Tripletton gap [Moles/Vol]11.3 mmol/LNormalThe [facility] Comment on above:Performed By: #### BNP, MG, CMP #### [facility] [address] [address] [address] Miah VelozAST [Catalytic activity/Vol]18 U/YMrpqee44-59Ior [facility] CenterComment on above:Performed By: #### BNP, MG, CMP #### [facility] [address] [address] [address] Miah VelozBilirubin [Mass/Vol]0.6 mg/dLNormal0.2-1.0The [facility] Comment on above:Performed By: #### BNP, MG, CMP #### [facility] [address] [address] [address] Miah VelozCalcium [Mass/Vol]9.4 mg/dLNormal8.5-10.1The [facility] Comment on above:Performed By: #### BNP, MG, CMP #### [facility] [address] [address] [address] Miah VelozChloride [Moles/Vol]105 mmol/QIisdmw05-721Mhf [facility] Comment on above:Performed By: #### BNP, MG, CMP #### [facility] [address] [address] [address] Miah VelozCO2 [Moles/Vol]30.2 mmol/MWgjkol50.0-32.0The [facility] Comment on above:Performed By: #### BNP, MG, CMP #### [facility] [address] [place] [address] Dr. Miah VelozCreatinine [Mass/Vol]0.88 mg/dLNormal0.70-1.30The [facility] CenterComment on above:Performed By: #### BNP, MG, CMP #### [facility] [address] [place] [address] Dr. Miah RosalesGFR-AF SWEDISH>60Normal>=60The [facility] CenterComment on above:Performed By: #### BNP, MG, CMP #### [facility] [address] [place] [address] Dr. Miah RosalesGFR-NON AF SWEDISH>60Normal>=60The [facility] CenterComment on above:Performed By: #### BNP, MG, CMP #### [facility] [address] [place] [address] Dr. Miah VelozGlobulin (S) [Mass/Vol]4.1 g/dLNormalThe [facility] CenterComment on above:Performed By: #### BNP, MG, CMP #### [facility] [address] [place] [address] Dr. Maih VelozGlucose [Mass/Vol]98 mg/qPQxkjnw87-822RuhKindred Hospital Lima Comment on above:Performed By: #### BNP, MG, CMP #### [facility] [address] [place] [address] Dr. Miah VelozPotassium [Moles/Vol]4.5 mmol/LNormal3.5-5.1The [facility] Comment on above:Performed By: #### BNP, MG, CMP #### [facility] [address] [place] [address] Dr. Miah VelozProtein [Mass/Vol]7.9 g/dLNormal6.4-8.2The [facility] Comment on above:Performed By: #### BNP, MG, CMP #### [facility] [address] [place] [address] Dr. Miah VelozSodium [Moles/Vol]142 mmol/KXaaldi811-923Tpt [facility] Comment on above:Performed By: #### BNP, MG, CMP #### [facility] [address] [address] [address] Miah Pineda nitrogen [Mass/Vol]15.0 mg/dLNormal7.0-18.0The [facility] CenterComment on above:Performed By: #### BNP, MG, CMP #### [facility] [address] [address] [address] Miah Pineda nitrogen/Creatinine [Mass ratio]17.0 mg/mgNoWadsworth-Rittman HospitalComment on above:Performed By: #### BNP, MG, CMP #### [facility] [address] [address] [address] Miah VelozXR CHEST 2 Von [id number] CHEST 2 VEXAM: XR CHEST 2 V HISTORY: Cardiovascular symptoms [...] Electronically authenticated by: LUZMA PHAM Date: 2023-01-15 12:47[facility] HospitalURGICAL PATH REPORTon [id number] PATH REPORTSHolzer Hospital Department of Pathology [address] [place] [id number] [phone] Name: GARRY LU : 1955 [facility] [id number] Number: [facility] : n: Admit 67 years Attending TAVIA [place] Age: Provider: Ordering TAVIA [place] Provider: Consulti Surgical Pathology Report ng: ACCESSION: COLLECTED DATE/TIME: RECEIVED DATE/TIME: PATHOLOGIST: [id number] 10/28/2022 11:24 EST 10/28/2022 11:24 WESTON MAYER MD Final Diagnosis Report for [facility], [place], [place] (A) SIGMOID POLYP AT 40 CM: - TUBULAR ADENOMA. (B) DESCENDING COLON, BIOPSY: - COLONIC MUCOSA, NO DIAGNOSTIC ABNORMALITY RECOGNIZED. COMMENT: Evidence of microscopic colitis is not seen. (C) POLYP AT 20 CM: - SUBMUCOSAL LIPOMA. WESTON PELAEZ PATHOLOGIST (Electronic Signature) Date Verified 10/29/2022 LN Clinical Data PRE-OP DIAGNOSIS: Not specified POST-OP DIAGNOSIS: Diarrhea PROCEDURES: Colonoscopy with biopsy, hot snare polypectomies SPECIMEN: (A) 40 cm sigmoid polyp (B) Descending colon biopsy (C) Polyp at 20 cm / Ambulatory surgery ____ Print 10/29/2022 14:17 EST Number: Date/Time: [facility] Department of Pathology [address] [place] [id number] Name: GARRY LU : 1955 [facility] [id number] Number: Gender Male [facility] : n: Admit 67 years Attending TAVIA [place] Age: Provider: Ordering TAVIA [place] Provider: Consulti Surgical Pathology Report ng: ACCESSION: COLLECTED DATE/TIME: RECEIVED DATE/TIME: PATHOLOGIST: [id number] 10/28/2022 11:24 EST 10/28/2022 11:24 WESTON MAYER MD Gross Description (A) Labeled 40 cm [...] MP/ald 10/28/2022 Tissue pathology report for: [facility], [address] [place] [address]; PATHOLOGY SERVICES PROVIDED BY [facility] (CLIA #[id number]) in cooperation with [facility] at [address] [place] [address] ( CLIA #[id number]) Codes CPT CODE: 78859H3 ____ Print 10/29/2022 14:17 EST Number: Date/Time: [facility] HospitalComment on above:Performed By: #### [id number] #### [facility] Laboratory Services [address] [place] [address] Chemical Analyst: ROHITH Hamiltonovividal-19 PCR ([facility])on 10-24-2022 SARS-CoV-2 (COVID-19) RNA GÓMEZ+probe Ql (Unsp spec)Not detectedNormalNOT DETECTED The [facility] CenterComment on above:Result Comment: This test is not yet approved or cleared by the [place] FDA. When there are no FDA-approved or cleared tests available, and other criteria are met, FDA can make tests available under an emergency access mechanism called an Emergency Use Authorization (EUA). The EUA for this test is supported by the [employer] Operator of Health and Human Service's (HHS's) declaration [...] of clinical signs and symptoms consistent with SARS-CoV-2.Performed By: #### CVDTBH #### [facility] [address] [place] [address] Dr. Miah Ferguson AUTO DIFFon [id number] #0.1 103/ulNormal0.0-0.1[facility] Hospital LimaComment on above:Performed By: #### BNP, CMP, HSTROPN #### [facility] Laboratory [address] [place] [address] Dr. Miah VelozBasophils/100 WBC (Bld)0.7 %Normal0.2-2.0[facility] Comment on above:Performed By: #### BNP, CMP, HSTROPN #### [facility] [address] [place] [address] Dr. Miah Camacho #0.4 103/ulNormal0.0-0.7The [facility] CenterComment on above: Performed By: #### BNP, CMP, HSTROPN #### [facility] [address] [place] [address] Dr. Miah Rosalesosinophils/100 WBC (Bld)4.1 %Normal0.9-7.0[facility] Comment on above:Performed By: #### BNP, CMP, HSTROPN #### [facility] [address] [place] [address] Dr. Miah Rosalesrythrocyte distribution width (RBC) [Ratio]16.0 %Critically high 11.0-15.0The [facility] CenterComment on above:Performed By: #### BNP, CMP, HSTROPN #### [facility] Laboratory [address] [place] [address] Dr. Miah VelozHematocrit (Bld) [Volume fraction]41.2 %Critically low42.0-54.0 The [facility] CenterComment on above:Performed By: #### BNP, CMP, HSTROPN #### [facility] [address] [place] [address] Dr. Miah VelozHemoglobin (Bld) [Mass/Vol]14.1 g/sBEpittq43.0-18.0The [facility] CenterComment on above:Performed By: #### BNP, CMP, HSTROPN #### [facility] [address] [place] [address] Dr. Miah Chairez #0.03 10e3/ulNormal0.00-0.03The [facility] CenterComment on above:Performed By: #### BNP, CMP, HSTROPN #### [facility] Laboratory [address] [place] [address] Dr. Miah Chairez %0.3 %Normal0.0-0.5The [facility] CenterComeaton rapids medical center on above: Performed By: #### BNP, CMP, HSTROPN #### [facility] [address] [place] [address] Dr. Miah Brown #2.8 103/ulNormal1.2-3.8The [facility] CenterComment on above:Performed By: #### BNP, CMP, HSTROPN #### [facility] [address] [place] [address] Dr. Miah Hopemphocytes/100 WBC (Bld)28.5 %Egngfs41.5-60.0The [facility] CenterComment on above:Performed By: #### BNP, CMP, HSTROPN #### [facility] [address] [place] [address] Dr. Miah Calderon DIFF REQNONormalThe [facility] CenterComment on above: Performed By: #### BNP, CMP, HSTROPN #### [facility] [address] [place] [address] Dr. Miah Roe (RBC) [Entitic mass]32.4 dsJuunjx58.9-34.0The [facility] HospitalComment on above:Performed By: #### BNP, CMP, HSTROPN #### [facility] [address] [place] [address] Dr. [facility] (RBC) [Mass/Vol]34.2 g/gZNrtspr19.9-35.2The [facility] CenterComment on above:Performed By: #### BNP, CMP, HSTROPN #### [facility] [address] [place] [address] Dr. Miah Roe (RBC) [Entitic vol]94.7 fLCritically high80.0-94.0The [facility] CenterComment on above:Performed By: #### BNP, CMP, HSTROPN #### [facility] [address] [place] [address] Dr. Miah Jason #0.8 103/ulNormal0.3-0.8The [facility] CenterComment on above:Performed By: #### BNP, CMP, HSTROPN #### [facility] [address] [place] [address] Dr. Miah Powerocytes/100 WBC (Bld)7.6 %Normal1.7-12.0The [facility] Comment on above:Performed By: #### BNP, CMP, HSTROPN #### [facility] [address] [place] [address] Dr. Miah May #5.8 103/ulNormal1.4-6.5The [facility] CenterComment on above:Performed By: #### BNP, CMP, HSTROPN #### [facility] [address] [place] [address] Dr. Yilan ChangNeutrophils/100 WBC (Bld)58.8 %Owwoit67.0-75.0The [facility] CenterComment on above:Performed By: #### BNP, CMP, HSTROPN #### [facility] [address] [place] [address] Dr. Miah Randall mean volume (Bld) [Entitic vol]10.3 fLNormal9.5-13.5The [facility] CenterComment on above:Performed By: #### BNP, CMP, HSTROPN #### [facility] [address] [place] [address] Dr. Miah VelozPLT184 103/hdYcekeq101-257Nmh [facility] CenterComment on above: Performed By: #### BNP, CMP, HSTROPN #### [facility] [address] [place] [address] Dr. Miah VelozRBC4.35 106/ulCritically low4.70-6.10The [facility] CenterComment on above:Performed By: #### BNP, CMP, HSTROPN #### [facility] [address] [place] [address] Dr. Miah VelozWBC9.9 103/ulNormal4.0-11.0The [facility] CenterComment on above: Performed By: #### BNP, CMP, HSTROPN #### [facility] [address] [place] [address] Dr. Miah VelozPROF CHEM 8 (BAS METB)on 79-28-1418Dtvkk gap [Moles/Vol]13.2 mmol/LNormalThe [facility] CenterComment on above:Performed By: #### BNP, CMP, HSTROPN #### [facility] [address] [place] [address] Dr. Miah VelozCalcium [Mass/Vol]8.8 mg/dLNormal8.5-10.1The [facility] Comment on above:Performed By: #### BNP, CMP, HSTROPN #### [facility] [address] [place] [address] Dr. Miah VelozChloride [Moles/Vol]107 mmol/OAagfqc29-744Lnr [facility] Comment on above:Performed By: #### BNP, CMP, HSTROPN #### [facility] [address] [address] [address] Miah VelozCO2 [Moles/Vol]25.5 mmol/PGpfjbs56.0-32.0The [facility] Comment on above:Performed By: #### BNP, CMP, HSTROPN #### [facility] [address] [address] [address] Miah VelozCreatinine [Mass/Vol]1.37 mg/dLCritically high0.70-1.30The [facility] CenterComment on above:Performed By: #### BNP, CMP, HSTROPN #### [facility] [address] [address] [address] Dooley ChangEGFR-AF SWEDISH>60Normal>=60The [facility] CenterComment on above:Performed By: #### BNP, CMP, HSTROPN #### [facility] [address] [address] [address] Miah RosalesGFR-NON AF TQTIQSXY48 mL/min/1.43t6Ucqgtmwlyw low>=60The [facility] CenterComment on above:Performed By: #### BNP, CMP, HSTROPN #### [facility] [address] [place] [address] Dr. Miah VelozGlucose [Mass/Vol]103 mg/aNNtwqmb58-200Fyc [facility] Comment on above:Performed By: #### BNP, CMP, HSTROPN #### [facility] [address] [address] [address] Miah VelozPotassium [Moles/Vol]4.7 mmol/LNormal3.5-5.1The [facility] Comment on above:Performed By: #### BNP, CMP, HSTROPN #### [facility] [address] [address] [address] Miah VelozSodium [Moles/Vol]141 mmol/ZFfehcg285-253Xrr [facility] Comment on above:Performed By: #### BNP, CMP, HSTROPN #### [facility] [address] [place], [place] [address] Dr. Miah Pineda nitrogen [Mass/Vol]32.0 mg/dLCritically high7.0-18.0[facility] Hospital LimaComment on above:Performed By: #### BNP, CMP, HSTROPN #### [facility] [address] [address] [address] Miah Pineda nitrogen/Creatinine [Mass ratio]23.4 mg/mgNormalThe [facility] CenterComment on above:Performed By: #### BNP, CMP, HSTROPN #### [facility] [address] [address] [address] Miah RosalesCHOCARDIKarie M/2D COMPLETEon 66-21-8483NSQLZJTJEA M/2D COMPLETE Patient: GARRY LU Exam Date: 08/05/2022 : 1955 Gender:M Ordering : TACHO SÁNCHEZ Admission #: [id number] Family : Order #: [id number] CLICK HERE TO VIEW EXAM ECHOCARDIOGRAM REPORT [...] by: Justen Baumann M.D. on 08/05/2022 at 14:32Marymount HospitalPROF 14(COMP METB)on 62-54-5213Cfqroba [Mass/Vol]3.4 g/dLNormal3.4-5.0 The [facility] CenterComment on above:Performed By: #### BNP, CMP, HSTROPN #### [facility] [address] [address] [address] Miha VelozAlbumin/Globulin [Mass ratio]0.9 {ratio}NormalThe [facility] on above:Performed By: #### BNP, CMP, HSTROPN #### [facility] [address] [place], [place] [address] Dr. Miah GoodeP [Catalytic activity/Vol]73 U/ZZkwtyo47-477Iry [facility] CenterComment on above:Performed By: #### BNP, CMP, HSTROPN #### [facility] [address] [address] [address] Miah Fontenot [Catalytic activity/Vol]31 U/BQnhpqa06-31Xkv [facility] CenterComment on above:Performed By: #### BNP, CMP, HSTROPN #### [facility] [address] [place] [address] Dr. Miah Green gap [Moles/Vol]13.6 mmol/LNormalKindred Hospital Lima Comment on above:Performed By: #### BNP, CMP, HSTROPN #### [facility] [address] [place] [address] Dr. Miah Chavarria [Catalytic activity/Vol]14 U/LCritically xeo92-74Lgn [facility] CenterComment on above:Performed By: #### BNP, CMP, HSTROPN #### [facility] [address] [place] [address] Dr. Miah VelozBilirubin [Mass/Vol]0.6 mg/dLNormal0.2-1.0[facility] Comment on above:Performed By: #### BNP, CMP, HSTROPN #### [facility] [address] [place] [address] Dr. Miah VelozCalcium [Mass/Vol]8.8 mg/dLNormal8.5-10.1[facility] Comment on above:Performed By: #### BNP, CMP, HSTROPN #### [facility] [address] [place] [address] Dr. Miah VelozChloride [Moles/Vol]105 mmol/ZHmfdqx75-474EenKindred Hospital Lima Comment on above:Performed By: #### BNP, CMP, HSTROPN #### [facility] [address] [place] [address] Dr. Miah VelozCO2 [Moles/Vol]27.7 mmol/SWcpqoe80.0-32.0[facility] Comment on above:Performed By: #### BNP, CMP, HSTROPN #### [facility] [address] [address] [address] Miah VelozCreatinine [Mass/Vol]1.17 mg/dLNormal0.70-1.30The [facility] CenterComment on above:Performed By: #### BNP, CMP, HSTROPN #### [facility] [address] [place] [address] Dr. Miah RosalesGFR-AF SWEDISH>60Normal>=60The [facility] CenterComment on above:Performed By: #### BNP, CMP, HSTROPN #### [facility] [address] [place] [address] Dr. Miah RosalesGFR-NON AF SWEDISH>60Normal>=60The [facility] CenterComment on above:Performed By: #### BNP, CMP, HSTROPN #### [facility] [address] [place] [address] Dr. Miah VelozGlobulin (S) [Mass/Vol]3.9 g/dLNormalThe [facility] CenterComment on above:Performed By: #### BNP, CMP, HSTROPN #### [facility] [address] [place] [address] Dr. Miah VelozGlucose [Mass/Vol]138 mg/dLCritically tvxt14-847Drv [facility] Campusment on above:Performed By: #### BNP, CMP, HSTROPN #### [facility] [address] [place] [address] Dr. Miah VelozPotassium [Moles/Vol]4.3 mmol/LNormal3.5-5.1The [facility] Comment on above:Performed By: #### BNP, CMP, HSTROPN #### [facility] [address] [place] [address] Dr. Miah VelozProtein [Mass/Vol]7.3 g/dLNormal6.4-8.2The [facility] Comment on above:Performed By: #### BNP, CMP, HSTROPN #### [facility] [address] [place] [address] Dr. Miah VelozSodium [Moles/Vol]142 mmol/JHvcecv029-252XjgKindred Hospital Lima Comment on above:Performed By: #### BNP, CMP, HSTROPN #### [facility] [address] [address] [address] Miah Pineda nitrogen [Mass/Vol]25.0 mg/dLCritically high7.0-18.0The [facility] CenterComment on above:Performed By: #### BNP, CMP, HSTROPN #### [facility] [address] [address] [address] Miah Pineda nitrogen/Creatinine [Mass ratio]21.4 mg/mgNoWadsworth-Rittman HospitalComment on above:Performed By: #### BNP, CMP, HSTROPN #### [facility] [address] [address] [address] Miah Tobias BRANDO DOP LEG BILon [id number] BRANDO DOP LEG BILEXAMINATION: US BRANDO DOP LEG DELORES HISTORY: Atrial [...] Electronically authenticated by: MURPHY GRIFFIN Date: 2022-05-14 16:51[facility] AUTO DIFFon [id number] #0.1 103/ulNormal0.0-0.1The [facility] CenterComment on above:Performed By: #### CBC #### [facility] [address] [address] [address] Miah VelozBasophils/100 WBC (Bld)0.7 %Normal0.2-2.0[facility] Comment on above:Performed By: #### CBC #### [facility] [address] [address] [address] Miah Camacho #0.2 103/ulNormal0.0-0.7The [facility] CenterComment on above: Performed By: #### CBC #### [facility] [address] [place] [address] Dr. Miah Rosalesosinophils/100 WBC (Bld)2.9 %Normal0.9-7.0The [facility] Comment on above:Performed By: #### CBC #### [facility] [address] [place] [address] Dr. Miah Rosalesrythrocyte distribution width (RBC) [Ratio]13.2 %Mhblog49.0-15.0 The [facility] Campusment on above:Performed By: #### CBC #### [facility] [address] [place] [address] Dr. Miah VelozHematocrit (Bld) [Volume fraction]36.9 %Critically low42.0-54.0 The [facility] Campusment on above:Performed By: #### CBC #### [facility] [address] [place] [address] Dr. Miah VelozHemoglobin (Bld) [Mass/Vol]12.4 g/dLCritically low14.0-18.0The [facility] Campusment on above:Performed By: #### CBC #### [facility] [address] [place] [address] Dr. Miah Chairez #0.03 10e3/ulNormal0.00-0.03The [facility] Campusment on above:Performed By: #### CBC #### [facility] [address] [place] [address] Dr. Miah Chairez %0.4 %Normal0.0-0.5The [facility] Campusment on above: Performed By: #### CBC #### [facility] [address] [place] [address] Dr. Miah Brown #1.8 103/ulNormal1.2-3.8The [facility] CenterComment on above:Performed By: #### CBC #### [facility] [address] [address] [address] Miah Hopemphocytes/100 WBC (Bld)23.0 %Xpfcag86.5-60.0The [facility] CenterComment on above:Performed By: #### CBC #### [facility] [address] [address] [address] Miah Calderon DIFF REQNONormalThe Norman HospitalComment on above: Performed By: #### CBC #### [facility] [address] [address] [address] Miah Roe (RBC) [Entitic mass]32.3 egMrwtpi77.9-34.0The [facility] CenterComment on above:Performed By: #### CBC #### [facility] [address] [place] [address] Dr. Miah Roe (RBC) [Mass/Vol]33.6 g/dBNbmyxd05.9-35.2The [facility] CenterComment on above:Performed By: #### CBC #### [facility] [address] [place] [address] Dr. Miah Roe (RBC) [Entitic vol]96.1 fLCritically high80.0-94.0The [facility] CenterComment on above:Performed By: #### CBC #### [facility] [address] [place] [address] Dr. Miah Jason #0.8 103/ulNormal0.3-0.8The [facility] CenterComment on above:Performed By: #### CBC #### [facility] [address] [place] [address] Dr. Miah Powerocytes/100 WBC (Bld)10.2 %Normal1.7-12.0The [facility] Comment on above:Performed By: #### CBC #### [facility] [address] [place] [address] Dr. Miah May #4.8 103/ulNormal1.4-6.5The [facility] CenterComment on above:Performed By: #### CBC #### [facility] [address] [place] [address] Dr. Miah VelozNeutrophils/100 WBC (Bld)62.8 %Snmdsj46.0-75.0The [facility] CenterComment on above:Performed By: #### CBC #### [facility] [address] [place] [address] Dr. Miah VelozPlatelet mean volume (Bld) [Entitic vol]10.2 fLNormal9.5-13.5The [facility] CenterComment on above:Performed By: #### CBC #### [facility] [address] [place] [address] Dr. Miah VelozPLT224 103/blFzjkjj521-601Glj [facility] CenterComment on above: Performed By: #### CBC #### [facility] [address] [place] [address] Dr. Miah VelozRBC3.84 106/ulCritically low4.70-6.10The [facility] CenterComment on above:Performed By: #### CBC #### [facility] [address] [place] [address] Dr. Miah VelozWBC7.7 103/ulNormal4.0-11.0The [facility] CenterComment on above: Performed By: #### CBC #### [facility] [address] [place] [address] Dr. Miah VelozPROF CHEM 8 (BAS METB)on [id number] gap [Moles/Vol]14.4 mmol/LNormalThe [facility] CenterComment on above:Performed By: #### BNP, CMP, HSTROPN #### [facility] [address] [place] [address] Dr. Miah VelozCalcium [Mass/Vol]8.3 mg/dLCritically low8.5-10.1The [facility] CenterComment on above:Performed By: #### BNP, CMP, HSTROPN #### [facility] [address] [address] [address] Miah VelozChloride [Moles/Vol]106 mmol/EExqylm83-098Ziw [facility] Comment on above:Performed By: #### BNP, CMP, HSTROPN #### [facility] [address] [place] [address] Dr. Miah VelozCO2 [Moles/Vol]27.0 mmol/YUbwgaj64.0-32.0The [facility] Comment on above:Performed By: #### BNP, CMP, HSTROPN #### [facility] [address] [place] [address] Dr. Miah VelozCreatinine [Mass/Vol]1.12 mg/dLNormal0.70-1.30The [facility] CenterComment on above:Performed By: #### BNP, CMP, HSTROPN #### [facility] [address] [place] [address] Dr. Dooley ChangEGFR-AF SWEDISH>60Normal>=60The [facility] CenterComment on above:Performed By: #### BNP, CMP, HSTROPN #### [facility] [address] [place] [address] Dr. Miah RosalesGFR-NON AF SWEDISH>60Normal>=60The [facility] CenterComment on above:Performed By: #### BNP, CMP, HSTROPN #### [facility] [address] [place] [address] Dr. Miah VelozGlucose [Mass/Vol]103 mg/rKRowils70-953Sto [facility] Comment on above:Performed By: #### BNP, CMP, HSTROPN #### [facility] [address] [place] [address] Dr. Miah VelozPotassium [Moles/Vol]3.4 mmol/LCritically low3.5-5.1The [facility] CenterComment on above:Performed By: #### BNP, CMP, HSTROPN #### [facility] [address] [place] [address] Dr. Miah VelozSodium [Moles/Vol]144 mmol/REpshof362-398Epn [facility] Comment on above:Performed By: #### BNP, CMP, HSTROPN #### [facility] [address] [place] [address] Dr. Miah Pineda nitrogen [Mass/Vol]21.0 mg/dLCritically high7.0-18.0The [facility] CenterComment on above:Performed By: #### BNP, CMP, HSTROPN #### [facility] [address] [place] [address] Dr. Miah Pineda nitrogen/Creatinine [Mass ratio]18.8 mg/mgNormalThe [facility] CenterComment on above:Performed By: #### BNP, CMP, HSTROPN #### [facility] [address] [place] [address] Dr. Miah Ferguson AUTO DIFFon [id number] #0.0 103/ulNormal0.0-0.1The [facility] CenterComment on above:Performed By: #### BNP, CMP, HSTROPN #### [facility] [address] [place] [address] Dr. Miah VelozBasophils/100 WBC (Bld)0.4 %Normal0.2-2.0The [facility] Comment on above:Performed By: #### BNP, CMP, HSTROPN #### [facility] [address] [place] [address] Dr. Miah Camacho #0.2 103/ulNormal0.0-0.7The [facility] CenterComment on above: Performed By: #### BNP, CMP, HSTROPN #### [facility] [address] [place] [address] Dr. Miah Rosalesosinophils/100 WBC (Bld)3.2 %Normal0.9-7.0The [facility] Comment on above:Performed By: #### BNP, CMP, HSTROPN #### [facility] [address] [place] [address] Dr. Miah Rosalesrythrocyte distribution width (RBC) [Ratio]13.6 %Zugdfj04.0-15.0 The [facility] CenterComment on above:Performed By: #### BNP, CMP, HSTROPN #### [facility] [address] [place] [address] Dr. Miah VelozHematocrit (Bld) [Volume fraction]36.7 %Critically low42.0-54.0 The [facility] CenterComment on above:Performed By: #### BNP, CMP, HSTROPN #### [facility] [address] [place] [address] Dr. Miah VelozHemoglobin (Bld) [Mass/Vol]12.0 g/dLCritically low14.0-18.0The [facility] CenterComment on above:Performed By: #### BNP, CMP, HSTROPN #### [facility] [address] [place] [address] Dr. Miah Chairez #0.02 10e3/ulNormal0.00-0.03The [facility] CenterComment on above:Performed By: #### BNP, CMP, HSTROPN #### [facility] [address] [place] [address] Dr. Miah Chairez %0.3 %Normal0.0-0.5The [facility] Campusment on above: Performed By: #### BNP, CMP, HSTROPN #### [facility] [address] [place] [address] Dr. Miah Brown #1.6 103/ulNormal1.2-3.8The [facility] CenterComment on above:Performed By: #### BNP, CMP, HSTROPN #### [facility] [address] [place] [address] Dr. Miah Alexandrahocytes/100 WBC (Bld)22.2 %Mpukby16.5-60.0The [facility] CenterComment on above:Performed By: #### BNP, CMP, HSTROPN #### [facility] [address] [place] [address] Dr. Miah DuarteUAL DIFF REQNONormalThe [facility] CenterComment on above: Performed By: #### BNP, CMP, HSTROPN #### [facility] [address] [address] [address] Miah Roe (RBC) [Entitic mass]32.3 gtDgdlew30.9-34.0The [facility] CenterComment on above:Performed By: #### BNP, CMP, HSTROPN #### [facility] [address] [place] [address] Dr. Miah Roe (RBC) [Mass/Vol]32.7 g/eFZvosty71.9-35.2The [facility] CenterComment on above:Performed By: #### BNP, CMP, HSTROPN #### [facility] [address] [place] [address] Dr. Miah Roe (RBC) [Entitic vol]98.7 fLCritically high80.0-94.0The [facility] CenterComment on above:Performed By: #### BNP, CMP, HSTROPN #### [facility] [address] [place] [address] Dr. Miah Jason #0.7 103/ulNormal0.3-0.8The [facility] CenterComment on above:Performed By: #### BNP, CMP, HSTROPN #### [facility] [address] [place] [address] Dr. Miah Powerocytes/100 WBC (Bld)9.1 %Normal1.7-12.0The [facility] Comment on above:Performed By: #### BNP, CMP, HSTROPN #### [facility] [address] [place] [address] Dr. Miah May #4.6 103/ulNormal1.4-6.5The [facility] CenterComment on above:Performed By: #### BNP, CMP, HSTROPN #### [facility] [address] [place] [address] Dr. Miah Rosautrophils/100 WBC (Bld)64.8 %Pwynyf26.0-75.0The [facility] HospitalComment on above:Performed By: #### BNP, CMP, HSTROPN #### [facility] [address] [place] [address] Dr. Miah Felizlet mean volume (Bld) [Entitic vol]10.2 fLNormal9.5-13.5The [facility] CenterComment on above:Performed By: #### BNP, CMP, HSTROPN #### [facility] [address] [place] [address] Dr. Miah VelozPLT200 103/ylZatjsp002-900Pnh [facility] CenterComment on above: Performed By: #### BNP, CMP, HSTROPN #### [facility] [address] [place] [address] Dr. Miah VelozRBC3.72 106/ulCritically low4.70-6.10The [facility] CenterComment on above:Performed By: #### BNP, CMP, HSTROPN #### [facility] [address] [place] [address] Dr. Miah VelozWBC7.1 103/ulNormal4.0-11.0The [facility] CenterComment on above: Performed By: #### BNP, CMP, HSTROPN #### [facility] [address] [place] [address] Dr. Miah RosalesCHOCARDIKarie M/2D COMPLETEon [id number] M/2D COMPLETE Patient: GARRY LU Exam Date: 04/27/2022 : 1955 Gender:M Ordering : DR ANDREI ORONA . Admission #: [id number] Family : Order #: [id number] CLICK HERE TO VIEW EXAM ECHOCARDIOGRAM REPORT [...] Area(A4C): 22.40 cm2 Left Atrium Systolic Volume(A2C): 58782 mm3 Left Atrium Systolic Volume(A4C): 35894 mm3 Mitral Valve Mitral Valve E-Wave Peak [...] by: Zaki Palacios M.D. on 04/27/2022 at 16:58Mary[facility] HospitalPROF CHEM 8 (BAS METB)on [id number] gap [Moles/Vol]13.3 mmol/L NormalThe [facility] CenterComment on above:Performed By: #### BMP #### [facility] [address] [place] [address] Dr. Miah VelozCalcium [Mass/Vol]8.2 mg/dLCritically low8.5-10.1The [facility] CenterComment on above:Performed By: #### BMP #### [facility] [address] [place] [address] Dr. Miah VelozChloride [Moles/Vol]107 mmol/XVwkqac44-508CvbKindred Hospital Lima Comment on above:Performed By: #### BMP #### [facility] [address] [place] [address] Dr. Miah VelozCO2 [Moles/Vol]27.5 mmol/VXfvyxs07.0-32.0The [facility] Comment on above:Performed By: #### BMP #### [facility] [address] [address] [address] Miah VelozCreatinine [Mass/Vol]0.97 mg/dLNormal0.70-1.30The [facility] CenterComment on above:Performed By: #### BMP #### [facility] [address] [place] [address] Dr. Miah RosalesGFR-AF SWEDISH>60Normal>=60The [facility] CenterComment on above:Performed By: #### BMP #### [facility] [address] [place] [address] Dr. Miah RosalesGFR-NON AF SWEDISH>60Normal>=60The [facility] CenterComment on above:Performed By: #### BMP #### [facility] [address] [address] [address] Miah VelozGlucose [Mass/Vol]102 mg/bLBhwked05-140Tqf [facility] Comment on above:Performed By: #### BMP #### [facility] [address] [address] [address] Miah VelozPotassium [Moles/Vol]3.8 mmol/LNormal3.5-5.1[facility] Comment on above:Performed By: #### BMP #### [facility] [address] [address] [address] Maih Mcleandium [Moles/Vol]144 mmol/WRaazqi626-204Fbo [facility] Comment on above:Performed By: #### BMP #### [facility] [address] [address] [address] Miah VelozUrea nitrogen [Mass/Vol]17.0 mg/dLNormal7.0-18.0The [facility] CenterComment on above:Performed By: #### BMP #### [facility] [address] [place] [address] Dr. Miah Pineda nitrogen/Creatinine [Mass ratio]17.5 mg/mgNormalThe [facility] CenterComment on above:Performed By: #### BMP #### [facility] [address] [address] [address] Miah Charles 68-50-8241Goklemvckaz peptide B (Bld) [Mass/Vol]1105.0 pg/mLCritically high<=900.0The [facility] CenterComment on above:Performed By: #### BNP, CMP, HSTROPN #### [facility] [address] [place] [address] Dr. Miah Ferguson AUTO DIFFon [id number] #0.0 103/ulNormal0.0-0.1The [facility] CenterComment on above:Performed By: #### CBC #### [facility] [address] [address] [address] Miah VelozBasophils/100 WBC (Bld)0.6 %Normal0.2-2.0The [facility] Comment on above:Performed By: #### CBC #### [facility] [address] [place] [address] Dr. Miah Camacho #0.2 103/ulNormal0.0-0.7The [facility] CenterComment on above: Performed By: #### CBC #### [facility] [address] [place] [address] Dr. Miah Rosalesosinophils/100 WBC (Bld)2.1 %Normal0.9-7.0The [facility] Comment on above:Performed By: #### CBC #### [facility] [address] [place] [address] Dr. Miah Rosalesrythrocyte distribution width (RBC) [Ratio]13.7 %Zhkhlu00.0-15.0 The [facility] CenterComment on above:Performed By: #### CBC #### [facility] [address] [place] [address] Dr. Miah VelozHematocrit (Bld) [Volume fraction]39.3 %Critically low42.0-54.0 The [facility] CenterComment on above:Performed By: #### CBC #### [facility] [address] [place] [address] Dr. Miah VelozHemoglobin (Bld) [Mass/Vol]13.0 g/dLCritically low14.0-18.0The [facility] CenterComment on above:Performed By: #### CBC #### [facility] [address] [place] [address] Dr. Miah Chairez #0.02 10e3/ulNormal0.00-0.03The [facility] CenterComment on above:Performed By: #### CBC #### [facility] [address] [place] [address] Dr. Miah Chairez %0.3 %Normal0.0-0.5The [facility] CenterComment on above: Performed By: #### CBC #### [facility] [address] [address] [address] Miah Brown #1.1 103/ulCritically low1.2-3.8The [facility] Comment on above:Performed By: #### CBC #### [facility] [address] [address] [address] Miah Hopemphocytes/100 WBC (Bld)16.1 %Critically low20.5-60.0The [facility] CenterComment on above:Performed By: #### CBC #### [facility] [address] [address] [address] Miah Calderon DIFF REQNONormalThe [facility] CenterComment on above: Performed By: #### CBC #### [facility] [address] [place] [address] Dr. Miah Roe (RBC) [Entitic mass]32.7 dbVuoxgt27.9-34.0The [facility] CenterComment on above:Performed By: #### CBC #### [facility] [address] [place] [address] Dr. Miah Roe (RBC) [Mass/Vol]33.1 g/eUGlkizq84.9-35.2The [facility] CenterComment on above:Performed By: #### CBC #### [facility] [address] [place] [address] Dr. Miah Roe (RBC) [Entitic vol]98.7 fLCritically high80.0-94.0The [facility] CenterComment on above:Performed By: #### CBC #### [facility] [address] [address] [address] Miah Jason #0.5 103/ulNormal0.3-0.8The [facility] CenterComment on above:Performed By: #### CBC #### [facility] [address] [place] [address] Dr. Miah Powerocytes/100 WBC (Bld)7.6 %Normal1.7-12.0The [facility] Comment on above:Performed By: #### CBC #### [facility] [address] [place] [address] Dr. Miah RosaUT #5.2 103/ulNormal1.4-6.5The [facility] CenterComment on above:Performed By: #### CBC #### [facility] [address] [place] [address] Dr. Miah Rosautrophils/100 WBC (Bld)73.3 %Bfyzat33.0-75.0The [facility] CenterComment on above:Performed By: #### CBC #### [facility] [address] [place] [address] Dr. Miah Felizlet mean volume (Bld) [Entitic vol]10.7 fLNormal9.5-13.5The [facility] CenterComment on above:Performed By: #### CBC #### [facility] [address] [place] [address] Dr. Miah VelozPLT200 103/xyHavqbn280-762Lgd [facility] CenterComment on above: Performed By: #### CBC #### [facility] [address] [place] [address] Dr. Miah VelozRBC3.98 106/ulCritically low4.70-6.10The [facility] CenterComment on above:Performed By: #### CBC #### [facility] [address] [place] [address] Dr. Miah VelozWBC7.1 103/ulNormal4.0-11.0The [facility] CenterComment on above: Performed By: #### CBC #### [facility] [address] [place] [address] Dr. Miah Chacon CHEST WO W CONon 09-39-0462CDJ CHEST WO W CONEXAMINATION: CTA CHEST WO W CON HISTORY: SHORTNESS [...] Electronically authenticated by: NICK CABRALES Date: 2022-04-26 10:50NoWadsworth-Rittman HospitalCovid-19 PCR (CVDTBH)on 21-72-2710KPVB-CoV-2 (COVID-19) RNA GÓMEZ+probe Ql (Unsp spec)Not detectedNormalNOT DETECTEDThe [facility] Comment on above:Result Comment: When diagnostic testing is negative, the [...] for this test is supported by the Refined Syrup Operator of Health and Human Service's declaration that circumstances exist to justify the emergency use of in vitro diagnostics for the detection and/or diagnosis of the virus that causes COVID-19. This EUA will remain in effect for the duration of the COVID-19 declaration justifying emergency of IVDs, unless it is terminated or revoked by the FDA (after which the test may no longer be used).Performed By: #### BNP, CMP, HSTROPN #### [facility] [address] [place] [address] Dr. Miah Pastrana 14(COMP METB)on 37-51-6160Feyoojj [Mass/Vol]3.1 g/dL Critically low3.4-5.0The [facility] CenterComment on above:Performed By: #### BNP, CMP, HSTROPN #### [facility] [address] [address] [address] Miah VelozAlbumin/Globulin [Mass ratio]0.9 {ratio}NormalThe [facility] CenterComment on above:Performed By: #### BNP, CMP, HSTROPN #### [facility] [address] [address] [address] Miah Meier [Catalytic activity/Vol]54 U/RXojkkg31-971Lxg [facility] CenterComment on above:Performed By: #### BNP, CMP, HSTROPN #### [facility] [address] [address] [address] Miah Fontenot [Catalytic activity/Vol]63 U/PWvenrw54-95Mha [facility] CenterComment on above:Performed By: #### BNP, CMP, HSTROPN #### [facility] [address] [address] [address] Miah Green gap [Moles/Vol]13.9 mmol/LNormalThe [facility] Comment on above:Performed By: #### BNP, CMP, HSTROPN #### [facility] [address] [address] [address] Miah VelozAST [Catalytic activity/Vol]32 U/EUkglpf18-18Ihe [facility] System East Campusment on above:Performed By: #### BNP, CMP, HSTROPN #### [facility] [address] [address] [address] Miah VelozCalcium [Mass/Vol]8.7 mg/dLNormal8.5-10.1The [facility] Comment on above:Performed By: #### BNP, CMP, HSTROPN #### [facility] [address] [address] [address] Miah VelozChloride [Moles/Vol]108 mmol/LCritically azkf01-792Xaq [facility] CenterComment on above:Performed By: #### BNP, CMP, HSTROPN #### [facility] [address] [address] [address] Miah VelozCO2 [Moles/Vol]24.3 mmol/NNuyiky77.0-32.0The [facility] Comment on above:Performed By: #### BNP, CMP, HSTROPN #### [facility] [address] [address] [address] Miah VelozCreatinine [Mass/Vol]0.90 mg/dLNormal0.70-1.30The [facility] CenterComment on above:Performed By: #### BNP, CMP, HSTROPN #### [facility] [address] [place] [address] Dr. Miah RosalesGFR-AF SWEDISH>60Normal>=60The [facility] CenterComment on above:Performed By: #### BNP, CMP, HSTROPN #### [facility] [address] [place] [address] Dr. Miah RosalesGFR-NON AF SWEDISH>60Normal>=60The [facility] CenterComment on above:Performed By: #### BNP, CMP, HSTROPN #### [facility] [address] [place] [address] Dr. Miah VelozGlobulin (S) [Mass/Vol]3.6 g/dLNormalThe [facility] CenterComment on above:Performed By: #### BNP, CMP, HSTROPN #### [facility] [address] [place] [address] Dr. Miah VelozGlucose [Mass/Vol]146 mg/dLCritically oelm92-068Uql [facility] CenterComment on above:Performed By: #### BNP, CMP, HSTROPN #### [facility] [address] [place] [address] Dr. Miah VelozPotassium [Moles/Vol]4.2 mmol/LNormal3.5-5.1The [facility] Comment on above:Performed By: #### BNP, CMP, HSTROPN #### [facility] [address] [address] [address] Miah VelozProtein [Mass/Vol]6.7 g/dLNormal6.4-8.2[facility] Comment on above:Performed By: #### BNP, CMP, HSTROPN #### [facility] [address] [address] [address] Miah VelozSodium [Moles/Vol]142 mmol/IZpydjr004-545Xvr [facility] Comment on above:Performed By: #### BNP, CMP, HSTROPN #### [facility] [address] [place] [address] Dr. Miah Pineda nitrogen [Mass/Vol]19.0 mg/dLCritically high7.0-18.0[facility] LimaComment on above:Performed By: #### BNP, CMP, HSTROPN #### [facility] [address] [place] [address] Dr. Miah Pineda nitrogen/Creatinine [Mass ratio]21.1 mg/mgNoWadsworth-Rittman HospitalComment on above:Performed By: #### BNP, CMP, HSTROPN #### [facility] [address] [place] [address] Dr. Miah Ramos 41-83-6417FSF Coag (PPP) [Relative time]1.20 {INR} NormalKindred Hospital LimaComment on above:Performed By: #### BNP, CMP, HSTROPN #### [facility] [address] [place] [address] Dr. Miah hCen GUIDELINESSEE BELOWMarymount HospitalComment on above:Result Comment: DESIRED INR: 2.0 - 3.0 CONDITIONS NOT LISTED BELOW 2.5 - 3.5 FOR PROSTHETIC HEART VALVE REPLACEMENT 2.5 - 3.5 RECURRENT THROMBOSIS Performed By: #### BNP, CMP, HSTROPN #### [facility] [address] [place] [address] Dr. Miah VelozPT Coag (PPP) [Time]12.8 sCritically high9.0-11.6The [facility] CenterComment on above:Performed By: #### BNP, CMP, HSTROPN #### [facility] [address] [place] [address] Dr. Miah Ghotra 20-16-1611uQQK Coag (Bld) [Time]28.5 hIwhjie52.3-36.2The [facility] CenterComment on above:Performed By: #### BNP, CMP, HSTROPN #### [facility] [address] [place] [address] Dr. Miah Marquis, HIGH SENSITIVITYon 89-50-7704LRNHBA73.7 pg/mLNormal 4.0-76.1The [facility] CenterComment on above:Result Comment: CUT-OFF POINTS HAVE BEEN ESTABLISHED BASED ON THE FOURTH UNIVERSAL DEFINITIONS OF MYOCARDIAL INFARCTION. THE UPPER REFERENCE LIMIT (URL) OF TROPONIN, DEFINED THE 99TH PERCENTILE OF cTnI DISTRIBUTION IN A REFERENCE POPULATION, HAS BEEN CONFIRMED THE DECISION THRESHOLD FOR RI DIAGNOSIS.Performed By: #### BNP, CMP, HSTROPN #### [facility] [address] [place] [address] Dr. Miah Veloz Vital Signs Date TimeVital SignValuePerforming PawrasnwrNklkqthi16-47-2494 15:25-0500Body sieqkd159.9 cmDaksha Corona MD Work Phone: [facility]11-03-2025 15:25-0500Body mass index (BMI) [Ratio]26.45 kg/o1WwgkxfopDaksha Corona MD Work Phone: [facility]11-03-2025 15:25-0500Body fjbuah03.45 kgDaksha Corona MD Work Phone: [facility]11-03-2025 15:25-0500Diastolic blood hukbyuqv89 mm[Hg]Daksha Corona MD Work Phone: [facility]11-03-2025 15:25-0500Heart rate 62 /minDaksha Corona MD Work Phone: [facility]11-03-2025 15:25-3769YiB4% (BldA) [Mass fraction]98 %Daksha Corona MD Work Phone: [facility]11-03-2025 15:25-0500Systolic blood mm[Hg]Daksha Corona MD Work Phone: [facility] Encounters Encounter DateEncounter TypeCare ProviderFacilityStart: 09-24-2025 End: 76-90-3664Ueuccw outpatient new 45 minutesDaksha Corona MD Work Phone: [facility] Pulmonary/Sleep MedicineComment on above:Bronchospasm (Primary Dx); Shortness of breath; Nodule of lower lobe of right lung; History of smokingStart: 09-24-2025 End: 10-47-5868rcsvohtbnxTGKWHLFD TALPiedmont [facility] Hospital PPGStart: 09-11-2025 End: 77-40-6212zoguktcgawPAWGCYTOhioHealth Dublin Methodist Hospitaltart: 07-27-2025 End: 99-25-7861Mtjoiu OnlyDaksha Corona MD Work Phone: [facility] Pulmonary/Sleep MedicineComment on above:Dyspnea on exertion (Primary Dx)Start: 07-26-2025 End: 56-95-2128ljlztxdfrfYQGVMVPOhioHealth Dublin Methodist Hospitaltart: 06-11-2025 End: 55-76-5307Tsykwzzct encounterEmani Thornton PAPER CONE GRADER-PRODUCTION QUALITY MANAGER Work Phone: [facility] SurgeryStart: 05-21-2025 End: 89-49-3996Mswaarssw encounterEmani Thornton PAPER CONE GRADER-PRODUCTION QUALITY MANAGER Work Phone: [facility] SurgeryStart: 05-04-2025 End: 58-20-1539gjdnbjjgxvFZBTSE C [facility] Hospitaltart: 07-40-4784uslxohuyerXMGDZ K [facility] Hospitaltart: 04-18-2025 End: 94-79-6909ftahaaleeaKVJGBK C ONUOHAProMedica Kaweah Delta Medical Centertart: 04-05-2025 End: 04-30-2206lzbdllemyvHKCAVCT [facility] Centertart: 03-06-2025 End: 93-95-7158uxhfyleasfQXFJSTZSheltering Arms Hospitaltart: 02-06-2025 End: 45-76-5181icvjixeprnBXHNTNNSheltering Arms Hospitaltart: 03-01-2023 End: 36-10-3309aaqhiduqzjXADGOPA BOESFacility:J8Eankd: 01-15-2023 End: 81-69-8634zaebuizlhhSLMLQ NEFCYFacility:Y2Zjgjd: 63-18-7264Ltcludwzb for preprocedural laboratory examinationDR [place] .[facility] Start: 10-28-2022 End: 60-64-4597lfctsxcfbcCQFYLVJ E GRILLISFacility:[facility]OSPITALtart: 10-28-2022 End: 55-50-0881xemqshvleiCR T[place]IA [place] .Facility:P3Tikdu: 10-24-2022 End: 10-46-8544wvvdogxytlZP [place] .Facility:N5Ccpae: 10-24-2022 End: 59-91-7352Hmcujctxl for preprocedural laboratory examinationDR [place] .Facility:M0Qaxwx: 36-38-5293Qmahkvcbb for other preprocedural examinationMOHAMAD ALGHOTHANIThe [facility] Hospitaltart: 08-10-2022 End: 13-75-0031uvwwrvbxrhSDFFOFQ ALGHOTHANIFacility:B9Higjd: 08-10-2022 End: 11-50-6576Yediilelb for other preprocedural examinationMOHAMAD ALGHOTHANI Facility:J0Mdpny: 08-05-2022 End: 71-97-0463nynznfywjgSOCVZXB ALGHOTHANIFacility:Z1Mavcm: 05-14-2022 End: 22-53-3927kyfhumwbphWE DOCTOR MISCFacility:O7Juhvo: 04-26-2022 End: 25-78-2132Blixtrfnoi and management of inpatientDAVID WESTFacility:H1 Procedures DateProcedureProcedure DetailPerforming ClinicianStart: 52-49-2187Pnymoe-up visitFollow-upMELTATIANA BEARLITZYERStart: 16-08-4545YzqesrjurjyCrewdom Thornton PAPER CONE GRADER-PRODUCTION QUALITY MANAGER Work Phone: Plan of Treatment DateCare ActivityDetailAuthorStart: 73-43-7807FIsZ,Tdap and Td Vaccines (2 - Td or Tdap)DTaP,Tdap and Td Vaccines (2 - Td or Tdap)ProMRiverView Health Clinic SystemStart: 54-59-5518MLE ( or age 60+ yrs) (1 - 1-dose 75+ series)RSV ( or age 60+ yrs) (1 - 1-dose 75+ series)ProMRiverView Health Clinic SystemStart: 10-28-2027 Screening for malignant neoplasm of colonColonoscopyAdena [facility] Start: 21-26-9366Fqcmv BMI ScreeningAdult BMI ScreeningAdena Pike Medical Center System Start: 78-40-3539Vtuflkj ScreeningTobacco ScreeningProPremier Health [facility] SystemStart: 11-05-2025 End: 09-13-1989Huxcvfe encounter wheuequzk60/15/2025 10:00 AM EST Office Visit [facility] [address] [place] [address] [place] [address] [place] [address], [address] [place], [place] [phone] (Work) [facility] Pulmonary/Sleep MedicineStart: 09-24-2025 End: 80-29-2410Cbrpqkm encounter yybcoflxt45/03/2025 3:30 PM EST Office Visit [facility] [address] [place] [id number] Daksha Corona MD [address], [address] [place] [address] [facility] Pulmonary/Sleep MedicineStart: 63-92-1136VNQNL-19 Vaccine ( season)COVID-19 Vaccine ()[facility] SystemStart: 10-48-2207Tpgaanawu vaccinationInfluenza VaccineAdena [facility]ike Medical Center SystemStart: 51-21-4672NMZKX-19 Vaccine ( season)COVID-19 Vaccine ()[facility] SystemStart: 68-97-6467Bgyra BMI ScreeningAdult BMI ScreeningAdena Pike Medical Center SystemStart: 22-10-4498Mglywwyii aortic aneurysm screeningAbdominal Aortic Aneurysm (AAA) ScreenProPremier Health [facility] SystemStart: 72-45-3170Fetj Risk ScreeningFall Risk ScreeningProPremier Health [facility] SystemStart: 2003 Administration of varicella zoster vaccineZoster (Shingles) Vaccine (1 of 2) [facility] SystemStart: 58-02-3510Qzbei BMI Follow Up PlanAdult BMI Follow Up PlanAdena Pike Medical Center SystemStart: 59-30-0963Vwsmfjbxdh ScreeningDepression ScreeningAdena Pike Medical Center SystemStart: 57-69-0812Htejdma ScreeningTobacco ScreeningAdena [facility] System End: 96-92-5910Wuxxitxmu function test Complete PFT w/ BD (Spirometry (Flow Volume Loop) pre/post short acting bronchodilator w/ DLCO (diffusion study) and Lung Volume)Pulmonary function test Complete PFT w/ BD (Spirometry (Flow Volume Loop) pre/post short acting bronchodilator w/ DLCO (diffusion study) and Lung Volume) PFT Routine Dyspnea on exertion 1 Occurrencesstarting 07/27/2025 until 07/27/2026ProShoefitr Work Phone: Comment on above:1 Occurrences starting 07/27/2025 until 07/27/2026 End: 21-40-3649Jprnpzwns function test Spirometry (Flow Volume Loop) pre/post short acting bronchodilator w/ Lung VolumePulmonary function test Spirometry (Flow Volume Loop) pre/post short acting bronchodilator w/ Lung Volume PFT Routine Bronchospasm 1 Occurrences starting 09/24/2025 until 09/24/2026Pro[facility] Work Phone: Comment on above:1 Occurrences starting 09/24/2025 until 09/24/2026 Immunizations Immunization DateImmunizationNotCincinnati [facility]ers Hospital JesfhgwiPhcgrhrc16-83-2362chdqebcyz virus vaccine, unspecified formulationEmani Thornton PAPER CONE GRADER-PRODUCTION QUALITY MANAGER Work Phone: [facility] System Payers DatePayer CategoryPayerPolicy [id number] Managed Care - [employer] [id number] Insurance [id number] 2020MedicareMEDICARE [id number] [id number] [id number] 20.1.916562.3.57[id number] 20.1.231949.3.57[id number] 2.16.840.1.133969.3.57[id number] 2.16.840.1.373478.3.57[id number] 2.16.840.1.191769.3.57[id number] 2.16.840.1.576443.3.57[id number] 2.16.840.1.681927.3.57[id number] 2.16.840.1.053344.3.57[id number] 2.840.1.051885.3.57[id number] 2.16.840.1.290047.3.57[id number] 2..840.1.449485.3.57[id number] 2.840.1.354948.3.57[id number] 2.840.1.742885.3.579.2.1286 Social History DateTypeDetailFacilityStart: 67-11-0459Kszflrs smoking status NHISEx-smoker [facility] SystemHistory of tobacco useCurrent smokerProPremier Health [facility] SystemHistory of tobacco useCigarette SmokerProPremier Health [facility] SystemStart: 64-46-4044Cghcdaj use and exposureSmokeless tobacco non-userProPremier Health [facility] SystemStart: 09-28-2022 End: 14-46-4361Iuuvubcfb beverage intakeCurrent drinker of alcohol (finding) [facility] Alexander Campustart: 01-02-2021 End: 79-14-9687Tzjmvln of Social functionFrye Regional Medical Center Alexander Campustart: 01-02-2021 End: 52-23-7647Omxdqeu use panelLake County Memorial Hospital - WestChildcareUnknownPErlanger Western Carolina Hospitaltart: 97-91-2812Npjpseu CommentoccasionalLake County Memorial Hospital [facility] West Start: 19-82-9290Glm assigned at birthNot on fileFrye Regional Medical Center Alexander Campustart: 49-21-6688DmoWsxg (finding)[facility] WestHow often do you have a drink containing alcohol?NeverLake County Memorial Hospital [facility] West Functional Status EvftCeikpnjzwcZavnmcWwucomgo27-59-1978Vnjxn score [AUDIT-C]0 09/24/2025 3:25 PM EST Aubrie Simon, [facility] Clinical Notes 04-26-2022 to 09-24-2025 Note Date & YtsaRjjfUubskcmi96-50-5161 History of Present illness Narrative* Daksha Corona MD - 09/24/2025 3:30 PM EST Images from the original note were not included. [facility] PULMONARY/SLEEP MEDICINE [address] [address] Subjective: Chief Complaint Bronchospasm HPI [...] Acetaminophen Past Medical History: Diagnosis Date A-fib ([facility] 04/27/2022 Hx of gout Psoriasis History [...] test that he had on 03/16/2025 in [facility] showed FEV1 of 74% with improvement by [...] for involving me in this patient's care. Daksha Corona MD. Pulmonary and Critical Care Physician 09/24/25. Please note that portions of this note were generated using voice recognition [employer] dictation software. Although every effort was made to ensure the accuracy of this automated pellet machine operator, some errors in pellet machine operator may have occurred. documented in this encounterSpringfield HospitalSensorflare PC10-21-2025 NoteCardiovascular Medicine [facility] SUBJECTIVE Chief Complaint Patient presents with Follow-up 6 week follow up appointment. Patient had a recent flare up gout and was given allopurinol and colchicine. Patient states he had in both feet. Patient states if he has pain for the gout he has been taking aleve. 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 Patient denies chest pain, sob/drake, fatigue. Patient complains of occasional dizziness/lightheaded with position changes. Patient is no longer on Eliquis or Xarelto patient stopped on his own due to it not mixing well with alco Congestive Heart Failure Atrial Fibrillation Hypertension Cardiomyopathy Non ischemic Hyperlipidemia Atrial Flutter Edema Due to the gout. Garry Lu is a 70 y.o. male here for follow-up. His Kilo accompanied him today. Congestive Heart Failure Pertinent negatives include no chest pain, near-syncope or palpitations. Atrial Fibrillation Symptoms are negative for chest pain, palpitations and syncope. Past medical history includes atrial fibrillation, CHF and hyperlipidemia. Hypertension Pertinent negatives include no chest pain, malaise/fatigue, orthopnea, palpitations or PND. Hyperlipidemia Pertinent negatives include no chest pain. PMHx: A-fib/atrial flutter s/p recent pulmonary vein isolation ablation 03/02/[address] Feliciano, tachycardia induced nonischemic cardiomyopathy, he has normal coronary arteries on cardiac catheterization 08/12/2022, HTN 09/11/2025 His Kilo accompanied him today. After we last saw him, we switched Eliuqis to Xarelto. He notes he had another gout flare up so he stopped taking this. He feels like medications either cause him to have gout issues or psoriasis issues. Discussed other options outside of Eliquis or Xarelto which would include warfarin. (Pradaxa with increased risk of gout/gout sx's). If unable to tolerate coumadin, next option would be to consider an LAAO device. He would like to try lower dose of Xarelto and see if he tolerates it. He understands the lower dose doesn't give him the full stroke risk reduction like the higher dose. BP is high today. He doesn't care for checking his BP at home. He will be seeing an data warehousing specialist to help with his vision changes. He also will be seeing pulmonary for his breathing issues. 07/26/2025 Since last seen he under went an ECHO. He has also decided to stop all of his medications. He notes they were causing him significant side effects such as vision changes, worsening psoriasis. His BP is elevated today. He states he feels great. Denies c/o CP, dyspnea, orthopnea, PND, LE edema, dizziness/LH, palpitations, syncope. 04/05/2025 He is feeling well overall. He [...] continued cough in the AM/chest congestion. 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 SUBJECTIVE Chief Complaint Patient presents with Congestive Heart Failure Atrial Fibrillation Hypertension Nonischemic cardiomyopathy Typical atrial flutter Hyperlipidemia 3 month follow up With recent Echo Garry Lu is a 70 y.o. male here for follow-up. Congestive Heart Failure Pertinent negatives include no chest pain, near-syncope or palpitations. Atrial Fibrillation Symptoms are negative for chest pain, palpitations and syncope. Past medical history includes atrial fibrillation, CHF and hyperlipidemia. Hypertension Pertinent negatives include no chest pain, malaise/fatigue, orthopnea, palpitations or PND. Hyperlipidemia Pertinent negatives include no chest pain. PMHx: A-fib/atrial flutter s/p recent pulmonary vein isolation ablation 03/02/[address] Feliciano, tachycardia induced nonischemic cardiomyopathy, he has normal coronary arteries on cardiac catheterization 08/12/2022, HTN 07/26/2025 Since last seen he under went an ECHO. He has also decided to stop all of his medications. He notes they were causing him significant side effects such as vision changes, worsening psoriasis. His BP is elevated today. He states he feels great. Denies c/o CP, dyspnea, orthopnea, PND, LE edema, dizziness/LH, palpitations, syncope. 04/05/2025 He is feeling well overall. He [...] continued cough in the AM/chest congestion. 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 of [...] use NICM (nonischemic cardiomyopathy) (CMS/HCC) Pure hypertriglyceridemia Drug-induced gout, left ankle and foot Gout attack Lung nodule seen on imaging study Overweight Past Medical History: Diagnosis Date Abnormal ECG [...] date: 05/05/1971 Quit date: 05/05/1981 Years since quittin.2 Smokeless tobacco: Never Vaping Use Vaping status: Never Used Substance Use Topics Alcohol use: Yes Alcohol/week: 16.0 standard drinks of alcohol Types: 8 Glasses of wine, 8 Shots of liquor per week Comment: beer daily evening mixed drinks Drug use: Never Allergies Allergen Reactions Losartan Unknown Tylenol [Acetaminophen] Other Skin bumps Review of Systems Constitutional: Negative for chills, decreased appetite, fever, malaise/fatigue and weight gain. Cardiovascular: Positive for dyspnea on exertion. Negative for chest pain, irregular heartbeat, leg swelling, near-syncope, orthopnea, palpitations, paroxysmal nocturnal dyspnea and syncope. Respiratory: Positive for sputum production. Hematologic/Lymphatic: Negative for bleeding problem. Does not bruise/bleed easily. OBJECTIVE Visit Vitals BP 166/86 (BP Location: Right arm, Patient Position: Sitting) Pulse 63 Ht 1.829 m (6') Wt 89.8 kg (198 lb) SpO2 98% BMI 26.85 kg/m??? Smoking Status Former BSA 2.14 m??? Medications: Current Outpatient Medi (more content not included)...[facility]07-21-2025 Miscellaneous Notes* Telephone Encounter - Kenyetta Ross - 06/11/2025 11:44 AM EDT Called [facility] regarding the positive cologuard referral that our office received from Dr Garcia, left a message on his voicemail to call the office back to schedule an appointment. Had previously tried to schedule an appointment but [facility] wanted to discuss with PCP to make sure that he needs another colonoscopy. * Telephone Encounter - Kenyetta Ross - 06/11/2025 11:44 AM EDT Called Wero regarding the referral that our office received, left a message on his voicemail to callthe office back to schedule an appointment. * Telephone Encounter - Kenyetta Ross - 06/11/2025 11:44 AM EDT Called Wero regarding the referral that our office received, left a message on his voicemail to callthe office back to schedule an appointment. [facility]* Telephone Encounter - Kenyetta Ross - 06/11/2025 11:44 AM EDT Called [facility]ero regarding the positive cologuard referral that our office received from Dr Garcia, left a message on his voicemail to call the office back to schedule an appointment. Had previously tried to schedule an appointment but [facility] wanted to discuss with PCP to make sure that he needs another colonoscopy. [facility]07-21-2025 Telephone encounter Note* Telephone Encounter - Kenyetta Ross - 06/11/2025 11:44 AM EDT Called Wero regarding the referral that our office received, left a message on his voicemail to callthe office back to schedule an appointment. [facility]07-21-2025 Telephone encounter Note* Telephone Encounter - Kenyetta Ross - 06/11/2025 11:44 AM EDT Called Wero regarding the referral that our office received, left a message on his voicemail to callthe office back to schedule an appointment. [facility]06-30-2025 Miscellaneous Notes* Telephone Encounter - Kenyetta Ross - 05/21/2025 11:18 AM EDT Called Garry regarding the positive cologuard referral that our office received from Dr Garcia, left a message to call the office back to schedule an appointment. Also: 5 YEAR RECALL, LAST COLONOSCOPY 10/28/2022 @ [facility] * Telephone Encounter - Kenyetta Ross - 05/21/2025 11:18 AM EDT Called Wero regarding the referral that our office received, left a message on voicemail to call theoffice back to schedule an appointment. * Telephone Encounter - Kenyetta Ross - 05/21/2025 11:18 AM EDT Wero called the office back, was not [...] have a colonoscopy done. [facility] Tele[facility] encounter Note* Telephone Encounter - Kenyetta Ross - 05/21/2025 11:18 AM EDT Called Garry regarding the positive cologuard referral that our office received from Dr Garcia, left a message to call the office back to schedule an appointment. Also: 5 YEAR RECALL, LAST COLONOSCOPY 10/28/2022 @ [facility] Telephone encounter Note* Telephone Encounter - Kenyetta Ross - 05/21/2025 11:18 AM EDT Called Wero regarding the referral that our office received, left a message on voicemail to call theoffice back to schedule an appointment. [facility] Telephone encounter Note* Telephone Encounter - Kenyetta Ross - 05/21/2025 11:18 AM EDT Wero called the office back, was not [...] if wants to have a colonoscopy done. [facility] [employer] [id number] NoteXR CHEST 2 VWS Procedure: Chest x-ray performed Number of views:2 History:Chronic cough Comparison:None Findings: The heart and lungs show no acute findings, and the mediastinum and donell are grossly negative . Impression: 1. No acute change. Finalized by Arthur Bray MD on 05/04/2025 10:13 [facility] 04-05-[address] [facility] SUBJECTIVE Chief Complaint Patient presents with Hypertension Garry Lu is a 70 y.o. male here for [...] continued cough in the AM/chest congestion. 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 Patient states he is feeling good cardiac kyle. Patient states he had his PFT done recently. Patient states he would like to talk about getting off the Metoproolo due to muscle pain and feeling like bugs crawling on him. Review of Systems Constitutional: Negative.[facility]04-15-2025 Note Cardiovascular Medicine [facility] SUBJECTIVE Chief Complaint Patient presents with Hypertension Atrial Fibrillation Cardiomyopathy Garry Lu is a 70 y.o. male here for follow-up. HPI PMHx: A-fib/atrial flutter s/p recent pulmonary vein isolation ablation 03/02/[address] Feliciano, tachycardia induced nonischemic cardiomyopathy, he has normal coronary arteries on cardiac catheterization 08/12/2022, HTN 03/06/2025 BP at home running 160s/90s. He has been feeling well. Denies c/o cp, dyspnea, neuro sx's. He has continued cough in the AM/chest congestion. 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 Lab (more content not included)...[facility]04-15-2025 NotePatient here for a follow up appointment. Patient did not have his PFT done. Patient states he was never called to do the PFT. Patient states he has been feeling pretty good. Patient denies chest pain, SOB. Patient states he had lots of phlegm and coughing at night patient states he take lots of [place] cough drops to clear up the phlegm so he can go back to sleep. Patient wonders if this could be from the metoprolol. Patient states he is not taking the Losartan, patient states when the does was increased he broke out with psoriasis. Review of Systems Constitutional: Negative.[facility]03-18-2025 Note Patient here for 6 mo follow up persistent afib, valve disorder, hypertension, [...] myalgias. All other systems reviewed and are negative.[facility] 02-06-2025 NoteCardiovascular Medicine [facility] SUBJECTIVE Chief Complaint Patient presents with Atrial Fibrillation Hypertension Congestive Heart Failure Garry Lu is a 69 y.o. male here for [...] Final Atrial Rate 0 (more content not included)...[facility] 04-26-2022 NotePROCEDURE: XR KNEE LT 4V or > COMPARISON: None. HISTORY: Swelling FINDINGS: BONES:No fracture, acute abnormality, or significant arthropathy. SOFT TISSUES:Negative. No visible soft tissue swelling. EFFUSION:Moderate suprapatellar joint effusion OTHER: Negative. IMPRESSION: Moderate joint effusion Electronically authenticated by: NICK CABRALES Date: 2022-04-26 10:09[facility] Diagnosis Dyspnea on exertion- Primary Other dyspnea and respiratory abnormality [facility]* Diagnosis Bronchospasm- Primary Acute bronchospasm Shortness of breath Nodule of lower lobe of right lung History of smoking Personal history of tobacco use, presenting hazards to health documented in this encounter [facility] System[facility]ructionsNot on filedocumented in this encounter [facility] SystemInstructionsNot on filedocumented in this encounter [facility] SystemInstructionsNot on filedocumented in this encounter [facility] Summary Purpose Family History No Family History [...] section and content) DATE CREATED AUTHOR 10/30/2022 [facility] DATE CREATED AUTHOR AUTHOR'S ORGANIZ ATION 03/17/2023 [facility] DATE CREATED AUTHOR AUTHOR'S ORGANIZ ATION 05/07/2025 [facility] DATE CREATED AUTHOR AUTHOR'S ORGANIZ ATION 09/12/2025 [facility] DATE CREATED AUTHOR AUTHOR'S ORGANIZ ATION 09/25/2025 [facility] Care Teams (unrecognized sec tion and content) Team MemberRelationshipSpecialtyStart DateEnd Date Corinne Garcia MD [address] [place] [address] PCP - [facility] Medicine05/17/25Team MemberRelationshipSpecialtyStart DateEnd Date Corinne Garcia MD [address] [place] [address] PCP - [facility]05/17/25Team MemberRelationshipSpecialtyStart DateEnd Date Corinne Garcia MD [address] [place] [address] PCP - [facility]05/17/25 Reason for Visit (unrecogniz ed section and content) ReasonCommentsNew PatientReferral: from Dr Garcia, PCP, for bronchospasmSays bronchospasms are better since using Smoker: formerHow lon yearsPacks per Day: 1 pack per daySOB: rarelyO2: noneSleep Apnea: noneImaging: CXR 05/04/25PFT: ordered did not due. Had one in past and said he would not do againSpecialty Diagnoses / ProceduresReferred By ContactReferred To ContactPulmonary Disease / Pulmonary Medicine Diagnoses Bronchospasm Corinne Garcia MD [address] [place] [address] Phone: tel: fax: [facility] [address] [facility] [address] [place] [address] Phone: tel: fax: Referral IDStatusReasonStart DateExpiration DateVisits RequestedVisits [id number] Review Specialty Services Required FOR RECORDS PERTAINING TO PATIENTS WHO ARE [...] BE BASED ON THE PRIMARY CLINICAL RECORDS. [employer] provides no warranty or guarantee of the accuracy or completeness of information in this document.
--- NOTE | 2025-10-30 11:06 | XR_ITS ---
[facility] [place] [id number] Patient Name: GARRY STREETER MRN: [id number] date: 1955 Sex: M Assigned Patient Location: LAB Current Patient Location: LAB Accession/Order Number: [id number] Exam Date: 10/30/2025 11:32 Report Date: 10/30/2025 21:35 At the request of: SADIQ VASQUEZ MD Procedure: XR hand DELORES 2V XR hand DELORES 2V 10/30/2025 11:36 AM SIGNS AND SYMPTOMS: ^Arthritis Of Hand, Chronic Idiopathic Gout PROTOCOL: Frontal and lateral radiographs of the bilateral hands COMPARISON: None FINDINGS: There is narrowing of the metacarpophalangeal joint of the thumb on the left as well as the first and second digits of the right. There is no fracture or dislocation. The interphalangeal joints are preserved. There is soft tissue swelling along the dorsum of the metacarpophalangeal joints, right greater than left. Erosive changes are noted in the head of the right second metacarpal with periarticular calcifications possibly relating to gouty arthritis. XR/XR hand DELORES 2V IMPRESSION: Degenerative changes are noted in the first metacarpal phalangeal joint bilaterally and the second metacarpophalangeal joint on the right with accompanying dorsal soft tissue swelling. Erosive changes are noted in the head of the right second metacarpal with periarticular calcifications possibly relating to gouty arthritis. Impression dictated by: Jaguar Sullivan M.D. 10/30/2025 9:35 PM Dictation Location: [place] [address] Electronically authenticated by: [id number] Y Date: 10/30/2025 21:35
[2025-10-30 11:45] LABS: Uric Acid 5.0 mg/dL (3.5-7.2)
[2025-10-31 11:09] LABS: Anti-CCP Ab, IgG/IgA 8 units (0-19)
== END 2025-10-30 10:42 | disposition home or self-care (01) ==
LOC: LAB 10:45
PROVIDERS: Visit Provider Internal Medicine Rheumatology
DX: L40.9 Psoriasis, unspecified (principal); M19.049 Primary osteoarthritis, unspecified hand; M1A.00X0 Idiopathic chronic gout, unspecified site, without tophus (tophi)
CPT/HCPCS: 36415; 73120; 84550; 86200; 86431